=== PATIENT | male | born 1955 | race Caucasian/White ===

== ENCOUNTER 2020-07-08 17:27 | Emergency (ER) | payer MEDICAID, SELFPAY ==
[2020-07-08 17:33] VITALS: BP 111/72; PULSE 73; RESP 26; TEMP 36.9; O2SAT 95; BMI 41.1
[2020-07-08 17:45] VITALS: BP 111/72; PULSE 73; RESP 26; TEMP 36.9; O2SAT 95
--- NOTE | 2020-07-08 17:47 | XR_ITS ---
EXAMINATION: XR CHEST CLINICAL INFORMATION: Dyspnea and chest pain COMPARISON: 12/20/2019 TECHNIQUE: Frontal view of the chest was obtained. FINDINGS: Again seen are changes of median sternotomy and CABG sized heart no CHF. The lungs are hyperinflated compatible with COPD no infiltrates, effusions or lung masses are seen IMPRESSION: No acute intrathoracic disease. No interval change when compared to 12/20/2019
--- NOTE | 2020-07-08 17:47 | ECG_ITS ---
Test Reason : CHEST PAIN Blood Pressure : / mmHG Vent. Rate : 066 BPM Atrial Rate : 066 BPM P-R Int : 174 ms QRS Dur : 092 ms QT Int : 418 ms P-R-T Axes : 061 080 082 degrees QTc Int : 438 ms Normal sinus rhythm Normal ECG When compared with ECG of 20-DEC-2019 23:15, Atrial fibrillation with rapid ventricular response is no longer Present Nonspecific T wave abnormality no longer evident in Inferior leads Referred By: Leonila Bryson Electronically Signed By:AXEL LUCIO
--- NOTE | 2020-07-08 18:13 | PC.NURSE ---
PATIENT A&OX3, NSR 70S ON SWITCH ENGINEER, VSS, PT REFUSING IV AND LAB WORK, EKG PERFORMED, WILL NOTIFY PROVIDER
[2020-07-08 18:14] VITALS: PULSE 69
--- NOTE | 2020-07-08 18:15 | PC.NURSE ---
CXR BEING PERFORMED
--- NOTE | 2020-07-08 20:42 | ED.CHESTPAIN ---
HPI - Chest Pain General Chief Complaint: Chest Pain <EDELMIRA Smith Last Filed: 07/08/20 21:40> Stated Complaint: CHEST PAIN <EDELMIRA Smith Last Filed: 07/08/20 21:40> Time Seen by Provider: 07/08/20 17:37 <EDELMIRA Smith Last Filed: 07/08/20 21:40> Source: patient <EDELMIRA Smith Last Filed: 07/08/20 21:40> Mode of arrival: ambulatory <EDELMIRA Smith Last Filed: 07/08/20 21:40> Limitations: no limitations <EDELMIRA Smith Last Filed: 07/08/20 21:40> History of Present Illness HPI narrative: 64yoM c PMHx of myocardial infarction, hyperlipidemia and COPD presenting to the ED via ems c c/o Mid-sternal Chest pain that started around 4PM 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 Shortness of breath is worsened with exertion especially with walking stairs or short distances. Denies headaches, dizziness, lightheadedness, changes in vision, jaw pain, back pain, abdominal pain, nausea/vomiting, weakness, confusion, leg or any extremity swelling or edema. Patient was given 324 mg of chewable aspirin by EMS prior to arrival and patient denies any symptomatic relief. <EDELMIRA Smith Last Filed: 07/08/20 21:40> Related Data Allergies/Adverse Reactions: Allergies Allergy/AdvReac Type Severity Reaction Status Date / Time No Known Allergies Allergy Unverified 06/20/20 14:56 [No Known Allergies*] <EDELMIRA Smith - Last Filed: 07/08/20 21:40> Review of Systems Review of Systems: Yes all other systems are reviewed and are negative <EDELMIRA Smith Last Filed: 07/08/20 21:40> Constitutional: Constitutional: Reports as per HPI, Denies excessive sweating, Denies fatigue, Denies lethargy, Denies malaise and Denies night sweats <EDELMIRA Smith Last Filed: 07/08/20 21:40> Eyes: Eyes: Reports as per HPI <EDELMIRA Smith Last Filed: 07/08/20 21:40> ENT: Reports as per HPI, Denies dizziness and Denies neck pain <EDELMIRA Smith - Last Filed: 07/08/20 21:40> Cardiovascular: Cardiovascular: Denies diaphoresis, Denies syncope, Denies rapid heart rate, Denies pedal edema, Denies edema, Denies irregular heart rhythm, Denies claudication, Denies leg edema, Denies lightheadedness, Denies radiating jaw, neck or arm pain, Denies palpitations and Denies slow heart rate <EDELMIRA Smith - Last Filed: 07/08/20 21:40> Respiratory: Respiratory: Reports as per HPI and Denies cough <EDELMIRA Smith - Last Filed: 07/08/20 21:40> Gastrointestinal: Gastrointestinal: Reports as per HPI <EDELMIRA Smith - Last Filed: 07/08/20 21:40> Genitourinary: Genitourinary: Reports as per HPI <EDELMIRA Smith - Last Filed: 07/08/20 21:40> Musculoskeletal: Musculoskeletal: Reports as per HPI, Denies neck pain, Denies numbness and Denies tingling <EDELMIRA Smith - Last Filed: 07/08/20 21:40> Integumentary/Breasts: Skin/Breast: Reports as per HPI <EDELMIRA Smith - Last Filed: 07/08/20 21:40> Neurologic: Reports as per HPI, Denies dizziness, Denies syncope, Denies numbness and Denies tingling <EDELMIRA Smith - Last Filed: 07/08/20 21:40> Psychiatric: Psychiatric: Reports as per HPI <EDELMIRA Smith - Last Filed: 07/08/20 21:40> Endocrine: Endocrine: Reports as per HPI, Denies excessive sweating, Denies fatigue and Denies palpitations <EDELMIRA Smith - Last Filed: 07/08/20 21:40> Hematologic/Lymphatic: Hematologic/Lymphatic: Reports as per HPI <EDELMIRA Smith - Last Filed: 07/08/20 21:40> Allergic/Immunologic: Allergic/Immunologic: Reports as per HPI <EDELMIRA Smith - Last Filed: 07/08/20 21:40> [facility] Past Medical History Attestation statement: The following information was validated with the patient. <EDELMIRA Smith - Last Filed: 07/08/20 21:40> Medical History: Medical History COPD (chronic obstructive pulmonary disease) Hypercholesteremia Myocardial infarction <EDELMIRA Smith - Last Filed: 07/08/20 21:40> Social History Social History: Social History Alcohol intake: current Alcohol intake frequency: 3 or more drinks per day Alcohol type: beer Smoking Status: Current every day smoker Smoked in Last 30 Days: Yes Use of substances other than those prescribed or required for medical reasons: No Advance Directives: No Advance Directives Information Provided: Yes <EDELMIRA Smith - Last Filed: 07/08/20 21:40> Physical Exam Vital Signs and I&O and Narrative: Vital Signs and I&O: Vital Signs Temp 98.4 F 07/08/20 17:45 Pulse 69 07/08/20 18:14 Resp 26 H 07/08/20 17:45 BP 111/72 07/08/20 17:45 Pulse Ox 95 07/08/20 17:45 Intake & Output 07/08/20 07/08/20 07/09/20 06:59 18:59 06:59 Weight 130 kg Body Mass Index 41.1 <EDELMIRA Smith - Last Filed: 07/08/20 21:40> Vital Signs and I&O: Vital Signs Temp 98.4 F 07/08/20 17:45 Pulse 69 07/08/20 18:14 Resp 26 H 07/08/20 17:45 BP 111/72 07/08/20 17:45 Pulse Ox 95 07/08/20 17:45 Intake & Output 07/08/20 07/08/20 07/09/20 06:59 18:59 06:59 Weight 130 kg Body Mass Index 41.1 <Marcos Nation DO - Last Filed: 07/09/20 02:28> Const: General: cooperative, no acute distress, well developed, alert, awake, Physically active and poor hygiene <EDELMIRA Smith - Last Filed: 07/08/20 21:40> Nutritional Appearance: thin <EDELMIRA Smith - Last Filed: 07/08/20 21:40> Orientation/consciousness: patient oriented x3 <EDELMIRA Smith - Last Filed: 07/08/20 21:40> Limitations: no limitations <EDELMIRA Smith Last Filed: 07/08/20 21:40> HENMT: Head: Yes normal to inspection, Yes No palpable skull fracture present, Yes normocephalic and Yes atraumatic <EDELMIRA Smith - Last Filed: 07/08/20 21:40> Ears: hearing grossly normal bilaterally <EDELMIRA Smith - Last Filed: 07/08/20 21:40> General nose exam: Normal external nose present <EDELMIRA Smith - Last Filed: 07/08/20 21:40> Face and sinus: Yes normal facial exam <EDELMIRA Smith - Last Filed: 07/08/20 21:40> Mouth: Normal oral and palatal mucosa present and moist mucous membranes <EDELMIRA Smith - Last Filed: 07/08/20 21:40> Throat: Yes posterior oropharynx normal and Yes uvula midline <EDELMIRA Smith - Last Filed: 07/08/20 21:40> Eyes: General: appearance normal, both eyes and all related structures <EDELMIRA Smith - Last Filed: 07/08/20 21:40> Visual Hernández: normal visual hernández by confrontation <EDELMIRA Smith Last Filed: 07/08/20 21:40> Alignment and Position: alignment normal <EDELMIRA Smith - Last Filed: 07/08/20 21:40> Periorbital: periorbital findings normal <EDELMIRA Smith - Last Filed: 07/08/20 21:40> Eyelids: Yes eyelids normal <EDELMIRA Smith - Last Filed: 07/08/20 21:40> Conjunctivae: conjunctivae normal <EDELMIRA Smith Last Filed: 07/08/20 21:40> Sclerae: sclerae normal <EDELMIRA Smith - Last Filed: 07/08/20 21:40> Corneas: corneas normal <EDELMIRA Smith Last Filed: 07/08/20 21:40> Pupils: Equal, round and reactive pupils present, Pupils normal by confrontation and Pupil accommodation reflex normal <EDELMIRA Smith Last Filed: 07/08/20 21:40> EOM: EOMs intact bilaterally <EDELMIRA Smith Last Filed: 07/08/20 21:40> Direct Ophthalmoscopy: normal light reflex <EDELMIRA Smith Last Filed: 07/08/20 21:40> Neck: Neck: Yes normal visual inspection, Yes full ROM, Yes no lymphadenopathy, Yes no meningeal signs, Yes trachea midline and Yes supple <Leonila Bryson [facility] Last Filed: 07/08/20 21:40> Chest: Chest palpation & inspection: normal inspection of the chest, normal palpation of entire chest wall and tenderness sternum <EDELMIRA Smith Last Filed: 07/08/20 21:40> Resp: Effort & Inspection: normal respiratory effort, audible wheezes, Actively coughing, decreased respiratory effort, no respiratory distress and no stridor <Leonila Bryson [facility] Last Filed: 07/08/20 21:40> Auscultation: no crackles, no rales, no rhonchi, wheezes expiratory wheezes, inspiratory wheezes, scattered wheezes and throughout and diminished lung sounds <EDELMIRA Smith Last Filed: 07/08/20 21:40> Cardio: Rate: regular rate <EDELMIRA Smith Last Filed: 07/08/20 21:40> Rhythm: regular rhythm <EDELMIRA Smith Last Filed: 07/08/20 21:40> Heart sounds: S1 normal heart sound present and S2 normal heart sound present <EDELMIRA Smith Last Filed: 07/08/20 21:40> Peripheral pulses: Peripheral pulses 2+ throughout <EDELMIRA Smith Last Filed: 07/08/20 21:40> GI: Inspection: Yes normal to inspection <EDELMIRA Smith Last Filed: 07/08/20 21:40> Palpation (GI): Soft to palpation, nontender and No hepatosplenomegaly present <EDELMIRA Smith Last Filed: 07/08/20 21:40> Percussion: Yes normal to percussion <EDELMIRA Smith - Last Filed: 07/08/20 21:40> Auscultation: normal bowel sounds <EDELMIRA Smith Last Filed: 07/08/20 21:40> Back/Spine/Pelvis: Cervical Spine: normal cervical lordosis and cervical ROM normal <Leonila Bryson CO - Last Filed: 07/08/20 21:40> Thoracic/Lumbar Spine: thoracic and lumbar spine normal to inspection and thoraco-lumbar ROM normal <Leonila Bryson CO - Last Filed: 07/08/20 21:40> Skin: General skin exam: no rashes or lesions noted, elasticity normal and turgor normal <EDELMIRA Smith - Last Filed: 07/08/20 21:40> Neuro: General: patient oriented x3 and no meningeal signs <EDELMIRA Smith Last Filed: 07/08/20 21:40> Cranial nerves: Yes Equal, round and reactive pupils present <EDELMIRA Smith Last Filed: 07/08/20 21:40> Extrem: General: Yes normal to inspection, Yes full ROM, Yes capillary refill normal, Yes normal exam except as noted, Yes no joint enlargement, Yes no pedal edema, Yes no calf tenderness and Yes normal gait <EDELMIRA Smith - Last Filed: 07/08/20 21:40> Right upper extremity: normal to inspection and full ROM <EDELMIRA Smith - Last Filed: 07/08/20 21:40> Left upper extremity: normal to inspection and full ROM <EDELMIRA Smith Last Filed: 07/08/20 21:40> Right lower extremity: normal to inspection and full ROM <EDELMIRA Smith - Last Filed: 07/08/20 21:40> Left lower extremity: normal to inspection and full ROM <EDELMIRA Smith Last Filed: 07/08/20 21:40> Psych: Appearance: grossly normal <EDELMIRA Smith Last Filed: 07/08/20 21:40> Mental Status: mental status grossly normal <EDELMIRA Smith Last Filed: 07/08/20 21:40> Speech and movement: Normal speech and movement present <EDELMIRA Smith - Last Filed: 07/08/20 21:40> Affect: normal affect <EDELMIRA Smith - Last Filed: 07/08/20 21:40> Attitude: cooperative <EDELMIRA Smith - Last Filed: 07/08/20 21:40> Thought process: Normal thought process present <EDELMIRA Smith - Last Filed: 07/08/20 21:40> Thought content: Normal thought content present <EDELMIRA Smith - Last Filed: 07/08/20 21:40> Insight: Good insight present (Psych) <EDELMIRA Smith - Last Filed: 07/08/20 21:40> Judgement: Good judgement present (Psych) <EDELMIRA Smith Last Filed: 07/08/20 21:40> Course Course Course Narrative: -Patient seen at 17:37PM 64yoM c PMHx of myocardial infarction, hyperlipidemia and COPD presenting to the ED via ems c c/o Mid-sternal Chest pain that started around 4PM 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 Shortness of breath is worsened with exertion especially with walking stairs or short distances. Denies headaches, dizziness, lightheadedness, changes in vision, jaw pain, back pain, abdominal pain, nausea/vomiting, weakness, confusion, leg or any extremity swelling or edema. Patient was given 324 mg of chewable aspirin by EMS prior to arrival and patient denies any symptomatic relief. - Concern for [place] vs COPD exacerbation vs PNA - Plan: Labs, CXR, EKG. Then re-evaluate - when the nurse went in to draw the patient's labs he decided to leave against medical advice/eloped and refused all labs and further evaluation and treatment. Grace and the nursing stack supervisor and I tried to convince the patient to stay for blood work and the patient refused therefore she called the cab to bring him home. Patient was instructed to return if any new or worsening symptoms. <EDELMIRA Smith Last Filed: 07/08/20 21:40> MDM - Chest Pain ECG Data ECG #1: Attestation: I personally reviewed and interpreted this ECG as follows: <EDELMIRA Smith - Last Filed: 07/08/20 21:40> ECG interpretation date: 07/08/20 <EDELMIRA Smith - Last Filed: 07/08/20 21:40> ECG interpretation time: 17:53 <EDELMIRA Smith - Last Filed: 07/08/20 21:40> Interpretation: Normal sinus rhythm with a ventricular rate of 66 normal NV interval, normal axis, normal QRS, normal QTC, no ST-T wave changes, no acute ischemic changes noted. Similar when compared to prior on 12/20/2019 <EDELMIRA Smith - Last Filed: 07/08/20 21:40> Discharge Plan Discharge Clinical Impression: Chest pain, Acute dyspnea <EDELMIRA Smith - Last Filed: 07/08/20 21:40> Patient Disposition: Elopement <EDELMIRA Smith - Last Filed: 07/08/20 21:40> Discharge Date/Time: 07/08/20 19:46 <EDELMIRA Smith - Last Filed: 07/08/20 21:40>
== END 2020-07-08 19:46 | disposition left against medical advice (07) ==
PROVIDERS: Emergency Provider Emergency Medicine
DX: R07.9 Chest pain, unspecified (principal); R06.00 Dyspnea, unspecified; I25.2 Old myocardial infarction; E78.5 Hyperlipidemia, unspecified; Z79.899 Other long term (current) drug therapy
CPT/HCPCS: 71045; 93005; 93010; 99284

== ENCOUNTER → 2020-08-12 14:07 | Outpatient (BNVA) | payer MEDICAID, SELFPAY | PROVIDERS: Visit Provider Internal Medicine Cardiovascular Disease | DX: I25.5 Ischemic cardiomyopathy (principal); E78.01 Familial hypercholesterolemia; F10.10 Alcohol abuse, uncomplicated; Z95.1 Presence of aortocoronary bypass graft; Z79.82 Long term (current) use of aspirin; Z79.899 Other long term (current) drug therapy; Z72.0 Tobacco use | CPT/HCPCS: 93005; 99202 ==

== ENCOUNTER → 2020-08-19 07:28 | Outpatient (REF) | payer MEDICAID, SELFPAY ==
--- NOTE | 2020-08-19 07:43 | CA_ITS ---
Transthoracic Echocardiogram Patient (Last, First, Middle): Noble Valencia F Gender: Male Date of : 1955 Age: 65 Procedure Date: 08/19/2020 Procedure Type: Transthoracic Echocardiogram Location: OP Height: 177.8 cm Weight: 61.24 kg BSA: 1.77 m2 Heart Rate: bpm BP: 118 / 60 mmHg Mental Health Program Manager: Referring MD: Luca Prado MD Symptoms: I25.5 ISCHEMIC CMP Study Quality: Fair ECG Rhythm: Sinus Conclusions: - The left ventricular systolic function is normal. The visually estimated ejection fraction is between 55-60%. - The basal inferior segment is akinetic. - No obvious valvular pathology seen on this study. - Moderate pulmonary hypertension is present. Findings Left Ventricle Normal left ventricular cavity size. There is normal left ventricular wall thickness. The left ventricular systolic function is normal. The visually estimated ejection fraction is between 55-60%. There is evidence of regional wall motion abnormalities. Diastolic function is normal for age. Wall Motion Rest Echo Findings The basal inferior segment is akinetic. Right Ventricle Normal right ventricular cavity size. There is low normal right ventricular systolic function. Atria Both atria are normal in size. Aortic Valve The aortic valve was not well visualized. There is no aortic valve stenosis. There is no aortic valve regurgitation. Mitral Valve The mitral valve appears normal. There is mild mitral valve regurgitation. There is no mitral valve stenosis. Pulmonic Valve The pulmonic valve was not well visualized. Tricuspid Valve Normal tricuspid valve structure. There is mild tricuspid valve regurgitation. The right ventricular systolic pressure is 56 mmHg. Moderate pulmonary hypertension is present. Great Vessels The asc aorta is normal in size. Venous The inferior vena cava is mildly dilated and collapses greater than 50% with inspiration. Pericardium/Pleural There is no evidence of pericardial effusion. Prior Study Comparison Changes noted compared to prior study dated: 03/30/2018. Wall motion abnormalities not well visualized in prior study. RVSP higher. Recommendations, Care & Conclusions No obvious valvular pathology seen on this study. Measurements 2D Linear Measurements IVSd: 0.92 0.6-0.9/0.6-1.0 cm LVIDd: 4.60 3.9-5.3/4.2-5.9 cm LVIDd Index: 2.60 2.4-3.2/2.2-3.1 cm/m2 LVIDs: 3.36 2.0-3.6 cm LVPWd: 1.08 0.7-1.1 cm Ao Root: 3.00 2.1-3.5 cm LA Diam: 4.30 2.7-3.8/3.0-4.0 cm LAIDs Index: 2.43 1.5-2.3 cm/m2 LV Mass: 197.49 67-162/88-224 g LV Mass Index: 111.58 43-95/49-115 g/m2 LVOT Diam: 2.10 3.0+(-)1.3 cm 2D Systolic Function EF 4C: 59.80 >55% EF 2C: 54.20 >55% EF BiP: 58.10 >55% Mitral Valve MV Pk E: 0.72 MV PK A: 0.69 MV Decel Time: 137.00 E/A: 1.00 E'Lateral: 11.90 E'Medial: 9.48 E/E' Med: 7.60 E/E' Lat: 6.00 PHT: 40.00 MVA PHT: 5.50 Decel Lyman: 5.23 Aortic Valve AoV Pk Sang: 1.18 AoV Mn Sang: 0.78 AoV VTI: 0.26 AoV Pk Grad: 6.00 Aov Mn Grad: 3.00 KWESI Cont.VTI: 2.42 LVOT LVOT Pk Sang: 0.76 LVOT Mn Sang: 0.54 LVOT VTI: 0.18 LVOT Pk Grad: 2.00 LVOT Mn Grad: 1.00 LVOT Diam: 2.10 LVOT Area: 3.46 Diastolic Function MV Pk E: 0.72 MV Pk A: 0.69 E/A: 1.00 E'Medial: 9.48 E/E' Med: 7.60 E' Laterial: 11.90 E/E' Lat: 6.00 Tricuspid Valve TR Pk Sang: 3.45 TR Pk Grad: 48.00 RA Press: 8.00 RVSP: 56.00 Great Vessels Aorta Ao Root-2D: 3.00 2.0-3.7 cm Pulmonary Valve PV Pk Sang: 1.00 Peak PV Grad: 4.00 Updated in Other Vendor System with Status of Final Walter Richardson MD electronically signed on 08/20/2020 11:49:43 AM with status of Final
[2020-08-19 09:42] LABS: Hematocrit 36.3 % (42-52); Hemoglobin 11.4 g/dl (14.0-18.0); Mean Corpuscular HGB Conc 31.4 g/dl (31.0-36.0); Mean Corpuscular Hemoglobin 30.4 pg (27.0-33.0); Mean Corpuscular Volume 96.8 fL (80-98); Mean Platelet Volume 10.3 fL (9.4-12.4); Platelet Count 294 X10*3/uL (160-400); Red Blood Count 3.75 X10*6/uL (4.60-5.80); Red Cell Distribution Width 14.6 % (11.0-16.0); White Blood Count 7.3 X10*3/uL (4.8-10.8)
[2020-08-19 10:02] LABS: Alanine Aminotransferase 15 U/L (0-40); Albumin Level 4.3 g/dL (3.5-5.0); Alkaline Phosphatase 116 U/L (39-117); Anion Gap 16 (12-20); Aspartate Amino Transferase 30 U/L (5-37); Bilirubin Total 0.3 mg/dL (0.0-1.0); Blood Urea Nitrogen 10 mg/dL (9-16); Carbon Dioxide 27 mmol/L (22-29); Chloride 104 mmol/L (96-108); Cholesterol 161 mg/dL; Estimated Glomerular Filt Rate > 60; Glucose Random 78 mg/dL (60-115); HDL Cholesterol 73 mg/dL; LDL Cholesterol Calculated 75 mg/dl; Potassium 4.2 mmol/l (3.3-5.1); Sodium 143 mmol/L (135-145); Total Protein 7.6 g/dL (6.5-8.0); Triglycerides 67 mg/dL
== END ==
LOC: HO.CARD 07:28
PROVIDERS: PCP Student in an Organized Health Care Education/Training Program; Visit Provider Internal Medicine Cardiovascular Disease
DX: I25.5 Ischemic cardiomyopathy (principal); E78.01 Familial hypercholesterolemia
CPT/HCPCS: 36415; 80053; 80061; 85027; 93306

== ENCOUNTER 2020-10-19 10:57 | Inpatient (IN) | payer MEDICAID, SELFPAY ==
[2020-10-19] VITALS (12 sets, daily range): BP systolic 118–164; BP diastolic 64–101; PULSE 71–154; RESP 16–175; TEMP 36.3–36.8; O2SAT 2–98; BMI 19.9
--- NOTE | 2020-10-19 | ECG_ITS ---
Test Reason : RAPID AFIB REPEAT Blood Pressure : / mmHG Vent. Rate : 090 BPM Atrial Rate : 090 BPM P-R Int : 144 ms QRS Dur : 084 ms QT Int : 382 ms P-R-T Axes : 082 087 -15 degrees QTc Int : 467 ms Sinus rhythm with occasional Premature ventricular complexes and Premature atrial complexes Abnormal QRS-T angle, consider primary T wave abnormality Abnormal ECG When compared with ECG of 19-OCT-2020 14:46, Sinus rhythm has replaced Atrial fibrillation Vent. rate has decreased BY [address] no longer depressed in Inferior leads ST no longer depressed in Anterolateral leads T wave inversion less evident in Inferior leads Referred By: Vivien Green Electronically Signed By:NANCY SUAREZ MD
--- NOTE | 2020-10-19 14:26 | XR_ITS ---
EXAMINATION: XR CHEST CLINICAL INFORMATION: Cough COMPARISON: Previous chest x-ray most recent July 2020 TECHNIQUE: Frontal view of the chest was obtained. FINDINGS: The cardiac and mediastinal contours are stable. The lungs are well inflated. The lungs are clear. There is no pleural effusion or pneumothorax. There are degenerative changes of the spine. There are median sternotomy wires. XR/XR chest 1V IMPRESSION: Well-inflated lungs. No evidence for acute disease in the chest.
--- NOTE | 2020-10-19 14:26 | ECG_ITS ---
Test Reason : DYSPNEA Blood Pressure : / mmHG Vent. Rate : 166 BPM Atrial Rate : 147 BPM P-R Int : 000 ms QRS Dur : 082 ms QT Int : 284 ms P-R-T Axes : 000 088 270 degrees QTc Int : 471 ms Atrial fibrillation with rapid ventricular response ST & T wave abnormality, consider inferior ischemia Abnormal ECG When compared with ECG of 08-JUL-2020 17:57, Atrial fibrillation has replaced Sinus rhythm Vent. rate has increased BY [address] now depressed in Inferior leads T wave inversion now evident in Inferior leads Referred By: Solitario Wei Electronically Signed By:NANCY SUAREZ MD
--- NOTE | 2020-10-19 14:42 | PC.NURSE ---
pt moved from 19H into emc1, pt alert and orient, skin pale and sclera slightly jaundice, pt reports drinking daily-last drink was yesterday, has a dry cough but according to the pt its chronic due to smoking hx, ls diminished in the bases and pt reports increased in sob since yesterday. also states having left isded jaw pain and left sided neck pain, denies falls
--- NOTE | 2020-10-19 15:04 | PC.NURSE ---
pt getting lopressor 5mg iv, rapid afib ranging from 180's-150's, bp 131/101 dr morgan at bedside
[2020-10-19] MEDS: Metoprolol Tartrate 5 MG in 0.9 % Sodium Chloride 50 ML 230 MG IV (15:07)
[2020-10-19 15:11] LABS: MANUAL DIFF FLAG NO
[2020-10-19 15:12] LABS: Basophils Absolute Auto 0.1 X10*3/uL (0.0-0.2); Basophils Percent Auto 0.5 % (0-2); Eosinophils Percent Auto 0.1 % (0-4); Hematocrit 37.8 % (42-52); Hemoglobin 12.2 g/dl (14.0-18.0); Imm Gran Abs Auto 0.04 X10*3/uL (0.00-0.03); Imm Gran Pct Auto 0.3 % (0.0-0.4); Lymphocytes Absolute Auto 1.3 X10*3/uL (1.2-4.9); Lymphocytes Percent Auto 9.6 % (20-40); Mean Corpuscular HGB Conc 32.3 g/dl (31.0-36.0); Mean Corpuscular Hemoglobin 29.4 pg (27.0-33.0); Mean Corpuscular Volume 91.1 fL (80-98); Mean Platelet Volume 10.2 fL (9.4-12.4); Monocytes Absolute Auto 1.4 X10*3/uL (0.1-1.2); Monocytes Percent Auto 10.3 % (2-11); Neutrophils Absolute Auto 10.9 X10*3/uL (2.0-8.3); Neutrophils Percent Auto 79.2 % (45-73); Platelet Count 289 X10*3/uL (160-400); Red Blood Count 4.15 X10*6/uL (4.60-5.80); White Blood Count 13.8 X10*3/uL (4.8-10.8)
[2020-10-19 15:18] LABS: INTERNATIONAL NORM RATIO 1.4 (0.9-1.1); Prothrombin Time 16.2 SEC (10.8-13.0)
[2020-10-19 15:21] LABS: D Dimer 632 NG/ML
--- NOTE | 2020-10-19 15:21 | ED.URI ---
HPI - URI/Sore Throat General Chief Complaint: Upper Respiratory Symptoms Stated Complaint: jaw pain Time Seen by Provider: 10/19/20 14:26 History of Present Illness HPI Narrative: Patient is a 65-year-old male with a history of coronary artery disease. History of NSTEMI in the past. History of triple bypass in the past. Long history of alcohol abuse drinks 3 pt of vodka a day. Also smokes 1 pack to 2 packs of cigarettes a day. Presents today with increasing shortness of breath coughing jaw pain palpitation weakness shortness of breath. Patient is a poor historian unable to give detail. He denies any history of having arrhythmias in the past. He did state he had a previous heart attack which required triple bypass. History of COPD emphysema. Related Data Home Medications Medication Instructions Recorded Confirmed albuterol sulfate 90 mcg/actuation 2 puff INHALATION Q6H PRN 08/12/20 08/12/20 aerosol inhaler aspirin 81 mg tablet,delayed 81 mg PO DAILY 08/12/20 08/12/20 release atorvastatin 20 mg tablet 20 mg PO DAILY 08/12/20 08/12/20 fluticasone propionate 50 1 spray INTRANASAL Q12H 08/12/20 08/12/20 mcg/actuation nasal spray,suspension folic acid 1 mg tablet 1 mg PO DAILY 08/12/20 08/12/20 metoprolol tartrate 75 mg tablet 75 mg PO BID 08/12/20 08/12/20 multivitamin 1 tab PO DAILY 08/12/20 08/12/20 tiotropium bromide 18 mcg capsule 1 cap INHALATION DAILY 08/12/20 08/12/20 with inhalation device vitamin B complex 1 tab PO DAILY 08/12/20 08/12/20 Previous Rx's Medication Instructions Recorded clopidogrel 75 mg tablet 75 mg PO DAILY #90 tab 08/19/20 Allergies Allergy/AdvReac Type Severity Reaction Status Date / Time No Known Allergies Allergy Unverified 06/20/20 14:56 [No Known Allergies*] Review of Systems Review of Systems: Unable to obtain review systems secondary to patient's condition [facility] Past Medical History Medical History Alcohol abuse COPD (chronic obstructive pulmonary disease) Hypercholesteremia Myocardial infarction Tobacco abuse Surgical History H/O heart bypass surgery Social History Social History Alcohol intake: current Alcohol intake frequency: 3 or more drinks per day Alcohol type: hard liquor Smoking Status: Current every day smoker Tobacco Type: Cigarette Use of substances other than those prescribed or required for medical reasons: No Advance Directives: No Advance Directives Information Provided: Yes Physical Exam Vital Signs: Vital Signs: Last Vital Signs Temp 98.3 F 10/19/20 13:58 Pulse 81 10/19/20 15:24 Resp 20 10/19/20 15:15 BP 145/81 H 10/19/20 15:24 Pulse Ox 97 10/19/20 15:15 Body Mass Index 19.9 Appearance: Alert. Oriented X3. Sick appearing Eyes: Pupils equal, round and reactive to light. ENT: Pharynx normal. Neck: Normal inspection. Neck supple. No lymph nodes noted. No crepitus CVS: Tachycardic and irregular Respiratory: Diminished breath sounds bilaterally minimal wheezing at the bases, increased work of breathing Abdomen: Soft and nontender. No rigidity. No distention. good BS x4 Skin: Skin warm and dry. Normal skin color. Normal skin turgor. Extremities: No lower extremity edema. Neurovascular intact to all extremities. No Lacerations. No Rash Neuro: Oriented X 3. No motor deficit. No sensory deficit. Moving all extermities. No slurred speech MDM - URI/Sore Throat MDM Narrative Medical decision making narrative: Patient went into a rapid AFib. Heart rate was approximately 180. Given Lopressor spontaneously converted into a sinus pattern. Patient's atrial fibrillation likely related to having a holiday heart is he has a long history of alcohol. Thyroids are pending. Patient's electrolytes showed an anion gap suggestive of an alcoholic ketoacidosis. Will start patient on a banana bag. O2 sat was 90% on renal room air likely related to COPD. Patient's coronavirus test was negative. Given steroid and also albuterol. Patient's case discussed with the hospitalist team. Will be admitted. Currently in guarded condition. Lab Data Result diagrams: 10/19/20 15:04 10/19/20 15:03 Labs: Lab Results 10/19/20 10/19/20 10/19/20 Range/Units 15:03 15:03 15:04 WBC 13.8 H (4.8-10.8) X10*3/uL RBC 4.15 L (4.60-5.80) X10*6/uL Hgb 12.2 L (14.0-18.0) g/dl Hct 37.8 L (42-52) % MCV 91.1 (80-98) fL MCH 29.4 (27.0-33.0) pg MCHC 32.3 (31.0-36.0) g/dl RDW 17.0 H (11.0-16.0) % Plt Count 289 (160-400) X10*3/uL MPV 10.2 (9.4-12.4) fL Immature Gran % (Auto) 0.3 (0.0-0.4) % Neut % (Auto) 79.2 H (45-73) % Lymph % (Auto) 9.6 L (20-40) % Kendall % (Auto) 10.3 (2-11) % Eos % (Auto) 0.1 (0-4) % Baso % (Auto) 0.5 (0-2) % Lymph # (Auto) 1.3 (1.2-4.9) X10*3/uL Kendall # (Auto) 1.4 H (0.1-1.2) X10*3/uL Eos # (Auto) 0.0 (0.0-0.4) X10*3/uL Baso # (Auto) 0.1 (0.0-0.2) X10*3/uL Abs Immat Gran (auto) 0.04 H (0.00-0.03) X10*3/uL Absolute Neuts (auto) 10.9 H (2.0-8.3) X10*3/uL Absolute Nucleated RBC 0.000 (0.0-0.012) X10*3/uL Nucleated RBC % (auto) 0.0 (0.0-0.2) /100WBC PT (10.8-13.0) SEC INR (0.9-1.1) D-Dimer NG/ML Sodium 141 (135-145) mmol/L Potassium 4.2 (3.3-5.1) mmol/l Chloride 98 (96-108) mmol/L Carbon Dioxide 24 (22-29) mmol/L Anion Gap 23 H (12-20) BUN 18 H D (9-16) mg/dL Creatinine 0.87 (0.5-1.4) mg/dL Estim Creat Clear Calc 74.2 Estimated GFR > 60 Random Glucose 78 (60-115) mg/dL Calcium 9.2 (8.4-10.2) mg/dL Magnesium 1.5 L (1.6-2.6) mg/dL Total Bilirubin 1.1 H (0.0-1.0) mg/dL Direct Bilirubin 0.7 H (0.0-0.5) mg/dL AST 13 D (5-37) U/L ALT 6 (0-40) U/L Alkaline Phosphatase 110 (39-117) U/L Troponin I High Sens (<3.5-35.0) ng/L Total Protein 7.6 (6.5-8.0) g/dL Albumin 3.9 (3.5-5.0) g/dL TSH 1.26 (0.32-4.0) uIU/mL Ethyl Alcohol < 10 mg/dL 10/19/20 10/19/20 Range/Units 15:04 15:04 WBC (4.8-10.8) X10*3/uL RBC (4.60-5.80) X10*6/uL Hgb (14.0-18.0) g/dl Hct (42-52) % MCV (80-98) fL MCH (27.0-33.0) pg MCHC (31.0-36.0) g/dl RDW (11.0-16.0) % Plt Count (160-400) X10*3/uL MPV (9.4-12.4) fL Immature Gran % (Auto) (0.0-0.4) % Neut % (Auto) (45-73) % Lymph % (Auto) (20-40) % Kendall % (Auto) (2-11) % Eos % (Auto) (0-4) % Baso % (Auto) (0-2) % Lymph # (Auto) (1.2-4.9) X10*3/uL Kendall # (Auto) (0.1-1.2) X10*3/uL Eos # (Auto) (0.0-0.4) X10*3/uL Baso # (Auto) (0.0-0.2) X10*3/uL Abs Immat Gran (auto) (0.00-0.03) X10*3/uL Absolute Neuts (auto) (2.0-8.3) X10*3/uL Absolute Nucleated RBC (0.0-0.012) X10*3/uL Nucleated RBC % (auto) (0.0-0.2) /100WBC PT 16.2 H (10.8-13.0) SEC INR 1.4 H (0.9-1.1) D-Dimer 632 NG/ML Sodium (135-145) mmol/L Potassium (3.3-5.1) mmol/l Chloride (96-108) mmol/L Carbon Dioxide (22-29) mmol/L Anion Gap (12-20) BUN (9-16) mg/dL Creatinine (0.5-1.4) mg/dL Estim Creat Clear Calc Estimated GFR Random Glucose (60-115) mg/dL Calcium (8.4-10.2) mg/dL Magnesium (1.6-2.6) mg/dL Total Bilirubin (0.0-1.0) mg/dL Direct Bilirubin (0.0-0.5) mg/dL AST (5-37) U/L ALT (0-40) U/L Alkaline Phosphatase (39-117) U/L Troponin I High Sens 21.8 (<3.5-35.0) ng/L Total Protein (6.5-8.0) g/dL Albumin (3.5-5.0) g/dL TSH (0.32-4.0) uIU/mL Ethyl Alcohol mg/dL ECG Data Interpretation: Atrial fibrillation heart rate is [address] segment elevation noted. Second EKG showed a sinus pattern heart rate was approximately 90. No acute ST segment elevation noted. Critical Care Time Critical Care Time Total Critical Care Time: 40 Attestation: I have personally provided 40 minutes of critical care time exclusive of time spent on separately billable procedures. Time includes review of lab data, radiology results, discussion with consultants, and monitoring for potential decompensation. Interventions were performed as documented above Discharge Plan Discharge Prescriptions: No Action clopidogrel 75 mg tablet 75 mg PO DAILY Qty: 90 RF: 4 aspirin 81 mg tablet,delayed release (DR/EC) 81 mg PO DAILY RF: 0 atorvastatin 20 mg tablet 20 mg PO DAILY RF: 0 fluticasone propionate 50 mcg/actuation spray,suspension 1 spray intranasal Q12H RF: 0 folic acid 1 mg tablet 1 mg PO DAILY RF: 0 metoprolol tartrate 75 mg tablet 75 mg PO BID RF: 0 multivitamin Tablet 1 tab PO DAILY RF: 0 albuterol sulfate [ProAir HFA] 90 mcg/actuation HFA aerosol inhaler 2 puff inhalation Q6H PRNRF: 0 Spiriva with HandiHaler 18 mcg capsule, w/inhalation device 1 cap inhalation DAILY RF: 0 vitamin B complex [B Complex-Vitamin B12] Tablet 1 tab PO DAILY RF: 0
--- NOTE | 2020-10-19 15:22 | PC.NURSE ---
appears that pt's broke the rapid a-fib, hr in the 80's ns obtained repeat ekg
[2020-10-19 15:38] LABS: Ethanol < 10 mg/dL
[2020-10-19 15:46] LABS: Troponin-I High Sensitivity 21.8 ng/L (<3.5-35.0)
[2020-10-19 15:47] LABS: Alanine Aminotransferase 6 U/L (0-40); Albumin Level 3.9 g/dL (3.5-5.0); Alkaline Phosphatase 110 U/L (39-117); Aspartate Amino Transferase 13 U/L (5-37); Bilirubin Direct 0.7 mg/dL (0.0-0.5); Bilirubin Total 1.1 mg/dL (0.0-1.0); Blood Urea Nitrogen 18 mg/dL (9-16); Calcium 9.2 mg/dL (8.4-10.2); Creatinine Clr Calc Pharmacy 74.2; Estimated Glomerular Filt Rate > 60; Magnesium 1.5 mg/dL (1.6-2.6); Total Protein 7.6 g/dL (6.5-8.0)
[2020-10-19 15:58] LABS: Anion Gap 23 (12-20); Carbon Dioxide 24 mmol/L (22-29); Chloride 98 mmol/L (96-108); Glucose Random 78 mg/dL (60-115); Potassium 4.2 mmol/l (3.3-5.1); Sodium 141 mmol/L (135-145)
[2020-10-19 16:02] LABS: Thyroid Stimulating Hormone 1.26 uIU/mL (0.32-4.0)
--- NOTE | 2020-10-19 16:14 | PC.NURSE ---
pt sleeping, o2 drooped down to 88% on room air, pt put on 2l via nasal cannula
[2020-10-19 16:19] LABS: Influenza A PCR NEGATIVE (Negative); Influenza B PCR NEGATIVE (Negative); Resp Syncy Virus RNA Qual PCR NEGATIVE (Negative); SARS COV2 PCR INHOUSE NEGATIVE (Negative)
[2020-10-19] MEDS: Aspirin 81 MG TAB.CHEW 324 MG PO (16:19)
[2020-10-19] MEDS: Magnesium Sulfate/H2O 2 GM/50 ML PIGGYBACK IV (16:21)
--- NOTE | 2020-10-19 16:33 | PC.NURSE ---
pt's right side of the throat very red/swollen, mucus membranes dry, pt medicated per md orders, dr morgan verbal order ro infuse the mad 2 g over 30min ns on the monitor, vs stable
[2020-10-19] MEDS: Enoxaparin Sodium 40 MG/0.4 ML SYRINGE SUBCUT (18:12)
--- NOTE | 2020-10-19 18:12 | PC.NURSE ---
pt reports feeling better, vs stable ns on the monitor dinner try set up and provided
--- NOTE | 2020-10-19 18:13 | HP_ITS ---
DATE OF SERVICE: 10/19/2020 [employer]COHOL LAW ENFORCEMENT AGENT: Dr. Luca Prado. HISTORY OF PRESENTING ILLNESS: This is a 65-year-old gentleman with past medical history significant for coronary artery disease, status post CABG, long-standing history of alcohol abuse, who presented to [facility] due to symptoms of shortness of breath and jaw pain. According to the patient, he has a constant jaw pain since yesterday. He also complains of sore throat, decreased p.o. intake due to throat pain, complains of generalized weakness and palpitation. The patient in the ER was noticed to be in atrial fibrillation with rapid ventricular rate with no prior history of atrial fibrillation. The patient's oxygenation was stable at 95% on room air on arrival to the ER. The patient was treated in the emergency room with IV metoprolol, aspirin, Ventolin, magnesium, and dexamethasone. The patient converted to normal sinus rhythm. Currently, he is resting comfortably. Denies any chest pain. Complaining of persistent left-sided jaw pain and sore throat. PAST MEDICAL HISTORY: Significant for: 1. History of coronary artery disease, status post triple-vessel CABG. 2. History of hyperlipidemia. 3. History of COPD. PAST SURGICAL HISTORY: Status post bypass surgery. SOCIAL HISTORY: The patient lives at home with his . He smokes 1 pack of cigarettes a day. He admits of drinking 3 alcoholic beverages, but not providing further details. He is ambulatory. MEDICATIONS: On admission are albuterol 2 puff inhaler q.6 hours as needed, aspirin 81 mg daily, Lipitor 20 mg daily, Plavix 75 mg daily, fluticasone nasal spray q.12 hours, folic acid 1 mg daily, metoprolol 75 mg b.i.d., multivitamin 1 p.o. daily, Spiriva 1 inhaler daily, and vitamin B complex 1 tablet p.o. daily. FAMILY HISTORY: The patient denies any history of premature coronary artery disease in family. REVIEW OF SYSTEMS: SUPERVISOR PIPELINE: The patient denies any headache, lightheadedness, or dizziness. CVS: He denies any chest pain. Palpitations now resolved. GASTROINTESTINAL: He denies any nausea, vomiting, or diarrhea. SKIN: He denies any rash. Rest all other systems are reviewed and are negative. PHYSICAL EXAMINATION: GENERAL: The patient is ill-appearing, cachectic looking, in no respiratory distress. VITAL SIGNS: BP 152/83, pulse of 97, respiratory rate 20, O2 saturation 98% on room air. HEENT: Pupils are equal, round, and reactive to light and accommodation. Extraocular muscles are intact. Anicteric sclerae. NECK: Supple. No increased JVD. LUNGS: Clear to auscultation bilaterally with diminished breath sound at bases. HEART: Regular rate and rhythm. Difficult to appreciate any murmur. ABDOMEN: Soft, nontender. Bowel sounds are audible. EXTREMITIES: Without clubbing, cyanosis, or edema. Oral mucosa is moist. The patient has a small area of redness on the uvula. He is edentulous. No lesions noted on the lower gums on the left side. NEURO: Nonfocal. SKIN: Moist with no rashes. LABORATORY DATA: WBC 13,800, hemoglobin 12.2, hematocrit 37, platelet of 289. INR of 1.4. Sodium 141, potassium 4.2, chloride 98, anion gap 23, BUN 18, creatinine of 0.87, random blood sugar 78, magnesium low at 1.5, total bilirubin 1.1. Troponin 21.8. Albumin 3.9. TSH 1.26. Alcohol level less than 10. Gonzáles PCR negative. EKG showed atrial fibrillation with RVR with ST and T-wave changes in the inferior leads. Chest x-ray showed no acute abnormality. ASSESSMENT AND PLAN: 65-year-old gentleman with known history of coronary artery disease, status post coronary artery bypass graft, presented to [facility] due to shortness of breath and jaw pain, will be admitted to medical floor with a diagnosis of new-onset atrial fibrillation. 1. Atrial fibrillation with rapid ventricular rate. Most likely was cause of the patient's shortness of breath and palpitations. The patient has no prior history of atrial fibrillation. TSH is within normal range likely due to alcohol use. We will obtain echocardiogram to rule out valvular disease. The patient will be continued on home dose of metoprolol. Follow echo, obtain a Cardiology consultation. The patient's troponin is flat. EKG showing inferior ischemic changes likely rate-related. We will repeat EKG. 2. Jaw pain. Less likely due to coronary artery disease since pain is constant with sore throat, likely stomatitis. The patient will be placed on Magic mouthwash and Cepacol lozenges. We will follow clinical course closely. The patient also has elevated WBC count, but no fevers. We will cover with antibiotics for mouth organisms. 3. Coronary artery disease, status post coronary artery bypass graft. The patient has no current chest pain. Troponins are flat. Follow EKG and echocardiogram. Continue home dose of aspirin, Lipitor, and metoprolol. Follow lipid profile at a.m. 4. Tobacco use disorder. Counseling done. The patient will be placed on nicotine patch. 5. History of alcohol abuse with high risk for withdrawal. The patient will be placed on phenobarb protocol, thiamine, folic acid, and we will obtain a CARE team consultation prior to discharge. 6. Hypomagnesemia, likely due to poor nutrition. We will replace and follow magnesium level. 7. Code status: The patient wishes to be a full code. 8. Deep vein thrombosis prophylaxis. The patient will be placed on Lovenox. We will hold off on anticoagulation for new-onset atrial fibrillation since it was a brief episode. Otherwise, the patient will be considered for anticoagulation if he stops drinking alcohol and has less high risk for falls. 9. Malnutrition. The patient has a BMI of 19.9, likely due to poor nutrition with alcohol abuse. We will add Ensure supplements. MD ELBA Matta/DOLORES / [phone]
--- NOTE | 2020-10-19 18:22 | PC.NURSE ---
Daughter updated on treatment plan and plan for admission.
[2020-10-19] MEDS: PHENobarbitaL sodium 130 MG/ML VIAL 196 MG IM (19:12)
[2020-10-19] MEDS: Mag&Al/Sim/Diphenhyd/Lidocaine 10 ML ORAL.SUSP PO (19:13)
--- NOTE | 2020-10-19 19:17 | PC.NURSE ---
MEDICATED CHARTED. NEXT PHENOBARB DOSE DUE AT 2215. 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
--- NOTE | 2020-10-19 21:03 | PC.NURSE ---
Pt transferred from room 3 to room 14. VSS. Continue to monitor.
[2020-10-19] MEDS: Amoxicillin 500 MG CAPSULE PO (22:10)
--- NOTE | 2020-10-19 22:16 | PC.NURSE ---
refusing phenobarb stating no shots this rn trying to convince patient to take medication. pt seems to understand risk and still refuses. no tremors, unlabored resp at rest, skin pale warm dry.
--- NOTE | 2020-10-19 23:03 | PC.NURSE ---
NSR on monitor. patient continues to refuse phenobarb. I dont care if i seize. it doesn't matter.
[2020-10-20] VITALS (11 sets, daily range): BP systolic 103–152; BP diastolic 56–83; PULSE 70–90; RESP 16–18; TEMP 36.6–37.1; O2SAT 91–95
--- NOTE | 2020-10-20 02:04 | PC.NURSE ---
pt continues to refuse phenobarbitol. patient aware of implications. continuing to monitor.
--- NOTE | 2020-10-20 06:00 | PC.NURSE ---
pt refusing all meds and am blood draw. hospitalist aware. pt to be d/c at this time by day staff.
[2020-10-20 08:22] LABS: Anion Gap 15 (12-20); Blood Urea Nitrogen 19 mg/dL (9-16); Calcium 8.4 mg/dL (8.4-10.2); Carbon Dioxide 26 mmol/L (22-29); Chloride 105 mmol/L (96-108); Cholesterol 133 mg/dL; Creatinine Clr Calc Pharmacy 88.5; Estimated Glomerular Filt Rate > 60; Glucose Random 149 mg/dL (60-115); HDL Cholesterol 39 mg/dL; LDL Cholesterol Calculated 81 mg/dl; Potassium 3.9 mmol/l (3.3-5.1); Sodium 142 mmol/L (135-145); Triglycerides 68 mg/dL
[2020-10-20] MEDS: Metoprolol Tartrate 25 MG TABLET 75 MG PO (10:07)
[2020-10-20] MEDS: Atorvastatin Calcium 20 MG TABLET PO (10:08)
[2020-10-20] MEDS: Amoxicillin 500 MG CAPSULE PO ×3 (10:08→20:09)
[2020-10-20] MEDS: Folic Acid 1 MG TABLET PO (10:08)
[2020-10-20] MEDS: Clopidogrel Bisulfate 75 MG TABLET PO (10:08)
[2020-10-20] MEDS: Aspirin Enteric Coated 81 MG TABLET.DR PO (10:09)
[2020-10-20] MEDS: Multivitamin TABLET 1 TAB PO (10:09)
--- NOTE | 2020-10-20 10:57 | PM.CNCAR ---
History of Present Illness History of Present Illness Date of Service: 10/20/20 Requesting physician: Coni Aguirre Consult reason: atrial fibrillation Chief complaint: atrial fibrillation with RVR Narrative: We are asked to see Noble in cardiology consultation today for atrial fibrillation with rapid ventricular response. Patient says he came to the hospital because he was getting more short of breath and had left jaw discomfort. His left jaw discomfort is much better. However when he came to the emergency room was not a to be in atrial fibrillation with rapid ventricular response. He has no prior history of atrial fibrillation as per him. In the emergency room he was treated with IV metoprolol ventral in magnesium and dexamethasone. Subsequently converted to sinus rhythm. He did not feel rapid heart rate. He did not have any orthopnea, PND, leg edema. Did not have any chest discomfort. He denies any fever or chills. Review of Systems Constitutional: Constitutional: Denies chills, Reports fatigue and Denies fever(s) ENT: Reports other (Severe jaw pain that has improved) Cardiovascular: Cardiovascular: Denies chest pain, Denies palpitations and Reports dyspnea on exertion Respiratory: Respiratory: Denies chest congestion and Reports dyspnea on exertion Gastrointestinal: Gastrointestinal: Reports no additional gastrointestinal complaints Genitourinary: Genitourinary: Reports no additional male genitourinary complaints Neurologic: Reports system reviewed and no additional complaints, except as documented Psychiatric: Psychiatric: Reports no additional psychiatric complaints Endocrine: Endocrine: Reports no additional endocrine complaints, Reports fatigue and Denies palpitations Hematologic/Lymphatic: Hematologic/Lymphatic: Reports no additional hematologic/lymphatic complaints [facility] Past Medical History Medical History (Updated 10/20/20 @ 11:05 by Rodger Diaz MD) Alcohol abuse CAD (coronary artery disease) COPD (chronic obstructive pulmonary disease) History of ischemic cardiomyopathy Hypercholesteremia Myocardial infarction Paroxysmal atrial fibrillation Tobacco abuse Surgical History Surgical History (Updated 10/20/20 @ 11:05 by Rodger Diaz MD) H/O heart bypass surgery Social History Social History Alcohol intake: current Alcohol intake frequency: 3 or more drinks per day Alcohol type: hard liquor Smoking Status: Current every day smoker Tobacco Type: Cigarette Use of substances other than those prescribed or required for medical reasons: No Advance Directives: No Advance Directives Information Provided: Yes Meds Allergies Allergy/AdvReac Type Severity Reaction Status Date / Time No Known Allergies Allergy Unverified 06/20/20 14:56 [No Known Allergies*] Home Medications Medication Instructions Recorded Confirmed Type albuterol sulfate 90 mcg/actuation 2 puff INHALATION Q6H PRN 08/12/20 10/19/20 History aerosol inhaler aspirin 81 mg tablet,delayed 81 mg PO DAILY 08/12/20 10/19/20 History release atorvastatin 20 mg tablet 20 mg PO DAILY 08/12/20 10/19/20 History folic acid 1 mg tablet 1 mg PO DAILY 08/12/20 10/19/20 History metoprolol tartrate 75 mg tablet 75 mg PO BID 08/12/20 10/19/20 History multivitamin 1 tab PO DAILY 08/12/20 10/19/20 History tiotropium bromide 18 mcg capsule 1 cap INHALATION DAILY 08/12/20 10/19/20 History with inhalation device vitamin B complex 1 tab PO DAILY 08/12/20 10/19/20 History Vitamin B-100 100 mg PO DAILY 10/19/20 10/19/20 History Physical Exam Vital Signs: Vital Signs: Last Vital Signs Temp 97.4 F 10/19/20 21:41 Pulse 90 10/20/20 10:07 Resp 18 10/20/20 07:52 BP 144/78 H 10/20/20 10:07 Pulse Ox 95 10/20/20 07:52 Body Mass Index 19.9 Const: General: cooperative, comfortable, alert, awake and acute distress mild and respiratory Nutritional Appearance: malnourished and underweight Orientation/consciousness: patient oriented x3 HENMT: Head: Yes normocephalic and Yes atraumatic Neck: Neck: Yes trachea midline, Yes supple and Yes no JVD Chest: Chest palpation & inspection: normal inspection of the chest Resp: Effort & Inspection: normal respiratory effort Auscultation: no rhonchi and diminished lung sounds Cardio: Jugular venous distension: no JVD Palpation: normal PMI Rate: regular rate Rhythm: regular rhythm Heart sounds: S1 normal heart sound present, S2 normal heart sound present and Other heart sounds present (Well-healed sternotomy scar) Skin: General skin exam: no rashes or lesions noted and dry skin Neuro: General: patient oriented x3 and no focal motor deficits Extrem: General: Yes no clubbing, cyanosis or edema Psych: Appearance: grossly normal Results Labs and Meds Result diagrams: 10/19/20 15:04 10/20/20 07:17 Lab results: Laboratory Results - last 24 hr 10/19/20 10/19/20 10/19/20 15:03 15:03 15:03 WBC RBC Hgb Hct MCV MCH MCHC RDW Plt Count MPV Immature Gran % (Auto) Neut % (Auto) Lymph % (Auto) [place] % (Auto) Eos % (Auto) Baso % (Auto) Lymph # (Auto) [place] # (Auto) Eos # (Auto) Baso # (Auto) Abs Immat Gran (auto) Absolute Neuts (auto) Absolute Nucleated RBC Nucleated RBC % (auto) PT INR D-Dimer Sodium 141 Potassium 4.2 Chloride 98 Carbon Dioxide 24 Anion Gap 23 H BUN 18 H D Creatinine 0.87 Estim Creat Clear Calc 74.2 Estimated GFR > 60 Random Glucose 78 Lactic Acid Calcium 9.2 Magnesium 1.5 L Total Bilirubin 1.1 H Direct Bilirubin 0.7 H AST 13 D ALT 6 Alkaline Phosphatase 110 Troponin I High Sens Total Protein 7.6 Albumin 3.9 Triglycerides Cholesterol LDL Cholesterol, Calc HDL Cholesterol TSH 1.26 Ethyl Alcohol < 10 Coronavirus (PCR) NEGATIVE Influenza Type A (PCR) NEGATIVE Influenza Type B (PCR) NEGATIVE RSV RNA Qual (PCR) NEGATIVE 10/19/20 10/19/20 10/19/20 15:04 15:04 15:04 WBC 13.8 H RBC 4.15 L Hgb 12.2 L Hct 37.8 L MCV 91.1 MCH 29.4 MCHC 32.3 RDW 17.0 H Plt Count 289 MPV 10.2 Immature Gran % (Auto) 0.3 Neut % (Auto) 79.2 H Lymph % (Auto) 9.[address] [place] % (Auto) 10.3 Eos % (Auto) 0.1 Baso % (Auto) 0.5 Lymph # (Auto) 1.3 [place] # (Auto) 1.4 H Eos # (Auto) 0.0 Baso # (Auto) 0.1 Abs Immat Gran (auto) 0.04 H Absolute Neuts (auto) 10.9 H Absolute Nucleated RBC 0.000 Nucleated RBC % (auto) 0.0 PT 16.2 H INR 1.4 H D-Dimer 632 Sodium Potassium Chloride Carbon Dioxide Anion Gap BUN Creatinine Estim Creat Clear Calc Estimated GFR Random Glucose Lactic Acid Calcium Magnesium Total Bilirubin Direct Bilirubin AST ALT Alkaline Phosphatase Troponin I High Sens 21.8 Total Protein Albumin Triglycerides Cholesterol LDL Cholesterol, Calc HDL Cholesterol TSH Ethyl Alcohol Coronavirus (PCR) Influenza Type A (PCR) Influenza Type B (PCR) RSV RNA Qual (PCR) 10/19/20 10/20/20 19:17 07:17 WBC RBC Hgb Hct MCV MCH MCHC RDW Plt Count MPV Immature Gran % (Auto) Neut % (Auto) Lymph % (Auto) [place] % (Auto) Eos % (Auto) Baso % (Auto) Lymph # (Auto) [place] # (Auto) Eos # (Auto) Baso # (Auto) Abs Immat Gran (auto) Absolute Neuts (auto) Absolute Nucleated RBC Nucleated RBC % (auto) PT INR D-Dimer Sodium 142 Potassium 3.9 Chloride 105 Carbon Dioxide 26 Anion Gap 15 BUN 19 H Creatinine 0.73 Estim Creat Clear Calc 88.5 Estimated GFR > 60 Random Glucose 149 H D Lactic Acid 1.0 Calcium 8.4 D Magnesium 2.0 Total Bilirubin Direct Bilirubin AST ALT Alkaline Phosphatase Troponin I High Sens Total Protein Albumin Triglycerides 68 Cholesterol 133 LDL Cholesterol, Calc 81 HDL Cholesterol 39 D TSH Ethyl Alcohol Coronavirus (PCR) Influenza Type A (PCR) Influenza Type B (PCR) RSV RNA Qual (PCR) First EKG shows atrial fibrillation rapid ventricular response with ST T wave changes most likely rate-related ischemia Second EKG shows normal sinus rhythm with LVH with repolarization abnormality Imaging Radiologist's impression: Impressions Chest X-Ray 10/19/20 14:26 IMPRESSION: Well-inflated lungs. No evidence for acute disease in the chest. Assessment and Plan (1) Paroxysmal atrial fibrillation: Status: Acute Paroxysmal atrial fibrillation, patient without any significant symptoms related to the same. Most likely caused by alcohol use as well as possible infection in his jaw/throat. Continue treat from medical perspective for is oral infection. Will start him on Multaq 400 mg b.i.d. to reduce recurrent atrial fibrillation given his significant ischemic changes on the EKG. His LV ejection fraction is normal and is not in overt heart failure at this point time. He is also candidate for oral anticoagulation therapy, however is at high risk of bleeding due to his continues alcohol use. He declines to stop using alcohol. Therefore would not put him on oral anticoagulation therapy at this point time. Repeat EKG tomorrow on Multaq. If from cardiac perspective remains in sinus rhythm, can discharge from cardiac perspective with follow-up with Dr. Prado (2) CAD (coronary artery disease): Status: Acute Coronary artery disease with remote coronary artery bypass grafting. No symptoms of angina at this time. His EKG did show ischemic changes with elevated heart rate. Will follow up with Dr. Prado as outpatient. Continue rhythm control approach. Continue low-dose aspirin therapy. Continue high-intensity statin therapy should uptitrate atorvastatin to 40 mg daily to target goal LDL less than 60 mg/dL. Blood pressure is well optimized. Complete smoking cessation is advised. (3) Alcohol abuse: Status: Acute History of LV alcohol use that complicates his medical therapy. Cannot use oral anticoagulation therapy due to the same. Discussed with him were risk of stroke. He says he would take his chances. Will sign of the case. Thank you for allowing us to partake in his care
--- NOTE | 2020-10-20 11:11 | HO.PM.IMPN ---
Subjective Subjective Date of Service: 10/20/20 Interval History: Patient admitted for shortness of breath and jaw pain, patient shortness of breath and jaw pain are better, sore throat has also improved, overnight issues, no tremors. Review of Systems General no headache, no dizziness, no fever chills. CVS no chest pain, no palpitation. Respiratory no cough, no shortness of breath Gastrointestinal no nausea, no vomiting, no abdominal pain Physical Exam Vital Signs: Vital Signs: Last Vital Signs Temp 97.4 F 10/19/20 21:41 Pulse 90 10/20/20 10:07 Resp 18 10/20/20 07:52 BP 144/78 H 10/20/20 10:07 Pulse Ox 95 10/20/20 07:52 Body Mass Index 19.9 General patient resting comfortably in no acute distress. Neck supple no JVD. CVS regular rate rhythm, Respiratory lungs clear to auscultation, no respiratory distress Gastrointestinal abdomen soft, nontender, bowel sounds audible , no rigidity. Extremities no clubbing cyanosis or edema. Neuro nonfocal , no tremor Oral mucosa moist, lower gums no abscess, redness of uvula improving. Skin no rash Objective Data Current Medications Generic Name Dose Route Start Last Admin Trade Name Freq PRN Reason Stop Dose Admin Acetaminophen 650 mg 10/19/20 16:43 Acetaminophen 325 Mg Tablet PO Q6H PRN PAIN Albuterol Sulfate 2 puff 10/19/20 16:48 Albuterol Sulfate 90 Mcg 8 Gm Inhaler INHALE ONCE PRN Shortness of Breath Amoxicillin 500 mg 10/19/20 21:00 10/20/20 10:08 Amoxicillin 500 Mg Capsule PO 500 mg TID JASPAL Administration Aspirin 81 mg 10/20/20 09:00 10/20/20 10:09 Aspirin Enteric Coated 81 Mg Tablet. PO 81 mg DAILY JASPAL Administration Atorvastatin Calcium 20 mg 10/20/20 09:00 10/20/20 10:08 Atorvastatin Calcium 20 Mg Tablet PO 20 mg DAILY JASPAL Administration Benzocaine 1 lozenge 10/19/20 16:44 Throat Lozenge, Medicated Lozenge MUCOUS MEM Q2H PRN sore throat Clopidogrel Bisulfate 75 mg 10/20/20 09:00 10/20/20 10:08 Clopidogrel Bisulfate 75 Mg Tablet PO 75 mg DAILY JASPAL Administration Enoxaparin Sodium 40 mg 10/19/20 16:45 10/19/20 18:12 Enoxaparin Sodium 40 Mg/0.4 Ml Syringe SUBCUT 40 mg Q24H JASPAL Administration Folic Acid 1 mg 10/20/20 09:00 10/20/20 10:08 Folic Acid 1 Mg Tablet PO 1 mg DAILY [facility] Administration Lidocaine/Diphenhydr/Alum/Mg/Simeth 10 ml 10/19/20 18:00 10/20/20 06:01 Mag&Al/Sim/Diphenhyd/Lidocaine 10 Ml Oral.Susp PO Not Given Q6H [facility] Protocol Medication 1 each 10/20/20 09:00 No Benzodiazepines MISCELLANE DAILY [facility] Metoprolol Tartrate 75 mg 10/20/20 09:00 10/20/20 10:07 Metoprolol Tartrate 25 Mg Tablet PO 75 mg BID [facility] Administration Protocol Multivitamins/Vitamin C 1 tab 10/20/20 09:00 10/20/20 10:09 Multivitamin Tablet PO 1 tab DAILY [facility] Administration Ondansetron HCl 4 mg 10/19/20 16:43 Ondansetron Hcl 4 Mg/2 Ml Vial IVPUSH Q8H PRN Nausea Phenobarbital 45 mg 10/20/20 09:00 10/20/20 10:12 Phenobarbital 15 Mg Tablet PO 10/21/20 21:01 Not Given BID [facility] Phenobarbital 30 mg 10/22/20 09:00 Phenobarbital 30 Mg Tablet PO 10/23/20 21:01 BID [facility] Phenobarbital 15 mg 10/24/20 09:00 Phenobarbital 15 Mg Tablet PO 10/25/20 09:01 DAILY [facility] Tiotropium [place] 1 puff 10/20/20 09:00 10/20/20 09:17 Tiotropium [place] 18 Mcg Cap.W.Dev INHALE Not Given RDAILY [facility] Labs CBC & Chem 7: 10/19/20 15:04 10/20/20 07:17 Assessment and Plan (1) Paroxysmal atrial fibrillation: Status: Acute (2) CAD (coronary artery disease): Status: Acute (3) Tobacco abuse: Status: Acute (4) Alcohol abuse: Status: Acute (5) Myocardial infarction: Status: Acute (6) Familial hypercholesteremia: Status: Acute (7) COPD (chronic obstructive pulmonary disease): Status: Acute Assessment and Plan: 65-year-old gentleman with known history of coronary artery disease, statuspost coronary artery bypass graft, presented to [facility] due toshortness of breath and jaw pain, will be admitted to medical floor with adiagnosis of new-onset atrial fibrillation. 1. Atrial fibrillation with rapid ventricular rate. No recurrent symptoms since admit, patient remains in normal sinus rhythm, paroxysmal atrial fibrillation likely related to alcohol use patient seen by Cardiology they recommended Multaq 400 mg b.i.d. to reduce recurrent AFib given significant ischemic changes on EKG, due to high risk of bleeding due to his continues alcohol use anticoagulation is not prescribed TSH normal, troponin flat.wean O2. 2. Jaw pain. Less likely due to coronary artery disease since pain is constant, with sore throat, likely stomatitis. Jaw pain and sore throat improving continue Magic mouthwash and Cepacol lozenges. Continue amoxicillin, WBC normalized, no fevers. 3. Coronary artery disease, status post coronary artery bypass graft, no current chest pain. Troponins are flat. EKG showed ischemic changes likely rate-related outpatient follow-up with Dr. Prado His primary nurse practical,Continue home dose of aspirin, Lipitor, and metoprolol. LDL 81 total cholesterol 133 Cardio recommend LDL less than 60 will increase dose of Lipitor to 40 4. Tobacco use disorder. Counseling done. Patient declined nicotine patch, strongly recommend to abstain from smoking. 5. History of alcohol abuse with high risk for withdrawal. Continue phenobarb protocol, thiamine, folic acid, CARE team consultation prior to discharge. 6. Hypomagnesemia, likely due to poor nutrition. Repeat magnesium normalized 7. Code status: The patient wishes to be a full code. 8. Deep vein thrombosis prophylaxis. The patient will be placed on Lovenox. 9. Malnutrition. BMI of 19.9, likely due to poor nutrition with alcohol abuse. add Ensure supplements.
[2020-10-20] MEDS: Dronedarone HCl 400 MG TABLET PO ×2 (11:55→20:07)
[2020-10-20] MEDS: Mag&Al/Sim/Diphenhyd/Lidocaine 10 ML ORAL.SUSP PO ×3 (13:13→23:29)
[2020-10-20] MEDS: Enoxaparin Sodium 40 MG/0.4 ML SYRINGE SUBCUT (15:54)
[2020-10-20] MEDS: PHENobarbitaL 15 MG TABLET 45 MG PO (20:08)
[2020-10-21] VITALS (12 sets, daily range): BP systolic 95–140; BP diastolic 60–86; PULSE 62–122; RESP 15–20; TEMP 36.1–36.9; O2SAT 90–98
[2020-10-21] MEDS: Metoprolol Tartrate 25 MG TABLET 75 MG PO ×2 (08:47→21:00)
[2020-10-21] MEDS: Multivitamin TABLET 1 TAB PO (08:47)
[2020-10-21] MEDS: Atorvastatin Calcium 20 MG TABLET PO (08:48)
[2020-10-21] MEDS: PHENobarbitaL 15 MG TABLET 45 MG PO ×2 (08:48→21:00)
[2020-10-21] MEDS: Dronedarone HCl 400 MG TABLET PO ×2 (08:48→21:00)
[2020-10-21] MEDS: Aspirin Enteric Coated 81 MG TABLET.DR PO (08:48)
[2020-10-21] MEDS: Clopidogrel Bisulfate 75 MG TABLET PO (08:48)
[2020-10-21] MEDS: Folic Acid 1 MG TABLET PO (08:48)
[2020-10-21] MEDS: Amoxicillin 500 MG CAPSULE PO ×3 (08:48→21:00)
--- NOTE | 2020-10-21 09:01 | PC.NURSE ---
this rn spoke with dr. jaramillo (hosp) pt hr 80-146. hr went up to 146 when pt sat up. pt is in a-fib on monitor with occassional pvc's. pt appears asymptomatic. ciwa scale negative at this time.
--- NOTE | 2020-10-21 10:51 | PC.NURSE ---
nurse to nurse given to ben (rn), pt's hr 108-128. ben is aware. pt was med earlier with b/p meds. dr. jaramillo (hosp)is also aware.
[2020-10-21] MEDS: Mag&Al/Sim/Diphenhyd/Lidocaine 10 ML ORAL.SUSP PO ×2 (11:25→18:28)
[2020-10-21] MEDS: Throat Lozenge, Medicated LOZENGE 1 LOZENGE MUCOUS MEM (11:27)
--- NOTE | 2020-10-21 13:17 | MHC.CM.PN ---
met with pt who explins that he lives with multiple family memebers he does not anticapate the need for services when he is dcd and will have his own transportaion home
--- NOTE | 2020-10-21 13:56 | P.PNIM_ITS ---
Subjective Subjective Date of Service: 10/21/20 Interval History: jaw pain Cardiovascular Cardiovascular: Reports no additional cardiovascular complaints Respiratory Respiratory: Reports no additional respiratory complaints Physical Exam Vital Signs: Vital Signs: Last Vital Signs Temp 96.9 F 10/21/20 11:16 Pulse 75 10/21/20 11:16 Resp 20 10/21/20 11:16 BP 138/86 10/21/20 11:32 Pulse Ox 93 10/21/20 11:16 Body Mass Index 19.9 General: AO X 3, no acute distress Resp: CTA bilateral CVS: S1,S2,irregular GI: soft, non tender, non distended Neuro: motor grossly intact Psych: appropriate affect Objective Data Current Medications Generic Name Dose Route Start Last Admin Trade Name Freq PRN Reason Stop Dose Admin Acetaminophen 650 mg 10/19/20 16:43 Acetaminophen 325 Mg Tablet PO Q6H PRN PAIN Albuterol Sulfate 2 puff 10/19/20 16:48 Albuterol Sulfate 90 Mcg 8 Gm Inhaler INHALE ONCE PRN Shortness of Breath Amoxicillin 500 mg 10/19/20 21:00 10/21/20 08:48 Amoxicillin 500 Mg Capsule PO 500 mg TID JASPAL Administration Aspirin 81 mg 10/20/20 09:00 10/21/20 08:48 Aspirin Enteric Coated 81 Mg Tablet.Dr PO 81 mg DAILY JASPAL Administration Atorvastatin Calcium 20 mg 10/20/20 09:00 10/21/20 08:48 Atorvastatin Calcium 20 Mg Tablet PO 20 mg DAILY JASPAL Administration Benzocaine 1 lozenge 10/19/20 16:44 10/21/20 11:27 Throat Lozenge, Medicated Lozenge MUCOUS MEM 1 lozenge Q2H PRN Administration sore throat Clopidogrel Bisulfate 75 mg 10/20/20 09:00 10/21/20 08:48 Clopidogrel Bisulfate 75 Mg Tablet PO 75 mg DAILY JASPAL Administration Dronedarone 400 mg 10/20/20 11:15 10/21/20 08:48 Dronedarone Hcl 400 Mg Tablet PO 400 mg BID JASPAL Administration Enoxaparin Sodium 40 mg 10/19/20 16:45 10/20/20 15:54 Enoxaparin Sodium 40 Mg/0.4 Ml Syringe SUBCUT 40 mg Q24H JASPAL Administration Folic Acid 1 mg 10/20/20 09:00 10/21/20 08:48 Folic Acid 1 Mg Tablet PO 1 mg DAILY [facility] Administration Lidocaine/Diphenhydr/Alum/Mg/Simeth 10 ml 10/19/20 18:00 10/21/20 11:25 Mag&Al/Sim/Diphenhyd/Lidocaine 10 Ml Oral.Susp PO 10 ml Q6H JASPAL Administration Protocol Medication 1 each 10/20/20 09:00 No Benzodiazepines MISCELLANE DAILY [facility] Metoprolol Tartrate 75 mg 10/20/20 09:00 10/21/20 08:47 Metoprolol Tartrate 25 Mg Tablet PO 75 mg BID JASPAL Administration Protocol Multivitamins/Vitamin C 1 tab 10/20/20 09:00 10/21/20 08:47 Multivitamin Tablet PO 1 tab DAILY [facility]ASP[facility] Administration Ondansetron HCl 4 mg 10/19/20 16:43 Ondansetron Hcl 4 Mg/2 Ml Vial IVPUSH Q8H PRN Nausea Phenobarbital 45 mg 10/20/20 09:00 10/21/20 08:48 Phenobarbital 15 Mg Tablet PO 10/21/20 21:01 45 mg BID JASPAL Administration Phenobarbital 30 mg 10/22/20 09:00 Phenobarbital 30 Mg Tablet PO 10/23/20 21:01 BID JASPAL Phenobarbital 15 mg 10/24/20 09:00 Phenobarbital 15 Mg Tablet PO 10/25/20 09:01 DAILY [facility] Tiotropium [place] 1 puff 10/20/20 09:00 10/21/20 07:17 Tiotropium [place] 18 Mcg Cap.W.Dev INHALE Not Given RDAILY [facility] Labs CBC & Chem 7: 10/19/20 15:04 10/20/20 07:17 Assessment and Plan (1) Paroxysmal atrial fibrillation: Status: Acute (2) CAD (coronary artery disease): Status: Acute (3) Tobacco abuse: Status: Acute (4) Alcohol abuse: Status: Acute (5) Myocardial infarction: Status: Acute (6) Familial hypercholesteremia: Status: Acute (7) COPD (chronic obstructive pulmonary disease): Status: Acute Assessment and Plan: 65-year-old gentleman with known history of coronary artery disease, statuspost coronary artery bypass graft, [facility] due toshortness of breath and jaw pain, admitted to medical floor with a diagnosis of new-onset atrial fibrillation. paroxysmal Atrial fibrillation with rapid ventricular rate. has been in and out of afib today, currently afib around 120. continue multaq, follow up cardio, had recent echo aug 2020 no AC due to continued etoh use, continue asa CAD asa, statin jaw pain amoxil ETOH dependence with withdrawl phenobarb
[2020-10-21] MEDS: Enoxaparin Sodium 40 MG/0.4 ML SYRINGE SUBCUT (16:04)
[2020-10-22] VITALS (10 sets, daily range): BP systolic 122–140; BP diastolic 70–86; PULSE 63–82; RESP 16–20; TEMP 36.2–36.6; O2SAT 92–99
[2020-10-22 06:56] LABS: Anion Gap 14 (12-20); Blood Urea Nitrogen 14 mg/dL (9-16); Calcium 7.9 mg/dL (8.4-10.2); Carbon Dioxide 25 mmol/L (22-29); Chloride 102 mmol/L (96-108); Creatinine Clr Calc Pharmacy 93.6; Estimated Glomerular Filt Rate > 60; Glucose Fasting 83 mg/dL (60-99); Magnesium 1.5 mg/dL (1.6-2.6); Potassium 3.5 mmol/l (3.3-5.1); Sodium 137 mmol/L (135-145)
[2020-10-22] MEDS: Amoxicillin 500 MG CAPSULE PO ×3 (09:08→21:35)
[2020-10-22] MEDS: Multivitamin TABLET 1 TAB PO (09:09)
[2020-10-22] MEDS: Aspirin Enteric Coated 81 MG TABLET.DR PO (09:09)
[2020-10-22] MEDS: Folic Acid 1 MG TABLET PO (09:09)
[2020-10-22] MEDS: PHENobarbitaL 30 MG TABLET PO ×2 (09:09→21:35)
[2020-10-22] MEDS: Clopidogrel Bisulfate 75 MG TABLET PO (09:09)
[2020-10-22] MEDS: Metoprolol Tartrate 25 MG TABLET 75 MG PO (09:09)
[2020-10-22] MEDS: Magnesium Oxide 400 MG TABLET 800 MG PO ×2 (09:09→16:34)
[2020-10-22] MEDS: Atorvastatin Calcium 20 MG TABLET PO (09:09)
[2020-10-22] MEDS: Dronedarone HCl 400 MG TABLET PO ×2 (09:09→21:35)
--- NOTE | 2020-10-22 09:11 | P.CDIC_ITS ---
CDI Concurrent Query Service Date: 10/22/20 Documentation Clarification: Please clarify if you are treating a proba ble/suspected/likely or confirmed: Mild Protein Calorie Malnutrition Moderate Protein Calorie Malnutrition Severe Protein Calorie Malnutrition Provider Response: Moderate Protein-Calorie Malnutrition PLEASE DO NOT DELETE/MODIFY EXISTING CONTENT Additional information is needed in order to code to the highest accuracy and appropriate Severity of Illness (SOI). Please clarify the information noted below in your progress notes and discharge summary. Risk Factors/Clinical Indicators/Treatments 65 year old male admitted with Paroxysmal Atrial Fibrillation with rapid ventricular response. HT. 5'9, WT. 61.235 Kg BMI 19.9 Total protein 7.6, Albumin 3.9 Per H&P: cachectic looking Per MD progress note 10/19/20: Malnutrition BMI 19.9 likely due to poor nutrition and Alcohol Abuse. Add Ensure supplement CDS: Ghazal Rbuin RN Contact Number: [phone] Please Review the information above and exercise your independent professional judgment in responding to the query. If you concur, pleas document in the PROGRESS NOTES and DISCHARGE SUMMARY. If you do not agree with the query, please document in the query above. THIS QUERY IS PART OF THE PERMANENT MEDICAL RECORD
--- NOTE | 2020-10-22 11:13 | PM.PNCARD ---
Subjective Subjective Date of Service: 10/22/20 Interval history: Asked to follow-up regarding atrial fibrillation. He states that he feels okay. No specific complaints from cardiac. Review of Systems Review of Systems Yes all other systems are reviewed and are negative Cardiovascular: Reports as per HPI, Reports no additional cardiovascular complaints, Denies acrocyanosis, Denies cool extremities, Denies painful fingertips, Denies chest pain, Denies chest pain at rest, Denies diaphoresis, Denies syncope, Denies irregular heart rhythm, Denies claudication, Denies leg edema, Denies lightheadedness, Denies palpitations and Denies dyspnea Respiratory: Denies dyspnea Reports system reviewed and no additional complaints, except as documented and Denies syncope Endocrine: Denies palpitations Physical Exam Vital Signs: Last Vital Signs Temp 97.2 F 10/22/20 07:34 Pulse 76 10/22/20 09:09 Resp 20 10/22/20 07:34 BP 135/85 10/22/20 09:09 Pulse Ox 95 10/22/20 07:34 Body Mass Index 19.9 Const General: cooperative, comfortable and no acute distress Orientation/consciousness: patient oriented x3 HENOK Other: Unremarkable Neck Neck: Yes normal visual inspection Chest Chest palpation & inspection: normal inspection of the chest Resp Auscultation: clear to auscultation bilaterally, no crackles and no wheezes Cardio Jugular venous distension: no JVD Palpation: normal PMI Heart sounds: S1 normal heart sound present, S2 normal heart sound present, no gallops, no murmurs and no rubs GI Palpation (GI): Soft to palpation Back/Spine/Pelvis Other: unremarkable Skin General skin exam: no rashes or lesions noted Neuro General: patient oriented x3 Extrem General: Yes no clubbing, cyanosis or edema Psych Mental Status: mental status grossly normal Results Labs and Meds Result diagrams: 10/19/20 15:04 10/22/20 06:15 Lab results: Laboratory Results - last 24 hr 10/22/20 06:15 Sodium 137 Potassium 3.5 Chloride 102 Carbon Dioxide 25 Anion Gap 14 BUN 14 Creatinine 0.69 Estim Creat Clear Calc 93.6 Estimated GFR > 60 Fasting Glucose 83 Calcium 7.9 L Magnesium 1.5 L Progress Note: A&P Assessment and plan (1) Paroxysmal atrial fibrillation: Status: Acute (2) CAD (coronary artery disease): Status: Acute (3) Status post aorto-coronary artery bypass graft: Status: Acute (4) Alcohol abuse: Status: Acute (5) Tobacco abuse: Status: Acute Assessment and Plan: Patient is going back and forth atrial fibrillation with rapid rate/sinus rhythm. He is already on beta blockers and Multaq. We will go up on the dose of beta-blockers. If that still does not help, then possibly amiodarone. His alcohol issues/withdrawal is likely playing a role in this. Also not a good anticoagulation candidate because of the same reason. Fall Risk Details Current Medications: Current Medications Generic Name Dose Route Start Last Admin Trade Name Freq PRN Reason Stop Dose Admin Acetaminophen 650 mg 10/19/20 16:43 Acetaminophen 325 Mg Tablet PO Q6H PRN PAIN Albuterol Sulfate 2 puff 10/19/20 16:48 Albuterol Sulfate 90 Mcg 8 Gm Inhaler INHALE ONCE PRN Shortness of Breath Amoxicillin 500 mg 10/19/20 21:00 10/22/20 09:08 Amoxicillin 500 Mg Capsule PO 500 mg TID JASPAL Administration Aspirin 81 mg 10/20/20 09:00 10/22/20 09:09 Aspirin Enteric Coated 81 Mg Tablet. PO 81 mg DAILY JASPAL Administration Atorvastatin Calcium 20 mg 10/20/20 09:00 10/22/20 09:09 Atorvastatin Calcium 20 Mg Tablet PO 20 mg DAILY JASPAL Administration Benzocaine 1 lozenge 10/19/20 16:44 10/21/20 11:27 Throat Lozenge, Medicated Lozenge MUCOUS MEM 1 lozenge Q2H PRN Administration sore throat Clopidogrel Bisulfate 75 mg 10/20/20 09:00 10/22/20 09:09 Clopidogrel Bisulfate 75 Mg Tablet PO 75 mg DAILY JASPAL Administration Dronedarone 400 mg 10/20/20 11:15 10/22/20 09:09 Dronedarone Hcl 400 Mg Tablet PO 400 mg BID JASPAL Administration Enoxaparin Sodium 40 mg 10/19/20 16:45 10/21/20 16:04 Enoxaparin Sodium 40 Mg/0.4 Ml Syringe SUBCUT 40 mg Q24H JASPAL Administration Folic Acid 1 mg 10/20/20 09:00 10/22/20 09:09 Folic Acid 1 Mg Tablet PO 1 mg DAILY JASPAL Administration Lidocaine/Diphenhydr/Alum/Mg/Simeth 10 ml 10/19/20 18:00 10/22/20 06:45 Mag&Al/Sim/Diphenhyd/Lidocaine 10 Ml Oral.Susp PO Not Given Q6H [facility] Protocol Magnesium Oxide 800 mg 10/22/20 08:30 10/22/20 09:09 Magnesium Oxide 400 Mg Tablet PO 10/22/20 17:31 800 mg BIDPC [facility] Administration Medication 1 each 10/20/20 09:00 No Benzodiazepines MISCELLANE DAILY [facility] Metoprolol Tartrate 75 mg 10/20/20 09:00 10/22/20 09:09 Metoprolol Tartrate 25 Mg Tablet PO 75 mg BID [facility] Administration Protocol Multivitamins/Vitamin C 1 tab 10/20/20 09:00 10/22/20 09:09 Multivitamin Tablet PO 1 tab DAILY [facility] Administration Ondansetron HCl 4 mg 10/19/20 16:43 Ondansetron Hcl 4 Mg/2 Ml Vial IVPUSH Q8H PRN Nausea Phenobarbital 30 mg 10/22/20 09:00 10/22/20 09:09 Phenobarbital 30 Mg Tablet PO 10/23/20 21:01 30 mg BID JASPAL Administration Phenobarbital 15 mg 10/24/20 09:00 Phenobarbital 15 Mg Tablet PO 10/25/20 09:01 DAILY [facility] Tiotropium [place] 1 puff 10/20/20 09:00 10/22/20 11:04 Tiotropium [place] 18 Mcg Cap.W.Dev INHALE Not Given RDAILY [facility] Time Spent With Patient Time: Total time spent is greater than 50% in coordination of care (as documented) at patient's floor/unit and/or counseling patient: Time with patient: less than 15 minutes
--- NOTE | 2020-10-22 11:35 | P.PNIM_ITS ---
Subjective Subjective Date of Service: 10/22/20 Interval History: no compants, still going back in forth in afib Cardiovascular Cardiovascular: Reports no additional cardiovascular complaints Respiratory Respiratory: Reports no additional respiratory complaints Physical Exam Vital Signs: Vital Signs: Last Vital Signs Temp 97.2 F 10/22/20 11:25 Pulse 82 10/22/20 11:25 Resp 20 10/22/20 11:25 BP 139/86 10/22/20 11:25 Pulse Ox 93 10/22/20 11:25 Body Mass Index 19.9 General: AO X 3, no acute distress Resp: CTA bilateral CVS: S1,S2,RRR GI: soft, non tender, non distended Neuro: motor grossly intact Psych: appropriate affect Objective Data Current Medications Generic Name Dose Route Start Last Admin Trade Name Freq PRN Reason Stop Dose Admin Acetaminophen 650 mg 10/19/20 16:43 Acetaminophen 325 Mg Tablet PO Q6H PRN PAIN Albuterol Sulfate 2 puff 10/19/20 16:48 Albuterol Sulfate 90 Mcg 8 Gm Inhaler INHALE ONCE PRN Shortness of Breath Amoxicillin 500 mg 10/19/20 21:00 10/22/20 09:08 Amoxicillin 500 Mg Capsule PO 500 mg TID JASPAL Administration Aspirin 81 mg 10/20/20 09:00 10/22/20 09:09 Aspirin Enteric Coated 81 Mg Tablet.Dr PO 81 mg DAILY JASPAL Administration Atorvastatin Calcium 20 mg 10/20/20 09:00 10/22/20 09:09 Atorvastatin Calcium 20 Mg Tablet PO 20 mg DAILY JASPAL Administration Benzocaine 1 lozenge 10/19/20 16:44 10/21/20 11:27 Throat Lozenge, Medicated Lozenge MUCOUS MEM 1 lozenge Q2H PRN Administration sore throat Clopidogrel Bisulfate 75 mg 10/20/20 09:00 10/22/20 09:09 Clopidogrel Bisulfate 75 Mg Tablet PO 75 mg DAILY JASPAL Administration Dronedarone 400 mg 10/20/20 11:15 10/22/20 09:09 Dronedarone Hcl 400 Mg Tablet PO 400 mg BID JASPAL Administration Enoxaparin Sodium 40 mg 10/19/20 16:45 10/21/20 16:04 Enoxaparin Sodium 40 Mg/0.4 Ml Syringe SUBCUT 40 mg Q24H JASPAL Administration Folic Acid 1 mg 10/20/20 09:00 10/22/20 09:09 Folic Acid 1 Mg Tablet PO 1 mg DAILY [facility] Administration Lidocaine/Diphenhydr/Alum/Mg/Simeth 10 ml 10/19/20 18:00 10/22/20 06:45 Mag&Al/Sim/Diphenhyd/Lidocaine 10 Ml Oral.Susp PO Not Given Q6H [facility] Protocol Magnesium Oxide 800 mg 10/22/20 08:30 10/22/20 09:09 Magnesium Oxide 400 Mg Tablet PO 10/22/20 17:31 800 mg BIDPC [facility] Administration Medication 1 each 10/20/20 09:00 No Benzodiazepines MISCELLANE DAILY [facility] Metoprolol Tartrate 50 mg 10/22/20 11:30 Metoprolol Tartrate 25 Mg Tablet PO Q6H [facility] Protocol Multivitamins/Vitamin C 1 tab 10/20/20 09:00 10/22/20 09:09 Multivitamin Tablet PO 1 tab DAILY [facility] Administration Ondansetron HCl 4 mg 10/19/20 16:43 Ondansetron Hcl 4 Mg/2 Ml Vial IVPUSH Q8H PRN Nausea Phenobarbital 30 mg 10/22/20 09:00 10/22/20 09:09 Phenobarbital 30 Mg Tablet PO 10/23/20 21:01 30 mg BID [facility] Administration Phenobarbital 15 mg 10/24/20 09:00 Phenobarbital 15 Mg Tablet PO 10/25/20 09:01 DAILY [facility] Tiotropium [place] 1 puff 10/20/20 09:00 10/22/20 11:04 Tiotropium [place] 18 Mcg Cap.W.Dev INHALE Not Given RDAILY [facility] Labs CBC & Chem 7: 10/19/20 15:04 10/22/20 06:15 Assessment and Plan (1) Paroxysmal atrial fibrillation: Status: Acute (2) CAD (coronary artery disease): Status: Acute (3) Tobacco abuse: Status: Acute (4) Alcohol abuse: Status: Acute (5) Myocardial infarction: Status: Acute (6) Familial hypercholesteremia: Status: Acute (7) COPD (chronic obstructive pulmonary disease): Status: Acute Assessment and Plan: 65-year-old gentleman with known history of coronary artery disease, statuspost coronary artery bypass graft, [facility] toshortness of breath and jaw pain, admitted to medical floor with a diagnosis of new-onset atrial fibrillation. paroxysmal Atrial fibrillation with rapid ventricular rate. has been in and out of afib, continue multaq, lopressor changed to 50mg q6h, cardio following no AC due to continued etoh use, continue asa CAD asa, statin jaw pain amoxil, o/p dental ETOH dependence with withdrawl phenobarb hyopmagnesemia replace, monitor moderate protein calorie malnutrition improve po intake
--- NOTE | 2020-10-22 11:49 | PC.NURSE ---
Patient ambulated from the bathroom to the bed at 1120. Upon returning to bed he reported shortness of breath. O2 2L applied via NC. Dr. White was notified. At 1150 patient reports improvement with O2 administration.
[2020-10-22] MEDS: Metoprolol Tartrate 25 MG TABLET 50 MG PO ×3 (12:23→23:24)
[2020-10-22] MEDS: Mag&Al/Sim/Diphenhyd/Lidocaine 10 ML ORAL.SUSP PO ×3 (12:24→23:24)
[2020-10-22] MEDS: Enoxaparin Sodium 40 MG/0.4 ML SYRINGE SUBCUT (16:39)
[2020-10-23 03:33] VITALS: BP 121/74; PULSE 65; RESP 18; TEMP 36.2; O2SAT 94
[2020-10-23 06:28] LABS: MANUAL DIFF FLAG NO
[2020-10-23 06:30] VITALS: BP 121/74; PULSE 65
[2020-10-23] MEDS: Metoprolol Tartrate 25 MG TABLET 50 MG PO ×2 (06:30→12:47)
[2020-10-23] MEDS: Mag&Al/Sim/Diphenhyd/Lidocaine 10 ML ORAL.SUSP PO (06:31)
[2020-10-23 06:41] LABS: Basophils Absolute Auto 0.1 X10*3/uL (0.0-0.2); Basophils Percent Auto 0.6 % (0-2); Eosinophils Absolute Auto 0.2 X10*3/uL (0.0-0.4); Eosinophils Percent Auto 2.3 % (0-4); Hematocrit 32.1 % (42-52); Hemoglobin 10.2 g/dl (14.0-18.0); Imm Gran Abs Auto 0.03 X10*3/uL (0.00-0.03); Imm Gran Pct Auto 0.4 % (0.0-0.4); Lymphocytes Absolute Auto 1.4 X10*3/uL (1.2-4.9); Lymphocytes Percent Auto 17.8 % (20-40); Mean Corpuscular HGB Conc 31.8 g/dl (31.0-36.0); Mean Corpuscular Hemoglobin 28.5 pg (27.0-33.0); Mean Corpuscular Volume 89.7 fL (80-98); Mean Platelet Volume 10.7 fL (9.4-12.4); Monocytes Absolute Auto 0.9 X10*3/uL (0.1-1.2); Monocytes Percent Auto 11.2 % (2-11); Neutrophils Absolute Auto 5.2 X10*3/uL (2.0-8.3); Neutrophils Percent Auto 67.7 % (45-73); Platelet Count 242 X10*3/uL (160-400); Red Blood Count 3.58 X10*6/uL (4.60-5.80); Red Cell Distribution Width 16.3 % (11.0-16.0); White Blood Count 7.7 X10*3/uL (4.8-10.8)
[2020-10-23 07:31] LABS: Anion Gap 11 (12-20); Blood Urea Nitrogen 12 mg/dL (9-16); Calcium 8.3 mg/dL (8.4-10.2); Carbon Dioxide 29 mmol/L (22-29); Chloride 102 mmol/L (96-108); Creatinine Clr Calc Pharmacy 97.9; Estimated Glomerular Filt Rate > 60; Glucose Fasting 82 mg/dL (60-99); Magnesium 1.6 mg/dL (1.6-2.6); Potassium 3.6 mmol/l (3.3-5.1); Sodium 138 mmol/L (135-145)
[2020-10-23 08:00] VITALS: BP 141/78; PULSE 72; RESP 20; TEMP 36.4; O2SAT 93
[2020-10-23] MEDS: Multivitamin TABLET 1 TAB PO (08:55)
[2020-10-23] MEDS: Atorvastatin Calcium 20 MG TABLET PO (08:55)
[2020-10-23] MEDS: Folic Acid 1 MG TABLET PO (08:55)
[2020-10-23] MEDS: Dronedarone HCl 400 MG TABLET PO (08:55)
[2020-10-23] MEDS: Aspirin Enteric Coated 81 MG TABLET.DR PO (08:55)
[2020-10-23] MEDS: Clopidogrel Bisulfate 75 MG TABLET PO (08:55)
[2020-10-23] MEDS: PHENobarbitaL 30 MG TABLET PO (08:55)
[2020-10-23] MEDS: Amoxicillin 500 MG CAPSULE PO (08:55)
--- NOTE | 2020-10-23 11:44 | PM.DS ---
DS: Providers Provider Date of Service: 10/23/20 Date of admission: 10/19/20 16:43 Primary care physician: Kym Sebastian MD Consults: 10/19/20 16:43 Consult to Cardiology Routine Consulting Provider: Rodger Diaz Reason for consultation: AFib RVR/coronary artery disease Has provider been notified: No DS: Diagnosis Discharge Diagnosis (1) Paroxysmal atrial fibrillation: Status: Acute (2) CAD (coronary artery disease): Status: Acute (3) Tobacco abuse: Status: Acute (4) Alcohol abuse: Status: Acute (5) Myocardial infarction: Status: Acute (6) Familial hypercholesteremia: Status: Acute (7) COPD (chronic obstructive pulmonary disease): Status: Acute DS: Medications Discharge Medications Home Medications: Home Medications Medication Instructions Recorded Confirmed albuterol sulfate 90 mcg/actuation 2 puff INHALATION Q6H PRN 08/12/20 10/19/20 aerosol inhaler aspirin 81 mg tablet,delayed 81 mg PO DAILY 08/12/20 10/19/20 release atorvastatin 20 mg tablet 20 mg PO DAILY 08/12/20 10/19/20 folic acid 1 mg tablet 1 mg PO DAILY 08/12/20 10/19/20 multivitamin 1 tab PO DAILY 08/12/20 10/19/20 tiotropium bromide 18 mcg capsule 1 cap INHALATION DAILY 08/12/20 10/19/20 with inhalation device vitamin B complex 1 tab PO DAILY 08/12/20 10/19/20 Vitamin B-100 100 mg PO DAILY 10/19/20 10/19/20 Previous Rx's Medication Instructions Recorded clopidogrel 75 mg tablet 75 mg PO DAILY #90 tab 08/19/20 amoxicillin 500 mg PO TID #21 cap 10/23/20 dronedarone [Multaq] 400 mg PO BID #60 tab 10/23/20 metoprolol tartrate [Lopressor] 100 mg PO BID #60 tab 10/23/20 DS: Summary Hospital Course Hospital Course: Patient was admitted for alcohol dependence with withdrawal, new onset atrial fibrillation, dental pain. He was put on amoxicillin and recommended to follow up outpatient with dental. He was given phenobarbital with resolution of his withdrawal symptoms. He was seen by Cardiology who increased his metoprolol tartrate to 50 mg q.6 and he will be discharged on 100 mg b.i.d. and started him on Multaq 400 mg b.i.d. given patient's ongoing alcohol use, risks of anticoagulation were considered to be higher than benefits and patient was not started on anticoagulation. He is on dual antiplatelet. Patient will be discharged home follow-up with Cardiology and dentistry. Time Spent with Patient Time attestation: Total time spent providing and/or coordinating discharge services: Discharge coordination time: Greater than 30 minutes Physical Exam Vital Signs: Vital Signs: Last Vital Signs Temp 97.6 F 10/23/20 08:00 Pulse 72 10/23/20 08:00 Resp 20 10/23/20 08:00 BP 141/78 H 10/23/20 08:00 Pulse Ox 93 10/23/20 08:00 Body Mass Index 19.9 General: AO X 3, no acute distress Resp: CTA bilateral CVS: S1,S2,RRR GI: soft, non tender, non distended Neuro: motor grossly intact Psych: appropriate affect DS: Data Data Completed and Pending Labs on day of discharge: Laboratory Tests 10/19/20 10/19/20 10/19/20 15:03 15:03 15:03 WBC RBC Hgb Hct MCV MCH MCHC RDW Plt Count MPV Immature Gran % (Auto) Neut % (Auto) Lymph % (Auto) [place] % (Auto) Eos % (Auto) Baso % (Auto) Lymph # (Auto) [place] # (Auto) Eos # (Auto) Baso # (Auto) Abs Immat Gran (auto) Absolute Neuts (auto) Absolute Nucleated RBC Nucleated RBC % (auto) PT INR D-Dimer Sodium 141 Potassium 4.2 Chloride 98 Carbon Dioxide 24 Anion Gap 23 H BUN 18 H D Creatinine 0.87 Estim Creat Clear Calc 74.2 Estimated GFR > 60 Random Glucose 78 Fasting Glucose Lactic Acid Calcium 9.2 Magnesium 1.5 L Total Bilirubin 1.1 H Direct Bilirubin 0.7 H AST 13 D ALT 6 Alkaline Phosphatase 110 Troponin I High Sens Total Protein 7.6 Albumin 3.9 Triglycerides Cholesterol LDL Cholesterol, Calc HDL Cholesterol TSH 1.26 Ethyl Alcohol < 10 Coronavirus (PCR) NEGATIVE Influenza Type A (PCR) NEGATIVE Influenza Type B (PCR) NEGATIVE RSV RNA Qual (PCR) NEGATIVE 10/19/20 10/19/20 10/19/20 15:04 15:04 15:04 WBC 13.8 H RBC 4.15 L Hgb 12.2 L Hct 37.8 L MCV 91.1 MCH 29.4 MCHC 32.3 RDW 17.0 H Plt Count 289 MPV 10.2 Immature Gran % (Auto) 0.3 Neut % (Auto) 79.2 H Lymph % (Auto) 9.6 L [place] % (Auto) 10.3 Eos % (Auto) 0.1 Baso % (Auto) 0.5 Lymph # (Auto) 1.3 [place] # (Auto) 1.4 H Eos # (Auto) 0.0 Baso # (Auto) 0.1 Abs Immat Gran (auto) 0.04 H Absolute Neuts (auto) 10.9 H Absolute Nucleated RBC 0.000 Nucleated RBC % (auto) 0.0 PT 16.2 H INR 1.4 H D-Dimer 632 Sodium Potassium Chloride Carbon Dioxide Anion Gap BUN Creatinine Estim Creat Clear Calc Estimated GFR Random Glucose Fasting Glucose Lactic Acid Calcium Magnesium Total Bilirubin Direct Bilirubin AST ALT Alkaline Phosphatase Troponin I High Sens 21.8 Total Protein Albumin Triglycerides Cholesterol LDL Cholesterol, Calc HDL Cholesterol TSH Ethyl Alcohol Coronavirus (PCR) Influenza Type A (PCR) Influenza Type B (PCR) RSV RNA Qual (PCR) 10/19/20 10/20/20 10/22/20 19:17 07:17 06:15 WBC RBC Hgb Hct MCV MCH MCHC RDW Plt Count MPV Immature Gran % (Auto) Neut % (Auto) Lymph % (Auto) [place] % (Auto) Eos % (Auto) Baso % (Auto) Lymph # (Auto) [place] # (Auto) Eos # (Auto) Baso # (Auto) Abs Immat Gran (auto) Absolute Neuts (auto) Absolute Nucleated RBC Nucleated RBC % (auto) PT INR D-Dimer Sodium 142 137 Potassium 3.9 3.5 Chloride 105 102 Carbon Dioxide 26 25 Anion Gap 15 14 BUN 19 H 14 Creatinine 0.73 0.69 Estim Creat Clear Calc 88.5 93.6 Estimated GFR > 60 > 60 Random Glucose 149 H D Fasting Glucose 83 Lactic Acid 1.0 Calcium 8.4 D 7.9 L Magnesium 2.0 1.5 L Total Bilirubin Direct Bilirubin AST ALT Alkaline Phosphatase Troponin I High Sens Total Protein Albumin Triglycerides 68 Cholesterol 133 LDL Cholesterol, Calc 81 HDL Cholesterol 39 D TSH Ethyl Alcohol Coronavirus (PCR) Influenza Type A (PCR) Influenza Type B (PCR) RSV RNA Qual (PCR) 10/23/20 10/23/20 05:42 05:42 WBC 7.7 RBC 3.58 L Hgb 10.2 L Hct 32.1 L MCV 89.7 MCH 28.5 MCHC 31.8 RDW 16.3 H Plt Count 242 MPV 10.7 Immature Gran % (Auto) 0.4 Neut % (Auto) 67.7 Lymph % (Auto) 17.8 L [place] % (Auto) 11.2 H Eos % (Auto) 2.3 Baso % (Auto) 0.6 Lymph # (Auto) 1.4 [place] # (Auto) 0.9 Eos # (Auto) 0.2 Baso # (Auto) 0.1 Abs Immat Gran (auto) 0.03 Absolute Neuts (auto) 5.2 Absolute Nucleated RBC 0.000 Nucleated RBC % (auto) 0.0 PT INR D-Dimer Sodium 138 Potassium 3.6 Chloride 102 Carbon Dioxide 29 Anion Gap 11 L BUN 12 Creatinine 0.66 Estim Creat Clear Calc 97.9 Estimated GFR > 60 Random Glucose Fasting Glucose 82 Lactic Acid Calcium 8.3 L Magnesium 1.6 Total Bilirubin Direct Bilirubin AST ALT Alkaline Phosphatase Troponin I High Sens Total Protein Albumin Triglycerides Cholesterol LDL Cholesterol, Calc HDL Cholesterol TSH Ethyl Alcohol Coronavirus (PCR) Influenza Type A (PCR) Influenza Type B (PCR) RSV RNA Qual (PCR) Discharge Plan Discharge Patient Disposition: Home, Self-Care Referrals: Kym Sebastian MD [Primary Care Provider] - Discharge Medications: New amoxicillin 500 mg Capsule 500 mg PO TID Qty: 21 RF: 0 Multaq 400 mg Tablet 400 mg PO BID Qty: 60 RF: 0 metoprolol tartrate [Lopressor] 100 mg tablet 100 mg PO BID Qty: 60 RF: 0 Continued clopidogrel 75 mg tablet 75 mg PO DAILY Qty: 90 RF: 4 Vitamin B-100 100 mg PO DAILY RF: 0 aspirin 81 mg tablet,delayed release (DR/EC) 81 mg PO DAILY RF: 0 atorvastatin 20 mg tablet 20 mg PO DAILY RF: 0 folic acid 1 mg tablet 1 mg PO DAILY RF: 0 multivitamin Tablet 1 tab PO DAILY RF: 0 albuterol sulfate [ProAir HFA] 90 mcg/actuation HFA aerosol inhaler 2 puff inhalation Q6H PRN (Reason: Wheezing) RF: 0 Spiriva with HandiHaler 18 mcg capsule, w/inhalation device 1 cap inhalation DAILY RF: 0 vitamin B complex [B Complex-Vitamin B12] Tablet 1 tab PO DAILY RF: 0 Discontinued metoprolol tartrate 75 mg tablet 75 mg PO BID RF: 0 Discharge Orders: Discharge Order (Routine); Ordered 10/23/20 Ordered By: Anibal White Activity on Discharge: As tolerated Stand Alone Forms: Patient Portal Discharge page Visit Report Forms: Patient Portal Discharge page Care Plan Goals: recovery Health Concerns: afib, dental pain Plan of Treatment: increase metoprolol to 100mg bid, started multaqw, follow up with dentist and cardiology
[2020-10-23 12:00] VITALS: BP 133/72; PULSE 81; RESP 22; TEMP 36.4; O2SAT 98
--- NOTE | 2020-10-23 12:07 | MHC.CM.PN ---
DC today to home with Family. Male 65 DX AFIB + RVR. No home services required, or ordered. Patients family is providing transportation to home.
[2020-10-23 12:47] VITALS: BP 133/72; PULSE 81
--- NOTE | 2020-10-23 16:13 | PM.PNCARD ---
Subjective Subjective Date of Service: 10/23/20 Interval history: Seen at about 09:30 a.m.. He stated that he was feeling okay without any specific complaints. Review of Systems Review of Systems Yes all other systems are reviewed and are negative Cardiovascular: Reports as per HPI, Reports no additional cardiovascular complaints, Denies chest pain, Denies chest pain at rest, Denies chest pain with activity, Denies syncope, Denies rapid heart rate, Denies pedal edema, Denies edema, Denies leg edema, Denies lightheadedness, Denies dyspnea and Denies dyspnea on exertion Respiratory: Denies dyspnea and Denies dyspnea on exertion Reports system reviewed and no additional complaints, except as documented and Denies syncope Physical Exam Vital Signs: Last Vital Signs Temp 97.6 F 10/23/20 12:00 Pulse 81 10/23/20 12:47 Resp 22 H 10/23/20 12:00 BP 133/72 10/23/20 12:47 Pulse Ox 98 10/23/20 12:00 Body Mass Index 19.9 Const General: cooperative, comfortable and no acute distress Orientation/consciousness: patient oriented x3 HENMT Other: Unremarkable Neck Neck: Yes normal visual inspection Chest Chest palpation & inspection: normal inspection of the chest Resp Auscultation: clear to auscultation bilaterally, no crackles and no wheezes Cardio Jugular venous distension: no JVD Palpation: normal PMI Heart sounds: S1 normal heart sound present, S2 normal heart sound present, no gallops, no murmurs and no rubs GI Palpation (GI): Soft to palpation Back/Spine/Pelvis Other: unremarkable Skin General skin exam: no rashes or lesions noted Neuro General: patient oriented x3 Extrem General: Yes no clubbing, cyanosis or edema Psych Mental Status: mental status grossly normal Results Labs and Meds Result diagrams: 10/23/20 05:42 10/23/20 05:42 Lab results: Laboratory Results - last 24 hr 10/23/20 10/23/20 05:42 05:42 WBC 7.7 RBC 3.58 L Hgb 10.2 L Hct 32.1 L MCV 89.7 MCH 28.5 MCHC 31.8 RDW 16.3 H Plt Count 242 MPV 10.7 Immature Gran % (Auto) 0.4 Neut % (Auto) 67.7 Lymph % (Auto) 17.8 L [place] % (Auto) 11.2 H Eos % (Auto) 2.3 Baso % (Auto) 0.6 Lymph # (Auto) 1.4 [place] # (Auto) 0.9 Eos # (Auto) 0.2 Baso # (Auto) 0.1 Abs Immat Gran (auto) 0.03 Absolute Neuts (auto) 5.2 Absolute Nucleated RBC 0.000 Nucleated RBC % (auto) 0.0 Sodium 138 Potassium 3.6 Chloride 102 Carbon Dioxide 29 Anion Gap 11 L BUN 12 Creatinine 0.66 Estim Creat Clear Calc 97.9 Estimated GFR > 60 Fasting Glucose 82 Calcium 8.3 L Magnesium 1.6 Progress Note: A&P Assessment and plan (1) Paroxysmal atrial fibrillation: Status: Acute (2) CAD (coronary artery disease): Status: Acute (3) Status post aorto-coronary artery bypass graft: Status: Acute (4) Alcohol abuse: Status: Acute (5) Tobacco abuse: Status: Acute Assessment and Plan: He still has episodes of atrial fibrillation but overall seems better than before. Even while in atrial fibrillation, rates are only about 100-110/Min. We can change the metoprolol to 100 mg twice daily. With regard to Multaq, if he is willing to keep office appointments and follow-up then reasonable to continue. On the other hand if he is going to be noncompliant, then may not be a suitable candidate for long-term antiarrhythmics. For the same reason, also not a good candidate for anticoagulation. . Time Spent With Patient Time: Total time spent is greater than 50% in coordination of care (as documented) at patient's floor/unit and/or counseling patient: Time with patient: less than 15 minutes
== END 2020-10-23 13:20 | disposition home or self-care (01) | DRG 201 ==
LOC: HO.ED 15:04 → HO.EDOVER 16:50 → HO.IMC 10-21 07:15 → HO.EDOVER 10-21 07:52 → HO.IMC 10-21 10:31
PROVIDERS: Physician Assistant Medical; Admitting Provider Hospitalist; Emergency Provider Emergency Medicine Emergency Medical Services; PCP Student in an Organized Health Care Education/Training Program; Visit Provider Internal Medicine
DX: I48.0 Paroxysmal atrial fibrillation (principal); E44.0 Moderate protein-calorie malnutrition; E83.42 Hypomagnesemia; Z95.1 Presence of aortocoronary bypass graft; I25.10 Atherosclerotic heart disease of native coronary artery without angina pectoris; E78.5 Hyperlipidemia, unspecified; F10.239 Alcohol dependence with withdrawal, unspecified; F17.210 Nicotine dependence, cigarettes, uncomplicated; K12.1 Other forms of stomatitis; Z68.1 Body mass index [BMI] 19.9 or less, adult; I25.2 Old myocardial infarction; Z71.6 Tobacco abuse counseling; Z79.02 Long term (current) use of antithrombotics/antiplatelets; Z79.82 Long term (current) use of aspirin; Z79.899 Other long term (current) drug therapy
CPT/HCPCS: 0241U; 36415; 71045; 80048; 80053; 80061; 80076; 80320; 83605; 83735; 84443; 84484; 85025; 85379; 85610; 93005; 96365; 96366; 96375; 99285; 99291; J1100; J1650; J2560; J3411; J3475

== ENCOUNTER 2020-11-05 14:21 | Emergency (ER) | payer MEDICAID, SELFPAY ==
[2020-11-05 14:34] VITALS: BP 137/61; BP 170/110; PULSE 64; PULSE 68; RESP 18; TEMP 36.7; O2SAT 100; O2SAT 93; BMI 19.3
--- NOTE | 2020-11-05 14:39 | ECG_ITS ---
Test Reason : SOB Blood Pressure : / mmHG Vent. Rate : 056 BPM Atrial Rate : 056 BPM P-R Int : 178 ms QRS Dur : 088 ms QT Int : 476 ms P-R-T Axes : 077 086 072 degrees QTc Int : 459 ms Sinus bradycardia Otherwise normal ECG When compared with ECG of 19-OCT-2020 15:23, Premature ventricular complexes are no longer Present Premature atrial complexes are no longer Present Vent. rate has decreased BY 34 BPM T wave inversion no longer evident in Inferior leads Referred By: Francine Rodriguez Electronically Signed By:NANCY SUAREZ MD
--- NOTE | 2020-11-05 14:39 | XR_ITS ---
EXAMINATION: XR CHEST CLINICAL INFORMATION: Dyspnea COMPARISON: None TECHNIQUE: Frontal view of the chest was obtained. FINDINGS: The lungs are hyperinflated with bilateral parahilar interstitial/vascular markings but no consolidation seen. Heart size and pulmonary vascularity is normal. There are median sternotomy sutures and mediastinal fran from previous CABG. No gross bony abnormality seen. XR/XR chest 1V IMPRESSION: Increased interstitial markings both lungs likely interstitial pneumonitis or mild pulmonary vascular congestion. Evidence of previous CABG. The heart size is normal.
--- NOTE | 2020-11-05 14:41 | ED.SOB ---
HPI - SOB/Dyspnea General Chief Complaint: Dyspnea Stated Complaint: SUDDEN SOB Time Seen by Provider: 11/05/20 14:37 Source: patient and EMS Mode of arrival: EMS Limitations: other (poor historian) History of Present Illness HPI Narrative: 65 yo male with CAD, COPD though he denied this to me, afib, ETOH use here with abrupt onset shortness of breath while at rest, denies chest pain, no recent URI, called 911 MD elicited complaint: shortness of breath Pertinent past history: COPD Onset (ago): minute(s) (just CLOTH BALER) Timing: constant Severity: severe Exacerbating factors: nothing Relieving factors: oxygen Known history of: COPD Associated symptoms: denies other symptoms Treatment prior to arrival: oxygen Related Data Home Medications Medication Instructions Recorded Confirmed albuterol sulfate 90 mcg/actuation 2 puff INHALATION Q6H PRN 08/12/20 10/19/20 aerosol inhaler aspirin 81 mg tablet,delayed 81 mg PO DAILY 08/12/20 10/19/20 release atorvastatin 20 mg tablet 20 mg PO DAILY 08/12/20 10/19/20 folic acid 1 mg tablet 1 mg PO DAILY 08/12/20 10/19/20 multivitamin 1 tab PO DAILY 08/12/20 10/19/20 tiotropium bromide 18 mcg capsule 1 cap INHALATION DAILY 08/12/20 10/19/20 with inhalation device vitamin B complex 1 tab PO DAILY 08/12/20 10/19/20 Vitamin B-100 100 mg PO DAILY 10/19/20 10/19/20 Previous Rx's Medication Instructions Recorded clopidogrel 75 mg tablet 75 mg PO DAILY #90 tab 08/19/20 amoxicillin 500 mg PO TID #21 cap 10/23/20 dronedarone [Multaq] 400 mg PO BID #60 tab 10/23/20 metoprolol tartrate [Lopressor] 100 mg PO BID #60 tab 10/23/20 Allergies Allergy/AdvReac Type Severity Reaction Status Date / Time No Known Allergies Allergy Verified 11/05/20 14:39 [No Known Allergies*] Review of Systems Review of Systems: Constitutional : No Fever, No Chills ENT/Mouth : No sore throat, No Rhinorrhea, No Swallowing Difficulty Eyes: No Eye Pain, No Swelling, No Redness Cardiovascular : No Chest Pain, positive SOB, No Orthopnea, no Edema Respiratory : No Cough, No Sputum, No Wheezing, positive dyspnea Gastrointestinal : No Nausea, No Vomiting, No Diarrhea, No abdominal Pain, No Hematochezia, No Melena Genitourinary : No Dysuria, No Urinary Frequency, No Hematuria Musculoskeletal : No joint pain, No Myalgias Skin : No Skin Lesions, No rash Neuro : No Weakness, No Numbness, No Dizziness, No Headache Psych : No Anxiety/Panic, No Depression Heme/Lymph: No Bruising, No Lymphadenopathy Endocrine : No Polyuria, No Polydipsia All other systems reviewed and are negative [facility] Past Medical History Attestation statement: The following information was validated with the patient. Source: old records reviewed Medical History Alcohol abuse CAD (coronary artery disease) COPD (chronic obstructive pulmonary disease) History of ischemic cardiomyopathy Hypercholesteremia Myocardial infarction Paroxysmal atrial fibrillation Tobacco abuse Surgical History H/O heart bypass surgery Social History Social History Household Members: Other Housing: House Alcohol intake: current Alcohol intake frequency: 3 or more drinks per day Alcohol type: hard liquor Smoking Status: Current every day smoker Tobacco Type: Cigar Packs Per Day: 1 Cigarettes Per Day: 20.0 Years Smoked: 40 Second Hand Smoke Exposure: Yes Advance Directives: No Advance Directives Information Provided: Yes service: No Physical Exam Vital Signs: Vital Signs: Last Vital Signs Temp 98.1 F 11/05/20 14:34 Pulse 60 11/05/20 14:58 Resp 18 11/05/20 14:34 BP 137/61 11/05/20 14:34 Pulse Ox 100 11/05/20 14:34 Body Mass Index 19.3 Appearance: Alert. Oriented X3. No acute distress. Flat affect, withdrawn, temporal wasting Eyes: Pupils equal, round and reactive to light. ENT: Pharynx normal. Neck: Normal inspection. Neck supple. CVS: Normal heart rate and rhythm. Pulses normal. Respiratory: No respiratory distress. Breath sounds diminished severely Abdomen: Soft and nontender. Skin: Skin warm and dry. Normal skin color. Normal skin turgor. Extremities: No lower extremity edema. No calf ttp Neuro: Oriented X 3. No motor deficit. No sensory deficit. Course Course Course Narrative: patient is not hypoxic, refusing blood work patient is alert and oriented x 3, 96% on RA, he is not hypoxic, he now statse he feels fine and wants to leave, patient states he no longer wants treatment MDM - SOB/Dyspnea MDM Narrative Medical decision making narrative: 65 yo male with HTN, COPD, long standing smoker, CAD s/p CABG comes in with abrupt onset dyspnea while at rest, he is very diminished denies CP - labs, CXR, EKG, ddimer/troponin, IV steroids, neb treatment and COVID swab ordered. dispo per results and findings. Lab Data Labs: Lab Results 11/05/20 Range/Units 14:50 COVID-19 (LYNDA) Negative (Negative) COVID-19 Clin Com See Note ECG Data Attestation: I personally reviewed and interpreted this ECG as follows: ECG interpretation date: 11/05/20 ECG interpretation time: 14:54 Interpretation: Rate: 56 Rhythm: sinus bradycardia [place]: normal Normal P waves. Normal [place]. Normal QRS complex. Poor R wave progression ST T wave : no REGINO qTC: normal prior studies: artifact, no acute ischemia The study has been interpreted contemporaneously by me. . Discharge Plan Discharge Clinical Impression: Acute dyspnea Patient Disposition: Left Against Medical Advice Instructions: Against Medical Advice (ED) Additional Instructions: return to ED for any worsening symptoms or concerns you were offered care in the ED but refused, your oxygen level was 96% Prescriptions: No Action clopidogrel 75 mg tablet 75 mg PO DAILY Qty: 90 RF: 4 Vitamin B-100 100 mg PO DAILY RF: 0 amoxicillin 500 mg Capsule 500 mg PO TID Qty: 21 RF: 0 Multaq 400 mg Tablet 400 mg PO BID Qty: 60 RF: 0 metoprolol tartrate [Lopressor] 100 mg tablet 100 mg PO BID Qty: 60 RF: 0 aspirin 81 mg tablet,delayed release (DR/EC) 81 mg PO DAILY RF: 0 atorvastatin 20 mg tablet 20 mg PO DAILY RF: 0 folic acid 1 mg tablet 1 mg PO DAILY RF: 0 multivitamin Tablet 1 tab PO DAILY RF: 0 albuterol sulfate [ProAir HFA] 90 mcg/actuation HFA aerosol inhaler 2 puff inhalation Q6H PRN (Reason: Wheezing) RF: 0 Spiriva with HandiHaler 18 mcg capsule, w/inhalation device 1 cap inhalation DAILY RF: 0 vitamin B complex [B Complex-Vitamin B12] Tablet 1 tab PO DAILY RF: 0
[2020-11-05] MEDS: Albuterol Sulfate (0.083%) 2.5 MG/3 ML VIAL.NEB 5 MG INHALE (14:55)
[2020-11-05 14:58] VITALS: PULSE 60; O2SAT 98
[2020-11-05 15:17] LABS: COVID-19 Test Negative (Negative); IDNOW Serial# 9DD0AD1C
== END 2020-11-05 15:34 | disposition left against medical advice (07) ==
PROVIDERS: Emergency Provider Emergency Medicine; PCP Student in an Organized Health Care Education/Training Program
DX: R06.00 Dyspnea, unspecified (principal); Z20.822 Contact with and (suspected) exposure to COVID-19; J44.9 Chronic obstructive pulmonary disease, unspecified; I48.0 Paroxysmal atrial fibrillation; F10.10 Alcohol abuse, uncomplicated; I25.2 Old myocardial infarction; F17.210 Nicotine dependence, cigarettes, uncomplicated; Z79.899 Other long term (current) drug therapy; Z79.82 Long term (current) use of aspirin
CPT/HCPCS: 36415; 71045; 87635; 93005; 94640; 99283

== ENCOUNTER 2020-11-07 01:26 | Inpatient (IN) | payer MEDICAID, SELFPAY ==
[2020-11-07] VITALS (24 sets, daily range): BP systolic 87–119; BP diastolic 45–79; PULSE 59–136; RESP 12–26; TEMP 36.4; O2SAT 87–100; BMI 18.8
--- NOTE | 2020-11-07 | ECG_ITS ---
Test Reason : TACHYCARDIA Blood Pressure : / mmHG Vent. Rate : 123 BPM Atrial Rate : 102 BPM P-R Int : 000 ms QRS Dur : 094 ms QT Int : 352 ms P-R-T Axes : 000 088 264 degrees QTc Int : 503 ms Atrial fibrillation with rapid ventricular response ST & T wave abnormality, consider inferior ischemia Abnormal ECG When compared with ECG of 07-NOV-2020 02:38, Atrial fibrillation has replaced Sinus rhythm Vent. rate has increased BY 64 BPM Referred By: Chelo Mann Electronically Signed By:DAWOOD STARR
--- NOTE | 2020-11-07 01:38 | PC.NURSE ---
Pt arrives by EMS, refusing to change out of his clothes, states I'm good. Pt agreeable to VS and tele. This RN inquiring about an IV and bloodwork due to CC, pt states ...I don't like needles. aware that pt is noncompliant with treatment. Awaiting MD caicedo.
--- NOTE | 2020-11-07 01:47 | ECG_ITS ---
Test Reason : SOB Blood Pressure : / mmHG Vent. Rate : 059 BPM Atrial Rate : 059 BPM P-R Int : 182 ms QRS Dur : 092 ms QT Int : 462 ms P-R-T Axes : 083 091 079 degrees QTc Int : 457 ms Sinus bradycardia Rightward axis Borderline ECG When compared with ECG of 05-NOV-2020 14:49, No significant change was found Referred By: Chelo Mann Electronically Signed By:DAWOOD STARR
--- NOTE | 2020-11-07 01:47 | XR_ITS ---
EXAMINATION: CHEST 1 VIEW CLINICAL INFORMATION: Shortness of breath. COMPARISON: 11/05/2020. TECHNIQUE: An AP view of the chest is provided. FINDINGS: The cardiac silhouette is not enlarged. Intact midline sternal wires are present. The mediastinal and hilar contours are unremarkable. There are neither pleural effusions nor pneumothoraces. There are no consolidations. There is stable mild interstitial prominence throughout both lungs. The lungs are again noted to be mildly hyperinflated. The osseous structures are stable. XR/XR chest 1V IMPRESSION: No focal consolidations. Stable mild interstitial prominence. Lung hyperinflation.
--- NOTE | 2020-11-07 01:48 | ED.SOB ---
HPI - SOB/Dyspnea General Chief Complaint: Dyspnea Stated Complaint: SOB Time Seen by Provider: 11/07/20 01:39 Source: EMS Mode of arrival: EMS Limitations: no limitations History of Present Illness HPI Narrative: Patient comes to emergency room via EMS. Patient states he was sleeping, started having shortness of breath, uses albuterol, came to the emergency room. Patient states that he feels better than earlier this evening. Patient has history of COPD and asthma, patient was seen here a few days ago, however patient refused treatment and left against medical advice. Patient did not receive any additional medication in the ambulance. Patient's oxygen saturation has been 97%, respirations 15 during EMS transportation. MD elicited complaint: shortness of breath Related Data Home Medications Medication Instructions Recorded Confirmed albuterol sulfate 90 mcg/actuation 2 puff INHALATION Q6H PRN 08/12/20 11/05/20 aerosol inhaler aspirin 81 mg tablet,delayed 81 mg PO DAILY 08/12/20 11/05/20 release atorvastatin 20 mg tablet 20 mg PO DAILY 08/12/20 11/05/20 tiotropium bromide 18 mcg capsule 1 cap INHALATION DAILY 08/12/20 11/05/20 with inhalation device thiamine HCl (vitamin B1) [Vitamin 100 mg PO DAILY 11/05/20 11/05/20 B-1] Previous Rx's Medication Instructions Recorded dronedarone [Multaq] 400 mg PO BID #60 tab 10/23/20 metoprolol tartrate [Lopressor] 100 mg PO BID #60 tab 10/23/20 Allergies Allergy/AdvReac Type Severity Reaction Status Date / Time No Known Allergies Allergy Verified 11/05/20 14:39 [No Known Allergies*] Review of Systems Review of Systems: Constitutional : No Weight loss, No Fever, No Chills, No Night Sweats, No Fatigue, No Malaise ENT/Mouth : No Hearing loss, No Ear Pain, No Nasal Congestion, No Sinus Pain, No Hoarseness, No sore throat, No Rhinorrhea, No Swallowing Difficulty Eyes: No Eye Pain, No Swelling, No Redness, No Foreign Body, No Discharge, No Vision Changes Cardiovascular : No Chest Pain, No SOB, No Dyspnea on Exertion, No Orthopnea, No Edema, No Palpitations Respiratory : No Cough, No Sputum, patient complaining of wheezing, dyspnea, admits to smoking heavily Gastrointestinal : No Nausea, No Vomiting, No Diarrhea, No Constipation, No abdominal Pain, No Hematochezia, No Melena Genitourinary : no irregular bleeding, No Dysuria, No Urinary Frequency, No Hematuria, No Urinary Incontinence, No Urgency, No Flank Pain, No Urinary Flow Changes, No Hesitancy Musculoskeletal : No joint pain, No Myalgias, No Joint Swelling Skin : No Skin Lesions, No rash Neuro : No Weakness, No Numbness, No Paresthesias, No Loss of Consciousness, No Dizziness, No Headache Psych : No Anxiety/Panic, No Depression, No SI/HI/AH/VH, No Social Issues, Heme/Lymph: No Bruising, No Bleeding,No Lymphadenopathy Endocrine : No Polyuria, No Polydipsia, No Temperature Intolerance [facility] Past Medical History Medical History Alcohol abuse CAD (coronary artery disease) COPD (chronic obstructive pulmonary disease) History of ischemic cardiomyopathy Hypercholesteremia Myocardial infarction Paroxysmal atrial fibrillation Tobacco abuse Surgical History H/O heart bypass surgery Social History Social History Household Members: Other Housing: House Alcohol intake: current Alcohol intake frequency: 3 or more drinks per day Alcohol type: hard liquor Smoking Status: Current every day smoker Tobacco Type: Cigar Packs Per Day: 1 Cigarettes Per Day: 20.0 Years Smoked: 40 Second Hand Smoke Exposure: Yes Advance Directives: No service: No Physical Exam Vital Signs: Vital Signs: Last Vital Signs Temp 97.5 F 11/07/20 01:33 Pulse 59 11/07/20 04:34 Resp 24 H 11/07/20 03:06 BP 105/65 11/07/20 03:06 Pulse Ox 87 L 11/07/20 04:34 Body Mass Index 18.8 Appearance: Alert. Oriented X3. No acute distress. Disheveled Eyes: Pupils equal, round and reactive to light. ENT: Pharynx normal. Neck: Normal inspection. Neck supple. No lymph nodes noted. No crepitus CVS: Normal heart rate and rhythm. Pulses normal. Normal S1 and S2 Respiratory: No respiratory distress. Breath sounds normal. No Wheezing. Good air movement at this time Abdomen: Soft and nontender. No rigidity. No distention. good BS x4 Skin: Skin warm and dry. Normal skin color. Normal skin turgor. Extremities: No lower extremity edema. No Lacerations. No Rash Neuro: Oriented X 3. No motor deficit. No sensory deficit. Moving all extermities. No slurred speech. Course Course Course Narrative: I discussed the labs and imaging with the patient, to patient's knowledge he has nausea history of CHF. Chest x-ray does not show any significant edema. Patient states that he has episodes when he is breathing well, then suddenly he becomes very short of breath. Patient has had multiple episodes in the ED of this. His oxygen saturation remains at 97% on room air with a respiratory rate of 15 to 20. Patient is not wheezing. D-dimer was slightly elevated, CTA of chest negative for PE. However, patient's oxygen saturation dropped to 87% on room air with no exertions. Patient states that he feels short of breath. Patient's breath sounds are normal, not wheezing. Patient will be empirically treated with doxycycline. Sepsis is not suspected at this time. Patient's BNP is elevated at 736, patient does have orthopnea, however x-ray does not show any significant edema. At this time, Lasix was not given because patient's blood pressure is on the lower side, barely above 100 and at this time he is not in respiratory distress. Patient is on 2 L nasal cannula saturating at 97% Troponin 2. Pending. I discussed the patient with our hospitalist Dr. North. Patient being admitted. At this time, it is unclear if the patient's oxygen saturation O2 to CHF versus COPD exacerbation MDM - SOB/Dyspnea Lab Data Result diagrams: 11/07/20 01:56 11/07/20 01:56 Labs: Lab Results 11/07/20 11/07/20 11/07/20 Range/Units 01:56 01:56 01:56 WBC 6.8 (4.8-10.8) X10*3/uL RBC 3.86 L (4.60-5.80) X10*6/uL Hgb 11.0 L (14.0-18.0) g/dl Hct 34.5 L (42-52) % MCV 89.4 (80-98) fL MCH 28.5 (27.0-33.0) pg MCHC 31.9 (31.0-36.0) g/dl RDW 16.7 H (11.0-16.0) % Plt Count 397 D (160-400) X10*3/uL MPV 9.5 (9.4-12.4) fL Immature Gran % (Auto) 0.3 (0.0-0.4) % Neut % (Auto) 46.0 (45-73) % Lymph % (Auto) 39.8 (20-40) % [place] % (Auto) 9.1 (2-11) % Eos % (Auto) 3.2 (0-4) % Baso % (Auto) 1.6 (0-2) % Lymph # (Auto) 2.7 (1.2-4.9) X10*3/uL [place] # (Auto) 0.6 (0.1-1.2) X10*3/uL Eos # (Auto) 0.2 (0.0-0.4) X10*3/uL Baso # (Auto) 0.1 (0.0-0.2) X10*3/uL Abs Immat Gran (auto) 0.02 (0.00-0.03) X10*3/uL Absolute Neuts (auto) 3.1 (2.0-8.3) X10*3/uL Absolute Nucleated RBC 0.000 (0.0-0.012) X10*3/uL Nucleated RBC % (auto) 0.0 (0.0-0.2) /100WBC D-Dimer NG/ML Sodium 139 (135-145) mmol/L Potassium 4.9 (3.3-5.1) mmol/L Chloride 101 (96-108) mmol/L Carbon Dioxide 25 (22-29) mmol/L Anion Gap 18 (12-20) BUN 12 (9-16) mg/dL Creatinine 0.89 (0.5-1.4) mg/dL Estim Creat Clear Calc 70.5 Estimated GFR > 60 Random Glucose 90 D (60-115) mg/dL Lactic Acid 1.7 (0.5-2.0) mmol/L Calcium 8.8 D (8.4-10.2) mg/dL Troponin I High Sens (<3.5-35.0) ng/L B-Natriuretic Peptide (<100) pg/mL 11/07/20 11/07/20 Range/Units 01:56 02:53 WBC (4.8-10.8) X10*3/uL RBC (4.60-5.80) X10*6/uL Hgb (14.0-18.0) g/dl Hct (42-52) % MCV (80-98) fL MCH (27.0-33.0) pg MCHC (31.0-36.0) g/dl RDW (11.0-16.0) % Plt Count (160-400) X10*3/uL MPV (9.4-12.4) fL Immature Gran % (Auto) (0.0-0.4) % Neut % (Auto) (45-73) % Lymph % (Auto) (20-40) % [place] % (Auto) (2-11) % Eos % (Auto) (0-4) % Baso % (Auto) (0-2) % Lymph # (Auto) (1.2-4.9) X10*3/uL [place] # (Auto) (0.1-1.2) X10*3/uL Eos # (Auto) (0.0-0.4) X10*3/uL Baso # (Auto) (0.0-0.2) X10*3/uL Abs Immat Gran (auto) (0.00-0.03) X10*3/uL Absolute Neuts (auto) (2.0-8.3) X10*3/uL Absolute Nucleated RBC (0.0-0.012) X10*3/uL Nucleated RBC % (auto) (0.0-0.2) /100WBC D-Dimer 338 NG/ML Sodium (135-145) mmol/L Potassium (3.3-5.1) mmol/L Chloride (96-108) mmol/L Carbon Dioxide (22-29) mmol/L Anion Gap (12-20) BUN (9-16) mg/dL Creatinine (0.5-1.4) mg/dL Estim Creat Clear Calc Estimated GFR Random Glucose (60-115) mg/dL Lactic Acid (0.5-2.0) mmol/L Calcium (8.4-10.2) mg/dL Troponin I High Sens 8.2 D (<3.5-35.0) ng/L B-Natriuretic Peptide 736 H (<100) pg/mL Imaging Data Chest x-ray: Radiologist's impression: The cardiac silhouette is not enlarged. Intact midline sternal wires are present. The mediastinal and hilar contours are unremarkable. There are neither pleural effusions nor pneumothoraces. There are no consolidations. There is stable mild interstitial prominence throughout both lungs. The lungs are again noted to be mildly hyperinflated. The osseous structures are stable. XR/XR chest 1V IMPRESSION: No focal consolidations. Stable mild interstitial prominence. Lung hyperinflation. CT scan - chest: Radiologist's impression: FINDINGS: The heart is of normal size. There is no pericardial effusion. The great vessels are unremarkable. Specifically, there is no pulmonary arterial filling defect. There is no CT evidence for pulmonary embolism. There are no chest wall masses. Review of lung windows demonstrates that there are neither pleural effusions nor pneumothoraces. There are moderate manifestations of emphysema. There are no consolidations. There are no pulmonary parenchymal nodules. Limited evaluation of the upper abdomen demonstrates that the liver is of normal size and attenuation without focal lesions. Normal adrenal glands are identified. There are compression fractures to T7, T9, L1, L2 and L3. These are age indeterminant, though likely chronic. CT/CT angio chest PE protocol IMPRESSION: No CT evidence for pulmonary embolism. Emphysema. Automated exposure control (Care Dose) Adjustment of the mA and/or kv according to patient size (this includes techniques or standardized protocols for targeted exams where dose is matched to indication / reason for exam; i.e. extremities or head). ECG Data Attestation: I personally reviewed and interpreted this ECG as follows: (Heart rate 59, sinus bradycardia, no ST segment depression or elevation, no T-wave inversions, QTC 457) Discharge Plan Discharge Clinical Impression: Acute dyspnea, CHF (congestive heart failure) Patient Disposition: Admitted As Inpatient Prescriptions: No Action Multaq 400 mg Tablet 400 mg PO BID Qty: 60 RF: 0 metoprolol tartrate [Lopressor] 100 mg tablet 100 mg PO BID Qty: 60 RF: 0 thiamine HCl (vitamin B1) [Vitamin B-1] 100 mg Tablet 100 mg PO DAILY RF: 0 aspirin 81 mg tablet,delayed release (DR/EC) 81 mg PO DAILY RF: 0 atorvastatin 20 mg tablet 20 mg PO DAILY RF: 0 albuterol sulfate [ProAir HFA] 90 mcg/actuation HFA aerosol inhaler 2 puff inhalation Q6H PRN (Reason: Wheezing) RF: 0 Spiriva with HandiHaler 18 mcg capsule, w/inhalation device 1 cap inhalation DAILY RF: 0
--- NOTE | 2020-11-07 01:58 | PC.NURSE ---
IV established, labs obtained including BCX x 2 and lactic. Pt aware of plan for steroids and CXR.
[2020-11-07] MEDS: methylPREDNISolone Sod Succ/PF 125 MG/2 ML VIAL IVPUSH (02:01)
[2020-11-07 02:02] LABS: Basophils Absolute Auto 0.1 X10*3/uL (0.0-0.2); Basophils Percent Auto 1.6 % (0-2); Eosinophils Absolute Auto 0.2 X10*3/uL (0.0-0.4); Eosinophils Percent Auto 3.2 % (0-4); Hematocrit 34.5 % (42-52); Imm Gran Abs Auto 0.02 X10*3/uL (0.00-0.03); Imm Gran Pct Auto 0.3 % (0.0-0.4); Lymphocytes Absolute Auto 2.7 X10*3/uL (1.2-4.9); Lymphocytes Percent Auto 39.8 % (20-40); Mean Corpuscular HGB Conc 31.9 g/dl (31.0-36.0); Mean Corpuscular Hemoglobin 28.5 pg (27.0-33.0); Mean Corpuscular Volume 89.4 fL (80-98); Mean Platelet Volume 9.5 fL (9.4-12.4); Monocytes Absolute Auto 0.6 X10*3/uL (0.1-1.2); Monocytes Percent Auto 9.1 % (2-11); Neutrophils Absolute Auto 3.1 X10*3/uL (2.0-8.3); Platelet Count 397 X10*3/uL (160-400); Red Blood Count 3.86 X10*6/uL (4.60-5.80); Red Cell Distribution Width 16.7 % (11.0-16.0); White Blood Count 6.8 X10*3/uL (4.8-10.8)
[2020-11-07 02:03] LABS: MANUAL DIFF FLAG NO
--- NOTE | 2020-11-07 02:14 | PC.NURSE ---
CXR at bedside.
[2020-11-07 02:16] LABS: Lactic Acid 1.7 mmol/L (0.5-2.0)
[2020-11-07 02:23] LABS: Anion Gap 18 (12-20); Blood Urea Nitrogen 12 mg/dL (9-16); Calcium 8.8 mg/dL (8.4-10.2); Carbon Dioxide 25 mmol/L (22-29); Chloride 101 mmol/L (96-108); Creatinine Clr Calc Pharmacy 70.5; Estimated Glomerular Filt Rate > 60; Glucose Random 90 mg/dL (60-115); Potassium 4.9 mmol/L (3.3-5.1); Sodium 139 mmol/L (135-145)
[2020-11-07 02:27] LABS: B Type Natriuretic Peptide 736 pg/mL (<100); Troponin-I High Sensitivity 8.2 ng/L (<3.5-35.0)
--- NOTE | 2020-11-07 02:32 | PC.NURSE ---
Pt ringing his call styles, reports difficulty breathing. O2 sat 97% on RA. Pt placed on 2 lpm via NC. Awaiting labs. Continue to monitor.
[2020-11-07 03:06] LABS: D Dimer 338 NG/ML
--- NOTE | 2020-11-07 03:07 | PC.NURSE ---
Pt continues reporting SOB while on O2. O2 sat remains 99%. DDimer obtained. Plan to obtain repeat Trop @ 0500.
--- NOTE | 2020-11-07 03:18 | CT_ITS ---
EXAMINATION: CT PULMONARY EMBOLISM STUDY CLINICAL INFORMATION: Elevated d-dimer. Shortness of breath. COMPARISON: Same day chest radiograph. TECHNIQUE: Contiguous helical images of the chest were obtained following the administration of IV contrast. Multiplanar reconstructions were performed. MIPS were obtained and reviewed. DLP: 215 mGy-cm. CONTRAST: 65 mL of Omnipaque 350 were administered without incident. FINDINGS: The heart is of normal size. There is no pericardial effusion. The great vessels are unremarkable. Specifically, there is no pulmonary arterial filling defect. There is no CT evidence for pulmonary embolism. There are no chest wall masses. Review of lung windows demonstrates that there are neither pleural effusions nor pneumothoraces. There are moderate manifestations of emphysema. There are no consolidations. There are no pulmonary parenchymal nodules. Limited evaluation of the upper abdomen demonstrates that the liver is of normal size and attenuation without focal lesions. Normal adrenal glands are identified. There are compression fractures to T7, T9, L1, L2 and L3. These are age indeterminant, though likely chronic. CT/CT angio chest PE protocol IMPRESSION: No CT evidence for pulmonary embolism. Emphysema. Automated exposure control (Care Dose) Adjustment of the mA and/or kv according to patient size (this includes techniques or standardized protocols for targeted exams where dose is matched to indication / reason for exam; i.e. extremities or head).
[2020-11-07] MEDS: iohexoL 350 MG/ML 100 ML INFUS..BTL 65 ML IV (03:39)
[2020-11-07] MEDS: Doxycycline Hyclate 100 MG in 0.9 % Sodium Chloride 250 ML 166.67 MG IV ×2 (05:07→17:04)
--- NOTE | 2020-11-07 05:12 | PC.NURSE ---
Pt medicated with ABX. Covid swab obtained and sent.
[2020-11-07 05:53] LABS: Troponin-I High Sensitivity 9.3 ng/L (<3.5-35.0)
[2020-11-07 06:01] LABS: Influenza A PCR NEGATIVE (Negative); Influenza B PCR NEGATIVE (Negative); Resp Syncy Virus RNA Qual PCR NEGATIVE (Negative); SARS COV2 PCR INHOUSE NEGATIVE (Negative)
[2020-11-07] MEDS: Magnesium Sulfate/H2O 2 GM/50 ML PIGGYBACK IV (06:02)
--- NOTE | 2020-11-07 06:10 | PC.NURSE ---
Addendum entered by Mirian Servin 11/07/20 06:10: Mag infusing per MAR. Original Note: RT at bedside for UPD.
[2020-11-07] MEDS: Albuterol Sulfate (0.083%) 2.5 MG/3 ML VIAL.NEB 10 MG INHALE (06:11)
--- NOTE | 2020-11-07 06:13 | PC.NURSE ---
Pt repositioned upright for better oxygenation, but immediately slides down to sit at the end of the bed, folding himself in half. Pt tripoding at times, stating he can't breathe. Pt reports zero relief with supplemental oxygen. Pt aware of plan to admit. Call styles within reach, continue to monitor.
--- NOTE | 2020-11-07 06:30 | PC.NURSE ---
Pt found laying in bed asleep with UPD on chest. This RN waking pt, educating pt on UPDs, positioning and plan of care.
--- NOTE | 2020-11-07 07:30 | PC.NURSE ---
report taken from Mirian BECK. pt sitting on stretcher. no resp distress. pt reports feeling increased SOB with exertion. lung sounds expiratory wheeze/coarse at bases. sat WNL on 2l o2. finished breathing treatment. pt has non productive cough. pt also reports daily drinking when asked. states he drink about 2-4 drinks of hard alcohol pre day. states he has never gone into withdrawals. pt waiting to b seen by hospitalist for admission.
--- NOTE | 2020-11-07 09:12 | PC.NURSE ---
Addendum entered by Barbara Michelle 11/07/20 09:14: ekg shows rapid afib. MD aware Original Note: pt rhythm tachycardia on tele, ? afib or form withdrawl? ekg being done at this time. ED provider made aware.
[2020-11-07] MEDS: LORazepam 2 MG/ML VIAL IVPUSH (09:46)
[2020-11-07] MEDS: 0.9 % Sodium Chloride 1,000 ML 999 ML IVCONT (09:46)
[2020-11-07] MEDS: dilTIAZem HCL 50 MG/10 ML VIAL 20 MG IVPUSH (09:46)
--- NOTE | 2020-11-07 10:41 | PC.NURSE ---
pt bp remains low after being medicated. per dr woodson hang additional 500 ml ns. will monitor
--- NOTE | 2020-11-07 12:35 | P.HPHOSP_ITS ---
History of Present Illness Date of Service: 11/07/20 Chief Complaint: Shortness of breath 65 year old man with increased shortness of breath. He has a history of afib, CHF and emphysema. In the ER, he was given a dose of lorazepam for possible alcohol withdrawal. Patient became pretty sleepy and hypotensive. Hypotension did improve with some fluid. He was unable to give much history due to lethargy. Apparently he had been hypoxic to 87% on RA. CTA negative for PE, consolidation or edema. His BNP was noted to be elevated at 736 with no overt failure noted. He was noted to be tachycardic mildly with history of Afib. He was given Lasix, Doxycycline, albuterol, diltiazem and one liter of IV fluids. He will be admitted for acute hypoxic respiratory failure secondary to COPD exacerbation. Review of Systems Review of Systems: Yes Unobtainable due to mental status COUNTS INCLUDE 234 BEDS AT THE [facility] Medical History Alcohol abuse CAD (coronary artery disease) COPD (chronic obstructive pulmonary disease) History of ischemic cardiomyopathy Hypercholesteremia Myocardial infarction Paroxysmal atrial fibrillation Tobacco abuse Pertinent family history: Unable to assess due to lethargy Surgical History H/O heart bypass surgery Social History Household Members: Other Housing: House Alcohol intake: current Alcohol intake frequency: 3 or more drinks per day Alcohol type: hard liquor Smoking Status: Current every day smoker Tobacco Type: Cigar Packs Per Day: 1 Cigarettes Per Day: 20.0 Years Smoked: 40 Second Hand Smoke Exposure: Yes Use of substances other than those prescribed or required for medical reasons: No Advance Directives: No service: No Meds Allergies Allergy/AdvReac Type Severity Reaction Status Date / Time No Known Allergies Allergy Verified 11/05/20 14:39 [No Known Allergies*] Home Medications Medication Instructions Recorded Confirmed Type albuterol sulfate 90 mcg/actuation 2 puff INHALATION Q6H PRN 08/12/20 11/05/20 History aerosol inhaler aspirin 81 mg tablet,delayed 81 mg PO DAILY 08/12/20 11/05/20 History release atorvastatin 20 mg tablet 20 mg PO DAILY 08/12/20 11/05/20 History tiotropium bromide 18 mcg capsule 1 cap INHALATION DAILY 08/12/20 11/05/20 History with inhalation device thiamine HCl (vitamin B1) [Vitamin 100 mg PO DAILY 11/05/20 11/05/20 History B-1] Physical Exam Vital Signs and Narrative: Vital Signs: Last Vital Signs Temp 97.6 F 11/07/20 07:26 Pulse 106 H 11/07/20 12:28 Resp 20 11/07/20 12:28 BP 118/79 11/07/20 12:28 Pulse Ox 97 11/07/20 12:28 Body Mass Index 18.8 Sleeping head is normocephalic atraumatic eyes pupils are PERRLA sclera is anicteric mouth throat mucous membranes are intact and moist neck is supple no lymphadenopathy, no JVD noted lung sounds Expiratory wheezing heart Irreg Irreg positive bowel sounds, abdomen is soft, nontender neuro sleeping, unable to assess for focal deficits. Results Labs CBC and Chem 7: 11/07/20 01:56 11/07/20 01:56 Labs: Laboratory Results - last 24 hr 11/07/20 11/07/20 11/07/20 01:56 01:56 01:56 MCV 89.4 MCH 28.5 MCHC 31.9 RDW 16.7 H Plt Count 397 D MPV 9.5 Immature Gran % (Auto) 0.3 Neut % (Auto) 46.0 Lymph % (Auto) 39.8 [place] % (Auto) 9.1 Eos % (Auto) 3.2 Baso % (Auto) 1.6 Lymph # (Auto) 2.7 [place] # (Auto) 0.6 Eos # (Auto) 0.2 Baso # (Auto) 0.1 Abs Immat Gran (auto) 0.02 Absolute Neuts (auto) 3.1 Absolute Nucleated RBC 0.000 Nucleated RBC % (auto) 0.0 D-Dimer Anion Gap 18 Estim Creat Clear Calc 70.5 Estimated GFR > 60 Random Glucose 90 D Lactic Acid 1.7 Calcium 8.8 D Troponin I High Sens B-Natriuretic Peptide Coronavirus (PCR) Influenza Type A (PCR) Influenza Type B (PCR) RSV RNA Qual (PCR) 11/07/20 11/07/20 11/07/20 01:56 02:53 05:02 MCV MCH MCHC RDW Plt Count MPV Immature Gran % (Auto) Neut % (Auto) Lymph % (Auto) [place] % (Auto) Eos % (Auto) Baso % (Auto) Lymph # (Auto) [place] # (Auto) Eos # (Auto) Baso # (Auto) Abs Immat Gran (auto) Absolute Neuts (auto) Absolute Nucleated RBC Nucleated RBC % (auto) D-Dimer 338 Anion Gap Estim Creat Clear Calc Estimated GFR Random Glucose Lactic Acid Calcium Troponin I High Sens 8.2 D 9.3 B-Natriuretic Peptide 736 H Coronavirus (PCR) Influenza Type A (PCR) Influenza Type B (PCR) RSV RNA Qual (PCR) 11/07/20 05:02 MCV MCH MCHC RDW Plt Count MPV Immature Gran % (Auto) Neut % (Auto) Lymph % (Auto) [place] % (Auto) Eos % (Auto) Baso % (Auto) Lymph # (Auto) [place] # (Auto) Eos # (Auto) Baso # (Auto) Abs Immat Gran (auto) Absolute Neuts (auto) Absolute Nucleated RBC Nucleated RBC % (auto) D-Dimer Anion Gap Estim Creat Clear Calc Estimated GFR Random Glucose Lactic Acid Calcium Troponin I High Sens B-Natriuretic Peptide Coronavirus (PCR) NEGATIVE Influenza Type A (PCR) NEGATIVE Influenza Type B (PCR) NEGATIVE RSV RNA Qual (PCR) NEGATIVE Imaging Radiologist's Impressions: Impressions Chest X-Ray 11/07/20 01:47 IMPRESSION: No focal consolidations. Stable mild interstitial prominence. Lung hyperinflation. Chest CTA 11/07/20 03:18 IMPRESSION: No CT evidence for pulmonary embolism. Emphysema. Automated exposure control (Care Dose) Adjustment of the mA and/or kv according to patient size (this includes techniques or standardized protocols for targeted exams where dose is matched to indication / reason for exam; i.e. extremities or head). Assessment and Plan (1) COPD (chronic obstructive pulmonary disease): Status: Acute 65-year-old man admitted with acute hypoxic respiratory failure secondary to COPD exacerbation. COPD exacerbation with acute hypoxic respiratory failure. Solu-Medrol, duo nebs, continue supplemental oxygen. Patient was history of emphysema no consolidation noted on chest CTA. Alcohol abuse. Patient received a dose of Ativan in the ER and is quite sleepy. Will consider phenobarbital once patient is more awake. Place on CIWA scale. Congestive heart failure. No acute exacerbation at this time. No edema noted on chest CT, no rales. AFib. No rapid ventricular response at this time. Will continue patient's home medications including Multaq, metoprolol. Not on anticoagulation. Coronary artery disease. Continue aspirin statin and beta-jagruti. DVT prophylaxis with Lovenox Case discussed with Dr. Gipson Full code
[2020-11-07] MEDS: Enoxaparin Sodium 40 MG/0.4 ML SYRINGE SUBCUT (13:23)
[2020-11-07] MEDS: 0.9 % Sodium Chloride Flush 3 ML SYRINGE IVFLUSH (17:05)
[2020-11-07] MEDS: Metoprolol Tartrate 100 MG TABLET PO (18:47)
--- NOTE | 2020-11-07 19:12 | P.PNIM_ITS ---
Subjective Subjective Date of Service: 11/07/20 Interval History: Patient seems to be sedated probably but received Ativan in the ED. Physical Exam Vital Signs: Vital Signs: Last Vital Signs Temp 97.6 F 11/07/20 07:26 Pulse 88 11/07/20 18:47 Resp 18 11/07/20 17:08 BP 105/54 L 11/07/20 18:47 Pulse Ox 96 11/07/20 17:08 Body Mass Index 18.8 Objective Data Current Medications Generic Name Dose Route Start Last Admin Trade Name Freq PRN Reason Stop Dose Admin Acetaminophen 650 mg 11/07/20 12:57 Acetaminophen 325 Mg Tablet PO Q6H PRN Pain, Mild (Pain Scale 1-3) Aspirin 81 mg 11/08/20 09:00 Aspirin Enteric Coated 81 Mg Tablet.Dr PO DAILY [facility] Atorvastatin Calcium 20 mg 11/08/20 09:00 Atorvastatin Calcium 20 Mg Tablet PO DAILY [facility] Dronedarone 400 mg 11/07/20 17:50 Dronedarone Hcl 400 Mg Tablet PO BID [facility] Enoxaparin Sodium 40 mg 11/07/20 13:00 11/07/20 13:23 Enoxaparin Sodium 40 Mg/0.4 Ml Syringe SUBCUT 40 mg Q24H JASPAL Administration Folic Acid 1 mg 11/08/20 09:00 Folic Acid 1 Mg Tablet PO DAILY [facility] Doxycycline Hyclate 100 mg/ 250 mls @ 166.67 mls/hr 11/07/20 17:00 11/07/20 17:04 Sodium Chloride IV 166.67 mls/hr Q12H JASPAL Administration Levalbuterol HCl 1.25 mg 11/07/20 16:00 11/07/20 16:02 Levalbuterol Hcl 1.25 Mg/0.5 Ml Vial.Neb INHALE 1.25 mg RQ4H WHILE AWAKE JASPAL Administration Methylprednisolone Sodium Succinate 40 mg 11/07/20 13:00 11/07/20 13:22 Methylprednisolone Sod Succ/Pf 40 Mg/Ml Vial IVPUSH 40 mg Q8H JASPAL Administration Metoprolol Tartrate 100 mg 11/07/20 17:50 11/07/20 18:47 Metoprolol Tartrate 100 Mg Tablet PO 100 mg BID JASPAL Administration Protocol Ondansetron HCl 4 mg 11/07/20 12:57 Ondansetron Hcl 4 Mg/2 Ml Vial IVPUSH Q8H PRN Nausea and Vomiting Pharmacy Consult 1 each 11/07/20 12:41 Consult Rx Perform Med Rec MISCELLANE ONCE PRN Consult order Sodium Chloride 3 ml 11/07/20 16:00 11/07/20 17:05 0.9 % Sodium Chloride Flush 3 Ml Syringe IVFLUSH 3 ml QSHIFT [facility] Administration Thiamine HCl 100 mg 11/08/20 09:00 Thiamine Hcl 100 Mg Tablet PO DAILY [facility] Vitamin D 25 mcg 11/08/20 09:00 Cholecalciferol (Vitamin D3) 25 Mcg Tablet PO DAILY [facility] Labs CBC & Chem 7: 11/07/20 01:56 11/07/20 01:56
--- NOTE | 2020-11-07 19:13 | PM.EVENT ---
Event Note Date of Service: 11/08/20 Event Note: Patient seen and examined Opens eyes say his his name otherwise seems sleepy. Could not able to answer questions. Physical exam: Cvs: [id number], [id number] , no murmur res: Diminished breath sound, has bilateral wheezing. abd: no rebound or guarding ,nt, bs present. ext pulses present , no cyanosis neuro: axo3 , nonfocal. Assessment and plan: COPD exacerbation:, steroids, nebs. afib: continue metoprolol, multaq not on ac due to alchol use Alcohol abuse: Currently does not look in withdrawal but, we will monitor on CIWA scale if any new symptoms of withdrawal we can add phenobarb once a awake.
[2020-11-07] MEDS: Dronedarone HCl 400 MG TABLET PO (19:14)
[2020-11-08] VITALS (12 sets, daily range): BP systolic 117–129; BP diastolic 63–78; PULSE 67–93; RESP 12–24; TEMP 36.6–37.1; O2SAT 93–99
[2020-11-08] MEDS: Doxycycline Hyclate 100 MG in 0.9 % Sodium Chloride 250 ML 166.67 MG IV ×2 (06:16→17:20)
[2020-11-08 06:42] LABS: Basophils Percent Auto 0.1 % (0-2); Hematocrit 34.5 % (42-52); Hemoglobin 10.8 g/dl (14.0-18.0); Imm Gran Abs Auto 0.03 X10*3/uL (0.00-0.03); Imm Gran Pct Auto 0.3 % (0.0-0.4); Lymphocytes Absolute Auto 0.6 X10*3/uL (1.2-4.9); Lymphocytes Percent Auto 6.1 % (20-40); MANUAL DIFF FLAG SCAN; Mean Corpuscular HGB Conc 31.3 g/dl (31.0-36.0); Mean Corpuscular Hemoglobin 28.3 pg (27.0-33.0); Mean Corpuscular Volume 90.6 fL (80-98); Mean Platelet Volume 9.9 fL (9.4-12.4); Monocytes Absolute Auto 0.3 X10*3/uL (0.1-1.2); Neutrophils Absolute Auto 8.6 X10*3/uL (2.0-8.3); Neutrophils Percent Auto 90.5 % (45-73); Platelet Count 356 X10*3/uL (160-400); Red Blood Count 3.81 X10*6/uL (4.60-5.80); Red Cell Distribution Width 16.8 % (11.0-16.0); SCAN SMEAR FLAG 1; White Blood Count 9.5 X10*3/uL (4.8-10.8)
[2020-11-08 07:10] LABS: Anion Gap 15 (12-20); Blood Urea Nitrogen 17 mg/dL (9-16); Calcium 8.4 mg/dL (8.4-10.2); Carbon Dioxide 24 mmol/L (22-29); Chloride 106 mmol/L (96-108); Creatinine Clr Calc Pharmacy 72.1; Estimated Glomerular Filt Rate > 60; Glucose Random 141 mg/dL (60-115); Potassium 4.8 mmol/L (3.3-5.1); Sodium 140 mmol/L (135-145)
[2020-11-08 07:13] LABS: B Type Natriuretic Peptide 1586 pg/mL (<100)
[2020-11-08 07:39] LABS: SLIDE REVIEW VERIFIED
[2020-11-08] MEDS: Dronedarone HCl 400 MG TABLET PO ×2 (09:18→19:27)
[2020-11-08] MEDS: Metoprolol Tartrate 100 MG TABLET PO ×2 (09:18→19:11)
[2020-11-08] MEDS: 0.9 % Sodium Chloride Flush 3 ML SYRINGE IVFLUSH ×2 (09:18→17:03)
[2020-11-08] MEDS: Thiamine HCL 100 MG TABLET PO (09:18)
[2020-11-08] MEDS: Aspirin Enteric Coated 81 MG TABLET.DR PO (09:18)
[2020-11-08] MEDS: Folic Acid 1 MG TABLET PO (09:19)
[2020-11-08] MEDS: Cholecalciferol (Vitamin D3) 25 MCG TABLET PO (09:19)
[2020-11-08] MEDS: Atorvastatin Calcium 20 MG TABLET PO (09:19)
--- NOTE | 2020-11-08 13:07 | MHC.CM.PN ---
Attempted to meet with patient in regards to discharge planning. Patient currently sleeping. Spoke with patient's daughter/HCP, Sharmin via telephone at [phone]. Patient lives with Sharmin and her family and is rarely alone. He ambulates with a cane and had no services prior to coming to the hospital. Sharmin agreeable to referral to [facility] for chronic disease management. Referral made via allscripts. PCP verified. HCP verified to be on file. Sharmin will transport patient home when he is medically stable. Continue to monitor for d/c needs.
[2020-11-08] MEDS: Enoxaparin Sodium 40 MG/0.4 ML SYRINGE SUBCUT (13:09)
--- NOTE | 2020-11-08 14:28 | PC.NURSE ---
pt ate and tolerated lunch. pt visibly GUERRA with repositioning in bed, talking.
--- NOTE | 2020-11-08 18:31 | HO.PM.IMPN ---
Subjective Subjective Date of Service: 11/09/20 Interval History: COPD exacerbation Review of Systems Patient still short of breath and has cough otherwise seems better than yesterday Denies any nausea vomiting or any urinary complaints or abdominal pain. Physical Exam Vital Signs: Vital Signs: Last Vital Signs Temp 98.7 F 11/08/20 17:16 Pulse 79 11/08/20 17:16 Resp 13 11/08/20 17:16 BP 117/65 11/08/20 17:16 Pulse Ox 94 11/08/20 17:16 Body Mass Index 18.8 Physical exam Cvs: rrr, [id number] , no murmur res: Diminished breath sound, has bilateral wheezing abd: no rebound or guarding ,nt, bs present. ext pulses present , no cyanosis neuro: axo3 , nonfocal. Objective Data Current Medications Generic Name Dose Route Start Last Admin Trade Name Freq PRN Reason Stop Dose Admin Acetaminophen 650 mg 11/07/20 12:57 Acetaminophen 325 Mg Tablet PO Q6H PRN Pain, Mild (Pain Scale 1-3) Aspirin 81 mg 11/08/20 09:00 11/08/20 09:18 Aspirin Enteric Coated 81 Mg Tablet.Dr PO 81 mg DAILY JASPAL Administration Atorvastatin Calcium 20 mg 11/08/20 09:00 11/08/20 09:19 Atorvastatin Calcium 20 Mg Tablet PO 20 mg DAILY [facility] Administration Dronedarone 400 mg 11/07/20 17:50 11/08/20 09:18 Dronedarone Hcl 400 Mg Tablet PO 400 mg BID JASPAL Administration Enoxaparin Sodium 40 mg 11/07/20 13:00 11/08/20 13:09 Enoxaparin Sodium 40 Mg/0.4 Ml Syringe SUBCUT 40 mg Q24H JASPAL Administration Folic Acid 1 mg 11/08/20 09:00 11/08/20 09:19 Folic Acid 1 Mg Tablet PO 1 mg DAILY JASP[facility] Administration Doxycycline Hyclate 100 mg/ 250 mls @ 166.67 mls/hr 11/07/20 17:00 11/08/20 17:20 Sodium Chloride IV 166.67 mls/hr Q12H JASPAL Administration Levalbuterol HCl 1.25 mg 11/07/20 16:00 11/08/20 15:31 Levalbuterol Hcl 1.25 Mg/0.5 Ml Vial.Neb INHALE 1.25 mg RQ4H WHILE AWAKE JASPAL Administration Methylprednisolone Sodium Succinate 40 mg 11/07/20 13:00 11/08/20 13:09 Methylprednisolone Sod Succ/Pf 40 Mg/Ml Vial IVPUSH 40 mg Q8H JASPAL Administration Metoprolol Tartrate 100 mg 11/07/20 17:50 11/08/20 09:18 Metoprolol Tartrate 100 Mg Tablet PO 100 mg BID JASPAL Administration Protocol Ondansetron HCl 4 mg 11/07/20 12:57 Ondansetron Hcl 4 Mg/2 Ml Vial IVPUSH Q8H PRN Nausea and Vomiting Pharmacy Consult 1 each 11/07/20 12:41 Consult Rx Perform Med Rec MISCELLANE ONCE PRN Consult order Sodium Chloride 3 ml 11/07/20 16:00 11/08/20 17:03 0.9 % Sodium Chloride Flush 3 Ml Syringe IVFLUSH 3 ml QSHIFT JASPAL Administration Thiamine HCl 100 mg 11/08/20 09:00 11/08/20 09:18 Thiamine Hcl 100 Mg Tablet PO 100 mg DAILY [facility] Administration Vitamin D 25 mcg 11/08/20 09:00 11/08/20 09:19 Cholecalciferol (Vitamin D3) 25 Mcg Tablet PO 25 mcg DAILY JASPAL Administration Labs CBC & Chem 7: 11/08/20 06:11 11/08/20 06:11 Microbiology Microbiology Results: Microbiology 11/07/20 01:56 Blood - Venous Blood Culture - Preliminary No growth after 24 hours. 11/07/20 01:56 Blood - Venous Blood Culture - Preliminary No growth after 24 hours. Assessment and Plan (1) COPD (chronic obstructive pulmonary disease): Status: Acute Assessment and Plan: 65-year-old man admitted with acute hypoxic respiratory failure secondary to COPD exacerbation. COPD exacerbation with acute hypoxic respiratory failure. Solu-Medrol, duo nebs, continue supplemental oxygen. Patient was history of emphysema no consolidation noted on chest CTA. Alcohol abuse. Patient received a dose of Ativan in the ER and is quite sleepy. continue on CIWA scale. Congestive heart failure. No acute exacerbation at this time. No edema noted on chest CT, no rales. AFib. No rapid ventricular response at this time. Will continue patient's home medications including Multaq, metoprolol. Not on anticoagulation. Coronary artery disease. Continue aspirin statin and beta-jagruti. DVT prophylaxis with Lovenox
[2020-11-09] VITALS (8 sets, daily range): BP systolic 116–141; BP diastolic 63–88; PULSE 62–90; RESP 12–16; TEMP 36.5–36.7; O2SAT 87–99; BMI 19.2
[2020-11-09] MEDS: 0.9 % Sodium Chloride Flush 3 ML SYRINGE IVFLUSH ×2 (00:24→07:38)
[2020-11-09] MEDS: Doxycycline Hyclate 100 MG in 0.9 % Sodium Chloride 250 ML 166.67 MG IV (04:32)
[2020-11-09] MEDS: Cholecalciferol (Vitamin D3) 25 MCG TABLET PO (07:38)
[2020-11-09] MEDS: Metoprolol Tartrate 100 MG TABLET PO (07:38)
[2020-11-09] MEDS: Atorvastatin Calcium 20 MG TABLET PO (07:38)
[2020-11-09] MEDS: Thiamine HCL 100 MG TABLET PO (07:38)
[2020-11-09] MEDS: Folic Acid 1 MG TABLET PO (07:38)
[2020-11-09] MEDS: Aspirin Enteric Coated 81 MG TABLET.DR PO (07:38)
[2020-11-09] MEDS: Dronedarone HCl 400 MG TABLET PO (07:40)
--- NOTE | 2020-11-09 08:18 | MHC.CM.PN ---
Patient will be discharged home today no services. Dtr/HCP Sharmin [phone] will provide transportation.
--- NOTE | 2020-11-09 12:55 | PM.DS ---
DS: Providers Provider Date of Service: 11/09/20 Date of admission: 11/07/20 12:57 Primary care physician: Kym Sebastian MD DS: Diagnosis Discharge Diagnosis (1) COPD (chronic obstructive pulmonary disease): Status: Acute DS: Medications Discharge Medications Home Medications: Home Medications Medication Instructions Recorded Confirmed albuterol sulfate 90 mcg/actuation 2 puff INHALATION Q6H PRN 08/12/20 11/07/20 aerosol inhaler aspirin 81 mg tablet,delayed 81 mg PO DAILY 08/12/20 11/07/20 release atorvastatin 20 mg tablet 20 mg PO DAILY 08/12/20 11/07/20 tiotropium bromide 18 mcg capsule 1 cap INHALATION DAILY 08/12/20 11/07/20 with inhalation device thiamine HCl (vitamin B1) [Vitamin 100 mg PO DAILY 11/05/20 11/07/20 B-1] cholecalciferol (vitamin D3) 25 mcg PO DAILY 11/07/20 11/07/20 [Vitamin D3] folic acid 1 mg PO DAILY 11/07/20 11/07/20 Previous Rx's Medication Instructions Recorded Multaq 400 mg PO BID #60 tab 10/23/20 metoprolol tartrate [Lopressor] 100 mg PO BID #60 tab 10/23/20 doxycycline monohydrate 100 mg PO BID #10 cap 11/09/20 prednisone 20 mg PO DAILY #8 tab 11/09/20 DS: Summary Hospital Course Hospital Course: 65 year old man with increased shortness of breath. He has a history of afib, CHF and emphysema. In the ER, he was given a dose of lorazepam for possible alcohol withdrawal. Patient became pretty sleepy and hypotensive. Hypotension did improve with some fluid. He was unable to give much history due to lethargy. Apparently he had been hypoxic to 87% on RA. CTA negative for PE, consolidation or edema. His BNP was noted to be elevated at 736 with no overt failure noted. He was noted to be tachycardic mildly with history of Afib. He was given Lasix, Doxycycline, albuterol, diltiazem and one liter of IV fluids. He will be admitted for acute hypoxic respiratory failure secondary to COPD exacerbation. Hospital Course problem I section: 65-year-old man admitted with acute hypoxic respiratory failure secondary to COPD exacerbation: Patient initially came with hypoxia was found to have COPD exacerbation-started on nebs, steroids, doxycycline and subsequently improved patient will go home with p.o. steroids an doxycycline . Patient qualified for home oxygen, smoking cessation was advised in detail-patient understands Above management discussed with the patient in detail length he understand and in agreement with the above plan, time spent 40 minutes and 50% time spent on counseling. Significant findings: As above. Procedures performed: None. Treatment and response: As above. Complications: None. Time Spent with Patient Time attestation: Total time spent providing and/or coordinating discharge services: Discharge coordination time: Greater than 30 minutes Physical Exam Vital Signs: Vital Signs: Last Vital Signs Temp 98.1 F 11/09/20 08:15 Pulse 65 11/09/20 12:00 Resp 16 11/09/20 12:00 BP 133/70 11/09/20 12:00 Pulse Ox 94 11/09/20 12:00 Body Mass Index 19.2 Physical exam: Cvs: [id number], [id number] , no murmur res: clear to auscultation ,no rhonchii or wheezing abd: no rebound or guarding ,nt, bs present. ext pulses present , no cyanosis neuro: axo3 , nonfocal. DS: Data Data Completed and Pending Completed studies during hospitalization [Text1]: Procedures Detoxification Services for Substance Abuse Treatment (10/19/20) Labs on day of discharge: Laboratory Tests 11/07/20 11/07/20 11/07/20 01:56 01:56 01:56 WBC 6.8 RBC 3.86 L Hgb 11.0 L Hct 34.5 L MCV 89.4 MCH 28.5 MCHC 31.9 RDW 16.7 H Plt Count 397 D MPV 9.5 Immature Gran % (Auto) 0.3 Neut % (Auto) 46.0 Lymph % (Auto) 39.8 [place] % (Auto) 9.1 Eos % (Auto) 3.2 Baso % (Auto) 1.6 Lymph # (Auto) 2.7 [place] # (Auto) 0.6 Eos # (Auto) 0.2 Baso # (Auto) 0.1 Abs Immat Gran (auto) 0.02 Absolute Neuts (auto) 3.1 Absolute Nucleated RBC 0.000 Nucleated RBC % (auto) 0.0 Smear Tech's Comments D-Dimer Sodium 139 Potassium 4.9 Chloride 101 Carbon Dioxide 25 Anion Gap 18 BUN 12 Creatinine 0.89 Estim Creat Clear Calc 70.5 Estimated GFR > 60 Random Glucose 90 D Lactic Acid 1.7 Calcium 8.8 D Troponin I High Sens B-Natriuretic Peptide Coronavirus (PCR) Influenza Type A (PCR) Influenza Type B (PCR) RSV RNA Qual (PCR) 11/07/20 11/07/20 11/07/20 01:56 02:53 05:02 WBC RBC Hgb Hct MCV MCH MCHC RDW Plt Count MPV Immature Gran % (Auto) Neut % (Auto) Lymph % (Auto) [place] % (Auto) Eos % (Auto) Baso % (Auto) Lymph # (Auto) [place] # (Auto) Eos # (Auto) Baso # (Auto) Abs Immat Gran (auto) Absolute Neuts (auto) Absolute Nucleated RBC Nucleated RBC % (auto) Smear Tech's Comments D-Dimer 338 Sodium Potassium Chloride Carbon Dioxide Anion Gap BUN Creatinine Estim Creat Clear Calc Estimated GFR Random Glucose Lactic Acid Calcium Troponin I High Sens 8.2 D 9.3 B-Natriuretic Peptide 736 H Coronavirus (PCR) Influenza Type A (PCR) Influenza Type B (PCR) RSV RNA Qual (PCR) 11/07/20 11/08/20 11/08/20 05:02 06:11 06:11 WBC 9.5 RBC 3.81 L Hgb 10.8 L Hct 34.5 L MCV 90.6 MCH 28.3 MCHC 31.3 RDW 16.8 H Plt Count 356 MPV 9.9 Immature Gran % (Auto) 0.3 Neut % (Auto) 90.5 H Lymph % (Auto) 6.1 L [place] % (Auto) 3.0 Eos % (Auto) 0.0 Baso % (Auto) 0.1 Lymph # (Auto) 0.6 L [place] # (Auto) 0.3 Eos # (Auto) 0.0 Baso # (Auto) 0.0 Abs Immat Gran (auto) 0.03 Absolute Neuts (auto) 8.6 H Absolute Nucleated RBC 0.000 Nucleated RBC % (auto) 0.0 Smear Tech's Comments VERIFIED D-Dimer Sodium Potassium Chloride Carbon Dioxide Anion Gap BUN Creatinine Estim Creat Clear Calc Estimated GFR Random Glucose Lactic Acid Calcium Troponin I High Sens B-Natriuretic Peptide 1586 H Coronavirus (PCR) NEGATIVE Influenza Type A (PCR) NEGATIVE Influenza Type B (PCR) NEGATIVE RSV RNA Qual (PCR) NEGATIVE 11/08/20 06:11 WBC RBC Hgb Hct MCV MCH MCHC RDW Plt Count MPV Immature Gran % (Auto) Neut % (Auto) Lymph % (Auto) [place] % (Auto) Eos % (Auto) Baso % (Auto) Lymph # (Auto) [place] # (Auto) Eos # (Auto) Baso # (Auto) Abs Immat Gran (auto) Absolute Neuts (auto) Absolute Nucleated RBC Nucleated RBC % (auto) Smear Tech's Comments D-Dimer Sodium 140 Potassium 4.8 Chloride 106 Carbon Dioxide 24 Anion Gap 15 BUN 17 H Creatinine 0.87 Estim Creat Clear Calc 72.1 Estimated GFR > 60 Random Glucose 141 H D Lactic Acid Calcium 8.4 Troponin I High Sens B-Natriuretic Peptide Coronavirus (PCR) Influenza Type A (PCR) Influenza Type B (PCR) RSV RNA Qual (PCR) Preliminary micro results at discharge 11/07/20 01:56 Blood Culture - Preliminary Blood - Venous No growth after 48 hours. 11/07/20 01:56 Blood Culture - Preliminary Blood - Venous No growth after 48 hours. Discharge Plan Discharge Patient Disposition: Home, Self-Care Referrals: Kym Sebastian MD [Primary Care Provider] - Discharge Medications: New doxycycline monohydrate 100 mg capsule 100 mg PO BID Qty: 10 RF: 0 prednisone 20 mg tablet 20 mg PO DAILY Qty: 8 RF: 0 Continued Multaq 400 mg Tablet 400 mg PO BID Qty: 60 RF: 0 metoprolol tartrate [Lopressor] 100 mg tablet 100 mg PO BID Qty: 60 RF: 0 thiamine HCl (vitamin B1) [Vitamin B-1] 100 mg Tablet 100 mg PO DAILY RF: 0 folic acid 1 mg Tablet 1 mg PO DAILY RF: 0 cholecalciferol (vitamin D3) [Vitamin D3] 25 mcg (1,000 unit) Capsule 25 mcg PO DAILY RF: 0 aspirin 81 mg tablet,delayed release (DR/EC) 81 mg PO DAILY RF: 0 atorvastatin 20 mg tablet 20 mg PO DAILY RF: 0 albuterol sulfate [ProAir HFA] 90 mcg/actuation HFA aerosol inhaler 2 puff inhalation Q6H PRN (Reason: Wheezing) RF: 0 Spiriva with HandiHaler 18 mcg capsule, w/inhalation device 1 cap inhalation DAILY RF: 0 Discharge Orders: Discharge Order (Routine); Ordered 11/09/20 Ordered By: Isabel Gipson Diet: advance to usual diet, low fat, low cholesterol and low salt diet Activity on Discharge: As tolerated Stand Alone Forms: Patient Portal Discharge page Visit Report Forms: Patient Portal Discharge page Care Plan Goals: Patient initially came with hypoxia was found to have COPD exacerbation-started on nebs, steroids, doxycycline and subsequently improved patient will go home with p.o. steroids an doxycycline . Patient qualified for home oxygen, smoking cessation was advised in detail-patient understands Health Concerns: as above. Plan of Treatment: as above.
== END 2020-11-09 13:39 | disposition home or self-care (01) | DRG 140 ==
LOC: HO.ED 08:41 → HO.EDOVER 13:21 → HO.IMC 11-08 13:12 → HO.EDOVER 11-08 13:59 → HO.ICU 11-08 21:04
PROVIDERS: Nurse Practitioner Acute Care; Admitting Provider Internal Medicine; Emergency Provider Emergency Medicine; PCP Student in an Organized Health Care Education/Training Program; Visit Provider Internal Medicine
DX: J43.9 Emphysema, unspecified (principal); J96.01 Acute respiratory failure with hypoxia; I95.9 Hypotension, unspecified; I50.9 Heart failure, unspecified; F10.10 Alcohol abuse, uncomplicated; F17.210 Nicotine dependence, cigarettes, uncomplicated; I25.10 Atherosclerotic heart disease of native coronary artery without angina pectoris; Z95.1 Presence of aortocoronary bypass graft; Z20.822 Contact with and (suspected) exposure to COVID-19; Z71.6 Tobacco abuse counseling; Z79.82 Long term (current) use of aspirin; Z79.52 Long term (current) use of systemic steroids; Z79.899 Other long term (current) drug therapy
CPT/HCPCS: 0241U; 36415; 71045; 71275; 80048; 83605; 83880; 84484; 85025; 85379; 87040; 93005; 94640; 94644; 96361; 96365; 96366; 96367; 96375; 99285; J1650; J2060; J2920; J2930; J3475; Q9967

== ENCOUNTER → 2020-11-11 11:09 | Outpatient (BNVA) | payer MEDICAID, SELFPAY | PROVIDERS: PCP Student in an Organized Health Care Education/Training Program; Visit Provider Nurse Practitioner Family | DX: I25.10 Atherosclerotic heart disease of native coronary artery without angina pectoris (principal); J44.9 Chronic obstructive pulmonary disease, unspecified; F10.10 Alcohol abuse, uncomplicated; Z72.0 Tobacco use; Z95.1 Presence of aortocoronary bypass graft | CPT/HCPCS: 93005; 99212 ==

== ENCOUNTER → 2020-11-20 15:11 | Outpatient (REF) | payer MEDICAID, SELFPAY ==
--- NOTE | 2020-11-22 10:06 | ECG_ITS ---
Hook-up date: 2020-11-20 16:38:00 Duration: 40:37:00 Test Indications: PAF Medications: [id number] QRS complexes 4183 Ventricular ectopics which represent 2 % of total QRS comp. * Supraventricular ectopics which represent % of total QRS comp. * Paced QRS complexs which represent % of total QRS comp. VENTRICULAR ECTOPY 3713 Isolated 34 Bigeminal Cycles 198 Couplets 16 Runs 74 Beats in Runs 13 Beats LONGEST at 175 BPM at 18:33:21 2020-11-20 10 Beats FASTEST at 215 BPM at 20:08:51 2020-11-20 SUPRAVENTRICULAR ECTOPY * Isolated * Couplets * Runs * Beats in Runs * Beats LONGEST at * BPM at :: -- * Beats FASTEST at * BPM at :: -- HEART RATES 63 MIN at 13:20:56 2020-11-21 125 AVG 235 MAX at 20:16:34 2020-11-20 LONGEST RR 1.4960 secs at 11:37:10 2020-11-21 S-T LEVELS Channel 1 - 128 mm at 16:38:00 2020-11-20 - 128 mm at 16:38:00 2020-11-20 Channel 2 - 128 mm at 16:38:00 2020-11-20 - 128 mm at 16:38:00 2020-11-20 Channel 3 - 128 mm at 03:55:71 -- - 128 mm at 03:55:71 Basic rhythm Atrial fibrillation No long pause or profound bradycardia Inadequate rate control with average HR of 125 bpm, with HR as high as 235 bpm Frequent Premature ventricular complexes Multiple short runs of wide complex that could represent NSVT No diary submitted Referred By: Deepthi Silva Overread By: NANCY SUAREZ MD
== END ==
LOC: HO.CARD 15:11
PROVIDERS: PCP Student in an Organized Health Care Education/Training Program; Visit Provider Nurse Practitioner Family
DX: I48.0 Paroxysmal atrial fibrillation (principal); I49.3 Ventricular premature depolarization; I21.9 Acute myocardial infarction, unspecified; I25.119 Atherosclerotic heart disease of native coronary artery with unspecified angina pectoris; J44.9 Chronic obstructive pulmonary disease, unspecified; E78.01 Familial hypercholesterolemia; R05 Cough; F10.10 Alcohol abuse, uncomplicated; Z72.0 Tobacco use; Z95.1 Presence of aortocoronary bypass graft; Z79.82 Long term (current) use of aspirin; Z79.899 Other long term (current) drug therapy
CPT/HCPCS: 93226

== ENCOUNTER → 2020-11-25 13:01 | Outpatient (BNVA) | payer MEDICAID, SELFPAY | PROVIDERS: PCP Student in an Organized Health Care Education/Training Program; Referring Provider Student in an Organized Health Care Education/Training Program; Visit Provider Internal Medicine Cardiovascular Disease | DX: I48.0 Paroxysmal atrial fibrillation (principal); F10.10 Alcohol abuse, uncomplicated; Z72.0 Tobacco use; Z95.1 Presence of aortocoronary bypass graft | CPT/HCPCS: 93005; 99212 ==

== ENCOUNTER → 2020-12-09 13:52 | Outpatient (BNVA) | payer MEDICAID, SELFPAY | PROVIDERS: PCP Student in an Organized Health Care Education/Training Program; Visit Provider Internal Medicine Cardiovascular Disease ==

== ENCOUNTER 2021-02-05 10:14 | Emergency (ER) | payer MEDICAID, SELFPAY ==
[2021-02-05] VITALS (10 sets, daily range): BP systolic 115–147; BP diastolic 65–90; PULSE 60–108; RESP 13–20; TEMP 34.7–36.8; O2SAT 93–99; BMI 18.6
--- NOTE | ~2021-02-05 | XR_ITS ---
EXAMINATION: XR CHEST CLINICAL INFORMATION: Shortness of breath COMPARISON: Previous chest x-ray chest CTA November 2020 TECHNIQUE: Frontal view of the chest was obtained. FINDINGS: The cardiac silhouette is enlarged but stable. Post-CABG changes are seen. The lungs are clear. There is no pleural effusion or pneumothorax. There are degenerative changes of the spine. XR/XR chest 1V IMPRESSION: No evidence for acute disease in the chest.
--- NOTE | 2021-02-05 10:33 | ED_ITS ---
HPI - URI/Sore Throat General Chief Complaint: Upper Respiratory Symptoms Stated Complaint: hypoxic Time Seen by Provider: 02/05/21 10:33 Source: patient Mode of arrival: EMS Limitations: no limitations History of Present Illness HPI Narrative: Patient sent in from her doctors office for increasing shortness of breath. Room air 02 saturation was 80% in the office so he was sent in to the ED. The patient really has no complaints MD elicited complaint: cough Onset (ago): month(s) Consistency: constant Severity: mild Related Data Home Medications Medication Instructions Recorded Confirmed albuterol sulfate 90 mcg/actuation 2 puff INHALATION Q6H PRN 08/12/20 11/25/20 aerosol inhaler aspirin 81 mg tablet,delayed 81 mg PO DAILY 08/12/20 11/25/20 release atorvastatin 20 mg tablet 20 mg PO DAILY 08/12/20 11/25/20 tiotropium bromide 18 mcg capsule 1 cap INHALATION DAILY 08/12/20 11/25/20 with inhalation device thiamine HCl (vitamin B1) [Vitamin 100 mg PO DAILY 11/05/20 11/25/20 B-1] cholecalciferol (vitamin D3) 25 mcg PO DAILY 11/07/20 11/25/20 [Vitamin D3] folic acid 1 mg PO DAILY 11/07/20 11/25/20 Previous Rx's Medication Instructions Recorded doxycycline monohydrate 100 mg PO BID #10 cap 11/09/20 prednisone 20 mg PO DAILY #8 tab 11/09/20 digoxin 125 mcg (0.125 mg) tablet 125 mcg PO DAILY 30 Days #30 tab 11/11/20 metoprolol tartrate 100 mg tablet 100 mg PO BID 90 Days #180 tab 12/31/20 Allergies Allergy/AdvReac Type Severity Reaction Status Date / Time No Known Allergies Allergy Verified 11/05/20 14:39 [No Known Allergies*] Review of Systems Constitutional: Constitutional: Reports no additional constitutional complaints Eyes: Eyes: Reports no additional eye complaints ENT: Denies dizziness Cardiovascular: Cardiovascular: Reports no additional cardiovascular complaints Respiratory: Respiratory: Reports as per HPI Gastrointestinal: Gastrointestinal: Reports no additional gastrointestinal complaints Musculoskeletal: Musculoskeletal: Reports no additional musculoskeletal complaints Integumentary/Breasts: Skin/Breast: Denies rash Neurologic: Reports system reviewed and no additional complaints, except as documented, Denies dizziness and Denies Sensory deficit (Neuro) Psychiatric: Psychiatric: Denies anxiety PMFSH Past Medical History Medical History Alcohol abuse CAD (coronary artery disease) COPD (chronic obstructive pulmonary disease) History of ischemic cardiomyopathy Hypercholesteremia Myocardial infarction Paroxysmal atrial fibrillation Tobacco abuse Surgical History H/O heart bypass surgery Social History Social History Household Members: Family Household Members Other:: brother, daughter and son in law, grandchildren Housing: House Alcohol intake: current Alcohol intake frequency: 3 or more drinks per day Alcohol type: hard liquor Smoking Status: Current every day smoker Tobacco Type: Cigarette Packs Per Day: 1 Cigarettes Per Day: 20.0 Years Smoked: 40 Second Hand Smoke Exposure: Yes Use of substances other than those prescribed or required for medical reasons: No Advance Directives: Yes Advance Directives on File: Yes Advance Directives Date on File: 11/08/20 service: No Current occupational status: retired Physical Exam Vital Signs: Vital Signs: Last Vital Signs Temp 96.8 F 02/05/21 16:06 Pulse 91 02/05/21 16:06 Resp 15 02/05/21 16:06 BP 124/76 02/05/21 16:06 Pulse Ox 94 02/05/21 16:06 Oxygen Flow Rate 2 02/05/21 10:21 Body Mass Index 18.6 Const: Other: unkept, cachectic male, chronically ill appearing Orientation/consciousness: oriented to person Limitations: no limitations HENMT: Head: Yes normal to inspection Ears: external ears normal General nose exam: Normal external nose present Mouth: Normal oral and palatal mucosa present and oropharynx normal Throat: Yes posterior oropharynx normal Eyes: General: appearance normal, both eyes and all related structures Neck: Other: supple Neck: Yes normal visual inspection Chest: Chest palpation & inspection: normal inspection of the chest Resp: Other: distant BS diffuse rhonchi Cardio: Other: IRRR Jugular venous distension: no JVD Heart sounds: S1 normal heart sound present and S2 normal heart sound present GI: Inspection: Yes normal to inspection Palpation (GI): Soft to palpation, nontender and No hepatosplenomegaly present Auscultation: normal bowel sounds : General: Yes no CVA tenderness Back/Spine/Pelvis: Back: no CVA tenderness Skin: General skin exam: no rashes or lesions noted Neuro: General: oriented to person Cranial nerves: Yes CN's II-XII intact bilaterally Motor exam (neuro): 5/5 motor strength present throughout Sensory Exam: No Sensory deficit (Neuro) Extrem: Other: bilateral edema Psych: Appearance: grossly normal Course Course Course Narrative: discussed with daughter will look for short term rehab Reevaluation(s) Reevaluation #1: Patient placed in physician observation at 3:30pm The indication for observation is that the patient needs more time to continue the patients safety and his need for rehab due to pulmonary decompensation. At this time the patient is breathing better lungs slight wheeze, CV RRR, abd nontender, neuro is intact. patient at baseline chronically ill Time: 15:56 MDM - URI/Sore Throat MDM Narrative Medical decision making narrative: COPD, Pneumonia, COVID, all considered Lab Data Result diagrams: 02/05/21 10:55 02/05/21 10:55 Labs: Lab Results 02/05/21 02/05/21 02/05/21 Range/Units 10:55 10:55 10:55 WBC 7.0 (4.8-10.8) X10*3/uL RBC 4.61 D (4.60-5.80) X10*6/uL Hgb 12.6 L (14.0-18.0) g/dl Hct 40.2 L (42-52) % MCV 87.2 (80-98) fL MCH 27.3 (27.0-33.0) pg MCHC 31.3 (31.0-36.0) g/dl RDW 18.4 H (11.0-16.0) % Plt Count 330 (160-400) X10*3/uL MPV 9.8 (9.4-12.4) fL Immature Gran % (Auto) 0.6 H (0.0-0.4) % Neut % (Auto) 54.1 (45-73) % Lymph % (Auto) 30.9 (20-40) % Mccormick % (Auto) 9.3 (2-11) % Eos % (Auto) 3.7 (0-4) % Baso % (Auto) 1.4 (0-2) % Lymph # (Auto) 2.2 (1.2-4.9) X10*3/uL Mccormick # (Auto) 0.7 (0.1-1.2) X10*3/uL Eos # (Auto) 0.3 (0.0-0.4) X10*3/uL Baso # (Auto) 0.1 (0.0-0.2) X10*3/uL Abs Immat Gran (auto) 0.04 H (0.00-0.03) X10*3/uL Absolute Neuts (auto) 3.8 (2.0-8.3) X10*3/uL Absolute Nucleated RBC 0.000 (0.0-0.012) X10*3/uL Nucleated RBC % (auto) 0.0 (0.0-0.2) /100WBC Sodium Cancelled Potassium Cancelled Chloride Cancelled Carbon Dioxide Cancelled Anion Gap Cancelled BUN Cancelled Creatinine Cancelled Estim Creat Clear Calc Cancelled Estimated GFR Cancelled Random Glucose Cancelled Calcium Cancelled Total Bilirubin (0.0-1.0) mg/dL Direct Bilirubin (0.0-0.5) mg/dL AST (5-37) U/L ALT (0-40) U/L Alkaline Phosphatase (39-117) U/L Troponin I High Sens (<3.5-35.0) ng/L B-Natriuretic Peptide 1067 H (<100) pg/mL Total Protein (6.5-8.0) g/dL Albumin (3.5-5.0) g/dL Coronavirus (PCR) (Negative) Influenza Type A (PCR) (Negative) Influenza Type B (PCR) (Negative) RSV RNA Qual (PCR) (Negative) 02/05/21 02/05/21 02/05/21 Range/Units 10:55 10:55 11:08 WBC (4.8-10.8) X10*3/uL RBC (4.60-5.80) X10*6/uL Hgb (14.0-18.0) g/dl Hct (42-52) % MCV (80-98) fL MCH (27.0-33.0) pg MCHC (31.0-36.0) g/dl RDW (11.0-16.0) % Plt Count (160-400) X10*3/uL MPV (9.4-12.4) fL Immature Gran % (Auto) (0.0-0.4) % Neut % (Auto) (45-73) % Lymph % (Auto) (20-40) % Mccormick % (Auto) (2-11) % Eos % (Auto) (0-4) % Baso % (Auto) (0-2) % Lymph # (Auto) (1.2-4.9) X10*3/uL Mccormick # (Auto) (0.1-1.2) X10*3/uL Eos # (Auto) (0.0-0.4) X10*3/uL Baso # (Auto) (0.0-0.2) X10*3/uL Abs Immat Gran (auto) (0.00-0.03) X10*3/uL Absolute Neuts (auto) (2.0-8.3) X10*3/uL Absolute Nucleated RBC (0.0-0.012) X10*3/uL Nucleated RBC % (auto) (0.0-0.2) /100WBC Sodium 138 Potassium 4.2 Chloride 98 Carbon Dioxide 27 Anion Gap 17 BUN 17 H Creatinine 0.96 Estim Creat Clear Calc 64.8 Estimated GFR > 60 Random Glucose 84 D Calcium 8.9 Total Bilirubin 0.5 (0.0-1.0) mg/dL Direct Bilirubin 0.2 (0.0-0.5) mg/dL AST 33 D (5-37) U/L ALT 12 (0-40) U/L Alkaline Phosphatase 170 H D (39-117) U/L Troponin I High Sens 21.0 D (<3.5-35.0) ng/L B-Natriuretic Peptide (<100) pg/mL Total Protein 8.0 (6.5-8.0) g/dL Albumin 4.4 (3.5-5.0) g/dL Coronavirus (PCR) NEGATIVE (Negative) Influenza Type A (PCR) NEGATIVE (Negative) Influenza Type B (PCR) NEGATIVE (Negative) RSV RNA Qual (PCR) NEGATIVE (Negative) Imaging Data Chest x-ray: Radiologist's impression: chronic COPD changes Discharge Plan Discharge Prescriptions: No [facility] metoprolol tartrate [Lopressor] 100 mg tablet 100 mg PO BID 90 Days Qty: 180 RF: 1 thiamine HCl (vitamin B1) [Vitamin B-1] 100 mg Tablet 100 mg PO DAILY RF: 0 folic acid 1 mg Tablet 1 mg PO DAILY RF: 0 cholecalciferol (vitamin D3) [Vitamin D3] 25 mcg (1,000 unit) Capsule 25 mcg PO DAILY RF: 0 doxycycline monohydrate 100 mg capsule 100 mg PO BID Qty: 10 RF: 0 prednisone 20 mg tablet 20 mg PO DAILY Qty: 8 RF: 0 aspirin 81 mg tablet,delayed release (DR/EC) 81 mg PO DAILY RF: 0 atorvastatin 20 mg tablet 20 mg PO DAILY RF: 0 albuterol sulfate [ProAir HFA] 90 mcg/actuation HFA aerosol inhaler 2 puff inhalation Q6H PRN (Reason: Wheezing) RF: 0 Spiriva with HandiHaler 18 mcg capsule, w/inhalation device 1 cap inhalation DAILY RF: 0 digoxin 125 mcg (0.125 mg) tablet 125 mcg PO DAILY 30 Days Qty: 30 RF: 5
--- NOTE | 2021-02-05 10:37 | ECG_ITS ---
Test Reason : UPPER RESPIRATORY Blood Pressure : / mmHG Vent. Rate : 084 BPM Atrial Rate : 089 BPM P-R Int : 000 ms QRS Dur : 094 ms QT Int : 380 ms P-R-T Axes : 000 088 -78 degrees QTc Int : 449 ms Atrial fibrillation Nonspecific ST and T wave abnormality Abnormal ECG When compared with ECG of 07-NOV-2020 09:10, No significant change was found Referred By: Daron Sellers Electronically Signed By:DAWOOD STARR
[2021-02-05 10:59] LABS: MANUAL DIFF FLAG NO
[2021-02-05 11:12] LABS: Basophils Absolute Auto 0.1 X10*3/uL (0.0-0.2); Basophils Percent Auto 1.4 % (0-2); Eosinophils Absolute Auto 0.3 X10*3/uL (0.0-0.4); Eosinophils Percent Auto 3.7 % (0-4); Hematocrit 40.2 % (42-52); Hemoglobin 12.6 g/dl (14.0-18.0); Imm Gran Abs Auto 0.04 X10*3/uL (0.00-0.03); Imm Gran Pct Auto 0.6 % (0.0-0.4); Lymphocytes Absolute Auto 2.2 X10*3/uL (1.2-4.9); Lymphocytes Percent Auto 30.9 % (20-40); Mean Corpuscular HGB Conc 31.3 g/dl (31.0-36.0); Mean Corpuscular Hemoglobin 27.3 pg (27.0-33.0); Mean Corpuscular Volume 87.2 fL (80-98); Mean Platelet Volume 9.8 fL (9.4-12.4); Monocytes Absolute Auto 0.7 X10*3/uL (0.1-1.2); Monocytes Percent Auto 9.3 % (2-11); Neutrophils Absolute Auto 3.8 X10*3/uL (2.0-8.3); Neutrophils Percent Auto 54.1 % (45-73); Platelet Count 330 X10*3/uL (160-400); Red Blood Count 4.61 X10*6/uL (4.60-5.80); Red Cell Distribution Width 18.4 % (11.0-16.0)
[2021-02-05 11:35] LABS: Alanine Aminotransferase 12 U/L (0-40); Albumin Level 4.4 g/dL (3.5-5.0); Alkaline Phosphatase 170 U/L (39-117); Anion Gap 17 (12-20); Aspartate Amino Transferase 33 U/L (5-37); B Type Natriuretic Peptide 1067 pg/mL (<100); Bilirubin Direct 0.2 mg/dL (0.0-0.5); Bilirubin Total 0.5 mg/dL (0.0-1.0); Blood Urea Nitrogen 17 mg/dL (9-16); Calcium 8.9 mg/dL (8.4-10.2); Carbon Dioxide 27 mmol/L (22-29); Chloride 98 mmol/L (96-108); Creatinine Clr Calc Pharmacy 64.8; Estimated Glomerular Filt Rate > 60; Glucose Random 84 mg/dL (60-115); Potassium 4.2 mmol/L (3.3-5.1); Sodium 138 mmol/L (135-145)
[2021-02-05 12:15] LABS: Influenza A PCR NEGATIVE (Negative); Influenza B PCR NEGATIVE (Negative); Resp Syncy Virus RNA Qual PCR NEGATIVE (Negative); SARS COV2 PCR INHOUSE NEGATIVE (Negative)
[2021-02-05] MEDS: Albuterol Sulfate 90 MCG 8 GM INHALER 4 PUFF INHALE (12:34)
[2021-02-05] MEDS: Furosemide 40 MG/4 ML VIAL IVPUSH (12:35)
[2021-02-05] MEDS: Ipratropium Bromide 1 PUFF/17 MCG INHALER 4 PUFF INHALE (13:28)
--- NOTE | 2021-02-05 15:00 | MHC.CM.ED ---
Patient came to the ER due to being hypoxic. Physical therapy eval completed. Short term rehab is recommended. Attempted to meet with patient in regards to dischare planning. However, patient is currently drowsy. Spoke with patient's daughter/HCP Kamla via telephone at [phone]. Patient lives with daughter and has oxygen through [facility]. Kamla feels patient has been increasingly weak and would benefit from pulmonary rehab. Kamla agreeable to referral being broadcasted to all facilities that can offer pulmonary rehab. Patient received his 2nd Moderna shot on 01/19. Continue to monitor for d/c needs.
[2021-02-05] MEDS: Metoprolol Tartrate 100 MG TABLET PO (18:40)
[2021-02-06] VITALS (7 sets, daily range): BP systolic 124–143; BP diastolic 86–94; PULSE 93–119; RESP 13–20; TEMP 36.8; O2SAT 95–100
--- NOTE | 2021-02-06 07:08 | PC.NURSE ---
Around 6am, patient had an acute episode of tachypnea & shortness of breath. This RN to bedside, increased oxygen to 4lpm via nasal cannula with immediate effect. Pt encouraged to breathe deeply, and oxygenation returned to 95%-100% on 4lpm oxygen. aware. Pt remains case management/PT evaluation. Report given to KIRAN Hill.
--- NOTE | 2021-02-06 07:22 | PC.NURSE ---
pt sleeping in bed, resp even and unlabored. breakfast tray at bedside. plan for cm to find placement for pulm rehab.
[2021-02-06] MEDS: predniSONE 20 MG TABLET 60 MG PO (09:18)
--- NOTE | 2021-02-06 10:47 | MHC.CM.ED ---
Facility choices provided to daughter/HCP, Kamla. [facility] is first choice. [facility] is willing to offer a bed. Patient can leave at 1130am. [facility] booked. [facility] with chart. Patient, daughter Liz Cason RN and Dr Michael muro. Continue to [facility] for d/c needs.
[2021-02-06] MEDS: Metoprolol Tartrate 100 MG TABLET PO (11:16)
--- NOTE | 2021-02-06 11:17 | PC.NURSE ---
LS clear but very dim. Slightly labored at rest. skin pwd, a fib in 110 ranfe on monitor. junky loose cough noted. spking full sentences. awaits transfer.
--- NOTE | 2021-02-06 11:20 | PC.NURSE ---
500ml in urinal
--- NOTE | 2021-02-06 12:39 | MHC.CM.ED ---
Report given to Lanre at [facility].
== END 2021-02-06 11:40 | disposition skilled nursing facility (03) ==
PROVIDERS: Emergency Provider Emergency Medicine; PCP Student in an Organized Health Care Education/Training Program
DX: J44.9 Chronic obstructive pulmonary disease, unspecified (principal); Z20.822 Contact with and (suspected) exposure to COVID-19; R06.82 Tachypnea, not elsewhere classified; F10.10 Alcohol abuse, uncomplicated; I48.0 Paroxysmal atrial fibrillation; I25.2 Old myocardial infarction; F17.210 Nicotine dependence, cigarettes, uncomplicated
CPT/HCPCS: 0241U; 36415; 71045; 80048; 80076; 83880; 84484; 85025; 87040; 93005; 96374; 97162; 99283; 99284; 99285; J1940

== ENCOUNTER 2021-02-06 19:47 | Inpatient (IN) | payer MEDICAID, SELFPAY ==
--- NOTE | ~2021-02-06 | CT_ITS ---
EXAMINATION: CT CHEST WITHOUT CONTRAST CLINICAL INFORMATION: Shortness of breath. Evaluate for pneumonia. COMPARISON: Chest CT from 11/07/2020. CXR from 02/05/2021. TECHNIQUE: Multidetector volumetric CT imaging of the chest was done. Axial MIP volume rendering provided. Sagittal and coronal reformatted images were obtained. This CT examination was performed using dose optimization techniques as appropriate, variously including the following: *Automated exposure control *Adjustment of mA and/or kV according to patient size (this includes techniques or standardized protocols for targeted exams where dose is matched to indication/reason for exam; i.e. extremities or head) *Use of iterative reconstruction technique DLP: 263 mGy-cm FINDINGS: LUNGS AND PLEURA: Bronchial coornel are diffusely thickened and there is severe emphysematous lung disease. Scattered endobronchial secretions in lower lobe bronchi, worse compared to 11/07/2020. This could be a manifestation of worsening bronchitis. There are opacities of mild atelectasis in dependent aspect of each upper and lower lobe. The mild, groundglass opacity in the left lower lobe could represent a mild or early onset pneumonia. A new, trace left pleural effusion is present. CARDIOVASCULAR: The heart size is normal. Three-vessel coronary artery atherosclerotic calcification, status post coronary artery bypass graft surgery. Pulmonary arteries are normal in caliber. Thoracic aorta atherosclerosis without aneurysm. No pericardial effusion. MEDIASTINUM AND LOWER NECK: The esophagus and thyroid gland are unremarkable. No mediastinal mass. LYMPHATICS: No pathologic sized lymph nodes. UPPER ABDOMEN: Atherosclerotic calcification of the visualized abdominal aorta without aneurysm. Adrenal glands are normal. SKELETAL AND CHEST WALL: Sternotomy is healed. Bones are diffusely osteoporotic. Chronic height loss of multiple vertebral bodies, including chronic moderate compression fracture deformity of the T7 vertebral body. No acute fractures in the degenerated spine. There are a few old healed right lateral rib fractures. CT/CT chest wo con IMPRESSION: * Severe pulmonary emphysema and chronic thickening of bronchial coronel. Findings are consistent with chronic obstructive pulmonary disease. Interval worsening secretions/mucous plugging of bronchi in the lower lobes. This could be a manifestation of worsening bronchitis. * Mild groundglass opacity in the left lower lobe and trace left pleural effusion raise suspicion for early onset pneumonia. * Atherosclerotic disease of coronary arteries and thoracoabdominal aorta. * Diffuse osteoporosis. Multiple old vertebral compression fractures and old healed rib fractures.
[2021-02-06 19:52] VITALS: BP 131/73; PULSE 90; RESP 20; TEMP 36.4; O2SAT 96; BMI 19.2
--- NOTE | 2021-02-06 20:12 | ED_ITS ---
HPI - SOB/Dyspnea General Chief Complaint: Dyspnea Stated Complaint: SOB Time Seen by Provider: 02/06/21 20:12 Source: patient Mode of arrival: EMS Limitations: no limitations History of Present Illness HPI Narrative: Patient is 65 years old with history of alcoholism tobacco abuse coronary disease three-vessel cardiac bypass surgery done in 2012 with ejection fraction of 40-45% had alcohol withdrawal seizures in the past and severe COPD is still smokes 1 packet per day and still drinks 2-3 drinks of vodka a day has history of paroxysmal atrial fibrillation on digoxin used to be on Multaq was sent here yesterday from doctor's office for increased shortness of breath saturating 80% at room air found to be in CHF and COPD moderate COPD received nebulizing treatment IV steroids and Lasix and sent back to residential today patient sent back from residential for increased shortness of breath on arrival patient was saturating 92% on 2 L received DuoNeb treatment at residential. MD elicited complaint: shortness of breath Related Data Home Medications Medication Instructions Recorded Confirmed albuterol sulfate 90 mcg/actuation 2 puff INHALATION Q6H PRN 08/12/20 02/05/21 aerosol inhaler aspirin 81 mg tablet,delayed 81 mg PO DAILY 08/12/20 02/05/21 release atorvastatin 20 mg tablet 20 mg PO DAILY 08/12/20 02/05/21 tiotropium bromide 18 mcg capsule 1 cap INHALATION DAILY 08/12/20 02/05/21 with inhalation device thiamine HCl (vitamin B1) [Vitamin 100 mg PO DAILY 11/05/20 02/05/21 B-1] cholecalciferol (vitamin D3) 25 mcg PO DAILY 11/07/20 02/05/21 [Vitamin D3] folic acid 1 mg PO DAILY 11/07/20 02/05/21 Previous Rx's Medication Instructions Recorded digoxin 125 mcg (0.125 mg) tablet 125 mcg PO DAILY 30 Days #30 tab 11/11/20 metoprolol tartrate 100 mg tablet 100 mg PO BID 90 Days #180 tab 12/31/20 doxycycline hyclate 100 mg PO BID 7 Days #14 cap 02/06/21 prednisone 40 mg PO DAILY 4 Days #8 tab 02/06/21 Allergies Allergy/AdvReac Type Severity Reaction Status Date / Time No Known Allergies Allergy Verified 11/05/20 14:39 [No Known Allergies*] Review of Systems Review of Systems: Constitutional : No Weight loss, No Fever, No Chills ENT/Mouth : No sore throat, No Rhinorrhea Eyes: No Eye Pain, No Swelling Cardiovascular : No Chest Pain, no palpitations Respiratory : No Cough, No Sputum, ++shortness of breath Gastrointestinal : no Nausea, No Vomiting, No Diarrhea, No abdominal Pain, no black stools Genitourinary : No Dysuria, No Urinary Frequency Musculoskeletal : No joint pain, No Myalgias, No Joint Swelling Skin : No Skin Lesions, No rash Neuro : No Weakness, No Numbness, No Dizziness, No Headache Psych : No Anxiety/Panic, No Depression Heme/Lymph: No Bruising, No Lymphadenopathy Endocrine : No Polyuria, No Polydipsia All other systems reviewed and are negative [facility], [facility] Past Medical History Medical History Alcohol abuse CAD (coronary artery disease) COPD (chronic obstructive pulmonary disease) History of ischemic cardiomyopathy Hypercholesteremia Myocardial infarction Paroxysmal atrial fibrillation Tobacco abuse Surgical History H/O heart bypass surgery Social History Social History Household Members: Family Household Members Other:: brother, daughter and son in law, grandchildren Housing: House Alcohol intake: current Alcohol intake frequency: 3 or more drinks per day Alcohol type: hard liquor Smoking Status: Current every day smoker Tobacco Type: Cigarette Packs Per Day: 1 Cigarettes Per Day: 20.0 Years Smoked: 40 Second Hand Smoke Exposure: Yes Advance Directives: Yes Advance Directives on File: Yes Advance Directives Date on File: 11/08/20 service: No Current occupational status: retired Physical Exam Vital Signs: Vital Signs: Last Vital Signs Temp 97.6 F 02/06/21 19:52 Pulse 98 02/06/21 21:34 Resp 20 02/06/21 20:43 BP 131/68 02/06/21 20:43 Pulse Ox 94 02/06/21 20:43 Body Mass Index 19.2 Const: General: in distress moderate and ill appearing Nutritional Appearance: underweight Orientation/consciousness: patient oriented x3 HENMT: Head: Yes normal to inspection, Yes normocephalic and Yes atraumatic Ears: hearing grossly normal bilaterally General nose exam: Normal external nose present Eyes: General: appearance normal, both eyes and all related structures Conjunctivae: conjunctivae normal Sclerae: sclerae normal Pupils: Equal, round and reactive pupils present Neck: Neck: Yes normal visual inspection, Yes full ROM, Yes no lymphadenopathy and Yes no JVD Chest: Chest palpation & inspection: normal inspection of the chest and normal palpation of entire chest wall Resp: Effort & Inspection: labored Auscultation: crackles bilateral, rales, rhonchi and wheezes Cardio: Palpation: normal PMI Rate: tachycardic Rhythm: abnormal rhythm irregularly irregular Heart sounds: S1 normal heart sound present and S2 n ormal heart sound present Peripheral pulses: Peripheral pulses 2+ throughout GI: Inspection: Yes normal to inspection Palpation (GI): Soft to palpation and nontender Percussion: Yes normal to percussion : General: Yes no CVA tenderness Back/Spine/Pelvis: Back: no CVA tenderness Thoracic/Lumbar Spine: thoracic and lumbar spine normal to inspection Skin: General skin exam: no rashes or lesions noted Neuro: General: patient oriented x3 and no focal motor deficits Cranial nerves: Yes Equal, round and reactive pupils present Extrem: General: Yes normal to inspection, Yes full ROM and Yes no calf tenderness MDM - SOB/Dyspnea MDM Narrative Medical decision making narrative: Patient with severe COPD CHF atrial fibrillation status post CABG smoker and alcoholic seen here yesterday for increased shortness of breath went to residential and came back within few hours for too sick to be kept in rehab for increased shortness of breath workup showed worsening of CHF with atrial fibrillation and COPD CT scan the chest was done showed few new ground-glass infiltrate will admit patient for supportive treatment including IV antibiotics. diuretics and nebulizing treatment lactic a george level of 2.1 likely type B from respiratory failure and respiratory DuoNeb treatment. Differential Diagnosis Differential diagnosis: Likely acute exacerbation of chronic obstructive airways disease, congestive heart failure and pneumonia Medical Records Attestation: I reviewed the patient's medical records. Lab Data Attestation: I reviewed the patient's lab results. Result diagrams: 02/06/21 21:06 02/06/21 21:06 Labs: Lab Results 02/06/21 02/06/21 02/06/21 Range/Units 21:06 21:06 21:06 WBC 4.4 L (4.8-10.8) X10*3/uL RBC 4.30 L (4.60-5.80) X10*6/uL Hgb 11.7 L (14.0-18.0) g/dl Hct 37.2 L (42-52) % MCV 86.5 (80-98) fL MCH 27.2 (27.0-33.0) pg MCHC 31.5 (31.0-36.0) g/dl RDW 18.4 H (11.0-16.0) % Plt Count 261 (160-400) X10*3/uL MPV 10.5 (9.4-12.4) fL Immature Gran % (Auto) 0.5 H (0.0-0.4) % Neut % (Auto) 84.1 H (45-73) % Lymph % (Auto) 9.9 L (20-40) % Moore % (Auto) 5.3 (2-11) % Eos % (Auto) 0.0 (0-4) % Baso % (Auto) 0.2 (0-2) % Lymph # (Auto) 0.4 L (1.2-4.9) X10*3/uL Moore # (Auto) 0.2 (0.1-1.2) X10*3/uL Eos # (Auto) 0.0 (0.0-0.4) X10*3/uL Baso # (Auto) 0.0 (0.0-0.2) X10*3/uL Abs Immat Gran (auto) 0.02 (0.00-0.03) X10*3/uL Absolute Neuts (auto) 3.7 (2.0-8.3) X10*3/uL Absolute Nucleated RBC 0.000 (0.0-0.012) X10*3/uL Nucleated RBC % (auto) 0.0 (0.0-0.2) /100WBC Smear Tech's Comments VERIFIED Sodium 137 (135-145) mmol/L Potassium 3.8 (3.3-5.1) mmol/L Chloride 97 (96-108) mmol/L Carbon Dioxide 31 H (22-29) mmol/L Anion Gap 13 (12-20) BUN 20 H (9-16) mg/dL Creatinine 0.91 (0.5-1.4) mg/dL Estim Creat Clear Calc 68.3 Estimated GFR > 60 Random Glucose 264 H D (60-115) mg/dL Lactic Acid 2.1 H* (0.5-2.0) mmol/L Calcium 8.8 (8.4-10.2) mg/dL Total Bilirubin 1.2 H (0.0-1.0) mg/dL Direct Bilirubin 0.5 (0.0-0.5) mg/dL AST 14 D (5-37) U/L ALT 10 (0-40) U/L Alkaline Phosphatase 115 D (39-117) U/L Troponin I High Sens (<3.5-35.0) ng/L B-Natriuretic Peptide (<100) pg/mL Total Protein 6.6 (6.5-8.0) g/dL Albumin 3.6 (3.5-5.0) g/dL 02/06/21 02/06/21 Range/Units 21:06 21:06 WBC (4.8-10.8) X10*3/uL RBC (4.60-5.80) X10*6/uL Hgb (14.0-18.0) g/dl Hct (42-52) % MCV (80-98) fL MCH (27.0-33.0) pg MCHC (31.0-36.0) g/dl RDW (11.0-16.0) % Plt Count (160-400) X10*3/uL MPV (9.4-12.4) fL Immature Gran % (Auto) (0.0-0.4) % Neut % (Auto) (45-73) % Lymph % (Auto) (20-40) % Moore % (Auto) (2-11) % Eos % (Auto) (0-4) % Baso % (Auto) (0-2) % Lymph # (Auto) (1.2-4.9) X10*3/uL Moore # (Auto) (0.1-1.2) X10*3/uL Eos # (Auto) (0.0-0.4) X10*3/uL Baso # (Auto) (0.0-0.2) X10*3/uL Abs Immat Gran (auto) (0.00-0.03) X10*3/uL Absolute Neuts (auto) (2.0-8.3) X10*3/uL Absolute Nucleated RBC (0.0-0.012) X10*3/uL Nucleated RBC % (auto) (0.0-0.2) /100WBC Smear Tech's Comments Sodium (135-145) mmol/L Potassium (3.3-5.1) mmol/L Chloride (96-108) mmol/L Carbon Dioxide (22-29) mmol/L Anion Gap (12-20) BUN (9-16) mg/dL Creatinine (0.5-1.4) mg/dL Estim Creat Clear Calc Estimated GFR Random Glucose (60-115) mg/dL Lactic Acid (0.5-2.0) mmol/L Calcium (8.4-10.2) mg/dL Total Bilirubin (0.0-1.0) mg/dL Direct Bilirubin (0.0-0.5) mg/dL AST (5-37) U/L ALT (0-40) U/L Alkaline Phosphatase (39-117) U/L Troponin I High Sens 13.0 (<3.5-35.0) ng/L B-Natriuretic Peptide 1711 H (<100) pg/mL Total Protein (6.5-8.0) g/dL Albumin (3.5-5.0) g/dL Imaging Data CT scan - chest: Radiologist's impression: CT/CT chest wo con IMPRESSION: * Severe pulmonary emphysema and chronic thickening of bronchial coronel. Findings are consistent with chronic obstructive pulmonary disease. Interval worsening secretions/mucous plugging of bronchi in the lower lobes. This could be a manifestation of worsening bronchitis. * Mild groundglass opacity in the left lower lobe and trace left pleural effusion raise suspicion for early onset pneumonia. * Atherosclerotic disease of coronary arteries and thoracoabdominal aorta. * Diffuse osteoporosis. Multiple old vertebral compression fractures and old healed rib fractures. ECG Data Attestation: I personally reviewed and interpreted this ECG as follows: Interpretation: Atrial fibrillation with heart rate 93 beats per minute multifocal occasional PVCs no acute ischemic changes Discharge Plan Discharge Clinical Impression: Acute exacerbation of chronic obstructive airways disease Congestive heart failure Qualifiers: Heart failure type: combined systolic and diastolic Heart failure chronicity: acute on chronic Qualified Code(s): I50.43 - Acute on chronic combined systolic (congestive) and diastolic (congestive) heart failure Pneumonia Qualifiers: Pneumonia type: due to unspecified organism Laterality: bilateral Lung location: lower lobe of lung Qualified Code(s): J18.9 - Pneumonia, unspecified organism Atrial fibrillation Qualifiers: Atrial fibrillation type: paroxysmal Qualified Code(s): I48.0 - Paroxysmal atrial fibrillation Patient Disposition: Admitted As Inpatient
--- NOTE | 2021-02-06 20:16 | ECG_ITS ---
Test Reason : SOB Blood Pressure : / mmHG Vent. Rate : 093 BPM Atrial Rate : 063 BPM P-R Int : 000 ms QRS Dur : 088 ms QT Int : 364 ms P-R-T Axes : 000 084 232 degrees QTc Int : 452 ms Atrial fibrillation with premature ventricular or aberrantly conducted complexes Nonspecific T wave abnormality Abnormal ECG When compared with ECG of 05-FEB-2021 11:44, No significant changes seen Referred By: Agustin Bazan Electronically Signed By:DAWOOD STARR
--- NOTE | 2021-02-06 20:25 | PC.NURSE ---
PT BIBA FROM [facility] WHERE HE WAS SENT FROM THIS ED TODAY. EMS REPORTS PT HAD SUDDEN ONSET SOB, RECVD DUONEB X1 W/ MARKED RELIEF. UPON ARRIVAL TO ED SPO2 100% ON 5L O2 NC, PT NOT MAKING CLEAR ANSWER ON IF WEARS O2 AT ALL TIMES, PT TRAILLED ON ROOM AIR, SLOWLY DESATUARATED TO 87%, PT PLACED BACK ON 4L O2 NC, SPO2 QUICKLY INCREASED TO 94%.
[2021-02-06 20:43] VITALS: BP 131/68; PULSE 98; RESP 20; O2SAT 94
[2021-02-06] MEDS: Furosemide 20 MG/2 ML VIAL IVPUSH (21:11)
[2021-02-06 21:14] LABS: Basophils Percent Auto 0.2 % (0-2); Hematocrit 37.2 % (42-52); Hemoglobin 11.7 g/dl (14.0-18.0); Imm Gran Abs Auto 0.02 X10*3/uL (0.00-0.03); Imm Gran Pct Auto 0.5 % (0.0-0.4); Lymphocytes Absolute Auto 0.4 X10*3/uL (1.2-4.9); Lymphocytes Percent Auto 9.9 % (20-40); MANUAL DIFF FLAG SCAN; Mean Corpuscular HGB Conc 31.5 g/dl (31.0-36.0); Mean Corpuscular Hemoglobin 27.2 pg (27.0-33.0); Mean Corpuscular Volume 86.5 fL (80-98); Mean Platelet Volume 10.5 fL (9.4-12.4); Monocytes Absolute Auto 0.2 X10*3/uL (0.1-1.2); Monocytes Percent Auto 5.3 % (2-11); Neutrophils Absolute Auto 3.7 X10*3/uL (2.0-8.3); Neutrophils Percent Auto 84.1 % (45-73); Platelet Count 261 X10*3/uL (160-400); Red Cell Distribution Width 18.4 % (11.0-16.0); SCAN SMEAR FLAG 1; White Blood Count 4.4 X10*3/uL (4.8-10.8)
[2021-02-06 21:30] LABS: SLIDE REVIEW VERIFIED
[2021-02-06] MEDS: Albuterol/Iprat 2.5/0.5MG 3 ML AMPUL.NEB INHALE (21:33)
[2021-02-06 21:34] VITALS: PULSE 98
[2021-02-06 21:48] LABS: Alanine Aminotransferase 10 U/L (0-40); Albumin Level 3.6 g/dL (3.5-5.0); Alkaline Phosphatase 115 U/L (39-117); Anion Gap 13 (12-20); Aspartate Amino Transferase 14 U/L (5-37); Bilirubin Direct 0.5 mg/dL (0.0-0.5); Bilirubin Total 1.2 mg/dL (0.0-1.0); Blood Urea Nitrogen 20 mg/dL (9-16); Calcium 8.8 mg/dL (8.4-10.2); Carbon Dioxide 31 mmol/L (22-29); Chloride 97 mmol/L (96-108); Creatinine Clr Calc Pharmacy 68.3; Estimated Glomerular Filt Rate > 60; Glucose Random 264 mg/dL (60-115); Potassium 3.8 mmol/L (3.3-5.1); Sodium 137 mmol/L (135-145); Total Protein 6.6 g/dL (6.5-8.0)
[2021-02-06 21:50] LABS: Lactic Acid 2.1 mmol/L (0.5-2.0)
[2021-02-06 21:55] LABS: B Type Natriuretic Peptide 1711 pg/mL (<100)
[2021-02-06 23:10] LABS: Reflex Lactate? Lactic Acid Added
[2021-02-06 23:45] VITALS: O2SAT 92
[2021-02-07] VITALS (18 sets, daily range): BP systolic 99–142; BP diastolic 57–89; PULSE 85–138; RESP 14–20; TEMP 36.3–36.9; O2SAT 90–96; BMI 19.5
[2021-02-07] MEDS: cefTRIAXone sodium 1 GM in 0.9 % Sodium Chloride 50 ML IV (00:04)
[2021-02-07 00:25] LABS: ~Lactic Acid-LAB USE ONLY 1.7 mmol/L (0.5-2.0)
[2021-02-07 00:33] LABS: Digoxin 0.5 ng/mL (0.8-2.0)
[2021-02-07] MEDS: Azithromycin 500 MG in 0.9 % Sodium Chloride 250 ML 125 MG IV (00:55)
[2021-02-07] MEDS: Enoxaparin Sodium 40 MG/0.4 ML SYRINGE SUBCUT (02:13)
[2021-02-07] MEDS: 0.9 % Sodium Chloride Flush 3 ML SYRINGE IVFLUSH ×4 (02:57→22:13)
[2021-02-07] MEDS: methylPREDNISolone Sod Succ 40 MG/ML VIAL IVPUSH ×2 (02:57→14:59)
--- NOTE | 2021-02-07 04:38 | PC.NURSE ---
0413 pt having more pvc's and 3 beats on the monitor. notified.stat bmp and mag level ordered.
[2021-02-07 05:14] LABS: MANUAL DIFF FLAG NO
[2021-02-07 05:23] LABS: Basophils Percent Auto 0.3 % (0-2); Hematocrit 34.9 % (42-52); Hemoglobin 11.1 g/dl (14.0-18.0); Imm Gran Abs Auto 0.02 X10*3/uL (0.00-0.03); Imm Gran Pct Auto 0.3 % (0.0-0.4); Lymphocytes Absolute Auto 0.9 X10*3/uL (1.2-4.9); Lymphocytes Percent Auto 11.1 % (20-40); Mean Corpuscular HGB Conc 31.8 g/dl (31.0-36.0); Mean Corpuscular Hemoglobin 27.5 pg (27.0-33.0); Mean Corpuscular Volume 86.6 fL (80-98); Mean Platelet Volume 10.8 fL (9.4-12.4); Monocytes Percent Auto 12.3 % (2-11); Neutrophils Absolute Auto 6.1 X10*3/uL (2.0-8.3); Platelet Count 265 X10*3/uL (160-400); Red Blood Count 4.03 X10*6/uL (4.60-5.80); Red Cell Distribution Width 18.3 % (11.0-16.0)
[2021-02-07 05:52] LABS: Anion Gap 18 (12-20); Blood Urea Nitrogen 18 mg/dL (9-16); Carbon Dioxide 30 mmol/L (22-29); Chloride 97 mmol/L (96-108); Creatinine Clr Calc Pharmacy 74.5; Estimated Glomerular Filt Rate > 60; Glucose Random 130 mg/dL (60-115); Potassium 3.8 mmol/L (3.3-5.1); Sodium 141 mmol/L (135-145)
[2021-02-07 05:54] LABS: Magnesium 1.2 mg/dL (1.6-2.6)
--- NOTE | 2021-02-07 05:58 | PM.IMHP ---
History of Present Illness Date of Service: 02/06/21 Chief Complaint: Shortness of breath This is a 65-year-old male with past medical history of COPD, CAD status post CABG, CHF, alcohol abuse, COPD, paroxysmal AFib on digoxin, initial presents to the hospital on 02/05 with increased shortness of breath and hypoxia in the 80s. At that time patient was managed in the ED and sent to rehab. He returns today with increased shortness of breath and low saturation of 92% on 2 L of oxygen. Patient reports that he has had the symptoms for the past 1-2 weeks, he has some cough, minimal sputum production, no chest pain, no fever or chills, no abdominal pain nausea or vomiting, diarrhea constipation. No urinary symptoms. He denies any lower extremity edema. Feels weakness and fatigue. On arrival to the ED vitals are significant for Heart rate of 119, temp of 97.6?, blood pressure 143/86, respiratory rate of 18, satting 97% on 2 L of oxygen Labs are significant for WBC count of 4.4, hemoglobin of 11.7, hematocrit 37.2, lactic acid of 2.1, BNP that increased from 1067 on 02/05 to 1711 today. COVID19 done on 02/[address] shows severe pulmonary emphysema and chronic thickening of bronchial coronel, consistent with obstructive pulmonary disease. Bronchitis. Mild ground-glass opacity in the left lower lobe and trace left pleural effusion. EKG shows AFib with premature ventricular or aberrantly conducted complexes, nonspecific ST T wave changes Past medical history as below and confirmed with patient Review of Systems Review of Systems: Yes all other systems are reviewed and are negative [facility] Medical History Alcohol abuse CAD (coronary artery disease) COPD (chronic obstructive pulmonary disease) History of ischemic cardiomyopathy Hypercholesteremia Myocardial infarction Paroxysmal atrial fibrillation Tobacco abuse Surgical History H/O heart bypass surgery Social History Household Members: Family Household Members Other:: brother, daughter and son in law, grandchildren Housing: House Do you presently have visiting nurse or other home services: No Alcohol intake: current Alcohol intake frequency: 3 or more drinks per day Alcohol type: hard liquor Smoking Status: Current every day smoker Tobacco Type: Cigarette Packs Per Day: 1 Cigarettes Per Day: 20.0 Years Smoked: 40 Smoked in Last 30 Days: Yes Patient Interested in Nicotine Replacement: Yes Patient Given Instructions on How to Stop Smoking: Yes Date Education Initiated: 02/07/21 Second Hand Smoke Exposure: Yes Use of substances other than those prescribed or required for medical reasons: No Have you been hit, kicked, punched, or otherwise hurt by someone within the past year? If so, by whom?: No Do you feel safe in your current relationship?: Yes Is there a partner from a previous relationship who is making you feel unsafe now?: No Are you made to feel afraid or neglected: No Advance Directives: Yes Advance Directives on File: Yes Advance Directives Date on File: 11/08/20 Do you have thoughts of harming others: None Do you have a plan to hurt others: No Plan Recently lost weight without trying: No Nutrition Risks: Poor intake 0-25% >4 days Poor oral hygiene: No service: No Current occupational status: retired [employer] Allergies Allergy/AdvReac Type Severity Reaction Status Date / Time No Known Allergies Allergy Verified 11/05/20 14:39 [No Known Allergies*] Active Medications: Current Medications Generic Name Dose Route Start Last Admin Trade Name Freq PRN Reason Stop Dose Admin Acetaminophen 650 mg 02/07/21 01:16 Acetaminophen 325 Mg Tablet PO Q6H PRN Pain, Mild (Pain Scale 1-3) Albuterol/Ipratropium 3 ml 02/07/21 08:00 Albuterol/Iprat 2.5/0.5mg 3 Ml Ampul.Neb INHALE RQ4H WHILE AWAKE [facility] Albuterol/Ipratropium 3 ml 02/07/21 01:16 Albuterol/Iprat 2.5/0.5mg 3 Ml Ampul.Neb INHALE RQ4H PRN Shortness of Breath/Wheezing Docusate Sodium 100 mg 02/07/21 01:16 Docusate Sodium 100 Mg Capsule PO DAILY PRN Constipation Enoxaparin Sodium 40 mg 02/07/21 02:00 02/07/21 02:13 Enoxaparin Sodium 40 Mg/0.4 Ml Syringe SUBCUT 40 mg Q24H [facility] Administration Furosemide 40 mg 02/07/21 08:00 Furosemide 40 Mg/4 Ml Vial IVPUSH DAILY@0800 [facility] Protocol Ceftriaxone Sodium 1 gm/ 50 mls @ 100 mls/hr 02/08/21 00:00 Sodium Chloride IV Q24H [facility] Azithromycin 500 mg/ Sodium 250 mls @ 125 mls/hr 02/08/21 01:00 Chloride IV Q24H [facility] Methylprednisolone Sodium Succinate 40 mg 02/07/21 02:00 02/07/21 02:57 Methylprednisolone Sod Succ 40 Mg/Ml Vial IVPUSH 40 mg Q12H [facility] Administration Ondansetron HCl 4 mg 02/07/21 01:16 Ondansetron Hcl 4 Mg/2 Ml Vial IVPUSH Q8H PRN Nausea and Vomiting Sodium Chloride 3 ml 02/07/21 01:16 02/07/21 02:57 0.9 % Sodium Chloride Flush 3 Ml Syringe IVFLUSH 3 ml QSHIFT [facility] Administration Home Medications Medication Instructions Recorded Confirmed Last Taken Type albuterol sulfate 90 mcg/actuation 2 puff INHALATION Q6H PRN 08/12/20 02/05/21 Unknown History aerosol inhaler aspirin 81 mg tablet,delayed 81 mg PO DAILY 08/12/20 02/05/21 Unknown History release atorvastatin 20 mg tablet 20 mg PO DAILY 08/12/20 02/05/21 Unknown History tiotropium bromide 18 mcg capsule 1 cap INHALATION DAILY 08/12/20 02/05/21 Unknown History with inhalation device thiamine HCl (vitamin B1) [Vitamin 100 mg PO DAILY 11/05/20 02/05/21 Unknown History B-1] cholecalciferol (vitamin D3) 25 mcg PO DAILY 11/07/20 02/05/21 Unknown History [Vitamin D3] folic acid 1 mg PO DAILY 11/07/20 02/05/21 Unknown History Physical Exam Vital Signs and Narrative: Vital Signs: Last Vital Signs Temp 98.4 F 02/07/21 02:00 Pulse 98 02/07/21 02:00 Resp 16 02/07/21 03:02 BP 126/79 02/07/21 02:00 Pulse Ox 96 02/07/21 02:00 Body Mass Index 19.5 Const: General: cooperative, ill appearing, poor hygiene and tired appearing Nutritional Appearance: thin Orientation/consciousness: patient oriented x3 Eyes: General: appearance normal, both eyes and all related structures Resp: Effort & Inspection: normal respiratory effort, able to speak in complete sentences and Actively coughing Cardio: Rate: regular rate Rhythm: regular rhythm GI: Palpation (GI): Soft to palpation Auscultation: normal bowel sounds Skin: General skin exam: no rashes or lesions noted Neuro: General: patient oriented x3 Cognition (Neuro): normal cognition Extrem: General: Yes normal to inspection and Yes no pedal edema Results Labs CBC and Chem 7: 02/07/21 04:26 02/07/21 04:26 Labs: Laboratory Results - last 24 hr 02/06/21 02/06/21 02/06/21 21:06 21:06 21:06 MCV 86.5 MCH 27.2 MCHC 31.5 RDW 18.4 H Plt Count 261 MPV 10.5 Immature Gran % (Auto) 0.5 H Neut % (Auto) 84.1 H Lymph % (Auto) 9.9 L [place] % (Auto) 5.3 Eos % (Auto) 0.0 Baso % (Auto) 0.2 Lymph # (Auto) 0.4 L [place] # (Auto) 0.2 Eos # (Auto) 0.0 Baso # (Auto) 0.0 Abs Immat Gran (auto) 0.02 Absolute Neuts (auto) 3.7 Absolute Nucleated RBC 0.000 Nucleated RBC % (auto) 0.0 Smear Tech's Comments VERIFIED Anion Gap 13 Estim Creat Clear Calc 68.3 Estimated GFR > 60 Random Glucose 264 H D Lactic Acid 2.1 H* Lactic Acid Fup @ 2Hr Calcium 8.8 Magnesium Total Bilirubin 1.2 H Direct Bilirubin 0.5 AST 14 D ALT 10 Alkaline Phosphatase 115 D Troponin I High Sens B-Natriuretic Peptide Total Protein 6.6 Albumin 3.6 Digoxin 02/06/21 02/06/21 02/07/21 21:06 21:06 00:01 MCV MCH MCHC RDW Plt Count MPV Immature Gran % (Auto) Neut % (Auto) Lymph % (Auto) [place] % (Auto) Eos % (Auto) Baso % (Auto) Lymph # (Auto) [place] # (Auto) Eos # (Auto) Baso # (Auto) Abs Immat Gran (auto) Absolute Neuts (auto) Absolute Nucleated RBC Nucleated RBC % (auto) Smear Tech's Comments Anion Gap Estim Creat Clear Calc Estimated GFR Random Glucose Lactic Acid Lactic Acid Fup @ 2Hr 1.7 Calcium Magnesium Total Bilirubin Direct Bilirubin AST ALT Alkaline Phosphatase Troponin I High Sens 13.0 B-Natriuretic Peptide 1711 H Total Protein Albumin Digoxin 02/07/21 02/07/21 02/07/21 00:01 04:26 04:26 MCV 86.6 MCH 27.5 MCHC 31.8 RDW 18.3 H Plt Count 265 MPV 10.8 Immature Gran % (Auto) 0.3 Neut % (Auto) 76.0 H Lymph % (Auto) 11.1 L [place] % (Auto) 12.3 H Eos % (Auto) 0.0 Baso % (Auto) 0.3 Lymph # (Auto) 0.9 L [place] # (Auto) 1.0 Eos # (Auto) 0.0 Baso # (Auto) 0.0 Abs Immat Gran (auto) 0.02 Absolute Neuts (auto) 6.1 Absolute Nucleated RBC 0.000 Nucleated RBC % (auto) 0.0 Smear Tech's Comments Anion Gap 18 Estim Creat Clear Calc 74.5 Estimated GFR > 60 Random Glucose 130 H D Lactic Acid Lactic Acid Fup @ 2Hr Calcium 9.0 Magnesium 1.2 L* Total Bilirubin Direct Bilirubin AST ALT Alkaline Phosphatase Troponin I High Sens B-Natriuretic Peptide Total Protein Albumin Digoxin 0.5 L Imaging Radiologist's Impressions: Impressions Chest CT 02/06/21 20:19 IMPRESSION: * Severe pulmonary emphysema and chronic thickening of bronchial coronel. Findings are consistent with chronic obstructive pulmonary disease. Interval worsening secretions/mucous plugging of bronchi in the lower lobes. This could be a manifestation of worsening bronchitis. * Mild groundglass opacity in the left lower lobe and trace left pleural effusion raise suspicion for early onset pneumonia. * Atherosclerotic disease of coronary arteries and thoracoabdominal aorta. * Diffuse osteoporosis. Multiple old vertebral compression fractures and old healed rib fractures. Assessment and Plan (1) CHF exacerbation: Status: Acute (2) Acute exacerbation of chronic obstructive airways disease: Status: Acute (3) Pneumonia: Qualifiers: Laterality: bilateral Lung location: lower lobe of lung Pneumonia type: due to unspecified organism Qualified Code(s): J18.9 - Pneumonia, unspecified organism Status: Acute (4) Acute dyspnea: Status: Acute This is a 65-year-old male with past medical history of heart failure, COPD among others who presents to the hospital with complaints of worsening shortness of breath and hypoxia. # worsening acute dyspnea - most likely multifactorial secondary to CHF exacerbation as well as community-acquired pneumonia as well as COPD exacerbation - patient has evidence of CHF with elevated BNP, pleural effusion on chest CT, patient also has evidence of pneumonia on the same chest CT with leukopenia - will treat for both - presented with 90% on room air but apparently was hypoxic the day prior - will treat for above with IV antibiotics, Lasix - monitor respiratory status, titrate O2 as tolerated # CHF exacerbation - elevated BNP, dyspnea, pulmonary pleural effusion on chest CT - last echocardiogram done in 08/2020 shows ejection fraction 55-60% and moderate pulmonary hypertension - at this time will treat with Lasix 40 IV b.i.d. strict I&O, low-sodium diet, daily weight - troponin of 13, with no chest pain or EKG changes suggestive of ACS - will repeat echocardiogram # community-acquired pneumonia - leukopenia, afebrile, - chest CT showing ground-glass opacity - COVID-19 negative - will start him on IV antibiotics for community-acquired pneumonia - follow cultures # COPD exacerbation - IV antibiotics as above, Solu-Medrol, DuoNeb p.r.n. and scheduled # AFib - continue metoprolol, and digoxin, does not appear to be on anticoagulation( unclear why) # hyperlipidemia - continue statin DVT prophylaxis: Lovenox
--- NOTE | 2021-02-07 06:00 | PC.NURSE ---
magnesium level 1.2. notified. 2gram iv magnesium ordered.
[2021-02-07] MEDS: Magnesium Sulfate/H2O 2 GM/50 ML PIGGYBACK IV (06:29)
[2021-02-07] MEDS: Albuterol/Iprat 2.5/0.5MG 3 ML AMPUL.NEB INHALE ×2 (07:46→11:19)
[2021-02-07] MEDS: Nicotine 14 MG PATCH.TD24 TRANSDERMA (08:40)
[2021-02-07] MEDS: Furosemide 40 MG/4 ML VIAL IVPUSH (08:40)
--- NOTE | 2021-02-07 08:56 | MHC.CM.PN ---
PATIENT LIVES WITH HIS DAUGHTER, SONS, AND BROTHER. FAMILY ASSISTS WITH TRANSPORT WHERE NEEDED. HCP IS IN [employer] AND PRINTED OUT FOR CHART. PATIENT HAD BE[facility] AND RETURNED SAME DAY. PATIENT IS AGREEABLE TO PLACING A REFERRAL BACK TO FACILITY BUT IS ALSO HOPING TO BE ABLE TO RETURN HOME AT DISCHARGE. CASE MANAGEMENT FOLLOWING FOR PLANS.
--- NOTE | 2021-02-07 09:12 | P.CDIC_ITS ---
CDI Concurrent Query Service Date: 02/07/21 Documentation Clarification: Please clarify if you are treating a proba ble/suspected/likely or confirmed: Acute hypoxic respiratory failure, POA, resolved, Treat, rule out Please specify if known or undertermined PLEASE DO NOT DELETE/MODIFY EXISTING CONTENT Additional information is needed in order to code to the highest accuracy and appropriate Severity of Illness (SOI). Please clarify the information noted below in your progress notes and discharge summary. Risk Factors/Clinical Indicators/Treatments Ed: MDM narrative - lactic acid level of 2.1 likely Type B from respiratory failure and respiratory Duoneb txt. Worsening SOB and hypoxia, dyspnea, monitor respiratory stats, Titrate O2 as tolerated, RR 20, Sat 92% placed on 2 liters NC Smoker CDS: Gabi Chau CCS, CDIS Contact Number: [phone] Please Review the information above and exercise your independent professional judgment in responding to the query. If you concur, pleas document in the PROGRESS NOTES and DISCHARGE SUMMARY. If you do not agree with the query, please document in the query above. THIS QUERY IS PART OF THE PERMANENT MEDICAL RECORD
--- NOTE | 2021-02-07 10:25 | P.CDIC_ITS ---
CDI Concurrent Query Service Date: 02/10/21 Documentation Clarification: Please clarify if you are treating a proba ble/suspected/likely or confirmed: LABS Hypomagnesemia Please specify if known or undetermined Provider Response: Other Other Diagnosis: Hypomagnesemia PLEASE DO NOT DELETE/MODIFY EXISTING CONTENT Additional information is needed in order to code to the highest accuracy and appropriate Severity of Illness (SOI). Please clarify the information noted below in your progress notes and discharge summary. Risk Factors/Clinical Indicators/Treatments LAB FINDINGS: magnesium 1.2 L IV magnesium sulfate CDS: Gabi Chau CCS, CDIS Contact Number: [phone] Please Review the information above and exercise your independent professional judgment in responding to the query. If you concur, pleas document in the PROGRESS NOTES and DISCHARGE SUMMARY. If you do not agree with the query, please document in the query above. THIS QUERY IS PART OF THE PERMANENT MEDICAL RECORD
--- NOTE | 2021-02-07 11:44 | ECG_ITS ---
Test Reason : TACHYCARDIA Blood Pressure : / mmHG Vent. Rate : 143 BPM Atrial Rate : 138 BPM P-R Int : 000 ms QRS Dur : 088 ms QT Int : 316 ms P-R-T Axes : 000 082 258 degrees QTc Int : 487 ms Atrial fibrillation with rapid ventricular response ST & T wave abnormality, consider inferior ischemia Abnormal ECG When compared with ECG of 06-FEB-2021 20:41, Vent. rate has increased BY [address] now depressed in Lateral leads Inverted T waves have replaced nonspecific T wave abnormality in Inferior leads T wave amplitude has increased in Anterior leads Referred By: Ana Hanson Electronically Signed By:DAWOOD STARR
[2021-02-07] MEDS: Digoxin 0.125 MG TABLET PO (12:22)
[2021-02-07] MEDS: Metoprolol Tartrate 100 MG TABLET PO ×2 (12:22→22:13)
--- NOTE | 2021-02-07 12:46 | HO.PM.IMPN ---
Subjective Subjective Date of Service: 02/07/21 Interval History: Seen and examined this morning Reports shortness of breath and dry cough for several days. He denies fever or chills Denies chest pain, palpitations. Review of Systems Review of Systems: Yes all other systems are reviewed and are negative Constitutional Constitutional: Denies chills and Denies fever(s) Cardiovascular Cardiovascular: Denies chest pain Respiratory Respiratory: Reports cough Gastrointestinal Gastrointestinal: Denies abdominal pain Physical Exam Vital Signs: Vital Signs: Last Vital Signs Temp 97.6 F 02/07/21 12:00 Pulse 133 H 02/07/21 12:00 Resp 18 02/07/21 12:00 BP 99/57 L 02/07/21 12:00 Pulse Ox 96 02/07/21 12:00 Body Mass Index 19.5 Const: General: alert, awake and ill appearing Nutritional Appearance: thin Orientation/consciousness: patient oriented x3 HENMT: Head: Yes normocephalic and Yes atraumatic Eyes: Sclerae: sclerae normal Chest: Chest palpation & inspection: normal inspection of the chest Resp: Other: scattered wheezing, diminished Effort & Inspection: labored Cardio: Rate: regular rate Rhythm: abnormal rhythm irregularly irregular GI: Palpation (GI): Soft to palpation and nontender Neuro: General: patient oriented x3 Cranial nerves: Yes CN's II-XII intact bilaterally and Yes Bilaterally intact EOM present Extrem: Other: no edema Objective Data Current Medications Generic Name Dose Route Start Last Admin Trade Name Freq PRN Reason Stop Dose Admin Acetaminophen 650 mg 02/07/21 01:16 Acetaminophen 325 Mg Tablet PO Q6H PRN Pain, Mild (Pain Scale 1-3) Aspirin 81 mg 02/08/21 09:00 Aspirin Enteric Coated 81 Mg Tablet.Dr PO DAILY [facility] Atorvastatin Calcium 20 mg 02/08/21 09:00 Atorvastatin Calcium 20 Mg Tablet PO DAILY [facility] Clopidogrel Bisulfate 75 mg 02/08/21 09:00 Clopidogrel Bisulfate 75 Mg Tablet PO DAILY [facility] Digoxin 0.125 mg 02/07/21 12:05 02/07/21 12:22 Digoxin 0.125 Mg Tablet PO 0.125 mg DAILY [facility] Administration Docusate Sodium 100 mg 02/07/21 01:16 Docusate Sodium 100 Mg Capsule PO DAILY PRN Constipation Enoxaparin Sodium 40 mg 02/07/21 02:00 02/07/21 02:13 Enoxaparin Sodium 40 Mg/0.4 Ml Syringe SUBCUT 40 mg Q24H JASPAL Administration Folic Acid 1 mg 02/08/21 09:00 Folic Acid 1 Mg Tablet PO DAILY [facility] Furosemide 40 mg 02/07/21 08:00 02/07/21 08:40 Furosemide 40 Mg/4 Ml Vial IVPUSH 40 mg DAILY@0800 [facility] Administration Protocol Hydrocortisone 1 appl 02/07/21 09:54 Hydrocortisone 1 % Cream 28.35 Gm Tube TOPICAL DAILY PRN itching rash Protocol Ceftriaxone Sodium 1 gm/ 50 mls @ 100 mls/hr 02/08/21 00:00 Sodium Chloride IV Q24H [facility] Azithromycin 500 mg/ Sodium 250 mls @ 125 mls/hr 02/08/21 01:00 Chloride IV Q24H [facility] Ipratropium [place] 0.5 mg 02/07/21 12:00 02/07/21 12:10 Ipratropium [place] 0.5 Mg/2.5 Ml Solution INHALE Not Given RQ4H WHILE AWAKE [facility] Levalbuterol HCl 1.25 mg 02/07/21 12:00 02/07/21 12:10 Levalbuterol Hcl 1.25 Mg/0.5 Ml Vial.Neb INHALE Not Given RQ4H WHILE AWAKE [facility] Methylprednisolone Sodium Succinate 40 mg 02/07/21 02:00 02/07/21 02:57 Methylprednisolone Sod Succ 40 Mg/Ml Vial IVPUSH 40 mg Q12H [facility] Administration Metoprolol Tartrate 100 mg 02/07/21 12:05 02/07/21 12:22 Metoprolol Tartrate 100 Mg Tablet PO 100 mg BID [facility] Administration Protocol Nicotine 14 mg 02/07/21 09:00 02/07/21 08:40 Nicotine 14 Mg Patch.Td24 TRANSDERMA 14 mg DAILY [facility] Administration Ondansetron HCl 4 mg 02/07/21 01:16 Ondansetron Hcl 4 Mg/2 Ml Vial IVPUSH Q8H PRN Nausea and Vomiting Pharmacy Consult 1 each 02/07/21 09:14 Consult Rx Perform Med Rec MISCELLANE ONCE PRN Consult order Sodium Chloride 3 ml 02/07/21 01:16 02/07/21 08:43 0.9 % Sodium Chloride Flush 3 Ml Syringe IVFLUSH 3 ml QSHIFT [facility] Administration Thiamine HCl 100 mg 02/08/21 09:00 Thiamine Hcl 100 Mg Tablet PO DAILY [facility] Vitamin D 25 mcg 02/08/21 09:00 Cholecalciferol (Vitamin D3) 25 Mcg Tablet PO DAILY [facility] Labs CBC & Chem 7: 02/07/21 04:26 02/07/21 04:26 Assessment and Plan (1) Acute exacerbation of chronic obstructive airways disease: Status: Acute (2) Congestive heart failure: Status: Acute Assessment and Plan: This is a 65-year-old male with past medical history of COPD, CAD status post CABG, CHF, alcohol abuse, COPD, paroxysmal AFib on digoxin who presented to the emergency department with increasing shortness of breath found to have CHF, COPD, pneumonia now with atrial fibrillation with rapid ventricular response. AFib with RVR - will give home dose of metoprolol, and digoxin and monitor closely. if no improvement will give IV diltiazem - not on anticoagulation due to alcohol abuse and noncompliance -cardiology consult Dyspnea likely multifactorial secondary to COPD, pneumonia. No documented hypoxia. On p.r.n. oxygen at baseline - will treat for above IV antibiotics, Lasix, steroids - monitor respiratory status, titrate O2 as tolerated community-acquired pneumonia - COVID-19 negative - IV ceftriaxone, azithromycin started 02/06 - follow cultures COPD exacerbation - IV antibiotics as above -continue Solu-Medrol -will change updraft to Xopenex and ipratropium due to tachycardia -pulmonary consult Alcohol use disorder No evidence of alcohol withdrawal at this time -monitor on CIWA -continue thiamine & folic acid supplementation HFpEF Although BNP elevated does not appear to be in acute exacerbation at this time. Not on Lasix at home -will start p.o. Lasix 40 daily and DC IV Lasix -repeat ECHO pending Hypomagnesemia -replaced. follow Elevated lactic acid Secondary to breathing treatments not sepsis CAD -continue aspirin, Plavix, statin Tobacco dependence Smoking cessation advised -NRT DVT prophylaxis: Lovenox attending: Dr. perrin
[2021-02-07] MEDS: Ipratropium Bromide 0.5 MG/2.5 ML SOLUTION INHALE ×2 (15:37→19:50)
[2021-02-07] MEDS: dilTIAZem HCL 50 MG/10 ML VIAL 10 MG IVPUSH (18:21)
[2021-02-07] MEDS: Hydrocortisone 1 % Cream 28.35 GM TUBE 1 APPL TOPICAL (22:22)
[2021-02-08] VITALS (12 sets, daily range): BP systolic 110–122; BP diastolic 66–83; PULSE 90–130; RESP 16–20; TEMP 36.3–36.6; O2SAT 92–97
[2021-02-08] MEDS: cefTRIAXone sodium 1 GM in 0.9 % Sodium Chloride 50 ML IV (00:52)
[2021-02-08] MEDS: Azithromycin 500 MG in 0.9 % Sodium Chloride 250 ML 125 MG IV (01:46)
[2021-02-08] MEDS: methylPREDNISolone Sod Succ 40 MG/ML VIAL IVPUSH ×2 (01:46→13:54)
[2021-02-08] MEDS: Enoxaparin Sodium 40 MG/0.4 ML SYRINGE SUBCUT (01:46)
[2021-02-08 06:48] LABS: Hematocrit 33.6 % (42-52); Hemoglobin 10.9 g/dl (14.0-18.0); Mean Corpuscular HGB Conc 32.4 g/dl (31.0-36.0); Mean Corpuscular Hemoglobin 27.3 pg (27.0-33.0); Mean Platelet Volume 10.9 fL (9.4-12.4); Platelet Count 258 X10*3/uL (160-400); Red Cell Distribution Width 18.5 % (11.0-16.0); White Blood Count 10.5 X10*3/uL (4.8-10.8)
[2021-02-08 07:05] LABS: Anion Gap 12 (12-20); Blood Urea Nitrogen 22 mg/dL (9-16); Calcium 8.9 mg/dL (8.4-10.2); Carbon Dioxide 34 mmol/L (22-29); Chloride 97 mmol/L (96-108); Creatinine Clr Calc Pharmacy 75.3; Estimated Glomerular Filt Rate > 60; Glucose Random 136 mg/dL (60-115); Magnesium 1.5 mg/dL (1.6-2.6); Potassium 3.8 mmol/L (3.3-5.1); Sodium 139 mmol/L (135-145)
[2021-02-08] MEDS: Ipratropium Bromide 0.5 MG/2.5 ML SOLUTION INHALE ×4 (07:46→19:48)
[2021-02-08] MEDS: Cholecalciferol (Vitamin D3) 25 MCG TABLET PO (08:50)
[2021-02-08] MEDS: Furosemide 40 MG TABLET PO (08:50)
[2021-02-08] MEDS: Thiamine HCL 100 MG TABLET PO (08:50)
[2021-02-08] MEDS: Folic Acid 1 MG TABLET PO (08:50)
[2021-02-08] MEDS: Magnesium Sulfate/H2O 2 GM/50 ML PIGGYBACK IV (08:50)
[2021-02-08] MEDS: Digoxin 0.125 MG TABLET PO (08:50)
[2021-02-08] MEDS: Metoprolol Tartrate 100 MG TABLET PO ×2 (08:50→21:07)
[2021-02-08] MEDS: Clopidogrel Bisulfate 75 MG TABLET PO (08:50)
[2021-02-08] MEDS: Atorvastatin Calcium 20 MG TABLET PO (08:51)
[2021-02-08] MEDS: Nicotine 14 MG PATCH.TD24 TRANSDERMA (08:51)
[2021-02-08] MEDS: 0.9 % Sodium Chloride Flush 3 ML SYRINGE IVFLUSH ×3 (08:51→21:08)
[2021-02-08] MEDS: Aspirin Enteric Coated 81 MG TABLET.DR PO (08:51)
--- NOTE | 2021-02-08 11:14 | P.PNIM_ITS ---
Subjective Subjective Date of Service: 02/08/21 <EDELMIRA Grant - Last Filed: 02/08/21 11:22> 02/08/21 <Jose Chanel MD - Last Filed: 02/08/21 18:51> Interval History: seen in follow up for COPD/PNA; afib reports improvement in breathing, ongoing dry cough denies fever, chills HR improved this am. <EDELMIRA Grant - Last Filed: 02/08/21 11:22> Review of Systems Review of Systems: Yes all other systems are reviewed and are negative <EDELMIRA Grant - Last Filed: 02/08/21 11:22> Constitutional Constitutional: Denies chills and Denies fever(s) <EDELMIRA Grant - Last Filed: 02/08/21 11:22> Cardiovascular Cardiovascular: Denies chest pain <EDELMIRA Garnt - Last Filed: 02/08/21 11:22> Respiratory Respiratory: Reports cough <EDELMIRA Grant - Last Filed: 02/08/21 11:22> Gastrointestinal Gastrointestinal: Denies abdominal pain <EDELMIRA Grant - Last Filed: 02/08/21 11:22> Physical Exam Vital Signs: Vital Signs: Last Vital Signs Temp 97.9 F 02/08/21 07:38 Pulse 91 02/08/21 11:09 Resp 20 02/08/21 07:38 BP 119/73 02/08/21 08:50 Pulse Ox 97 02/08/21 07:38 Body Mass Index 19.5 <EDELMIRA Grant - Last Filed: 02/08/21 11:22> Const: General: alert, awake and ill appearing <EDELMIRA Grant - Last Filed: 02/08/21 11:22> Nutritional Appearance: thin <EDELMIRA Grant - Last Filed: 02/08/21 11:22> Orientation/consciousness: patient oriented x3 <EDELMIRA Grant - Last Filed: 02/08/21 11:22> HENMT: Head: Yes normocephalic and Yes atraumatic <EDELMIRA Grant - Last Filed: 02/08/21 11:22> Eyes: Sclerae: sclerae normal <EDELMIRA Grant - Last Filed: 02/08/21 11:22> Chest: Chest palpation & inspection: normal inspection of the chest <EDELMIRA Grant - Last Filed: 02/08/21 11:22> Resp: Other: scattered wheezing, diminished <EDELMIRA Grant - Last Filed: 02/08/21 11:22> Effort & Inspection: labored <EDELMIRA Grant - Last Filed: 02/08/21 11:22> Cardio: Rate: regular rate <EDELMIRA Grant - Last Filed: 02/08/21 11:22> Rhythm: abnormal rhythm irregularly irregular <EDELMIRA Grant - Last Filed: 02/08/21 11:22> GI: Palpation (GI): Soft to palpation and nontender <EDELMIRA Grant - Last Filed: 02/08/21 11:22> Neuro: General: patient oriented x3 <EDELMIRA Grant - Last Filed: 02/08/21 11:22> Cranial nerves: Yes CN's II-XII intact bilaterally and Yes Bilaterally intact EOM present <EDELMIRA Grant - Last Filed: 02/08/21 11:22> Extrem: Other: no edema <EDELMIRA Grant Last Filed: 02/08/21 11:22> Objective Data Current Medications Generic Name Dose Route Start Last Admin Trade Name Justin PRN Reason Stop Dose Admin Acetaminophen 650 mg 02/07/21 01:16 Acetaminophen 325 Mg Tablet PO Q6H PRN Pain, Mild (Pain Scale 1-3) Aspirin 81 mg 02/08/21 09:00 02/08/21 08:51 Aspirin Enteric Coated 81 Mg Tablet. PO 81 mg DAILY JASPAL Administration Atorvastatin Calcium 20 mg 02/08/21 09:00 02/08/21 08:51 Atorvastatin Calcium 20 Mg Tablet PO 20 mg DAILY JASPAL Administration Clopidogrel Bisulfate 75 mg 02/08/21 09:00 02/08/21 08:50 Clopidogrel Bisulfate 75 Mg Tablet PO 75 mg DAILY JASPAL Administration Digoxin 0.125 mg 02/07/21 12:05 02/08/21 08:50 Digoxin 0.125 Mg Tablet PO 0.125 mg DAILY JASPAL Administration Docusate Sodium 100 mg 02/07/21 01:16 Docusate Sodium 100 Mg Capsule PO DAILY PRN Constipation Enoxaparin Sodium 40 mg 02/07/21 02:00 02/08/21 01:46 Enoxaparin Sodium 40 Mg/0.4 Ml Syringe SUBCUT 40 mg Q24H JASPAL Administration Folic Acid 1 mg 02/08/21 09:00 02/08/21 08:50 Folic Acid 1 Mg Tablet PO 1 mg DAILY JASPAL Administration Furosemide 40 mg 02/08/21 09:00 02/08/21 08:50 Furosemide 40 Mg Tablet PO 40 mg DAILY JASPAL Administration Protocol Hydrocortisone 1 appl 02/07/21 09:54 02/07/21 22:22 Hydrocortisone 1 % Cream 28.35 Gm Tube TOPICAL 1 appl DAILY PRN Administration itching rash Protocol Ceftriaxone Sodium 1 gm/ 50 mls @ 100 mls/hr 02/08/21 00:00 02/08/21 01:35 Sodium Chloride IV Infused Q24H JASPAL Infusion Azithromycin 500 mg/ Sodium 250 mls @ 125 mls/hr 02/08/21 01:00 02/08/21 03:55 Chloride IV Infused Q24H JASPAL Infusion Ipratropium [place] 0.5 mg 02/07/21 12:00 02/08/21 11:08 Ipratropium [place] 0.5 Mg/2.5 Ml Solution INHALE 0.5 mg RQ4H WHILE AWAKE JASPAL Administration Levalbuterol HCl 1.25 mg 02/07/21 12:00 02/08/21 11:08 Levalbuterol Hcl 1.25 Mg/0.5 Ml Vial.Neb INHALE 1.25 mg RQ4H WHILE AWAKE JASPAL Administration Methylprednisolone Sodium Succinate 40 mg 02/07/21 02:00 02/08/21 01:46 Methylprednisolone Sod Succ 40 Mg/Ml Vial IVPUSH 40 mg Q12H JASPAL Administration Metoprolol Tartrate 100 mg 02/07/21 12:05 02/08/21 08:50 Metoprolol Tartrate 100 Mg Tablet PO 100 mg BID JASPAL Administration Protocol Nicotine 14 mg 02/07/21 09:00 02/08/21 08:51 Nicotine 14 Mg Patch.Td24 TRANSDERMA 14 mg DAILY JASPAL Administration Ondansetron HCl 4 mg 02/07/21 01:16 Ondansetron Hcl 4 Mg/2 Ml Vial IVPUSH Q8H PRN Nausea and Vomiting Pharmacy Consult 1 each 02/07/21 09:14 Consult Rx Perform Med Rec MISCELLANE ONCE PRN Consult order Sodium Chloride 3 ml 02/07/21 01:16 02/08/21 08:51 0.9 % Sodium Chloride Flush 3 Ml Syringe IVFLUSH 3 ml QSHIFT JASPAL Administration Thiamine HCl 100 mg 02/08/21 09:00 02/08/21 08:50 Thiamine Hcl 100 Mg Tablet PO 100 mg DAILY JASPAL Administration Vitamin D 25 mcg 02/08/21 09:00 02/08/21 08:50 Cholecalciferol (Vitamin D3) 25 Mcg Tablet PO 25 mcg DAILY JASPAL Administration <EDELMIRA Grant - Last Filed: 02/08/21 11:22> Labs CBC & Chem 7: : 02/08/21 06:13 02/08/21 06:13 <EDELMIRA Grant - Last Filed: 02/08/21 11:22> Microbiology Microbiology Results: Microbiology 02/06/21 20:56 Blood - Venous Blood Culture - Preliminary No growth after 24 hours. 02/06/21 20:56 Blood - Venous Blood Culture - Preliminary No growth after 24 hours. <EDELMIRA Grant - Last Filed: 02/08/21 11:22> Assessment and Plan (1) Acute exacerbation of chronic obstructive airways disease: Status: Acute <EDELMIRA Grant - Last Filed: 02/08/21 11:22> (2) Congestive heart failure: Status: Acute <EDELMIRA Grant - Last Filed: 02/08/21 11:22> (3) CHF exacerbation: Status: Acute <EDELMIRA Grant - Last Filed: 02/08/21 11:22> Assessment and Plan: This is a 65-year-old male with past medical history of COPD, CAD status post CABG, CHF, alcohol abuse, COPD, paroxysmal AFib on digoxin who presented to the emergency department with increasing shortness of breath found to have CHF, COPD, pneumonia now with atrial fibrillation with rapid ventricular response. AFib with RVR HR improved this am. seems labile - Continue metoprolol, and digoxin and monitor closely. - not on anticoagulation due to alcohol abuse and noncompliance - cardiology consult pending Dyspnea likely multifactorial secondary to COPD, pneumonia. No documented hypoxia. On p.r.n. oxygen at baseline - will treat for above IV antibiotics, Lasix, steroids - monitor respiratory status, titrate O2 as tolerated community-acquired pneumonia afebrile, no leukocytosis - COVID-19 negative - IV ceftriaxone, azithromycin started 02/06, likely change to po in am - BCx neg x 24 hours COPD exacerbation -IV antibiotics as above -continue Solu-Medrol, likely change to po in am -will change updraft to Xopenex and ipratropium due to tachycardia -pulmonary consult pending Alcohol use disorder No evidence of alcohol withdrawal at this time -monitor on CIWA -continue thiamine & folic acid supplementation HFpEF Although BNP elevated does not appear to be in acute exacerbation at this time. Not on Lasix at home -will start p.o. Lasix 40 daily -repeat ECHO pending Hypomagnesemia. 1.5 today -replace & follow Elevated lactic acid. Resolved. Secondary to breathing treatments not sepsis CAD -continue aspirin, Plavix, statin Tobacco dependence Smoking cessation advised -NRT DVT prophylaxis: Lovenox attending: Dr. Chanel <EDELMIRA Grant - Last Filed: 02/08/21 11:22> I saw and examined the person and discuss it with the mid-level and I agree with assessment and plan as outlined above. <Jose Chanel MD - Last Filed: 02/08/21 18:51>
--- NOTE | 2021-02-08 12:51 | PM.CNCAR ---
History of Present Illness History of Present Illness Date of Service: 02/08/21 Consult reason: congestive heart failure Chief complaint: COPD, PNA, CHF Narrative: This is a cardiology consultation regarding congestive heart failure. Patient has a history of coronary disease status post bypass surgery, paroxysmal atrial fibrillation, congestive heart failure, COPD, alcohol abuse and noncompliance. Current admission is for increasing shortness of breath and hypoxia into the 80s. In the last few days he has been having some cough, minimal sputum production but no chest pain or other symptoms. No significant lower extremity swelling. We have been asked to see him for possible CHF exacerbation. His last appointment was 2 months ago. At that time there was mention of fact that he was drinking vodka daily as well as smoking heavily. Per the same note, he was apparently taken off Multaq and digoxin was added. It was felt that his rate control was difficult because of continued alcohol abuse. Review of Systems Review of Systems: Yes all other systems are reviewed and are negative Cardiovascular: Cardiovascular: Reports as per HPI, Reports no additional cardiovascular complaints, Denies acrocyanosis, Denies cool extremities, Denies painful fingertips, Denies chest pain, Denies chest pain at rest, Denies diaphoresis, Denies syncope, Denies irregular heart rhythm, Denies claudication, Denies leg edema, Denies lightheadedness, Denies palpitations and Reports dyspnea Respiratory: Respiratory: Reports dyspnea Neurologic: Denies syncope Endocrine: Endocrine: Denies palpitations [facility] Past Medical History Medical History (Updated 02/08/21 @ 12:57 by Walter Richardson MD) Alcohol abuse Atherosclerotic cardiovascular disease CAD (coronary artery disease) COPD (chronic obstructive pulmonary disease) History of ischemic cardiomyopathy Hypercholesteremia Myocardial infarction Paroxysmal atrial fibrillation Tobacco abuse Surgical History Surgical History H/O heart bypass surgery Social History Social History Household Members: Family Household Members Other:: brother, daughter and son in law, grandchildren Housing: House Do you presently have visiting nurse or other home services: No Alcohol intake: current Alcohol intake frequency: 3 or more drinks per day Alcohol type: hard liquor Smoking Status: Current every day smoker Tobacco Type: Cigarette Packs Per Day: 1 Cigarettes Per Day: 20.0 Years Smoked: 40 Smoked in Last 30 Days: Yes Patient Interested in Nicotine Replacement: Yes Patient Given Instructions on How to Stop Smoking: Yes Date Education Initiated: 02/07/21 Second Hand Smoke Exposure: Yes Use of substances other than those prescribed or required for medical reasons: No Currently Displaying Signs/Symptoms of Drug Intoxication Withdrawal: No Have you been hit, kicked, punched, or otherwise hurt by someone within the past year? If so, by whom?: No Do you feel safe in your current relationship?: Yes Is there a partner from a previous relationship who is making you feel unsafe now?: No Are you made to feel afraid or neglected: No Advance Directives: Yes Advance Directives on File: Yes Advance Directives Date on File: 11/08/20 Do you have thoughts of harming others: None Do you have a plan to hurt others: No Plan Recently lost weight without trying: No Nutrition Risks: Poor intake 0-25% >4 days Poor oral hygiene: No service: No Current occupational status: retired [employer] Allergies Allergy/AdvReac Type Severity Reaction Status Date / Time No Known Allergies Allergy Verified 11/05/20 14:39 [No Known Allergies*] Active Medications: Current Medications Generic Name Dose Route Start Last Admin Trade Name Freq PRN Reason Stop Dose Admin Acetaminophen 650 mg 02/07/21 01:16 Acetaminophen 325 Mg Tablet PO Q6H PRN Pain, Mild (Pain Scale 1-3) Aspirin 81 mg 02/08/21 09:00 02/08/21 08:51 Aspirin Enteric Coated 81 Mg Tablet. PO 81 mg DAILY JASPAL Administration Atorvastatin Calcium 20 mg 02/08/21 09:00 02/08/21 08:51 Atorvastatin Calcium 20 Mg Tablet PO 20 mg DAILY JASPAL Administration Clopidogrel Bisulfate 75 mg 02/08/21 09:00 02/08/21 08:50 Clopidogrel Bisulfate 75 Mg Tablet PO 75 mg DAILY JASPAL Administration Digoxin 0.125 mg 02/07/21 12:05 02/08/21 08:50 Digoxin 0.125 Mg Tablet PO 0.125 mg DAILY JASPAL Administration Docusate Sodium 100 mg 02/07/21 01:16 Docusate Sodium 100 Mg Capsule PO DAILY PRN Constipation Enoxaparin Sodium 40 mg 02/07/21 02:00 02/08/21 01:46 Enoxaparin Sodium 40 Mg/0.4 Ml Syringe SUBCUT 40 mg Q24H JASPAL Administration Folic Acid 1 mg 02/08/21 09:00 02/08/21 08:50 Folic Acid 1 Mg Tablet PO 1 mg DAILY JASPAL Administration Furosemide 40 mg 02/08/21 09:00 02/08/21 08:50 Furosemide 40 Mg Tablet PO 40 mg DAILY JASPAL Administration Protocol Hydrocortisone 1 appl 02/07/21 09:54 02/07/21 22:22 Hydrocortisone 1 % Cream 28.35 Gm Tube TOPICAL 1 appl DAILY PRN Administration itching rash Protocol Ceftriaxone Sodium 1 gm/ 50 mls @ 100 mls/hr 02/08/21 00:00 02/08/21 01:35 Sodium Chloride IV Infused Q24H JASPAL Infusion Azithromycin 500 mg/ Sodium 250 mls @ 125 mls/hr 02/08/21 01:00 02/08/21 03:55 Chloride IV Infused Q24H JASPAL Infusion Ipratropium [place] 0.5 mg 02/07/21 12:00 02/08/21 11:08 Ipratropium [place] 0.5 Mg/2.5 Ml Solution INHALE 0.5 mg RQ4H WHILE AWAKE JASPAL Administration Levalbuterol HCl 1.25 mg 02/07/21 12:00 02/08/21 11:08 Levalbuterol Hcl 1.25 Mg/0.5 Ml Vial.Neb INHALE 1.25 mg RQ4H WHILE AWAKE JASPAL Administration Methylprednisolone Sodium Succinate 40 mg 02/07/21 02:00 02/08/21 01:46 Methylprednisolone Sod Succ 40 Mg/Ml Vial IVPUSH 40 mg Q12H JASPAL Administration Metoprolol Tartrate 100 mg 02/07/21 12:05 02/08/21 08:50 Metoprolol Tartrate 100 Mg Tablet PO 100 mg BID JASPAL Administration Protocol Nicotine 14 mg 02/07/21 09:00 02/08/21 08:51 Nicotine 14 Mg Patch.Td24 TRANSDERMA 14 mg DAILY JASPAL Administration Ondansetron HCl 4 mg 02/07/21 01:16 Ondansetron Hcl 4 Mg/2 Ml Vial IVPUSH Q8H PRN Nausea and Vomiting Pharmacy Consult 1 each 02/07/21 09:14 Consult Rx Perform Med Rec MISCELLANE ONCE PRN Consult order Sodium Chloride 3 ml 02/07/21 01:16 02/08/21 08:51 0.9 % Sodium Chloride Flush 3 Ml Syringe IVFLUSH 3 ml QSHIFT JASPAL Administration Thiamine HCl 100 mg 02/08/21 09:00 02/08/21 08:50 Thiamine Hcl 100 Mg Tablet PO 100 mg DAILY JASPAL Administration Vitamin D 25 mcg 02/08/21 09:00 02/08/21 08:50 Cholecalciferol (Vitamin D3) 25 Mcg Tablet PO 25 mcg DAILY JASPAL Administration Home Medications Medication Instructions Recorded Confirmed Last Taken Type albuterol sulfate 90 mcg/actuation 2 puff INHALATION Q6H PRN 08/12/20 02/07/21 Unknown History aerosol inhaler aspirin 81 mg tablet,delayed 81 mg PO DAILY 08/12/20 02/07/21 Unknown History release atorvastatin 20 mg tablet 20 mg PO DAILY 08/12/20 02/07/21 Unknown History tiotropium bromide 18 mcg capsule 1 cap INHALATION DAILY 08/12/20 02/07/21 Unknown History with inhalation device thiamine HCl (vitamin B1) [Vitamin 100 mg PO DAILY 11/05/20 02/07/21 Unknown History B-1] cholecalciferol (vitamin D3) 25 mcg PO DAILY 11/07/20 02/07/21 Unknown History [Vitamin D3] folic acid 1 mg PO DAILY 11/07/20 02/07/21 Unknown History clopidogrel 1 tab PO DAILY 02/07/21 02/07/21 Unknown History Physical Exam Vital Signs: Vital Signs: Last Vital Signs Temp 97.3 F 02/08/21 11:53 Pulse 101 H 02/08/21 11:53 Resp 18 02/08/21 11:53 BP 118/79 02/08/21 11:53 Pulse Ox 96 02/08/21 11:53 Body Mass Index 19.5 Const: General: cooperative, comfortable and no acute distress Orientation/consciousness: patient oriented x3 HENMT: Other: Unremarkable Neck: Neck: Yes normal visual inspection Chest: Chest palpation & inspection: normal inspection of the chest Resp: Auscultation: clear to auscultation bilaterally, no crackles and rhonchi Cardio: Jugular venous distension: no JVD Palpation: normal PMI Heart sounds: S1 normal heart sound present, S2 normal heart sound present, no gallops, no murmurs and no rubs GI: Palpation (GI): Soft to palpation Back/Spine/Pelvis: Other: unremarkable Skin: General skin exam: no rashes or lesions noted Neuro: General: patient oriented x3 Extrem: General: Yes no clubbing, cyanosis or edema Psych: Mental Status: mental status grossly normal Results Labs and Meds Result diagrams: 02/08/21 06:13 02/08/21 06:13 Lab results: Laboratory Results - last 24 hr 02/08/21 02/08/21 06:13 06:13 WBC 10.5 RBC 4.00 L Hgb 10.9 L Hct 33.6 L MCV 84.0 MCH 27.3 MCHC 32.4 RDW 18.5 H Plt Count 258 MPV 10.9 Absolute Nucleated RBC 0.000 Nucleated RBC % (auto) 0.0 Sodium 139 Potassium 3.8 Chloride 97 Carbon Dioxide 34 H Anion Gap 12 BUN 22 H Creatinine 0.84 Estim Creat Clear Calc 75.3 Estimated GFR > 60 Random Glucose 136 H Calcium 8.9 Magnesium 1.5 L ECG Attestation: I personally reviewed and interpreted this ECG as follows: Interpretation: EKG from S today shows atrial fibrillation at a rate of 143/Min with inferior as well as lateral ST depression. EKG from 06 of February shows atrial fibrillation at 93/Min with PVCs or aberrant conduction. Assessment and Plan (1) Persistent atrial fibrillation: Status: Acute (2) Atherosclerotic cardiovascular disease: Status: Acute (3) Status post aorto-coronary artery bypass graft: Status: Acute (4) Acute exacerbation of chronic obstructive airways disease: Status: Acute (5) Tobacco abuse: Status: Acute (6) Alcohol abuse: Status: Acute Laboratory data reviewed. Cardiac BNP is elevated to 1700 but clinically in, he does not appear much volume overloaded. Troponins are within normal limits at 21 and 13. Overall, most likely all COPD and much less likely to be heart failure component. With regard to the atrial fibrillation, he is already on a combination of metoprolol 100 b.i.d. and digoxin 125 mcg daily. His blood pressure is 118/79 mm Hg. I doubt if he will tolerate any higher doses of beta-blockers. Because of continued alcohol abuse and advanced lung disease, it will be difficult to get optimal heart rates. As long as it is not too high, may have to accepted. Based on the markedly high cardiac BNP, reasonable to get a repeat echocardiogram on Wednesday.
--- NOTE | 2021-02-08 22:01 | P.CONPL_ITS ---
History of Present Illness History of Present Illness Consult date: 02/08/21 Chief complaint: COPD, PNA, CHF Narrative: This is a 65-year-old male with past medical history of COPD, CAD status post CABG, CHF, alcohol abuse, COPD, paroxysmal AFib on digoxin, initial presents to the hospital in November 2020 and briefly admitted to the hospital with COPD and Afib, then on 02/05/2021 admitted under obeservation, now presenting with progressively worsening shortness of breath and hypoxia. The patient is a poor historian. Patient reports that he has had the symptoms for the past 1-2 weeks, he has some cough, minimal sputum production, no chest pain, no fever or chills, no abdominal pain nausea or vomiting, diarrhea constipation. No urinary symptoms. He denies any lower extremity edema. Feels weakness and fatigue. Chest CT shows severe pulmonary emphysema and chronic thickening of bronchial coronel, consistent with obstructive pulmonary disease. Bronchitis. Mild ground- glass opacity in the left lower lobe and trace left pleural effusion whixh appears to be consistent with a lower respiratory infectious process. Review of Systems Constitutional: Constitutional: Denies night sweats ENT: Denies change in voice, Denies lip swelling, Denies mouth pain, Reports nasal congestion, Reports nasal discharge and Denies tongue swelling Cardiovascular: Cardiovascular: Denies chest pain and Reports dyspnea Respiratory: Respiratory: Reports chest congestion, Reports cough, Denies hemoptysis and Reports dyspnea Gastrointestinal: Gastrointestinal: Denies abdominal pain Musculoskeletal: Musculoskeletal: Denies no additional musculoskeletal complaints Neurologic: Denies Neuro-related abnormal movements Psychiatric: Psychiatric: Denies no additional psychiatric complaints Hematologic/Lymphatic: Hematologic/Lymphatic: Denies easy bleeding and Denies lymphadenopathy Allergic/Immunologic: Allergic/Immunologic: Denies lip swelling and Denies tongue swelling [facility] Past Medical History Medical History (Updated 02/08/21 @ 22:08 by Gilbert Christian MD) Alcohol abuse Atherosclerotic cardiovascular disease CAD (coronary artery disease) Chronic respiratory failure COPD (chronic obstructive pulmonary disease) History of ischemic cardiomyopathy Hypercholesteremia Myocardial infarction Paroxysmal atrial fibrillation Tobacco abuse Surgical History Surgical History H/O heart bypass surgery Social History Social History Household Members: Family Household Members Other:: brother, daughter and son in law, grandchildren Housing: House Do you presently have visiting nurse or other home services: No Alcohol intake: current Alcohol intake frequency: 3 or more drinks per day Alcohol type: hard liquor Smoking Status: Current every day smoker Tobacco Type: Cigarette Packs Per Day: 1 Cigarettes Per Day: 20.0 Years Smoked: 40 Smoked in Last 30 Days: Yes Patient Interested in Nicotine Replacement: Yes Patient Given Instructions on How to Stop Smoking: Yes Date Education Initiated: 02/07/21 Second Hand Smoke Exposure: Yes Use of substances other than those prescribed or required for medical reasons: No Currently Displaying Signs/Symptoms of Drug Intoxication Withdrawal: No Have you been hit, kicked, punched, or otherwise hurt by someone within the past year? If so, by whom?: No Do you feel safe in your current relationship?: Yes Is there a partner from a previous relationship who is making you feel unsafe now?: No Are you made to feel afraid or neglected: No Advance Directives: Yes Advance Directives on File: Yes Advance Directives Date on File: 11/08/20 Do you have thoughts of harming others: None Do you have a plan to hurt others: No Plan Recently lost weight without trying: No Nutrition Risks: Poor intake 0-25% >4 days Poor oral hygiene: No service: No Current occupational status: retired [employer] Allergies Allergy/AdvReac Type Severity Reaction Status Date / Time No Known Allergies Allergy Verified 11/05/20 14:39 [No Known Allergies*] Active Medications: Current Medications Generic Name Dose Route Start Last Admin Trade Name Damionq PRN Reason Stop Dose Admin Acetaminophen 650 mg 02/07/21 01:16 Acetaminophen 325 Mg Tablet PO Q6H PRN Pain, Mild (Pain Scale 1-3) Aspirin 81 mg 02/08/21 09:00 02/08/21 08:51 Aspirin Enteric Coated 81 Mg Tablet. PO 81 mg DAILY JASPAL Administration Atorvastatin Calcium 20 mg 02/08/21 09:00 02/08/21 08:51 Atorvastatin Calcium 20 Mg Tablet PO 20 mg DAILY JASPAL Administration Clopidogrel Bisulfate 75 mg 02/08/21 09:00 02/08/21 08:50 Clopidogrel Bisulfate 75 Mg Tablet PO 75 mg DAILY JASPAL Administration Digoxin 0.125 mg 02/07/21 12:05 02/08/21 08:50 Digoxin 0.125 Mg Tablet PO 0.125 mg DAILY JASPAL Administration Docusate Sodium 100 mg 02/07/21 01:16 Docusate Sodium 100 Mg Capsule PO DAILY PRN Constipation Enoxaparin Sodium 40 mg 02/07/21 02:00 02/08/21 01:46 Enoxaparin Sodium 40 Mg/0.4 Ml Syringe SUBCUT 40 mg Q24H JASPAL Administration Folic Acid 1 mg 02/08/21 09:00 02/08/21 08:50 Folic Acid 1 Mg Tablet PO 1 mg DAILY JASPAL Administration Furosemide 40 mg 02/08/21 09:00 02/08/21 08:50 Furosemide 40 Mg Tablet PO 40 mg DAILY JASPAL Administration Protocol Hydrocortisone 1 appl 02/07/21 09:54 02/07/21 22:22 Hydrocortisone 1 % Cream 28.35 Gm Tube TOPICAL 1 appl DAILY PRN Administration itching rash Protocol Ceftriaxone Sodium 1 gm/ 50 mls @ 100 mls/hr 02/08/21 00:00 02/08/21 01:35 Sodium Chloride IV Infused Q24H JASPAL Infusion Azithromycin 500 mg/ Sodium 250 mls @ 125 mls/hr 02/08/21 01:00 02/08/21 03:55 Chloride IV Infused Q24H JASPAL Infusion Ipratropium [place] 0.5 mg 02/07/21 12:00 02/08/21 19:48 Ipratropium [place] 0.5 Mg/2.5 Ml Solution INHALE 0.5 mg RQ4H WHILE AWAKE JASPAL Administration Levalbuterol HCl 1.25 mg 02/07/21 12:00 02/08/21 19:48 Levalbuterol Hcl 1.25 Mg/0.5 Ml Vial.Neb INHALE 1.25 mg RQ4H WHILE AWAKE JASPAL Administration Methylprednisolone Sodium Succinate 40 mg 02/07/21 02:00 02/08/21 13:54 Methylprednisolone Sod Succ 40 Mg/Ml Vial IVPUSH 40 mg Q12H JASPAL Administration Metoprolol Tartrate 100 mg 02/07/21 12:05 02/08/21 21:07 Metoprolol Tartrate 100 Mg Tablet PO 100 mg BID JASPAL Administration Protocol Nicotine 14 mg 02/07/21 09:00 02/08/21 08:51 Nicotine 14 Mg Patch.Td24 TRANSDERMA 14 mg DAILY JASPAL Administration Ondansetron HCl 4 mg 02/07/21 01:16 Ondansetron Hcl 4 Mg/2 Ml Vial IVPUSH Q8H PRN Nausea and Vomiting Pharmacy Consult 1 each 02/07/21 09:14 Consult Rx Perform Med Rec MISCELLANE ONCE PRN Consult order Sodium Chloride 3 ml 02/07/21 01:16 02/08/21 21:08 0.9 % Sodium Chloride Flush 3 Ml Syringe IVFLUSH 3 ml QSHIFT JASPAL Administration Thiamine HCl 100 mg 02/08/21 09:00 02/08/21 08:50 Thiamine Hcl 100 Mg Tablet PO 100 mg DAILY JASPAL Administration Vitamin D 25 mcg 02/08/21 09:00 02/08/21 08:50 Cholecalciferol (Vitamin D3) 25 Mcg Tablet PO 25 mcg DAILY JASPAL Administration Home Medications Medication Instructions Recorded Confirmed Last Taken Type albuterol sulfate 90 mcg/actuation 2 puff INHALATION Q6H PRN 08/12/20 02/07/21 Unknown History aerosol inhaler aspirin 81 mg tablet,delayed 81 mg PO DAILY 08/12/20 02/07/21 Unknown History release atorvastatin 20 mg tablet 20 mg PO DAILY 08/12/20 02/07/21 Unknown History tiotropium bromide 18 mcg capsule 1 cap INHALATION DAILY 08/12/20 02/07/21 Unknown History with inhalation device thiamine HCl (vitamin B1) [Vitamin 100 mg PO DAILY 11/05/20 02/07/21 Unknown History B-1] cholecalciferol (vitamin D3) 25 mcg PO DAILY 11/07/20 02/07/21 Unknown History [Vitamin D3] folic acid 1 mg PO DAILY 11/07/20 02/07/21 Unknown History clopidogrel 1 tab PO DAILY 02/07/21 02/07/21 Unknown History Physical Exam Vital Signs: Vital Signs: Last Vital Signs Temp 97.7 F 02/08/21 19:27 Pulse 90 02/08/21 21:07 Resp 16 02/08/21 19:27 BP 110/72 02/08/21 21:07 Pulse Ox 94 02/08/21 19:27 Body Mass Index 19.5 Const: General: alert and tired appearing Nutritional Appearance: underweight Eyes: Pupils: Equal, round and reactive pupils present Neck: Neck: Yes normal visual inspection, Yes full ROM and Yes no lymphadenopathy Chest: Chest palpation & inspection: normal inspection of the chest Resp: Auscultation: diminished lung sounds Cardio: Rate: regular rate Rhythm: regular rhythm Heart sounds: S1 normal heart sound present and S2 normal heart sound present GI: Palpation (GI): Soft to palpation and nontender Auscultation: normal bowel sounds Skin: General skin exam: rashes and/or lesions noted Neuro: Cranial nerves: Yes Equal, round and reactive pupils present Results Laboratory Findings CBC and BMP: 02/08/21 06:13 02/08/21 06:13 Abnormal lab findings: Abnormal Labs 02/06/21 02/06/21 02/06/21 21:06 21:06 21:06 WBC 4.4 L RBC 4.30 L Hgb 11.7 L Hct 37.2 L RDW 18.4 H Immature Gran % (Auto) 0.5 H Neut % (Auto) 84.1 H Lymph % (Auto) 9.9 L [place] % (Auto) Lymph # (Auto) 0.4 L Carbon Dioxide 31 H BUN 20 H Random Glucose 264 H D Lactic Acid 2.1 H* Magnesium Total Bilirubin 1.2 H B-Natriuretic Peptide Digoxin 02/06/21 02/07/21 02/07/21 21:06 00:01 04:26 WBC RBC 4.03 L Hgb 11.1 L Hct 34.9 L RDW 18.3 H Immature Gran % (Auto) Neut % (Auto) 76.0 H Lymph % (Auto) 11.1 L [place] % (Auto) 12.3 H Lymph # (Auto) 0.9 L Carbon Dioxide BUN Random Glucose Lactic Acid Magnesium Total Bilirubin B-Natriuretic Peptide 1711 H Digoxin 0.5 L 02/07/21 02/08/21 02/08/21 04:26 06:13 06:13 WBC RBC 4.00 L Hgb 10.9 L Hct 33.6 L RDW 18.5 H Immature Gran % (Auto) Neut % (Auto) Lymph % (Auto) [place] % (Auto) Lymph # (Auto) Carbon Dioxide 30 H 34 H BUN 18 H 22 H Random Glucose 130 H D 136 H Lactic Acid Magnesium 1.2 L* 1.5 L Total Bilirubin B-Natriuretic Peptide Digoxin Microbiology: Microbiology 02/06/21 20:56 Blood - Venous Blood Culture - Preliminary No growth after 24 hours. 02/06/21 20:56 Blood - Venous Blood Culture - Preliminary No growth after 24 hours. Assessment and Plan (1) COPD (chronic obstructive pulmonary disease): Qualifiers: COPD type: COPD with acute lower respiratory infection Qualified Code(s): J44.0 - Chronic obstructive pulmonary disease with (acute) lower respiratory infection Status: Acute (2) Chronic respiratory failure: Qualifiers: Respiratory failure complication: hypoxia and hypercapnia Qualified Code(s): J96.11 - Chronic respiratory failure with hypoxia; J96.12 - Chronic respiratory failure with hypercapnia Status: Acute (3) Tobacco abuse: Status: Acute Complate 8 day course of antibiotics Will request Legionella and strep urine ag Consider outpt therapy with azithromycin 250mg MWF for chronic bronchitis Please request Flutter valve for CPT NC O2 to keep pox 90-95% Add Breo and Spiriva for maintenance therapy Will arrange f/u with pulmonary as outpt
[2021-02-09] VITALS (15 sets, daily range): BP systolic 105–129; BP diastolic 61–92; PULSE 63–118; RESP 16–22; TEMP 36–36.8; O2SAT 16–98; BMI 19.7
[2021-02-09] MEDS: cefTRIAXone sodium 1 GM in 0.9 % Sodium Chloride 50 ML IV (01:31)
[2021-02-09] MEDS: methylPREDNISolone Sod Succ 40 MG/ML VIAL IVPUSH ×2 (02:06→20:23)
[2021-02-09] MEDS: Enoxaparin Sodium 40 MG/0.4 ML SYRINGE SUBCUT (02:06)
[2021-02-09] MEDS: Azithromycin 500 MG in 0.9 % Sodium Chloride 250 ML 125 MG IV (02:06)
[2021-02-09] MEDS: Fluticasone/Vilanterol 100/25 BLST.W.DEV 1 PUFF INHALE (07:30)
[2021-02-09 07:39] LABS: Hematocrit 38.7 % (42-52); Mean Corpuscular Hemoglobin 27.3 pg (27.0-33.0); Mean Platelet Volume 11.2 fL (9.4-12.4); Platelet Count 255 X10*3/uL (160-400); Red Cell Distribution Width 19.1 % (11.0-16.0)
[2021-02-09 08:04] LABS: Anion Gap 13 (12-20); Blood Urea Nitrogen 26 mg/dL (9-16); Calcium 8.9 mg/dL (8.4-10.2); Carbon Dioxide 32 mmol/L (22-29); Chloride 97 mmol/L (96-108); Creatinine Clr Calc Pharmacy 72.6; Estimated Glomerular Filt Rate > 60; Glucose Random 129 mg/dL (60-115); Magnesium 1.8 mg/dL (1.6-2.6); Sodium 138 mmol/L (135-145)
[2021-02-09] MEDS: Thiamine HCL 100 MG TABLET PO (09:39)
[2021-02-09] MEDS: Nicotine 14 MG PATCH.TD24 TRANSDERMA (09:39)
[2021-02-09] MEDS: Furosemide 40 MG TABLET PO (09:39)
[2021-02-09] MEDS: Clopidogrel Bisulfate 75 MG TABLET PO (09:39)
[2021-02-09] MEDS: Cholecalciferol (Vitamin D3) 25 MCG TABLET PO (09:39)
[2021-02-09] MEDS: Aspirin Enteric Coated 81 MG TABLET.DR PO (09:39)
[2021-02-09] MEDS: Metoprolol Tartrate 100 MG TABLET PO ×2 (09:39→20:23)
[2021-02-09] MEDS: Digoxin 0.125 MG TABLET PO (09:39)
[2021-02-09] MEDS: Atorvastatin Calcium 20 MG TABLET PO (09:40)
[2021-02-09] MEDS: 0.9 % Sodium Chloride Flush 3 ML SYRINGE IVFLUSH ×2 (09:40→18:11)
[2021-02-09] MEDS: Folic Acid 1 MG TABLET PO (09:40)
--- NOTE | 2021-02-09 10:19 | P.PNIM_ITS ---
Subjective Subjective Date of Service: 02/09/21 <EDELMIRA Grant - Last Filed: 02/09/21 10:49> 02/09/21 <Jose Chanel MD - Last Filed: 02/09/21 14:59> Interval History: follow up for COPD/PNA seen and examined this morning Breathing better, still having dry cough HR has been highly variable although denies chest pain, palpitations. <EDELMIRA Grant - Last Filed: 02/09/21 10:49> Review of Systems Review of Systems: Yes all other systems are reviewed and are negative <EDELMIRA Grant - Last Filed: 02/09/21 10:49> Constitutional Constitutional: Denies chills and Denies fever(s) <EDELMIRA Grant - Last Filed: 02/09/21 10:49> Cardiovascular Cardiovascular: Denies chest pain and Denies palpitations <EDELMIRA Grant - Last Filed: 02/09/21 10:49> Respiratory Respiratory: Reports cough <EDELMIRA Grant - Last Filed: 02/09/21 10:49> Gastrointestinal Gastrointestinal: Denies abdominal pain <EDELMIRA Grant - Last Filed: 02/09/21 10:49> Endocrine Endocrine: Denies palpitations <EDELMIRA Grant - Last Filed: 02/09/21 10:49> Physical Exam Vital Signs: Vital Signs: Last Vital Signs Temp 98.3 F 02/09/21 08:00 Pulse 115 H 02/09/21 09:39 Resp 22 H 02/09/21 08:00 BP 115/62 02/09/21 09:39 Pulse Ox 95 02/09/21 08:00 Body Mass Index 19.7 <EDELMIRA Grant - Last Filed: 02/09/21 10:49> Const: General: alert, awake and ill appearing <EDELMIRA Grant - Last Filed: 02/09/21 10:49> Nutritional Appearance: thin <EDELMIRA Grant Last Filed: 02/09/21 10:49> Orientation/consciousness: patient oriented x3 <EDELMIRA Grant - Last Filed: 02/09/21 10:49> HENMT: Head: Yes normocephalic and Yes atraumatic <EDELMIRA Grant - Last Filed: 02/09/21 10:49> Eyes: Sclerae: sclerae normal <EDELMIRA Grant - Last Filed: 02/09/21 10:49> Chest: Chest palpation & inspection: normal inspection of the chest <EDELMIRA Grant - Last Filed: 02/09/21 10:49> Resp: Other: scattered wheezing, diminished <EDELMIRA Grant - Last Filed: 02/09/21 10:49> Effort & Inspection: labored <EDELMIRA Grant - Last Filed: 02/09/21 10:49> Cardio: Rate: regular rate <EDELMIRA Grant - Last Filed: 02/09/21 10:49> Rhythm: abnormal rhythm irregularly irregular <EDELMIRA Grant - Last Filed: 02/09/21 10:49> GI: Palpation (GI): Soft to palpation and nontender <EDELMIRA Grant - Last Filed: 02/09/21 10:49> Neuro: General: patient oriented x3 <EDELMIRA Grant - Last Filed: 02/09/21 10:49> Cranial nerves: Yes CN's II-XII intact bilaterally and Yes Bilaterally intact EOM present <EDELMIRA Grant Last Filed: 02/09/21 10:49> Extrem: Other: no edema <EDELMIRA Grant - Last Filed: 02/09/21 10:49> Objective Data Current Medications Generic Name Dose Route Start Last Admin Trade Name Freq PRN Reason Stop Dose Admin Acetaminophen 650 mg 02/07/21 01:16 Acetaminophen 325 Mg Tablet PO Q6H PRN Pain, Mild (Pain Scale 1-3) Aspirin 81 mg 02/08/21 09:00 02/09/21 09:39 Aspirin Enteric Coated 81 Mg Tablet. PO 81 mg DAILY JASPAL Administration Atorvastatin Calcium 20 mg 02/08/21 09:00 02/09/21 09:40 Atorvastatin Calcium 20 Mg Tablet PO 20 mg DAILY JASPAL Administration Clopidogrel Bisulfate 75 mg 02/08/21 09:00 02/09/21 09:39 Clopidogrel Bisulfate 75 Mg Tablet PO 75 mg DAILY JASPAL Administration Digoxin 0.125 mg 02/07/21 12:05 02/09/21 09:39 Digoxin 0.125 Mg Tablet PO 0.125 mg DAILY JASPAL Administration Diltiazem HCl 30 mg 02/09/21 10:14 Diltiazem Hcl 30 Mg Tablet PO BID JASPAL Protocol Docusate Sodium 100 mg 02/07/21 01:16 Docusate Sodium 100 Mg Capsule PO DAILY PRN Constipation Enoxaparin Sodium 40 mg 02/07/21 02:00 02/09/21 02:06 Enoxaparin Sodium 40 Mg/0.4 Ml Syringe SUBCUT 40 mg Q24H JASPAL Administration Fluticasone/Vilanterol 1 puff 02/09/21 08:00 02/09/21 07:30 Fluticasone/Vilanterol 100/25 Blst.W.Dev INHALE 1 puff RDAILY JASPAL Administration Folic Acid 1 mg 02/08/21 09:00 02/09/21 09:40 Folic Acid 1 Mg Tablet PO 1 mg DAILY JASPAL Administration Furosemide 40 mg 02/08/21 09:00 02/09/21 09:39 Furosemide 40 Mg Tablet PO 40 mg DAILY JASPAL Administration Protocol Hydrocortisone 1 appl 02/07/21 09:54 02/07/21 22:22 Hydrocortisone 1 % Cream 28.35 Gm Tube TOPICAL 1 appl DAILY PRN Administration itching rash Protocol Ceftriaxone Sodium 1 gm/ 50 mls @ 100 mls/hr 02/08/21 00:00 02/09/21 02:02 Sodium Chloride IV Infused Q24H JASPAL Infusion Azithromycin 500 mg/ Sodium 250 mls @ 125 mls/hr 02/08/21 01:00 02/09/21 04:10 Chloride IV Infused Q24H JASPAL Infusion Levalbuterol HCl 1.25 mg 02/07/21 12:00 02/09/21 07:30 Levalbuterol Hcl 1.25 Mg/0.5 Ml Vial.Neb INHALE 1.25 mg RQ4H WHILE AWAKE JASPAL Administration Methylprednisolone Sodium Succinate 40 mg 02/07/21 02:00 02/09/21 02:06 Methylprednisolone Sod Succ 40 Mg/Ml Vial IVPUSH 40 mg Q12H JASPAL Administration Metoprolol Tartrate 100 mg 02/07/21 12:05 02/09/21 09:39 Metoprolol Tartrate 100 Mg Tablet PO 100 mg BID JASPAL Administration Protocol Nicotine 14 mg 02/07/21 09:00 02/09/21 09:39 Nicotine 14 Mg Patch.Td24 TRANSDERMA 14 mg DAILY JASPAL Administration Ondansetron HCl 4 mg 02/07/21 01:16 Ondansetron Hcl 4 Mg/2 Ml Vial IVPUSH Q8H PRN Nausea and Vomiting Pharmacy Consult 1 each 02/07/21 09:14 Consult Rx Perform Med Rec MISCELLANE ONCE PRN Consult order Sodium Chloride 3 ml 02/07/21 01:16 02/09/21 09:40 0.9 % Sodium Chloride Flush 3 Ml Syringe IVFLUSH 3 ml QSHIFT JASPAL Administration Thiamine HCl 100 mg 02/08/21 09:00 02/09/21 09:39 Thiamine Hcl 100 Mg Tablet PO 100 mg DAILY JASPAL Administration Tiotropium [place] 1 puff 02/09/21 08:00 02/09/21 07:31 Tiotropium [place] 18 Mcg Cap.W.Dev INHALE 1 puff RDAILY JASPAL Administration Vitamin D 25 mcg 02/08/21 09:00 02/09/21 09:39 Cholecalciferol (Vitamin D3) 25 Mcg Tablet PO 25 mcg DAILY JASPAL Administration <EDELMIRA Grant - Last Filed: 02/09/21 10:49> Labs CBC & Chem 7: : 02/09/21 07:29 02/09/21 07:29 <EDELMIRA Grant - Last Filed: 02/09/21 10:49> Microbiology Microbiology Results: Microbiology 02/06/21 20:56 Blood - Venous Blood Culture - Preliminary No growth after 48 hours. 02/06/21 20:56 Blood - Venous Blood Culture - Preliminary No growth after 48 hours. <EDELMIRA Grant - Last Filed: 02/09/21 10:49> Assessment and Plan (1) COPD (chronic obstructive pulmonary disease): Status: Acute <EDELMIRA Grant Last Filed: 02/09/21 10:49> (2) Chronic respiratory failure: Status: Acute <EDELMIRA Grant Last Filed: 02/09/21 10:49> (3) Tobacco abuse: Status: Acute <EDELMIRA Grant - Last Filed: 02/09/21 10:49> Assessment and Plan: This is a 65-year-old male with past medical history of COPD, CAD status post CABG, CHF, alcohol abuse, COPD, paroxysmal AFib on digoxin who presented to the emergency department with increasing shortness of breath found to have CHF, COPD, pneumonia now with atrial fibrillation with rapid ventricular response. AFib with RVR HR up and down. Asmptomatic. - Continue metoprolol, and digoxin - seen by cardiology, will add cardizem low dose; HR may be difficult to control given underlying lung dz, etoh use. - not on anticoagulation due to alcohol abuse and noncompliance community-acquired pneumonia afebrile. leukocytosis likely r/t steroids - COVID-19 negative - IV ceftriaxone, azithromycin started 02/06, will change to po, pulm rec 8 day course of abx - BCx neg x 24 hours COPD exacerbation/chronic respiratory failure On 2L prn O2 at baseline -Continue antibiotics as above -continue Solu-Medrol, change to po in am -continue Xopenex and ipratropium due to tachycardia -seen by pulmonary, rec to add breo, spiriva, CPT; keep o2 between 90-95%; outpatient follow up Alcohol use disorder No evidence of alcohol withdrawal at this time -monitor on CIWA -continue thiamine & folic acid supplementation HFpEF Although BNP elevated does not appear to be in acute exacerbation at this time. Not on Lasix at home -will start p.o. Lasix 40 daily -repeat ECHO can be done as outpatient Hypomagnesemia. 1.5 today -replace & follow Elevated lactic acid. Resolved. Secondary to breathing treatments not sepsis CAD -continue aspirin, Plavix, statin Tobacco dependence Smoking cessation advised -NRT DVT prophylaxis: Lovenox Disposition: Pt sent to SNF from ED on 02/06 and then shortly after returned to ED. Patient prefers to returns home. Will get PT eval. Attending: Dr. Chanel <EDELMIRA Grant - Last Filed: 02/09/21 10:49>
[2021-02-09] MEDS: dilTIAZem HCL 30 MG TABLET PO (14:00)
[2021-02-10] VITALS (11 sets, daily range): BP systolic 103–136; BP diastolic 67–85; PULSE 74–103; RESP 16–18; TEMP 36.2–36.6; O2SAT 90–99; BMI 19.1
[2021-02-10] MEDS: 0.9 % Sodium Chloride Flush 3 ML SYRINGE IVFLUSH ×2 (01:01→09:15)
[2021-02-10] MEDS: Azithromycin 500 MG TABLET PO (02:41)
[2021-02-10] MEDS: Enoxaparin Sodium 40 MG/0.4 ML SYRINGE SUBCUT (02:41)
[2021-02-10] MEDS: Fluticasone/Vilanterol 100/25 BLST.W.DEV 1 PUFF INHALE (07:57)
[2021-02-10] MEDS: Folic Acid 1 MG TABLET PO (08:42)
[2021-02-10] MEDS: Thiamine HCL 100 MG TABLET PO (08:42)
[2021-02-10] MEDS: Atorvastatin Calcium 20 MG TABLET PO (08:42)
[2021-02-10] MEDS: methylPREDNISolone Sod Succ 40 MG/ML VIAL IVPUSH (08:42)
[2021-02-10] MEDS: dilTIAZem HCL 30 MG TABLET PO (08:43)
[2021-02-10] MEDS: Metoprolol Tartrate 100 MG TABLET PO (08:43)
[2021-02-10] MEDS: Clopidogrel Bisulfate 75 MG TABLET PO (08:43)
[2021-02-10] MEDS: Furosemide 40 MG TABLET PO (08:43)
[2021-02-10] MEDS: Aspirin Enteric Coated 81 MG TABLET.DR PO (08:44)
[2021-02-10] MEDS: predniSONE 20 MG TABLET 40 MG PO (08:44)
[2021-02-10] MEDS: Cholecalciferol (Vitamin D3) 25 MCG TABLET PO (08:44)
[2021-02-10] MEDS: Digoxin 0.125 MG TABLET PO (08:44)
--- NOTE | 2021-02-10 13:16 | PM.DS ---
DS: Providers Provider Date of Service: 02/11/21 Date of admission: 02/06/21 23:58 Date of discharge: 02/10/21 Primary care physician: Kym Sebastian MD Admitting clinician: Darrius Valerio Attending physician on admission: Darrius Valerio Consults: 02/07/21 13:08 Consult to Pulmonology Routine Consulting Provider: Gilbert Christian Reason for consultation: copd, pna, respiratory failure Has provider been notified: No 02/07/21 13:40 Consult to Cardiology Routine Consulting Provider: Walter Richardson Reason for consultation: afib rvr, chf Has provider been notified: No Attending physician on discharge: Minor Gutierrez Discharging clinician: Nessa Christian DS: Diagnosis Discharge Diagnosis (1) COPD (chronic obstructive pulmonary disease): Status: Acute (2) Chronic respiratory failure: Status: Acute (3) Tobacco abuse: Status: Acute DS: Medications Discharge Medications Home Medications: Home Medications Medication Instructions Recorded Confirmed albuterol sulfate 90 mcg/actuation 2 puff INHALATION Q6H PRN 08/12/20 02/07/21 aerosol inhaler aspirin 81 mg tablet,delayed 81 mg PO DAILY 08/12/20 02/07/21 release atorvastatin 20 mg tablet 20 mg PO DAILY 08/12/20 02/07/21 tiotropium bromide 18 mcg capsule 1 cap INHALATION DAILY 08/12/20 02/07/21 with inhalation device thiamine HCl (vitamin B1) [Vitamin 100 mg PO DAILY 11/05/20 02/07/21 B-1] cholecalciferol (vitamin D3) 25 mcg PO DAILY 11/07/20 02/07/21 [Vitamin D3] folic acid 1 mg PO DAILY 11/07/20 02/07/21 clopidogrel 1 tab PO DAILY 02/07/21 02/07/21 Previous Rx's Medication Instructions Recorded digoxin 125 mcg (0.125 mg) tablet 125 mcg PO DAILY 30 Days #30 tab 11/11/20 metoprolol tartrate 100 mg tablet 100 mg PO BID 90 Days #180 tab 12/31/20 prednisone 40 mg PO DAILY 4 Days #8 tab 02/06/21 azithromycin 500 mg PO Q24H #3 tab 02/10/21 cefuroxime axetil 500 mg PO Q12H #6 tab 02/10/21 diltiazem HCl 30 mg PO BID #60 tab 02/10/21 furosemide 40 mg PO DAILY #30 tab 02/10/21 nicotine 14 mg TRANSDERMAL DAILY #28 ea 02/10/21 tiotropium bromide [Spiriva with 18 mcg INHALATION RDAILY #30 inh 02/10/21 HandiHaler] DS: Summary Hospital Course Hospital Course: HP as per admitting provider This is a 65-year-old male with past medical history of COPD, CAD status post CABG, CHF, alcohol abuse, COPD, paroxysmal AFib on digoxin, initial presents to the hospital on 02/05 with increased shortness of breath and hypoxia in the 80s. At that time patient was managed in the ED and sent to rehab. He returns today with increased shortness of breath and low saturation of 92% on 2 L of oxygen. Patient reports that he has had the symptoms for the past 1-2 weeks, he has some cough, minimal sputum production, no chest pain, no fever or chills, no abdominal pain nausea or vomiting, diarrhea constipation. No urinary symptoms. He denies any lower extremity edema. Feels weakness and fatigue. On arrival to the ED vitals are significant for Heart rate of 119, temp of 97.6?, blood pressure 143/86, respiratory rate of 18, satting 97% on 2 L of oxygen Labs are significant for WBC count of 4.4, hemoglobin of 11.7, hematocrit 37.2, lactic acid of 2.1, BNP that increased from 1067 on 02/05 to 1711 today. COVID19 done on 02/[address] shows severe pulmonary emphysema and chronic thickening of bronchial coronel, consistent with obstructive pulmonary disease. Bronchitis. Mild ground-glass opacity in the left lower lobe and trace left pleural effusion. EKG shows AFib with premature ventricular or aberrantly conducted complexes, nonspecific ST T wave changes. Afib RVR . Poor control due to alcohol abuse and lung disease. Continued on metoprolol, digoxin and cardizem added. Better heart rate control. Heart failure. Treated with IV Lasix initially. Negative 70ml fluid balance. Not on Lasix at home. Symptoms all more likely related to COPD. CAP. CT showed mild ground glass opacity in the left lobe. initially treated with ceftriaxone. Be sent home with oral azithromycin and Ceftin for a total of an 8 day course. Chronic respiratory failure secondary to COPD Exacerbation. Severe pulmonary emphysema and chronic thickening of bronchial wall on CT. Treated with IV steroids and scheduled DuoNeb updraft treatments. Patient was not noted to be hypoxic. Will continue several more days of prednisone, was started on Spiriva and Breo Ellipta by hall coordinator. Will follow up with hall coordinator as outpatient. Time Spent with Patient Time attestation: Total time spent providing and/or coordinating discharge services: Discharge coordination time: Greater than 30 minutes Physical Exam Vital Signs: Vital Signs: Last Vital Signs Temp 97.1 F 02/10/21 11:53 Pulse 79 02/10/21 11:53 Resp 18 02/10/21 11:53 BP 113/70 02/10/21 11:53 Pulse Ox 94 02/10/21 11:53 Body Mass Index 19.1 Appearing in no acute distress head is normocephalic atraumatic eyes pupils are PERRLA sclera is anicteric mouth throat mucous membranes are intact and moist neck is supple no lymphadenopathy, no JVD noted lung sounds are clear to auscultation heart IRIR positive bowel sounds, abdomen is soft, nontender neuro patient is alert x3, no focal deficits DS: Data Data Completed and Pending Completed studies during hospitalization [Text1]: Procedures Detoxification Services for Substance Abuse Treatment (10/19/20) Labs on day of discharge: Preliminary micro results at discharge 02/06/21 20:56 Blood Culture - Preliminary Blood - Venous No growth after 48 hours. 02/06/21 20:56 Blood Culture - Preliminary Blood - Venous No growth after 48 hours. Discharge Plan Discharge Anticipated Discharge Date/Time: 02/10/21 13:00 Patient Disposition: Home, Self-Care Discharge Diagnosis: Atrial fibrillation with rapid ventricular response Chronic respiratory failure COPD exacerbation sign failure with preserved ejection fraction Abuse Referrals: Kirti NICHOLAS [Outside] - 1 Week Kym Sebastian MD [Primary Care Provider] - 1 Week Discharge Medications: New nicotine 14 mg/24 hr Patch 24 Hour 14 mg transdermal DAILY Qty: 28 RF: 0 cefuroxime axetil 500 mg Tablet 500 mg PO Q12H Qty: 6 RF: 0 diltiazem HCl 30 mg Tablet 30 mg PO BID Qty: 60 RF: 0 azithromycin 500 mg Tablet 500 mg PO Q24H Qty: 3 RF: 0 Spiriva with HandiHaler 18 mcg Capsule, W/Inhalation Device 18 mcg inhalation RDAILY Qty: 30 RF: 0 Continued metoprolol tartrate [Lopressor] 100 mg tablet 100 mg PO BID 90 Days Qty: 180 RF: 1 thiamine HCl (vitamin B1) [Vitamin B-1] 100 mg Tablet 100 mg PO DAILY RF: 0 folic acid 1 mg Tablet 1 mg PO DAILY RF: 0 cholecalciferol (vitamin D3) [Vitamin D3] 25 mcg (1,000 unit) Capsule 25 mcg PO DAILY RF: 0 prednisone 20 mg tablet 40 mg PO DAILY 4 Days Qty: 8 RF: 0 clopidogrel 75 mg tablet 1 tab PO DAILY RF: 0 aspirin 81 mg tablet,delayed release (DR/EC) 81 mg PO DAILY RF: 0 atorvastatin 20 mg tablet 20 mg PO DAILY RF: 0 albuterol sulfate [ProAir HFA] 90 mcg/actuation HFA aerosol inhaler 2 puff inhalation Q6H PRN (Reason: Wheezing) RF: 0 Spiriva with HandiHaler 18 mcg capsule, w/inhalation device 1 cap inhalation DAILY RF: 0 digoxin 125 mcg (0.125 mg) tablet 125 mcg PO DAILY 30 Days Qty: 30 RF: 5 Discontinued doxycycline hyclate 100 mg capsule 100 mg PO BID 7 Days Qty: 14 RF: 0 Discharge Orders: Discharge Order (Routine); Ordered 02/10/21 Ordered By: Nessa Christian Diet: advance to usual diet Activity on Discharge: As tolerated Stand Alone Forms: Patient Portal Discharge page Care Plan Goals: Resolution of respiratory problems Improvement in episodes of atrial fibrillation with rapid ventricular response Cessation of alcohol Health Concerns: Atrial fibrillation with rapid ventricular response Community-acquired pneumonia Acute on chronic respiratory failure secondary to COPD Alcohol abuse Heart failure with preserved ejection fraction Plan of Treatment: Follow-up with primary care as needed Follow-up with digital commentator as needed Follow-up with hall coordinator as needed Take a total of 8 days antibiotic treatment Use nicotine patches to quit smoking cigarettes Stop drinking alcohol Assessment: See discharge summary Discharge Date/Time: 02/10/21 17:31
== END 2021-02-10 17:31 | disposition home or self-care (01) | DRG 140 ==
LOC: HO.ED 02-07 00:22 → HO.EDOVER 02-07 00:27 → HO.S3 02-07 00:36
PROVIDERS: Physician Assistant Medical; Admitting Provider Internal Medicine; Emergency Provider Internal Medicine; PCP Student in an Organized Health Care Education/Training Program; Visit Provider Nurse Practitioner Acute Care
DX: J44.0 Chronic obstructive pulmonary disease with (acute) lower respiratory infection (principal); J18.9 Pneumonia, unspecified organism; J96.11 Chronic respiratory failure with hypoxia; I50.22 Chronic systolic (congestive) heart failure; J96.12 Chronic respiratory failure with hypercapnia; I48.0 Paroxysmal atrial fibrillation; E83.41 Hypermagnesemia; I25.10 Atherosclerotic heart disease of native coronary artery without angina pectoris; J44.1 Chronic obstructive pulmonary disease with (acute) exacerbation; E78.5 Hyperlipidemia, unspecified; F10.10 Alcohol abuse, uncomplicated; Z95.1 Presence of aortocoronary bypass graft; F17.210 Nicotine dependence, cigarettes, uncomplicated; Z71.6 Tobacco abuse counseling; Z79.02 Long term (current) use of antithrombotics/antiplatelets; Z79.82 Long term (current) use of aspirin; Z79.899 Other long term (current) drug therapy
CPT/HCPCS: 36415; 71250; 80048; 80076; 80162; 83605; 83735; 83880; 84484; 85025; 85027; 87040; 93005; 94640; 96365; 96366; 96368; 96375; 97162; 99285; J0456; J0696; J1650; J1940; J2920; J3475

== ENCOUNTER 2021-02-15 15:15 | Inpatient (IN) | payer MEDICAID, SELFPAY ==
--- NOTE | ~2021-02-15 | XR_ITS ---
EXAMINATION: XR CHEST CLINICAL INFORMATION: Chest pain COMPARISON: 02/05/2021 TECHNIQUE: Frontal view of the chest was obtained. FINDINGS: Again seen are changes of median sternotomy. The heart size is within normal limits. No infiltrates effusions or lung masses are seen. Compared to the prior study, the lungs are better expanded. XR/XR chest 1V IMPRESSION: No acute intrathoracic disease
[2021-02-15 15:22] VITALS: BP 158/109; PULSE 146; RESP 20; TEMP 36.8; O2SAT 97; BMI 20.3
--- NOTE | 2021-02-15 15:42 | ECG_ITS ---
Test Reason : CHEST PAIN Blood Pressure : / mmHG Vent. Rate : 132 BPM Atrial Rate : 141 BPM P-R Int : 000 ms QRS Dur : 088 ms QT Int : 334 ms P-R-T Axes : 000 084 -84 degrees QTc Int : 494 ms Atrial fibrillation with rapid ventricular response Incomplete LBBB ST & T wave abnormality, consider inferior ischemia Abnormal ECG When compared with ECG of 07-FEB-2021 11:55, No significant change was found Referred By: Angelique Gan Electronically Signed By:Luca Prado
[2021-02-15 19:52] LABS: Basophils Percent Auto 0.1 % (0-2); Eosinophils Absolute Auto 0.2 X10*3/uL (0.0-0.4); Eosinophils Percent Auto 1.6 % (0-4); Hematocrit 39.6 % (42-52); Hemoglobin 12.8 g/dl (14.0-18.0); Imm Gran Abs Auto 0.04 X10*3/uL (0.00-0.03); Imm Gran Pct Auto 0.4 % (0.0-0.4); Lymphocytes Absolute Auto 1.9 X10*3/uL (1.2-4.9); Lymphocytes Percent Auto 18.3 % (20-40); MANUAL DIFF FLAG SCAN; Mean Corpuscular HGB Conc 32.3 g/dl (31.0-36.0); Mean Corpuscular Hemoglobin 27.3 pg (27.0-33.0); Mean Corpuscular Volume 84.4 fL (80-98); Mean Platelet Volume 10.6 fL (9.4-12.4); Monocytes Absolute Auto 1.5 X10*3/uL (0.1-1.2); Monocytes Percent Auto 14.6 % (2-11); Neutrophils Absolute Auto 6.9 X10*3/uL (2.0-8.3); Platelet Count 233 X10*3/uL (160-400); Red Blood Count 4.69 X10*6/uL (4.60-5.80); Red Cell Distribution Width 18.1 % (11.0-16.0); SCAN SMEAR FLAG 1; White Blood Count 10.6 X10*3/uL (4.8-10.8)
[2021-02-15 20:10] LABS: SLIDE REVIEW VERIFIED
[2021-02-15 20:19] LABS: Anion Gap 14 (12-20); Blood Urea Nitrogen 13 mg/dL (9-16); Carbon Dioxide 32 mmol/L (22-29); Chloride 97 mmol/L (96-108); Creatinine Clr Calc Pharmacy 94.3; Estimated Glomerular Filt Rate > 60; Glucose Random 94 mg/dL (60-115); Potassium 3.6 mmol/L (3.3-5.1); Sodium 139 mmol/L (135-145)
[2021-02-15 20:26] LABS: Troponin-I High Sensitivity 20.6 ng/L (<3.5-35.0)
[2021-02-15 20:27] LABS: B Type Natriuretic Peptide 679 pg/mL (<100)
--- NOTE | 2021-02-15 20:49 | ED_ITS ---
HPI - Chest Pain General Chief Complaint: Chest Pain Stated Complaint: chest pain Time Seen by Provider: 02/15/21 22:11 Source: patient and family Mode of arrival: ambulatory Limitations: no limitations History of Present Illness HPI narrative: 65-year-old male with past medical history of AFib, CHF with preserved ejection fraction status post coronary bypass, coronary artery disease, COPD, hyperlipidemia, hypertension, EtOH abuse, and tobacco dependence presents to the emergency department with sharp stabbing type chest pain that worsens on exertion and has experienced palpitations throughout the day. His ch est pain started this morning when he woke up is substernal, and does not radiate. He does have some bilateral lower extremity edema which he says is worse than normal. He does not report any dizziness, lightheadedness, abdominal pain, abdominal distention, dysuria, hematuria, fevers, chills, nausea, vomiting, diarrhea, constipation, or changes in vision. Related Data Home Medications Medication Instructions Recorded Confirmed albuterol sulfate 90 mcg/actuation 2 puff INHALATION Q6H PRN 08/12/20 02/07/21 aerosol inhaler aspirin 81 mg tablet,delayed 81 mg PO DAILY 08/12/20 02/07/21 release atorvastatin 20 mg tablet 20 mg PO DAILY 08/12/20 02/07/21 tiotropium bromide 18 mcg capsule 1 cap INHALATION DAILY 08/12/20 02/07/21 with inhalation device thiamine HCl (vitamin B1) [Vitamin 100 mg PO DAILY 11/05/20 02/07/21 B-1] cholecalciferol (vitamin D3) 25 mcg PO DAILY 11/07/20 02/07/21 [Vitamin D3] folic acid 1 mg PO DAILY 11/07/20 02/07/21 clopidogrel 1 tab PO DAILY 02/07/21 02/07/21 Previous Rx's Medication Instructions Recorded digoxin 125 mcg (0.125 mg) tablet 125 mcg PO DAILY 30 Days #30 tab 11/11/20 metoprolol tartrate 100 mg tablet 100 mg PO BID 90 Days #180 tab 12/31/20 prednisone 40 mg PO DAILY 4 Days #8 tab 02/06/21 azithromycin 500 mg PO Q24H #3 tab 02/10/21 cefuroxime axetil 500 mg PO Q12H #6 tab 02/10/21 diltiazem HCl 30 mg PO BID #60 tab 02/10/21 nicotine 14 mg TRANSDERMAL DAILY #28 ea 02/10/21 tiotropium bromide [Spiriva with 18 mcg INHALATION RDAILY #30 inh 02/10/21 HandiHaler] Allergies Allergy/AdvReac Type Severity Reaction Status Date / Time No Known Allergies Allergy Verified 11/05/20 14:39 [No Known Allergies*] Review of Systems Review of Systems: Constitutional: No Weight loss, No Fever, No Chills, No Night Sweats, No Fatigue, No Malaise ENT/Mouth: No Hearing loss, No Ear Pain, No Nasal Congestion, No Sinus Pain, No Hoarseness, No sore throat, No Rhinorrhea, No Swallowing Difficulty Eyes: No Eye Pain, No Swelling, No Redness, No Foreign Body, No Discharge, No Vision Changes Cardiovascular: Positive Chest Pain, no SOB, positive Dyspnea on Exertion, No Orthopnea, positive Edema, positive Palpitations Respiratory: No Cough, No Sputum, No Wheezing, No Smoke Exposure, No Dyspnea Gastrointestinal: pos Nausea, No Vomiting, No Diarrhea, No abdominal Pain, No He matochezia, No Melena Genitourinary: No irregular bleeding, No Dysuria, No Urinary Frequency, No He maturia, No Urinary Incontinence, No Urgency, No Flank Pain, No Urinary Flow Changes, No Hesitancy Musculoskeletal: No joint pain, No Myalgias, No Joint Swelling Skin: No Skin Lesions, No rash Neuro: No Weakness, No Numbness, No Paresthesias, No Loss of Consciousness, No Dizziness, No Headache Psych: No Anxiety/Panic, No Depression, No SI/HI/AH/VH Heme/Lymph: No Bruising, No Bleeding,No Lymphadenopathy Endocrine: No Polyuria, No Polydipsia, No Temperature Intolerance Yes all other systems are reviewed and are negative [facility] Past Medical History Medical History Alcohol abuse Atherosclerotic cardiovascular disease CAD (coronary artery disease) Chronic respiratory failure COPD (chronic obstructive pulmonary disease) History of ischemic cardiomyopathy Hypercholesteremia Myocardial infarction Paroxysmal atrial fibrillation Tobacco abuse Surgical History H/O heart bypass surgery Status post aorto-coronary artery bypass graft Social History Social History Household Members: Family Household Members Other:: brother, daughter and son in law, grandchildren Housing: House Do you presently have visiting nurse or other home services: No Alcohol intake: current Alcohol intake frequency: 3 or more drinks per day Alcohol type: hard liquor Smoking Status: Current every day smoker Tobacco Type: Cigarette Packs Per Day: 1 Cigarettes Per Day: 20.0 Years Smoked: 40 Second Hand Smoke Exposure: Yes Use of substances other than those prescribed or required for medical reasons: No Advance Directives: Yes Advance Directives on File: Yes Advance Directives Date on File: 11/08/20 service: No Current occupational status: retired Physical Exam Vital Signs: Vital Signs: Last Vital Signs Temp 98.2 F 02/15/21 15:22 Pulse 118 H 02/15/21 23:10 Resp 15 02/15/21 22:00 BP 114/72 02/15/21 23:10 Pulse Ox 100 02/15/21 22:00 Body Mass Index 20.3 Appearance: Alert. Oriented X3. No acute distress. Flat affect. Thin, unkempt. Head: Normal external exam. Normocephalic. Atraumatic. No Barnes signs noted. No raccoon eyes noted Eyes: PERRLA. EOMI. Conjunctiva and sclera normal. Eyelids normal. ENT: TM's Normal. Pharynx normal. Uvula midline. Moist mucous membranes. No trismus noted. No drooling noted. No muffled voice noted. Neck: Normal inspection. Neck supple. No adenopathy. Thyroid Normal. No meningeal signs. No neck mass noted. CVS: Tachycardic heart rate and rhythm. Pulses thready and equal to all extremities. Respiratory: No respiratory distress. Painless inspiration. Lung sounds expiratory wheezing. Chest nontender. No accessory muscle usage noted or decreased air movement noted. Abdomen: Soft and nontender. Bowel sounds normal in all 4 quadrants. No distention noted. No organomegaly noted. No visible injury noted. Back: No CVA tenderness. Full range of motion noted. Skin: Skin warm and dry. Normal skin color. Normal skin turgor. No rash es/lesions/lacerations noted. Extremities: +3 pitting edema bilateral lower extremities. Extremities exhibit normal range of motion. Extremities nontender. Neuro: cranial nerves 2-12 intact, no focal neural deficits, strength 5/5 to all extremities, No motor deficit. No sensory deficit. Course Course Course Narrative: 65-year-old male with AFib, CHF with preserved ejection fraction status post grafting, CAD, COPD, hyperlipidemia, hypertension, ETOH dependence and tobacco dependence presents with chest pain. Was seen approximately 5 hours after presenting to the emergency department waiting room, lab values indicate an elevated troponin of 26 which greater than his prior values. He does have CHF and AFib. Will repeat stat troponin at this time. BNP elevated at almost 700, will order Lasix 40 mg IV push and Cardizem 10 IV push. RN updated this PLANT CULTURE MANAGER that Cardizem order was incorrectly ordered. 10:42 p.m. patient's heart rate still in the 120s 130s, order for 2nd dose of 10 IV Cardizem. 11:46 p.m. repeat EKG indicates heart rate of 96 with AFib with PVCs and no indication of ST elevation or depression. Discussion with hospitalist regarding plan of care, plan is to admit for AFib, CHF, and ACS rule out. MDM - Chest Pain Differential Diagnosis Differential diagnosis: Likely atypical chest pain, st elevation myocardial infarction and chest pain Differential diagnosis: AFib, CHF, pneumonia Medical Records Data Attestation: I reviewed the patient's medical records. Lab Data Attestation: I reviewed the patient's lab results. Result diagrams: 02/15/21 19:47 02/15/21 19:47 Labs: Lab Results 02/15/21 02/15/21 02/15/21 Range/Units 19:47 19:47 19:47 WBC 10.6 (4.8-10.8) X10*3/uL RBC 4.69 (4.60-5.80) X10*6/uL Hgb 12.8 L (14.0-18.0) g/dl Hct 39.6 L (42-52) % MCV 84.4 (80-98) fL MCH 27.3 (27.0-33.0) pg MCHC 32.3 (31.0-36.0) g/dl RDW 18.1 H (11.0-16.0) % Plt Count 233 (160-400) X10*3/uL MPV 10.6 (9.4-12.4) fL Immature Gran % (Auto) 0.4 (0.0-0.4) % Neut % (Auto) 65.0 (45-73) % Lymph % (Auto) 18.3 L (20-40) % Norton % (Auto) 14.6 H (2-11) % Eos % (Auto) 1.6 (0-4) % Baso % (Auto) 0.1 (0-2) % Lymph # (Auto) 1.9 (1.2-4.9) X10*3/uL Norton # (Auto) 1.5 H (0.1-1.2) X10*3/uL Eos # (Auto) 0.2 (0.0-0.4) X10*3/uL Baso # (Auto) 0.0 (0.0-0.2) X10*3/uL Abs Immat Gran (auto) 0.04 H (0.00-0.03) X10*3/uL Absolute Neuts (auto) 6.9 (2.0-8.3) X10*3/uL Absolute Nucleated RBC 0.000 (0.0-0.012) X10*3/uL Nucleated RBC % (auto) 0.0 (0.0-0.2) /100WBC Smear Tech's Comments VERIFIED Hold Blue Top SEE NOTE Sodium 139 (135-145) mmol/L Potassium 3.6 (3.3-5.1) mmol/L Chloride 97 (96-108) mmol/L Carbon Dioxide 32 H (22-29) mmol/L Anion Gap 14 (12-20) BUN 13 (9-16) mg/dL Creatinine 0.66 (0.5-1.4) mg/dL Estim Creat Clear Calc 94.3 Estimated GFR > 60 Random Glucose 94 (60-115) mg/dL Calcium 9.0 (8.4-10.2) mg/dL Troponin I High Sens (<3.5-35.0) ng/L B-Natriuretic Peptide (<100) pg/mL 02/15/21 02/15/21 02/15/21 Range/Units 19:47 19:47 21:17 WBC (4.8-10.8) X10*3/uL RBC (4.60-5.80) X10*6/uL Hgb (14.0-18.0) g/dl Hct (42-52) % MCV (80-98) fL MCH (27.0-33.0) pg MCHC (31.0-36.0) g/dl RDW (11.0-16.0) % Plt Count (160-400) X10*3/uL MPV (9.4-12.4) fL Immature Gran % (Auto) (0.0-0.4) % Neut % (Auto) (45-73) % Lymph % (Auto) (20-40) % Norton % (Auto) (2-11) % Eos % (Auto) (0-4) % Baso % (Auto) (0-2) % Lymph # (Auto) (1.2-4.9) X10*3/uL Norton # (Auto) (0.1-1.2) X10*3/uL Eos # (Auto) (0.0-0.4) X10*3/uL Baso # (Auto) (0.0-0.2) X10*3/uL Abs Immat Gran (auto) (0.00-0.03) X10*3/uL Absolute Neuts (auto) (2.0-8.3) X10*3/uL Absolute Nucleated RBC (0.0-0.012) X10*3/uL Nucleated RBC % (auto) (0.0-0.2) /100WBC Smear Tech's Comments Hold Blue Top Sodium (135-145) mmol/L Potassium (3.3-5.1) mmol/L Chloride (96-108) mmol/L Carbon Dioxide (22-29) mmol/L Anion Gap (12-20) BUN (9-16) mg/dL Creatinine (0.5-1.4) mg/dL Estim Creat Clear Calc Estimated GFR Random Glucose (60-115) mg/dL Calcium (8.4-10.2) mg/dL Troponin I High Sens 20.6 D 20.1 (<3.5-35.0) ng/L B-Natriuretic Peptide 679 H (<100) pg/mL Imaging Data Chest x-ray: Attestation: I personally reviewed and interpreted this imaging study as follows: Radiologist's impression: EXAMINATION: XR CHEST CLINICAL INFORMATION: Chest pain COMPARISON: 02/05/2021 TECHNIQUE: Frontal view of the chest was obtained. FINDINGS: Again seen are changes of median sternotomy. The heart size is within normal limits. No infiltrates effusions or lung masses are seen. Compared to the prior study, the lungs are better expanded. XR/XR chest 1V IMPRESSION: No acute intrathoracic disease ECG Data ECG #1: Attestation: I personally reviewed and interpreted this ECG as follows: ECG interpretation date: 02/15/21 ECG interpretation time: 15:23 Interpretation: Vent. rate 132 BPM CA interval * ms QRS duration 88 ms QT/QTc 334/494 ms P-R-T axes * 84 -84 Atrial fibrillation with rapid ventricular response ST & T wave abnormality, consider inferior ischemia Abnormal ECG When compared with ECG of 07-FEB-2021 11:55, No significant change was found ECG #2: Attestation: I personally reviewed and interpreted this ECG as follows: ECG interpretation date: 02/15/21 ECG interpretation time: 23:46 Interpretation: Vent. rate 96 BPM CA interval * ms QRS duration 92 ms QT/QTc 372/469 ms P-R-T axes * 80 -84 Atrial fibrillation with premature ventricular or aberrantly conducted complexes ST & T wave abnormality, consider inferior ischemia Prolonged QT Abnormal ECG When compared with ECG of 15-FEB-2021 15:23, No significant change was found Critical Care Time Critical Care Time Critical Care Time: Yes Total Critical Care Time: 45 Attestation: I have personally provided critical care time exclusive of time spent on separately billable procedures. Time includes review of laboratory data, radiology results, discussion with consultants, and monitoring for potential decompensation. Interventions were performed as documented. Discharge Plan Discharge Clinical Impression: CHF (congestive heart failure) Qualifiers: Heart failure type: systolic Heart failure chronicity: acute on chronic Qualified Code(s): I50.23 - Acute on chronic systolic (congestive) heart failure Atrial fibrillation Qualifiers: Atrial fibrillation type: longstanding persistent Qualified Code(s): I48.11 - Longstanding persistent atrial fibrillation Patient Disposition: Admitted As Inpatient
[2021-02-15] MEDS: Furosemide 40 MG/4 ML VIAL IVPUSH (21:34)
[2021-02-15 21:35] VITALS: BP 173/99; PULSE 129; RESP 17; O2SAT 97
[2021-02-15 22:00] VITALS: BP 114/67; PULSE 118; RESP 15; O2SAT 100
[2021-02-15 22:07] LABS: Troponin-I High Sensitivity 20.1 ng/L (<3.5-35.0)
[2021-02-15 22:30] VITALS: BP 127/63; PULSE 133
[2021-02-15] MEDS: dilTIAZem HCL 50 MG/10 ML VIAL 10 MG IVPUSH ×2 (22:30→23:10)
[2021-02-15 23:10] VITALS: BP 114/72; PULSE 118
--- NOTE | 2021-02-15 23:25 | ECG_ITS ---
Test Reason : REPEAT Blood Pressure : / mmHG Vent. Rate : 096 BPM Atrial Rate : 441 BPM P-R Int : 000 ms QRS Dur : 092 ms QT Int : 372 ms P-R-T Axes : 000 080 -84 degrees QTc Int : 469 ms Atrial fibrillation with premature ventricular or aberrantly conducted complexes ST & T wave abnormality, consider inferior ischemia and lateral ischemia Prolonged QT Abnormal ECG When compared with ECG of 15-FEB-2021 15:23, No significant change was found Referred By: Angelique Gan Electronically Signed By:Luca Prado
[2021-02-15 23:53] VITALS: BP 110/81; PULSE 114; RESP 15; O2SAT 98
--- NOTE | 2021-02-15 23:58 | P.HPHOSP_ITS ---
History of Present Illness Date of Service: 02/15/21 Chief Complaint: Chest pain 65-year-old male with a past medical history of hypertension, hyperlipidemia, coronary artery disease status post CABG, CHF, paroxysmal AFib not on anticoagulation-on aspirin, Plavix; alcohol abuse last drink was yesterday, tobacco dependence presented to the hospital with a chief complaint of chest pain. Patient mentioned that he had chest pain located in the center of the chest nonradiating no associated lightheadedness dizziness nausea vomiting or sweating. Denies any fever chills cough. Tight in nature. Also complains of leg swelling. Denies any shortness of breath. Denies any GI or symptoms. ER course: Per ER team patient did have 3+ pitting edema; initial noted to be in AFib with rapid ventricular response-given diltiazem; patient was also given IV Lasix. EKG was nonischemic. Troponins were negative. Admitted to the hospital for further management. [facility] Medical History Alcohol abuse Atherosclerotic cardiovascular disease CAD (coronary artery disease) Chronic respiratory failure COPD (chronic obstructive pulmonary disease) History of ischemic cardiomyopathy Hypercholesteremia Myocardial infarction Paroxysmal atrial fibrillation Tobacco abuse Surgical History H/O heart bypass surgery Status post aorto-coronary artery bypass graft Social History Household Members: Children Household Members Other:: CHILDREN,GRANDCHILDREN Housing: House Do you presently have visiting nurse or other home services: No Alcohol intake: current Alcohol intake frequency: 3 or more drinks per day Alcohol type: hard liquor Smoking Status: Current every day smoker Tobacco Type: Cigarette Packs Per Day: 1 Cigarettes Per Day: 20.0 Years Smoked: 40 Smoked in Last 30 Days: Yes Smoking Quit Date: 02/06/21 Patient Interested in Nicotine Replacement: Yes Second Hand Smoke Exposure: Yes Use of substances other than those prescribed or required for medical reasons: No Have you been hit, kicked, punched, or otherwise hurt by someone within the past year? If so, by whom?: No Do you feel safe in your current relationship?: No Current Relationship Is there a partner from a previous relationship who is making you feel unsafe now?: No Are you made to feel afraid or neglected: No Advance Directives: Yes Advance Directives on File: Yes Advance Directives Date on File: 11/08/20 Do you have thoughts of harming others: None Do you have a plan to hurt others: No Plan Recently lost weight without trying: Yes How much weight loss: 2-13 pounds Eating poorly because of decreased appetite: No Nutrition screen score: 3 Nutrition Risks: Emaciation/Cachexia Poor oral hygiene: No service: No Current occupational status: retired [employer] Allergies Allergy/AdvReac Type Severity Reaction Status Date / Time No Known Allergies Allergy Verified 11/05/20 14:39 [No Known Allergies*] Active Medications: Current Medications Generic Name Dose Route Start Last Admin Trade Name Freq PRN Reason Stop Dose Admin Enoxaparin Sodium 40 mg 02/15/21 23:45 Enoxaparin Sodium 40 Mg/0.4 Ml Syringe SUBCUT Q24H JASPAL Magnesium Hydroxide 30 ml 02/15/21 23:53 Milk Of Magnesia 30 Ml Oral.Susp PO DAILY PRN Constipation Nitroglycerin 0.4 mg 02/15/21 23:53 Nitroglycerin 0.4 Mg Tab.Subl SUBLINGUAL Q5M PRN Chest Pain Sodium Chloride 3 ml 02/16/21 00:00 0.9 % Sodium Chloride Flush 3 Ml Syringe IVFLUSH QSHIFT [facility] Home Medications Medication Instructions Recorded Confirmed Last Taken Type albuterol sulfate 90 mcg/actuation 2 puff INHALATION Q6H PRN 08/12/20 02/16/21 Unknown History aerosol inhaler aspirin 81 mg tablet,delayed 81 mg PO DAILY 08/12/20 02/16/21 Unknown History release atorvastatin 20 mg tablet 20 mg PO DAILY 08/12/20 02/16/21 Unknown History tiotropium bromide 18 mcg capsule 1 cap INHALATION DAILY 08/12/20 02/16/21 Unknown History with inhalation device thiamine HCl (vitamin B1) [Vitamin 100 mg PO DAILY 11/05/20 02/16/21 Unknown History B-1] cholecalciferol (vitamin D3) 25 mcg PO DAILY 11/07/20 02/16/21 Unknown History [Vitamin D3] folic acid 1 mg PO DAILY 11/07/20 02/16/21 Unknown History clopidogrel 1 tab PO DAILY 02/07/21 02/16/21 Unknown History Physical Exam Vital Signs and Narrative: Vital Signs: Last Vital Signs Temp 98.2 F 02/15/21 15:22 Pulse 118 H 02/15/21 23:10 Resp 15 02/15/21 22:00 BP 114/72 02/15/21 23:10 Pulse Ox 100 02/15/21 22:00 Body Mass Index 20.3 Gen: Appears be in no acute distress HEENT: NCAT, Moist mucosa. Pulmonary: Vesicular breath sounds, fair air entry CVS: Normal S1-S2 Abdomen: BS+, Soft, Nontender Extremities: Warm well perfused; + pitting edema Neuro: Alert and awake. Results Labs CBC and Chem 7: 02/16/21 05:52 02/16/21 05:52 Labs: Laboratory Results - last 24 hr 02/15/21 02/15/21 02/15/21 19:47 19:47 19:47 MCV 84.4 MCH 27.3 MCHC 32.3 RDW 18.1 H Plt Count 233 MPV 10.6 Immature Gran % (Auto) 0.4 Neut % (Auto) 65.0 Lymph % (Auto) 18.3 L [place] % (Auto) 14.6 H Eos % (Auto) 1.6 Baso % (Auto) 0.1 Lymph # (Auto) 1.9 [place] # (Auto) 1.5 H Eos # (Auto) 0.2 Baso # (Auto) 0.0 Abs Immat Gran (auto) 0.04 H Absolute Neuts (auto) 6.9 Absolute Nucleated RBC 0.000 Nucleated RBC % (auto) 0.0 Smear Tech's Comments VERIFIED Hold Blue Top SEE NOTE Anion Gap 14 Estim Creat Clear Calc 94.3 Estimated GFR > 60 Random Glucose 94 Calcium 9.0 Troponin I High Sens B-Natriuretic Peptide 02/15/21 02/15/21 02/15/21 19:47 19:47 21:17 MCV MCH MCHC RDW Plt Count MPV Immature Gran % (Auto) Neut % (Auto) Lymph % (Auto) [place] % (Auto) Eos % (Auto) Baso % (Auto) Lymph # (Auto) [place] # (Auto) Eos # (Auto) Baso # (Auto) Abs Immat Gran (auto) Absolute Neuts (auto) Absolute Nucleated RBC Nucleated RBC % (auto) Smear Tech's Comments Hold Blue Top Anion Gap Estim Creat Clear Calc Estimated GFR Random Glucose Calcium Troponin I High Sens 20.6 D 20.1 B-Natriuretic Peptide 679 H Imaging Radiologist's Impressions: Impressions Chest X-Ray 02/15/21 19:11 IMPRESSION: No acute intrathoracic disease Assessment and Plan (1) CHF (congestive heart failure): Qualifiers: Heart failure chronicity: acute on chronic Heart failure type: systolic Qualified Code(s): I50.23 - Acute on chronic systolic (congestive) heart failure Status: Acute 65-year-old male with a past medical history of hypertension, hyperlipidemia, CAD status post CABG, AFib on aspirin, Plavix, CHF-not on Lasix; COPD; alcohol abuse, tobacco dependence presented to the hospital with a chief complaint of chest pain and leg swelling. Chest pain: chest pain reproducible EKG nonischemic. Troponins negative. Echocardiogram. CHF: Patient has positive pitting edema. Breathing comfortably. Saturating well on room air. Continue Lasix, monitor daily weights and inta ke/output.Cardiology consult. Hypertension/hyperlipidemia: Continue home AFib with rapid ventricular response: Currently improving with diltiazem in the ER. Continue home medications. Monitor on telemetry. Patient not on anticoagulation at home. Continue home aspirin/Plavix. Alcohol abuse: Monitor on CIWA protocol with Ativan. Thiamine, folate, multivitamins. Tobacco dependence: reports he stopped 10 days ago DVT prophylaxis: Lovenox Code status: Full code
[2021-02-16] VITALS (15 sets, daily range): BP systolic 100–137; BP diastolic 67–89; PULSE 56–134; RESP 18–20; TEMP 36.2–36.9; O2SAT 94–99; BMI 19.1
[2021-02-16 00:35] LABS: Digoxin < 0.3 ng/mL (0.8-2.0)
[2021-02-16 00:57] LABS: COVID-19 Test Negative (Negative)
[2021-02-16] MEDS: Lidocaine 4 % Patch ADH..PATCH 1 PATCH TRANSDERMA (02:57)
[2021-02-16] MEDS: Nitroglycerin 0.4 MG TAB.SUBL SUBLINGUAL (03:20)
[2021-02-16] MEDS: dilTIAZem HCL 30 MG TABLET PO ×4 (03:58→21:28)
[2021-02-16 06:13] LABS: MANUAL DIFF FLAG NO
[2021-02-16 06:22] LABS: Basophils Percent Auto 0.1 % (0-2); Eosinophils Absolute Auto 0.1 X10*3/uL (0.0-0.4); Eosinophils Percent Auto 0.9 % (0-4); Hematocrit 35.9 % (42-52); Hemoglobin 11.7 g/dl (14.0-18.0); Imm Gran Abs Auto 0.05 X10*3/uL (0.00-0.03); Imm Gran Pct Auto 0.5 % (0.0-0.4); Lymphocytes Absolute Auto 1.2 X10*3/uL (1.2-4.9); Lymphocytes Percent Auto 11.7 % (20-40); Mean Corpuscular HGB Conc 32.6 g/dl (31.0-36.0); Mean Corpuscular Hemoglobin 27.5 pg (27.0-33.0); Mean Corpuscular Volume 84.3 fL (80-98); Mean Platelet Volume 10.7 fL (9.4-12.4); Monocytes Absolute Auto 1.4 X10*3/uL (0.1-1.2); Monocytes Percent Auto 13.9 % (2-11); Neutrophils Absolute Auto 7.3 X10*3/uL (2.0-8.3); Neutrophils Percent Auto 72.9 % (45-73); Platelet Count 221 X10*3/uL (160-400); Red Blood Count 4.26 X10*6/uL (4.60-5.80); Red Cell Distribution Width 18.2 % (11.0-16.0)
[2021-02-16 06:43] LABS: Anion Gap 13 (12-20); Blood Urea Nitrogen 15 mg/dL (9-16); Calcium 8.9 mg/dL (8.4-10.2); Carbon Dioxide 36 mmol/L (22-29); Chloride 95 mmol/L (96-108); Creatinine Clr Calc Pharmacy 90.2; Estimated Glomerular Filt Rate > 60; Glucose Random 122 mg/dL (60-115); Magnesium 1.6 mg/dL (1.6-2.6); Potassium 3.1 mmol/L (3.3-5.1); Sodium 141 mmol/L (135-145)
[2021-02-16] MEDS: Aspirin Enteric Coated 81 MG TABLET.DR PO (08:36)
[2021-02-16] MEDS: Thiamine HCL 100 MG TABLET PO (08:36)
[2021-02-16] MEDS: Nicotine 14 MG PATCH.TD24 TRANSDERMA (08:36)
[2021-02-16] MEDS: Digoxin 0.125 MG TABLET PO (08:36)
[2021-02-16] MEDS: Metoprolol Tartrate 100 MG TABLET PO ×2 (08:36→21:28)
[2021-02-16] MEDS: predniSONE 20 MG TABLET 40 MG PO (08:36)
[2021-02-16] MEDS: Atorvastatin Calcium 20 MG TABLET PO (08:37)
[2021-02-16] MEDS: Cholecalciferol (Vitamin D3) 25 MCG TABLET PO (08:37)
[2021-02-16] MEDS: Clopidogrel Bisulfate 75 MG TABLET PO (08:37)
[2021-02-16] MEDS: Famotidine 20 MG TABLET PO ×2 (08:37→21:28)
[2021-02-16] MEDS: Folic Acid 1 MG TABLET PO (08:37)
[2021-02-16] MEDS: 0.9 % Sodium Chloride Flush 3 ML SYRINGE IVFLUSH ×3 (08:37→17:49)
--- NOTE | 2021-02-16 10:11 | P.CONCA_ITS ---
History of Present Illness History of Present Illness Date of Service: 02/16/21 Requesting physician: Anibal White Chief complaint: chest pain Narrative: 65-year-old gentleman background history of coronary artery bypass surgery, hypertension, hyperlipidemia, paroxysmal atrial fibrillation and alcoholism. He has had multiple episodes of atrial fibrillation for which he has presented to hospital as was as the clinic. He has been drinking and again presented for chest discomfort as well as palpitations. He is complaining of left-sided chest pain which is clearly reproducible on the chest wall and is musculoskeletal in origin. His denying palpitations right now but was feeling that his heart was racing. [facility] Past Medical History Medical History Alcohol abuse Atherosclerotic cardiovascular disease CAD (coronary artery disease) Chronic respiratory failure COPD (chronic obstructive pulmonary disease) History of ischemic cardiomyopathy Hypercholesteremia Myocardial infarction Paroxysmal atrial fibrillation Tobacco abuse Surgical History Surgical History H/O heart bypass surgery Status post aorto-coronary artery bypass graft Social History Social History Household Members: Children Household Members Other:: CHILDREN,GRANDCHILDREN Housing: House Do you presently have visiting nurse or other home services: No Alcohol intake: current Alcohol intake frequency: 3 or more drinks per day Alcohol type: hard liquor Smoking Status: Current every day smoker Tobacco Type: Cigarette Packs Per Day: 1 Cigarettes Per Day: 20.0 Years Smoked: 40 Smoked in Last 30 Days: Yes Smoking Quit Date: 02/06/21 Patient Interested in Nicotine Replacement: Yes Second Hand Smoke Exposure: Yes Use of substances other than those prescribed or required for medical reasons: No Have you been hit, kicked, punched, or otherwise hurt by someone within the past year? If so, by whom?: No Do you feel safe in your current relationship?: No Current Relationship Is there a partner from a previous relationship who is making you feel unsafe now?: No Are you made to feel afraid or neglected: No Advance Directives: Yes Advance Directives on File: Yes Advance Directives Date on File: 11/08/20 Do you have thoughts of harming others: None Do you have a plan to hurt others: No Plan Recently lost weight without trying: Yes How much weight loss: 2-13 pounds Eating poorly because of decreased appetite: No Nutrition screen score: 3 Nutrition Risks: Emaciation/Cachexia Poor oral hygiene: No service: No Current occupational status: retired Meds Allergies Allergy/AdvReac Type Severity Reaction Status Date / Time No Known Allergies Allergy Verified 11/05/20 14:39 [No Known Allergies*] Active Medications: Current Medications Generic Name Dose Route Start Last Admin Trade Name Freq PRN Reason Stop Dose Admin Albuterol Sulfate 2 puff 02/16/21 03:22 Albuterol Sulfate 90 Mcg 8 Gm Inhaler INHALE Q6H PRN Wheezing Aspirin 81 mg 02/16/21 09:00 02/16/21 08:36 Aspirin Enteric Coated 81 Mg Tablet. PO 81 mg DAILY JASPAL Administration Atorvastatin Calcium 20 mg 02/16/21 09:00 02/16/21 08:37 Atorvastatin Calcium 20 Mg Tablet PO 20 mg DAILY JASPAL Administration Clopidogrel Bisulfate 75 mg 02/16/21 09:00 02/16/21 08:37 Clopidogrel Bisulfate 75 Mg Tablet PO 75 mg DAILY JASPAL Administration Digoxin 0.125 mg 02/16/21 09:00 02/16/21 08:36 Digoxin 0.125 Mg Tablet PO 0.125 mg DAILY JASPAL Administration Diltiazem HCl 30 mg 02/16/21 09:00 02/16/21 03:58 Diltiazem Hcl 30 Mg Tablet PO 30 mg QID JASPAL Administration Protocol Enoxaparin Sodium 40 mg 02/15/21 22:00 02/15/21 22:00 Enoxaparin Sodium 40 Mg/0.4 Ml Syringe SUBCUT Not Given Q24H PENDING SALE TO [facility] Famotidine 20 mg 02/16/21 09:00 02/16/21 08:37 Famotidine 20 Mg Tablet PO 20 mg BID JASPAL Administration Folic Acid 1 mg 02/16/21 09:00 02/16/21 08:37 Folic Acid 1 Mg Tablet PO 1 mg DAILY JASPAL Administration Lorazepam 1 mg 02/16/21 00:03 Lorazepam 1 Mg Tablet PO 02/20/21 00:02 Q4H PRN Breakthrough alcohol withdrawa Magnesium Hydroxide 30 ml 02/15/21 23:53 Milk Of Magnesia 30 Ml Oral.Susp PO DAILY PRN Constipation Metoprolol Tartrate 100 mg 02/16/21 09:00 02/16/21 08:36 Metoprolol Tartrate 100 Mg Tablet PO 100 mg BID PENDING SALE TO [facility] Administration Protocol Multivitamins 1 tab 02/16/21 09:00 02/16/21 08:37 B-Complex With Vitamin C Tablet PO 1 tab DAILY JASPAL Administration Nicotine 14 mg 02/16/21 09:00 02/16/21 08:36 Nicotine 14 Mg Patch.Td24 TRANSDERMA 14 mg DAILY JASPAL Administration Nitroglycerin 0.4 mg 02/15/21 23:53 02/16/21 03:20 Nitroglycerin 0.4 Mg Tab.Subl SUBLINGUAL 0.4 mg Q5M PRN Administration Chest Pain Prednisone 40 mg 02/16/21 09:00 02/16/21 08:36 Prednisone 20 Mg Tablet PO 40 mg DAILY PENDING S[facility] Administration Sodium Chloride 3 ml 02/16/21 00:00 02/16/21 08:37 0.9 % Sodium Chloride Flush 3 Ml Syringe IVFLUSH 3 ml QSHIFT PENDING SALE TO [facility] Administration Thiamine HCl 100 mg 02/16/21 09:00 02/16/21 08:36 Thiamine Hcl 100 Mg Tablet PO 02/19/21 08:59 100 mg DAILY PENDING SALE TO [facility] Administration Thiamine HCl 100 mg 02/16/21 09:00 02/16/21 09:10 Thiamine Hcl 100 Mg Tablet PO Not Given DAILY PENDING SALE TO [facility] Tiotropium [place] 1 puff 02/16/21 08:00 Tiotropium [place] 18 Mcg Cap.W.Dev INHALE RDAILY PENDING SALE TO [facility] Vitamin D 25 mcg 02/16/21 09:00 02/16/21 08:37 Cholecalciferol (Vitamin D3) 25 Mcg Tablet PO 25 mcg DAILY PENDING SALE TO [facility] Administration Home Medications Medication Instructions Recorded Confirmed Last Taken Type albuterol sulfate 90 mcg/actuation 2 puff INHALATION Q6H PRN 08/12/20 02/16/21 Unknown History aerosol inhaler aspirin 81 mg tablet,delayed 81 mg PO DAILY 08/12/20 02/16/21 Unknown History release atorvastatin 20 mg tablet 20 mg PO DAILY 08/12/20 02/16/21 Unknown History tiotropium bromide 18 mcg capsule 1 cap INHALATION DAILY 08/12/20 02/16/21 Unknown History with inhalation device thiamine HCl (vitamin B1) [Vitamin 100 mg PO DAILY 11/05/20 02/16/21 Unknown History B-1] cholecalciferol (vitamin D3) 25 mcg PO DAILY 11/07/20 02/16/21 Unknown History [Vitamin D3] folic acid 1 mg PO DAILY 11/07/20 02/16/21 Unknown History clopidogrel 1 tab PO DAILY 02/07/21 02/16/21 Unknown History Physical Exam Vital Signs: Vital Signs: Last Vital Signs Temp 98.4 F 02/16/21 07:44 Pulse 106 H 02/16/21 08:36 Resp 20 02/16/21 07:44 BP 124/78 02/16/21 08:36 Pulse Ox 99 02/16/21 07:44 Body Mass Index 19.1 Vital Signs: GENERAL APPEARANCE: Ill-appearing, frail. HEENT: unremarkable. HEAD: normocephalic, atraumatic. NECK/THYROID: no carotid bruit, no jugular venous distention. SKIN: Xanthelasma. HEART: no murmurs, irregular rate and rhythm, S1, S2 normal. LUNGS: diminished breath sounds. ABDOMEN: normal, bowel sounds present, soft, nontender, nondistended. EXTREMITIES: no clubbing, cyanosis, or edema. PERIPHERAL PULSES: equal. NEUROLOGIC: nonfocal, alert and oriented. PSYCH: depressed. Results Labs and Meds Result diagrams: 02/16/21 05:52 02/16/21 05:52 Lab results: Laboratory Results - last 24 hr 02/15/21 02/15/21 02/15/21 19:47 19:47 19:47 WBC 10.6 RBC 4.69 Hgb 12.8 L Hct 39.6 L MCV 84.4 MCH 27.3 MCHC 32.3 RDW 18.1 H Plt Count 233 MPV 10.6 Immature Gran % (Auto) 0.4 Neut % (Auto) 65.0 Lymph % (Auto) 18.3 L [place] % (Auto) 14.6 H Eos % (Auto) 1.6 Baso % (Auto) 0.1 Lymph # (Auto) 1.9 [place] # (Auto) 1.5 H Eos # (Auto) 0.2 Baso # (Auto) 0.0 Abs Immat Gran (auto) 0.04 H Absolute Neuts (auto) 6.9 Absolute Nucleated RBC 0.000 Nucleated RBC % (auto) 0.0 Smear Tech's Comments VERIFIED Hold Blue Top SEE NOTE Sodium 139 Potassium 3.6 Chloride 97 Carbon Dioxide 32 H Anion Gap 14 BUN 13 Creatinine 0.66 Estim Creat Clear Calc 94.3 Estimated GFR > 60 Random Glucose 94 Calcium 9.0 Magnesium Troponin I High Sens B-Natriuretic Peptide Digoxin COVID-19 (LYNDA) [facility]bird 02/15/21 02/15/21 02/15/21 19:47 19:47 21:17 WBC RBC Hgb Hct MCV MCH MCHC RDW Plt Count MPV Immature Gran % (Auto) Neut % (Auto) Lymph % (Auto) [place] % (Auto) Eos % (Auto) Baso % (Auto) Lymph # (Auto) [place] # (Auto) Eos # (Auto) Baso # (Auto) Abs Immat Gran (auto) Absolute Neuts (auto) Absolute Nucleated RBC Nucleated RBC % (auto) Smear Tech's Comments Hold Blue Top Sodium Potassium Chloride Carbon Dioxide Anion Gap BUN Creatinine Estim Creat Clear Calc Estimated GFR Random Glucose Calcium Magnesium Troponin I High Sens 20.6 D 20.1 B-Natriuretic Peptide 679 H Digoxin COVID-19 (LYNDA) [facility] 02/15/21 02/16/21 02/16/21 23:56 00:36 05:52 WBC 10.0 RBC 4.26 L Hgb 11.7 L Hct 35.9 L MCV 84.3 MCH 27.5 MCHC 32.6 RDW 18.2 H Plt Count 221 MPV 10.7 Immature Gran % (Auto) 0.5 H Neut % (Auto) 72.9 Lymph % (Auto) 11.7 L [place] % (Auto) 13.9 H Eos % (Auto) 0.9 Baso % (Auto) 0.1 Lymph # (Auto) 1.2 [place] # (Auto) 1.4 H Eos # (Auto) 0.1 Baso # (Auto) 0.0 Abs Immat Gran (auto) 0.05 H Absolute Neuts (auto) 7.3 Absolute Nucleated RBC 0.000 Nucleated RBC % (auto) 0.0 Smear Tech's Comments Hold Blue Top Sodium Potassium Chloride Carbon Dioxide Anion Gap BUN Creatinine Estim Creat Clear Calc Estimated GFR Random Glucose Calcium Magnesium Troponin I High Sens B-Natriuretic Peptide Digoxin < 0.3 L COVID-19 (LYNDA) Negative [facility]bird See Note 02/16/21 05:52 WBC RBC Hgb Hct MCV MCH MCHC RDW Plt Count MPV Immature Gran % (Auto) Neut % (Auto) Lymph % (Auto) [place] % (Auto) Eos % (Auto) Baso % (Auto) Lymph # (Auto) [place] # (Auto) Eos # (Auto) Baso # (Auto) Abs Immat Gran (auto) Absolute Neuts (auto) Absolute Nucleated RBC Nucleated RBC % (auto) Smear Tech's Comments Hold Blue Top Sodium 141 Potassium 3.1 L Chloride 95 L Carbon Dioxide 36 H Anion Gap 13 BUN 15 Creatinine 0.69 Estim Creat Clear Calc 90.2 Estimated GFR > 60 Random Glucose 122 H Calcium 8.9 Magnesium 1.6 Troponin I High Sens B-Natriuretic Peptide Digoxin COVID-19 (LYNDA) COVID-19 Clin Com Imaging Radiologist's impression: Impressions Chest X-Ray 02/15/21 19:11 IMPRESSION: No acute intrathoracic disease Assessment and Plan (1) Atrial fibrillation: Qualifiers: Atrial fibrillation type: longstanding persistent Qualified Code(s): I48.11 - Longstanding persistent atrial fibrillation Status: Acute (2) CAD (coronary artery disease): Status: Acute 65-year-old gentleman who is presenting for chest pain and atrial fibrillation. He has alcoholism. He has been admitted multiple times after drinking alcohol with AFib with RVR. Heart rate control is okay right now. Continue metoprolol and digoxin. Trying not to use diltiazem because it will raise digoxin level. With his alcoholism it will be difficult to control his heart rate. I have had detailed discussion with the patient and his family previously that if he continues to drink then we may not be able to have good control of his atrial fibrillation. He continues to drink vodka. I think in his case perfect management for AFib will not be possible. Chest pain is reproducible and noncardiac in origin. Thank you for allowing me to participate in the care of your patient. Please feel free to contact me if you have any questions.
[2021-02-16] MEDS: Potassium Chloride ER 20 MEQ TAB.ER.PRT 40 MEQ PO (10:53)
--- NOTE | 2021-02-16 12:15 | MHC.CM.PN ---
CM MET WITH PT AND HIS DAUGHTER, LISA WHO WAS AT BEDSIDE. PT LIVES WITH LISA AND HER FAMILY AND IS CURRENTLY ACTIVE WITH [facility]. PT ALSO HAS HOME OXYGEN PROVIDED BY [facility] AND USES A CANE TO AMBULATE. PCP CONFIRMED TO BE RANDAL WALKER AND PT HAS A HCP ON FILE. CURRENT DC PLAN IS HOME WITH RESUMTION OF [facility] PTS DAUGHTER WILL TRANSPORT
[2021-02-16] MEDS: Acetaminophen 325 MG TABLET 650 MG PO ×2 (13:58→21:27)
[2021-02-16] MEDS: Magnesium Oxide 400 MG TABLET PO (17:49)
[2021-02-16] MEDS: Enoxaparin Sodium 40 MG/0.4 ML SYRINGE SUBCUT (21:29)
[2021-02-16] MEDS: Albuterol Sulfate 90 MCG 8 GM INHALER 2 PUFF INHALE (21:56)
[2021-02-17] MEDS: 0.9 % Sodium Chloride Flush 3 ML SYRINGE IVFLUSH ×2 (01:24→09:52)
[2021-02-17 04:00] VITALS: BP 143/82; PULSE 77; RESP 18; TEMP 36.7; O2SAT 96
[2021-02-17 05:40] VITALS: BMI 19.5
[2021-02-17 06:59] LABS: Anion Gap 14 (12-20); Blood Urea Nitrogen 22 mg/dL (9-16); Calcium 8.8 mg/dL (8.4-10.2); Carbon Dioxide 33 mmol/L (22-29); Chloride 97 mmol/L (96-108); Creatinine Clr Calc Pharmacy 78.4; Estimated Glomerular Filt Rate > 60; Glucose Fasting 93 mg/dL (60-99); Magnesium 1.8 mg/dL (1.6-2.6); Potassium 3.5 mmol/L (3.3-5.1); Sodium 140 mmol/L (135-145)
[2021-02-17 07:01] LABS: Hematocrit 36.5 % (42-52); Hemoglobin 11.7 g/dl (14.0-18.0); Mean Corpuscular HGB Conc 32.1 g/dl (31.0-36.0); Mean Corpuscular Hemoglobin 27.2 pg (27.0-33.0); Mean Corpuscular Volume 84.9 fL (80-98); Mean Platelet Volume 11.2 fL (9.4-12.4); Platelet Count 243 X10*3/uL (160-400); Red Cell Distribution Width 18.4 % (11.0-16.0); White Blood Count 9.7 X10*3/uL (4.8-10.8)
[2021-02-17 08:00] VITALS: BP 114/84; PULSE 78; RESP 17; TEMP 36.3; O2SAT 95
[2021-02-17 08:01] VITALS: PULSE 91; O2SAT 93
[2021-02-17] MEDS: Magnesium Oxide 400 MG TABLET PO (09:50)
[2021-02-17] MEDS: Famotidine 20 MG TABLET PO (09:50)
[2021-02-17 09:51] VITALS: BP 114/84; PULSE 78
[2021-02-17] MEDS: Cholecalciferol (Vitamin D3) 25 MCG TABLET PO (09:51)
[2021-02-17] MEDS: Aspirin Enteric Coated 81 MG TABLET.DR PO (09:51)
[2021-02-17] MEDS: Folic Acid 1 MG TABLET PO (09:51)
[2021-02-17] MEDS: Digoxin 0.125 MG TABLET PO (09:51)
[2021-02-17] MEDS: Metoprolol Tartrate 100 MG TABLET PO (09:51)
[2021-02-17] MEDS: Thiamine HCL 100 MG TABLET PO (09:51)
[2021-02-17 09:52] VITALS: BP 114/84; PULSE 78
[2021-02-17] MEDS: predniSONE 20 MG TABLET 40 MG PO (09:52)
[2021-02-17] MEDS: Atorvastatin Calcium 20 MG TABLET PO (09:52)
[2021-02-17] MEDS: Nicotine 14 MG PATCH.TD24 TRANSDERMA (09:52)
[2021-02-17] MEDS: Clopidogrel Bisulfate 75 MG TABLET PO (09:52)
[2021-02-17] MEDS: dilTIAZem HCL 30 MG TABLET PO (09:52)
--- NOTE | 2021-02-17 10:56 | P.DS_ITS ---
DS: Providers Provider Date of Service: 02/17/21 Date of admission: 02/15/21 23:53 Primary care physician: Kym Sebastian MD Consults: 02/15/21 23:53 Consult to Cardiology Routine Consulting Provider: Luca Prado Reason for consultation: chest pain; chf DS: Diagnosis Discharge Diagnosis (1) Atrial fibrillation with RVR: Status: Acute (2) CHF (congestive heart failure): Status: Acute (3) Alcohol abuse: Status: Acute DS: Medications Discharge Medications Home Medications: Home Medications Medication Instructions Recorded Confirmed albuterol sulfate 90 mcg/actuation 2 puff INHALATION Q6H PRN 08/12/20 02/16/21 aerosol inhaler aspirin 81 mg tablet,delayed 81 mg PO DAILY 08/12/20 02/16/21 release atorvastatin 20 mg tablet 20 mg PO DAILY 08/12/20 02/16/21 tiotropium bromide 18 mcg capsule 1 cap INHALATION DAILY 08/12/20 02/16/21 with inhalation device thiamine HCl (vitamin B1) [Vitamin 100 mg PO DAILY 11/05/20 02/16/21 B-1] cholecalciferol (vitamin D3) 25 mcg PO DAILY 11/07/20 02/16/21 [Vitamin D3] folic acid 1 mg PO DAILY 11/07/20 02/16/21 clopidogrel 1 tab PO DAILY 02/07/21 02/16/21 Previous Rx's Medication Instructions Recorded digoxin 125 mcg (0.125 mg) tablet 125 mcg PO DAILY 30 Days #30 tab 11/11/20 metoprolol tartrate 100 mg tablet 100 mg PO BID 90 Days #180 tab 12/31/20 Spiriva with HandiHaler 18 mcg INHALATION RDAILY #30 inh 02/10/21 nicotine 14 mg TRANSDERMAL DAILY #28 ea 02/10/21 DS: Summary Hospital Course Hospital Course: This is a 73-year-old male who was recently admitted to [facility] for respiratory failure felt secondary to COPD and mild CHF exacerbations. He was treated with systemic steroids and IV diuretics were transitioned to oral meds. He was discharged home to continue treatment but presented back to the hospital about 5 days from discharge in rapid AFib with complaints of chest pain. He was admitted again for AFib with RVR and initially required IV Cardizem and was subsequently transitioned to oral Cardizem. He was evaluated by Cardiology who recommended using digoxin and metoprolol and to discontinue Cardizem as Cardizem a increases digoxin levels. With metoprolol and digoxin, his heart rate remained controlled. Discussion was held with the patient as well as patient's family about complete cessation from alcohol as this was the likely cause along with noncompliance with his home medications. He will be discharged homeWith resumption of [facility]. Of note, the patient was not on any diuretics and will be discharged home on oral Lasix 20 mg. Patient remains at high risk for re-hospitalization due to his noncompliance as well as continue alcohol use. Time Spent with Patient Time attestation: Total time spent providing and/or coordinating discharge services: Discharge coordination time: Greater than 30 minutes Quality: Stroke Does the patient have a stroke diagnosis?: No Physical Exam Vital Signs: Vital Signs: Last Vital Signs Temp 97.3 F 02/17/21 08:00 Pulse 78 02/17/21 09:52 Resp 17 02/17/21 08:00 BP 114/84 02/17/21 09:52 Pulse Ox 95 02/17/21 08:00 Body Mass Index 19.5 Const: Other: General - no acute distress, appears comfortable Cardiovascular - S1S2 Lungs - normal respiratory effort, clear to auscultation bilaterally, no wheezing Abdomen - soft, nontender, no rebound or guarding Extremities - no edema bilaterally Neuro - awake and alert, no focal deficits DS: Data Data Completed and Pending Completed studies during hospitalization [Text1]: Procedures Detoxification Services for Substance Abuse Treatment (10/19/20) Labs on day of discharge: Laboratory Results - last 24 hr 02/17/21 02/17/21 05:35 05:35 WBC 9.7 RBC 4.30 L Hgb 11.7 L Hct 36.5 L MCV 84.9 MCH 27.2 MCHC 32.1 RDW 18.4 H Plt Count 243 MPV 11.2 Absolute Nucleated RBC 0.000 Nucleated RBC % (auto) 0.0 Sodium 140 Potassium 3.5 Chloride 97 Carbon Dioxide 33 H Anion Gap 14 BUN 22 H Creatinine 0.76 Estim Creat Clear Calc 78.4 Estimated GFR > 60 Fasting Glucose 93 Calcium 8.8 Magnesium 1.8 Discharge Plan Discharge Patient Disposition: Home Health Service Discharge Diagnosis: A. Fib RVR, Alcohol Use Referrals: Kym Sebastian MD [Primary Care Provider] - 1 Week Discharge Medications: New furosemide [Lasix] 20 mg tablet 20 mg PO QAM Qty: 30 RF: 0 Continued metoprolol tartrate [Lopressor] 100 mg tablet 100 mg PO BID 90 Days Qty: 180 RF: 1 thiamine HCl (vitamin B1) [Vitamin B-1] 100 mg Tablet 100 mg PO DAILY RF: 0 folic acid 1 mg Tablet 1 mg PO DAILY RF: 0 cholecalciferol (vitamin D3) [Vitamin D3] 25 mcg (1,000 unit) Capsule 25 mcg PO DAILY RF: 0 clopidogrel 75 mg tablet 1 tab PO DAILY RF: 0 nicotine 14 mg/24 hr Patch 24 Hour 14 mg transdermal DAILY Qty: 28 RF: 0 Spiriva with HandiHaler 18 mcg Capsule, W/Inhalation Device 18 mcg inhalation RDAILY Qty: 30 RF: 0 aspirin 81 mg tablet,delayed release (DR/EC) 81 mg PO DAILY RF: 0 atorvastatin 20 mg tablet 20 mg PO DAILY RF: 0 albuterol sulfate [ProAir HFA] 90 mcg/actuation HFA aerosol inhaler 2 puff inhalation Q6H PRN (Reason: Wheezing) RF: 0 Spiriva with HandiHaler 18 mcg capsule, w/inhalation device 1 cap inhalation DAILY RF: 0 digoxin 125 mcg (0.125 mg) tablet 125 mcg PO DAILY 30 Days Qty: 30 RF: 5 Discontinued prednisone 20 mg tablet 40 mg PO DAILY 4 Days Qty: 8 RF: 0 cefuroxime axetil 500 mg Tablet 500 mg PO Q12H Qty: 6 RF: 0 diltiazem HCl 30 mg Tablet 30 mg PO BID Qty: 60 RF: 0 azithromycin 500 mg Tablet 500 mg PO Q24H Qty: 3 RF: 0 Discharge Orders: Discharge Order (Routine); Ordered 02/17/21 Ordered By: Minor Gutierrez Diet: advance to usual diet Activity on Discharge: As tolerated Stand Alone Forms: Patient Portal Discharge page Care Plan Goals: To stay healthy and out of the hospital. Health Concerns: A. Fib RVR alcohol use Plan of Treatment: Take your heart medications as prescribed. Stop taking cardizem. Continue digoxin and metoprolol. Do not drink alcohol. Assessment: 65 yo M admitted for A. Fib RVR, treated with IV cardizem and transitioned to his baseline oral meds.
--- NOTE | 2021-02-17 11:09 | MHC.CM.PN ---
Patient has been medically cleared for dc to home today, with services. Patient was active with [facility], who has been made aware of today's dc.
[2021-02-17 11:29] VITALS: BP 106/64; PULSE 72; RESP 18; TEMP 36.7; O2SAT 98
--- NOTE | 2021-02-17 12:05 | PM.PNCARD ---
Subjective Subjective Date of Service: 02/17/21 Principal diagnosis: Atrial fibrillation Interval history: Patient currently does not present any symptoms. Denies palpitations or chest pain. Heart rate remains adequately control. Review of Systems Constitutional: Reports no additional constitutional complaints Cardiovascular: Reports no additional cardiovascular complaints Respiratory: Reports no additional respiratory complaints Gastrointestinal: Reports no additional gastrointestinal complaints Genitourinary: Reports no additional male genitourinary complaints Reports system reviewed and no additional complaints, except as documented Psychiatric: Reports no additional psychiatric complaints Endocrine: Reports no additional endocrine complaints Physical Exam Vital Signs: Last Vital Signs Temp 98.0 F 02/17/21 11:29 Pulse 72 02/17/21 11:29 Resp 18 02/17/21 11:29 BP 106/64 02/17/21 11:29 Pulse Ox 98 02/17/21 11:29 Body Mass Index 19.5 Const General: cooperative, comfortable, no acute distress, alert and awake Nutritional Appearance: thin Orientation/consciousness: patient oriented x3 Neck Neck: Yes trachea midline, Yes supple and Yes no JVD Cardio Jugular venous distension: no JVD and other (Well-healed sternotomy scar) Rhythm: abnormal rhythm irregularly irregular Heart sounds: S1 normal heart sound present and S2 normal heart sound present GI Auscultation: normal bowel sounds Neuro General: patient oriented x3 and no focal motor deficits Extrem General: Yes no clubbing, cyanosis or edema Results Labs and Meds Result diagrams: 02/17/21 05:35 02/17/21 05:35 Lab results: Laboratory Results - last 24 hr 02/17/21 02/17/21 05:35 05:35 WBC 9.7 RBC 4.30 L Hgb 11.7 L Hct 36.5 L MCV 84.9 MCH 27.2 MCHC 32.1 RDW 18.4 H Plt Count 243 MPV 11.2 Absolute Nucleated RBC 0.000 Nucleated RBC % (auto) 0.0 Sodium 140 Potassium 3.5 Chloride 97 Carbon Dioxide 33 H Anion Gap 14 BUN 22 H Creatinine 0.76 Estim Creat Clear Calc 78.4 Estimated GFR > 60 Fasting Glucose 93 Calcium 8.8 Magnesium 1.8 Progress Note: A&P Assessment and plan (1) Atrial fibrillation: Status: Acute Assessment and Plan: Atrial fibrillation appears to be persistently for the last few months. Presented multiple hospitalizations with rapid ventricular response. Currently rate is adequately controlled. Continue current rate control strategy. Importance of rate control was discussed. Has not been able to participate in rhythm control approach due to his recurrent alcohol use which precludes use of oral anticoagulant therapy. Importance of complete abstinence from alcohol was discussed. Can discharge from cardiac perspective today. Will set up for outpatient Holter monitor and follow-up. Discussed with him that he cannot be on oral anticoagulant daily uses significant alcohol as this may increase his bleeding risk. He was nonchalant about heart failure discussed. Did not come in to reducing alcohol use. (2) CAD (coronary artery disease): Status: Acute Assessment and Plan: Coronary artery disease status post coronary artery bypass grafting. Blood pressure is optimized. Currently on aspirin therapy. Continue high-intensity statin therapy. Will follow up in the clinic in 4 weeks time, sooner p.r.n.. Thank you for allowing me to partake in his care Fall Risk Details Current Medications: Current Medications Generic Name Dose Route Start Last Admin Trade Name Freq PRN Reason Stop Dose Admin Acetaminophen 650 mg 02/16/21 12:32 02/16/21 21:27 Acetaminophen 325 Mg Tablet PO 650 mg Q6H PRN Administration pain Albuterol Sulfate 2 puff 02/16/21 03:22 02/16/21 21:56 Albuterol Sulfate 90 Mcg 8 Gm Inhaler INHALE 2 puff Q6H PRN Administration Wheezing Aspirin 81 mg 02/16/21 09:00 02/17/21 09:51 Aspirin Enteric Coated 81 Mg Tablet. PO 81 mg DAILY JASPAL Administration Atorvastatin Calcium 20 mg 02/16/21 09:00 02/17/21 09:52 Atorvastatin Calcium 20 Mg Tablet PO 20 mg DAILY JASPAL Administration Clopidogrel Bisulfate 75 mg 02/16/21 09:00 02/17/21 09:52 Clopidogrel Bisulfate 75 Mg Tablet PO 75 mg DAILY JASPAL Administration Digoxin 0.125 mg 02/16/21 09:00 02/17/21 09:51 Digoxin 0.125 Mg Tablet PO 0.125 mg DAILY JASPAL Administration Enoxaparin Sodium 40 mg 02/15/21 22:00 02/16/21 21:29 Enoxaparin Sodium 40 Mg/0.4 Ml Syringe SUBCUT 40 mg Q24H JASPAL Administration Famotidine 20 mg 02/16/21 09:00 02/17/21 09:50 Famotidine 20 Mg Tablet PO 20 mg BID JASPAL Administration Folic Acid 1 mg 02/16/21 09:00 02/17/21 09:51 Folic Acid 1 Mg Tablet PO 1 mg DAILY JASPAL Administration Lorazepam 1 mg 02/16/21 00:03 Lorazepam 1 Mg Tablet PO 02/20/21 00:02 Q4H PRN Breakthrough alcohol withdrawa Magnesium Hydroxide 30 ml 02/15/21 23:53 Milk Of Magnesia 30 Ml Oral.Susp PO DAILY PRN Constipation Magnesium Oxide 400 mg 02/16/21 17:30 02/17/21 09:50 Magnesium Oxide 400 Mg Tablet PO 400 mg BIDPC JASPAL Administration Metoprolol Tartrate 100 mg 02/16/21 09:00 02/17/21 09:51 Metoprolol Tartrate 100 Mg Tablet PO 100 mg BID [facility] Administration Protocol Multivitamins 1 tab 02/16/21 09:00 02/17/21 09:51 B-Complex With Vitamin C Tablet PO 1 tab DAILY JASPAL Administration Nicotine 14 mg 02/16/21 09:00 02/17/21 09:52 Nicotine 14 Mg Patch.Td24 TRANSDERMA 14 mg DAILY JASPAL Administration Nitroglycerin 0.4 mg 02/15/21 23:53 02/16/21 03:20 Nitroglycerin 0.4 Mg Tab.Subl SUBLINGUAL 0.4 mg Q5M PRN Administration Chest Pain Prednisone 40 mg 02/16/21 09:00 02/17/21 09:52 Prednisone 20 Mg Tablet PO 40 mg DAILY JASPAL Administration Sodium Chloride 3 ml 02/16/21 00:00 02/17/21 09:52 0.9 % Sodium Chloride Flush 3 Ml Syringe IVFLUSH 3 ml QSHIFT [facility] Administration Thiamine HCl 100 mg 02/16/21 09:00 02/17/21 09:51 Thiamine Hcl 100 Mg Tablet PO 02/19/21 08:59 100 mg DAILY JASPAL Administration Thiamine HCl 100 mg 02/16/21 09:00 02/17/21 09:53 Thiamine Hcl 100 Mg Tablet PO Not Given DAILY [facility] Tiotropium [place] 1 puff 02/16/21 08:00 02/17/21 07:58 Tiotropium [place] 18 Mcg Cap.W.Dev INHALE 1 puff RDAILY [facility] Administration Vitamin D 25 mcg 02/16/21 09:00 02/17/21 09:51 Cholecalciferol (Vitamin D3) 25 Mcg Tablet PO 25 mcg DAILY JASPAL Administration Time Spent With Patient Time: Total time spent is greater than 50% in coordination of care (as documented) at patient's floor/unit and/or counseling patient: Time with patient: 15 - 24 minutes Procedures Date of Service Date of Service: 02/17/21
== END 2021-02-17 12:10 | disposition home health service (06) | DRG 194 ==
LOC: HO.ED 23:53 → HO.EDOVER 02-16 01:15 → HO.IMC 02-16 01:49
PROVIDERS: Internal Medicine; Nurse Practitioner Family; Admitting Provider Hospitalist; Emergency Provider Emergency Medicine; PCP Student in an Organized Health Care Education/Training Program; Visit Provider Family Medicine
DX: I50.23 Acute on chronic systolic (congestive) heart failure (principal); I48.11 Longstanding persistent atrial fibrillation; Z95.1 Presence of aortocoronary bypass graft; E78.5 Hyperlipidemia, unspecified; F17.210 Nicotine dependence, cigarettes, uncomplicated; F10.10 Alcohol abuse, uncomplicated; I25.10 Atherosclerotic heart disease of native coronary artery without angina pectoris; Z71.6 Tobacco abuse counseling; Z91.14 Patient's other noncompliance with medication regimen; Z20.822 Contact with and (suspected) exposure to COVID-19; Z79.02 Long term (current) use of antithrombotics/antiplatelets; Z79.82 Long term (current) use of aspirin; Z79.899 Other long term (current) drug therapy
CPT/HCPCS: 36415; 71045; 80048; 80162; 83735; 83880; 84484; 85025; 85027; 87635; 93005; 94640; 96372; 96374; 96375; 99219; 99285; 99291; J1650; J1940

== ENCOUNTER → 2021-02-20 15:41 | Outpatient (BNVA) | payer MEDICAID, SELFPAY | PROVIDERS: PCP Student in an Organized Health Care Education/Training Program; Visit Provider Internal Medicine Cardiovascular Disease | DX: I48.0 Paroxysmal atrial fibrillation (principal); F10.10 Alcohol abuse, uncomplicated | CPT/HCPCS: 93005; 99212 ==

== ENCOUNTER → 2021-03-17 15:12 | Outpatient (BNVA) | payer MEDICAID, SELFPAY | PROVIDERS: PCP Student in an Organized Health Care Education/Training Program; Visit Provider Internal Medicine | DX: F10.10 Alcohol abuse, uncomplicated (principal); J44.0 Chronic obstructive pulmonary disease with (acute) lower respiratory infection; J18.9 Pneumonia, unspecified organism; Z72.0 Tobacco use | CPT/HCPCS: 99202 ==

== ENCOUNTER 2021-03-27 14:00 | Outpatient (REF) | payer MEDICAID, SELFPAY ==
--- NOTE | 2021-03-27 17:03 | PFT_ITS ---
FLOWS: FEV1 of 24% of predicted at 0.84 L. FVC 69% of predicted at 3.22 L. FEV1 to FVC ratio of 0.26. Positive bronchodilator response. LUNG VOLUMES: Total lung capacity 78% of predicted at 5.19 L. Residual volume 127% of predicted at 2.98 L. Slow vital capacity 53% of predicted at 2.50 L. Expiratory reserve volume 69% of predicted at 0.93 L. Diffusion capacity is severely decreased. IMPRESSION: Very severe obstructive ventilatory defect with positive bronchodilator response combined with restrictive ventilatory defect. Increased residual volume suggests air trapping. Decreased diffusion capacity suggests emphysema. Beltran Calvin MD AP/MODL / [id number]
== END 2021-03-27 14:01 | disposition home or self-care (01) ==
LOC: HO.RESP 14:00
PROVIDERS: PCP Student in an Organized Health Care Education/Training Program; Visit Provider Internal Medicine
DX: J44.9 Chronic obstructive pulmonary disease, unspecified (principal); Z72.0 Tobacco use
CPT/HCPCS: 94060; 94727; 94729

== ENCOUNTER → 2021-05-01 14:08 | Outpatient (BNVA) | payer MEDICAID, SELFPAY | PROVIDERS: PCP Student in an Organized Health Care Education/Training Program; Referring Provider Student in an Organized Health Care Education/Training Program; Visit Provider Internal Medicine Cardiovascular Disease | DX: I48.91 Unspecified atrial fibrillation (principal); R60.9 Edema, unspecified | CPT/HCPCS: 99212 ==

== ENCOUNTER → 2021-05-15 15:32 | Outpatient (BNVA) | payer MEDICAID, SELFPAY | PROVIDERS: PCP Student in an Organized Health Care Education/Training Program; Visit Provider Internal Medicine | DX: J44.0 Chronic obstructive pulmonary disease with (acute) lower respiratory infection (principal); Z72.0 Tobacco use | CPT/HCPCS: 99212 ==

== ENCOUNTER → 2021-08-14 14:09 | Outpatient (BNVA) | payer MEDICAID, SELFPAY | PROVIDERS: PCP Student in an Organized Health Care Education/Training Program; Visit Provider Internal Medicine ==

== ENCOUNTER → 2022-07-16 13:29 | Outpatient (BNVA) | payer MEDICARE, MEDICAID, SELFPAY | PROVIDERS: PCP Student in an Organized Health Care Education/Training Program; Visit Provider Internal Medicine | DX: J44.0 Chronic obstructive pulmonary disease with (acute) lower respiratory infection (principal); F10.10 Alcohol abuse, uncomplicated; R09.02 Hypoxemia; F17.210 Nicotine dependence, cigarettes, uncomplicated | CPT/HCPCS: 94618; 99212 ==

== ENCOUNTER → 2022-09-02 13:24 | Outpatient (BNVA) | payer MEDICARE, MEDICAID, SELFPAY | PROVIDERS: PCP Student in an Organized Health Care Education/Training Program; Referring Provider Student in an Organized Health Care Education/Training Program; Visit Provider Nurse Practitioner Family | DX: I48.91 Unspecified atrial fibrillation (principal); I25.10 Atherosclerotic heart disease of native coronary artery without angina pectoris; R60.9 Edema, unspecified; Z95.1 Presence of aortocoronary bypass graft | CPT/HCPCS: 93005; 99212 ==

== ENCOUNTER → 2022-09-16 08:39 | Outpatient (REF) | payer MEDICARE, MEDICAID, SELFPAY ==
--- NOTE | ~2022-09-16 | NM_ITS ---
Myocardial perfusion study Indication: Remote coronary artery bypass grafting to evaluate for myocardial ischemia Technique: The patient was brought in for a Lexiscan perfusion study on 09/16/2022. Patient performed low-level exercise and was injected 0.4 mg of Lexiscan intravenously. Within a minute of injection, 25 mCi of sestamibi was given intravenously. Images were obtained using the SPECT gamma camera interlaced with the gating device. Images were obtained in supine position. Resting perfusion study was performed on 09/17/2022. Patient was administered 25 mCi of sestamibi intravenously at rest. Images were then obtained in supine position. Images obtained with and without CT attenuation. Total DLP 74 mGy-cm. Images were processed with the software and compared side to side in short axis, horizontal long axis and vertical long axis views. Findings: The stress perfusion study showed non attenuated images show mildly reduced uptake in the basal anteroseptal as well as inferoseptum and mildly reduced uptake in the inferior wall of the LV myocardium more prominent in the inferoapical wall. Attenuation corrected images show normal uptake of radiotracer in all segments of LV myocardium. The gated study shows reduced LV systolic function with calculated LVEF of 47%. LV cavity is mildly dilated size. The gated study shows normal wall thickening and contraction of segments. Resting study shows no change in perfusion pattern compared to stress perfusion study. Gating at rest reveals normal systolic wall motion with ejection fraction at 45%. The findings are consistent with normal myocardial perfusion. NM/NM jose perf SPECT rest & str Impression: 1. Myocardial perfusion imaging study shows normal myocardial perfusion 2. Gated LVEF is 47% 3. Transient ischemic dilatation not present but LV cavity is dilated EKG is nondiagnostic for ischemia
--- NOTE | 2022-09-16 08:44 | CA_ITS ---
Acquisition Time: 2022-09-16 09:58:59 Total Exercise Time: 00:02:00 Test Indications: Chest Pain Medications: See H Protocol: LEXISCAN Max HR: 101 BPM 65% of Pred: 154 BPM Max BP: 110/064 mmHG Max Work Load: 1.0 METS Pharmacological stress test with Lexiscan injection, while sitting and kicking his right leg, with moderate shortness of breath post injection, no chest discomfort, with isolated PVCs, with normotensive response to injection, with nondiagnostic EKG for ischemia. In recovery he was treated with Aminopylline 75mg IVP to reverse Lexiscan with improvement in breathing. Nuclear images pending. Test reviewed with Dr Richardson. Referred By: Deepthi Silva Overread By: DEEPTHI SILVA
--- NOTE | 2022-09-16 08:44 | CA_ITS ---
Transthoracic Echocardiogram Patient (Last, First, Middle): Noble Valencia F Gender: Male Date of : 1955 Age: 67 Procedure Date: 09/16/2022 Procedure Type: Transthoracic Echocardiogram Location: OP Height: 172.72 cm Weight: 61.24 kg BSA: 1.73 m2 Heart Rate: bpm BP: 126 / 80 mmHg Profiling Machine Set Up Operator: BLUE Referring MD: Deepthi Silva STEAM ROOM ATTENDANT-Juan Manuel Symptoms: R07.9 - Chest pain, unspecified Study Quality: Fair ECG Rhythm: Atrial Fibrillation Conclusions: - The left ventricular systolic function is moderate to severely decreased. The visually estimated ejection fraction is between 30-35%. - The inferior wall and basal inferoseptal segment are akinetic. - There is mild to moderate tricuspid valve regurgitation. - The right ventricular systolic pressure is 65 mmHg. Moderate to severe pulmonary hypertension is present. Findings Left Ventricle Normal left ventricular cavity size. There is normal left ventricular wall thickness. The left ventricular systolic function is moderate to severely decreased. The visually estimated ejection fraction is between 30-35%. There is moderate global hypokinesis. Diastolic function is normal for age. Wall Motion Rest Echo Findings The inferior wall and basal inferoseptal segment are akinetic. Right Ventricle Normal right ventricular cavity size. Atria Both atria are normal in size. Aortic Valve The aortic valve was not well visualized. There is no aortic valve stenosis. There is no aortic valve regurgitation. Mitral Valve The mitral valve appears normal. There is trace mitral valve regurgitation. There is no mitral valve stenosis. Pulmonic Valve The pulmonic valve is likely normal. Tricuspid Valve Normal tricuspid valve structure. There is mild to moderate tricuspid valve regurgitation. The right ventricular systolic pressure is 65 mmHg. Moderate to severe pulmonary hypertension is present. Great Vessels The asc aorta is normal in size. Venous The inferior vena cava is mildly dilated and collapses greater than 50% with inspiration. Pericardium/Pleural There is no evidence of pericardial effusion. Prior Study Comparison Changes noted compared to prior study dated: 08/19/2020. LVEF lower. Wall motion abnormalities more prominent. RVSP higher. Measurements 2D Linear Measurements IVSd: 0.85 0.6-0.9/0.6-1.0 cm LVIDd: 4.52 3.9-5.3/4.2-5.9 cm LVIDd Index: 2.61 2.4-3.2/2.2-3.1 cm/m2 LVIDs: 4.26 2.0-3.6 cm LVPWd: 0.91 0.7-1.1 cm Ao Root: 3.20 2.1-3.5 cm LA Diam: 4.30 2.7-3.8/3.0-4.0 cm LAIDs Index: 2.49 1.5-2.3 cm/m2 LV Mass: 161.17 67-162/88-224 g LV Mass Index: 93.16 43-95/49-115 g/m2 LVOT Diam: 2.00 3.0+(-)1.3 cm 2D Systolic Function EF 4C: 17.10 >55% EF 2C: 31.50 >55% EF BiP: 23.10 >55% Mitral Valve MV Pk E: 0.77 MV Decel Time: 162.00 E'Lateral: 12.40 E'Medial: 8.81 E/E' Med: 8.70 E/E' Lat: 6.20 PHT: 47.00 MVA PHT: 4.68 Decel [place]: 4.74 Aortic Valve AoV Pk Sang: 0.97 AoV Mn Sang: 0.68 AoV VTI: 0.20 AoV Pk Grad: 4.00 Aov Mn Grad: 2.00 KWESI Cont.VTI: 1.90 LVOT LVOT Pk Sang: 0.74 LVOT Mn Sang: 0.43 LVOT VTI: 0.12 LVOT Pk Grad: 2.00 LVOT Mn Grad: 1.00 LVOT Diam: 2.00 LVOT Area: 3.14 Diastolic Function MV Pk E: 0.77 E'Medial: 8.81 E/E' Med: 8.70 E' Laterial: 12.40 E/E' Lat: 6.20 Right Ventricle TVS' Sang: 9.00 Tricuspid Valve TR Pk Sang: 3.76 TR Pk Grad: 57.00 RA Press: 8.00 RVSP: 65.00 Great Vessels Aorta Ao Root-2D: 3.20 2.0-3.7 cm Ao Asc: 3.10 2.1-3.4 cm Pulmonary Valve PV Pk Sang: 0.81 Peak PV Grad: 3.00 Updated in Other Vendor System with Status of Final Walter Richardson MD electronically signed on 09/19/2022 1:59:10 PM with status of Final
== END ==
LOC: HO.CARD 08:39
PROVIDERS: PCP Student in an Organized Health Care Education/Training Program; Visit Provider Nurse Practitioner Family
DX: R07.9 Chest pain, unspecified (principal); I25.10 Atherosclerotic heart disease of native coronary artery without angina pectoris; I48.91 Unspecified atrial fibrillation; Z95.1 Presence of aortocoronary bypass graft
CPT/HCPCS: 78452; 93017; 93306; A9500; J0280; J2785

== ENCOUNTER → 2022-10-02 15:04 | Outpatient (REF) | payer MEDICARE, MEDICAID, SELFPAY ==
--- NOTE | 2022-10-02 15:08 | HM_ITS ---
* Total monitoring time 3 days. * Underlying rhythm is atrial fibrillation. Average ventricular rate 76/Min. Range 43-76/Min. * No significant pauses or bradycardia. * Frequent PVCs; burden of 7%. Some couplets, triplets, bigeminy and trigeminy. 3 NSVT episodes; longest 4 beats. * Shortness of breath, pain, in patient diary correlates with atrial fibrillation, underlying rhythm. MTDD
== END ==
LOC: HO.CARD 15:04
PROVIDERS: PCP Student in an Organized Health Care Education/Training Program; Visit Provider Nurse Practitioner Family
DX: I48.91 Unspecified atrial fibrillation (principal)
CPT/HCPCS: 93242

== ENCOUNTER 2022-10-09 09:15 | Inpatient (IN) | payer MEDICARE, MEDICAID, SELFPAY ==
[2022-10-09] VITALS (13 sets, daily range): BP systolic 102–136; BP diastolic 57–93; PULSE 62–111; RESP 14–22; TEMP 36.4–36.6; O2SAT 2–100; BMI 20.1
--- NOTE | ~2022-10-09 | CT_ITS ---
EXAMINATION: CT CHEST WITHOUT CONTRAST CLINICAL INFORMATION: Question pneumonia. Abnormal chest radiograph. COMPARISON: Chest radiograph from today. CT 02/06/2021 TECHNIQUE: Multidetector volumetric CT imaging of the chest was done. Axial MIP volume rendering provided. Sagittal and coronal reformatted images were obtained. This CT examination was performed using dose optimization techniques as appropriate, variously including the following: *Automated exposure control *Adjustment of mA and/or kV according to patient size (this includes techniques or standardized protocols for targeted exams where dose is matched to indication/reason for exam; i.e. extremities or head) *Use of iterative reconstruction technique DLP:. 178 mGy-cm FINDINGS: ASSESSMENT SPECIALIST: Hyperexpanded lungs. Median sternotomy wires in place. LUNGS: The central airways are patent. There is severe centrilobular and paraseptal emphysema. Prominent bulla at the anterior right base. This is increased from the 2020 study. There is no dense consolidation. No suspicious pulmonary nodules. Mild bronchial wall thickening throughout with scattered bronchial filling defects. MEDIASTINUM: Normal heart size. Dense coronary artery calcifications. No pericardial effusion. No mediastinal lymphadenopathy. CORONARY ARTERY CALCIFICATION: Present. PLEURA: There is no pleural effusion. No pneumothorax. AXILLA: No lymphadenopathy. UPPER ABDOMEN: Unremarkable. OSSEOUS STRUCTURES: No acute or suspicious osseous abnormality. Multilevel vertebral body compression deformities are unchanged. Degenerative changes throughout the spine. Status post median sternotomy. CT/CT chest wo IV con IMPRESSION: Severe emphysema. Bronchial wall thickening with scattered bronchial filling defects could be associated with acute or chronic bronchitis. No dense consolidation. Fleischner guidelines were followed.
--- NOTE | ~2022-10-09 | XR_ITS ---
EXAMINATION: XR CHEST CLINICAL INFORMATION: Shortness of breath COMPARISON: 02/15/2021 TECHNIQUE: Frontal view of the chest was obtained. FINDINGS: Median sternotomy wires appear intact. Cardiac leads overlie the chest. Hyperexpanded lungs. No dense consolidation. Hazy opacities in the perihilar regions are noted. No pleural effusion or pneumothorax. The cardiomediastinal silhouette is within normal limits of size with a calcified aorta. XR/XR chest 1V IMPRESSION: Hyperexpanded lungs. Hazy perihilar opacities are noted which could be associated with infectious or inflammatory process, though this could be secondary to overlying soft tissue. Dedicated PA radiograph could be useful if clinically indicated.
--- NOTE | 2022-10-09 09:22 | ECG_ITS ---
Test Reason : chest pain Blood Pressure : / mmHG Vent. Rate : 052 BPM Atrial Rate : 000 BPM P-R Int : 000 ms QRS Dur : 088 ms QT Int : 432 ms P-R-T Axes : 000 090 -69 degrees QTc Int : 401 ms Atrial fibrillation with slow ventricular response Rightward axis T wave abnormality, consider inferior ischemia Abnormal ECG When compared with ECG of 15-FEB-2021 23:46, Vent. rate has decreased BY [address] no longer depressed in Anterolateral leads QT has shortened Referred By: Ronak Kaplan Electronically Signed By:DAWOOD STARR
--- NOTE | 2022-10-09 09:31 | PC.NURSE ---
pt is refusing care. and hot metal charger (nathalia) has encouraged pt to receive care. pt has been received information by md about benefits/negative outcome of not being treated. pt is refusing lab work and iv (heplock). pt is on bipap 12/ at 30%.
--- NOTE | 2022-10-09 09:33 | ED_ITS ---
HPI - SOB/Dyspnea General Chief Complaint: Upper Respiratory Symptoms Stated Complaint: DIFF BREATHING Time Seen by Provider: 10/09/22 09:18 Source: patient and EMS Mode of arrival: EMS History of Present Illness HPI Narrative: This is 67 years old man presents to the emergency department complaining of shortness of breath he was brought here by the creative intern was placed on BiPAP, denies any fever chills vomiting or diarrhea. Refused the IV in the ambulance MD elicited complaint: shortness of breath Pertinent past history: COPD Onset (ago): hour(s) (6) Severity: moderate Exacerbating factors: nothing Relieving factors: nothing Known history of: COPD and congestive heart failure Related Data Home Medications Medication Instructions Recorded Confirmed albuterol sulfate 90 mcg/actuation 2 puff inhalation Q6H PRN Wheezing 08/12/20 10/09/22 aerosol inhaler (ProAir HFA) aspirin 81 mg tablet,delayed 81 mg PO DAILY 08/12/20 10/09/22 release thiamine HCl (vitamin B1) 100 mg 100 mg PO DAILY 11/05/20 10/09/22 tablet (Vitamin B-1) cholecalciferol (vitamin D3) 25 25 mcg PO DAILY 11/07/20 10/09/22 mcg (1,000 unit) capsule (Vitamin D3) folic acid 1 mg tablet 1 mg PO DAILY 11/07/20 10/09/22 umeclidinium 62.5 mcg/actuation 1 inh inhalation BEDTIME 07/16/22 10/09/22 blister powder for inhalation (Incruse Ellipta) atorvastatin 20 mg tablet 1 tab PO DAILY 10/09/22 10/09/22 metoprolol tartrate 100 mg tablet 100 mg PO BID 10/09/22 10/09/22 (Lopressor) metoprolol tartrate 50 mg tablet 50 mg PO DAILY 10/09/22 10/09/22 Previous Rx's Medication Instructions Recorded fluticasone 250 mcg-salmeterol 50 1 inh inhalation BID COPD 30 days 07/16/22 mcg/dose blistr powdr for #60 ea inhalation (Wixela Inhub) digoxin 125 mcg (0.125 mg) tablet 125 mcg PO DAILY 90 days #90 tabs 08/05/22 furosemide 20 mg tablet (Lasix) 20 mg PO DAILY PRN edema 30 days 08/11/22 #90 tabs Allergies Allergy/AdvReac Type Severity Reaction Status Date / Time No Known Allergies Allergy Verified 09/02/22 13:35 [No Known Allergies*] Review of Systems Constitutional: Constitutional: Reports no additional constitutional complaints ENT: Reports system reviewed and no additional complaints, except as documented Cardiovascular: Cardiovascular: Reports no additional cardiovascular complaints Respiratory: Respiratory: Reports no additional respiratory complaints [facility] Past Medical History Medical History Alcohol abuse Atherosclerotic cardiovascular disease Atrial fibrillation CAD (coronary artery disease) CHF (congestive heart failure) Chronic respiratory failure COPD (chronic obstructive pulmonary disease) History of ischemic cardiomyopathy Hypercholesteremia Hypoxemia Myocardial infarction Paroxysmal atrial fibrillation Tobacco abuse Surgical History H/O heart bypass surgery History of surgery on lower extremity Status post aorto-coronary artery bypass graft Social History Social History Household Members: Children Household Members Other:: CHILDREN,GRANDCHILDREN Housing: House Do you presently have visiting nurse or other home services: No Alcohol intake: never Cigarette Packs Per Day: 1 Cigarettes Per Day: 20.0 Years Smoked: 40+ Smoked in Last 30 Days: No Second Hand Smoke Exposure: Yes Use of substances other than those prescribed or required for medical reasons: No Advance Directives: Yes Advance Directives on File: Yes Advance Directives Date on File: 11/08/20 service: No Current occupational status: retired Physical Exam Vital Signs: Vital Signs: Last Vital Signs Temp 97.9 F 10/09/22 16:08 Pulse 85 10/09/22 16:08 Resp 14 10/09/22 16:08 BP 129/75 10/09/22 16:08 Pulse Ox 93 10/09/22 16:08 O2 Del Method 10/09/22 16:08 O2 Flow Rate 3 10/09/22 16:08 Oxygen Flow Rate 3 10/09/22 15:15 BMI result Body Mass Index 20.1 Const: General: alert and awake Nutritional Appearance: average body habitus Orientation/consciousness: patient oriented x3 HEENT: Head: Yes normal to inspection General nose exam: Normal external nose present Face and sinus: Yes normal facial exam Mouth: Normal oral and palatal mucosa present Neck: Neck: Yes normal visual inspection and Yes full ROM Chest: Chest palpation & inspection: normal inspection of the chest Resp: Effort & Inspection: tachypneic and prolonged expiratory phase Auscultation: rhonchi and breath sounds absent Cardio: Jugular venous distension: no JVD Rate: regular rate GI: Inspection: Yes normal to inspection Palpation (GI): Soft to palpation, not firm and nontender Percussion: Yes normal to percussion Skin: General skin exam: no rashes or lesions noted and elasticity normal Lesions: no lesions Rashes: no rashes Neuro: General: patient oriented x3 Extrem: General: Yes normal to inspection and Yes full ROM Right upper extremity: normal to inspection Course Reevaluation(s) Reevaluation #1: This is a patient with history of fever coronary artery disease presented to emergency room in respiratory distress, he is refusing an IV at this point he is refusing blood work, charge nurse aware ,at this point he is refusing care,I explain to the pt I can not take care of him w/o labs Time: 09:38 Reevaluation #2: Still refuse blood work,I spent another 20 minutes to jeffrey to talk to him Time: 10:07 Reevaluation #3: spoke with daughter Kamla she will come and try to convince father to get IV/labs Additional Reevaluation(s): 12:22 daughter is here will allow us now to place IV and do blood work Consultations Consultation #1: Re-examined at this time he is off BiPAP he is on oxygen 2 L, most likely diagnosis is COPD exacerbation no evidence of pneumonia. I spoke with the hospitalist will admit him for IV Solu-Medrol a nebs Time: 16:38 Medications Administered Discontinued Medications Generic Name Dose Route Start Last Admin Trade Name Freq PRN Reason Stop Dose Admin Albuterol Sulfate 2.5 mg/ 5 mg 10/09/22 13:35 10/09/22 13:40 Albuterol Sulfate 2.5 mg INHALE 10/09/22 13:36 5 mg ONCE ONE Administration Albuterol Sulfate 2.5 mg/ 0 mg 10/09/22 13:16 10/09/22 13:40 Ipratropium [place] 0.5 mg INHALE 10/09/22 13:17 Not Given ONCE ONE Lidocaine HCl 1 appl 10/09/22 12:29 10/09/22 12:42 Lidocaine 4 % Cream Kit TOPICAL 10/09/22 12:30 1 appl ONCE ONE Administration Protocol Methylprednisolone Sodium Succinate 125 mg 10/09/22 13:16 10/09/22 13:28 Methylprednisolone Sod Succ 125 Mg/2 Ml Vial IVPUSH 10/09/22 13:17 125 mg ONCE ONE Administration Medical Decision Making Medical Decision Making [facility] Narrative: Patient presented with shortness of breath differential diagnosis COPD exacerbation, CHF, pneumonia, COVID. At this point unfortunately is refusing labs does not want IV, he does have decision-making capacity, will get at least a chest x-ray and EKG Differential Diagnosis Differential Diagnoses: The differential diagnosis associated with the presentation includes CHF, pneumonia, COPD exacerbation Consult Healthcare Provider Management of the patient was discussed with: Hospitalist Lab Data [facility] Lab Attestation statement: I reviewed the patient's lab results. 10/09/22 13:13 10/09/22 13:13 Labs: Lab Results 10/09/22 10/09/22 10/09/22 Range/Units 09:34 09:42 13:13 WBC 7.5 (4.8-10.8) X10*3/uL RBC 4.42 L (4.60-5.80) X10*6/uL Hgb 14.6 (14.0-18.0) g/dl Hct 42.7 (42.0-52.0) % MCV 96.6 (80.0-98.0) fL MCH 33.0 (27.0-33.0) pg MCHC 34.2 (31.0-36.0) g/dl RDW 13.4 (11.0-16.0) % Plt Count 210 (160-400) X10*3/uL MPV 10.5 (9.4-12.4) fL Immature Gran % (Auto) 0.3 (0.0-0.4) % Neut % (Auto) 60.6 (45-73) % Lymph % (Auto) 24.4 (20-40) % Cameron % (Auto) 11.0 (2-11) % Eos % (Auto) 2.6 (0-4) % Baso % (Auto) 1.1 (0-2) % Lymph # (Auto) 1.8 (1.2-4.9) X10*3/uL Cameron # (Auto) 0.8 (0.1-1.2) X10*3/uL Eos # (Auto) 0.2 (0.0-0.4) X10*3/uL Baso # (Auto) 0.1 (0.0-0.2) X10*3/uL Abs Immat Gran (auto) 0.02 (0.00-0.03) X10*3/uL Absolute Neuts (auto) 4.5 (2.0-8.3) x10*3/uL Absolute Nucleated RBC 0.000 (0.0-0.012) X10*3/uL Nucleated RBC % (auto) 0.0 (0.0-0.2) /100WBC PT (10.0-13.1) SEC INR (0.9-1.1) VBG pH (7.32-7.43) VBG pCO2 mmHg VBG pO2 mmHg VBG HCO3 (22-26) mmol/L VBG O2 Saturation % VBG Base Excess mmol/L Sodium (135-145) mmol/L Potassium (3.3-5.1) mmol/L Chloride (96-108) mmol/L Carbon Dioxide (22-29) mmol/L Anion Gap (12-20) BUN (9-16) mg/dL Creatinine (0.5-1.4) mg/dL Estim Creat Clear Calc Estimated GFR Random Glucose (60-115) mg/dL Lactic Acid (0.5-2.0) mmol/L Calcium (8.4-10.2) mg/dL Total Bilirubin (0.0-1.0) mg/dL AST (5-37) U/L ALT (0-40) U/L Alkaline Phosphatase (39-117) U/L Troponin I High Sens (<3.5-35.0) ng/L B-Natriuretic Peptide (<100) pg/mL Total Protein (6.5-8.0) g/dL Albumin (3.5-5.0) g/dL Digoxin (0.8-2.0) ng/mL Ethyl Alcohol mg/dL COVID-19 (LYNDA) Cancelled COVID-19 Clin Com Cancelled Influenza Type A (PCR) NEGATIVE (Negative) Influenza Type B (PCR) NEGATIVE (Negative) RSV RNA Qual (PCR) NEGATIVE (Negative) SARS-CoV-2 RNA (RT-PCR) NEGATIVE (Negative) 10/09/22 10/09/22 10/09/22 Range/Units 13:13 13:13 13:13 WBC (4.8-10.8) X10*3/uL RBC (4.60-5.80) X10*6/uL Hgb (14.0-18.0) g/dl Hct (42.0-52.0) % MCV (80.0-98.0) fL MCH (27.0-33.0) pg MCHC (31.0-36.0) g/dl RDW (11.0-16.0) % Plt Count (160-400) X10*3/uL MPV (9.4-12.4) fL Immature Gran % (Auto) (0.0-0.4) % Neut % (Auto) (45-73) % Lymph % (Auto) (20-40) % Cameron % (Auto) (2-11) % Eos % (Auto) (0-4) % Baso % (Auto) (0-2) % Lymph # (Auto) (1.2-4.9) X10*3/uL Cameron # (Auto) (0.1-1.2) X10*3/uL Eos # (Auto) (0.0-0.4) X10*3/uL Baso # (Auto) (0.0-0.2) X10*3/uL Abs Immat Gran (auto) (0.00-0.03) X10*3/uL Absolute Neuts (auto) (2.0-8.3) x10*3/uL Absolute Nucleated RBC (0.0-0.012) X10*3/uL Nucleated RBC % (auto) (0.0-0.2) /100WBC PT (10.0-13.1) SEC INR (0.9-1.1) VBG pH (7.32-7.43) VBG pCO2 mmHg VBG pO2 mmHg VBG HCO3 (22-26) mmol/L VBG O2 Saturation % VBG Base Excess mmol/L Sodium 139 (135-145) mmol/L Potassium 3.7 (3.3-5.1) mmol/L Chloride 97 (96-108) mmol/L Carbon Dioxide 31 H (22-29) mmol/L Anion Gap 15 (12-20) BUN 13 (9-16) mg/dL Creatinine 0.87 (0.5-1.4) mg/dL Estim Creat Clear Calc 64.9 Estimated GFR > 60 Random Glucose 83 (60-115) mg/dL Lactic Acid (0.5-2.0) mmol/L Calcium 8.9 (8.4-10.2) mg/dL Total Bilirubin 1.2 H (0.0-1.0) mg/dL AST 17 (5-37) U/L ALT < 6 (0-40) U/L Alkaline Phosphatase 120 H (39-117) U/L Troponin I High Sens 9.2 (<3.5-35.0) ng/L B-Natriuretic Peptide 554 H (<100) pg/mL Total Protein 6.8 (6.5-8.0) g/dL Albumin 4.0 (3.5-5.0) g/dL Digoxin (0.8-2.0) ng/mL Ethyl Alcohol 58 mg/dL COVID-19 (LYNDA) COVID-19 Clin Com Influenza Type A (PCR) (Negative) Influenza Type B (PCR) (Negative) RSV RNA Qual (PCR) (Negative) SARS-CoV-2 RNA (RT-PCR) (Negative) 10/09/22 10/09/22 10/09/22 Range/Units 13:13 13:13 13:14 WBC (4.8-10.8) X10*3/uL RBC (4.60-5.80) X10*6/uL Hgb (14.0-18.0) g/dl Hct (42.0-52.0) % MCV (80.0-98.0) fL MCH (27.0-33.0) pg MCHC (31.0-36.0) g/dl RDW (11.0-16.0) % Plt Count (160-400) X10*3/uL MPV (9.4-12.4) fL Immature Gran % (Auto) (0.0-0.4) % Neut % (Auto) (45-73) % Lymph % (Auto) (20-40) % Cameron % (Auto) (2-11) % Eos % (Auto) (0-4) % Baso % (Auto) (0-2) % Lymph # (Auto) (1.2-4.9) X10*3/uL Cameron # (Auto) (0.1-1.2) X10*3/uL Eos # (Auto) (0.0-0.4) X10*3/uL Baso # (Auto) (0.0-0.2) X10*3/uL Abs Immat Gran (auto) (0.00-0.03) X10*3/uL Absolute Neuts (auto) (2.0-8.3) x10*3/uL Absolute Nucleated RBC (0.0-0.012) X10*3/uL Nucleated RBC % (auto) (0.0-0.2) /100WBC PT 13.4 H (10.0-13.1) SEC INR 1.2 H (0.9-1.1) VBG pH (7.32-7.43) VBG pCO2 mmHg VBG pO2 mmHg VBG HCO3 (22-26) mmol/L VBG O2 Saturation % VBG Base Excess mmol/L Sodium (135-145) mmol/L Potassium (3.3-5.1) mmol/L Chloride (96-108) mmol/L Carbon Dioxide (22-29) mmol/L Anion Gap (12-20) BUN (9-16) mg/dL Creatinine (0.5-1.4) mg/dL Estim Creat Clear Calc Estimated GFR Random Glucose (60-115) mg/dL Lactic Acid 1.7 (0.5-2.0) mmol/L Calcium (8.4-10.2) mg/dL Total Bilirubin (0.0-1.0) mg/dL AST (5-37) U/L ALT (0-40) U/L Alkaline Phosphatase (39-117) U/L Troponin I High Sens (<3.5-35.0) ng/L B-Natriuretic Peptide (<100) pg/mL Total Protein (6.5-8.0) g/dL Albumin (3.5-5.0) g/dL Digoxin 1.4 (0.8-2.0) ng/mL Ethyl Alcohol mg/dL COVID-19 (LYNDA) COVID-19 Clin Com Influenza Type A (PCR) (Negative) Influenza Type B (PCR) (Negative) RSV RNA Qual (PCR) (Negative) SARS-CoV-2 RNA (RT-PCR) (Negative) 10/09/22 Range/Units 13:24 WBC (4.8-10.8) X10*3/uL RBC (4.60-5.80) X10*6/uL Hgb (14.0-18.0) g/dl Hct (42.0-52.0) % MCV (80.0-98.0) fL MCH (27.0-33.0) pg MCHC (31.0-36.0) g/dl RDW (11.0-16.0) % Plt Count (160-400) X10*3/uL MPV (9.4-12.4) fL Immature Gran % (Auto) (0.0-0.4) % Neut % (Auto) (45-73) % Lymph % (Auto) (20-40) % Cameron % (Auto) (2-11) % Eos % (Auto) (0-4) % Baso % (Auto) (0-2) % Lymph # (Auto) (1.2-4.9) X10*3/uL Cameron # (Auto) (0.1-1.2) X10*3/uL Eos # (Auto) (0.0-0.4) X10*3/uL Baso # (Auto) (0.0-0.2) X10*3/uL Abs Immat Gran (auto) (0.00-0.03) X10*3/uL Absolute Neuts (auto) (2.0-8.3) x10*3/uL Absolute Nucleated RBC (0.0-0.012) X10*3/uL Nucleated RBC % (auto) (0.0-0.2) /100WBC PT (10.0-13.1) SEC INR (0.9-1.1) VBG pH 7.37 (7.32-7.43) VBG pCO2 63 mmHg VBG pO2 43 mmHg VBG HCO3 36 H (22-26) mmol/L VBG O2 Saturation 65.0 % VBG Base Excess 8.8 mmol/L Sodium (135-145) mmol/L Potassium (3.3-5.1) mmol/L Chloride (96-108) mmol/L Carbon Dioxide (22-29) mmol/L Anion Gap (12-20) BUN (9-16) mg/dL Creatinine (0.5-1.4) mg/dL Estim Creat Clear Calc Estimated GFR Random Glucose (60-115) mg/dL Lactic Acid (0.5-2.0) mmol/L Calcium (8.4-10.2) mg/dL Total Bilirubin (0.0-1.0) mg/dL AST (5-37) U/L ALT (0-40) U/L Alkaline Phosphatase (39-117) U/L Troponin I High Sens (<3.5-35.0) ng/L B-Natriuretic Peptide (<100) pg/mL Total Protein (6.5-8.0) g/dL Albumin (3.5-5.0) g/dL Digoxin (0.8-2.0) ng/mL Ethyl Alcohol mg/dL COVID-19 (LYNDA) COVID-19 Clin Com Influenza Type A (PCR) (Negative) Influenza Type B (PCR) (Negative) RSV RNA Qual (PCR) (Negative) SARS-CoV-2 RNA (RT-PCR) (Negative) Independent Interpretation I performed an independent interpretation of an: EKG (EKG my interpretation shows no ischemia) and Plain X-Ray Interpretation: A. Fib rate 52 no ischemic changes Radiology Impression Discussion of test interpretation with radiology: I have reviewed the radiologist's reading. Independent Historian Clinical information obtained from an independent historian. History obtained from or confirmed by: Other (spoke with the daughter at [facility]) External Record Review External record reviewed: Inpatient record Chronic Conditions Patient?s care impacted by: Other (COPD/CAD/A.Fib) Discharge Plan Discharge Clinical Impression: COPD exacerbation Patient Disposition: Admitted As Inpatient
--- NOTE | 2022-10-09 09:34 | PC.RT ---
pt refused abg. stated no needles dr muro
--- NOTE | 2022-10-09 09:57 | PC.NURSE ---
patient refused blood work, multiple times, Rn and MD aware
[2022-10-09 10:43] LABS: Influenza A PCR NEGATIVE (Negative); Influenza B PCR NEGATIVE (Negative); Resp Syncy Virus RNA Qual PCR NEGATIVE (Negative); SARS COV2 PCR INHOUSE NEGATIVE (Negative)
--- NOTE | 2022-10-09 11:08 | PHA.MEDREC ---
Pharmacy Consult ? Medication Reconciliation Pharmacy has completed the medication reconciliation. Patient knew few of their medications. Called patient's daughter Sharmin which confirmed all medications.
--- NOTE | 2022-10-09 11:40 | PC.NURSE ---
pt was removed from bipap (09/07, at 30%) placed on 4l/m via n/c to ct scan.
[2022-10-09] MEDS: Lidocaine 4 % Cream KIT 1 APPL TOPICAL (12:42)
[2022-10-09 13:21] LABS: MANUAL DIFF FLAG NO
--- NOTE | 2022-10-09 13:26 | PC.NURSE ---
bipap d/c'd, pt is now on 2l/m via n/c. heplock # 20 to r forearm, placed by nathalia duran.
[2022-10-09] MEDS: methylPREDNISolone Sod Succ 125 MG/2 ML VIAL IVPUSH (13:28)
[2022-10-09 13:29] LABS: Basophils Absolute Auto 0.1 X10*3/uL (0.0-0.2); Basophils Percent Auto 1.1 % (0-2); Eosinophils Absolute Auto 0.2 X10*3/uL (0.0-0.4); Eosinophils Percent Auto 2.6 % (0-4); Hematocrit 42.7 % (42.0-52.0); Hemoglobin 14.6 g/dl (14.0-18.0); Imm Gran Abs Auto 0.02 X10*3/uL (0.00-0.03); Imm Gran Pct Auto 0.3 % (0.0-0.4); Lymphocytes Absolute Auto 1.8 X10*3/uL (1.2-4.9); Lymphocytes Percent Auto 24.4 % (20-40); Mean Corpuscular HGB Conc 34.2 g/dl (31.0-36.0); Mean Corpuscular Volume 96.6 fL (80.0-98.0); Mean Platelet Volume 10.5 fL (9.4-12.4); Monocytes Absolute Auto 0.8 X10*3/uL (0.1-1.2); Neutrophils Absolute Auto 4.5 x10*3/uL (2.0-8.3); Neutrophils Percent Auto 60.6 % (45-73); Platelet Count 210 X10*3/uL (160-400); Red Blood Count 4.42 X10*6/uL (4.60-5.80); Red Cell Distribution Width 13.4 % (11.0-16.0); White Blood Count 7.5 X10*3/uL (4.8-10.8)
[2022-10-09 13:33] LABS: VBG Base Excess 8.8 mmol/L; VBG HCO3 36 mmol/L (22-26); VBG pCO2 63 mmHg; VBG pH 7.37 (7.32-7.43); VBG pO2 43 mmHg
[2022-10-09 13:39] LABS: Venous Blood Gas Refer to POC result
[2022-10-09 13:40] LABS: INTERNATIONAL NORM RATIO 1.2 (0.9-1.1); Prothrombin Time 13.4 SEC (10.0-13.1)
[2022-10-09] MEDS: Albuterol Sulfate 2.5 MG, Albuterol Sulfate (0.083%) 2.5 MG 5 MG INHALE (13:40)
[2022-10-09 13:45] LABS: Lactic Acid 1.7 mmol/L (0.5-2.0)
--- NOTE | 2022-10-09 13:50 | PC.NURSE ---
pt is a/o x 3 no sob/mini noted speaks in full sentences. lungs - diminished all lobes. pt appears thin and frail. abd soft, non-tender. bx + x 4 quads. no edema noted. pt is 02 at 2l/m via n/c
[2022-10-09 13:53] LABS: B Type Natriuretic Peptide 554 pg/mL (<100)
[2022-10-09 13:56] LABS: Anion Gap 15 (12-20)
[2022-10-09 13:57] LABS: Digoxin 1.4 ng/mL (0.8-2.0); Troponin-I High Sensitivity 9.2 ng/L (<3.5-35.0)
[2022-10-09 13:58] LABS: Alanine Aminotransferase < 6 U/L (0-40); Alkaline Phosphatase 120 U/L (39-117); Aspartate Amino Transferase 17 U/L (5-37); Bilirubin Total 1.2 mg/dL (0.0-1.0); Blood Urea Nitrogen 13 mg/dL (9-16); Calcium 8.9 mg/dL (8.4-10.2); Carbon Dioxide 31 mmol/L (22-29); Chloride 97 mmol/L (96-108); Creatinine Clr Calc Pharmacy 64.9; Estimated Glomerular Filt Rate > 60; Ethanol 58 mg/dL; Glucose Random 83 mg/dL (60-115); Potassium 3.7 mmol/L (3.3-5.1); Sodium 139 mmol/L (135-145); Total Protein 6.8 g/dL (6.5-8.0)
--- NOTE | 2022-10-09 17:26 | P.HPHOSP_ITS ---
History of Present Illness Date of Service: 10/09/22 Chief Complaint: Shortness of breath Chief Complaint: Shortness of breath This is a 67-year-old male with past medical history of COPD, CAD status post CABG, CHF, alcohol abuse, paroxysmal AFib on digoxin, initial presenting with shortness of breath and hypoxia. He states that he started having shortness of breath this morning and progressively got worst as the day went on. He got no relief with inhalers at home. He was put on BiPAP in the ED treated with IV steroid, Bronchodilators by Neb. He is not coughing and has no fever, RSV, Flu and covid are negative. CXR?show bronchial wall thickening. No PNA Review of Systems Review of Systems: Gen: no fever Resp: + sob, no cough CV: no chest, no GUERRA, no leg edema GI: No n/v, no abd pain Neuro: No confusion Yes all other systems are reviewed and are negative [facility] Medical History Alcohol abuse Atherosclerotic cardiovascular disease Atrial fibrillation CAD (coronary artery disease) CHF (congestive heart failure) Chronic respiratory failure COPD (chronic obstructive pulmonary disease) History of ischemic cardiomyopathy Hypercholesteremia Hypoxemia Myocardial infarction Paroxysmal atrial fibrillation Tobacco abuse Surgical History H/O heart bypass surgery History of surgery on lower extremity Status post aorto-coronary artery bypass graft Social History Household Members: Family Household Members Other:: CHILDREN,GRANDCHILDREN Housing: House Do you presently have visiting nurse or other home services: No Alcohol intake: never Patient Tobacco Use Status: Current everyday Tobacco user Tobacco use type: Cigarette Cigarette Packs Per Day: 1 Cigarettes Per Day: 20.0 Years Smoked: 40+ Smoked in Last 30 Days: Yes e-Cigarette/Vaping Use: Never Used Patient Interested in Nicotine Replacement: No Patient Given Instructions on How to Stop Smoking: Yes Date Education Initiated: 10/09/22 Second Hand Smoke Exposure: No Use of substances other than those prescribed or required for medical reasons: No Currently Displaying Signs/Symptoms of Drug Intoxication Withdrawal: No Any prior treatment program specific to substance use: Yes Have you been hit, kicked, punched, or otherwise hurt by someone within the past year? If so, by whom?: No Do you feel safe in your current relationship?: Yes Is there a partner from a previous relationship who is making you feel unsafe now?: No Are you made to feel afraid or neglected: No Advance Directives: No Advance Directives Information Provided: Yes Advance Directives on File: Yes Advance Directives Date on File: 11/08/20 Do you have thoughts of harming others: None Do you have a plan to hurt others: No Plan Recently lost weight without trying: No Eating poorly because of decreased appetite: No Nutrition Risks: No Nutritional Risk Poor oral hygiene: No service: No Current occupational status: retired [employer] Allergies Allergy/AdvReac Type Severity Reaction Status Date / Time No Known Allergies Allergy Verified 09/02/22 13:35 [No Known Allergies*] Active Medications: Current Medications Pharmacy Consult (Consult Rx Perform Med Rec) 1 each MISCELLANE ONCE PRN PRN Reason: Consult order Home Medications Medication Instructions Recorded Confirmed Last Taken Type albuterol sulfate 90 mcg/actuation 2 puff inhalation Q6H PRN Wheezing 08/12/20 10/09/22 10/08/22 History aerosol inhaler (ProAir HFA) aspirin 81 mg tablet,delayed 81 mg PO DAILY 08/12/20 10/09/22 10/08/22 History release thiamine HCl (vitamin B1) 100 mg 100 mg PO DAILY 11/05/20 10/09/22 10/08/22 H istory tablet (Vitamin B-1) cholecalciferol (vitamin D3) 25 25 mcg PO DAILY 11/07/20 10/09/22 10/08/22 History mcg (1,000 unit) capsule (Vitamin D3) folic acid 1 mg tablet 1 mg PO DAILY 11/07/20 10/09/22 10/08/22 History umeclidinium 62.5 mcg/actuation 1 inh inhalation BEDTIME 07/16/22 10/09/22 10/08/22 History blister powder for inhalation (Incruse Ellipta) atorvastatin 20 mg tablet 1 tab PO DAILY 10/09/22 10/09/22 10/08/22 History metoprolol tartrate 100 mg tablet 100 mg PO BID 10/09/22 10/09/22 10/08/22 History (Lopressor) metoprolol tartrate 50 mg tablet 50 mg PO DAILY 10/09/22 10/09/22 10/08/22 History Physical Exam Vital Signs and Narrative: Vital Signs: Last Vital Signs Temp 97.9 F 10/09/22 16:08 Pulse 85 10/09/22 16:08 Resp 14 10/09/22 16:08 BP 129/75 10/09/22 16:08 Pulse Ox 93 10/09/22 16:08 O2 Del Method 10/09/22 16:08 O2 Flow Rate 3 10/09/22 16:08 Oxygen Flow Rate 3 10/09/22 15:15 BMI result Body Mass Index 20.1 Const: Other: General: AO X 3, no acute distress Resp: CTA bilateral CVS: S1,S2,RRR GI: +BS, NT, no distention Skin: No rash Neuro: motor grossly intact Psych: appropriate affect Results Labs 10/09/22 13:13 10/09/22 13:13 Labs: Laboratory Results - last 24 hr 10/09/22 10/09/22 10/09/22 09:34 09:42 13:13 MCV 96.6 MCH 33.0 MCHC 34.2 RDW 13.4 Plt Count 210 MPV 10.5 Immature Gran % (Auto) 0.3 Neut % (Auto) 60.6 Lymph % (Auto) 24.4 [place] % (Auto) 11.0 Eos % (Auto) 2.6 Baso % (Auto) 1.1 Lymph # (Auto) 1.8 [place] # (Auto) 0.8 Eos # (Auto) 0.2 Baso # (Auto) 0.1 Abs Immat Gran (auto) 0.02 Absolute Neuts (auto) 4.5 Absolute Nucleated RBC 0.000 Nucleated RBC % (auto) 0.0 PT INR VBG pH VBG pCO2 VBG pO2 VBG HCO3 VBG O2 Saturation VBG Base Excess Anion Gap Estim Creat Clear Calc Estimated GFR Random Glucose Lactic Acid Calcium Total Bilirubin AST ALT Alkaline Phosphatase Troponin I High Sens B-Natriuretic Peptide Total Protein Albumin Digoxin Ethyl Alcohol COVID-19 (LYNDA) Cancelled COVID-19 Clin Com Cancelled Influenza Type A (PCR) NEGATIVE Influenza Type B (PCR) NEGATIVE RSV RNA Qual (PCR) NEGATIVE SARS-CoV-2 RNA (RT-PCR) NEGATIVE 10/09/22 10/09/22 10/09/22 13:13 13:13 13:13 MCV MCH MCHC RDW Plt Count MPV Immature Gran % (Auto) Neut % (Auto) Lymph % (Auto) [place] % (Auto) Eos % (Auto) Baso % (Auto) Lymph # (Auto) [place] # (Auto) Eos # (Auto) Baso # (Auto) Abs Immat Gran (auto) Absolute Neuts (auto) Absolute Nucleated RBC Nucleated RBC % (auto) PT INR VBG pH VBG pCO2 VBG pO2 VBG HCO3 VBG O2 Saturation VBG Base Excess Anion Gap 15 Estim Creat Clear Calc 64.9 Estimated GFR > 60 Random Glucose 83 Lactic Acid Calcium 8.9 Total Bilirubin 1.2 H AST 17 ALT < 6 Alkaline Phosphatase 120 H Troponin I High Sens 9.2 B-Natriuretic Peptide 554 H Total Protein 6.8 Albumin 4.0 Digoxin Ethyl Alcohol 58 COVID-19 (LYNDA) COVID-19 Clin Com Influenza Type A (PCR) Influenza Type B (PCR) RSV RNA Qual (PCR) SARS-CoV-2 RNA (RT-PCR) 10/09/22 10/09/22 10/09/22 13:13 13:13 13:14 MCV MCH MCHC RDW Plt Count MPV Immature Gran % (Auto) Neut % (Auto) Lymph % (Auto) [place] % (Auto) Eos % (Auto) Baso % (Auto) Lymph # (Auto) [place] # (Auto) Eos # (Auto) Baso # (Auto) Abs Immat Gran (auto) Absolute Neuts (auto) Absolute Nucleated RBC Nucleated RBC % (auto) PT 13.4 H INR 1.2 H VBG pH VBG pCO2 VBG pO2 VBG HCO3 VBG O2 Saturation VBG Base Excess Anion Gap Estim Creat Clear Calc Estimated GFR Random Glucose Lactic Acid 1.7 Calcium Total Bilirubin AST ALT Alkaline Phosphatase Troponin I High Sens B-Natriuretic Peptide Total Protein Albumin Digoxin 1.4 Ethyl Alcohol COVID-19 (LYNDA) COVID-19 Clin Com Influenza Type A (PCR) Influenza Type B (PCR) RSV RNA Qual (PCR) SARS-CoV-2 RNA (RT-PCR) 10/09/22 13:24 MCV MCH MCHC RDW Plt Count MPV Immature Gran % (Auto) Neut % (Auto) Lymph % (Auto) [place] % (Auto) Eos % (Auto) Baso % (Auto) Lymph # (Auto) [place] # (Auto) Eos # (Auto) Baso # (Auto) Abs Immat Gran (auto) Absolute Neuts (auto) Absolute Nucleated RBC Nucleated RBC % (auto) PT INR VBG pH 7.37 VBG pCO2 63 VBG pO2 43 VBG HCO3 36 H VBG O2 Saturation 65.0 VBG Base Excess 8.8 Anion Gap Estim Creat Clear Calc Estimated GFR Random Glucose Lactic Acid Calcium Total Bilirubin AST ALT Alkaline Phosphatase Troponin I High Sens B-Natriuretic Peptide Total Protein Albumin Digoxin Ethyl Alcohol COVID-19 (LYNDA) COVID-19 Clin Com Influenza Type A (PCR) Influenza Type B (PCR) RSV RNA Qual (PCR) SARS-CoV-2 RNA (RT-PCR) Imaging Radiologist's Impressions: Impressions Chest X-Ray 10/09/22 10:17 IMPRESSION: Hyperexpanded lungs. Hazy perihilar opacities are noted which could be associated with infectious or inflammatory process, though this could be secondary to overlying soft tissue. Dedicated PA radiograph could be useful if clinically indicated. Chest CT 10/09/22 12:05 IMPRESSION: Severe emphysema. Bronchial wall thickening with scattered bronchial filling defects could be associated with acute or chronic bronchitis. No dense consolidation. Fleischner guidelines were followed. Assessment and Plan (1) COPD exacerbation: Status: Acute (2) Hypoxia: Status: Acute (3) Atrial fibrillation with slow ventricular response: Status: Acute Plan 67-year-old male with COPD among others who presents to the hospital with complaints of worsening shortness of breath and hypoxia. # Dyspnea d/t acute COPD exacerbation needing BiPAP in ED briefly -IV steroid, Bronchodilators by Neb, Smoking cessation discussed # Chronic diastolic CHF--BNP is high but not above baseline, -continue home dose of Lasix # Permanent AFib - continue metoprolol, and digoxin, does not appear to be on anticoagulation( unclear why) # hyperlipidemia - continue Lipitor DVT prophylaxis:? Lovenox Admission to [facility] midnights for treatment of acute hypoxic respiratory failure due to copd exacerbation Time Spent With Patient Time: Total time managing care of this patient today ____ minutes. Quality Stroke Does the patient have a stroke diagnosis?: No VTE Prior VTE?: No VTE Risk Level:: Medical - moderate - high VTE Device Contraindication: Treatment Not Indicated VTE Drug Contraindication: N/A - Med Ordered
--- NOTE | 2022-10-09 17:50 | PC.NURSE ---
dr. case at bedside, pt aware of plan of care for admission to hosp.
--- NOTE | 2022-10-09 18:00 | PC.NURSE ---
pt's daughter shannan holland ([phone]) [place] [facility] [place] updated on [place] status.
[2022-10-09] MEDS: Albuterol Sulfate (0.083%) 2.5 MG/3 ML VIAL.NEB INHALE (19:15)
--- NOTE | 2022-10-09 20:47 | PC.NURSE ---
Floor called for report, report given. pt currently on 3L O2.
--- NOTE | 2022-10-09 20:49 | PC.NURSE ---
pt A&Ox4
[2022-10-09] MEDS: Enoxaparin Sodium 40 MG/0.4 ML SYRINGE SUBCUT (20:53)
[2022-10-09] MEDS: 0.9 % Sodium Chloride Flush 3 ML SYRINGE IVFLUSH (23:39)
[2022-10-10] VITALS (7 sets, daily range): BP systolic 100–127; BP diastolic 57–70; PULSE 52–86; RESP 16; TEMP 36.2–36.6; O2SAT 86–97
[2022-10-10] MEDS: 0.9 % Sodium Chloride Flush 3 ML SYRINGE IVFLUSH ×3 (07:12→20:55)
--- NOTE | 2022-10-10 08:11 | HO.PM.IMPN ---
Subjective Subjective Date of Service: 10/10/22 Interval History: f/u on copd exacerbation feels better, + blood culture 1/2 GPCCI he tells me he uses O2 at home when he wants for few minutes Physical Exam Vital Signs: Vital Signs: Last Vital Signs Temp 97.2 F 10/10/22 07:51 Pulse 67 10/10/22 07:51 Resp 16 10/10/22 07:51 BP 103/57 L 10/10/22 07:51 Pulse Ox 93 10/10/22 07:51 O2 Del Method 10/10/22 07:51 O2 Flow Rate 2.0 10/10/22 07:51 Oxygen Flow Rate 3 10/09/22 15:15 BMI result Body Mass Index 20.1 Const: Other: General: AO X 3, no acute distress Resp: CTA bilateral, no wheezes, normal breathing effort CVS: S1,S2,RRR GI: +BS, NT, no distention Skin: No rash Neuro: motor grossly intact Psych: appropriate affect Objective Data Active Medications Acetaminophen (Acetaminophen 325 Mg Tablet) 650 mg PO Q6H PRN PRN Reason: Pain, Mild (Pain Scale 1-3) Albuterol Sulfate (Albuterol Sulfate (0.083%) 2.5 Mg/3 Ml Vial.Neb) 2.5 mg INHALE RQ4H WHILE AWAKE [facility] Last Admin: 10/09/22 19:15 Dose: 2.5 mg Documented By: LORY Albuterol Sulfate (Albuterol Sulfate (0.083%) 2.5 Mg/3 Ml Vial.Neb) 2.5 mg INHALE Q2H PRN PRN Reason: Shortness of Breath/Wheezing Enoxaparin Sodium (Enoxaparin Sodium 40 Mg/0.4 Ml Syringe) 40 mg SUBCUT Q24H [facility] Last Admin: 10/09/22 20:53 Dose: 40 mg Documented By: FANNY Magnesium Hydroxide (Milk Of Magnesia 30 Ml Oral.Susp) 30 ml PO DAILY PRN PRN Reason: Constipation Melatonin (Melatonin 3 Mg Tablet) 6 mg PO BEDTIME PRN PRN Reason: Insomnia Methylprednisolone Sodium Succinate (Methylprednisolone Sod Succ 125 Mg/2 Ml Vial) 60 mg IVPUSH Q6H [facility] Nicotine (Nicotine 14 Mg Patch.Td24) 14 mg TRANSDERMA DAILY [facility] Last Admin: 10/10/22 07:13 Dose: Not Given Documented By: PRESLEY Non-Admin Reason: Patient Refused Ondansetron HCl (Ondansetron Hcl 4 Mg/2 Ml Vial) 4 mg IVPUSH Q8H PRN PRN Reason: Nausea and Vomiting Pharmacy Consult (Consult Rx Perform Med Rec) 1 each MISCELLANE ONCE PRN PRN Reason: Consult order Sodium Chloride (0.9 % Sodium Chloride Flush 3 Ml Syringe) [address] [facility] Last Admin: 10/10/22 07:12 Dose: 3 ml Documented By: PRESLEY Labs 10/09/22 13:13 10/09/22 13:13 Labs: Laboratory Results - last 24 hr 10/09/22 10/09/22 10/09/22 09:34 09:42 13:13 MCV 96.6 MCH 33.0 MCHC 34.2 RDW 13.4 Plt Count 210 MPV 10.5 Immature Gran % (Auto) 0.3 Neut % (Auto) 60.6 Lymph % (Auto) 24.4 [place] % (Auto) 11.0 Eos % (Auto) 2.6 Baso % (Auto) 1.1 Lymph # (Auto) 1.8 [place] # (Auto) 0.8 Eos # (Auto) 0.2 Baso # (Auto) 0.1 Abs Immat Gran (auto) 0.02 Absolute Neuts (auto) 4.5 Absolute Nucleated RBC 0.000 Nucleated RBC % (auto) 0.0 PT INR VBG pH VBG pCO2 VBG pO2 VBG HCO3 VBG O2 Saturation VBG Base Excess Anion Gap Estim Creat Clear Calc Estimated GFR Random Glucose Lactic Acid Calcium Total Bilirubin AST ALT Alkaline Phosphatase Troponin I High Sens B-Natriuretic Peptide Total Protein Albumin Digoxin Ethyl Alcohol COVID-19 (LYNDA) Cancelled COVID-19 Clin Com Cancelled Influenza Type A (PCR) NEGATIVE Influenza Type B (PCR) NEGATIVE RSV RNA Qual (PCR) NEGATIVE SARS-CoV-2 RNA (RT-PCR) NEGATIVE 10/09/22 10/09/22 10/09/22 13:13 13:13 13:13 MCV MCH MCHC RDW Plt Count MPV Immature Gran % (Auto) Neut % (Auto) Lymph % (Auto) [place] % (Auto) Eos % (Auto) Baso % (Auto) Lymph # (Auto) [place] # (Auto) Eos # (Auto) Baso # (Auto) Abs Immat Gran (auto) Absolute Neuts (auto) Absolute Nucleated RBC Nucleated RBC % (auto) PT INR VBG pH VBG pCO2 VBG pO2 VBG HCO3 VBG O2 Saturation VBG Base Excess Anion Gap 15 Estim Creat Clear Calc 64.9 Estimated GFR > 60 Random Glucose 83 Lactic Acid Calcium 8.9 Total Bilirubin 1.2 H AST 17 ALT < 6 Alkaline Phosphatase 120 H Troponin I High Sens 9.2 B-Natriuretic Peptide 554 H Total Protein 6.8 Albumin 4.0 Digoxin Ethyl Alcohol 58 COVID-19 (LYNDA) COVID-19 Clin Com Influenza Type A (PCR) Influenza Type B (PCR) RSV RNA Qual (PCR) SARS-CoV-2 RNA (RT-PCR) 10/09/22 10/09/22 10/09/22 13:13 13:13 13:14 MCV MCH MCHC RDW Plt Count MPV Immature Gran % (Auto) Neut % (Auto) Lymph % (Auto) [place] % (Auto) Eos % (Auto) Baso % (Auto) Lymph # (Auto) [place] # (Auto) Eos # (Auto) Baso # (Auto) Abs Immat Gran (auto) Absolute Neuts (auto) Absolute Nucleated RBC Nucleated RBC % (auto) PT 13.4 H INR 1.2 H VBG pH VBG pCO2 VBG pO2 VBG HCO3 VBG O2 Saturation VBG Base Excess Anion Gap Estim Creat Clear Calc Estimated GFR Random Glucose Lactic Acid 1.7 Calcium Total Bilirubin AST ALT Alkaline Phosphatase Troponin I High Sens B-Natriuretic Peptide Total Protein Albumin Digoxin 1.4 Ethyl Alcohol COVID-19 (LYNDA) COVID-19 Clin Com Influenza Type A (PCR) Influenza Type B (PCR) RSV RNA Qual (PCR) SARS-CoV-2 RNA (RT-PCR) 10/09/22 13:24 MCV MCH MCHC RDW Plt Count MPV Immature Gran % (Auto) Neut % (Auto) Lymph % (Auto) [place] % (Auto) Eos % (Auto) Baso % (Auto) Lymph # (Auto) [place] # (Auto) Eos # (Auto) Baso # (Auto) Abs Immat Gran (auto) Absolute Neuts (auto) Absolute Nucleated RBC Nucleated RBC % (auto) PT INR VBG pH 7.37 VBG pCO2 63 VBG pO2 43 VBG HCO3 36 H VBG O2 Saturation 65.0 VBG Base Excess 8.8 Anion Gap Estim Creat Clear Calc Estimated GFR Random Glucose Lactic Acid Calcium Total Bilirubin AST ALT Alkaline Phosphatase Troponin I High Sens B-Natriuretic Peptide Total Protein Albumin Digoxin Ethyl Alcohol COVID-19 (LYNDA) COVID-19 Clin Com Influenza Type A (PCR) Influenza Type B (PCR) RSV RNA Qual (PCR) SARS-CoV-2 RNA (RT-PCR) Microbiology Microbiology Results: Microbiology 10/09/22 13:13 Blood Culture - Preliminary Blood - Venous Prelim: GPC Gram Stain only Assessment and Plan (1) COPD exacerbation: Status: Acute (2) Hypoxia: Status: Acute (3) Atrial fibrillation with slow ventricular response: Status: Acute Plan 67-year-old male with COPD among others who presents to the hospital with complaints of worsening shortness of breath and hypoxia. # Dyspnea d/t acute COPD exacerbation with acute hypoxic respiratory failure on chronic respiraotory failure, needing BiPAP in ED briefly -IV steroid, Bronchodilators by Neb, Smoking cessation discussed, Oxygen and do not exceed O2 sat of 93% #+ Blood culture 1/2 gram positive cocci, likely contaminiation--a dose vanco and wait for sensitivity and final result # Chronic diastolic CHF--BNP is high but not above baseline, -continue home dose of Lasix # Permanent AFib - continue metoprolol, and digoxin, does not appear to be on anticoagulation( unclear why) # hyperlipidemia - continue Lipitor DVT prophylaxis:? Lovenox Need for inpatientof acute hypoxic respiratory failure due to copd exacerbation Time Spent With Patient Time: Total time managing care of this patient today ____ minutes. Quality Stroke Does the patient have a stroke diagnosis?: No VTE Prior VTE?: No VTE Risk Level:: Medical - moderate - high VTE Device Contraindication: Treatment Not Indicated VTE Drug Contraindication: N/A - Med Ordered
[2022-10-10] MEDS: Albuterol Sulfate (0.083%) 2.5 MG/3 ML VIAL.NEB INHALE ×3 (08:44→18:51)
[2022-10-10 08:54] LABS: Creatinine Clr Calc Pharmacy 50.9; Estimated Glomerular Filt Rate > 60
[2022-10-10] MEDS: Digoxin 0.125 MG TABLET PO (08:58)
[2022-10-10] MEDS: Aspirin Enteric Coated 81 MG TABLET.DR PO (08:58)
[2022-10-10] MEDS: Atorvastatin Calcium 20 MG TABLET PO (08:58)
[2022-10-10] MEDS: Cholecalciferol (Vitamin D3) 25 MCG TABLET PO (08:58)
[2022-10-10] MEDS: Thiamine HCL 100 MG TABLET PO (08:58)
[2022-10-10] MEDS: Folic Acid 1 MG TABLET PO (08:59)
[2022-10-10] MEDS: Metoprolol Tartrate 100 MG TABLET PO ×2 (08:59→20:54)
[2022-10-10] MEDS: Metoprolol Tartrate 50 MG TABLET PO (08:59)
[2022-10-10] MEDS: methylPREDNISolone Sod Succ 125 MG/2 ML VIAL 60 MG IVPUSH ×3 (08:59→20:54)
[2022-10-10] MEDS: vancomycin HCL 1,500 MG in 0.9 % Sodium Chloride 500 ML 333.33 MG IV (09:00)
--- NOTE | 2022-10-10 09:17 | PHA.PROG ---
Admission Date/Time: October 09, 2022 18:35 Indication: Bactermia Weight in k kg Adjusted body weight in K.9 kg [place] body weight in K.5 kg Obesity Dosing Indication % IBW: N/A Serum Creatinine - Last 168 Hours 10/09/22 10/10/22 13:13 08:35 Creatinine 0.87 1.11 Estimated CrCl and GFR - Last 168 Hours 10/09/22 10/10/22 13:13 08:35 Estim Creat Clear Calc 64.9 50.9 Estimated GFR > 60 > 60 Vancomycin Loading Dose: 1500 mg (27 mg/kg) Current Vancomycin Dosing Regimen: 1250 mg Q24H Date and Time for next Vancomycin Level to be drawn: 10/12 @ 0700 Pharmacist Comments on Vancomycin Plan: Patient receiving loading dose vancomycin 1500 mg 10/10 @ 0900. Maintenance dose scheduled to start 10/11 @ 0900. Expected AUC 540 with a trough of 15.4. Patient renal function is worsening with increase in SCr from 0.87 to 1.11. Pharamcy will continue to monitor and adjust if necessary Level to be drawn prior to 3rd dose to examine for toxicity early due to renal function potentially worsening Dunia Palumbo PharmD Vancomycin dosing will take advantage of emere as a clinical decision support tool that uses Bayesian modeling to calculate individual patient's pharmacokinetic parameters and forecast the patient's drug concentration time course with the target goal AUC 24 range of 400 - 600 mg/L/hr.
--- NOTE | 2022-10-10 15:52 | MHC.CM.PN ---
PT REPORTS HE LIVES WITH HIS DAUGHTER AND HIS DAUGHTERS FAMILY HE REPORTS HE IS INDEPENDENT WITH HIS CARE AND USES A CANE TO AMBULATE PT HAS NO HOME SERVICES HCP ON FILE + [facility] PCP: RANDAL WALKER IMM DELIVERED CURRENT DC PLAN IS HOME VIA FAMILY TRANSPORT
--- NOTE | 2022-10-10 22:22 | PC.RT ---
Pt refusing CPAP at this time; I dont have a machine at home i wear oxygen
--- NOTE | 2022-10-10 23:55 | PC.NURSE ---
Pt reported SOB at rest, pt stat is 89 % on 1 L O2 via NC, respiration is non labored, no use of accessory muscles .HOD elevated, oxygen increased to 2 L and pt encourage to take deep breaths, stat is 92 % at this time. Pt verbalized improved breathing, denies SOB. Pt to call this RN for recurrent SOB, or any resp distress. Will reassess in 10 minutes. Pt is resting and aware of plan of care.
[2022-10-11] VITALS (9 sets, daily range): BP systolic 104–142; BP diastolic 58–74; PULSE 54–80; RESP 17–20; TEMP 36.3–37; O2SAT 92–95
[2022-10-11] MEDS: methylPREDNISolone Sod Succ 125 MG/2 ML VIAL 60 MG IVPUSH ×4 (02:11→20:04)
[2022-10-11 05:52] LABS: Creatinine Clr Calc Pharmacy 62.1; Estimated Glomerular Filt Rate > 60
--- NOTE | 2022-10-11 07:53 | HE.PHANOTE ---
Vancomycin Dosing Renal function is unstable. Continue current regimen vanco 1250 mg Q24H. Expected AUC 463 with a trough of 12.4. Level to be drawn 10/12 @ 0700 to assess for safety due to changes in SCr. Dunia Palumbo, GiD
[2022-10-11] MEDS: vancomycin HCL 1,250 MG in 0.9 % Sodium Chloride 250 ML 166.67 MG IV (08:24)
[2022-10-11] MEDS: Folic Acid 1 MG TABLET PO (08:24)
[2022-10-11] MEDS: Metoprolol Tartrate 50 MG TABLET PO (08:24)
[2022-10-11] MEDS: Metoprolol Tartrate 100 MG TABLET PO ×2 (08:25→20:05)
[2022-10-11] MEDS: Cholecalciferol (Vitamin D3) 25 MCG TABLET PO (08:25)
[2022-10-11] MEDS: Aspirin Enteric Coated 81 MG TABLET.DR PO (08:25)
[2022-10-11] MEDS: Digoxin 0.125 MG TABLET PO (08:25)
[2022-10-11] MEDS: Thiamine HCL 100 MG TABLET PO (08:25)
[2022-10-11] MEDS: Atorvastatin Calcium 20 MG TABLET PO (08:25)
[2022-10-11] MEDS: 0.9 % Sodium Chloride Flush 3 ML SYRINGE IVFLUSH ×3 (08:26→20:05)
--- NOTE | 2022-10-11 08:57 | P.PNIM_ITS ---
Subjective Subjective Date of Service: 10/11/22 Interval History: f/u on copd exacerbation feels better, + blood culture 2/2 GPCCI No sob Review of Systems Gen: no fever Resp: + sob, no cough CV: no chest, no GUERRA, no leg edema GI: No n/v, no abd pain Neuro: No confusion Physical Exam Vital Signs: Vital Signs: Last Vital Signs Temp 98.6 F 10/11/22 08:00 Pulse 72 10/11/22 08:00 Resp 18 10/11/22 08:00 BP 125/72 10/11/22 08:00 Pulse Ox 95 10/11/22 04:00 O2 Del Method 10/11/22 08:00 O2 Flow Rate 3 10/11/22 08:00 FiO2 91 10/11/22 08:00 Oxygen Flow Rate 3 10/09/22 15:15 BMI result Body Mass Index 20.1 Const: Other: General: AO X 3, no acute distress Resp: CTA bilateral, no wheezes, normal breathing effort CVS: S1,S2,RRR GI: +BS, NT, no distention Skin: No rash Neuro: motor grossly intact Psych: appropriate affect Objective Data Active Medications Acetaminophen (Acetaminophen 325 Mg Tablet) 650 mg PO Q6H PRN PRN Reason: Pain, Mild (Pain Scale 1-3) Albuterol Sulfate (Albuterol Sulfate (0.083%) 2.5 Mg/3 Ml Vial.Neb) 2.5 mg INHALE RQ4H WHILE AWAKE [facility] Last Admin: 10/10/22 18:51 Dose: 2.5 mg Documented By: KENNY Albuterol Sulfate (Albuterol Sulfate (0.083%) 2.5 Mg/3 Ml Vial.Neb) 2.5 mg INHALE Q2H PRN PRN Reason: Shortness of Breath/Wheezing Aspirin (Aspirin Enteric Coated 81 Mg Tablet.Dr) 81 mg PO DAILY [facility] Last Admin: 10/11/22 08:25 Dose: 81 mg Documented By: YOHAN Atorvastatin Calcium (Atorvastatin Calcium 20 Mg Tablet) 20 mg PO DAILY [facility] Last Admin: 10/11/22 08:25 Dose: 20 mg Documented By: YOHAN Digoxin (Digoxin 0.125 Mg Tablet) 0.125 mg PO DAILY [facility] Last Admin: 10/11/22 08:25 Dose: 0.125 mg Documented By: YOHAN Enoxaparin Sodium (Enoxaparin Sodium 40 Mg/0.4 Ml Syringe) 40 mg SUBCUT Q24H [facility] Last Admin: 10/10/22 20:53 Dose: Not Given Documented By: LILIANA Non-Admin Reason: Patient Refused Fluticasone/Vilanterol (Fluticasone/Vilanterol 100/25 Blst.W.Dev) 1 puff INHALE RDAILY [facility] Folic Acid (Folic Acid 1 Mg Tablet) 1 mg PO DAILY [facility] Last Admin: 10/11/22 08:24 Dose: 1 mg Documented By: YOHAN Furosemide (Furosemide 20 Mg Tablet) 20 mg PO DAILY PRN; Protocol PRN Reason: edema Vancomycin HCl 1,250 mg/ (Sodium Chloride) 250 mls @ 166.667 mls/hr IV Q24H [facility] Last Admin: 10/11/22 08:24 Dose: 166.67 mls/hr Documented By: YOHAN Magnesium Hydroxide (Milk Of Magnesia 30 Ml Oral.Susp) 30 ml PO DAILY PRN PRN Reason: Constipation Melatonin (Melatonin 3 Mg Tablet) 6 mg PO BEDTIME PRN PRN Reason: Insomnia Methylprednisolone Sodium Succinate (Methylprednisolone Sod Succ 125 Mg/2 Ml Via l) 60 mg IVPUSH Q6H [facility] Last Admin: 10/11/22 08:25 Dose: 60 mg Documented By: YOHAN Metoprolol Tartrate (Metoprolol Tartrate 100 Mg Tablet) 100 mg PO BID [facility]; Protocol Last Admin: 10/11/22 08:25 Dose: 100 mg Documented By: YOHAN Metoprolol Tartrate (Metoprolol Tartrate 50 Mg Tablet) 50 mg PO DAILY [facility]; Protocol Last Admin: 10/11/22 08:24 Dose: 50 mg Documented By: YOHAN Nicotine (Nicotine 14 Mg Patch.Td24) 14 mg TRANSDERMA DAILY [facility] Last Admin: 10/11/22 08:26 Dose: Not Given Documented By: YOHAN Non-Admin Reason: Patient Refused Ondansetron HCl (Ondansetron Hcl 4 Mg/2 Ml Vial) 4 mg IVPUSH Q8H PRN PRN Reason: Nausea and Vomiting Pharmacy Consult (Consult Rx Perform Med Rec) 1 each MISCELLANE ONCE PRN PRN Reason: Consult order Pharmacy Consult (Consult Rx Vancomycin Dosing) 1 each MISCELLANE DAILY PRN PRN Reason: Consult order Sodium Chloride (0.9 % Sodium Chloride Flush 3 Ml Syringe) 3 ml IVFLUSH QSHIFT [facility] Last Admin: 10/11/22 08:26 Dose: 3 ml Documented By: YOHAN Thiamine HCl (Thiamine Hcl 100 Mg Tablet) 100 mg PO DAILY [facility] Last Admin: 10/11/22 08:25 Dose: 100 mg Documented By: YOHAN Tiotropium [place] (Tiotropium [place] 18 Mcg Cap.W.Dev) 1 puff INHALE RDAILY [facility] Last Admin: 10/10/22 13:55 Dose: Not Given Documented By: FALGUNI Non-Admin Reason: Med Not Available Vitamin D (Cholecalciferol (Vitamin D3) 25 Mcg Tablet) 25 mcg PO DAILY [facility] Last Admin: 10/11/22 08:25 Dose: 25 mcg Documented By: YOHAN Labs 10/09/22 13:13 10/11/22 05:20 Labs: Laboratory Results - last 24 hr 10/11/22 05:20 Estim Creat Clear Calc 62.1 Estimated GFR > 60 Microbiology Microbiology Results: Microbiology 10/09/22 13:13 Blood Culture - Preliminary Blood - Venous Prelim: GPC Gram Stain only 10/09/22 13:14 Blood Culture - Preliminary Blood - Venous Prelim: GPC Gram Stain only Assessment and Plan (1) COPD exacerbation: Status: Acute (2) Hypoxia: Status: Acute (3) Atrial fibrillation with slow ventricular response: Status: Acute Plan 67-year-old male with COPD among others who presents to the hospital with complaints of worsening shortness of breath and hypoxia. # Dyspnea d/t acute COPD exacerbation with acute hypoxic respiratory failure on chronic respiraotory failure, needing BiPAP in ED briefly -IV steroid, Bronchodilators by Neb, Smoking cessation discussed, Oxygen and do not exceed O2 sat of 93% # Gram-positive cocci in clusters 2 sets positive/2 sets drawn sensitivity pending, continue IV Vanco, will need echo tomorrow to r/o IE, ID consult if turns out to be real # Chronic diastolic CHF--BNP is high but not above baseline, -continue home dose of Lasix # Permanent AFib - continue metoprolol, and digoxin, does not appear to be on anticoagulation( unclear why) # hyperlipidemia - continue Lipitor DVT prophylaxis:? Lovenox Need for inpatientof acute hypoxic respiratory failure due to copd exacerbation and bacteremia, no sensitivity yet Time Spent With Patient Time: Total time managing care of this patient today ____ minutes. Quality Stroke Does the patient have a stroke diagnosis?: No VTE Prior VTE?: No VTE Risk Level:: Medical - moderate - high VTE Device Contraindication: Treatment Not Indicated VTE Drug Contraindication: N/A - Med Ordered
[2022-10-11] MEDS: Albuterol Sulfate (0.083%) 2.5 MG/3 ML VIAL.NEB INHALE ×4 (09:22→21:03)
[2022-10-11] MEDS: Fluticasone/Vilanterol 100/25 BLST.W.DEV 1 PUFF INHALE (09:22)
--- NOTE | 2022-10-11 14:20 | PC.NURSE ---
patient assisted with personal care, did private parts by self but is refusing to take off his jeans and change to hospital pants.
--- NOTE | 2022-10-11 20:10 | PC.NURSE ---
Pt refused Lovenox, on 3rd attempt, he was educated on the purpose and risk of blood clot. Pt verbalized understanding and refused.
[2022-10-12] VITALS (8 sets, daily range): BP systolic 120–152; BP diastolic 62–68; PULSE 62–81; RESP 15–18; TEMP 36.1–36.6; O2SAT 91–95
[2022-10-12] MEDS: methylPREDNISolone Sod Succ 125 MG/2 ML VIAL 60 MG IVPUSH ×4 (02:20→20:21)
[2022-10-12 07:29] LABS: Creatinine Clr Calc Pharmacy 65.7; Estimated Glomerular Filt Rate > 60
[2022-10-12 07:31] LABS: Vancomycin Random 11.3 mcg/mL (15-20)
--- NOTE | 2022-10-12 07:47 | HE.PHANOTE ---
ALEXANDRA LYN CHANGED DOSE TO 750MG Q12 WITH A RANDOM AFTER TWO DOSES. NEW AUC 524, TROUGH 16.7 MELANIE
[2022-10-12] MEDS: Albuterol Sulfate (0.083%) 2.5 MG/3 ML VIAL.NEB INHALE ×4 (08:42→19:47)
[2022-10-12] MEDS: Fluticasone/Vilanterol 100/25 BLST.W.DEV 1 PUFF INHALE (08:43)
[2022-10-12] MEDS: vancomycin HCL 750 MG in 0.9 % Sodium Chloride 250 ML 265 MG IV (08:54)
[2022-10-12] MEDS: Atorvastatin Calcium 20 MG TABLET PO (08:56)
[2022-10-12] MEDS: Thiamine HCL 100 MG TABLET PO (08:56)
[2022-10-12] MEDS: Metoprolol Tartrate 50 MG TABLET PO (08:56)
[2022-10-12] MEDS: Folic Acid 1 MG TABLET PO (08:56)
[2022-10-12] MEDS: Digoxin 0.125 MG TABLET PO (08:56)
[2022-10-12] MEDS: Metoprolol Tartrate 100 MG TABLET PO ×2 (08:56→20:20)
[2022-10-12] MEDS: Aspirin Enteric Coated 81 MG TABLET.DR PO (08:56)
[2022-10-12] MEDS: Cholecalciferol (Vitamin D3) 25 MCG TABLET PO (08:56)
[2022-10-12] MEDS: 0.9 % Sodium Chloride Flush 3 ML SYRINGE IVFLUSH ×3 (08:57→20:21)
--- NOTE | 2022-10-12 09:44 | MHC.CLN ---
NUTRITION CHANGED DIET TO CARDIAC DUE CARDIAC HX.
--- NOTE | 2022-10-12 12:03 | P.PNIM_ITS ---
Subjective Subjective Date of Service: 10/12/22 Interval History: f/u on copd exacerbation feels better, + blood culture 2/2 GPCCI (strep viridan and coag negative staph) No sob, no fever Review of Systems Gen: no fever Resp: + sob, no cough CV: no chest, no GUERRA, no leg edema GI: No n/v, no abd pain Neuro: No confusion Physical Exam Vital Signs: Vital Signs: Last Vital Signs Temp 96.9 F 10/12/22 08:00 Pulse 81 10/12/22 11:35 Resp 18 10/12/22 11:35 BP 120/66 10/12/22 08:00 Pulse Ox 91 L 10/12/22 08:00 O2 Del Method 10/12/22 08:00 O2 Flow Rate 3 10/12/22 08:00 FiO2 91 10/11/22 08:00 Oxygen Flow Rate 3 10/09/22 15:15 BMI result Body Mass Index 20.1 Const: Other: General: AO X 3, no acute distress Resp: CTA bilateral, no wheezes, normal breathing effort CVS: S1,S2,RRR GI: +BS, NT, no distention Skin: No rash Neuro: motor grossly intact Psych: appropriate affect Objective Data Active Medications Acetaminophen (Acetaminophen 325 Mg Tablet) 650 mg PO Q6H PRN PRN Reason: Pain, Mild (Pain Scale 1-3) Albuterol Sulfate (Albuterol Sulfate (0.083%) 2.5 Mg/3 Ml Vial.Neb) 2.5 mg INHALE RQ4H WHILE AWAKE [facility] Last Admin: 10/12/22 11:34 Dose: 2.5 mg Documented By: VAIBHAV Albuterol Sulfate (Albuterol Sulfate (0.083%) 2.5 Mg/3 Ml Vial.Neb) 2.5 mg INHALE Q2H PRN PRN Reason: Shortness of Breath/Wheezing Aspirin (Aspirin Enteric Coated 81 Mg Tablet.) 81 mg PO DAILY [facility] Last Admin: 10/12/22 08:56 Dose: 81 mg Documented By: YOHAN Atorvastatin Calcium (Atorvastatin Calcium 20 Mg Tablet) 20 mg PO DAILY [facility] Last Admin: 10/12/22 08:56 Dose: 20 mg Documented By: YOHAN Digoxin (Digoxin 0.125 Mg Tablet) 0.125 mg PO DAILY [facility] Last Admin: 10/12/22 08:56 Dose: 0.125 mg Documented By: YOHAN Enoxaparin Sodium (Enoxaparin Sodium 40 Mg/0.4 Ml Syringe) 40 mg SUBCUT Q24H [facility] Last Admin: 10/11/22 20:05 Dose: Not Given Documented By: KRISHNAB Non-Admin Reason: Patient Refused Fluticasone/Vilanterol (Fluticasone/Vilanterol 100/25 Blst.W.Dev) 1 puff INHALE RDAILY [facility] Last Admin: 10/12/22 08:43 Dose: 1 puff Documented By: VAIBHAV Folic Acid (Folic Acid 1 Mg Tablet) 1 mg PO DAILY [facility] Last Admin: 10/12/22 08:56 Dose: 1 mg Documented By: YOHAN Furosemide (Furosemide 20 Mg Tablet) 20 mg PO DAILY PRN; Protocol PRN Reason: edema Vancomycin HCl 750 mg/ Sodium (Chloride) 265 mls @ 265 mls/hr IV Q12H [facility] Last Infusion: 10/12/22 10:00 Dose: 0 mls/hr Documented By: YOHAN Magnesium Hydroxide (Milk Of Magnesia 30 Ml Oral.Susp) 30 ml PO DAILY PRN PRN Reason: Constipation Melatonin (Melatonin 3 Mg Tablet) 6 mg PO BEDTIME PRN PRN Reason: Insomnia Methylprednisolone Sodium Succinate (Methylprednisolone Sod Succ 125 Mg/2 Ml Vial) 60 mg IVPUSH Q6H [facility] Last Admin: 10/12/22 08:56 Dose: 60 mg Documented By: YOHAN Metoprolol Tartrate (Metoprolol Tartrate 100 Mg Tablet) 100 mg PO BID [facility]; Protocol Last Admin: 10/12/22 08:56 Dose: 100 mg Documented By: YOHAN Metoprolol Tartrate (Metoprolol Tartrate 50 Mg Tablet) 50 mg PO DAILY [facility]; Protocol Last Admin: 10/12/22 08:56 Dose: 50 mg Documented By: YOHAN Nicotine (Nicotine 14 Mg Patch.Td24) 14 mg TRANSDERMA DAILY [facility] Last Admin: 10/12/22 08:57 Dose: Not Given Documented By: YOHAN Non-Admin Reason: Patient Refused Ondansetron HCl (Ondansetron Hcl 4 Mg/2 Ml Vial) 4 mg IVPUSH Q8H PRN PRN Reason: Nausea and Vomiting Pharmacy Consult (Consult Rx Perform Med Rec) 1 each MISCELLANE ONCE PRN PRN Reason: Consult order Pharmacy Consult (Consult Rx Vancomycin Dosing) 1 each MISCELLANE DAILY PRN PRN Reason: Consult order Sodium Chloride (0.9 % Sodium Chloride Flush 3 Ml Syringe) 3 ml IVFLUSH QSHIFT [facility] Last Admin: 10/12/22 08:57 Dose: 3 ml Documented By: YOHAN Thiamine HCl (Thiamine Hcl 100 Mg Tablet) 100 mg PO DAILY [facility] Last Admin: 10/12/22 08:56 Dose: 100 mg Documented By: YOHAN Tiotropium [place] (Tiotropium [place] 18 Mcg Cap.W.Dev) 1 puff INHALE RDAILY [facility] Last Admin: 10/12/22 08:43 Dose: 1 puff Documented By: VAIBHAV Vitamin D (Cholecalciferol (Vitamin D3) 25 Mcg Tablet) 25 mcg PO DAILY [facility] Last Admin: 10/12/22 08:56 Dose: 25 mcg Documented By: YOHAN Labs 10/09/22 13:13 10/12/22 06:46 Labs: Laboratory Results - last 24 hr 10/12/22 10/12/22 06:46 06:46 Estim Creat Clear Calc 65.7 Estimated GFR > 60 Random Vancomycin 11.3 L Microbiology Microbiology Results: Microbiology 10/09/22 13:14 Blood Culture - Final Blood - Venous Coag negative Staphylococcus 10/09/22 13:13 Blood Culture - Final Blood - Venous Viridans streptococcus group Assessment and Plan (1) COPD exacerbation: Status: Acute (2) Hypoxia: Status: Acute (3) Atrial fibrillation with slow ventricular response: Status: Acute Plan 67-year-old male with COPD among others who presents to the hospital with complaints of worsening shortness of breath and hypoxia. # Dyspnea d/t acute COPD exacerbation with acute hypoxic respiratory failure on chronic respiraotory failure, needing BiPAP in ED briefly -IV steroid, Bronchodilators by Neb, Smoking cessation discussed, Oxygen and do not exceed O2 sat of 93% # Gram-positive cocci in clusters 2 sets positive/2 sets drawn--growing 1 set strep viridan and 1 set coag negative stff and likely contamination continue IV Vanco, ID to makd further recommendation.l # Chronic diastolic CHF--BNP is high but not above baseline, -continue home dose of Lasix # Permanent AFib - continue metoprolol, and digoxin, does not appear to be on anticoagulation( unclear why) # hyperlipidemia - continue Lipitor DVT prophylaxis:? Lovenox Need for inpatientof acute hypoxic respiratory failure due to copd exacerbation and bacteremia, no sensitivity yet Time Spent With Patient Time: Total time managing care of this patient today ____ minutes. Quality Stroke Does the patient have a stroke diagnosis?: No VTE Prior VTE?: No VTE Risk Level:: Medical - moderate - high VTE Device Contraindication: Treatment Not Indicated VTE Drug Contraindication: N/A - Med Ordered
--- NOTE | 2022-10-12 15:26 | W.PM.IDCN ---
History of Present Illness Data of Consult Service Date: 10/12/22 Requesting physician: Jose Chanel Primary Care Provider: MD MARRY Nugent Reason for consult: shortness of breath He presents with shortness of breath for about six hours. He has some purulent sputum. CXR some atelectasis and patchy infiltrates. Review of Systems Review of Systems: Yes all other systems are reviewed and are negative [facility] Past Medical History Medical History (Updated 10/12/22 @ 15:31 by Ene Castaneda MD) Alcohol abuse Atherosclerotic cardiovascular disease Atrial fibrillation Bacteremia CAD (coronary artery disease) CHF (congestive heart failure) Chronic respiratory failure COPD (chronic obstructive pulmonary disease) History of ischemic cardiomyopathy Hypercholesteremia Hypoxemia Myocardial infarction Paroxysmal atrial fibrillation Tobacco abuse Family History Family history: reviewed and not pertinent Surgical History Surgical History H/O heart bypass surgery History of surgery on lower extremity Status post aorto-coronary artery bypass graft Social History Social History Household Members: Family Household Members Other:: CHILDREN,GRANDCHILDREN Housing: House Do you presently have visiting nurse or other home services: No Alcohol intake: never Patient Tobacco Use Status: Current everyday Tobacco user Tobacco use type: Cigarette Cigarette Packs Per Day: 1 Cigarettes Per Day: 20.0 Years Smoked: 40+ Smoked in Last 30 Days: Yes e-Cigarette/Vaping Use: Never Used Patient Interested in Nicotine Replacement: No Patient Given Instructions on How to Stop Smoking: Yes Date Education Initiated: 10/09/22 Second Hand Smoke Exposure: No Use of substances other than those prescribed or required for medical reasons: No Currently Displaying Signs/Symptoms of Drug Intoxication Withdrawal: No Any prior treatment program specific to substance use: Yes Have you been hit, kicked, punched, or otherwise hurt by someone within the past year? If so, by whom?: No Do you feel safe in your current relationship?: Yes Is there a partner from a previous relationship who is making you feel unsafe now?: No Are you made to feel afraid or neglected: No Advance Directives: No Advance Directives Information Provided: Yes Advance Directives on File: Yes Advance Directives Date on File: 11/08/20 Do you have thoughts of harming others: None Do you have a plan to hurt others: No Plan Recently lost weight without trying: No Eating poorly because of decreased appetite: No Nutrition Risks: No Nutritional Risk Poor oral hygiene: No service: No Current occupational status: retired [employer] Allergies Allergy/AdvReac Type Severity Reaction Status Date / Time No Known Allergies Allergy Verified 09/02/22 13:35 [No Known Allergies*] Active Medications: Current Medications Acetaminophen (Acetaminophen 325 Mg Tablet) 650 mg PO Q6H PRN PRN Reason: Pain, Mild (Pain Scale 1-3) Albuterol Sulfate (Albuterol Sulfate (0.083%) 2.5 Mg/3 Ml Vial.Neb) 2.5 mg INHALE RQ4H WHILE AWAKE [facility] Last Admin: 10/12/22 14:56 Dose: 2.5 mg Albuterol Sulfate (Albuterol Sulfate (0.083%) 2.5 Mg/3 Ml Vial.Neb) 2.5 mg INHALE Q2H PRN PRN Reason: Shortness of Breath/Wheezing Aspirin (Aspirin Enteric Coated 81 Mg Tablet.Dr) 81 mg PO DAILY [facility] Last Admin: 10/12/22 08:56 Dose: 81 mg Atorvastatin Calcium (Atorvastatin Calcium 20 Mg Tablet) 20 mg PO DAILY [facility] Last Admin: 10/12/22 08:56 Dose: 20 mg Digoxin (Digoxin 0.125 Mg Tablet) 0.125 mg PO DAILY [facility] Last Admin: 10/12/22 08:56 Dose: 0.125 mg Enoxaparin Sodium (Enoxaparin Sodium 40 Mg/0.4 Ml Syringe) 40 mg SUBCUT Q24H [facility] Last Admin: 10/11/22 20:05 Dose: Not Given Fluticasone/Vilanterol (Fluticasone/Vilanterol 100/25 Blst.W.Dev) 1 puff INHALE RDAILY [facility] Last Admin: 10/12/22 08:43 Dose: 1 puff Folic Acid (Folic Acid 1 Mg Tablet) 1 mg PO DAILY [facility] Last Admin: 10/12/22 08:56 Dose: 1 mg Furosemide (Furosemide 20 Mg Tablet) 20 mg PO DAILY PRN; Protocol PRN Reason: edema Magnesium Hydroxide (Milk Of Magnesia 30 Ml Oral.Susp) 30 ml PO DAILY PRN PRN Reason: Constipation Melatonin (Melatonin 3 Mg Tablet) 6 mg PO BEDTIME PRN PRN Reason: Insomnia Methylprednisolone Sodium Succinate (Methylprednisolone Sod Succ 125 Mg/2 Ml Vial) 60 mg IVPUSH Q6H [facility] Last Admin: 10/12/22 08:56 Dose: 60 mg Metoprolol Tartrate (Metoprolol Tartrate 100 Mg Tablet) 100 mg PO BID [facility]; Protocol Last Admin: 10/12/22 08:56 Dose: 100 mg Metoprolol Tartrate (Metoprolol Tartrate 50 Mg Tablet) 50 mg PO DAILY [facility]; Protocol Last Admin: 10/12/22 08:56 Dose: 50 mg Nicotine (Nicotine 14 Mg Patch.Td24) 14 mg TRANSDERMA DAILY [facility] Last Admin: 10/12/22 08:57 Dose: Not Given Ondansetron HCl (Ondansetron Hcl 4 Mg/2 Ml Vial) 4 mg IVPUSH Q8H PRN PRN Reason: Nausea and Vomiting Pharmacy Consult (Consult Rx Perform Med Rec) 1 each MISCELLANE ONCE PRN PRN Reason: Consult order Pharmacy Consult (Consult Rx Vancomycin Dosing) 1 each MISCELLANE DAILY PRN PRN Reason: Consult order Sodium Chloride (0.9 % Sodium Chloride Flush 3 Ml Syringe) 3 ml IVFLUSH QSHIFT [facility] Last Admin: 10/12/22 08:57 Dose: 3 ml Thiamine HCl (Thiamine Hcl 100 Mg Tablet) 100 mg PO DAILY [facility] Last Admin: 10/12/22 08:56 Dose: 100 mg Tiotropium [place] (Tiotropium [place] 18 Mcg Cap.W.Dev) 1 puff INHALE RDAILY [facility] Last Admin: 10/12/22 08:43 Dose: 1 puff Vitamin D (Cholecalciferol (Vitamin D3) 25 Mcg Tablet) 25 mcg PO DAILY [facility] Last Admin: 10/12/22 08:56 Dose: 25 mcg Home Medications Medication Instructions Recorded Confirmed Last Taken Type albuterol sulfate 90 mcg/actuation 2 puff inhalation Q6H PRN Wheezing 08/12/20 10/09/22 10/08/22 History aerosol inhaler (ProAir HFA) aspirin 81 mg tablet,delayed 81 mg PO DAILY 08/12/20 10/09/22 10/08/22 History release thiamine HCl (vitamin B1) 100 mg 100 mg PO DAILY 11/05/20 10/09/22 10/08/22 History tablet (Vitamin B-1) cholecalciferol (vitamin D3) 25 25 mcg PO DAILY 11/07/20 10/09/22 10/08/22 History mcg (1,000 unit) capsule (Vitamin D3) folic acid 1 mg tablet 1 mg PO DAILY 11/07/20 10/09/22 10/08/22 History umeclidinium 62.5 mcg/actuation 1 inh inhalation BEDTIME 07/16/22 10/09/22 10/08/22 History blister powder for inhalation (Incruse Ellipta) atorvastatin 20 mg tablet 1 tab PO DAILY 10/09/22 10/09/22 10/08/22 History metoprolol tartrate 100 mg tablet 100 mg PO BID 10/09/22 10/09/22 10/08/22 History (Lopressor) metoprolol tartrate 50 mg tablet 50 mg PO DAILY 10/09/22 10/09/22 10/08/22 History Physical Exam Vital Signs: Vital Signs: Last Vital Signs Temp 98 F 10/12/22 15:00 Pulse 73 10/12/22 15:00 Resp 18 10/12/22 15:00 BP 126/68 10/12/22 15:00 Pulse Ox 97 10/12/22 15:00 O2 Del Method 10/12/22 15:00 O2 Flow Rate 5 10/12/22 15:00 FiO2 91 10/11/22 08:00 Oxygen Flow Rate 3 10/09/22 15:15 BMI result Body Mass Index 20.1 Const: General: cooperative HEENT: Head: Yes normal to inspection Face and sinus: Yes normal facial exam Mouth: Normal oral and palatal mucosa present Teeth and gingiva: dentition normal Eyes: General: appearance normal, both eyes and all related structures Pupils: Equal, round and reactive pupils present Resp: Other: occasional rhonchi bases Cardio: Rate: regular rate Rhythm: regular rhythm GI: Palpation (GI): Soft to palpation and nontender : General: Yes no CVA tenderness Back/Spine/Pelvis: Back: no CVA tenderness Skin: General skin exam: no rashes or lesions noted Neuro: General: moves all extremities Cranial nerves: Yes Equal, round and reactive pupils present Extrem: General: Yes normal to inspection Psych: Appearance: grossly normal Results Labs 10/09/22 13:13 10/12/22 06:46 Labs: BMP 10/12/22 06:46 Creatinine 0.86 Microbiology Microbiology Results: Microbiology 10/09/22 13:14 Blood - Venous Blood Culture - Final Coag negative Staphylococcus 10/09/22 13:13 Blood - Venous Blood Culture - Final Viridans streptococcus group Assessment and Plan (1) COPD exacerbation: Status: Acute (2) Hypoxemia: Status: Acute (3) Bacteremia: Status: Acute I believe coagulase negative staph is contaminant and strep viridans is also contaminant since there is only one culture showing this and this is usually associated with endocarditis with multiple blood cultures. Plan Stop Vancomycin. No need IV antibiotics but could give po Doxycycline 100 mg bid or azithromycin if purulent sputum continues Time Spent With Patient Time: Total time managing care of this patient today ____ minutes.
--- NOTE | 2022-10-12 19:40 | PC.NURSE ---
Pt refused Lovenox, on second attempt, he was educated on the purpose and risk of blood clot. Will reattempt again in 10 minutes. Pt verbalized understanding and refused.
[2022-10-13] MEDS: methylPREDNISolone Sod Succ 125 MG/2 ML VIAL 60 MG IVPUSH ×2 (02:37→07:47)
[2022-10-13 03:16] VITALS: BP 161/80; PULSE 51; RESP 18; TEMP 36; O2SAT 96
[2022-10-13 07:33] VITALS: BP 138/75; PULSE 66; RESP 17; TEMP 36.1; O2SAT 92
[2022-10-13 07:33] LABS: Vancomycin Random 10.1 mcg/mL (15-20)
[2022-10-13 07:34] LABS: Creatinine Clr Calc Pharmacy 69.7; Estimated Glomerular Filt Rate > 60
[2022-10-13] MEDS: Metoprolol Tartrate 50 MG TABLET PO (07:46)
[2022-10-13] MEDS: Metoprolol Tartrate 100 MG TABLET PO (07:46)
[2022-10-13] MEDS: Atorvastatin Calcium 20 MG TABLET PO (07:46)
[2022-10-13] MEDS: Aspirin Enteric Coated 81 MG TABLET.DR PO (07:46)
[2022-10-13] MEDS: Folic Acid 1 MG TABLET PO (07:46)
[2022-10-13] MEDS: Cholecalciferol (Vitamin D3) 25 MCG TABLET PO (07:46)
[2022-10-13] MEDS: Digoxin 0.125 MG TABLET PO (07:47)
[2022-10-13] MEDS: Thiamine HCL 100 MG TABLET PO (07:47)
[2022-10-13] MEDS: 0.9 % Sodium Chloride Flush 3 ML SYRINGE IVFLUSH (07:52)
[2022-10-13] MEDS: Albuterol Sulfate (0.083%) 2.5 MG/3 ML VIAL.NEB INHALE ×2 (08:12→11:44)
[2022-10-13] MEDS: Fluticasone/Vilanterol 100/25 BLST.W.DEV 1 PUFF INHALE (08:13)
[2022-10-13 08:14] VITALS: PULSE 50; RESP 16; O2SAT 97
[2022-10-13 11:44] VITALS: PULSE 72; RESP 16; O2SAT 90
--- NOTE | 2022-10-13 12:02 | MHC.CM.PN ---
IMM 10/13/22 Patient discharge today to home self care. Family will provide transport home.
[2022-10-13 13:13] VITALS: PULSE 72; O2SAT 92
--- NOTE | 2022-10-13 13:32 | P.DS_ITS ---
DS: Providers Provider Date of Service: 10/13/22 Date of admission: 10/09/22 18:35 Date of discharge: 10/13/22 Primary care physician: Kym Sebastian MD Consults: 10/12/22 08:17 Consult to Infectious Diseases Routine Consulting Provider: Ene Castaneda Reason for consultation: bacteremia Has provider been notified: No DS: Diagnosis Discharge Diagnosis (1) COPD exacerbation: Status: Acute (2) Atrial fibrillation with slow ventricular response: Status: Acute (3) Hypoxemia: Status: Acute (4) Bacteremia: Status: Acute DS: Summary Hospital Course Hospital Course: 67-year-old male with past medical history of COPD, CAD status post CABG, CHF, alcohol abuse, paroxysmal AFib on digoxin, initial presenting with shortness of breath and hypoxia. He states that he started having shortness of breath this morning and progressively got worst as the day went on. He got no relief with inhalers at home. He was put on BiPAP in the ED treated with IV steroid, Bronchodilators by Neb. He is not coughing and has no fever, RSV, Flu and covid are negative.? CXR?show bronchial wall thickening. No PNA. Hospital Course Weaned off BiPAP and admitted to general medical floor. Was started on broad- spectrum antibiotics to cover question early pneumonia. Blood cultures 2/2 grew coag-negative staph and [place] strep.. Consult was placed to Infectious Disease who deemed these to be a contaminant. On the day of discharge he was seen by Physical therapy who is acquainted with him. Physical therapy felt this is the best he has been and he did not need services at home. Given his history of COPD and productive cough he will be discharged on doxycycline 100 mg b.i.d. for 7 days and a prednisone taper. He can follow-up with his PCP in 2 weeks Time Spent with Patient Time attestation: Total time managing care of this patient today ____ minutes. Discharge coordination time: Greater than 30 minutes Quality: Safe Use of Opioids Does Pt have an Active Cancer Diagnosis on the Problem List?: No Quality: Stroke Does the patient have a stroke diagnosis?: No Physical Exam Vital Signs: Vital Signs: Last Vital Signs Temp 96.9 F 10/13/22 07:33 Pulse 72 10/13/22 13:13 Resp 16 10/13/22 11:44 BP 138/75 10/13/22 07:33 Pulse Ox 92 10/13/22 13:13 O2 Del Method 10/13/22 07:33 O2 Flow Rate 2.0 10/13/22 07:33 FiO2 91 10/11/22 08:00 Oxygen Flow Rate 3 10/09/22 15:15 BMI result Body Mass Index 20.1 Const: Other: Awake alert no acute distress Resp: Other: Diminished throughout but relatively clear with a few rhonchi that clear with cough Cardio: Other: Irregularly irregular; no S4; positive S1-S2; no S3 murmurs rubs or gallops GI: Other: Soft nontender nondistended normoactive bowel sounds Extrem: Other: No edema bilaterally DS: Data Data Completed and Pending Completed studies during hospitalization [Text1]: Procedures Detoxification Services for Substance Abuse Treatment (10/19/20) Labs on day of discharge: Laboratory Results - last 24 hr 10/13/22 10/13/22 07:00 07:00 Creatinine 0.81 Estim Creat Clear Calc 69.7 Estimated GFR > 60 Random Vancomycin 10.1 L Discharge Plan Discharge Anticipated Discharge Date/Time: 10/13/22 13:26 Patient Disposition: Home, Self-Care Discharge Diagnosis: COPD exacerbation Referrals: Kym Seabstian MD [Primary Care Provider] - 1 Week Discharge Medications: New doxycycline hyclate 100 mg tablet 100 mg PO BID Qty: 14 0RF prednisone 10 mg tablet See Rx Instructions .Route .COMPLEX Qty: 45 0RF Rx Instructions: 10 mg orally; 5 tabs p.o. daily x3 days; 4 tabs p.o. daily x3 days; 3 tabs daily x3 days; 2 tabs daily x3 days; 1 tab daily x3 days Continued digoxin 125 mcg (0.125 mg) tablet 125 mcg PO DAILY 90 Days Qty: 90 0RF Rx Instructions: Keep cardiology follow up visit this month furosemide [Lasix] 20 mg tablet 20 mg PO DAILY PRN (Reason: edema) 30 Days Qty: 90 2RF thiamine HCl (vitamin B1) [Vitamin B-1] 100 mg Tablet 100 mg PO DAILY folic acid 1 mg Tablet 1 mg PO DAILY cholecalciferol (vitamin D3) [Vitamin D3] 25 mcg (1,000 unit) Capsule 25 mcg PO DAILY atorvastatin 20 mg tablet 1 tab PO DAILY metoprolol tartrate 50 mg Tablet 50 mg PO DAILY metoprolol tartrate [Lopressor] 100 mg tablet 100 mg PO BID aspirin 81 mg tablet,delayed release (DR/EC) 81 mg PO DAILY albuterol sulfate [ProAir HFA] 90 mcg/actuation HFA aerosol inhaler 2 puff inhalation Q6H PRN (Reason: Wheezing) Incruse Ellipta 62.5 mcg/actuation blister with device 1 inh inhalation BEDTIME fluticasone propion-salmeterol [Wixela Inhub] 250-50 mcg/dose blister with device 1 inh inhalation BID 30 Days Qty: 60 5RF Discharge Orders: Discharge Order (Routine); Ordered 10/13/22 Ordered By: Miguel A Bermeo Diet: Advance to usual diet Activity on Discharge: As tolerated Stand Alone Forms: Patient Portal Discharge page Care Plan Goals: Complete course of doxycycline twice daily for 7 days and prednisone taper as outlined Health Concerns: Refrain from alcohol and tobacco Plan of Treatment: Resume home O2; follow-up with PCP 2 weeks Assessment: See discharge summary
--- NOTE | 2022-10-13 14:21 | PC.NURSE ---
Pt was d/c without services, Pt denies SOB,chest pain,headache. Pt left with w/c accompany with the staff. Pt belongs was given.
== END 2022-10-13 14:25 | disposition home or self-care (01) | DRG 190 ==
LOC: HO.ED 14:49 → HO.EDOVER 18:51 → HO.S3 21:19
PROVIDERS: Admitting Provider Internal Medicine; Emergency Provider Emergency Medicine; PCP Student in an Organized Health Care Education/Training Program; Visit Provider Hospitalist
DX: J44.1 Chronic obstructive pulmonary disease with (acute) exacerbation (principal); J96.21 Acute and chronic respiratory failure with hypoxia; I50.32 Chronic diastolic (congestive) heart failure; I48.21 Permanent atrial fibrillation; I25.10 Atherosclerotic heart disease of native coronary artery without angina pectoris; E78.5 Hyperlipidemia, unspecified; F10.11 Alcohol abuse, in remission; F17.210 Nicotine dependence, cigarettes, uncomplicated; Z71.6 Tobacco abuse counseling; Z20.822 Contact with and (suspected) exposure to COVID-19; I25.2 Old myocardial infarction; Z95.1 Presence of aortocoronary bypass graft; Z79.51 Long term (current) use of inhaled steroids; Z79.83 Long term (current) use of bisphosphonates; Z79.899 Other long term (current) drug therapy
CPT/HCPCS: 0241U; 36415; 71045; 71250; 80053; 80162; 80202; 82077; 82565; 82803; 83605; 83880; 84484; 85025; 85610; 87040; 87205; 93005; 94640; 94660; 97162; 99285; J1650; J2930; J3370; J3371

== ENCOUNTER → 2023-01-12 13:55 | Outpatient (BNVA) | payer MEDICARE, MEDICAID, SELFPAY | PROVIDERS: PCP Student in an Organized Health Care Education/Training Program; Visit Provider Internal Medicine | DX: J44.0 Chronic obstructive pulmonary disease with (acute) lower respiratory infection (principal); J96.91 Respiratory failure, unspecified with hypoxia; I48.91 Unspecified atrial fibrillation; F10.10 Alcohol abuse, uncomplicated; Z72.0 Tobacco use | CPT/HCPCS: 99212 ==

== ENCOUNTER 2023-04-12 16:00 | Outpatient (AMB) | payer MEDICARE, MEDICAID, SELFPAY ==
[2023-04-12 16:11] VITALS: BP 104/64; PULSE 75; O2SAT 93; BMI 15.2
--- NOTE | 2023-04-12 16:11 | MHC.OFFVIS ---
Intake Vital Signs 04/12/23 16:11 Height 5 ft 10 in Weight 106 lb BMI 15.2 BP 104/64 Blood Pressure Location Lt brachial Position Sitting Pulse 75 Pulse Source Pulse Oximeter Pulse Oximetry (%) 93 Oxygen Delivery Method Room Air Intake Visit Reasons: COPD Intake Note: pt is here for follow up and states he is at his base line. Lay Up Operator Required: No Allergies No Known Allergies [No Known Allergies*] Allergy (Verified 04/12/23 16:23) Medication List - Last Reconciled 04/12/23 by Shakira Galvez MD Advair Diskus 250-50 mcg/dose (fluticasone propion-salmeterol) 1 inh inhalation BID NS albuterol sulfate 90 mcg/actuation (ProAir HFA) 2 puffs inhalation Q6H PRN aspirin 81 mg PO DAILY atorvastatin 1 tab PO DAILY Breo Ellipta 200-25 mcg/dose (fluticasone furoate-vilanterol) 1 inh inhalation Q24H 30 days NS cholecalciferol (vitamin D3) (Vitamin D3) 25 mcg PO DAILY digoxin 125 mcg PO DAILY 90 days folic acid 1 mg PO DAILY furosemide (Lasix) 20 mg PO DAILY PRN 30 days metoprolol tartrate 50 mg PO DAILY metoprolol tartrate (Lopressor) 100 mg PO BID thiamine HCl (vitamin B1) (Vitamin B-1) 100 mg PO DAILY Do you need a note to return to daycare/school/sports/work: No HPI COPD HPI Details This 67 years old gentleman a case of severe chronic obstructive, his smoker, with history of alcohol abuse. Is here for his. Follow-up after 3 months Unfortunately continues to smoke 1 pack of cigarettes a day. ,Has mild to moderate intermittent cough gets short of breath on exertion but he walks slowly not enough to make. Him short of breath He is supposed to have portable oxygen but he does not bring it out with him. He claims that he uses oxygen at home as needed. [facility] Medical History Alcohol abuse Atherosclerotic cardiovascular disease Atrial fibrillation with slow ventricular response CAD (coronary artery disease) CAP (community acquired pneumonia) CHF (congestive heart failure) Chronic respiratory failure COPD (chronic obstructive pulmonary disease) History of ischemic cardiomyopathy History of [place] (myocardial infarction) History of seizure due to alcohol withdrawal Hypercholesteremia Hypoxemia Respiratory failure with hypoxia Tobacco abuse Surgical History History of coronary artery bypass graft x 3 (~2012) History of surgery on lower extremity (~2018) Social History Household Members: Family Household Members Other:: CHILDREN,GRANDCHILDREN Housing: House Do you presently have visiting nurse or other home services: No Alcohol intake: never Patient Tobacco Use Status: Current everyday Tobacco user Tobacco use type: Cigarette Cigarette Packs Per Day: 1 Cigarettes Per Day: 15 Years Smoked: 40+ e-Cigarette/Vaping Use: Never Used Second Hand Smoke Exposure: No Advance Directives Date on File: 11/08/20 service: No Current occupational status: retired Review of Systems Const All systems reviewed & are unremarkable except as noted in HPI and below Reports fatigue, Reports lethargy and Reports weakness (General weakness of the muscles) Eyes Reports no additional complaints ENT Reports no additional complaints Card Denies chest pain, Reports irregular heart rhythm (Atrial fib) and Denies leg edema Resp Reports as per HPI GI Reports no additional complaints Reports no additional complaints Musc Reports abnormal gait (Needs a cane to walk), Reports back pain and Reports arthralgias Neuro Reports abnormal gait (Needs a cane to walk) and Reports weakness (General weakness of the muscles) Psych Reports no additional complaints Endo Reports fatigue Physical Exam Vital Signs: Last Vital Signs Pulse 75 04/12/23 16:11 BP 104/64 04/12/23 16:11 Pulse Ox 93 04/12/23 16:11 Oxygen Delivery Method Room Air 04/12/23 16:11 BMI result Body Mass Index 15.2 Const Other: Chronically sick looking of a thin build General: comfortable, no acute distress, alert and awake Orientation/consciousness: patient oriented x3 HEENT Head: Yes normal to inspection General nose exam: No nasal polyps present and No nasal discharge present Face and sinus: Yes sinuses nontender Mouth: oropharynx normal Throat: Yes posterior oropharynx normal Eyes General: appearance normal, both eyes and all related structures Neck Neck: Yes normal visual inspection, Yes no lymphadenopathy, Yes trachea midline and Yes no JVD Thyroid: Thyroid normal Chest Chest palpation & inspection: abnormal inspection of the chest (Has mid sternal scar from previous cardiac surgery), normal palpation of entire chest wall and no tenderness Resp Other: Percussion note is resonant, breath sounds are quite distant with prolonged expiratory phase. But no wheezes or rhonchi are heard today Cardio Palpation: normal PMI Rate: not tachycardic Rhythm: abnormal rhythm (Atrial fibrillation) Heart sounds: no gallops and no murmurs Peripheral pulses: Peripheral pulses 2+ throughout GI Palpation (GI): Soft to palpation, Tenderness to palpation present (GI), No hepatosplenomegaly present and Palpable mass present Auscultation: normal bowel sounds Back/Spine/Pelvis Thoracic/Lumbar Spine: thoracic and lumbar spine normal to inspection Skin General skin exam: no rashes or lesions noted Neuro General: patient oriented x3 and no focal motor deficits Cranial nerves: Yes CN's II-XII intact bilaterally Extrem General: Yes normal to inspection, Yes no clubbing, cyanosis or edema and Yes no calf tenderness Psych Speech and movement: Normal speech and movement present Assessment & Plan Assessment & Plan (1) Tobacco abuse: Comment: LONG TIME SMOKER, COUNSELLED TO QUIT. RISKS OF CONTINUED SMOKING AND EXPLAINED IN DETAIL . HE HE IS RESISTANT TO ANY COUNSELING AND IS NOT EXPECTED TO STOP SMOKING. WILL REFER FOR ANNUAL LUNG SCREENING PROGRAM , TO WHICH HE AGREES . Code(s): Z72.0 - Tobacco use (2) COPD (chronic obstructive pulmonary disease): Comment: PFT - C/W Severe Obstructive airway disorder - FVC 69% FEV1 24% TLC 78 Residual Vol 127, DLCO Markedly decreased. TX: INCRUSE ELLIPTA ONE INH DAILY ADVAIR 250-50 ONE INH BID AND PROAIR HFA 2 PUFFS Q 4-6 HOURS ONLY P.R.N.. * Told that as long as he is using Advair twice a day he does not need to use Breo, Code(s): J44.9 - Chronic obstructive pulmonary disease, unspecified Qualifiers: COPD type: COPD with acute lower respiratory infection Qualified Code(s): J44.0 - Chronic obstructive pulmonary disease with (acute) lower respiratory infection (3) Respiratory failure with hypoxia: Comment: He desaturates very quickly on walking. He is supposed to use O2 2 L/minute at home and also for outdoors if he goes out. Patient has not been using the O2 when he walks or goes outdoors. I STRESSED THAT HE SHOULD USE O2 2 L/MINUTE AT NIGHT AND P.R.N. DURING THE DAYTIME AND DEFINITELY IF HE HAS TO GO OUT OF THE HOUSE FOR MORE THAN 15 MINUTES HE SHOULD TAKE HIS PORTABLE CYLINDER WITH HIM. Code(s): J96.91 - Respiratory failure, unspecified with hypoxia Coding Level of Care Code Est Pt Level 4 (39476) Diagnoses Tobacco abuse Z72.0 COPD (chronic obstructive pulmonary disease) J44.0 COPD type: COPD with acute lower respiratory infection Respiratory failure with hypoxia J96.91
== END 2023-04-12 16:32 | disposition home or self-care (01) ==
PROVIDERS: PCP Student in an Organized Health Care Education/Training Program; Visit Provider Internal Medicine
DX: Z72.0 Tobacco use (principal); J44.0 Chronic obstructive pulmonary disease with (acute) lower respiratory infection; J96.91 Respiratory failure, unspecified with hypoxia
CPT/HCPCS: 99214

== ENCOUNTER → 2023-04-12 16:00 | Outpatient (BNVA) | payer MEDICARE, MEDICAID, SELFPAY | PROVIDERS: PCP Student in an Organized Health Care Education/Training Program; Visit Provider Internal Medicine | DX: J44.0 Chronic obstructive pulmonary disease with (acute) lower respiratory infection (principal); J96.91 Respiratory failure, unspecified with hypoxia; F10.20 Alcohol dependence, uncomplicated; Z72.0 Tobacco use; Z95.1 Presence of aortocoronary bypass graft | CPT/HCPCS: 99212 ==

== ENCOUNTER 2023-10-22 13:34 | Outpatient (AMB) | payer MEDICARE, MEDICAID, SELFPAY ==
--- NOTE | 2023-10-22 13:44 | A.OFFVIS_ITS ---
Intake Vital Signs 10/22/23 13:45 Height 5 ft 10 in Weight 113 lb 5.082 oz BMI 16.3 BP 104/62 Blood Pressure Location Rt brachial Position Sitting Pulse 109 H Pulse Source Monitor Intake Visit Reasons: f/up Allergies No Known Allergies [No Known Allergies*] Allergy (Verified 10/22/23 13:48) Medication List - Last Reconciled 10/22/23 by Deepthi Silva, BEFORE S[employer]OL-[employer] Advair Diskus 250-50 mcg/dose (fluticasone propion-salmeterol) 1 inh inhalation BID NS albuterol sulfate 90 mcg/actuation (ProAir HFA) 2 puffs inhalation Q6H PRN aspirin 81 mg PO DAILY atorvastatin 20 mg PO DAILY Breo Ellipta 200-25 mcg/dose (fluticasone furoate-vilanterol) 1 inh inhalation Q24H 30 days NS cholecalciferol (vitamin D3) (Vitamin D3) 25 mcg PO DAILY digoxin 125 mcg PO DAILY folic acid 1 mg PO DAILY furosemide 20 mg PO DAILY PRN metoprolol tartrate 100 mg PO DIRECTED thiamine HCl (vitamin B1) (Vitamin B-1) 100 mg PO DAILY HPI f/up HPI Details Noble is a 68 year-old male with past medical history of hyperlipidemia, smoking, alcohol abuse, CAD with coronary artery bypass grafting, persistent atrial fibrillation who presents for follow-up. His last prior visit to our office was 09/02/2022. Today he reports that he has been doing generally well since his last visit. He was recently in the emergency room for shortness of breath and required treatment with BiPAP. At that time he refused lab work and IV placement. He tells me his breathing is back to normal. He has chronic shortness of breath with exertion due to COPD from smoking. He continues to smoke around 1/2 pack of cigarettes per day. He admits to still drinking a pt of alcohol daily. No chest discomfort at rest or with activity. No heart palpitations, presyncope, syncope, PND, orthopnea or edema. He lives on the 3rd floor of a single family home. His brother, son and grandchildren live in the home as well. He describes shortness of breath with stair climbing. He tells me he did run out of some of his medications. He is requesting refills. [facility] Medical History Respiratory failure with hypoxia History of [place] (myocardial infarction) History of seizure due to alcohol withdrawal Atrial fibrillation with slow ventricular response Hypoxemia CAP (community acquired pneumonia) Chronic respiratory failure Atherosclerotic cardiovascular disease CHF (congestive heart failure) CAD (coronary artery disease) History of ischemic cardiomyopathy Tobacco abuse Alcohol abuse Hypercholesteremia COPD (chronic obstructive pulmonary disease) Surgical History History of coronary artery bypass graft x 3 (~2012) History of surgery on lower extremity (~2018) Social History Household Members: Family Household Members Other:: CHILDREN,GRANDCHILDREN Housing: House Do you presently have visiting nurse or other home services: No Alcohol intake: current Alcohol intake frequency: 3 or more drinks per day Alcohol type: hard liquor Patient Tobacco Use Status: Current everyday Tobacco user Tobacco use type: Cigarette Cigarette Packs Per Day: 1 Cigarettes Per Day: 15 Years Smoked: 40+ e-Cigarette/Vaping Use: Never Used Second Hand Smoke Exposure: No Advance Directives Date on File: 11/08/20 service: No Current occupational status: retired Review of Systems Const All systems reviewed & are unremarkable except as noted in HPI and below ENT Denies dizziness Card Denies chest pain, Denies chest pain at rest, Denies chest pain with activity, Denies rapid heart rate, Denies pedal edema, Denies edema, Denies leg edema, Denies lightheadedness, Denies palpitations, Reports dyspnea, Reports dyspnea on exertion and Denies orthopnea Resp Reports cough, Reports dyspnea and Reports dyspnea on exertion GI Denies hematochezia and Denies change in stool character Musc Details: uses cane Denies abnormal gait, Denies limited range of motion, Denies muscle cramps, Denies muscle weakness, Denies numbness, Denies radiating pain into limb, Denies stiffness and Denies tingling Neuro Denies abnormal gait, Denies dizziness, Denies numbness and Denies tingling Endo Denies palpitations Physical Exam Vital Signs: Last Vital Signs Pulse 109 H 10/22/23 13:45 BP 104/62 10/22/23 13:45 BMI result Body Mass Index 16.3 Const Other: Frail elderly male General: cooperative and no acute distress Orientation/consciousness: patient oriented x3 Neck Neck: Yes normal visual inspection and Yes no JVD Resp Effort & Inspection: normal respiratory effort Auscultation: clear to auscultation bilaterally, no crackles, no rales, no rhonchi and no wheezes Cardio Jugular venous distension: no JVD Rate: regular rate Rhythm: regular rhythm Heart sounds: S1 normal heart sound present, S2 normal heart sound present, no gallops, no murmurs and no rubs Neuro General: patient oriented x3 Extrem General: Yes normal to inspection and No no pedal edema Psych Appearance: grossly normal Mental Status: mental status grossly normal Speech and movement: Normal speech and movement present Office Procedures EKG Details: Today, read by me, atrial fibrillation with rapid ventricular response, rate 109, ST and T-wave abnormality inferiorly, QTC 452 milliseconds [id number], Complete Assessment & Plan Assessment & Plan (1) Atrial fibrillation with RVR: Code(s): I48.91 - Unspecified atrial fibrillation Plan: History of atrial fibrillation, likely persistent at this time. Last prior visit to our office 09/02/2022. He was being treated with heart rate control. He has not been on anticoagulation due to alcohol abuse. He continues to drink a pint of hard alcohol daily. He denies heart palpitations. He tells me he ran out of some of his medications. EKG done today showing atrial fibrillation with RVR, rate 109. Will send refills for his metoprolol today. Reviewed need for strict compliance. Heart rate should improve once he is on his usual medications. He is willing to get lab work today, will add digoxin level which may be low. He tells me he last took it around 2 days ago. Last echocardiogram done 09/16/22 had shown EF 30-35%, inferior wall and basal inferior akinetic, [id number] TR, moderate to severe pulmonary hypertension. This EF was a drop from his last echo done 08/19/2020 when EF was normal. A nuclear stress test was done on 09/17/2022 showing normal myocardial perfusion imaging. His reduced EF may be related to uncontrolled AFib rates. He has no clinical signs of heart failure on examination. Will be updating his echocardiogram to re- evaluate EF. Will check Holter monitor to evaluate AF and average heart rates. All the above reviewed with him and he states understanding. Cardiology follow- up in the office 6 months, sooner if needed. (2) CAD (coronary artery disease): Code(s): I25.10 - Atherosclerotic heart disease of [place] coronary artery without angina pectoris Plan: History of coronary artery bypass grafting x3 in 2013. EKG does have ST and T- wave abnormality inferiorly. Nuclear stress test done last year showed no ischemia. He denies any chest discomfort at rest or with activity. He does have shortness of breath with activity which can be explained by his COPD and smoking. Continue aspirin, high-dose atorvastatin, metoprolol. (3) H/O heart bypass surgery: Comment: CABG x3 2013 for severe ischemic cardiomyopathy. Code(s): Z95.1 - Presence of aortocoronary bypass graft Plan: As above Orders: Orders Digoxin Today I25.10 - Atherosclerotic heart disease of [place] coronary artery without angina pectoris, I48.91 - Unspecified atrial fibrillation CA echo transthoracic complete Today I25.10 - Atherosclerotic heart disease of [place] coronary artery without angina pectoris, I48.91 - Unspecified atrial fibrillation Comprehensive Met. Panel Today I25.10 - Atherosclerotic heart disease of [place] coronary artery without angina pectoris, I48.91 - Unspecified atrial fibrillation Complete Blood Count Auto Diff Today I25.10 - Atherosclerotic heart disease of [place] coronary artery without angina pectoris ECG 3 day holter monitor Today I48.91 - Unspecified atrial fibrillation Coding Level of Care Code Est Pt Level 4 (86161) Diagnoses Atrial fibrillation with RVR I48.91 CAD (coronary artery disease) I25.10 H/O heart bypass surgery Z95.1 CPT Codes EKG - CPT: 79258-[id number], Complete ([id number]) Time Spent (min) 30
[2023-10-22 13:45] VITALS: BP 104/62; PULSE 109; BMI 16.3
== END 2023-10-22 14:23 | disposition home or self-care (01) ==
PROVIDERS: PCP Student in an Organized Health Care Education/Training Program; Visit Provider Nurse Practitioner Family
DX: I48.91 Unspecified atrial fibrillation (principal); I25.10 Atherosclerotic heart disease of native coronary artery without angina pectoris; Z95.1 Presence of aortocoronary bypass graft
CPT/HCPCS: 93010; 99214

== ENCOUNTER 2023-10-22 13:34 | Outpatient (REF) | payer MEDICARE, MEDICAID, SELFPAY ==
[2023-10-22 14:40] LABS: MANUAL DIFF FLAG NO
[2023-10-22 15:31] LABS: Alanine Aminotransferase 8 U/L (0-40); Albumin Level 4.2 g/dL (3.5-5.0); Alkaline Phosphatase 149 U/L (39-117); Anion Gap 16 (12-20); Aspartate Amino Transferase 17 U/L (5-37); Bilirubin Total 0.5 mg/dL (0.0-1.0); Blood Urea Nitrogen 11 mg/dL (9-16); Calcium 9.5 mg/dL (8.4-10.2); Carbon Dioxide 25 mmol/L (22-29); Chloride 99 mmol/L (96-108); Estimated Glomerular Filt Rate > 60; Glucose Random 87 mg/dL (60-115); Potassium 3.4 mmol/L (3.3-5.1); Sodium 137 mmol/L (135-145); Total Protein 7.6 g/dL (6.5-8.0)
[2023-10-22 15:33] LABS: Digoxin < 0.2 ng/mL (0.8-2.0)
[2023-10-22 15:34] LABS: Basophils Absolute Auto 0.1 X10*3/uL (0.0-0.2); Basophils Percent Auto 1.1 % (0-2); Eosinophils Absolute Auto 0.1 X10*3/uL (0.0-0.4); Eosinophils Percent Auto 1.5 % (0-4); Hematocrit 41.5 % (42.0-52.0); Hemoglobin 14.1 g/dl (14.0-18.0); Imm Gran Abs Auto 0.04 X10*3/uL (0.00-0.03); Imm Gran Pct Auto 0.4 % (0.0-0.4); Lymphocytes Absolute Auto 1.3 X10*3/uL (1.2-4.9); Mean Corpuscular Hemoglobin 34.4 pg (27.0-33.0); Mean Corpuscular Volume 101.2 fL (80.0-98.0); Mean Platelet Volume 10.2 fL (9.4-12.4); Monocytes Absolute Auto 1.1 X10*3/uL (0.1-1.2); Monocytes Percent Auto 12.1 % (2-11); Neutrophils Absolute Auto 6.2 x10*3/uL (2.0-8.3); Neutrophils Percent Auto 69.9 % (45-73); Platelet Count 269 X10*3/uL (160-400); Red Cell Distribution Width 13.5 % (11.0-16.0); White Blood Count 8.9 X10*3/uL (4.8-10.8)
== END 2023-10-22 13:35 | disposition home or self-care (01) ==
LOC: HO.LAB 13:34
PROVIDERS: PCP Student in an Organized Health Care Education/Training Program; Visit Provider Nurse Practitioner Family
DX: I48.91 Unspecified atrial fibrillation (principal); I25.10 Atherosclerotic heart disease of native coronary artery without angina pectoris; Z95.1 Presence of aortocoronary bypass graft; Z79.899 Other long term (current) drug therapy
CPT/HCPCS: 36415; 80053; 80162; 85025; 93005; 99212

== ENCOUNTER 2023-11-09 15:58 | Outpatient (AMB) | payer MEDICARE, MEDICAID, SELFPAY ==
[2023-11-09 16:02] VITALS: BP 72/48; PULSE 76; O2SAT 95; BMI 15.8
--- NOTE | 2023-11-09 16:02 | A.OFFVIS_ITS ---
Intake Vital Signs 11/09/23 16:02 Height 5 ft 10 in Weight 110 lb 3.698 oz BMI 15.8 BP 72/48 L Blood Pressure Location Lt brachial Position Sitting Pulse 76 Pulse Source Pulse Oximeter Pulse Oximetry (%) 95 Oxygen Delivery Method Room Air Intake Visit Reasons: COPD Intake Note: pt is here for follow up and states he cannot catch his breath today, he has oxygen at home that he uses as needed for shortness of breath. Apparel Cutter Required: No Allergies No Known Allergies [No Known Allergies*] Allergy (Verified 11/09/23 16:08) Medication List - Last Reconciled 11/09/23 by Shakira Galvez MD albuterol sulfate 90 mcg/actuation (ProAir HFA) 2 puffs inhalation Q6H PRN aspirin 81 mg PO DAILY atorvastatin 20 mg PO DAILY Breo Ellipta 200-25 mcg/dose (fluticasone furoate-vilanterol) 1 inh inhalation Q24H 30 days NS cholecalciferol (vitamin D3) (Vitamin D3) 25 mcg PO DAILY digoxin 125 mcg PO DAILY folic acid 1 mg PO DAILY furosemide 20 mg PO DAILY PRN metoprolol tartrate 100 mg PO BID thiamine HCl (vitamin B1) (Vitamin B-1) 100 mg PO DAILY Do you need a note to return to daycare/school/sports/work: No HPI COPD HPI Details This 68 years old gentleman is here for follow-up, or his COPD. He lives on the 3rd floor of 1 family home. When he climbs 1 flight of stairs he has to stop there for a few minutes to catch his breath. He has intermittent cough but mostly nonproductive. He has stationary concentrator at home, uses O2 p.r.n. during the daytime, and also for a short period before he goes to sleep. He is supposed to use the portable unit also but he never brings it along when he goes outdoors. He is still smoking , claims that he has cut down to half pack a day. His current inhaler is Breo 200-25 1 inhalation daily and albuterol HFA 2 puffs p.r.n. which is not very of. Luckily he has had no acute respiratory infection. [facility] Medical History Respiratory failure with hypoxia History of [place] (myocardial infarction) History of seizure due to alcohol withdrawal Atrial fibrillation with slow ventricular response Hypoxemia CAP (community acquired pneumonia) Chronic respiratory failure Atherosclerotic cardiovascular disease CHF (congestive heart failure) CAD (coronary artery disease) History of ischemic cardiomyopathy Tobacco abuse Alcohol abuse Hypercholesteremia COPD (chronic obstructive pulmonary disease) Surgical History History of coronary artery bypass graft x 3 (~2012) History of surgery on lower extremity (~2018) Social History Household Members: Family Household Members Other:: CHILDREN,GRANDCHILDREN Housing: House Do you presently have visiting nurse or other home services: No Alcohol intake: current Alcohol intake frequency: 3 or more drinks per day Alcohol type: hard liquor Patient Tobacco Use Status: Current everyday Tobacco user Tobacco use type: Cigarette Cigarette Packs Per Day: 0.5 Cigarettes Per Day: 10 Years Smoked: 40+ e-Cigarette/Vaping Use: Never Used Second Hand Smoke Exposure: No Advance Directives Date on File: 11/08/20 service: No Current occupational status: retired Review of Systems Const All systems reviewed & are unremarkable except as noted in HPI and below Reports fatigue, Reports lethargy and Reports weakness (General weakness of the muscles) Eyes Reports no additional complaints ENT Reports no additional complaints Card Denies chest pain, Reports irregular heart rhythm (Atrial fib) and Denies leg edema Resp Reports as per HPI GI Reports no additional complaints Reports no additional complaints Musc Reports abnormal gait (Needs a cane to walk), Reports back pain and Reports arthralgias Neuro Reports abnormal gait (Needs a cane to walk) and Reports weakness (General weakness of the muscles) Psych Reports no additional complaints Endo Reports fatigue Physical Exam Vital Signs: Last Vital Signs Pulse 76 11/09/23 16:02 BP 72/48 L 11/09/23 16:02 Pulse Ox 95 11/09/23 16:02 Oxygen Delivery Method Room Air 11/09/23 16:02 BMI result Body Mass Index 15.8 Const Other: Chronically sick looking of a thin build. Not well kempt. General: comfortable, no acute distress, alert and awake Orientation/consciousness: patient oriented x3 HEENT Head: Yes normal to inspection General nose exam: No nasal polyps present and No nasal discharge present Face and sinus: Yes sinuses nontender Mouth: oropharynx normal Throat: Yes posterior oropharynx normal Eyes General: appearance normal, both eyes and all related structures Neck Neck: Yes normal visual inspection, Yes no lymphadenopathy, Yes trachea midline and Yes no JVD Thyroid: Thyroid normal Chest Chest palpation & inspection: abnormal inspection of the chest (Has mid sternal scar from previous cardiac surgery), normal palpation of entire chest wall and no tenderness Resp Other: Percussion note is resonant, breath sounds are quite distant with prolonged expiratory phase. But no wheezes or rhonchi are heard today Cardio Palpation: normal PMI Rate: not tachycardic Rhythm: abnormal rhythm (Atrial fibrillation) Heart sounds: no gallops and no murmurs Peripheral pulses: Peripheral pulses 2+ throughout GI Palpation (GI): Soft to palpation, Tenderness to palpation present (GI), No hepatosplenomegaly present and Palpable mass present Auscultation: normal bowel sounds Back/Spine/Pelvis Thoracic/Lumbar Spine: thoracic and lumbar spine normal to inspection Skin General skin exam: no rashes or lesions noted Neuro General: patient oriented x3 and no focal motor deficits Cranial nerves: Yes CN's II-XII intact bilaterally Extrem General: Yes normal to inspection, Yes no clubbing, cyanosis or edema and Yes no calf tenderness Psych Speech and movement: Normal speech and movement present Assessment & Plan Assessment & Plan (1) COPD (chronic obstructive pulmonary disease): Comment: PFT - C/W Severe Obstructive airway disorder - FVC 69% FEV1 24% TLC 78 Residual Vol 127, DLCO Markedly decreased. He claims that his respiratory condition has remained stable. Code(s): J44.9 - Chronic obstructive pulmonary disease, unspecified Qualifiers: COPD type: COPD with acute lower respiratory infection Qualified Code(s): J44.0 - Chronic obstructive pulmonary disease with (acute) lower respiratory infection Plan: [place]: BREO 200-25 one inh daily AND PROAIR HFA 2 PUFFS Q 4-6 HOURS ONLY P.R.N.. Prescription renewed . (2) Respiratory failure with hypoxia: Comment: He desaturates very quickly on walking. He is supposed to use O2 2 L/minute at home and also for outdoors if he goes out. Patient has not been using the O2 when he walks or goes outdoors. I STRESSED THAT HE SHOULD USE O2 2 L/MINUTE AT NIGHT AND P.R.N. DURING THE DAYTIME AND DEFINITELY IF HE HAS TO GO OUT OF THE HOUSE FOR MORE THAN 15 MINUTES HE SHOULD TAKE HIS PORTABLE CYLINDER WITH HIM. Code(s): J96.91 - Respiratory failure, unspecified with hypoxia (3) Tobacco abuse: Comment: LONG TIME SMOKER, STILL SMOKING BUT CLAIMS THAT HE HAS CUT DOWN TO 10 CIGARETTES A DAY. Code(s): Z72.0 - Tobacco use Plan: COUNSELLED TO QUIT. RISKS OF CONTINUED SMOKING AND EXPLAINED IN DETAIL . HE IS RESISTANT TO ANY COUNSELING AND IS NOT EXPECTED TO STOP SMOKING. I ADVISED HIM TO AT LEAST CUT DOWN THE NUMBER OF CIGARETTES , TO 7 AND THEN 5 . HE WAS REFERRED FOR ANNUAL LUNG SCREENING PROGRAM, BUT HAS HAD NO INITIAL VISIT YET. LAST CT SCAN OF THE CHEST IN OCTOBER 2022, SHOWED EMPHYSEMA, NO SIGNIFICANT PULMONARY NODULES. Plan I ADVISED HIM TO REGISTER HIMSELF IN THE ANNUAL LUNG SCREENING PROGRAM. Medications: New albuterol sulfate 90 mcg/actuation 2 puffs inhalation Q4-6H PRN 8.5 grams 3RF shortness of breath or wheezing 30 days Coding Level of Care Code Est Pt Level 3 (56889) Diagnoses Chronic obstructive pulmonary disease with acute lower respiratory infection J44.0 COPD type: COPD with acute lower respiratory infection Respiratory failure with hypoxia J96.91 Tobacco abuse Z72.0
== END 2023-11-09 16:22 | disposition home or self-care (01) ==
PROVIDERS: PCP Student in an Organized Health Care Education/Training Program; Visit Provider Internal Medicine
DX: J44.0 Chronic obstructive pulmonary disease with (acute) lower respiratory infection (principal); J96.91 Respiratory failure, unspecified with hypoxia; Z72.0 Tobacco use
CPT/HCPCS: 99213

== ENCOUNTER → 2023-11-09 15:58 | Outpatient (BNVA) | payer MEDICARE, MEDICAID, SELFPAY | PROVIDERS: PCP Student in an Organized Health Care Education/Training Program; Visit Provider Internal Medicine | DX: J44.0 Chronic obstructive pulmonary disease with (acute) lower respiratory infection (principal); J96.91 Respiratory failure, unspecified with hypoxia; Z72.0 Tobacco use | CPT/HCPCS: 99212 ==

== ENCOUNTER → 2023-12-01 13:55 | Outpatient (REF) | payer MEDICARE, MEDICAID, SELFPAY ==
--- NOTE | 2023-12-01 13:59 | CA_ITS ---
Transthoracic Echocardiogram Patient (Last, First, Middle): Noble Valencia F Gender: Male Date of : 1955 Age: 68 Procedure Date: 12/01/2023 Procedure Type: Transthoracic Echocardiogram Location: OP Height: 175.26 cm Weight: 61.24 kg BSA: 1.75 m2 Heart Rate: bpm BP: 120 / 62 mmHg Rewinder: SB Referring MD: Deepthi Silva DISK GRINDERIsaac Symptoms: I25.10 - Atherosclerotic heart disease of [place] coronary artery without... Study Quality: Adequate ECG Rhythm: Atrial Fibrillation w RVR Conclusions: - The left ventricular systolic function is moderately decreased. The visually estimated ejection fraction is between 30-35%. - The basal inferior and basal inferoseptal segments are akinetic. - The basal inferolateral segment is hypokinetic. - No obvious valvular pathology seen on this study. - Mild pulmonary hypertension is present. Findings Left Ventricle Normal left ventricular cavity size. There is normal left ventricular wall thickness. The left ventricular systolic function is moderately decreased. The visually estimated ejection fraction is between 30-35%. Diastolic function is indeterminate on the basis of available data. Wall Motion Rest Echo Findings The basal inferolateral segment is hypokinetic. The basal inferior and basal inferoseptal segments are akinetic. Right Ventricle Mildly increased right ventricular cavity size. There is mildly decreased right ventricular systolic function. Atria The left atrium is normal in size. The right atrium is mildly dilated. Aortic Valve There is a normal trileaflet aortic valve. There is no aortic valve stenosis. There is no aortic valve regurgitation. Mitral Valve The mitral valve appears normal. There is trace mitral valve regurgitation. There is no mitral valve stenosis. Pulmonic Valve The pulmonic valve is likely normal. Tricuspid Valve Normal tricuspid valve structure. There is mild tricuspid valve regurgitation. Mild pulmonary hypertension is present. Great Vessels The asc aorta is normal in size. Venous The inferior vena cava is mildly dilated and collapses greater than 50% with inspiration. Pericardium/Pleural There is no evidence of pericardial effusion. Prior Study Comparison Changes noted compared to prior study dated: 09/16/2022. RVSP lower. Recommendations, Care & Conclusions No obvious valvular pathology seen on this study. Measurements 2D Linear Measurements IVSd: 0.79 0.6-0.9/0.6-1.0 cm LVIDd: 4.26 3.9-5.3/4.2-5.9 cm LVIDd Index: 2.43 2.4-3.2/2.2-3.1 cm/m2 LVIDs: 3.56 2.0-3.6 cm LVPWd: 0.76 0.7-1.1 cm LA Diam: 3.50 2.7-3.8/3.0-4.0 cm LAIDs Index: 2.00 1.5-2.3 cm/m2 LV Mass: 122.73 67-162/88-224 g LV Mass Index: 70.13 43-95/49-115 g/m2 LVOT Diam: 2.20 3.0+(-)1.3 cm 2D Systolic Function EF 4C: 37.30 >55% EF 2C: 30.50 >55% EF BiP: 33.10 >55% Mitral Valve MV Pk E: 0.62 Aortic Valve AoV Pk Sang: 0.90 AoV Pk Grad: 3.00 KWESI: 2.60 LVOT LVOT Pk Sang: 0.62 LVOT Mn Sang: 0.44 LVOT VTI: 0.08 LVOT Pk Grad: 2.00 LVOT Mn Grad: 1.00 LVOT Diam: 2.20 LVOT Area: 3.80 Diastolic Function MV Pk E: 0.62 Right Ventricle TVS' Sang: 8.16 Tricuspid Valve TR Pk Sang: 3.08 TR Pk Grad: 38.00 RA Press: 8.00 RVSP: 46.00 Great Vessels Aorta Sinus of Valsalva: 3.20 2.0-3.5 cm Ao Asc: 3.20 2.1-3.4 cm Pulmonary Valve PV Pk Sang: 0.88 Peak PV Grad: 3.00 Updated in Other Vendor System with Status of Final Walter Richardson MD electronically signed on 12/02/2023 7:36:51 AM with status of Final
--- NOTE | 2023-12-01 13:59 | HM_ITS ---
Conclusion: 1. Patient was monitored for total period of 3 days 2. Baseline was atrial fibrillation with average heart of 70 beats per minute good rate control 3. No significant pauses noted 4. Frequent wide complexes as well as wide complex run which could represent aberrant conduction 5. No patient reported symptoms MTDD
== END ==
LOC: HO.CARD 13:55
PROVIDERS: PCP Student in an Organized Health Care Education/Training Program; Visit Provider Nurse Practitioner Family
DX: I48.91 Unspecified atrial fibrillation (principal); I25.10 Atherosclerotic heart disease of native coronary artery without angina pectoris
CPT/HCPCS: 93242; 93306

== ENCOUNTER → 2023-12-01 13:59 | Outpatient (BNV) | payer MEDICARE, MEDICAID, SELFPAY | PROVIDERS: PCP Student in an Organized Health Care Education/Training Program; Visit Provider Internal Medicine | DX: I48.91 Unspecified atrial fibrillation (principal) | CPT/HCPCS: 93244; 93306 ==

== ENCOUNTER 2024-04-12 16:45 | Inpatient (IN) | payer MEDICARE, MEDICAID, SELFPAY ==
--- NOTE | 2024-04-12 | ECG_ITS ---
Test Reason : SOB Blood Pressure : / mmHG Vent. Rate : 061 BPM Atrial Rate : 000 BPM P-R Int : 000 ms QRS Dur : 090 ms QT Int : 392 ms P-R-T Axes : 000 092 -86 degrees QTc Int : 394 ms Very slow Afib with frequent PVCs Septal infarct , age undetermined ST & T wave abnormality, consider inferior ischemia Abnormal ECG When compared with ECG of 09-OCT-2022 09:40, Slow Afib with PVCs Referred By: Chuy Simeon Electronically Signed By:Luca Prado
--- NOTE | ~2024-04-12 | XR_ITS ---
EXAMINATION: XR CHEST CLINICAL INFORMATION: Left-sided thoracentesis. COMPARISON: Most recent ultrasound-guided thoracentesis done earlier the same day. CT chest dated 04/18/2024. TECHNIQUE: Frontal view of the chest was obtained. FINDINGS: Trace left-sided pleural effusion, decreased when compared to the prior examinations. No pneumothorax. Emphysematous changes and chronic interstitial prominence are redemonstrated. No new or increasing airspace consolidation. Stable cardiomediastinal silhouette. Sternal wires and mediastinal surgical clips are redemonstrated. XR/XR chest 1V IMPRESSION: Trace left-sided pleural effusion, decreased when compared to the prior examinations. No pneumothorax.
--- NOTE | ~2024-04-12 | XR_ITS ---
EXAMINATION: XR CHEST CLINICAL INFORMATION: Shortness of breath COMPARISON: 04/14/2024 TECHNIQUE: Frontal view of the chest was obtained. FINDINGS: Increasing infiltrate at the left base and retrocardiac area with left effusion. Lungs are hyperaerated. Other areas of chronic interstitial change particularly in the upper lungs and right perihilar and midlung are stable. Heart and pulmonary vessels are normal. Sternal wires present. XR/XR chest 1V IMPRESSION: Increasing left lower lobe consolidation speaks for pneumonia.
--- NOTE | ~2024-04-12 | US_ITS ---
PROCEDURE: Ultrasound-guided right thoracentesis History: Right pleural effusion Specimen: A sample of pleural fluid was sent for analysis Access: 5 Georgian Yueh catheter Medications: 10 mL 1% lidocaine TECHNIQUE/FINDINGS Appropriate preprocedural clinical history and imaging studies were reviewed. The patient was brought to the department and placed in the seated position. Ultrasound images of the left thorax were obtained to localize a moderate pleural effusion. Permanent ultrasound images were saved. Risks and benefits and possible complications were discussed with the patient and consent form was signed. An area of the patient's left back was prepped and draped in usual sterile fashion. 10 mL of 1% lidocaine was used to obtain local anesthesia of the skin and deeper tissues. A standard small bore needle was introduced to sample pleural fluid and demonstrate a safe access route. A 5 Georgian Yueh catheter was then used to access the pleural cavity. 600 ml of yellow fluid was removed passively. The catheter was then removed. A dressing was applied. A postprocedure chest x-ray will be performed and will be dictated separately. There were no immediate complications. The procedure was performed by Chuy Jackson PA-C and supervised by Dr. Echeverria US/US thoracentesis Impression: Ultrasound-guided left thoracentesis
--- NOTE | ~2024-04-12 | XR_ITS ---
EXAMINATION: XR CHEST CLINICAL INFORMATION: Hypoxia COMPARISON: Chest x-ray on 04/21/2024 TECHNIQUE: Frontal view of the chest was obtained. FINDINGS: There is hyperinflation and emphysematous disease. No pleural effusions or pneumothoraces. There is chronic interstitial disease, particularly of the left lung. XR/XR chest 1V IMPRESSION: No acute disease.
--- NOTE | ~2024-04-12 | CT_ITS ---
EXAMINATION: CT CHEST WITHOUT CONTRAST CLINICAL INFORMATION: Abnormal chest x-ray with increasing left lower lobe consolidation. COMPARISON: Chest radiograph 04/18/2024, CT chest 10/09/2022. TECHNIQUE: Multidetector volumetric CT imaging of the chest was done. Axial MIP volume rendering provided. Sagittal and coronal reformatted images were obtained. This CT examination was performed using dose optimization techniques as appropriate, variously including the following: *Automated exposure control *Adjustment of mA and/or kV according to patient size (this includes techniques or standardized protocols for targeted exams where dose is matched to indication/reason for exam; i.e. extremities or head) *Use of iterative reconstruction technique DLP: 111 mGy-cm FINDINGS: LUNGS AND PLEURA: There is a moderate-sized left pleural effusion present along with associated compressive atelectasis. There is a small right pleural effusion present. There are marked changes of emphysema seen throughout the lungs with a large right middle lobe bullous. Moderate bronchial thickening is present throughout. In the lingula and left lower lobe, there are new areas of interstitial infiltration compared to the prior CT. In the left lower lobe, multiple mucous plugged bronchi are present (for example 5:383). In the posterior left upper lobe, there is a new mass-like area seen with tenting of the major fissure measuring 1.9 x 1.4 x 1.3 cm (5:149 and 7:23). Some small surrounding densities are seen (for example 5:108) and differential diagnosis would include an area of consolidation versus a mass/neoplasm. Some scattered punctate granulomas are present. MEDIASTINUM: Heart size normal. No mediastinal or hilar lymphadenopathy. Patient status post median sternotomy and CABG. CORONARY ARTERY CALCIFICATION: Moderate. AXILLA: No lymphadenopathy. UPPER ABDOMEN: Unremarkable. OSSEOUS STRUCTURES: Unchanged compression fractures are seen in the thoracic and lumbar spine. Patient status post median sternotomy. CT/CT chest wo IV con IMPRESSION: 1. New moderate-sized left pleural effusion with associated compressive atelectasis. 2. New small right pleural effusion. 3. New areas of interstitial infiltration in the lingula and left lower lobe with areas of multiple mucous plugging in the left lower lobe. 4. New mass-like area in the posterior left upper lobe with tenting of the major fissure. Differential diagnosis would include a mass/neoplasm versus an area of consolidation. Short-term followup after treatment is recommended. 5. Marked emphysema with large right middle lobe bullous unchanged. 6. Other incidental findings as described above. Fleischner guidelines were followed.
--- NOTE | ~2024-04-12 | XR_ITS ---
EXAMINATION: XR CHEST CLINICAL INFORMATION: Tachypnea. Wheezing. Low oxygen saturation. COMPARISON: 04/12/2024 TECHNIQUE: Frontal view of the chest was obtained. FINDINGS: The cardiomediastinal silhouette is stable. There has been a previous median sternotomy. The lung becerril are hyperinflated. There is lingular increased markings/minimal infiltrative change. There are significant pleural effusions. The bony structures are osteopenic. The soft tissues are unremarkable. XR/XR chest 1V IMPRESSION: 1. Lingular increased markings/minimal infiltrative change. A developing infiltrate is considered. 2. Emphysema. 3. No significant pleural effusions.
--- NOTE | ~2024-04-12 | CT_ITS ---
EXAMINATION: CT HEAD W/O IV CONTRAST CT CERVICAL SPINE W/O IV CONTRAST CLINICAL INFORMATION: History of fall. COMPARISON: 03/18/2020 TECHNIQUE: Head - Contiguous axial imaging of the head was performed from the skull base to the vertex without the administration of intravenous contrast, and axial images are reconstructed at 0.6 mm, 2 mm and 5 mm slice thickness. Cervical spine - A volumetric, helical CT acquisition of the cervical spine was obtained without contrast; in addition to the standard set of axial images, multiplanar reformatted images were provided in the coronal and sagittal imaging planes. This CT examination was performed using dose optimization techniques as appropriate, variously including the following: *Automated exposure control *Adjustment of mA and/or kV according to patient size (this includes techniques or standardized protocols for targeted exams where dose is matched to indication/reason for exam; i.e. extremities or head) *Use of iterative reconstruction technique DLP: 977 mGy-cm (total) FINDINGS: HEAD: No acute intracranial findings. Howard to white matter differentiation is preserved. No evidence of intracranial hemorrhage, major vascular territory infarction, focal mass effect or midline shift. There is atherosclerotic calcification of cavernous carotid arteries. The small subtle foci of decreased attenuation within deep white matter are compatible with sequela of chronic mild microangiopathy. Mild parenchymal volume loss with commensurate prominence of ventricles and sulci. No hydrocephalus or extra-axial fluid collections. The calvarium is intact. Small amount mucus is present along the posterior wall of the right sphenoid sinus. Otherwise, the paranasal sinuses and mastoid air cells are well aerated. Prior ocular lens extractions. The orbits are intact. There is mild osteoarthrosis of temporomandibular joints. CERVICAL SPINE: No acute abnormalities compared to 03/18/2020. The occipital condyles, dens and atlantodental articulation are intact. There is osteophyte formation at the left atlantooccipital articulation. Also, there is chronic left-sided osteoarthritis at the articulation between the lateral masses of C1 and C2. A chronic mild deformity of the dens is possibly from a remote healed fracture. No acute dens injury. There is multilevel facet arthropathy and disc degenerative change of the cervical spine. The evaluation of the spine is partially limited by mild patient motion. The degenerative disc disease is severe at C3-C4, mild at C4-C5 and moderate at C5-C6. The vertebral body heights and alignment are maintained. No acute fracture, traumatic subluxation or prevertebral edema. Posterior disc-osteophyte complexes at C3-C4 and C5-C6 appear to cause mild spinal canal stenosis. The multilevel uncovertebral joint hypertrophy and facet arthropathy cause varying degrees of chronic multilevel bilateral neural foraminal stenosis. There is severe centrilobular emphysema of the visualized upper lobes. No pneumothorax. Thyroid gland is atrophied and otherwise unremarkable. There is atherosclerotic calcification of the carotid bulbs and proximal ICAs. CT/CT cervical spine wo IV con IMPRESSION: * No intracranial hemorrhage or other acute intracranial pathology compared to 03/18/2020. * No fracture or traumatic subluxation in the chronically degenerated cervical spine. * Severe pulmonary emphysema of the visualized upper lobes.
--- NOTE | ~2024-04-12 | XR_ITS ---
EXAMINATION: PORTABLE CHEST 1 VIEW CLINICAL INFORMATION: syncope. COMPARISON: . TECHNIQUE: Portable frontal view of the chest was obtained. FINDINGS: The lungs are well expanded. Chronic reticular markings are seen with peribronchial cuffing again noted bilaterally. There is central vascular prominence likely reflecting a component of underlying pulmonary arterial hypertension. No focal infiltrate, effusion, overt edema, or pneumothorax. Cardiac and mediastinal silhouettes are within normal limits for size. Patient status post sternotomy and CABG. Vascular calculation in aorta. No acute bony abnormality seen. XR/XR chest 1V IMPRESSION: Chronic appearing and postoperative changes. Central vascular prominence likely reflecting a component of underlying pulmonary arterial hypertension.
[2024-04-12 16:56] VITALS: PULSE 45; O2SAT 93
[2024-04-12 16:57] VITALS: BP 112/58; PULSE 65; RESP 18; TEMP 36.6; O2SAT 94; BMI 14.3
[2024-04-12] MEDS: 0.9 % Sodium Chloride 1,000 ML 999 ML IV (17:33)
[2024-04-12 17:59] LABS: MANUAL DIFF FLAG NO
[2024-04-12 18:00] VITALS: PULSE 50; RESP 18; O2SAT 94
[2024-04-12 18:09] LABS: Basophils Absolute Auto 0.1 X10*3/uL (0.0-0.2); Basophils Percent Auto 1.1 % (0-2); Eosinophils Absolute Auto 0.1 X10*3/uL (0.0-0.4); Eosinophils Percent Auto 0.9 % (0-4); Hematocrit 38.6 % (42.0-52.0); Hemoglobin 13.2 g/dl (14.0-18.0); Imm Gran Abs Auto 0.07 X10*3/uL (0.00-0.03); Imm Gran Pct Auto 0.7 % (0.0-0.4); Lymphocytes Absolute Auto 1.1 X10*3/uL (1.2-4.9); Lymphocytes Percent Auto 11.4 % (20-40); Mean Corpuscular HGB Conc 34.2 g/dl (31.0-36.0); Mean Corpuscular Hemoglobin 33.6 pg (27.0-33.0); Mean Corpuscular Volume 98.2 fL (80.0-98.0); Mean Platelet Volume 9.8 fL (9.4-12.4); Monocytes Absolute Auto 1.1 X10*3/uL (0.1-1.2); Monocytes Percent Auto 11.8 % (2-11); Neutrophils Absolute Auto 7.1 x10*3/uL (2.0-8.3); Neutrophils Percent Auto 74.1 % (45-73); Platelet Count 427 X10*3/uL (160-400); Red Blood Count 3.93 X10*6/uL (4.60-5.80); White Blood Count 9.6 X10*3/uL (4.8-10.8)
[2024-04-12 18:14] LABS: INTERNATIONAL NORM RATIO 1.4 (0.9-1.1); Prothrombin Time 16.5 SEC (11.1-13.3)
[2024-04-12 18:16] LABS: Digoxin 1.7 ng/mL (0.8-2.0)
[2024-04-12 18:18] LABS: Alanine Aminotransferase 5 U/L (0-40); Albumin Level 3.2 g/dL (3.5-5.0); Alkaline Phosphatase 100 U/L (39-117); Anion Gap 17 (12-20); Aspartate Amino Transferase 18 U/L (5-37); Blood Urea Nitrogen 26 mg/dL (9-16); Carbon Dioxide 25 mmol/L (22-29); Chloride 103 mmol/L (96-108); Creatinine Clr Calc Pharmacy 33.4; Estimated Glomerular Filt Rate 52; Ethanol 42 mg/dL; Glucose Random 84 mg/dL (60-115); Lipase < 4 U/L (8-78); Magnesium 1.5 mg/dL (1.6-2.6); Potassium 3.6 mmol/L (3.3-5.1); Sodium 141 mmol/L (135-145); Total Protein 6.5 g/dL (6.5-8.0)
[2024-04-12 18:20] LABS: B Type Natriuretic Peptide 555 pg/mL (<100)
--- NOTE | 2024-04-12 18:22 | ED.GENADULT ---
HPI - General Adult General Chief complaint: Syncope Stated complaint: lethargy , syncopal episode Time Seen by Provider: 04/12/24 16:49 Source: patient, RN notes reviewed and old records reviewed Mode of arrival: EMS Limitations: no limitations History of Present Illness ED Provider: Blanco HPI narrative: 68-year-old male past medical history significant for coronary artery disease, atrial fibrillation, COPD, alcohol abuse presents for evaluation of a reported syncopal episode Patient states ?I just laid down. ? He is unsure if he passed out but believes he did fall to the ground He denies any pain outside of chronic back pain Denies any chest pain or shortness of breath The patient does not know which medications he takes He reports that he is on oxygen p.r.n. at home and feels slightly short of breath today Denies any leg swelling He has no other complaints or concerns Denies any recent travel, fevers, chills, sick contacts Denies any abdominal pain, nausea, vomiting Related Data Home Medications ?Medication ?Instructions ?Recorded ?Confirmed aspirin 81 mg tablet,delayed 81 mg PO DAILY 08/12/20 10/22/23 release thiamine HCl (vitamin B1) 100 mg 100 mg PO DAILY 11/05/20 04/12/23 tablet (Vitamin B-1) cholecalciferol (vitamin D3) 25 25 mcg PO DAILY 11/07/20 04/12/23 mcg (1,000 unit) capsule (Vitamin D3) folic acid 1 mg tablet 1 mg PO DAILY 11/07/20 04/12/23 Previous Rx's ?Medication ?Instructions ?Recorded furosemide 20 mg tablet 20 mg PO DAILY PRN for edema #90 05/07/23 tabs digoxin 125 mcg (0.125 mg) tablet 125 mcg PO DAILY #90 tabs 10/25/23 metoprolol tartrate 100 mg tablet 100 mg PO BID #225 tabs 10/25/23 albuterol sulfate 90 mcg/actuation 2 puff inhalation Q4-6H PRN 11/09/23 aerosol inhaler shortness of breath or wheezing 30 days #8.5 grams atorvastatin 20 mg tablet 20 mg PO DAILY #90 tabs 01/10/24 Breo Ellipta 200 mcg-25 mcg/dose 1 inh inhalation Q24H SEVERE copd 04/07/24 powder for inhalation (fluticasone 30 days #60 ea furoate-vilanterol) Allergies Allergy/AdvReac Type Severity Reaction Status Date / Time No Known Allergies Allergy Verified 04/12/24 16:59 [No Known Allergies*] Review of Systems Constitutional: Constitutional: Denies body ache(s), Denies chills, Denies fever(s), Denies headache(s) and Reports weakness Eyes: Eyes: Denies blurry vision ENT: Denies headache(s) and Denies sore throat Cardiovascular: Cardiovascular: Denies chest pain, Reports syncope, Reports leg edema and Reports dyspnea Respiratory: Respiratory: Reports cough and Reports dyspnea Gastrointestinal: Gastrointestinal: Denies abdominal pain, Denies nausea and Denies vomiting Genitourinary: Genitourinary: Denies dysuria Musculoskeletal: Musculoskeletal: Reports back pain Integumentary/Breasts: Skin/Breast: Denies rash Neurologic: Reports syncope, Denies headache(s) and Reports weakness PMFSH Past Medical History Medical History Respiratory failure with hypoxia History of [place] (myocardial infarction) History of seizure due to alcohol withdrawal Atrial fibrillation with slow ventricular response Hypoxemia CAP (community acquired pneumonia) Chronic respiratory failure Atherosclerotic cardiovascular disease CHF (congestive heart failure) CAD (coronary artery disease) History of ischemic cardiomyopathy Tobacco abuse Alcohol abuse Hypercholesteremia COPD (chronic obstructive pulmonary disease) Surgical History History of coronary artery bypass graft x 3 (~2013) History of surgery on lower extremity (~2018) Social History Social History Household Members: Family Household Members Other:: CHILDREN,GRANDCHILDREN Housing: House Do you presently have visiting nurse or other home services: No Alcohol intake: current Alcohol intake frequency: 0-2 drinks per day Alcohol type: hard liquor Patient Tobacco Use Status: Current everyday Tobacco user Tobacco use type: Cigarette Cigarette Packs Per Day: 0.5 Cigarettes Per Day: 10 Years Smoked: 40+ Smoked in Last 30 Days: No e-Cigarette/Vaping Use: Never Used Second Hand Smoke Exposure: No Use of substances other than those prescribed or required for medical reasons: No Advance Directives: Yes Advance Directives on File: Yes Advance Directives Date on File: 11/08/20 service: No Current occupational status: retired Physical Exam ED Vital Signs: Vital Signs - 24 hr 04/12/24 16:57 04/12/24 18:00 04/12/24 19:27 Temperature 97.8 F Pulse Rate 65 50 42 L Respiratory Rate 18 18 16 Blood Pressure 112/58 L 107/59 L Pulse Oximetry 94 94 Oxygen Delivery Method Room Air Nasal Cannula Room Air Oxygen Flow Rate 2 04/12/24 19:31 Temperature 98.1 F Pulse Rate 42 L Respiratory Rate 14 Blood Pressure 103/53 L Pulse Oximetry 93 Oxygen Delivery Method Nasal Cannula Oxygen Flow Rate 2 BMI result Body Mass Index 14.3 Const General: healthy appearing, comfortable, no acute distress, alert and awake Nutritional Appearance: well nourished Orientation/consciousness: patient oriented x3 HENMT Head: Yes normocephalic and Yes atraumatic Eyes Eyelids: Yes eyelids normal Conjunctivae: conjunctivae normal Sclerae: sclerae normal Corneas: corneas normal Pupils: Equal, round and reactive pupils present EOM: EOMs intact bilaterally Neck Neck: Yes full ROM Resp Other: Diminished breath sounds but otherwise clear Effort & Inspection: normal respiratory effort, able to speak in complete sentences and not labored Cardio Other: No lower extremity edema Rate: bradycardic Rhythm: regular rhythm GI Inspection: No distended Palpation (GI): Soft to palpation, not firm, nontender, no guarding and not rigid Skin General skin exam: elasticity normal Neuro General: patient oriented x3 Cranial nerves: Yes Equal, round and reactive pupils present and Yes Bilaterally intact EOM present Cognition (Neuro): normal cognition Extrem Other: Moving all extremities well without any obvious deformities Course Reevaluation(s) Reevaluation #1: Patient has and bradycardia in the 40s to 50s throughout his stay. He is mildly hypotensive but is maintaining appropriately. Unclear etiology of his bradycardia at this time. There does not appear to be any metabolic cause based in his last. The patient is likely slightly hypovolemic given his elevated BUN and creatinine compared to baseline. He was treated with IV fluids. Repeat EKG remains unchanged, it is read as of in [place] is 67 beats minute, but it is likely due to the bigeminy pattern. I do not see clear P waves in each QRS complex. Will discuss with the hospitalist for admission due to syncope and Crow arrhythmia Time: 19:50 Medications Administered Discontinued Medications Generic Name Dose Route Start Last Admin Trade Name Damionq PRN Reason Stop Dose Admin Sodium Chloride 1,000 mls @ 999 mls/hr 04/12/24 17:30 04/12/24 18:40 Ns IV 04/12/24 18:30 Infused .Q1H1M JASPAL Infusion Medical Decision Making Medical Decision Making [facility] Narrative: 68-year-old male past medical history as documented above presents for evaluation or a apparent syncopal episode. He was found on the ground by his son at home. The patient was written a bradycardic. His EKG shows a bigeminy pattern with several PVCs. The patient denies any chest pain. His blood pressure was in the lower side and this was treated with IV fluids as he has no evidence of overt heart failure at this time. Plan for broad workup including drug screen, alcohol level, digoxin level as the patient has been taking in the past. He has very vague complaints but likely a syncopal episode. Plan for CT scan of the brain and C-spine. Differential Diagnosis Differential Diagnoses: The differential diagnosis associated with the presentation includes Syncope Digoxin toxicity Bradycardia Atrioventricular heart block Dehydration Heart failure PE less likely COPD exacerbation Admission/Observation Consideration of admission/observation: Escalation of care including admission/observation considered Patient will be admitted due to syncope with bradyarrhythmia Consult Healthcare Provider Management of the patient was discussed with: Auth Specialist Discussed with Cardiology, Dr Prado who recommends holding digoxin and admitting to telemetry Lab Data [facility] Lab Attestation statement: I reviewed the patient's lab results. No leukocytosis. The patient has a history of anemia with a hemoglobin today of 13.2 hematocrit 38.6 which is at or above his baseline which appears to be around 12-13. Patient's chemistries are reassuring. Electrolytes within normal limits, his BUN is elevated 26 with a creatinine of 1.37 these are both slightly above his baseline and is being treated with IV fluids. Calcium levels as below normal magnesium is low CK is only 27 indicated the patient did not have a prolonged down. . His BNP is elevated to 555 which is at or below his baseline BNP. Troponin is 26.4 and will be repeated. The patient does not have any chest pain 04/12/24 17:53 04/12/24 17:53 Labs: Lab Results 04/12/24 Range/Units 17:53 WBC 9.6 (4.8-10.8) X10*3/uL RBC 3.93 L (4.60-5.80) X10*6/uL Hgb 13.2 L (14.0-18.0) g/dl Hct 38.6 L (42.0-52.0) % MCV 98.2 H (80.0-98.0) fL MCH 33.6 H (27.0-33.0) pg MCHC 34.2 (31.0-36.0) g/dl RDW 14.0 (11.0-16.0) % Plt Count 427 H D (160-400) X10*3/uL MPV 9.8 (9.4-12.4) fL Immature Gran % (Auto) 0.7 H (0.0-0.4) % Neut % (Auto) 74.1 H (45-73) % Lymph % (Auto) 11.4 L (20-40) % Noble % (Auto) 11.8 H (2-11) % Eos % (Auto) 0.9 (0-4) % Baso % (Auto) 1.1 (0-2) % Lymph # (Auto) 1.1 L (1.2-4.9) X10*3/uL Noble # (Auto) 1.1 (0.1-1.2) X10*3/uL Eos # (Auto) 0.1 (0.0-0.4) X10*3/uL Baso # (Auto) 0.1 (0.0-0.2) X10*3/uL Abs Immat Gran (auto) 0.07 H (0.00-0.03) X10*3/uL Absolute Neuts (auto) 7.1 (2.0-8.3) x10*3/uL Absolute Nucleated RBC 0.000 (0.0-0.012) X10*3/uL Nucleated RBC % (auto) 0.0 (0.0-0.2) /100WBC PT 16.5 H (11.1-13.3) SEC INR 1.4 H (0.9-1.1) Sodium 141 (135-145) mmol/L Potassium 3.6 (3.3-5.1) mmol/L Chloride 103 (96-108) mmol/L Carbon Dioxide 25 (22-29) mmol/L Anion Gap 17 (12-20) BUN 26 H (9-16) mg/dL Creatinine 1.37 (0.5-1.4) mg/dL Estim Creat Clear Calc 33.4 Estimated GFR 52 Random Glucose 84 (60-115) mg/dL Calcium 8.0 L D (8.4-10.2) mg/dL Magnesium 1.5 L (1.6-2.6) mg/dL Total Bilirubin 1.0 (0.0-1.0) mg/dL AST 18 (5-37) U/L ALT 5 (0-40) U/L Alkaline Phosphatase 100 (39-117) U/L Total Creatine Kinase 27 L (38-174) U/L Troponin I High Sens 26.4 D (<3.5-35.0) ng/L B-Natriuretic Peptide 555 H (<100) pg/mL Total Protein 6.5 (6.5-8.0) g/dL Albumin 3.2 L (3.5-5.0) g/dL Lipase < 4 L (8-78) U/L Digoxin 1.7 (0.8-2.0) ng/mL Ethyl Alcohol 42 mg/dL Influenza Type A (PCR) NEGATIVE (Negative) Influenza Type B (PCR) NEGATIVE (Negative) RSV RNA Qual (PCR) NEGATIVE (Negative) SARS-CoV-2 RNA (RT-PCR) NEGATIVE (Negative) Discharge Plan Discharge Clinical Impression: Syncope, Bradyarrhythmia Patient Disposition: Admitted As Inpatient Print Language: Syriac
[2024-04-12 18:23] LABS: Troponin-I High Sensitivity 26.4 ng/L (<3.5-35.0)
[2024-04-12 18:41] LABS: Influenza A PCR NEGATIVE (Negative); Influenza B PCR NEGATIVE (Negative); Resp Syncy Virus RNA Qual PCR NEGATIVE (Negative); SARS COV2 PCR INHOUSE NEGATIVE (Negative)
[2024-04-12 19:27] VITALS: BP 107/59; PULSE 42; RESP 16
[2024-04-12 19:31] VITALS: BP 103/53; PULSE 42; RESP 14; TEMP 36.7; O2SAT 93
--- NOTE | 2024-04-12 19:35 | ECG_ITS ---
Test Reason : rhythm change Blood Pressure : / mmHG Vent. Rate : 067 BPM Atrial Rate : 067 BPM P-R Int : 000 ms QRS Dur : 086 ms QT Int : 408 ms P-R-T Axes : 000 090 -68 degrees QTc Int : 431 ms Afib with PVCs Rightward axis Septal infarct (cited on or before 12-APR-2024) ST & T wave abnormality, consider inferior ischemia Abnormal ECG When compared with ECG of 12-APR-2024 17:00, No significant changes seen Referred By: Chuy Simeon Electronically Signed By:Luca Prado
--- NOTE | 2024-04-12 20:21 | PC.NURSE ---
Pts daughter updated on plan o care
--- NOTE | 2024-04-12 20:23 | PHA.MEDREC ---
Pharmacy Consult ? Medication Reconciliation Pharmacy has completed the medication reconciliation.
[2024-04-12 20:25] LABS: Troponin-I High Sensitivity 26.7 ng/L (<3.5-35.0)
--- NOTE | 2024-04-12 20:43 | P.HPHOSP_ITS ---
History of Present Illness Date of Service: 04/12/24 Attending physician on admission: Moris Castro Chief Complaint: Loss of consciousness Noble Valencia is a 68 years old man with past medical history significant for HFrEF (30-35%) on digoxin, CAD, ongoing alcohol abuse, atrial fibrillation and COPD was brought to the ED via EMS after his was found on the floor unresponsive between 3-4 PM. Patient is a vague historian he does remember what happened. He denied palpitations, chest pain, fever, chills. dizziness or shortness on breath. He denied any acute gastrointestinal or genitourinary symptoms. He does have chronic back pain. Denied edema to the lower extremities. He has an ongoing alcohol abuse or and unable to tell me how many drinks he drinks daily. He smoke tobacco and denied illicit drug use. In the ED, he was found to have blood pressure 112/58 and intermittent bradycardia with bigeminy. Oxygen saturation is normal on room air are there is no fever. Blood workup showed no leukocytosis. Hemoglobin is 13.2 and platelets 427. INR is 1.4. There is magnesemia of 1.5 but no other significant electrolyte imbalances. BUN is 26 and creatinine 1.37 (prior was 0.84). LFTs are normal. BUN is 555 (similar to prior). Digoxin level is 1.7 (therapeutic). Ethanol level is 42. Viral testing for COVID-19, influenza and RSV is negative. Head and C-spine CT scans are unremarkable. CXR is negative for acute abnormalities. ECG showed multiple PVCs and a heart rate of 67 beats per minute. ED tx: NS 1 L bolus. Magnesium 2 g IV. Review of Systems 2 Review of Systems: Limited -pt is poor historian. [facility] Medical History Respiratory failure with hypoxia History of NV (myocardial infarction) History of seizure due to alcohol withdrawal Atrial fibrillation with slow ventricular response Hypoxemia CAP (community acquired pneumonia) Chronic respiratory failure Atherosclerotic cardiovascular disease CHF (congestive heart failure) CAD (coronary artery disease) History of ischemic cardiomyopathy Tobacco abuse Alcohol abuse Hypercholesteremia COPD (chronic obstructive pulmonary disease) Surgical History History of coronary artery bypass graft x 3 (~2012) History of surgery on lower extremity (~2018) Social History Household Members: Family Household Members Other:: CHILDREN,GRANDCHILDREN Housing: House Do you presently have visiting nurse or other home services: No Alcohol intake: current Alcohol intake frequency: 0-2 drinks per day Alcohol type: hard liquor Patient Tobacco Use Status: Current everyday Tobacco user Tobacco use type: Cigarette Cigarette Packs Per Day: 0.5 Cigarettes Per Day: 10 Years Smoked: 40+ Smoked in Last 30 Days: No e-Cigarette/Vaping Use: Never Used Second Hand Smoke Exposure: No Use of substances other than those prescribed or required for medical reasons: No Advance Directives: Yes Advance Directives on File: Yes Advance Directives Date on File: 11/08/20 service: No Current occupational status: retired [employer] Allergies Allergy/AdvReac Type Severity Reaction Status Date / Time No Known Allergies Allergy Verified 04/12/24 16:59 [No Known Allergies*] Active Medications: Current Medications Acetaminophen (Acetaminophen 325 Mg Tablet) 975 mg PO Q6H PRN PRN Reason: Pain, Mild (Pain Scale 1-3), fever or headache Heparin Sodium (Porcine) (Heparin Sodium,Porcine 5,000 Unit/Ml Vial) 5,000 unit SUBCUT Q8H [facility] Magnesium Sulfate (Magnesium Sulfate/H2o) 2 gm in 50 mls @ 25 mls/hr IV ONCE ONE Stop: 04/12/24 22:15 Thiamine HCl 100 mg/ Sodium (Chloride) 101 mls @ 202 mls/hr IV DAILY [facility] Sodium Chloride (0.9 % Sodium Chloride Flush 3 Ml Syringe) 3 ml IVFLUSH QSHIFT [facility] Home Medications ?Medication ?Instructions ?Recorded ?Confirmed ?Last Taken ?Type aspirin 81 mg tablet,delayed 81 mg PO DAILY 08/12/20 04/12/24 04/12/24 History release thiamine HCl (vitamin B1) 100 mg 100 mg PO DAILY 11/05/20 04/12/24 04/12/24 History tablet (Vitamin B-1) cholecalciferol (vitamin D3) 25 25 mcg PO DAILY 11/07/20 04/12/24 04/12/24 History mcg (1,000 unit) capsule (Vitamin D3) Physical Exam 2 Vital Signs and Narrative: Vital Signs: Last Vital Signs Temp 98.1 F 04/12/24 19:31 Pulse 42 L 04/12/24 19:31 Resp 14 04/12/24 19:31 BP 103/53 L 04/12/24 19:31 Pulse Ox 93 04/12/24 19:31 O2 Del Method Nasal Cannula 04/12/24 19:31 O2 Flow Rate 2 04/12/24 19:31 BMI result Body Mass Index 14.3 Constitutional - Awake and Alert, No apparent distress. Cachectic. Disheveled. Cooperative. HEENT - PERRL, EOMI. Dry oral mucosa. Normal sclerae. Heart - Irregular rhythm. Normal rate. Lungs - Normal lung expansion, Normal respiratory effort, No respiratory distress, CTA bilaterally Abdomen - NT / ND; +BS; No rebound or guarding Extremities - no calf tenderness bilaterally, no swelling Musculoskeletal - generalized atrophy. Skin - Warm/Dry Neurological - Alert & oriented x3. No focal weakness grossly noted. No asterixis. Normal speech. Psychological - Depressed affect Results Labs 04/12/24 17:53 04/12/24 17:53 Labs: Laboratory Results - last 24 hr 04/12/24 04/12/24 17:53 19:59 MCV 98.2 H MCH 33.6 H MCHC 34.2 RDW 14.0 Plt Count 427 H D MPV 9.8 Immature Gran % (Auto) 0.7 H Neut % (Auto) 74.1 H Lymph % (Auto) 11.4 L [place] % (Auto) 11.8 H Eos % (Auto) 0.9 Baso % (Auto) 1.1 Lymph # (Auto) 1.1 L [place] # (Auto) 1.1 Eos # (Auto) 0.1 Baso # (Auto) 0.1 Abs Immat Gran (auto) 0.07 H Absolute Neuts (auto) 7.1 Absolute Nucleated RBC 0.000 Nucleated RBC % (auto) 0.0 PT 16.5 H INR 1.4 H Anion Gap 17 Estim Creat Clear Calc 33.4 Estimated GFR 52 Random Glucose 84 Calcium 8.0 L D Magnesium 1.5 L Total Bilirubin 1.0 AST 18 ALT 5 Alkaline Phosphatase 100 Total Creatine Kinase 27 L Troponin I High Sens 26.4 D 26.7 B-Natriuretic Peptide 555 H Total Protein 6.5 Albumin 3.2 L Lipase < 4 L Digoxin 1.7 Ethyl Alcohol 42 Influenza Type A (PCR) NEGATIVE Influenza Type B (PCR) NEGATIVE RSV RNA Qual (PCR) NEGATIVE SARS-CoV-2 RNA (RT-PCR) NEGATIVE Imaging Radiologist's Impressions: Impressions Chest X-Ray 04/12/24 17:40 IMPRESSION: Chronic appearing and postoperative changes. Central vascular prominence likely reflecting a component of underlying pulmonary arterial hypertension. Cervical Spine CT 04/12/24 18:23 IMPRESSION: * No intracranial hemorrhage or other acute intracranial pathology compared to 03/18/2020. * No fracture or traumatic subluxation in the chronically degenerated cervical spine. * Severe pulmonary emphysema of the visualized upper lobes. Head CT 04/12/24 18:23 IMPRESSION: * No intracranial hemorrhage or other acute intracranial pathology compared to 03/18/2020. * No fracture or traumatic subluxation in the chronically degenerated cervical spine. * Severe pulmonary emphysema of the visualized upper lobes. Assessment and Plan (1) Bradyarrhythmia: Status: Acute (2) Syncope: Qualifiers: Syncope type: unspecified Qualified Code(s): R55 - Syncope and collapse Status: Acute (3) TYESHA (acute kidney injury): Status: Acute Plan Noble Valencia is a 68 y/o man admitted with: * Syncope + bigeminy/multiple PVCs + bradycardia. Concerning for cardiac in nature. Admit to hospitalist service. Telemetry. Hold digoxin and metoprolol. Check TTE. Cardiology consult. * Hypomagnesemia. Replete as needed. Continue to monitor magnesium closely. * TYESHA. Possible poor p.o. intake + diuretic use + alcohol use. IV fluids given in ED. Continue to monitor renal function.. * HFrEF (30-35%). No evidence of decompensation. Furosemide on hold due to TYESHA. * CAD. No chest pain. Continue aspirin and statin. * Atrial fibrillation. Telemetry. Digoxin and metoprolol on hold. Continue aspirin. Not on anticoagulation. * Vitamin-D deficiency. Continue vitamin-D supplementation. * Alcohol abuse. CIWA. Thiamine, folic acid and multivitamins. Phenobarbital protocol as needed. * COPD. No acute symptoms reported. Supplemental oxygen as needed. Continue home inhalers. * Protein calorie malnutrition. BMI 14.3 kg/m2. Dietary consult. Code status: Full DVT prophylaxis: Heparin Patient will need hospitalization for at least 2 midnights for syncope and hypomagnesemia treatment with continuous cardiac monitoring, magnesium supplementation and close vital signs monitoring as well as subspecialty evaluation. Quality Stroke Does the patient have a stroke diagnosis?: No VTE Prior VTE?: No VTE Risk Level:: Medical - moderate - high VTE Device Contraindication: Treatment Not Indicated VTE Drug Contraindication: N/A - Med Ordered
[2024-04-12] MEDS: Thiamine HCL 100 MG in 0.9 % Sodium Chloride 100 ML 202 MG IV (21:15)
[2024-04-12] MEDS: Magnesium Sulfate/H2O 2 GM/50 ML PIGGYBACK IV (21:18)
[2024-04-12 22:38] VITALS: BP 102/51; PULSE 49; RESP 17; TEMP 36.7; O2SAT 92
[2024-04-13] VITALS (11 sets, daily range): BP systolic 97–132; BP diastolic 51–81; PULSE 37–91; RESP 12–19; TEMP 36–36.7; O2SAT 92–97; BMI 15.6
[2024-04-13 01:31] LABS: Magnesium 2.2 mg/dL (1.6-2.6)
[2024-04-13] MEDS: 0.9 % Sodium Chloride Flush 3 ML SYRINGE IVFLUSH ×3 (02:02→17:11)
[2024-04-13 05:25] LABS: MANUAL DIFF FLAG NO
[2024-04-13 05:28] LABS: Basophils Absolute Auto 0.1 X10*3/uL (0.0-0.2); Eosinophils Absolute Auto 0.2 X10*3/uL (0.0-0.4); Eosinophils Percent Auto 1.8 % (0-4); Hematocrit 36.9 % (42.0-52.0); Hemoglobin 12.6 g/dl (14.0-18.0); Imm Gran Abs Auto 0.09 X10*3/uL (0.00-0.03); Imm Gran Pct Auto 0.9 % (0.0-0.4); Lymphocytes Absolute Auto 1.2 X10*3/uL (1.2-4.9); Lymphocytes Percent Auto 11.6 % (20-40); Mean Corpuscular HGB Conc 34.1 g/dl (31.0-36.0); Mean Corpuscular Hemoglobin 33.6 pg (27.0-33.0); Mean Corpuscular Volume 98.4 fL (80.0-98.0); Mean Platelet Volume 9.8 fL (9.4-12.4); Monocytes Absolute Auto 1.5 X10*3/uL (0.1-1.2); Monocytes Percent Auto 13.9 % (2-11); Neutrophils Absolute Auto 7.4 x10*3/uL (2.0-8.3); Neutrophils Percent Auto 70.8 % (45-73); Platelet Count 398 X10*3/uL (160-400); Red Blood Count 3.75 X10*6/uL (4.60-5.80); Red Cell Distribution Width 14.1 % (11.0-16.0); White Blood Count 10.5 X10*3/uL (4.8-10.8)
[2024-04-13 05:46] LABS: Alanine Aminotransferase 6 U/L (0-40); Albumin Level 3.1 g/dL (3.5-5.0); Alkaline Phosphatase 102 U/L (39-117); Anion Gap 14 (12-20); Aspartate Amino Transferase 14 U/L (5-37); Bilirubin Total 1.3 mg/dL (0.0-1.0); Blood Urea Nitrogen 25 mg/dL (9-16); Calcium 8.1 mg/dL (8.4-10.2); Carbon Dioxide 25 mmol/L (22-29); Chloride 104 mmol/L (96-108); Estimated Glomerular Filt Rate > 60; Glucose Random 71 mg/dL (60-115); Magnesium 2.2 mg/dL (1.6-2.6); Potassium 2.6 mmol/L (3.3-5.1); Sodium 140 mmol/L (135-145); Total Protein 6.1 g/dL (6.5-8.0)
--- NOTE | 2024-04-13 07:00 | CA_ITS ---
Transthoracic Echocardiogram Patient (Last, First, Middle): Noble Valencia F Gender: Male Date of : 1955 Age: 68 Procedure Date: 04/13/2024 Procedure Type: Transthoracic Echocardiogram Location: ER Height: 177.8 cm Weight: 44.91 kg BSA: 1.55 m2 Heart Rate: bpm BP: 108 / 67 mmHg Tank Processor: ESTELA Referring MD: Moris Castro MD Symptoms: Syncope Study Quality: Technically Difficult Conclusions: - Normal left ventricular size, thickness, and systolic function. The visually estimated ejection fraction is between 55-60%. - Mildly increased right ventricular cavity size. There is mild to moderately decreased right ventricular systolic function. - There is moderate tricuspid valve regurgitation. Moderately elevated right atrial pressure. Moderate pulmonary hypertension is present. Findings Left Ventricle Normal left ventricular size, thickness, and systolic function. The visually estimated ejection fraction is between 55-60%. Regional wall motion abnormalities can not be excluded due to suboptimal endocardial definition. Diastolic function is indeterminate on the basis of available data. Right Ventricle Mildly increased right ventricular cavity size. There is mild to moderately decreased right ventricular systolic function. Atria The left atrium is mildly dilated. The right atrium is mildly dilated. Aortic Valve There is a normal trileaflet aortic valve. There is no aortic valve stenosis. There is no aortic valve regurgitation. Mitral Valve The mitral valve appears normal. There is no mitral valve regurgitation. There is no mitral valve stenosis. Pulmonic Valve The pulmonic valve is likely normal. Tricuspid Valve Normal tricuspid valve structure. There is moderate tricuspid valve regurgitation. Moderately elevated right atrial pressure. Moderate pulmonary hypertension is present. Great Vessels All visible segments of the aorta are normal in size. Venous The inferior vena cava is dilated and collapses greater than 50% with inspiration. Pericardium/Pleural There is no evidence of pericardial effusion. Prior Study Comparison Changes noted compared to prior study dated: 12/01/2023. EF 55 to 60, RV mildly dilated with mild to moderate dysfunction. Measurements 2D Linear Measurements IVSd: 0.98 0.6-0.9/0.6-1.0 cm LVIDd: 4.55 3.9-5.3/4.2-5.9 cm LVIDd Index: 2.94 2.4-3.2/2.2-3.1 cm/m2 LVIDs: 3.18 2.0-3.6 cm LVPWd: 1.00 0.7-1.1 cm LA Diam: 3.30 2.7-3.8/3.0-4.0 cm LAIDs Index: 2.13 1.5-2.3 cm/m2 LV Mass: 191.22 67-162/88-224 g LV Mass Index: 123.37 43-95/49-115 g/m2 LVOT Diam: 2.20 3.0+(-)1.3 cm Mitral Valve MV Pk E: 0.96 MV PK A: 0.85 MV Decel Time: 160.00 E/A: 1.10 E'Lateral: 11.90 E'Medial: 11.40 E/E' Med: 8.40 E/E' Lat: 8.10 PHT: 47.00 MVA PHT: 4.68 Decel Dixon: 5.99 Aortic Valve AoV Pk Sang: 1.01 AoV Mn Sang: 0.71 AoV VTI: 0.26 AoV Pk Grad: 4.00 Aov Mn Grad: 2.00 KWESI Cont.VTI: 1.86 LVOT LVOT Pk Sang: 0.65 LVOT Mn Sang: 0.36 LVOT VTI: 0.13 LVOT Pk Grad: 2.00 LVOT Mn Grad: 1.00 LVOT Diam: 2.20 LVOT Area: 3.80 Diastolic Function MV Pk E: 0.96 MV Pk A: 0.85 E/A: 1.10 E'Medial: 11.40 E/E' Med: 8.40 E' Laterial: 11.90 E/E' Lat: 8.10 Right Ventricle TAPSE (mm): 9.12 TVS' Sang: 11.52 Tricuspid Valve TR Pk Sang: 3.15 TR Pk Grad: 40.00 RA Press: 8.00 RVSP: 48.00 Great Vessels Aorta Sinus of Valsalva: 3.60 2.0-3.5 cm Ao Asc: 3.10 2.1-3.4 cm Pulmonary Valve PV Pk Sang: 1.28 Peak PV Grad: 7.00 Updated in Other Vendor System with Status of Final Luca Prado MD electronically signed on 04/13/2024 3:12:34 PM with status of Final
[2024-04-13] MEDS: Fluticasone/Vilanterol 200/25 BLST.W.DEV 1 PUFF INHALE (07:42)
[2024-04-13] MEDS: Potassium Chloride Packet 20 MEQ PACKET 40 MEQ PO (07:53)
--- NOTE | 2024-04-13 07:53 | PC.NURSE ---
pt declined straight cath, aware of need for urine sample. medicated per DEC.
--- NOTE | 2024-04-13 08:47 | MHC.CM.PN ---
CM met with Patient at bedside in the ED and addressed IMM with him, providing Patient with the original and a copy will be placed on the chart. Patient lives in a house with his Brother, Son, and adult Grandson and he uses a cane to assist with mobility. Home/self care is the goal and CM has initiated and will follow for dc planning. PCP is Dr. Kym Sebastian and Daughter/Kamla is the HCP.
[2024-04-13] MEDS: Aspirin Enteric Coated 81 MG TABLET.DR PO (09:46)
[2024-04-13] MEDS: Multivitamin TABLET 1 TAB PO (09:46)
[2024-04-13] MEDS: Folic Acid 1 MG TABLET PO (09:46)
[2024-04-13] MEDS: Cholecalciferol (Vitamin D3) 25 MCG TABLET PO (09:47)
[2024-04-13] MEDS: Thiamine HCL 100 MG in 0.9 % Sodium Chloride 100 ML 202 MG IV (09:47)
[2024-04-13] MEDS: Heparin Sodium,Porcine 5,000 UNIT/ML VIAL 5000 UNIT SUBCUT ×2 (09:47→17:11)
[2024-04-13] MEDS: Atorvastatin Calcium 20 MG TABLET PO (09:47)
[2024-04-13] MEDS: Potassium Chloride/H20 10 MEQ/100 ML PIGGYBACK 100 MEQ IV ×2 (09:48→11:21)
[2024-04-13 09:54] LABS: Appearance Urine Clear; Color Urine Dark Yellow; Glucose Urine UA Negative (Negative); Leukocyte Esterase Urine Small (1+) (Negative); Nitrite Urine Negative (Negative); PH 5.5 (5.0-9.0); Specific Gravity - Urine 1.015 (1.005-1.025); UMIC TRIGGER UACC YES; Urine Blood Negative (Negative); Urine Ketones Trace mg/dL (Negative); Urine Protein Trace mg/dL (Neg-Trace)
[2024-04-13 10:02] LABS: Amphetamine Screen Urine Not Detected (Not Detect); Barbiturates, Urine Not Detected (Not Detect); Benzodiazepines Screen Urine Not Detected (Not Detect); Buprenorphine Scr Not Detected (Not Detect); Cannabinoid Screen Urine Not Detected (Not Detect); Cocaine Screen Urine Not Detected (Not Detect); Fentanyl, urine Not Detected (Not Detect); Methadone Screen, Urine Not Detected (Not Detect); Opiate Screen Urine Not Detected (Not Detect); Oxycodone Screen Urine Not Detected (Not Detect); Phencyclidine Screen Urine Not Detected (Not Detect)
[2024-04-13 10:04] LABS: Bacteria Urine None Seen (None Seen); RBC Urine 0-2 /HPF (0-2); UACC Culture Trigger YES
[2024-04-13 11:20] LABS: Potassium 3.8 mmol/L (3.3-5.1)
--- NOTE | 2024-04-13 12:05 | MHC.CLN ---
RE: CONSULT HT USED FOR ASSESSMENT 5'7 FROM PREVIOUS ADMISSION WT 45.2 KG (04/12/24) BMI 15.6 PREVIOUS WT 48KG (04/12/23) PT WITH 6% NONSIGNIFICANT WT LOSS X1 YEAR HOWEVER PT IS MODERATELY UNDER WT FOR HT DIET RX: CARDIAC-APPROPRIATE RECOMMEND ADDING ENSURE BID TO INCREASE KCALS SUPP TO PROVIDE 700KCALS, 40G PROTEIN MONITOR PO INTAKE AND ENCOURAGE SUPPLEMENT FULL CLINICAL NUTRITION ASSESSMENT TO FOLLOW WHEN PT TRANSITIONS TO IN -PT
--- NOTE | 2024-04-13 13:38 | P.CONCA_ITS ---
History of Present Illness History of Present Illness Date of Service: 04/13/24 Requesting physician: Ana Hanson Chief complaint: Syncope,bradycardia Narrative: 68-year-old gentleman with past medical history significant for coronary artery disease status post bypass surgery, persistent atrial fibrillation which was treated with rate control strategy with digoxin and metoprolol, hyperlipidemia, tobacco abuse and alcohol use who is here with reported history of syncope. He was noticed to be bradycardic with heart rate in 40s in atrial fibrillation with premature ventricular complexes. He does not remember what happened. He is very emaciated. He said he was smoking and was drinking up to 3 drinks of vodka daily. His digoxin level was 1.7. Also it appears he has been on metoprolol tartrate 100 mg twice a day in the past. I have not seen him recently and last time I saw him was 3 years ago but he has gone down hill significantly and has lost significant amount of weight and looks cachectic. [facility] Past Medical History Medical History Respiratory failure with hypoxia History of AL (myocardial infarction) History of seizure due to alcohol withdrawal Atrial fibrillation with slow ventricular response Hypoxemia CAP (community acquired pneumonia) Chronic respiratory failure Atherosclerotic cardiovascular disease CHF (congestive heart failure) CAD (coronary artery disease) History of ischemic cardiomyopathy Tobacco abuse Alcohol abuse Hypercholesteremia COPD (chronic obstructive pulmonary disease) Surgical History Surgical History History of coronary artery bypass graft x 3 (~2013) History of surgery on lower extremity (~2018) Social History Social History Household Members: Family Household Members Other:: CHILDREN,GRANDCHILDREN Housing: House Do you presently have visiting nurse or other home services: No Alcohol intake: current Alcohol intake frequency: 0-2 drinks per day Alcohol type: hard liquor Patient Tobacco Use Status: Current everyday Tobacco user Tobacco use type: Cigarette Cigarette Packs Per Day: 0.5 Cigarettes Per Day: 10 Years Smoked: 40+ e-Cigarette/Vaping Use: Never Used Second Hand Smoke Exposure: No Advance Directives Date on File: 11/08/20 service: No Current occupational status: retired Meds Allergies Allergy/AdvReac Type Severity Reaction Status Date / Time No Known Allergies Allergy Verified 04/12/24 16:59 [No Known Allergies*] Active Medications: Current Medications Acetaminophen (Acetaminophen 325 Mg Tablet) 975 mg PO Q6H PRN PRN Reason: Pain, Mild (Pain Scale 1-3), fever or headache Albuterol Sulfate (Albuterol Sulfate 90 Mcg 8 Gm Inhaler) 2 puff INHALE Q4H PRN PRN Reason: shortness of breath or wheezing Aspirin (Aspirin Enteric Coated 81 Mg Tablet.Dr) 81 mg PO DAILY [facility] Last Admin: 04/13/24 09:46 Dose: 81 mg Atorvastatin Calcium (Atorvastatin Calcium 20 Mg Tablet) 20 mg PO DAILY [facility] Last Admin: 04/13/24 09:47 Dose: 20 mg Fluticasone/Vilanterol (Fluticasone/Vilanterol 200/25 Blst.W.Dev) 1 puff INHALE RDAILY [facility] Last Admin: 04/13/24 07:42 Dose: 1 puff Folic Acid (Folic Acid 1 Mg Tablet) 1 mg PO DAILY [facility] Last Admin: 04/13/24 09:46 Dose: 1 mg Heparin Sodium (Porcine) (Heparin Sodium,Porcine 5,000 Unit/Ml Vial) 5,000 unit SUBCUT Q8H [facility] Last Admin: 04/13/24 09:47 Dose: 5,000 unit Thiamine HCl 100 mg/ Sodium (Chloride) 101 mls @ 202 mls/hr IV DAILY [facility] Last Infusion: 04/13/24 10:21 Dose: Infused Multivitamins/Vitamin C (Multivitamin Tablet) 1 tab PO DAILY [facility] Last Admin: 04/13/24 09:46 Dose: 1 tab Sodium Chloride (0.9 % Sodium Chloride Flush 3 Ml Syringe) 3 ml IVFLUSH QSHIFT [facility] Last Admin: 04/13/24 09:46 Dose: 3 ml Vitamin D (Cholecalciferol (Vitamin D3) 25 Mcg Tablet) 25 mcg PO DAILY [facility] Last Admin: 04/13/24 09:47 Dose: 25 mcg Home Medications ?Medication ?Instructions ?Recorded ?Confirmed ?Last Taken ?Type aspirin 81 mg tablet,delayed 81 mg PO DAILY 08/12/20 04/12/24 04/12/24 History release thiamine HCl (vitamin B1) 100 mg 100 mg PO DAILY 11/05/20 04/12/24 04/12/24 History tablet (Vitamin B-1) cholecalciferol (vitamin D3) 25 25 mcg PO DAILY 11/07/20 04/12/24 04/12/24 History mcg (1,000 unit) capsule (Vitamin D3) Physical Exam 2 Vital Signs: Vital Signs: Last Vital Signs Temp 98.1 F 04/13/24 09:29 Pulse 91 04/13/24 09:44 Resp 19 04/13/24 09:29 BP 132/66 04/13/24 09:44 Pulse Ox 95 04/13/24 09:29 O2 Del Method Nasal Cannula 04/13/24 09:29 O2 Flow Rate 2 04/13/24 06:40 BMI result Body Mass Index 15.6 GENERAL APPEARANCE: Cachectic. NECK: no carotid bruit, no jugular venous distention. SKIN: no suspicious lesions, warm and dry. HEART: no murmurs, irregular rate and rhythm. Bradycardic. LUNGS: clear to auscultation bilaterally. ABDOMEN: soft, nontender. EXTREMITIES: no edema. PERIPHERAL PULSES: equal. NEUROLOGIC: No gross deficits, AAO X 3 Objective Labs and Meds 04/13/24 05:00 04/13/24 10:50 Lab results: Laboratory Results - last 24 hr 04/12/24 04/12/24 04/13/24 17:53 19:59 01:08 WBC 9.6 RBC 3.93 L Hgb 13.2 L Hct 38.6 L MCV 98.2 H MCH 33.6 H MCHC 34.2 RDW 14.0 Plt Count 427 H D MPV 9.8 Immature Gran % (Auto) 0.7 H Neut % (Auto) 74.1 H Lymph % (Auto) 11.4 L [place] % (Auto) 11.8 H Eos % (Auto) 0.9 Baso % (Auto) 1.1 Lymph # (Auto) 1.1 L [place] # (Auto) 1.1 Eos # (Auto) 0.1 Baso # (Auto) 0.1 Abs Immat Gran (auto) 0.07 H Absolute Neuts (auto) 7.1 Absolute Nucleated RBC 0.000 Nucleated RBC % (auto) 0.0 PT 16.5 H INR 1.4 H Sodium 141 Potassium 3.6 Chloride 103 Carbon Dioxide 25 Anion Gap 17 BUN 26 H Creatinine 1.37 Estim Creat Clear Calc 33.4 Estimated GFR 52 Random Glucose 84 Calcium 8.0 L D Magnesium 1.5 L 2.2 Total Bilirubin 1.0 AST 18 ALT 5 Alkaline Phosphatase 100 Total Creatine Kinase 27 L Troponin I High Sens 26.4 D 26.7 B-Natriuretic Peptide 555 H Total Protein 6.5 Albumin 3.2 L Lipase < 4 L Urine Color Urine Appearance Urine pH Ur Specific [place] Urine Protein Urine Glucose (UA) Urine Ketones Urine Blood Urine Nitrite Ur Leukocyte Esterase Urine RBC Urine WBC Ur Squamous Epith Cells Urine Bacteria Hyaline Casts Digoxin 1.7 Urine Opiates Screen Ur Buprenorphine Scrn Ur Oxycodone Screen Urine Methadone Screen Urine Fentanyl Screen Ur Barbiturates Screen Ur Phencyclidine Scrn Ur Amphetamines Screen U Benzodiazepines Scrn Urine Cocaine Screen U Marijuana (THC) Screen Ethyl Alcohol 42 Influenza Type A (PCR) NEGATIVE Influenza Type B (PCR) NEGATIVE RSV RNA Qual (PCR) NEGATIVE SARS-CoV-2 RNA (RT-PCR) NEGATIVE 04/13/24 04/13/24 04/13/24 04:59 05:00 09:44 WBC 10.5 RBC 3.75 L Hgb 12.6 L Hct 36.9 L MCV 98.4 H MCH 33.6 H MCHC 34.1 RDW 14.1 Plt Count 398 MPV 9.8 Immature Gran % (Auto) 0.9 H Neut % (Auto) 70.8 Lymph % (Auto) 11.6 L [place] % (Auto) 13.9 H Eos % (Auto) 1.8 Baso % (Auto) 1.0 Lymph # (Auto) 1.2 [place] # (Auto) 1.5 H Eos # (Auto) 0.2 Baso # (Auto) 0.1 Abs Immat Gran (auto) 0.09 H Absolute Neuts (auto) 7.4 Absolute Nucleated RBC 0.000 Nucleated RBC % (auto) 0.0 PT INR Sodium 140 Potassium 2.6 L* D Chloride 104 Carbon Dioxide 25 Anion Gap 14 BUN 25 H Creatinine 1.04 Estim Creat Clear Calc 44.0 Estimated GFR > 60 Random Glucose 71 Calcium 8.1 L Magnesium 2.2 Total Bilirubin 1.3 H AST 14 ALT 6 Alkaline Phosphatase 102 Total Creatine Kinase Troponin I High Sens B-Natriuretic Peptide Total Protein 6.1 L Albumin 3.1 L Lipase Urine Color Dark Yellow Urine Appearance Clear Urine pH 5.5 Ur Specific [place] 1.015 Urine Protein Trace Urine Glucose (UA) Negative Urine Ketones Trace Urine Blood Negative Urine Nitrite Negative Ur Leukocyte Esterase Small (1+) H Urine RBC 0-2 Urine WBC 11-20 H Ur Squamous Epith Cells 3-5 Urine Bacteria None Seen Hyaline Casts 6-10 Digoxin Urine Opiates Screen Not Detected Ur Buprenorphine Scrn Not Detected Ur Oxycodone Screen Not Detected Urine Methadone Screen Not Detected Urine Fentanyl Screen Not Detected Ur Barbiturates Screen Not Detected Ur Phencyclidine Scrn Not Detected Ur Amphetamines Screen Not Detected U Benzodiazepines Scrn Not Detected Urine Cocaine Screen Not Detected U Marijuana (THC) Screen Not Detected Ethyl Alcohol Influenza Type A (PCR) Influenza Type B (PCR) RSV RNA Qual (PCR) SARS-CoV-2 RNA (RT-PCR) 04/13/24 10:50 WBC RBC Hgb Hct MCV MCH MCHC RDW Plt Count MPV Immature Gran % (Auto) Neut % (Auto) Lymph % (Auto) [place] % (Auto) Eos % (Auto) Baso % (Auto) Lymph # (Auto) [place] # (Auto) Eos # (Auto) Baso # (Auto) Abs Immat Gran (auto) Absolute Neuts (auto) Absolute Nucleated RBC Nucleated RBC % (auto) PT INR Sodium Potassium 3.8 D Chloride Carbon Dioxide Anion Gap BUN Creatinine Estim Creat Clear Calc Estimated GFR Random Glucose Calcium Magnesium Total Bilirubin AST ALT Alkaline Phosphatase Total Creatine Kinase Troponin I High Sens B-Natriuretic Peptide Total Protein Albumin Lipase Urine Color Urine Appearance Urine pH Ur Specific [place] Urine Protein Urine Glucose (UA) Urine Ketones Urine Blood Urine Nitrite Ur Leukocyte Esterase Urine RBC Urine WBC Ur Squamous Epith Cells Urine Bacteria Hyaline Casts Digoxin Urine Opiates Screen Ur Buprenorphine Scrn Ur Oxycodone Screen Urine Methadone Screen Urine Fentanyl Screen Ur Barbiturates Screen Ur Phencyclidine Scrn Ur Amphetamines Screen U Benzodiazepines Scrn Urine Cocaine Screen U Marijuana (THC) Screen Ethyl Alcohol Influenza Type A (PCR) Influenza Type B (PCR) RSV RNA Qual (PCR) SARS-CoV-2 RNA (RT-PCR) Imaging Radiologist's impression: Impressions Chest X-Ray 04/12/24 17:40 IMPRESSION: Chronic appearing and postoperative changes. Central vascular prominence likely reflecting a component of underlying pulmonary arterial hypertension. Cervical Spine CT 04/12/24 18:23 IMPRESSION: * No intracranial hemorrhage or other acute intracranial pathology compared to 03/18/2020. * No fracture or traumatic subluxation in the chronically degenerated cervical spine. * Severe pulmonary emphysema of the visualized upper lobes. Head CT 04/12/24 18:23 IMPRESSION: * No intracranial hemorrhage or other acute intracranial pathology compared to 03/18/2020. * No fracture or traumatic subluxation in the chronically degenerated cervical spine. * Severe pulmonary emphysema of the visualized upper lobes. Assessment and Plan (1) Bradyarrhythmia: Status: Acute Plan [age] gentleman with Crow arrhythmia and reported syncope. The patient can not give any history. He has known persistent atrial fibrillation and was on digoxin and metoprolol. His dig level is 1.7 which is elevated. Also was apparently on metoprolol 100 mg twice a day. Overall heart rates are 40s to 50s in atrial fibrillation with premature ventricular complexes. Holding digoxin and metoprolol. Check a dig level tomorrow again. Significantly emaciated and has very low muscle mass. High risk for device erosion in case permanent pacemaker is placed. Given his current health situation, I would try to avoid pacemaker as much as possible. He is off digoxin and [id number]-jagruti. Will monitor heart rate closely. Encouraged him to eat and drink. Give nutritional supplements. He needs goals of care discussion with family. Thank you for allowing me to participate in the care of your patient. Please feel free to contact me if you have any questions. Procedures Date of Service Date of Service: 04/13/24
--- NOTE | 2024-04-13 13:47 | MHC.EDTECH ---
This tech presented to obtain vital signs from patient. Patient had removed his oxygen. Per Ania BECK - check back in 10 minutes
--- NOTE | 2024-04-13 13:53 | HO.PM.IMPN ---
Subjective Subjective Date of Service: 04/13/24 Interval History: seen and examined this morning follow up for syncope patient unsure what happened doesn't remember dizziness, palpitations or chest pain Review of Systems Review of Systems: Yes all other systems are reviewed and are negative Constitutional Constitutional: Denies chills and Denies fever(s) Physical Exam Vital Signs: Vital Signs: Last Vital Signs Temp 98.1 F 04/13/24 09:29 Pulse 91 04/13/24 09:44 Resp 19 04/13/24 09:29 BP 132/66 04/13/24 09:44 Pulse Ox 95 04/13/24 09:29 O2 Del Method Nasal Cannula 04/13/24 09:29 O2 Flow Rate 2 04/13/24 06:40 BMI result Body Mass Index 15.6 Const: General: cooperative, no acute distress, alert and awake Nutritional Appearance: thin Orientation/consciousness: patient oriented x3 Resp: Other: diminished breath sounds Effort & Inspection: normal respiratory effort and able to speak in complete sentences Cardio: Rate: regular rate GI: Inspection: No distended Palpation (GI): Soft to palpation and nontender Neuro: General: patient oriented x3 Extrem: General: Yes no pedal edema Objective Data Active Medications Acetaminophen (Acetaminophen 325 Mg Tablet) 975 mg PO Q6H PRN PRN Reason: Pain, Mild (Pain Scale 1-3), fever or headache Albuterol Sulfate (Albuterol Sulfate 90 Mcg 8 Gm Inhaler) 2 puff INHALE Q4H PRN PRN Reason: shortness of breath or wheezing Aspirin (Aspirin Enteric Coated 81 Mg Tablet.) 81 mg PO DAILY [facility] Last Admin: 04/13/24 09:46 Dose: 81 mg Documented By: MANJIT Atorvastatin Calcium (Atorvastatin Calcium 20 Mg Tablet) 20 mg PO DAILY [facility] Last Admin: 04/13/24 09:47 Dose: 20 mg Documented By: MANJIT Fluticasone/Vilanterol (Fluticasone/Vilanterol 200/25 Blst.W.Dev) 1 puff INHALE RDAILY [facility] Last Admin: 04/13/24 07:42 Dose: 1 puff Documented By: MARTIN Folic Acid (Folic Acid 1 Mg Tablet) 1 mg PO DAILY [facility] Last Admin: 04/13/24 09:46 Dose: 1 mg Documented By: MANJIT Heparin Sodium (Porcine) (Heparin Sodium,Porcine 5,000 Unit/Ml Vial) 5,000 unit SUBCUT Q8H [facility] Last Admin: 04/13/24 09:47 Dose: 5,000 unit Documented By: MANJIT Thiamine HCl 100 mg/ Sodium (Chloride) 101 mls @ 202 mls/hr IV DAILY [facility] Last Infusion: 04/13/24 10:21 Dose: Infused Documented By: MANJIT Multivitamins/Vitamin C (Multivitamin Tablet) 1 tab PO DAILY [facility] Last Admin: 04/13/24 09:46 Dose: 1 tab Documented By: MANJIT Sodium Chloride (0.9 % Sodium Chloride Flush 3 Ml Syringe) 3 ml IVFLUSH QSHIFT [facility] Last Admin: 04/13/24 09:46 Dose: 3 ml Documented By: MANJIT Vitamin D (Cholecalciferol (Vitamin D3) 25 Mcg Tablet) 25 mcg PO DAILY [facility] Last Admin: 04/13/24 09:47 Dose: 25 mcg Documented By: MANJIT Labs 04/13/24 05:00 04/13/24 10:50 Labs: Laboratory Results - last 24 hr 04/12/24 04/12/24 04/13/24 17:53 19:59 01:08 MCV 98.2 H MCH 33.6 H MCHC 34.2 RDW 14.0 Plt Count 427 H D MPV 9.8 Immature Gran % (Auto) 0.7 H Neut % (Auto) 74.1 H Lymph % (Auto) 11.4 L [place] % (Auto) 11.8 H Eos % (Auto) 0.9 Baso % (Auto) 1.1 Lymph # (Auto) 1.1 L [place] # (Auto) 1.1 Eos # (Auto) 0.1 Baso # (Auto) 0.1 Abs Immat Gran (auto) 0.07 H Absolute Neuts (auto) 7.1 Absolute Nucleated RBC 0.000 Nucleated RBC % (auto) 0.0 PT 16.5 H INR 1.4 H Anion Gap 17 Estim Creat Clear Calc 33.4 Estimated GFR 52 Random Glucose 84 Calcium 8.0 L D Magnesium 1.5 L 2.2 Total Bilirubin 1.0 AST 18 ALT 5 Alkaline Phosphatase 100 Total Creatine Kinase 27 L Troponin I High Sens 26.4 D 26.7 B-Natriuretic Peptide 555 H Total Protein 6.5 Albumin 3.2 L Lipase < 4 L Urine Color Urine Appearance Urine pH Ur Specific [place] Urine Protein Urine Glucose (UA) Urine Ketones Urine Blood Urine Nitrite Ur Leukocyte Esterase Urine RBC Urine WBC Ur Squamous Epith Cells Urine Bacteria Hyaline Casts Digoxin 1.7 Urine Opiates Screen Ur Buprenorphine Scrn Ur Oxycodone Screen Urine Methadone Screen Urine Fentanyl Screen Ur Barbiturates Screen Ur Phencyclidine Scrn Ur Amphetamines Screen U Benzodiazepines Scrn Urine Cocaine Screen U Marijuana (THC) Screen Ethyl Alcohol 42 Influenza Type A (PCR) NEGATIVE Influenza Type B (PCR) NEGATIVE RSV RNA Qual (PCR) NEGATIVE SARS-CoV-2 RNA (RT-PCR) NEGATIVE 04/13/24 04/13/24 04/13/24 04:59 05:00 09:44 MCV 98.4 H MCH 33.6 H MCHC 34.1 RDW 14.1 Plt Count 398 MPV 9.8 Immature Gran % (Auto) 0.9 H Neut % (Auto) 70.8 Lymph % (Auto) 11.6 L [place] % (Auto) 13.9 H Eos % (Auto) 1.8 Baso % (Auto) 1.0 Lymph # (Auto) 1.2 [place] # (Auto) 1.5 H Eos # (Auto) 0.2 Baso # (Auto) 0.1 Abs Immat Gran (auto) 0.09 H Absolute Neuts (auto) 7.4 Absolute Nucleated RBC 0.000 Nucleated RBC % (auto) 0.0 PT INR Anion Gap 14 Estim Creat Clear Calc 44.0 Estimated GFR > 60 Random Glucose 71 Calcium 8.1 L Magnesium 2.2 Total Bilirubin 1.3 H AST 14 ALT 6 Alkaline Phosphatase 102 Total Creatine Kinase Troponin I High Sens B-Natriuretic Peptide Total Protein 6.1 L Albumin 3.1 L Lipase Urine Color Dark Yellow Urine Appearance Clear Urine pH 5.5 Ur Specific [place] 1.015 Urine Protein Trace Urine Glucose (UA) Negative Urine Ketones Trace Urine Blood Negative Urine Nitrite Negative Ur Leukocyte Esterase Small (1+) H Urine RBC 0-2 Urine WBC 11-20 H Ur Squamous Epith Cells 3-5 Urine Bacteria None Seen Hyaline Casts 6-10 Digoxin Urine Opiates Screen Not Detected Ur Buprenorphine Scrn Not Detected Ur Oxycodone Screen Not Detected Urine Methadone Screen Not Detected Urine Fentanyl Screen Not Detected Ur Barbiturates Screen Not Detected Ur Phencyclidine Scrn Not Detected Ur Amphetamines Screen Not Detected U Benzodiazepines Scrn Not Detected Urine Cocaine Screen Not Detected U Marijuana (THC) Screen Not Detected Ethyl Alcohol Influenza Type A (PCR) Influenza Type B (PCR) RSV RNA Qual (PCR) SARS-CoV-2 RNA (RT-PCR) Assessment and Plan (1) Syncope: Status: Acute (2) Bradyarrhythmia: Status: Acute Plan Noble Valencia is a 68 y/o man admitted with: Syncope + bigeminy/multiple PVCs + bradycardia. Concerning for cardiac in nature. orthostatic blood pressure negative trop negative Hold digoxin and metoprolol. echo pending cardiology pending hypokalemia replace and follow levels Hypomagnesemia. resolved with replacement TYESHA. renal function improving due to poor p.o. intake + diuretic use + alcohol use HFrEF (30-35%). No evidence of decompensation. Furosemide on hold due to TYESHA. CAD. No chest pain. Continue aspirin and statin. Atrial fibrillation. Digoxin and metoprolol on hold for bradycardia Continue aspirin. Not on anticoagulation ? due to etoh use Vitamin-D deficiency. Continue vitamin-D supplementation. Alcohol dependence CIWA low, no evidence of etoh withdrawal at this time Thiamine, folic acid and multivitamins COPD/chronic respiratory failure per pulm notes supposed to use 2L o2 continuous No acute symptoms reported. Continue home inhalers. moderate Protein calorie malnutrition. BMI 14.3 kg/m2. Dietary consult. dietary supplements Code status: Full DVT prophylaxis: Heparin Patient will need hospitalization for at least 2 midnights for syncope and hypomagnesemia treatment with continuous cardiac monitoring, magnesium supplementation and close vital signs monitoring as well as subspecialty evaluation. Quality Stroke Does the patient have a stroke diagnosis?: No VTE Prior VTE?: No VTE Risk Level:: Medical - moderate - high VTE Device Contraindication: Treatment Not Indicated VTE Drug Contraindication: N/A - Med Ordered
[2024-04-14] VITALS (11 sets, daily range): BP systolic 99–154; BP diastolic 57–92; PULSE 59–115; RESP 16–24; TEMP 36–36.7; O2SAT 93–98; BMI 15.6
[2024-04-14] MEDS: Heparin Sodium,Porcine 5,000 UNIT/ML VIAL 5000 UNIT SUBCUT ×3 (03:27→15:52)
[2024-04-14] MEDS: 0.9 % Sodium Chloride Flush 3 ML SYRINGE IVFLUSH ×3 (03:27→15:53)
[2024-04-14] MEDS: Albuterol/Iprat 2.5/0.5MG 3 ML AMPUL.NEB INHALE ×5 (03:54→20:08)
[2024-04-14] MEDS: methylPREDNISolone Sod Succ 125 MG/2 ML VIAL IVPUSH (03:55)
[2024-04-14] MEDS: Morphine Sulfate 2 MG/ML CARTRIDGE IVPUSH (03:55)
[2024-04-14] MEDS: Magnesium Sulfate/H2O 2 GM/50 ML PIGGYBACK IV ×2 (04:16→11:25)
[2024-04-14] MEDS: Morphine Sulfate 4 MG/ML CARTRIDGE 3 MG IVPUSH (04:44)
[2024-04-14] MEDS: Azithromycin 500 MG in 0.9 % Sodium Chloride 250 ML 125 MG IV (04:49)
--- NOTE | 2024-04-14 05:10 | PC.NURSE ---
Around 0330 patient was noted to be very short of breath he was sating in the low 80s on 2 L n/c .Oxygen perfusion increased and Respiratory therapy was notified along with MD Walters. Patient had increased work of breathing. Orders for solumedrol , morphine and duonebs were placed along with CXR. Medications administered and was effective . Patient lung sounds have wheezes and are tight. Patient is currently in bed with an oxymask on , no resp distress .Patient HR is elevated into the 110s. Call styles present . Hourly rounding in place.
--- NOTE | 2024-04-14 05:12 | P.EN_ITS ---
Event Note Date of Service: 04/14/24 Event Note: 3:38 AM - Contacted by nursing to notify the patient has developed shortness of bread and tachycardia, HR 120-130 bpm. Evaluated patient. RT at bedside and administering stat breathing treatment. Patient looked in respiratory distress and quite tachypneic. Unable to speak well due to dyspnea. No fever or hypotension. O2 sats dropped to the 80s. Cardiopulmonary exam is remarkable for tachycardia prominent expiratory wheezes. CXR stat showed minimal infiltrate ch leslie. Tx given: Duoneb X2 Solu-Medrol 125 mg IV now then 40 mg IV bid. Morphine 5 mg IV (total) Magnesium sulfate 2 g IV (ED dose) Azithromycin 500 mg IV now then q24h. Start Duoneb every 4hr scheduled and prn Venous blood gas stat, still pending. Time Spent With Patient Time: Total time managing care of this patient today ____ minutes.
--- NOTE | 2024-04-14 07:25 | PC.NURSE ---
0715 Patient HR in the 90s he has the oxymask on O2 is 98 % patient is calm and resting in the room no labored breathing. Report given to day RN .
[2024-04-14 07:45] LABS: Basophils Percent Auto 0.2 % (0-2); Eosinophils Percent Auto 0.2 % (0-4); Hematocrit 36.1 % (42.0-52.0); Hemoglobin 12.4 g/dl (14.0-18.0); Imm Gran Abs Auto 0.09 X10*3/uL (0.00-0.03); Imm Gran Pct Auto 0.7 % (0.0-0.4); Lymphocytes Absolute Auto 0.3 X10*3/uL (1.2-4.9); Lymphocytes Percent Auto 2.4 % (20-40); MANUAL DIFF FLAG SCAN; Mean Corpuscular HGB Conc 34.3 g/dl (31.0-36.0); Mean Corpuscular Hemoglobin 33.8 pg (27.0-33.0); Mean Corpuscular Volume 98.4 fL (80.0-98.0); Mean Platelet Volume 9.6 fL (9.4-12.4); Monocytes Absolute Auto 0.3 X10*3/uL (0.1-1.2); Monocytes Percent Auto 2.1 % (2-11); Neutrophils Absolute Auto 11.5 x10*3/uL (2.0-8.3); Neutrophils Percent Auto 94.4 % (45-73); Platelet Count 361 X10*3/uL (160-400); Red Blood Count 3.67 X10*6/uL (4.60-5.80); Red Cell Distribution Width 14.2 % (11.0-16.0); SCAN SMEAR FLAG 1; White Blood Count 12.1 X10*3/uL (4.8-10.8)
[2024-04-14 07:48] LABS: VBG Base Excess 1.5 mmol/L; VBG HCO3 26 mmol/L (22-26); VBG pCO2 43 mmHg; VBG pH 7.39 (7.32-7.43); VBG pO2 144 mmHg
[2024-04-14 07:49] LABS: Venous Blood Gas Refer to POC result
[2024-04-14] MEDS: Fluticasone/Vilanterol 200/25 BLST.W.DEV 1 PUFF INHALE (07:55)
[2024-04-14 07:58] LABS: Lactic Acid 1.6 mmol/L (0.5-2.0)
[2024-04-14 08:03] LABS: Digoxin 1.2 ng/mL (0.8-2.0)
[2024-04-14 08:04] LABS: SLIDE REVIEW VERIFIED
[2024-04-14 08:05] LABS: Alanine Aminotransferase 5 U/L (0-40); Alkaline Phosphatase 101 U/L (39-117); Aspartate Amino Transferase 15 U/L (5-37); Bilirubin Total 0.7 mg/dL (0.0-1.0); Blood Urea Nitrogen 18 mg/dL (9-16); Calcium 8.2 mg/dL (8.4-10.2); Creatinine Clr Calc Pharmacy 62.7; Estimated Glomerular Filt Rate > 60; Glucose Random 213 mg/dL (60-115); Magnesium 2.4 mg/dL (1.6-2.6); Total Protein 5.9 g/dL (6.5-8.0)
[2024-04-14 08:06] LABS: B Type Natriuretic Peptide 1048 pg/mL (<100)
[2024-04-14 08:20] LABS: Troponin-I High Sensitivity 25.7 ng/L (<3.5-35.0)
[2024-04-14 08:23] LABS: Anion Gap 16 (12-20); Carbon Dioxide 24 mmol/L (22-29); Chloride 106 mmol/L (96-108); Potassium 2.7 mmol/L (3.3-5.1); Sodium 143 mmol/L (135-145)
[2024-04-14] MEDS: Aspirin Enteric Coated 81 MG TABLET.DR PO (08:40)
[2024-04-14] MEDS: Folic Acid 1 MG TABLET PO (08:40)
[2024-04-14] MEDS: Atorvastatin Calcium 20 MG TABLET PO (08:40)
[2024-04-14] MEDS: Multivitamin TABLET 1 TAB PO (08:40)
[2024-04-14] MEDS: methylPREDNISolone Sod Succ 40 MG/ML VIAL IVPUSH ×2 (08:40→21:12)
[2024-04-14] MEDS: Cholecalciferol (Vitamin D3) 25 MCG TABLET PO (08:41)
[2024-04-14] MEDS: Potassium Chloride/H20 10 MEQ/100 ML PIGGYBACK 100 MEQ IV ×2 (09:09→11:12)
[2024-04-14] MEDS: Potassium Chloride Packet 20 MEQ PACKET 60 MEQ PO (09:09)
--- NOTE | 2024-04-14 10:20 | P.PNCA_ITS ---
Subjective Subjective Date of Service: 04/14/24 Interval history: Seen examined at bedside. He has respiratory issues overnight and has been started on antibiotics. Due to have significant polymorphic PVCs on telemetry. Significantly malnourished and emaciated. Physical Exam Vital Signs: Last Vital Signs Temp 98.0 F 04/14/24 07:46 Pulse 66 04/14/24 07:56 Resp 20 04/14/24 07:56 BP 99/57 L 04/14/24 07:46 Pulse Ox 98 04/14/24 07:46 O2 Del Method Oxymask 04/14/24 07:46 O2 Flow Rate 2 04/14/24 07:46 BMI result Body Mass Index 15.6 GENERAL APPEARANCE: Cachectic. NECK: no carotid bruit, no jugular venous distention. SKIN: no suspicious lesions, warm and dry. HEART: no murmurs, irregular rate and rhythm. LUNGS: clear to auscultation bilaterally. ABDOMEN: soft, nontender. EXTREMITIES: no edema. PERIPHERAL PULSES: equal. NEUROLOGIC: No gross deficits, AAO X 3 Objective Labs and Meds 04/14/24 07:38 04/14/24 07:38 Lab results: Laboratory Results - last 24 hr 04/13/24 04/14/24 04/14/24 10:50 07:38 07:42 WBC 12.1 H RBC 3.67 L Hgb 12.4 L Hct 36.1 L MCV 98.4 H MCH 33.8 H MCHC 34.3 RDW 14.2 Plt Count 361 MPV 9.6 Immature Gran % (Auto) 0.7 H Neut % (Auto) 94.4 H Lymph % (Auto) 2.4 L [place] % (Auto) 2.1 Eos % (Auto) 0.2 Baso % (Auto) 0.2 Lymph # (Auto) 0.3 L [place] # (Auto) 0.3 Eos # (Auto) 0.0 Baso # (Auto) 0.0 Abs Immat Gran (auto) 0.09 H Absolute Neuts (auto) 11.5 H Absolute Nucleated RBC 0.000 Nucleated RBC % (auto) 0.0 Smear Tech's Comments VERIFIED VBG pH 7.39 VBG pCO2 43 VBG pO2 144 VBG HCO3 26 VBG O2 Saturation 99.0 VBG Base Excess 1.5 Sodium 143 Potassium 3.8 D 2.7 L* D Chloride 106 Carbon Dioxide 24 Anion Gap 16 BUN 18 H Creatinine 0.73 Estim Creat Clear Calc 62.7 Estimated GFR > 60 Random Glucose 213 H Lactic Acid 1.6 Calcium 8.2 L Magnesium 2.4 Total Bilirubin 0.7 AST 15 ALT 5 Alkaline Phosphatase 101 Troponin I High Sens B-Natriuretic Peptide 1048 H Total Protein 5.9 L Albumin 3.0 L Digoxin 1.2 04/14/24 07:52 WBC RBC Hgb Hct MCV MCH MCHC RDW Plt Count MPV Immature Gran % (Auto) Neut % (Auto) Lymph % (Auto) [place] % (Auto) Eos % (Auto) Baso % (Auto) Lymph # (Auto) [place] # (Auto) Eos # (Auto) Baso # (Auto) Abs Immat Gran (auto) Absolute Neuts (auto) Absolute Nucleated RBC Nucleated RBC % (auto) Smear Tech's Comments VBG pH VBG pCO2 VBG pO2 VBG HCO3 VBG O2 Saturation VBG Base Excess Sodium Potassium Chloride Carbon Dioxide Anion Gap BUN Creatinine Estim Creat Clear Calc Estimated GFR Random Glucose Lactic Acid Calcium Magnesium Total Bilirubin AST ALT Alkaline Phosphatase Troponin I High Sens 25.7 B-Natriuretic Peptide Total Protein Albumin Digoxin Imaging Radiologist's impression: Impressions Chest X-Ray 04/14/24 04:09 IMPRESSION: 1. Lingular increased markings/minimal infiltrative change. A developing infiltrate is considered. 2. Emphysema. 3. No significant pleural effusions. Progress Note: A&P Assessment and plan (1) Syncope: Status: Acute (2) Bradyarrhythmia: Status: Acute Plan [age] year gentleman with known history of coronary artery bypass surgery, tobacco abuse and alcoholism who presented with reported history of syncope. He does not remember anything. He is cachectic and significantly macerated at this point. I saw him 3 years ago and he has lost significant weight over this time and appears significantly malnourished. Nutritional supplementation. He has slow atrial fibrillation with significant premature ventricular complexes. His digoxin level was 1.7 and he is hypokalemic. Replete potassium and monitor closely. Hold digoxin and beta-blockers. No clear indication for pacemaker. I have discussed this with him and he also does not seem to be interested in doing any procedures. I think his problems are alcoholism and significant malnourishment at this point. Cardiovascular management will be conservative and noninvasive. Thank you for allowing me to participate in the care of your patient. Please feel free to contact me if you have any questions. Time Spent With Patient Time: Total time managing care of this patient today ____ minutes. Progress Note: Quality Stroke Does the patient have a stroke diagnosis?: No Procedures Date of Service Date of Service: 04/14/24
--- NOTE | 2024-04-14 11:44 | MHC.SL.SWA ---
Speech Pathologist Impression: Risk of Aspiration Due to: Medically Fragile Dysphasia Diet Status: Liquid Consistency and Strategies for Safe Swallow: Liquid Intake Recommendation: Thin Liquid Intake Strategies: Unrestricted Solid Food Consistency: Dietary Recommendations: Chopped/Advanced (NDD3) Additional Modifications to Solid Foods: Assure that patient has access to all foods and drink at onset of meal. Alternate liquids and solids. Oral Medication Intake: Whole with Liquid Please contact the pharmacy regarding appropriate crushable or liquid drug formulations that are available whenever modified delivery is recommended. Compensatory Strategies and Precautions to be Taken for Safe Swallow: Sitting Upright (90 deg) Small Bites and Sips Alternate Liquids/Solids Supervision While Eating and Drinking for Safe Swallow: Intermittent Supervision Foods to Avoid: Tough, difficult to chew solids, too large pieces of food, dry, crunchy textures. Swallowing Recommended Treatments: Compens. Strategy Educat. Recommendation for Speech: Inpatient Speech Therapy Comment: Patient presents with a mild oral dysphagia secondary to edentulous state. Patient stated that he can eat anything however during the assessment was using strategy of sipping liquids to clear residual of solids remaining in mouth after swallowing, and stated a cracker would be too difficult to chew. Patient tolerated thin liquids with no clinical signs of aspiration. During eval, patient was noted to be SOB after coughing, with coughing behavior not associated with swallowing. Recommend DOWNGRADE diet to Chopped Advanced (NDD3) for ease of mastication, continue with thin liquids and pills whole with liquid. WINDING OPERATOR to f/u X1-[address] for toleration[address] , RD, RN notified of recommendation by secure text. Frequency/Duration: Date Range for Service Req: Timeline to reassess: Human Resource Statistician Clinican/Clinical Fellow: No Supervisory Statement: I have reviewed and agree with the student/clinical fellow's documentation: N/A Speech Language Pathologist: Gillian Simon M.A., [facility]-WINDING OPERATOR
--- NOTE | 2024-04-14 12:18 | MHC.CLN ---
PT IS MODERATELY MALNOURISHED-NON SEVERE MALNUTRITION IN THE CONTEXT OF BEHAVIOR, SOCIAL OR ENVIRONMENTAL PT WITH MILDLY DEPLETED SUBCUTANEOUS FAT AND MUSCLE MASS WITH BMI 15.6 AND 6% NON-SIGNIFICANT WT LOSS X1 YEAR WITH CHRONIC POOR PO INTAKE DIET RX: CARDIAC CHOPPED-LONGWALL HEADGATE OPERATOR WORKING WITH PT FOR APPROPRIATE DIET CONSISTENCY PT RECEIVING ENSURE BID TO INCREASE KCALS SUPP PROVIDE 700KCALS, 40G PROTEIN WITH 100% ACCEPTANCE MONITOR PO INTAKE AND ENCOURAGE SUPPLEMENTS SEE ALSO FULL CLINICAL NUTRITION ASSESSMENT
--- NOTE | 2024-04-14 12:24 | HO.PM.IMPN ---
Subjective Subjective Date of Service: 04/14/24 Interval History: Seen and examined this morning Follow-up for bradycardia Overnight had episode of shortness of breath with associated wheezing, received antibiotics, Solu-Medrol -chest x-ray showing possible early infiltrate Patient with persistent shortness of breath this morning Review of Systems Review of Systems: Yes all other systems are reviewed and are negative Constitutional Constitutional: Denies chills and Denies fever(s) ENT Ears, Nose, Mouth, and Throat: Denies dizziness Cardiovascular Cardiovascular: Denies chest pain, Denies palpitations and Reports dyspnea Respiratory Respiratory: Denies cough and Reports dyspnea Gastrointestinal Gastrointestinal: Denies abdominal pain Neurologic Neurologic: Denies dizziness Endocrine Endocrine: Denies palpitations Physical Exam Vital Signs: Vital Signs: Last Vital Signs Temp 97.2 F 04/14/24 11:35 Pulse 94 04/14/24 11:35 Resp 19 04/14/24 11:35 BP 141/74 H 04/14/24 11:35 Pulse Ox 93 04/14/24 11:35 O2 Del Method Nasal Cannula 04/14/24 11:35 O2 Flow Rate 1 04/14/24 11:35 BMI result Body Mass Index 15.6 Const: Other: poor hygiene General: cooperative, no acute distress, alert and awake Nutritional Appearance: thin Orientation/consciousness: patient oriented x3 Resp: Other: diminished breath sounds Effort & Inspection: normal respiratory effort and able to speak in complete sentences Cardio: Rate: regular rate GI: Inspection: No distended Palpation (GI): Soft to palpation and nontender Neuro: General: patient oriented x3 Extrem: General: Yes no pedal edema Psych: Affect: normal affect Objective Data Active Medications Acetaminophen (Acetaminophen 325 Mg Tablet) 975 mg PO Q6H PRN PRN Reason: Pain, Mild (Pain Scale 1-3), fever or headache Albuterol Sulfate (Albuterol Sulfate (0.083%) 2.5 Mg/3 Ml Vial.Neb) 2.5 mg INHALE Q2H PRN PRN Reason: Shortness of Breath/Wheezing Albuterol/Ipratropium (Albuterol/Iprat 2.5/0.5mg 3 Ml Ampul.Neb) 3 ml INHALE RQ4H WHILE AWAKE [facility] Last Admin: 04/14/24 11:31 Dose: 3 ml Documented By: TAHMINA Aspirin (Aspirin Enteric Coated 81 Mg Tablet.) 81 mg PO DAILY [facility] Last Admin: 04/14/24 08:40 Dose: 81 mg Documented By: IFEANYI Atorvastatin Calcium (Atorvastatin Calcium 20 Mg Tablet) 20 mg PO DAILY [facility] Last Admin: 04/14/24 08:40 Dose: 20 mg Documented By: IFEANYI Fluticasone/Vilanterol (Fluticasone/Vilanterol 200/25 Blst.W.Dev) 1 puff INHALE RDAILY [facility] Last Admin: 04/14/24 07:55 Dose: 1 puff Documented By: MARTIN Folic Acid (Folic Acid 1 Mg Tablet) 1 mg PO DAILY [facility] Last Admin: 04/14/24 08:40 Dose: 1 mg Documented By: IFEANYI Heparin Sodium (Porcine) (Heparin Sodium,Porcine 5,000 Unit/Ml Vial) 5,000 unit SUBCUT Q8H [facility] Last Admin: 04/14/24 08:40 Dose: 5,000 unit Documented By: IFEANYI Thiamine HCl 100 mg/ Sodium (Chloride) 101 mls @ 202 mls/hr IV DAILY [facility] Last Infusion: 04/13/24 10:21 Dose: Infused Documented By: MANJIT Doxycycline Hyclate 100 mg/ (Sodium Chloride) 250 mls @ 166.67 mls/hr IV Q12H [facility] Methylprednisolone Sodium Succinate (Methylprednisolone Sod Succ 40 Mg/Ml Vial) 40 mg IVPUSH Q12H [facility] Last Admin: 04/14/24 08:40 Dose: 40 mg Documented By: IFEANYI Multivitamins/Vitamin C (Multivitamin Tablet) 1 tab PO DAILY [facility] Last Admin: 04/14/24 08:40 Dose: 1 tab Documented By: IFEANYI Sodium Chloride (0.9 % Sodium Chloride Flush 3 Ml Syringe) 3 ml IVFLUSH QSHIFT [facility] Last Admin: 04/14/24 09:04 Dose: 3 ml Documented By: IFEANYI Vitamin D (Cholecalciferol (Vitamin D3) 25 Mcg Tablet) 25 mcg PO DAILY [facility] Last Admin: 04/14/24 08:41 Dose: 25 mcg Documented By: IFEANYI Labs 04/14/24 07:38 04/14/24 07:38 Labs: Laboratory Results - last 24 hr 04/14/24 04/14/24 04/14/24 07:38 07:42 07:52 MCV 98.4 H MCH 33.8 H MCHC 34.3 RDW 14.2 Plt Count 361 MPV 9.6 Immature Gran % (Auto) 0.7 H Neut % (Auto) 94.4 H Lymph % (Auto) 2.4 L [place] % (Auto) 2.1 Eos % (Auto) 0.2 Baso % (Auto) 0.2 Lymph # (Auto) 0.3 L [place] # (Auto) 0.3 Eos # (Auto) 0.0 Baso # (Auto) 0.0 Abs Immat Gran (auto) 0.09 H Absolute Neuts (auto) 11.5 H Absolute Nucleated RBC 0.000 Nucleated RBC % (auto) 0.0 Smear Tech's Comments VERIFIED VBG pH 7.39 VBG pCO2 43 VBG pO2 144 VBG HCO3 26 VBG O2 Saturation 99.0 VBG Base Excess 1.5 Anion Gap 16 Estim Creat Clear Calc 62.7 Estimated GFR > 60 Random Glucose 213 H Lactic Acid 1.6 Calcium 8.2 L Magnesium 2.4 Total Bilirubin 0.7 AST 15 ALT 5 Alkaline Phosphatase 101 Troponin I High Sens 25.7 B-Natriuretic Peptide 1048 H Total Protein 5.9 L Albumin 3.0 L Digoxin 1.2 Microbiology Microbiology Results: Microbiology 04/13/24 Unknown Urine Culture - Preliminary Urine clean catch - Clean Catch Midstream Culture in progress. Assessment and Plan (1) Bradyarrhythmia: Status: Acute (2) Atrial fibrillation with slow ventricular response: Status: Acute Plan Noble Valencia is a 68 y/o man admitted with: Syncope + bigeminy/multiple PVCs + bradycardia. orthostatic blood pressure negative trop negative continue to hold digoxin and metoprolol echo with recovered EF cardiology following - no clear indication for pacemaker at this time. Due to ongoing alcoholism, poor nutritional status recommend conservative/noninvasive management Acute COPD exacerbation/chronic respiratory failure/early pneumonia per pulm notes supposed to use 2L o2 continuous, only uses as needed at home sob overnight - CXR with possible developing infiltrate. no sepsis. white count increased due to steroids Started on IV Solu-Medrol 04/14 Due to significant ectopy/hypokalemia will change azithromycin to doxycycline prn breathing treatments hypokalemia replace and follow levels Hypomagnesemia. resolved with replacement TYESHA. renal function improving due to poor p.o. intake + diuretic use + alcohol use resolved HFrEF (30-35%). No evidence of decompensation. prn Furosemide held due to TYESHA - will resume CAD. No chest pain. Continue aspirin and statin. Atrial fibrillation. Digoxin and metoprolol on hold for bradycardia Continue aspirin. Not on anticoagulation ? due to etoh use Vitamin-D deficiency. Continue vitamin-D supplementation. Alcohol dependence CIWA low, no evidence of etoh withdrawal at this time Thiamine, folic acid and multivitamins moderate Protein calorie malnutrition. BMI 14.3 kg/m2. Dietary consult. dietary supplements Code status: Full DVT prophylaxis: Heparin goals of care discussion with patient -currently would like to remain full code. Also lenghty discussion re: overall poor health/poor prognosis due to ongoing alcoholism/tobacco use/malnutrition and current active medical issues Healthcare proxy/daughter over the phone. ongoing inpatient stay for syncope and hypomagnesemia treatment with continuous cardiac monitoring, magnesium supplementation and close vital signs monitoring as well as subspecialty evaluation. Quality Stroke Does the patient have a stroke diagnosis?: No VTE Prior VTE?: No VTE Risk Level:: Medical - moderate - high VTE Device Contraindication: Treatment Not Indicated VTE Drug Contraindication: N/A - Med Ordered
--- NOTE | 2024-04-14 13:12 | MHC.CM.PN ---
EMR reviewed and per MD rounds, pt is not medically cleared for discharge due to ongoing management of hypomagnesium.
[2024-04-14] MEDS: Thiamine HCL 100 MG in 0.9 % Sodium Chloride 100 ML 202 MG IV (13:25)
[2024-04-14] MEDS: Doxycycline Hyclate 100 MG in 0.9 % Sodium Chloride 250 ML 166.67 MG IV ×2 (13:25→23:10)
[2024-04-14 13:54] LABS: Potassium 3.2 mmol/L (3.3-5.1)
[2024-04-14] MEDS: Potassium Chloride Packet 20 MEQ PACKET 40 MEQ PO ×2 (15:53→23:10)
[2024-04-14] MEDS: guaiFENesin DM 600/30 1 TAB TAB.ER.12H PO (23:10)
[2024-04-15] VITALS (15 sets, daily range): BP systolic 106–146; BP diastolic 57–77; PULSE 73–120; RESP 16–28; TEMP 36.1–37; O2SAT 92–100
[2024-04-15] MEDS: 0.9 % Sodium Chloride Flush 3 ML SYRINGE IVFLUSH ×4 (00:16→19:33)
[2024-04-15] MEDS: Heparin Sodium,Porcine 5,000 UNIT/ML VIAL 5000 UNIT SUBCUT ×3 (00:17→15:44)
[2024-04-15] MEDS: Albuterol Sulfate (0.083%) 2.5 MG/3 ML VIAL.NEB INHALE (00:49)
[2024-04-15] MEDS: Morphine Sulfate 4 MG/ML CARTRIDGE IVPUSH (01:49)
--- NOTE | 2024-04-15 01:52 | PM.EVENT ---
Event Note Date of Service: 04/15/24 Event Note: Contacted to notify patient has worsening cough and shortness of breath. O2 sats normal on 3-5L/min OxyMask. On evaluation, patient do not appear to be in respiratory distress (he actually looks much better than this morning). Lungs with decreased breath sounds and mild expiratory wheezes without crackles or rhonchi. We will continue supplemental oxygen, breathing treatment, IV morphine and IV antibiotic therapy. I am suspecting patient could be aspirating. Will obtain swallow evaluation and change IV antibiotics to Zosyn. Time Spent With Patient Time: Total time managing care of this patient today ____ minutes.
[2024-04-15] MEDS: Piperacillin Sodium/Tazobactam 3.375 GM in 0.9 % Sodium Chloride 50 ML IV ×2 (02:03→08:49)
[2024-04-15] MEDS: methylPREDNISolone Sod Succ 125 MG/2 ML VIAL 80 MG IVPUSH (02:04)
[2024-04-15 07:54] LABS: Hematocrit 36.6 % (42.0-52.0); Hemoglobin 12.2 g/dl (14.0-18.0); Mean Corpuscular HGB Conc 33.3 g/dl (31.0-36.0); Mean Corpuscular Hemoglobin 33.4 pg (27.0-33.0); Mean Corpuscular Volume 100.3 fL (80.0-98.0); Mean Platelet Volume 10.2 fL (9.4-12.4); Platelet Count 382 X10*3/uL (160-400); Red Blood Count 3.65 X10*6/uL (4.60-5.80); Red Cell Distribution Width 14.5 % (11.0-16.0); White Blood Count 18.9 X10*3/uL (4.8-10.8)
[2024-04-15 08:02] LABS: Anion Gap 10 (12-20); Blood Urea Nitrogen 16 mg/dL (9-16); Calcium 9.1 mg/dL (8.4-10.2); Carbon Dioxide 25 mmol/L (22-29); Chloride 109 mmol/L (96-108); Creatinine Clr Calc Pharmacy 62.7; Estimated Glomerular Filt Rate > 60; Glucose Random 177 mg/dL (60-115); Magnesium 2.4 mg/dL (1.6-2.6); Potassium 4.9 mmol/L (3.3-5.1); Sodium 139 mmol/L (135-145)
[2024-04-15] MEDS: Albuterol/Iprat 2.5/0.5MG 3 ML AMPUL.NEB INHALE ×4 (08:02→20:04)
[2024-04-15] MEDS: Fluticasone/Vilanterol 200/25 BLST.W.DEV 1 PUFF INHALE (08:02)
[2024-04-15] MEDS: Thiamine HCL 100 MG in 0.9 % Sodium Chloride 100 ML 202 MG IV (08:49)
[2024-04-15] MEDS: Cholecalciferol (Vitamin D3) 25 MCG TABLET PO (08:50)
[2024-04-15] MEDS: Folic Acid 1 MG TABLET PO (08:50)
[2024-04-15] MEDS: Atorvastatin Calcium 20 MG TABLET PO (08:50)
[2024-04-15] MEDS: guaiFENesin DM 600/30 1 TAB TAB.ER.12H PO ×2 (08:50→19:32)
[2024-04-15] MEDS: Aspirin Enteric Coated 81 MG TABLET.DR PO (08:50)
[2024-04-15] MEDS: Multivitamin TABLET 1 TAB PO (08:50)
[2024-04-15] MEDS: methylPREDNISolone Sod Succ 40 MG/ML VIAL IVPUSH ×3 (08:50→23:30)
--- NOTE | 2024-04-15 10:56 | HO.PM.IMPN ---
Subjective Subjective Date of Service: 04/15/24 Interval History: seen and examined this morning follow up for respiratory failure, bradycardia Heart rate improved Shortness of breath again overnight, remains dyspneic No dizziness, no chest pain Review of Systems Review of Systems: Yes all other systems are reviewed and are negative Constitutional Constitutional: Denies chills and Denies fever(s) Cardiovascular Cardiovascular: Denies chest pain, Denies palpitations and Reports dyspnea Respiratory Respiratory: Denies cough and Reports dyspnea Gastrointestinal Gastrointestinal: Denies abdominal pain, Denies nausea and Denies vomiting Endocrine Endocrine: Denies palpitations Physical Exam Vital Signs: Vital Signs: Last Vital Signs Temp 97.9 F 04/15/24 07:15 Pulse 73 04/15/24 08:03 Resp 22 H 04/15/24 08:03 BP 106/69 04/15/24 07:15 Pulse Ox 96 04/15/24 07:15 O2 Del Method Nasal Cannula 04/15/24 07:15 O2 Flow Rate 1 04/15/24 07:15 BMI result Body Mass Index 15.6 Const: Other: ill appearing General: cooperative, no acute distress, alert and awake Nutritional Appearance: cachectic and thin Orientation/consciousness: patient oriented x3 Resp: Other: diminished breath sounds, b/l wheeze Effort & Inspection: normal respiratory effort, able to speak in complete sentences and tachypneic Cardio: Rate: regular rate GI: Inspection: No distended Palpation (GI): Soft to palpation and nontender Neuro: General: patient oriented x3, moves all extremities and CN's II-XI intact bilaterally Extrem: General: Yes no pedal edema Psych: Affect: normal affect Objective Data Active Medications Acetaminophen (Acetaminophen 325 Mg Tablet) 975 mg PO Q6H PRN PRN Reason: Pain, Mild (Pain Scale 1-3), fever or headache Albuterol Sulfate (Albuterol Sulfate (0.083%) 2.5 Mg/3 Ml Vial.Neb) 2.5 mg INHALE Q2H PRN PRN Reason: Shortness of Breath/Wheezing Last Admin: 04/15/24 00:49 Dose: 2.5 mg Documented By: MICHELLE Albuterol/Ipratropium (Albuterol/Iprat 2.5/0.5mg 3 Ml Ampul.Neb) 3 ml INHALE RQ4H WHILE AWAKE [facility] Last Admin: 04/15/24 08:02 Dose: 3 ml Documented By: VAIBHAV Aspirin (Aspirin Enteric Coated 81 Mg Tablet.Dr) 81 mg PO DAILY [facility] Last Admin: 04/15/24 08:50 Dose: 81 mg Documented By: MARIAELENA Atorvastatin Calcium (Atorvastatin Calcium 20 Mg Tablet) 20 mg PO DAILY [facility] Last Admin: 04/15/24 08:50 Dose: 20 mg Documented By: MARIAELENA Fluticasone/Vilanterol (Fluticasone/Vilanterol 200/25 Blst.W.Dev) 1 puff INHALE RDAILY [facility] Last Admin: 04/15/24 08:02 Dose: 1 puff Documented By: VAIBHAV Folic Acid (Folic Acid 1 Mg Tablet) 1 mg PO DAILY [facility] Last Admin: 04/15/24 08:50 Dose: 1 mg Documented By: MARIAELENA Furosemide (Furosemide 20 Mg Tablet) 20 mg PO DAILY PRN; Protocol PRN Reason: for edema Guaifenesin/Dextromethorphan (Guaifenesin Dm 600/30 1 Tab Tab.Er.12h) 1 tab PO BID [facility] Last Admin: 04/15/24 08:50 Dose: 1 tab Documented By: MARIAELENA Heparin Sodium (Porcine) (Heparin Sodium,Porcine 5,000 Unit/Ml Vial) 5,000 unit SUBCUT Q8H [facility] Last Admin: 04/15/24 08:50 Dose: 5,000 unit Documented By: MARIAELENA Piperacillin Sod/Tazobactam (Sod 3.375 gm/ Sodium Chloride) 50 mls @ 100 mls/hr IV Q6H [facility] Last Infusion: 04/15/24 10:07 Dose: Infused Documented By: MARIAELENA Methylprednisolone Sodium Succinate (Methylprednisolone Sod Succ 40 Mg/Ml Vial) 40 mg IVPUSH Q12H [facility] Last Admin: 04/15/24 08:50 Dose: 40 mg Documented By: MARIAELENA Multivitamins/Vitamin C (Multivitamin Tablet) 1 tab PO DAILY [facility] Last Admin: 04/15/24 08:50 Dose: 1 tab Documented By: MARIAELENA Sodium Chloride (0.9 % Sodium Chloride Flush 3 Ml Syringe) 3 ml IVFLUSH QSHIFT [facility] Last Admin: 04/15/24 08:50 Dose: 3 ml Documented By: MARIAELENA Thiamine HCl (Thiamine Hcl 100 Mg Tablet) 100 mg PO DAILY [facility] Vitamin D (Cholecalciferol (Vitamin D3) 25 Mcg Tablet) 25 mcg PO DAILY [facility] Last Admin: 04/15/24 08:50 Dose: 25 mcg Documented By: MARIAELENA Labs 04/15/24 06:14 04/15/24 06:14 Labs: Laboratory Results - last 24 hr 04/15/24 06:14 MCV 100.3 H MCH 33.4 H MCHC 33.3 RDW 14.5 Plt Count 382 MPV 10.2 Absolute Nucleated RBC 0.000 Nucleated RBC % (auto) 0.0 Hold Purple Top SEE NOTE Anion Gap 10 L Estim Creat Clear Calc 62.7 Estimated GFR > 60 Random Glucose 177 H Calcium 9.1 D Magnesium 2.4 Microbiology Microbiology Results: Microbiology 04/13/24 Unknown Urine Culture - Final Urine clean catch - Clean Catch Midstream Assessment and Plan (1) Bradyarrhythmia: Status: Acute (2) Respiratory failure with hypoxia: Status: Acute (3) COPD (chronic obstructive pulmonary disease): Status: Acute Plan Noble Valencia is a 68 y/o man admitted with: Syncope + bigeminy/multiple PVCs + bradycardia orthostatic blood pressure negative trop negative continue to hold digoxin and metoprolol echo with recovered EF 55-60% (previous 30-30% in November 2023) with moderately decreased right ventricular systolic function, moderate tricuspid regurgitation, moderate pulmonary hypertension cardiology following - no clear indication for pacemaker at this time. Due to ongoing alcoholism, poor nutritional status recommend conservative/noninvasive management Acute COPD exacerbation/chronic respiratory failure/pneumonia possibly due to aspiration per pulm notes supposed to use 2L o2 continuous, only uses as needed at home sob overnight - CXR with possible developing infiltrate. no sepsis. white count increased due to steroids continue IV Solu-Medrol antibiotics escalated to zosyn due to concern over possible aspiration Continue breathing treatments pulmonary evaluation pending seen by speech and downgraded to NDD3 diet HFpEF/right heart failure No evidence of decompensation. prn Furosemide held due to TYESHA - will resume hypokalemia Improved with replacement Hypomagnesemia. resolved with replacement TYESHA. renal function improving due to poor p.o. intake + diuretic use + alcohol use resolved CAD. No chest pain. Continue aspirin and statin. Atrial fibrillation. Digoxin and metoprolol on hold for bradycardia Continue aspirin. Not on anticoagulation ? due to etoh use Vitamin-D deficiency. Continue vitamin-D supplementation. Alcohol dependence CIWA low, no evidence of etoh withdrawal at this time Thiamine, folic acid and multivitamins moderate Protein calorie malnutrition. BMI 14.3 kg/m2. Dietary consult. dietary supplements Code status: Full DVT prophylaxis: Heparin goals of care discussion with patient and lengthy discussion re: overall poor health/poor prognosis due to ongoing alcoholism/tobacco use/malnutrition and current active medical issues Healthcare proxy/daughter over the phone -->update 04/15 patient has elected to change code status to DNR/DNI, molst form filled out ongoing inpatient stay for respiratory failure, continuous cardiac monitoring, magnesium supplementation and close vital signs monitoring as well as subspecialty evaluation. Quality Stroke Does the patient have a stroke diagnosis?: No VTE Prior VTE?: No VTE Risk Level:: Medical - moderate - high VTE Device Contraindication: Treatment Not Indicated VTE Drug Contraindication: N/A - Med Ordered
--- NOTE | 2024-04-15 11:35 | P.CONPL_ITS ---
History of Present Illness History of Present Illness Consult date: 04/15/24 Reason for consult: COPD and pneumonia Chief complaint: Syncope,bradycardia Narrative: THIS GENTLEMAN IS 68 YEARS OLD MALE, PREVIOUSLY KNOWN TO HAVE ADVANCED CHRONIC OBSTRUCTIVE PULMONARY DISEASE, CHRONIC CONGESTIVE HEART FAILURE, CHRONIC ATRIAL FIBRILLATION, HE LIVES ALONE, CONTINUES TO SMOKE, ALSO HISTORY OF ALCOHOL ABUSE, PRESENTS TO THE EMERGENCY ROOM WITH COUGH INCREASED SHORTNESS OF BREATH GENERALIZED WEAKNESS AND HE WAS FOUND TO BE ON THE FLOOR AT HOME, VERY VAGUE HISTORIAN AND DID NOT KNOW THE DETAILS OF HOW HE HAD FALLEN DOWN. WORKUP IN THE EMERGENCY ROOM HAS NOT SHOWN ANY SIGNIFICANT INTRACRANIAL ABNORMALITY. HIS CHEST X-RAY DOES SHOW INFILTRATE IN THE LEFT MID LUNG, BUT HE HAS HAD NO FEVER OR CHILLS. HE DOES HAVE INCREASED SHORTNESS OF BREATH THAN USUAL AND THE STRIKING FINDING IS THAT HE IS GENERALLY QUITE WEAK, AND DEBILITATED. FOR HIS THE ONGOING PULMONARY MANAGEMENT HE IS SUPPOSED TO BE ON BREO 200-251 INHALATION DAILY, ALBUTEROL HFA TO BE USE P.R.N. AND HE IS SUPPOSED TO BE ON O2 2 L/MINUTE CONTINUOUSLY. THE PATIENT IS RELATIVELY SLOW IN ANSWERING QUESTION AND SOMEWHAT CONFUSED AND NOT ABLE TO GIVE ANY DETAILS. Review of Systems 2 Review of Systems: Yes Unobtainable due to mental status and Other (HE IS NOT ABLE TO GIVE MUCH DETAILS AND MAIN, COMPLAINT IS GENERAL WEAKNESS) [facility] Past Medical History Medical History (Updated 04/15/24 @ 11:47 by Shakira Galvez MD) Pneumonia Respiratory failure with hypoxia History of CA (myocardial infarction) History of seizure due to alcohol withdrawal Atrial fibrillation with slow ventricular response Hypoxemia CAP (community acquired pneumonia) Chronic respiratory failure Atherosclerotic cardiovascular disease CHF (congestive heart failure) CAD (coronary artery disease) History of ischemic cardiomyopathy Tobacco abuse Alcohol abuse Hypercholesteremia COPD (chronic obstructive pulmonary disease) Surgical History Surgical History History of coronary artery bypass graft x 3 (~2012) History of surgery on lower extremity (~2018) Social History Social History Household Members: Family Household Members Other:: CHILDREN,GRANDCHILDREN Housing: House Do you presently have visiting nurse or other home services: No Alcohol intake: current Alcohol intake frequency: 0-2 drinks per day Alcohol type: hard liquor Patient Tobacco Use Status: Current everyday Tobacco user Tobacco use type: Cigarette Cigarette Packs Per Day: 0.5 Cigarettes Per Day: 7 Years Smoked: 40+ e-Cigarette/Vaping Use: Never Used Second Hand Smoke Exposure: No Advance Directives Date on File: 11/08/20 service: No Current occupational status: retired Meds Allergies Allergy/AdvReac Type Severity Reaction Status Date / Time No Known Allergies Allergy Verified 04/12/24 16:59 [No Known Allergies*] Active Medications: Current Medications Acetaminophen (Acetaminophen 325 Mg Tablet) 975 mg PO Q6H PRN PRN Reason: Pain, Mild (Pain Scale 1-3), fever or headache Albuterol Sulfate (Albuterol Sulfate (0.083%) 2.5 Mg/3 Ml Vial.Neb) 2.5 mg INHALE Q2H PRN PRN Reason: Shortness of Breath/Wheezing Last Admin: 04/15/24 00:49 Dose: 2.5 mg Albuterol/Ipratropium (Albuterol/Iprat 2.5/0.5mg 3 Ml Ampul.Neb) 3 ml INHALE RQ4H WHILE AWAKE [facility] Last Admin: 04/15/24 11:25 Dose: 3 ml Aspirin (Aspirin Enteric Coated 81 Mg Tablet.Dr) [address] [facility] Last Admin: 04/15/24 08:50 Dose: 81 mg Atorvastatin Calcium (Atorvastatin Calcium 20 Mg Tablet) [address] [facility] Last Admin: 04/15/24 08:50 Dose: 20 mg Fluticasone/Vilanterol (Fluticasone/Vilanterol 200/25 Blst.W.Dev) [address] [facility] Last Admin: 04/15/24 08:02 Dose: 1 puff Folic Acid (Folic Acid 1 Mg Tablet) [address] [facility] Last Admin: 04/15/24 08:50 Dose: 1 mg Furosemide (Furosemide 20 Mg Tablet) 20 mg PO DAILY PRN; Protocol PRN Reason: for edema Guaifenesin/Dextromethorphan (Guaifenesin Dm 600/30 1 Tab Tab.Er.12h) [address] [facility] Last Admin: 04/15/24 08:50 Dose: 1 tab Heparin Sodium (Porcine) (Heparin Sodium,Porcine 5,000 Unit/Ml Vial) 5,[address] [facility] Last Admin: 04/15/24 08:50 Dose: 5,000 unit Piperacillin Sod/Tazobactam (Sod 3.375 gm/ Sodium Chloride) 50 mls @ 100 mls/hr IV Q6H [facility] Last Infusion: 04/15/24 10:07 Dose: Infused Methylprednisolone Sodium Succinate (Methylprednisolone Sod Succ 40 Mg/Ml Vial) [address] [facility] Last Admin: 04/15/24 08:50 Dose: 40 mg Multivitamins/Vitamin C (Multivitamin Tablet) [address] [facility] Last Admin: 04/15/24 08:50 Dose: 1 tab Sodium Chloride (0.9 % Sodium Chloride Flush 3 Ml Syringe) [address] [facility] Last Admin: 04/15/24 08:50 Dose: 3 ml Thiamine HCl (Thiamine Hcl 100 Mg Tablet) [address] [facility] Vitamin D (Cholecalciferol (Vitamin D3) 25 Mcg Tablet) [address] [facility] Last Admin: 04/15/24 08:50 Dose: 25 mcg Home Medications ?Medication ?Instructions ?Recorded ?Confirmed ?Last Taken ?Type aspirin 81 mg tablet,delayed 81 mg PO DAILY 08/12/20 04/12/24 04/12/24 History release thiamine HCl (vitamin B1) 100 mg 100 mg PO DAILY 11/05/20 04/12/24 04/12/24 History tablet (Vitamin B-1) cholecalciferol (vitamin D3) 25 25 mcg PO DAILY 11/07/20 04/12/24 04/12/24 History mcg (1,000 unit) capsule (Vitamin D3) Physical Exam 2 Vital Signs: Vital Signs: Last Vital Signs Temp 98.6 F 04/15/24 11:32 Pulse 113 H 04/15/24 11:32 Resp 22 H 04/15/24 11:32 BP 135/77 04/15/24 11:32 Pulse Ox 93 04/15/24 11:32 O2 Del Method Nasal Cannula 04/15/24 11:32 O2 Flow Rate 3 04/15/24 11:32 BMI result Body Mass Index 15.6 CHRONICALLY DEBILITATED, AND CHRONICALLY SICK-LOOKING, MODERATELY TACHYPNEIC, BUT NOT IN ACUTE DISTRESS Const: General: no acute distress, alert and awake (BUT NOT VERY CONVERSIVE) HEENT: Head: Yes normal to inspection General nose exam: No nasal polyps present and No nasal discharge present Face and sinus: Yes sinuses nontender Mouth: oropharynx normal Throat: Yes posterior oropharynx normal Eyes: General: appearance normal, both eyes and all related structures Neck: Neck: Yes normal visual inspection, Yes no lymphadenopathy, Yes trachea midline and Yes no JVD Thyroid: Thyroid normal Chest: Chest palpation & inspection: normal inspection of the chest (HAS MIDLINE SURGICAL SCAR FROM PREVIOUS CARDIAC SURGERY) and no tenderness Resp: Other: PERCUSSION NOTE IS HYPER-RESONANT BREATH SOUNDS ARE VERY DISTANT BUT EQUAL ON BOTH SIDES, ONLY A FEW CRACKLES NOTED OVER THE LEFT MID CHEST AND BASE. NO WHEEZES. Cardio: Palpation: normal PMI Rate: regular rate Rhythm: regular rhythm Heart sounds: no gallops and no murmurs GI: Palpation (GI): Soft to palpation, nontender, No hepatosplenomegaly present and no masses Auscultation: normal bowel sounds Back/Spine/Pelvis: Other: NOT EXAMINED Skin: General skin exam: no rashes or lesions noted Neuro: General: No gait normal (NOT TESTED) and no focal motor deficits (BUT GENERALLY VERY WEAK) Extrem: General: Yes normal to inspection, Yes no clubbing, cyanosis or edema and Yes no calf tenderness Psych: Appearance: disheveled Speech and movement: Normal speech and movement present Results Laboratory Findings 04/15/24 06:14 04/15/24 06:14 ABG, PT/INR, D-dimer: PT/INR, D-dimer PT 16.5 SEC (11.1-13.3) H 04/12/24 17:53 INR 1.4 (0.9-1.1) H 04/12/24 17:53 Abnormal lab findings: Abnormal Labs 04/12/24 04/13/24 04/13/24 17:53 04:59 05:00 WBC RBC 3.93 L 3.75 L Hgb 13.2 L 12.6 L Hct 38.6 L 36.9 L MCV 98.2 H 98.4 H MCH 33.6 H 33.6 H Plt Count 427 H D Immature Gran % (Auto) 0.7 H 0.9 H Neut % (Auto) 74.1 H Lymph % (Auto) 11.4 L 11.6 L [place] % (Auto) 11.8 H 13.9 H Lymph # (Auto) 1.1 L [place] # (Auto) 1.5 H Abs Immat Gran (auto) 0.07 H 0.09 H Absolute Neuts (auto) PT 16.5 H INR 1.4 H Potassium 2.6 L* D Chloride Anion Gap BUN 26 H 25 H Random Glucose Calcium 8.0 L D 8.1 L Magnesium 1.5 L Total Bilirubin 1.3 H Total Creatine Kinase 27 L B-Natriuretic Peptide 555 H Total Protein 6.1 L Albumin 3.2 L 3.1 L Lipase < 4 L Ur Leukocyte Esterase Urine WBC 04/13/24 04/14/24 04/14/24 09:44 07:38 13:04 WBC 12.1 H RBC 3.67 L Hgb 12.4 L Hct 36.1 L MCV 98.4 H MCH 33.8 H Plt Count Immature Gran % (Auto) 0.7 H Neut % (Auto) 94.4 H Lymph % (Auto) 2.4 L [place] % (Auto) Lymph # (Auto) 0.3 L [place] # (Auto) Abs Immat Gran (auto) 0.09 H Absolute Neuts (auto) 11.5 H PT INR Potassium 2.7 L* D 3.2 L Chloride Anion Gap BUN 18 H Random Glucose 213 H Calcium 8.2 L Magnesium Total Bilirubin Total Creatine Kinase B-Natriuretic Peptide 1048 H Total Protein 5.9 L Albumin 3.0 L Lipase Ur Leukocyte Esterase Small (1+) H Urine WBC 11-20 H 04/15/24 06:14 WBC 18.9 H RBC 3.65 L Hgb 12.2 L Hct 36.6 L MCV 100.3 H MCH 33.4 H Plt Count Immature Gran % (Auto) Neut % (Auto) Lymph % (Auto) [place] % (Auto) Lymph # (Auto) [place] # (Auto) Abs Immat Gran (auto) Absolute Neuts (auto) PT INR Potassium Chloride 109 H Anion Gap 10 L BUN Random Glucose 177 H Calcium Magnesium Total Bilirubin Total Creatine Kinase B-Natriuretic Peptide Total Protein Albumin Lipase Ur Leukocyte Esterase Urine WBC Microbiology: Microbiology 04/13/24 Unknown Urine clean catch - Clean Catch Midstream Urine Culture - Final Diagnostic Findings Chest x-ray: report reviewed and image reviewed Assessment and Plan (1) COPD (chronic obstructive pulmonary disease): Qualifiers: COPD type: COPD with acute lower respiratory infection Qualified Code(s): J44.0 - Chronic obstructive pulmonary disease with (acute) lower respiratory infection Status: Acute (2) Alcohol abuse: Status: Acute (3) Respiratory failure with hypoxia: Status: Acute (4) Pneumonia: Status: Acute Plan THIS CHRONICALLY SICK, WITH ONGOING SMOKING AND ALCOHOL ABUSE, HAD INCIDENCE OF CHANGE IN MENTAL STATUS AND LYING ON THE FLOOR. MOST LIKELY HAS ASPIRATION PNEUMONIA COMPLICATING HIS ADVANCED CHRONIC OBSTRUCTIVE PULMONARY DISEASE. HE HAS CHRONIC RESPIRATORY FAILURE WITH HYPOXEMIA BUT ABGS DO NOT SHOW CO2 RETENTION. PATIENT HAS EXPRESSED HIS WISHES NOT TO BE INTUBATED OR RESUSCITATED. I HAVE REVIEWED AND AGREE WITH THE TREATMENT PLAN . THANK YOU FOR ASKING ME TO SEE THIS PATIENT. Procedures Date of Service Date of Service: 04/15/24
[2024-04-15 12:00] LABS: B Type Natriuretic Peptide 843 pg/mL (<100)
[2024-04-15] MEDS: Piperacillin Sodium/Tazobactam 4.5 GM in 0.9 % Sodium Chloride 100 ML IV ×2 (12:24→19:32)
--- NOTE | 2024-04-15 14:13 | P.PNCA_ITS ---
Subjective Subjective Date of Service: 04/15/24 Interval history: Seen examined at bedside. Telemetry showing AFib with RVR. He is saying he does not feel like eating anything. Physical Exam Vital Signs: Last Vital Signs Temp 98.6 F 04/15/24 11:32 Pulse 113 H 04/15/24 11:32 Resp 22 H 04/15/24 11:32 BP 135/77 04/15/24 11:32 Pulse Ox 93 04/15/24 11:32 O2 Del Method Nasal Cannula 04/15/24 11:32 O2 Flow Rate 3 04/15/24 11:32 BMI result Body Mass Index 15.6 GENERAL APPEARANCE: Cachectic. NECK: no carotid bruit, no jugular venous distention. SKIN: no suspicious lesions, warm and dry. HEART: no murmurs, irregular rate and rhythm. LUNGS: clear to auscultation bilaterally. ABDOMEN: soft, nontender. EXTREMITIES: no edema. PERIPHERAL PULSES: equal. NEUROLOGIC: No gross deficits, AAO X 3 Objective Labs and Meds 04/15/24 06:14 04/15/24 06:14 Lab results: Laboratory Results - last 24 hr 04/15/24 04/15/24 06:14 11:25 WBC 18.9 H RBC 3.65 L Hgb 12.2 L Hct 36.6 L MCV 100.3 H MCH 33.4 H MCHC 33.3 RDW 14.5 Plt Count 382 MPV 10.2 Absolute Nucleated RBC 0.000 Nucleated RBC % (auto) 0.0 Hold Purple Top SEE NOTE Sodium 139 Potassium 4.9 D Chloride 109 H Carbon Dioxide 25 Anion Gap 10 L BUN 16 Creatinine 0.73 Estim Creat Clear Calc 62.7 Estimated GFR > 60 Random Glucose 177 H Calcium 9.1 D Magnesium 2.4 B-Natriuretic Peptide 843 H Progress Note: A&P Assessment and plan (1) Chronic atrial fibrillation: Status: Acute Plan 68 year gentleman with permanent atrial fibrillation and alcoholism on background of coronary disease status post bypass surgery who is presenting with bradyarrhythmia and syncope. History is quite unclear because he has a very poor historian. He has been an alcoholic for many years and has significant malnutrition right now. Digoxin and metoprolol were held and is heart rate as improved and he is in AFib with RVR now. Digoxin should not be resumed in this gentleman anymore. Metoprolol dose was 100 mg twice a day before. I think currently would just hold it but if his heart rate continues to picker / packer then I think we should resume 25 mg twice a day of metoprolol and titrate according to blood pressure and heart rate. No indication for pacemaker. Supportive care and nutritional support. Discussed with him about alcohol abstinence in detail again. Thank you for allowing me to participate in the care of your patient. Please feel free to contact me if you have any questions. Time Spent With Patient Time: Total time managing care of this patient today ____ minutes. Progress Note: Quality Stroke Does the patient have a stroke diagnosis?: No Procedures Date of Service Date of Service: 04/15/24
[2024-04-15] MEDS: Morphine Sulfate 2 MG/ML CARTRIDGE IVPUSH ×3 (15:34→23:42)
[2024-04-15] MEDS: Metoprolol Tartrate 25 MG TABLET PO (19:32)
[2024-04-16] VITALS (11 sets, daily range): BP systolic 117–145; BP diastolic 56–79; PULSE 64–100; RESP 16–20; TEMP 36.1–36.4; O2SAT 92–100
[2024-04-16] MEDS: Magnesium Sulfate/H2O 2 GM/50 ML PIGGYBACK IV (01:13)
[2024-04-16] MEDS: Heparin Sodium,Porcine 5,000 UNIT/ML VIAL 5000 UNIT SUBCUT ×3 (01:13→16:13)
[2024-04-16] MEDS: Piperacillin Sodium/Tazobactam 4.5 GM in 0.9 % Sodium Chloride 100 ML IV ×4 (01:14→20:20)
[2024-04-16 07:15] LABS: Anion Gap 11 (12-20); Blood Urea Nitrogen 18 mg/dL (9-16); Calcium 8.6 mg/dL (8.4-10.2); Carbon Dioxide 25 mmol/L (22-29); Chloride 110 mmol/L (96-108); Creatinine Clr Calc Pharmacy 57.2; Estimated Glomerular Filt Rate > 60; Glucose Random 129 mg/dL (60-115); Potassium 5.8 mmol/L (3.3-5.1); Sodium 140 mmol/L (135-145)
[2024-04-16] MEDS: Fluticasone/Vilanterol 200/25 BLST.W.DEV 1 PUFF INHALE (07:36)
[2024-04-16] MEDS: Albuterol/Iprat 2.5/0.5MG 3 ML AMPUL.NEB INHALE ×4 (07:36→19:30)
[2024-04-16 07:54] LABS: Magnesium 2.4 mg/dL (1.6-2.6)
[2024-04-16 08:00] LABS: Potassium 5.7 mmol/L (3.3-5.1)
[2024-04-16] MEDS: methylPREDNISolone Sod Succ 40 MG/ML VIAL IVPUSH ×2 (08:48→16:12)
[2024-04-16] MEDS: Morphine Sulfate 2 MG/ML CARTRIDGE IVPUSH ×2 (08:49→16:13)
[2024-04-16] MEDS: Thiamine HCL 100 MG TABLET PO (08:55)
[2024-04-16] MEDS: Atorvastatin Calcium 20 MG TABLET PO (08:55)
[2024-04-16] MEDS: Aspirin Enteric Coated 81 MG TABLET.DR PO (08:55)
[2024-04-16] MEDS: 0.9 % Sodium Chloride Flush 3 ML SYRINGE IVFLUSH ×2 (08:55→16:13)
[2024-04-16] MEDS: guaiFENesin DM 600/30 1 TAB TAB.ER.12H PO ×2 (08:55→20:20)
[2024-04-16] MEDS: Multivitamin TABLET 1 TAB PO (08:55)
[2024-04-16] MEDS: Cholecalciferol (Vitamin D3) 25 MCG TABLET PO (08:55)
[2024-04-16] MEDS: Metoprolol Tartrate 25 MG TABLET PO ×2 (08:55→20:24)
[2024-04-16] MEDS: Folic Acid 1 MG TABLET PO (08:55)
[2024-04-16] MEDS: Docusate Sodium 100 MG CAPSULE PO ×2 (09:01→20:20)
[2024-04-16] MEDS: Sodium Zirconium Cyclosilicate 5 GM POWD.PACK PO (09:01)
[2024-04-16] MEDS: polyethylene glycoL 3350 17 GM POWD.PACK PO (09:01)
[2024-04-16] MEDS: Furosemide 20 MG/2 ML VIAL IVPUSH (09:12)
--- NOTE | 2024-04-16 10:41 | P.PNIM_ITS ---
Subjective Subjective Date of Service: 04/16/24 Interval History: Seen and examined this morning Follow-up for respiratory failure, syncope No further bradycardia, now in rapid AFib Remains short of breath Review of Systems Review of Systems: Yes all other systems are reviewed and are negative Constitutional Constitutional: Denies chills and Denies fever(s) Cardiovascular Cardiovascular: Denies chest pain, Denies palpitations and Reports dyspnea Respiratory Respiratory: Reports cough and Reports dyspnea Endocrine Endocrine: Denies palpitations Physical Exam 2 Vital Signs: Vital Signs: Last Vital Signs Temp 97.1 F 04/16/24 07:33 Pulse 65 04/16/24 07:37 Resp 18 04/16/24 07:37 BP 129/77 04/16/24 07:33 Pulse Ox 94 04/16/24 07:33 O2 Del Method Nasal Cannula 04/16/24 07:33 O2 Flow Rate 2.5 04/16/24 07:33 BMI result Body Mass Index 15.6 Const: Other: ill appearing General: cooperative, alert and awake Nutritional Appearance: cachectic Orientation/consciousness: patient oriented x3 Resp: Other: diminished breath sounds, b/l wheeze; no rales Effort & Inspection: tachypneic Cardio: Rate: regular rate GI: Inspection: No distended Palpation (GI): Soft to palpation and nontender Neuro: General: patient oriented x3, moves all extremities and CN's II-XI intact bilaterally Extrem: General: Yes no pedal edema Psych: Affect: normal affect Objective Data Active Medications Acetaminophen (Acetaminophen 325 Mg Tablet) 975 mg PO Q6H PRN PRN Reason: Pain, Mild (Pain Scale 1-3), fever or headache Albuterol Sulfate (Albuterol Sulfate (0.083%) 2.5 Mg/3 Ml Vial.Neb) 2.5 mg INHALE Q2H PRN PRN Reason: Shortness of Breath/Wheezing Last Admin: 04/15/24 00:49 Dose: 2.5 mg Documented By: MICHELLE Albuterol/Ipratropium (Albuterol/Iprat 2.5/0.5mg 3 Ml Ampul.Neb) 3 ml INHALE RQ4H WHILE AWAKE [facility] Last Admin: 04/16/24 07:36 Dose: 3 ml Documented By: VAIBHAV Aspirin (Aspirin Enteric Coated 81 Mg Tablet.) 81 mg PO DAILY [facility] Last Admin: 04/16/24 08:55 Dose: 81 mg Documented By: MARIAELENA Atorvastatin Calcium (Atorvastatin Calcium 20 Mg Tablet) 20 mg PO DAILY [facility] Last Admin: 04/16/24 08:55 Dose: 20 mg Documented By: MARIAELENA Docusate Sodium (Docusate Sodium 100 Mg Capsule) 100 mg PO BID [facility] Last Admin: 04/16/24 09:01 Dose: 100 mg Documented By: MARIAELENA Fluticasone/Vilanterol (Fluticasone/Vilanterol 200/25 Blst.W.Dev) 1 puff INHALE RDAILY [facility] Last Admin: 04/16/24 07:36 Dose: 1 puff Documented By: VAIBHAV Folic Acid (Folic Acid 1 Mg Tablet) 1 mg PO DAILY [facility] Last Admin: 04/16/24 08:55 Dose: 1 mg Documented By: MARIAELENA Furosemide (Furosemide 20 Mg Tablet) 20 mg PO DAILY PRN; Protocol PRN Reason: for edema Guaifenesin/Dextromethorphan (Guaifenesin Dm 600/30 1 Tab Tab.Er.12h) 1 tab PO BID [facility] Last Admin: 04/16/24 08:55 Dose: 1 tab Documented By: MARIAELENA Heparin Sodium (Porcine) (Heparin Sodium,Porcine 5,000 Unit/Ml Vial) 5,000 unit SUBCUT Q8H [facility] Last Admin: 04/16/24 08:55 Dose: 5,000 unit Documented By: MARIAELENA Piperacillin Sod/Tazobactam (Sod 4.5 gm/ Sodium Chloride) 100 mls @ 200 mls/hr IV Q6H [facility] Last Infusion: 04/16/24 09:27 Dose: Infused Documented By: MARIAELENA Methylprednisolone Sodium Succinate (Methylprednisolone Sod Succ 40 Mg/Ml Vial) 40 mg IVPUSH Q8H [facility] Last Admin: 04/16/24 08:48 Dose: 40 mg Documented By: MARIAELENA Metoprolol Tartrate (Metoprolol Tartrate 25 Mg Tablet) 25 mg PO BID [facility]; Protocol Last Admin: 04/16/24 08:55 Dose: 25 mg Documented By: MARIAELENA Morphine Sulfate (Morphine Sulfate 2 Mg/Ml Cartridge) 2 mg IVPUSH Q4H PRN; Protocol PRN Reason: work of breathing Last Admin: 04/16/24 08:49 Dose: 2 mg Documented By: MARIAELENA Multivitamins/Vitamin C (Multivitamin Tablet) 1 tab PO DAILY [facility] Last Admin: 04/16/24 08:55 Dose: 1 tab Documented By: MARIAELENA Polyethylene Glycol (Polyethylene Glycol 3350 17 Gm Powd.Pack) 17 gm PO DAILY [facility] Last Admin: 04/16/24 09:01 Dose: 17 gm Documented By: MARIAELENA Sodium Chloride (0.9 % Sodium Chloride Flush 3 Ml Syringe) 3 ml IVFLUSH QSHIFT [facility] Last Admin: 04/16/24 08:55 Dose: 3 ml Documented By: MARIAELENA Thiamine HCl (Thiamine Hcl 100 Mg Tablet) 100 mg PO DAILY [facility] Last Admin: 04/16/24 08:55 Dose: 100 mg Documented By: MARIAELENA Vitamin D (Cholecalciferol (Vitamin D3) 25 Mcg Tablet) 25 mcg PO DAILY [facility] Last Admin: 04/16/24 08:55 Dose: 25 mcg Documented By: MARIAELENA Labs 04/15/24 06:14 04/16/24 07:33 Labs: Laboratory Results - last 24 hr 04/15/24 04/16/24 11:25 06:20 Anion Gap 11 L Estim Creat Clear Calc 57.2 Estimated GFR > 60 Random Glucose 129 H Calcium 8.6 Magnesium 2.4 B-Natriuretic Peptide 843 H Microbiology Microbiology Results: Microbiology 04/13/24 Unknown Urine Culture - Final Urine clean catch - Clean Catch Midstream Assessment and Plan (1) Chronic atrial fibrillation: Status: Acute (2) Pneumonia: Status: Acute Plan Noble Valencia is a 68 y/o man admitted with: Syncope + bigeminy/multiple PVCs + bradycardia orthostatic blood pressure negative trop negative continue to hold digoxin and metoprolol echo with recovered EF 55-60% (previous 30-30% in November 2023) with moderately decreased right ventricular systolic function, moderate tricuspid regurgitation, moderate pulmonary hypertension cardiology following - no clear indication for pacemaker at this time. Due to ongoing alcoholism, poor nutritional status recommend conservative/noninvasive management Acute COPD exacerbation/chronic respiratory failure/pneumonia possibly due to aspiration per pulm notes supposed to use 2L o2 continuous, only uses as needed at home repeat CXR with possible developing infiltrate. no sepsis. white count increased due to steroids continue IV Solu-Medrol antibiotics escalated to zosyn due to concern over possible aspiration Continue breathing treatments seen by pulmonary, agree with current management seen by speech and downgraded to NDD3 diet check RPP HFpEF/right heart failure echo as above bnp elevated but doesn't appear to be in overt failure however given persistent respiratory symptoms despite treatment for pna/copd will try low-dose Lasix and assess for effect prn Furosemide held due to YTESHA - will resume chronic Atrial fibrillation Digoxin and metoprolol initially on hold for bradycardia, now with rapid ventricular response resumed lopressor at lower dose 25 mg bid, heart rate improving Continue aspirin. Not on anticoagulation ? due to etoh use hypokalemia resolved with replacement now with hyperkalemia lokelma and follow levels Hypomagnesemia. resolved with replacement TYESHA. renal function improving due to poor p.o. intake + diuretic use + alcohol use resolved CAD. No chest pain. Continue aspirin and statin. Vitamin-D deficiency. Continue vitamin-D supplementation. Alcohol dependence CIWA low, no evidence of etoh withdrawal at this time Thiamine, folic acid and multivitamins moderate Protein calorie malnutrition. BMI 14.3 kg/m2. Dietary consult. dietary supplements Code status: Full DVT prophylaxis: Heparin goals of care discussion with patient and lengthy discussion re: overall poor health/poor prognosis due to ongoing alcoholism/tobacco use/malnutrition and current active medical issues Healthcare proxy/daughter over the phone -->update 04/15 patient has elected to change code status to DNR/DNI, molst form filled out ongoing inpatient stay for respiratory failure, continuous cardiac monitoring, magnesium supplementation and close vital signs monitoring as well as subspecialty evaluation. Quality Stroke Does the patient have a stroke diagnosis?: No VTE Prior VTE?: No VTE Risk Level:: Medical - moderate - high VTE Device Contraindication: Treatment Not Indicated VTE Drug Contraindication: N/A - Med Ordered
[2024-04-16 14:01] LABS: Adenovirus PCR Not Detected (Not Detect.); Bordetella parapertussis PCR Not Detected (Not Detect.); Bordetella pertussis PCR Not Detected (Not Detect.); Chlamydia pneumoniae PCR Not Detected (Not Detect.); Coronavirus 229E PCR Not Detected (Not Detect.); Coronavirus HKU1 PCR Not Detected (Not Detect.); Coronavirus NL63 PCR Not Detected (Not Detect.); Coronavirus OC43 PCR Not Detected (Not Detect.); Human metapneumovirus PCR Not Detected (Not Detect.); Influenza A PCR Not Detected (Not Detect.); Influenza B PCR Not Detected (Not Detect.); Mycoplasma pneumoniae PCR Not Detected (Not Detect.); Parainfluenza 1 PCR Not Detected (Not Detect.); Parainfluenza 2 PCR Not Detected (Not Detect.); Parainfluenza 3 PCR Not Detected (Not Detect.); Parainfluenza 4 PCR Not Detected (Not Detect.); RSV PCR Not Detected (Not Detect.); Rhino/Enterovirus PCR Not Detected (Not Detect.)
[2024-04-16 14:25] LABS: SARS-CoV-2 PCR Not Detected (Not Detect.)
[2024-04-17] VITALS (10 sets, daily range): BP systolic 100–134; BP diastolic 58–88; PULSE 74–120; RESP 16–20; TEMP 36.1–36.5; O2SAT 91–99
[2024-04-17] MEDS: 0.9 % Sodium Chloride Flush 3 ML SYRINGE IVFLUSH ×4 (00:59→19:57)
[2024-04-17] MEDS: methylPREDNISolone Sod Succ 40 MG/ML VIAL IVPUSH ×3 (00:59→16:01)
[2024-04-17] MEDS: Heparin Sodium,Porcine 5,000 UNIT/ML VIAL 5000 UNIT SUBCUT ×3 (01:01→16:01)
[2024-04-17] MEDS: Piperacillin Sodium/Tazobactam 4.5 GM in 0.9 % Sodium Chloride 100 ML IV ×4 (01:01→19:56)
[2024-04-17] MEDS: Albuterol Sulfate (0.083%) 2.5 MG/3 ML VIAL.NEB INHALE (02:37)
[2024-04-17] MEDS: Morphine Sulfate 2 MG/ML CARTRIDGE IVPUSH (03:28)
[2024-04-17 07:12] LABS: Hematocrit 36.6 % (42.0-52.0); Hemoglobin 12.2 g/dl (14.0-18.0); Mean Corpuscular HGB Conc 33.3 g/dl (31.0-36.0); Mean Corpuscular Hemoglobin 33.2 pg (27.0-33.0); Mean Corpuscular Volume 99.7 fL (80.0-98.0); Mean Platelet Volume 10.5 fL (9.4-12.4); Platelet Count 332 X10*3/uL (160-400); Red Blood Count 3.67 X10*6/uL (4.60-5.80); Red Cell Distribution Width 14.6 % (11.0-16.0)
[2024-04-17] MEDS: Albuterol/Iprat 2.5/0.5MG 3 ML AMPUL.NEB INHALE ×4 (07:24→19:34)
[2024-04-17] MEDS: Fluticasone/Vilanterol 200/25 BLST.W.DEV 1 PUFF INHALE (07:24)
[2024-04-17 07:26] LABS: Anion Gap 14 (12-20); Blood Urea Nitrogen 21 mg/dL (9-16); Calcium 8.7 mg/dL (8.4-10.2); Carbon Dioxide 28 mmol/L (22-29); Chloride 105 mmol/L (96-108); Creatinine Clr Calc Pharmacy 53.9; Estimated Glomerular Filt Rate > 60; Glucose Random 136 mg/dL (60-115); Potassium 5.3 mmol/L (3.3-5.1); Sodium 142 mmol/L (135-145)
[2024-04-17 07:31] LABS: B Type Natriuretic Peptide 926 pg/mL (<100)
[2024-04-17] MEDS: Sodium Zirconium Cyclosilicate 10 GM POWD.PACK PO (09:31)
[2024-04-17] MEDS: Docusate Sodium 100 MG CAPSULE PO ×2 (09:31→19:57)
[2024-04-17] MEDS: polyethylene glycoL 3350 17 GM POWD.PACK PO (09:31)
[2024-04-17] MEDS: Metoprolol Tartrate 25 MG TABLET PO ×2 (09:31→19:57)
[2024-04-17] MEDS: Multivitamin TABLET 1 TAB PO (09:31)
[2024-04-17] MEDS: Aspirin Enteric Coated 81 MG TABLET.DR PO (09:32)
[2024-04-17] MEDS: guaiFENesin DM 600/30 1 TAB TAB.ER.12H PO ×2 (09:32→19:57)
[2024-04-17] MEDS: Folic Acid 1 MG TABLET PO (09:32)
[2024-04-17] MEDS: Cholecalciferol (Vitamin D3) 25 MCG TABLET PO (09:32)
[2024-04-17] MEDS: Thiamine HCL 100 MG TABLET PO (09:32)
[2024-04-17] MEDS: Atorvastatin Calcium 20 MG TABLET PO (09:32)
--- NOTE | 2024-04-17 10:30 | MHC.SL.SWA ---
Speech Pathologist Impression: Risk of Aspiration Due to: Medically Fragile Dysphasia Diet Status: Continue on Chopped/Advance (NDD3) with THIN liquids, pills whole with liquid. Liquid Consistency and Strategies for Safe Swallow: Liquid Intake Recommendation: Thin Liquid Intake Strategies: Unrestricted Solid Food Consistency: Dietary Recommendations: Chopped/Advanced (NDD3) Additional Modifications to Solid Foods: Assure that patient has access to all foods and drink at onset of meal. Alternate liquids and solids. Oral Medication Intake: Whole with Liquid Please contact the pharmacy regarding appropriate crushable or liquid drug formulations that are available whenever modified delivery is recommended. Compensatory Strategies and Precautions to be Taken for Safe Swallow: Sitting Upright (90 deg) Small Bites and Sips Alternate Liquids/Solids Supervision While Eating and Drinking for Safe Swallow: Intermittent Supervision Foods to Avoid: Tough, difficult to chew solids, too large pieces of food, dry, crunchy textures. Swallowing Recommended Treatments: Compens. Strategy Educat. Recommendation for Speech: Inpatient Speech Therapy Comment: Patient seen for re-evaluation of swallow this a.m. B2B Sales Consultant note indicated ? aspiration as an ongoing issue. On 04/14/24 clinical swallow evaluation, patient presented with mild oral phase dysphagia secondary to edentulous state, otherwise swallow WFL, patient recommended diet of chopped/advanced for ease of mastication, regular liquids, pills whole with liquid. This morning patient was observed while taking multiple pills, whole with liquids, and attempting to drink medicated drink (which he was doing along with his pills) with a straw. Patient took pills one by one, sipped liquid from straw, propelled bolus, produced a timely swallow with laryngeal elevation WFL. On multiple swallows of pills with liquid, no clinical signs of aspiration. Patient noted to burp occasionally after swallow. Medicinal drink was clearly unpleasant tasting for him (he described it as vile ), yet he persisted taking about half of the drink by small straw sips, then giving up. Patient reported that the food is fine, he has no difficulty with the texture or chewing, however he does not feel like eating most of the time. He is trying to drink the nutritional supplements that come with his meals. Patient presents as tolerating current diet of Chopped/Advanced (NDD3) and thin liquids (by cup sip and straw) pills whole with liquid, with no evidence of aspiration on these textures. TIME CYCLE OPERATOR to f/u X1 to observe meal toleration. Frequency/Duration: Date Range for Service Req: Timeline to reassess: Warehouse Team Member Clinican/Clinical Fellow: No Supervisory Statement: I have reviewed and agree with the student/clinical fellow's documentation: N/A Speech Language Pathologist: Gillian Simon M.A., CCC-TIME CYCLE OPERATOR
--- NOTE | 2024-04-17 10:30 | HO.PM.IMPN ---
Subjective Subjective Date of Service: 04/17/24 Interval History: Seen and examined this morning Follow-up for respiratory failure, syncope No further bradycardia Remains short of breath Review of Systems Review of Systems: Yes all other systems are reviewed and are negative Constitutional Constitutional: Denies chills and Denies fever(s) Cardiovascular Cardiovascular: Denies chest pain, Denies palpitations and Reports dyspnea Respiratory Respiratory: Reports cough and Reports dyspnea Endocrine Endocrine: Denies palpitations Physical Exam Vital Signs: Vital Signs: Last Vital Signs Temp 97.3 F 04/17/24 08:00 Pulse 76 04/17/24 08:00 Resp 18 04/17/24 08:00 BP 134/78 04/17/24 08:00 Pulse Ox 99 04/17/24 08:00 O2 Del Method Nasal Cannula 04/17/24 08:00 O2 Flow Rate 2.5 04/17/24 08:00 BMI result Body Mass Index 15.6 Appearing in no acute distress lung sounds rhonchi heart regular rate rhythm, clear S1, S2 positive bowel sounds, abdomen is soft, nontender neuro patient is alert x3, no focal deficits Objective Data Active Medications Acetaminophen (Acetaminophen 325 Mg Tablet) 975 mg PO Q6H PRN PRN Reason: Pain, Mild (Pain Scale 1-3), fever or headache Albuterol Sulfate (Albuterol Sulfate (0.083%) 2.5 Mg/3 Ml Vial.Neb) 2.5 mg INHALE Q2H PRN PRN Reason: Shortness of Breath/Wheezing Last Admin: 04/17/24 02:37 Dose: 2.5 mg Documented By: DUANE Albuterol/Ipratropium (Albuterol/Iprat 2.5/0.5mg 3 Ml Ampul.Neb) 3 ml INHALE RQ4H WHILE AWAKE [facility] Last Admin: 04/17/24 07:24 Dose: 3 ml Documented By: ZIA Aspirin (Aspirin Enteric Coated 81 Mg Tablet.) 81 mg PO DAILY [facility] Last Admin: 04/17/24 09:32 Dose: 81 mg Documented By: MARIAELENA Atorvastatin Calcium (Atorvastatin Calcium 20 Mg Tablet) 20 mg PO DAILY [facility] Last Admin: 04/17/24 09:32 Dose: 20 mg Documented By: MARIAELENA Docusate Sodium (Docusate Sodium 100 Mg Capsule) 100 mg PO BID [facility] Last Admin: 04/17/24 09:31 Dose: 100 mg Documented By: MARIAELENA Fluticasone/Vilanterol (Fluticasone/Vilanterol 200/25 Blst.W.Dev) 1 puff INHALE RDAILY [facility] Last Admin: 04/17/24 07:24 Dose: 1 puff Documented By: ZIA Folic Acid (Folic Acid 1 Mg Tablet) 1 mg PO DAILY [facility] Last Admin: 04/17/24 09:32 Dose: 1 mg Documented By: MARIAELENA Furosemide (Furosemide 20 Mg Tablet) 20 mg PO DAILY PRN; Protocol PRN Reason: for edema Guaifenesin/Dextromethorphan (Guaifenesin Dm 600/30 1 Tab Tab.Er.12h) 1 tab PO BID [facility] Last Admin: 04/17/24 09:32 Dose: 1 tab Documented By: MARIAELENA Heparin Sodium (Porcine) (Heparin Sodium,Porcine 5,000 Unit/Ml Vial) 5,000 unit SUBCUT Q8H [facility] Last Admin: 04/17/24 09:31 Dose: 5,000 unit Documented By: MARIAELENA Piperacillin Sod/Tazobactam (Sod 4.5 gm/ Sodium Chloride) 100 mls @ 200 mls/hr IV Q6H [facility] Last Admin: 04/17/24 09:28 Dose: 200 mls/hr Documented By: MARIAELENA Methylprednisolone Sodium Succinate (Methylprednisolone Sod Succ 40 Mg/Ml Vial) 40 mg IVPUSH Q8H [facility] Last Admin: 04/17/24 09:28 Dose: 40 mg Documented By: MARIAELENA Metoprolol Tartrate (Metoprolol Tartrate 25 Mg Tablet) 25 mg PO BID [facility]; Protocol Last Admin: 04/17/24 09:31 Dose: 25 mg Documented By: MARIAELENA Morphine Sulfate (Morphine Sulfate 2 Mg/Ml Cartridge) 4 mg IVPUSH Q4H PRN; Protocol PRN Reason: work of breathing Multivitamins/Vitamin C (Multivitamin Tablet) 1 tab PO DAILY [facility] Last Admin: 04/17/24 09:31 Dose: 1 tab Documented By: MARIAELENA Polyethylene Glycol (Polyethylene Glycol 3350 17 Gm Powd.Pack) 17 gm PO DAILY [facility] Last Admin: 07/15/24 09:31 Dose: 17 gm Documented By: MARIAELENA Sodium Chloride (0.9 % Sodium Chloride Flush 3 Ml Syringe) 3 ml IVFLUSH QSHIFT [facility] Last Admin: 04/17/24 09:31 Dose: 3 ml Documented By: MARIAELENA Thiamine HCl (Thiamine Hcl 100 Mg Tablet) 100 mg PO DAILY [facility] Last Admin: 04/17/24 09:32 Dose: 100 mg Documented By: MARIAELENA Vitamin D (Cholecalciferol (Vitamin D3) 25 Mcg Tablet) 25 mcg PO DAILY [facility] Last Admin: 04/17/24 09:32 Dose: 25 mcg Documented By: MARIAELENA Labs 04/17/24 06:51 04/17/24 06:51 Labs: Laboratory Results - last 24 hr 04/16/24 04/17/24 12:32 06:51 MCV 99.7 H MCH 33.2 H MCHC 33.3 RDW 14.6 Plt Count 332 MPV 10.5 Absolute Nucleated RBC 0.000 Nucleated RBC % (auto) 0.0 Anion Gap 14 Estim Creat Clear Calc 53.9 Estimated GFR > 60 Random Glucose 136 H Calcium 8.7 B-Natriuretic Peptide 926 H Respiratory Panel Freeman See Note Adenovirus (Rapid PCR) Not Detected B.pert (TEM-PCR) Not Detected B.parapertussis DNA PCR Not Detected C. pneumoniae DNA (PCR) Not Detected Coronavirus OC43 (PCR) Not Detected Coronavirus HKU1 (PCR) Not Detected Coronavirus 229E (PCR) Not Detected Coronavirus NL63 (PCR) Not Detected Human Metapneumovir PCR Not Detected Influenza A (RT-PCR) Not Detected Influenza B (RT-PCR) Not Detected M. pneumoniae (PCR) Not Detected Parainfluenza 1 (PCR) Not Detected Parainfluenza 2 (PCR) Not Detected Parainfluenza 3 (PCR) Not Detected Parainfluenza 4 (PCR) Not Detected RSV (PCR) Not Detected Entero/Rhino (PCR) Not Detected SARS-CoV-2 RNA (RT-PCR) Not Detected Assessment and Plan (1) Chronic atrial fibrillation: Status: Acute (2) Pneumonia: Status: Acute Plan Noble Valencia is a 68 y/o man admitted with: Syncope + bigeminy/multiple PVCs + bradycardia orthostatic blood pressure negative trop negative stopped digoxin metoprolol restarted at lower dose echo with recovered EF 55-60% (previous 30-30% in November 2023) cardiology following> no clear indication for pacemaker at this time. Due to ongoing alcoholism, poor nutritional status recommend conservative/noninvasive management, Acute COPD exacerbation/chronic respiratory failure/pneumonia possibly due to aspiration per pulm notes supposed to use 2L o2 continuous, only uses as needed at home repeat CXR with possible developing infiltrate. no sepsis. white count increased due to steroids continue IV Solu-Medrol antibiotics escalated to zosyn due to concern over possible aspiration Continue breathing treatments seen by pulmonary, agree with current management seen by speech and downgraded to NDD3 diet check RPP HFpEF/right heart failure echo as above bnp elevated but doesn't appear to be in overt failure however given persistent respiratory symptoms despite treatment for pna/copd will try low-dose Lasix and assess for effect prn Furosemide held due to TYESHA - will resume chronic Atrial fibrillation resumed lopressor at lower dose 25 mg bid, heart rate improving Continue aspirin. Not on anticoagulation likely due to etoh use hypokalemia resolved with replacement now with hyperkalemia lokelma and follow levels Hypomagnesemia. resolved with replacement TYESHA. renal function improving due to poor p.o. intake + diuretic use + alcohol use resolved CAD. No chest pain. Continue aspirin and statin. Vitamin-D deficiency. Continue vitamin-D supplementation. Alcohol dependence CIWA low, no evidence of etoh withdrawal at this time Thiamine, folic acid and multivitamins moderate Protein calorie malnutrition. BMI 14.3 kg/m2. Dietary consult. dietary supplements Code status: Full DVT prophylaxis: Heparin attending Dr. Gutierrez goals of care discussion with patient and lengthy discussion re: overall poor health/poor prognosis due to ongoing alcoholism/tobacco use/malnutrition and current active medical issues Healthcare proxy/daughter over the phone -->update 04/15 patient has elected to change code status to DNR/DNI, molst form filled out. ongoing inpatient stay for respiratory failure, continuous cardiac monitoring, magnesium supplementation and close vital signs monitoring as well as subspecialty evaluation. Quality Stroke Does the patient have a stroke diagnosis?: No VTE Prior VTE?: No VTE Risk Level:: Medical - moderate - high VTE Device Contraindication: Treatment Not Indicated VTE Drug Contraindication: N/A - Med Ordered
--- NOTE | 2024-04-17 11:42 | MHC.CLN ---
F/U PT IS MODERATELY MALNOURISHED-NON SEVERE MALNUTRITION IN THE CONTEXT OF BEHAVIOR, SOCIAL OR ENVIRONMENTAL SEE FULL CLINICAL NUTRITION ASSESSMENT DATED 04/14/24 DIET RX: CARDIAC CHOPPED-APPROPRIATE PT RECEIVING ENSURE BID TO INCREASE KCALS SUPP PROVIDE 700KCALS, 40G PROTEIN WITH 100% ACCEPTANCE MONITOR PO INTAKE AND ENCOURAGE SUPPLEMENTS
--- NOTE | 2024-04-17 12:59 | MHC.CM.PN ---
Per rounds and EMR review, pt is not ready for DC. PT eval pending. DCP initially is home, self care, CM to follow for recommendations and assist with DC planning.
[2024-04-18] VITALS (11 sets, daily range): BP systolic 114–154; BP diastolic 59–88; PULSE 72–128; RESP 16–24; TEMP 36.1–36.4; O2SAT 91–99; BMI 20.8
[2024-04-18] MEDS: methylPREDNISolone Sod Succ 40 MG/ML VIAL IVPUSH ×3 (00:45→15:27)
[2024-04-18] MEDS: Piperacillin Sodium/Tazobactam 4.5 GM in 0.9 % Sodium Chloride 100 ML IV ×4 (00:45→20:26)
[2024-04-18] MEDS: Heparin Sodium,Porcine 5,000 UNIT/ML VIAL 5000 UNIT SUBCUT ×3 (00:45→15:27)
[2024-04-18] MEDS: Morphine Sulfate 2 MG/ML CARTRIDGE 4 MG IVPUSH ×2 (03:58→10:33)
[2024-04-18] MEDS: Albuterol Sulfate (0.083%) 2.5 MG/3 ML VIAL.NEB INHALE (04:12)
--- NOTE | 2024-04-18 06:23 | PC.NURSE ---
Pt AOx3, can be vague and withdrawn at times, he is soft spoken. Tx catheter in place draining CYU. Pt slept on and off, mostly on for this RN's shift. Approx 0350 pt had increased WOB and heart rate. Assessed pt, increased O2 to 4L and brought in prn morphine (see MAR for administration), asked RT to give pt breathing treatment. Both had good effect. Encouraged pt to pursed lip breathing with some success. When FOOD SERVICE HELPER washed pt up this morning, he became SOB and admitted even that little exertion took a lot out of him. Call styles within reach. Bed alarm on.
[2024-04-18 06:55] LABS: Anion Gap 15 (12-20); Blood Urea Nitrogen 19 mg/dL (9-16); Calcium 9.2 mg/dL (8.4-10.2); Carbon Dioxide 29 mmol/L (22-29); Chloride 103 mmol/L (96-108); Creatinine Clr Calc Pharmacy 74.5; Estimated Glomerular Filt Rate > 60; Glucose Random 132 mg/dL (60-115); Potassium 5.1 mmol/L (3.3-5.1); Sodium 142 mmol/L (135-145)
[2024-04-18] MEDS: Fluticasone/Vilanterol 200/25 BLST.W.DEV 1 PUFF INHALE (07:36)
[2024-04-18] MEDS: Albuterol/Iprat 2.5/0.5MG 3 ML AMPUL.NEB INHALE ×4 (07:36→19:31)
[2024-04-18] MEDS: Thiamine HCL 100 MG TABLET PO (08:45)
[2024-04-18] MEDS: Atorvastatin Calcium 20 MG TABLET PO (08:45)
[2024-04-18] MEDS: Multivitamin TABLET 1 TAB PO (08:45)
[2024-04-18] MEDS: Cholecalciferol (Vitamin D3) 25 MCG TABLET PO (08:45)
[2024-04-18] MEDS: Docusate Sodium 100 MG CAPSULE PO ×2 (08:45→20:26)
[2024-04-18] MEDS: Metoprolol Tartrate 50 MG TABLET PO ×2 (08:45→20:26)
[2024-04-18] MEDS: guaiFENesin DM 600/30 1 TAB TAB.ER.12H PO ×2 (08:46→20:26)
[2024-04-18] MEDS: Aspirin Enteric Coated 81 MG TABLET.DR PO (08:46)
[2024-04-18] MEDS: Folic Acid 1 MG TABLET PO (08:46)
[2024-04-18] MEDS: polyethylene glycoL 3350 17 GM POWD.PACK PO (08:47)
[2024-04-18] MEDS: 0.9 % Sodium Chloride Flush 3 ML SYRINGE IVFLUSH ×3 (08:47→20:27)
--- NOTE | 2024-04-18 10:28 | HO.PM.IMPN ---
Subjective Subjective Date of Service: 04/18/24 Interval History: Seen and examined this morning Follow-up for respiratory failure, syncope No further bradycardia Remains short of breath Review of Systems Review of Systems: Yes all other systems are reviewed and are negative Constitutional Constitutional: Denies chills and Denies fever(s) Cardiovascular Cardiovascular: Denies chest pain, Denies palpitations and Reports dyspnea Respiratory Respiratory: Reports cough and Reports dyspnea Endocrine Endocrine: Denies palpitations Physical Exam Vital Signs: Vital Signs: Last Vital Signs Temp 97.3 F 04/18/24 07:24 Pulse 107 H 04/18/24 07:36 Resp 16 04/18/24 07:36 BP 120/79 04/18/24 07:24 Pulse Ox 98 04/18/24 07:24 O2 Del Method Nasal Cannula 04/18/24 07:24 O2 Flow Rate 2.5 04/18/24 07:24 BMI result Body Mass Index 20.8 Appearing in no acute distress lung sounds rhonchi heart regular rate rhythm, clear S1, S2 positive bowel sounds, abdomen is soft, nontender neuro patient is alert x3, no focal deficits Objective Data Active Medications Acetaminophen (Acetaminophen 325 Mg Tablet) 975 mg PO Q6H PRN PRN Reason: Pain, Mild (Pain Scale 1-3), fever or headache Albuterol Sulfate (Albuterol Sulfate (0.083%) 2.5 Mg/3 Ml Vial.Neb) 2.5 mg INHALE Q2H PRN PRN Reason: Shortness of Breath/Wheezing Last Admin: 04/18/24 04:12 Dose: 2.5 mg Documented By: MICHELLE Albuterol/Ipratropium (Albuterol/Iprat 2.5/0.5mg 3 Ml Ampul.Neb) 3 ml INHALE RQ4H WHILE AWAKE [facility] Last Admin: 04/18/24 07:36 Dose: 3 ml Documented By: ZIA Aspirin (Aspirin Enteric Coated 81 Mg Tablet.) 81 mg PO DAILY [facility] Last Admin: 04/18/24 08:46 Dose: 81 mg Documented By: JULIAN Atorvastatin Calcium (Atorvastatin Calcium 20 Mg Tablet) 20 mg PO DAILY [facility] Last Admin: 04/18/24 08:45 Dose: 20 mg Documented By: JULIAN Docusate Sodium (Docusate Sodium 100 Mg Capsule) 100 mg PO BID [facility] Last Admin: 04/18/24 08:45 Dose: 100 mg Documented By: JULIAN Fluticasone/Vilanterol (Fluticasone/Vilanterol 200/25 Blst.W.Dev) 1 puff INHALE RDAILY [facility] Last Admin: 04/18/24 07:36 Dose: 1 puff Documented By: ZIA Folic Acid (Folic Acid 1 Mg Tablet) 1 mg PO DAILY [facility] Last Admin: 04/18/24 08:46 Dose: 1 mg Documented By: JULIAN Furosemide (Furosemide 20 Mg Tablet) 20 mg PO DAILY PRN; Protocol PRN Reason: for edema Guaifenesin/Dextromethorphan (Guaifenesin Dm 600/30 1 Tab Tab.Er.12h) 1 tab PO BID [facility] Last Admin: 04/18/24 08:46 Dose: 1 tab Documented By: JULIAN Heparin Sodium (Porcine) (Heparin Sodium,Porcine 5,000 Unit/Ml Vial) 5,000 unit SUBCUT Q8H [facility] Last Admin: 04/18/24 08:47 Dose: 5,000 unit Documented By: JULIAN Piperacillin Sod/Tazobactam (Sod 4.5 gm/ Sodium Chloride) 100 mls @ 200 mls/hr IV Q6H [facility] Last Admin: 04/18/24 08:46 Dose: 100 mls/hr Documented By: JULIAN Methylprednisolone Sodium Succinate (Methylprednisolone Sod Succ 40 Mg/Ml Vial) 40 mg IVPUSH Q8H [facility] Last Admin: 04/18/24 08:47 Dose: 40 mg Documented By: JULIAN Metoprolol Tartrate (Metoprolol Tartrate 50 Mg Tablet) 50 mg PO BID [facility]; Protocol Last Admin: 04/18/24 08:45 Dose: 50 mg Documented By: JULIAN Morphine Sulfate (Morphine Sulfate 2 Mg/Ml Cartridge) 4 mg IVPUSH Q4H PRN; Protocol PRN Reason: work of breathing Last Admin: 04/18/24 03:58 Dose: 4 mg Documented By: DANYELLE Multivitamins/Vitamin C (Multivitamin Tablet) 1 tab PO DAILY [facility] Last Admin: 04/18/24 08:45 Dose: 1 tab Documented By: JULIAN Polyethylene Glycol (Polyethylene Glycol 3350 17 Gm Powd.Pack) 17 gm PO DAILY [facility] Last Admin: 04/18/24 08:47 Dose: 17 gm Documented By: JULIAN Sodium Chloride (0.9 % Sodium Chloride Flush 3 Ml Syringe) 3 ml IVFLUSH QSHIFT [facility] Last Admin: 04/18/24 08:47 Dose: 3 ml Documented By: JULIAN Thiamine HCl (Thiamine Hcl 100 Mg Tablet) 100 mg PO DAILY [facility] Last Admin: 04/18/24 08:45 Dose: 100 mg Documented By: JULIAN Vitamin D (Cholecalciferol (Vitamin D3) 25 Mcg Tablet) 25 mcg PO DAILY [facility] Last Admin: 04/18/24 08:45 Dose: 25 mcg Documented By: JULIAN Labs 04/17/24 06:51 04/18/24 05:57 Labs: Laboratory Results - last 24 hr 04/18/24 05:57 Hold Purple Top SEE NOTE Anion Gap 15 Estim Creat Clear Calc 74.5 Estimated GFR > 60 Random Glucose 132 H Calcium 9.2 Assessment and Plan (1) Chronic atrial fibrillation: Status: Acute (2) Pneumonia: Status: Acute Plan Noble Valencia is a 68 y/o man admitted with HFpEF/right heart failure preserved EF but elevated BNP with sob however given persistent respiratory symptoms despite treatment for pna/copd will try low-dose Lasix and assess for effect Acute on chronic respiratory failure secondary to COPD exacerbation and aspiration pneumonia on 2L o2 continuous, only uses as needed at home RPP neg continue IV Solu-Medrol down to Q12h and duonebs cxr today showing worsening LLL infiltrate zosyn (initiated 04/15/24) will add vancomycin seen by pulmonary, agree with current management check chest CT Chronic Atrial fibrillation lopressor 50 mg bid Continue aspirin. Not on anticoagulation likely due to etoh use Syncope + bigeminy/multiple PVCs + bradycardia orthostatic blood pressure negative trop negative echo with recovered EF 55-60% cardiology following> no clear indication for pacemaker at this time. avoid digoxin. restart BB at lower dose Due to ongoing alcoholism, poor nutritional status recommend conservative/noninvasive management Hypokalemia. resolved with replacement Hyperkalemia. resolved after lokelma Hypomagnesemia. resolved with replacement TYESHA. Resolved renal function improving due to poor p.o. intake + diuretic use + alcohol use CAD. No chest pain. Continue aspirin and statin. Vitamin-D deficiency. Continue vitamin-D supplementation. Alcohol dependence CIWA low, no evidence of etoh withdrawal at this time Thiamine, folic acid and multivitamins Moderate Protein calorie malnutrition. BMI 20.8 kg/m2. dietary supplements Code status: Full DVT prophylaxis: Heparin attending Dr. Gutierrez DISPO PT rec pulmonary rehab goals of care discussion with patient and lengthy discussion re: overall poor health/poor prognosis due to ongoing alcoholism/tobacco use/malnutrition and current active medical issues Healthcare proxy/daughter over the phone -->update 04/15 patient has elected to change code status to DNR/DNI, molst form filled out. ongoing inpatient stay for respiratory failure, continuous cardiac monitoring, magnesium supplementation and close vital signs monitoring as well as subspecialty evaluation. Quality Stroke Does the patient have a stroke diagnosis?: No VTE Prior VTE?: No VTE Risk Level:: Medical - moderate - high VTE Device Contraindication: Treatment Not Indicated VTE Drug Contraindication: N/A - Med Ordered
[2024-04-18 11:33] LABS: B Type Natriuretic Peptide 937 pg/mL (<100)
--- NOTE | 2024-04-18 13:00 | MHC.SL.DTX ---
Dysphagia Diet modifications: Last documented Solid diet consistencies: Chopped/Advanced (NDD3) Last documented Liquid consistency: Thin Changes made to current diet?: No Liquid Consistency and Strategies: Liquid Intake Recommendation: Thin Compensatory Strategies for Safe Swallow: Unrestricted Compensatory Strategies for Safe Swallow(b): Sitting Upright (90 deg) Small Bites and Sips Alternate Liquids/Solids Solid Food Consistency: Dietary Recommendations: Chopped/Advanced (NDD3) Additional Modifications to Solids: Assure that patient has access to all foods and drink at onset of meal. Alternate liquids and solids. Oral Medication Intake: Whole with Liquid Strategies and Precautions to be Taken for Safe Swallow: Sitting Upright (90 deg) Small Bites and Sips Alternate Liquids/Solids Supervision While Eating and/Drinking: Intermittent Supervision Foods to Avoid: Tough, difficult to chew solids, too large pieces of food, dry, crunchy textures. Swallowing Recommended Treatments: Compens. Strategy Educat. Level of Impact on: Daily activities: None Education: None Employment: None Community: None Prognosis for Improvement: Good Recommendation for Speech: Inpatient Speech Therapy Treatment: Pt tolerated Regular Solid (cracker) with oral phase delay and request for Thin Liquids to wash it down. Pt tolerated consecutive sips of Thin Liquids in the presence of oral residue with no overt s/s of aspiration. He has been stable with his current diet and is not a candidate for further upgrade in this setting due to his edentulous status. No further RESIDENTIAL APPRAISER intervention required at this time. Recommend the Pt be re-assessed by RESIDENTIAL APPRAISER at his next level of care to make appropriate recommendations for modified solids. Please re-refer is status changes. Formula Checker Clinican/Clinical Fellow: No Supervisory Statement: I have reviewed and agree with the student/clinical fellow's documentation: N/A Speech Language Pathologist: Bart Moreau M.A., [facility]-RESIDENTIAL APPRAISER
--- NOTE | 2024-04-18 13:02 | MHC.CM.PN ---
EMR reviewed and per MD rounds, pt is not medically cleared for discharge due to ongoing management of a-fib and bradycardia, anticipating pt will be ready in the next couple of days. PT evaluated pt and are recommending STR/pulmonary rehab. This CM met with pt to discuss STR, pt in agreement. List of pulmonary rehabs in the area given to pt, and pt has chosen [facility] as his first choice. [facility] willing [facility] accept pt and are following pt on [facility].
[2024-04-18] MEDS: Furosemide 20 MG/2 ML VIAL IVPUSH (14:30)
[2024-04-18] MEDS: vancomycin HCL 1,500 MG in 0.9 % Sodium Chloride 500 ML 333.33 MG IV (14:30)
--- NOTE | 2024-04-18 16:11 | PHA.PROG ---
Admission Date/Time: April 12, 2024 20:38 Indication: RespiratoryInfection Weight in k.3 kg Serum Creatinine - Last 168 Hours 04/12/24 04/13/24 04/14/24 17:53 04:59 07:38 Creatinine 1.37 1.04 0.73 04/15/24 04/16/24 04/17/24 06:14 06:20 06:51 Creatinine 0.73 0.80 0.85 04/18/24 05:57 Creatinine 0.82 Estimated CrCl and GFR - Last 168 Hours 04/12/24 04/13/24 04/14/24 17:53 04:59 07:38 Estim Creat Clear Calc 33.4 44.0 62.7 Estimated GFR 52 > 60 > 60 04/15/24 04/16/24 04/17/24 06:14 06:20 06:51 Estim Creat Clear Calc 62.7 57.2 53.9 Estimated GFR > 60 > 60 > 60 04/18/24 05:57 Estim Creat Clear Calc 74.5 Estimated GFR > 60 Vancomycin Loading Dose: 1,500 mg Current Vancomycin Dosing Regimen: 1,000 mg once, then 750mg q12h (per Chris's suggestion) Vancomycin Monitoring using AUC goal of 400 - 600 range with trough as surrogate marker: w/ 1,000 mg once predicted AUC: 641 & predicted trough: 20.3, after w/ 750mg Q12H, predicted AUC: 489 and predicted trough: 15.5 Date and Time for next Vancomycin Level to be drawn: Pharmacist Comments on Vancomycin Plan: Giving 1,000mg once, then reducing dose down to 750mg q12h. Vancomycin dosing will take advantage of [employer] as a clinical decision support tool that uses Bayesian modeling to calculate individual patient's pharmacokinetic parameters and forecast the patient's drug concentration time course with the target goal AUC 24 range of 400 - 600 mg/L/hr.
[2024-04-19] VITALS (14 sets, daily range): BP systolic 96–144; BP diastolic 58–82; PULSE 71–106; RESP 16–21; TEMP 36–36.6; O2SAT 90–100; BMI 20.4
[2024-04-19] MEDS: Heparin Sodium,Porcine 5,000 UNIT/ML VIAL 5000 UNIT SUBCUT ×2 (01:08→09:12)
[2024-04-19] MEDS: methylPREDNISolone Sod Succ 40 MG/ML VIAL IVPUSH ×3 (01:08→15:44)
[2024-04-19] MEDS: Piperacillin Sodium/Tazobactam 4.5 GM in 0.9 % Sodium Chloride 100 ML IV ×3 (01:08→20:45)
[2024-04-19] MEDS: vancomycin HCL 1,000 MG in 0.9 % Sodium Chloride 250 ML 270 MG IV (02:52)
[2024-04-19] MEDS: Morphine Sulfate 2 MG/ML CARTRIDGE 4 MG IVPUSH ×2 (03:35→20:43)
[2024-04-19] MEDS: Albuterol Sulfate (0.083%) 2.5 MG/3 ML VIAL.NEB INHALE (03:36)
[2024-04-19] MEDS: Fluticasone/Vilanterol 200/25 BLST.W.DEV 1 PUFF INHALE (07:30)
[2024-04-19] MEDS: Albuterol/Iprat 2.5/0.5MG 3 ML AMPUL.NEB INHALE ×4 (07:31→18:43)
[2024-04-19 08:02] LABS: Creatinine Clr Calc Pharmacy 77.6; Estimated Glomerular Filt Rate > 60
[2024-04-19] MEDS: guaiFENesin DM 600/30 1 TAB TAB.ER.12H PO ×2 (09:12→20:43)
[2024-04-19] MEDS: Cholecalciferol (Vitamin D3) 25 MCG TABLET PO (09:12)
[2024-04-19] MEDS: Aspirin Enteric Coated 81 MG TABLET.DR PO (09:12)
[2024-04-19] MEDS: Atorvastatin Calcium 20 MG TABLET PO (09:12)
[2024-04-19] MEDS: Metoprolol Tartrate 50 MG TABLET PO ×2 (09:12→20:42)
[2024-04-19] MEDS: Multivitamin TABLET 1 TAB PO (09:12)
[2024-04-19] MEDS: Folic Acid 1 MG TABLET PO (09:12)
[2024-04-19] MEDS: Docusate Sodium 100 MG CAPSULE PO ×2 (09:12→20:42)
[2024-04-19] MEDS: Thiamine HCL 100 MG TABLET PO (09:12)
[2024-04-19] MEDS: Furosemide 20 MG/2 ML VIAL IVPUSH (09:13)
--- NOTE | 2024-04-19 09:15 | PM.CNPUL ---
History of Present Illness History of Present Illness Consult date: 04/19/24 Chief complaint: Syncope,bradycardia Narrative: This is an inpatient pulmonary consultation. The patient is a 68 years old man with past medical history significant for HFrEF (30-35%) on digoxin, CAD, ongoing alcohol abuse, atrial fibrillation and COPD was brought to the ED via EMS after his was found on the floor unresponsive between 3-4 PM. Patient is a vague historian he does remember what happened. He denied palpitations, chest pain, fever, chills. dizziness or shortness on breath. He denied any acute gastrointestinal or genitourinary symptoms. He does have chronic back pain. Denied edema to the lower extremities. He has an ongoing alcohol abuse or and unable to tell me how many drinks he drinks daily. He smoke tobacco and denied illicit drug use. In the ED he was placed on oxygen. He had a CT chest personally reviewed by me with a LLL pneumonia with mucus plugging and pleural effusion. CXR with interval worsening LLL pneumonia. I did teach him how to use the aerobika. We did talk about performing a bronchoscopy, but the patient is not interested. Review of Systems Constitutional: Constitutional: Denies night sweats ENT: Denies change in voice, Denies lip swelling, Denies mouth pain, Reports nasal congestion, Reports nasal discharge and Denies tongue swelling Cardiovascular: Cardiovascular: Denies chest pain and Reports dyspnea Respiratory: Respiratory: Reports chest congestion, Reports cough, Denies hemoptysis and Reports dyspnea Gastrointestinal: Gastrointestinal: Denies abdominal pain Musculoskeletal: Musculoskeletal: Denies no additional musculoskeletal complaints Neurologic: Denies Neuro-related abnormal movements Psychiatric: Psychiatric: Denies no additional psychiatric complaints Hematologic/Lymphatic: Hematologic/Lymphatic: Denies easy bleeding and Denies lymphadenopathy Allergic/Immunologic: Allergic/Immunologic: Denies lip swelling and Denies tongue swelling [facility] Past Medical History Medical History (Updated 04/19/24 @ 09:23 by Gilbert Christian MD) Pneumonia Respiratory failure with hypoxia History of [place] (myocardial infarction) History of seizure due to alcohol withdrawal Atrial fibrillation with slow ventricular response Hypoxemia CAP (community acquired pneumonia) Chronic respiratory failure Atherosclerotic cardiovascular disease CHF (congestive heart failure) CAD (coronary artery disease) History of ischemic cardiomyopathy Tobacco abuse Alcohol abuse Hypercholesteremia COPD (chronic obstructive pulmonary disease) Surgical History Surgical History History of coronary artery bypass graft x 3 (~2013) History of surgery on lower extremity (~2018) Social History Social History Household Members: Family Household Members Other:: CHILDREN,GRANDCHILDREN Housing: House Do you presently have visiting nurse or other home services: No Alcohol intake: current Alcohol intake frequency: 0-2 drinks per day Alcohol type: hard liquor Patient Tobacco Use Status: Current everyday Tobacco user Tobacco use type: Cigarette Cigarette Packs Per Day: 0.5 Cigarettes Per Day: 7 Years Smoked: 40+ e-Cigarette/Vaping Use: Never Used Second Hand Smoke Exposure: No Advance Directives Date on File: 11/08/20 service: No Current occupational status: retired [employer] Allergies Allergy/AdvReac Type Severity Reaction Status Date / Time No Known Allergies Allergy Verified 04/12/24 16:59 [No Known Allergies*] Active Medications: Current Medications Acetaminophen (Acetaminophen 325 Mg Tablet) 975 mg PO Q6H PRN PRN Reason: Pain, Mild (Pain Scale 1-3), fever or headache Albuterol Sulfate (Albuterol Sulfate (0.083%) 2.5 Mg/3 Ml Vial.Neb) 2.5 mg INHALE Q2H PRN PRN Reason: Shortness of Breath/Wheezing Last Admin: 04/19/24 03:36 Dose: 2.5 mg Albuterol/Ipratropium (Albuterol/Iprat 2.5/0.5mg 3 Ml Ampul.Neb) 3 ml INHALE RQ4H WHILE AWAKE [facility] Last Admin: 04/19/24 07:31 Dose: 3 ml Aspirin (Aspirin Enteric Coated 81 Mg Tablet.Dr) 81 mg PO DAILY [facility] Last Admin: 04/18/24 08:46 Dose: 81 mg Atorvastatin Calcium (Atorvastatin Calcium 20 Mg Tablet) 20 mg PO DAILY [facility] Last Admin: 04/18/24 08:45 Dose: 20 mg Docusate Sodium (Docusate Sodium 100 Mg Capsule) 100 mg PO BID [facility] Last Admin: 04/18/24 20:26 Dose: 100 mg Fluticasone/Vilanterol (Fluticasone/Vilanterol 200/25 Blst.W.Dev) 1 puff INHALE RDAILY [facility] Last Admin: 04/19/24 07:30 Dose: 1 puff Folic Acid (Folic Acid 1 Mg Tablet) 1 mg PO DAILY [facility] Last Admin: 04/18/24 08:46 Dose: 1 mg Furosemide (Furosemide 20 Mg Tablet) 20 mg PO DAILY PRN; Protocol PRN Reason: for edema Furosemide (Furosemide 20 Mg/2 Ml Vial) 20 mg IVPUSH DAILY [facility]; Protocol Last Admin: 04/18/24 14:30 Dose: 20 mg Guaifenesin/Dextromethorphan (Guaifenesin Dm 600/30 1 Tab Tab.Er.12h) 1 tab PO BID [facility] Last Admin: 04/18/24 20:26 Dose: 1 tab Heparin Sodium (Porcine) (Heparin Sodium,Porcine 5,000 Unit/Ml Vial) 5,000 unit SUBCUT Q8H [facility] Last Admin: 04/19/24 01:08 Dose: 5,000 unit Piperacillin Sod/Tazobactam (Sod 4.5 gm/ Sodium Chloride) 100 mls @ 200 mls/hr IV Q6H [facility] Last Infusion: 04/19/24 03:10 Dose: Infused Vancomycin HCl 750 mg/ Sodium (Chloride) 265 mls @ 265 mls/hr IV Q12H [facility] Methylprednisolone Sodium Succinate (Methylprednisolone Sod Succ 40 Mg/Ml Vial) 40 mg IVPUSH Q8H [facility] Last Admin: 04/19/24 01:08 Dose: 40 mg Metoprolol Tartrate (Metoprolol Tartrate 50 Mg Tablet) 50 mg PO BID [facility]; Protocol Last Admin: 04/18/24 20:26 Dose: 50 mg Morphine Sulfate (Morphine Sulfate 2 Mg/Ml Cartridge) 4 mg IVPUSH Q4H PRN; Protocol PRN Reason: work of breathing Last Admin: 04/19/24 03:35 Dose: 4 mg Multivitamins/Vitamin C (Multivitamin Tablet) 1 tab PO DAILY [facility] Last Admin: 04/18/24 08:45 Dose: 1 tab Pharmacy Consult (Consult Rx Vancomycin Dosing) 1 each MISCELLANE DAILY PRN PRN Reason: Consult order Polyethylene Glycol (Polyethylene Glycol 3350 17 Gm Powd.Pack) 17 gm PO DAILY [facility] Last Admin: 04/18/24 08:47 Dose: 17 gm Sodium Chloride (0.9 % Sodium Chloride Flush 3 Ml Syringe) 3 ml IVFLUSH QSHIFT [facility] Last Admin: 04/18/24 20:27 Dose: 3 ml Thiamine HCl (Thiamine Hcl 100 Mg Tablet) 100 mg PO DAILY [facility] Last Admin: 04/18/24 08:45 Dose: 100 mg Vitamin D (Cholecalciferol (Vitamin D3) 25 Mcg Tablet) 25 mcg PO DAILY [facility] Last Admin: 04/18/24 08:45 Dose: 25 mcg Home Medications ?Medication ?Instructions ?Recorded ?Confirmed ?Last Taken ?Type aspirin 81 mg tablet,delayed 81 mg PO DAILY 08/12/20 04/12/24 04/12/24 History release thiamine HCl (vitamin B1) 100 mg 100 mg PO DAILY 11/05/20 04/12/24 04/12/24 History tablet (Vitamin B-1) cholecalciferol (vitamin D3) 25 25 mcg PO DAILY 11/07/20 04/12/24 04/12/24 History mcg (1,000 unit) capsule (Vitamin D3) Physical Exam Vital Signs: Vital Signs: Last Vital Signs Temp 97.9 F 04/19/24 08:00 Pulse 81 04/19/24 08:00 Resp 20 04/19/24 08:00 BP 116/71 04/19/24 08:00 Pulse Ox 96 04/19/24 08:00 O2 Del Method Oxymask 04/19/24 08:00 O2 Flow Rate 2 04/19/24 08:00 BMI result Body Mass Index 20.4 Const: Other: poor hygiene General: cooperative, no acute distress, alert and awake Nutritional Appearance: thin Orientation/consciousness: patient oriented x3 Neck: Neck: Yes supple Chest: Chest palpation & inspection: normal inspection of the chest Resp: Other: diminished breath sounds Effort & Inspection: normal respiratory effort and able to speak in complete sentences Auscultation: diminished lung sounds Cardio: Rate: regular rate GI: Inspection: No distended Palpation (GI): Soft to palpation and nontender Neuro: General: patient oriented x3 Extrem: General: Yes no pedal edema Psych: Affect: normal affect Results Laboratory Findings 04/17/24 06:51 04/19/24 07:13 ABG, PT/INR, D-dimer: PT/INR, D-dimer PT 16.5 SEC (11.1-13.3) H 04/12/24 17:53 INR 1.4 (0.9-1.1) H 04/12/24 17:53 Abnormal lab findings: Abnormal Labs 04/12/24 04/13/2424 17:53 04:59 05:00 WBC RBC 3.93 L 3.75 L Hgb 13.2 L 12.6 L Hct 38.6 L 36.9 L MCV 98.2 H 98.4 H MCH 33.6 H 33.6 H Plt Count 427 H D Immature Gran % (Auto) 0.7 H 0.9 H Neut % (Auto) 74.1 H Lymph % (Auto) 11.4 L 11.6 L Lynn % (Auto) 11.8 H 13.9 H Lymph # (Auto) 1.1 L Lynn # (Auto) 1.5 H Abs Immat Gran (auto) 0.07 H 0.09 H Absolute Neuts (auto) PT 16.5 H INR 1.4 H Potassium 2.6 L* D Chloride Anion Gap BUN 26 H 25 H Random Glucose Calcium 8.0 L D 8.1 L Magnesium 1.5 L Total Bilirubin 1.3 H Total Creatine Kinase 27 L B-Natriuretic Peptide 555 H Total Protein 6.1 L Albumin 3.2 L 3.1 L Lipase < 4 L Ur Leukocyte Esterase Urine WBC 04/13/24 04/14/24 04/14/24 09:44 07:38 13:04 WBC 12.1 H RBC 3.67 L Hgb 12.4 L Hct 36.1 L MCV 98.4 H MCH 33.8 H Plt Count Immature Gran % (Auto) 0.7 H Neut % (Auto) 94.4 H Lymph % (Auto) 2.4 L Lynn % (Auto) Lymph # (Auto) 0.3 L Lynn # (Auto) Abs Immat Gran (auto) 0.09 H Absolute Neuts (auto) 11.5 H PT INR Potassium 2.7 L* D 3.2 L Chloride Anion Gap BUN 18 H Random Glucose 213 H Calcium 8.2 L Magnesium Total Bilirubin Total Creatine Kinase B-Natriuretic Peptide 1048 H Total Protein 5.9 L Albumin 3.0 L Lipase Ur Leukocyte Esterase Small (1+) H Urine WBC 11-20 H 04/15/24 04/15/24 04/16/24 06:14 11:25 06:20 WBC 18.9 H RBC 3.65 L Hgb 12.2 L Hct 36.6 L MCV 100.3 H MCH 33.4 H Plt Count Immature Gran % (Auto) Neut % (Auto) Lymph % (Auto) Lynn % (Auto) Lymph # (Auto) Lynn # (Auto) Abs Immat Gran (auto) Absolute Neuts (auto) PT INR Potassium 5.8 H Chloride 109 H 110 H Anion Gap 10 L 11 L BUN 18 H Random Glucose 177 H 129 H Calcium Magnesium Total Bilirubin Total Creatine Kinase B-Natriuretic Peptide 843 H Total Protein Albumin Lipase Ur Leukocyte Esterase Urine WBC 04/16/24 04/17/24 04/18/24 07:33 06:51 05:57 WBC 18.0 H RBC 3.67 L Hgb 12.2 L Hct 36.6 L MCV 99.7 H MCH 33.2 H Plt Count Immature Gran % (Auto) Neut % (Auto) Lymph % (Auto) Lynn % (Auto) Lymph # (Auto) Lynn # (Auto) Abs Immat Gran (auto) Absolute Neuts (auto) PT INR Potassium 5.7 H 5.3 H Chloride Anion Gap BUN 21 H 19 H Random Glucose 136 H 132 H Calcium Magnesium Total Bilirubin Total Creatine Kinase B-Natriuretic Peptide 926 H Total Protein Albumin Lipase Ur Leukocyte Esterase Urine WBC 04/18/24 10:52 WBC RBC Hgb Hct MCV MCH Plt Count Immature Gran % (Auto) Neut % (Auto) Lymph % (Auto) Lynn % (Auto) Lymph # (Auto) Lynn # (Auto) Abs Immat Gran (auto) Absolute Neuts (auto) PT INR Potassium Chloride Anion Gap BUN Random Glucose Calcium Magnesium Total Bilirubin Total Creatine Kinase B-Natriuretic Peptide 937 H Total Protein Albumin Lipase Ur Leukocyte Esterase Urine WBC Microbiology: Microbiology 04/13/24 Unknown Urine clean catch - Clean Catch Midstream Urine Culture - Final Assessment and Plan (1) Pneumonia: Qualifiers: Pneumonia type: aspiration pneumonia Aspiration pneumonia type: unspecified Laterality: left Lung location: lower lobe of lung Qualified Code(s): J69.0 - Pneumonitis due to inhalation of food and vomit Status: Acute (2) COPD (chronic obstructive pulmonary disease): Qualifiers: COPD type: COPD with acute lower respiratory infection Qualified Code(s): J44.0 - Chronic obstructive pulmonary disease with (acute) lower respiratory infection Status: Acute (3) Acute on chronic hypoxic respiratory failure: Status: Acute Plan continue broad spectrum antibiotics continue oxymask to keep pox>90% CPT with aerobika OOB to chair/ISS continue nebulizer therapy serial CXR If no better or worsens may need a bronchosocopy to assess for foreign body or mucus plugging of that left base Procedures Date of Service Date of Service: 04/19/24
[2024-04-19] MEDS: 0.9 % Sodium Chloride Flush 3 ML SYRINGE IVFLUSH ×3 (09:33→20:47)
--- NOTE | 2024-04-19 09:41 | MHC.CLN ---
F/U PT IS MODERATELY MALNOURISHED-NON SEVERE MALNUTRITION IN THE CONTEXT OF BEHAVIOR, SOCIAL OR ENVIRONMENTAL PO INTAKE VARIABLE DIET RX: CARDIAC CHOPPED-APPROPRIATE PT RECEIVING ENSURE BID TO INCREASE KCALS SUPP PROVIDE 700KCALS, 40G PROTEIN WITH 100% ACCEPTANCE MONITOR PO INTAKE AND ENCOURAGE SUPPLEMENTS
[2024-04-19 13:17] LABS: Vancomycin Random 28.5 mcg/mL (15-20)
--- NOTE | 2024-04-19 13:28 | HE.PHANOTE ---
Re Vanc: Trough came back high at 28.5. Held dose for today, will get another level at 7 @ 0600. Pending new dose for 1g q24h AUC 509mg/L and projected trough 13mg/L.
--- NOTE | 2024-04-19 14:35 | HO.PM.IMPN ---
Subjective Subjective Date of Service: 04/19/24 Interval History: Being followed for syncope/bradycardia. Offers no acute complaints denies shortness of breath no chest pain tolerating chopped advanced diet with thin liquids denies coughing, no other acute events overnight. Review of Systems All other systems are reviewed and are negative. Physical Exam Vital Signs: Vital Signs: Last Vital Signs Temp 96.9 F 04/19/24 11:31 Pulse 88 04/19/24 11:31 Resp 20 04/19/24 11:31 BP 104/60 04/19/24 11:31 Pulse Ox 96 04/19/24 11:31 O2 Del Method Room Air 04/19/24 11:31 O2 Flow Rate 2 04/19/24 08:00 BMI result Body Mass Index 20.4 Const: Other: General awake alert x3, in no acute distress. Neck supple no JVD. CVS regular rate rhythm, Respiratory lungs diminished breath sounds, no wheeze, no crackles, no respiratory distress Gastrointestinal abdomen soft, non tender, bowel sounds audible , no rigidity. Extremities no edema. Neuro non focal Skin no rash Psych appropriate affect Objective Data Active Medications Acetaminophen (Acetaminophen 325 Mg Tablet) 975 mg PO Q6H PRN PRN Reason: Pain, Mild (Pain Scale 1-3), fever or headache Albuterol Sulfate (Albuterol Sulfate (0.083%) 2.5 Mg/3 Ml Vial.Neb) 2.5 mg INHALE Q2H PRN PRN Reason: Shortness of Breath/Wheezing Last Admin: 04/19/24 03:36 Dose: 2.5 mg Documented By: GEO Albuterol/Ipratropium (Albuterol/Iprat 2.5/0.5mg 3 Ml Ampul.Neb) 3 ml INHALE RQ4H WHILE AWAKE [facility] Last Admin: 04/19/24 11:10 Dose: 3 ml Documented By: MARTIN Aspirin (Aspirin Enteric Coated 81 Mg Tablet.) 81 mg PO DAILY [facility] Last Admin: 04/19/24 09:12 Dose: 81 mg Documented By: ROCKY Atorvastatin Calcium (Atorvastatin Calcium 20 Mg Tablet) 20 mg PO DAILY [facility] Last Admin: 04/19/24 09:12 Dose: 20 mg Documented By: ROCKY Docusate Sodium (Docusate Sodium 100 Mg Capsule) 100 mg PO BID [facility] Last Admin: 04/19/24 09:12 Dose: 100 mg Documented By: ROCKY Fluticasone/Vilanterol (Fluticasone/Vilanterol 200/25 Blst.W.Dev) 1 puff INHALE RDAILY [facility] Last Admin: 04/19/24 07:30 Dose: 1 puff Documented By: MARTIN Folic Acid (Folic Acid 1 Mg Tablet) 1 mg PO DAILY [facility] Last Admin: 04/19/24 09:12 Dose: 1 mg Documented By: ROCKY Furosemide (Furosemide 20 Mg Tablet) 20 mg PO DAILY PRN; Protocol PRN Reason: for edema Furosemide (Furosemide 20 Mg/2 Ml Vial) 20 mg IVPUSH DAILY [facility]; Protocol Last Admin: 04/19/24 09:13 Dose: 20 mg Documented By: ROCKY Guaifenesin/Dextromethorphan (Guaifenesin Dm 600/30 1 Tab Tab.Er.12h) 1 tab PO BID [facility] Last Admin: 04/19/24 09:12 Dose: 1 tab Documented By: ROCKY Heparin Sodium (Porcine) (Heparin Sodium,Porcine 5,000 Unit/Ml Vial) 5,000 unit SUBCUT Q8H [facility] Last Admin: 04/19/24 09:12 Dose: 5,000 unit Documented By: ROCKY Vancomycin HCl 1,000 mg/ (Sodium Chloride) 270 mls @ 270 mls/hr IV Q24H [facility] Piperacillin Sod/Tazobactam (Sod 4.5 gm/ Sodium Chloride) 100 mls @ 200 mls/hr IV Q6H [facility] Methylprednisolone Sodium Succinate (Methylprednisolone Sod Succ 40 Mg/Ml Vial) 40 mg IVPUSH Q8H [facility] Last Admin: 04/19/24 09:15 Dose: 40 mg Documented By: ROCKY Metoprolol Tartrate (Metoprolol Tartrate 50 Mg Tablet) 50 mg PO BID [facility]; Protocol Last Admin: 04/19/24 09:12 Dose: 50 mg Documented By: ROCKY Morphine Sulfate (Morphine Sulfate 2 Mg/Ml Cartridge) 4 mg IVPUSH Q4H PRN; Protocol PRN Reason: work of breathing Last Admin: 04/19/24 03:35 Dose: 4 mg Documented By: ROGERS Multivitamins/Vitamin C (Multivitamin Tablet) 1 tab PO DAILY [facility] Last Admin: 04/19/24 09:12 Dose: 1 tab Documented By: ROCKY Pharmacy Consult (Consult Rx Vancomycin Dosing) 1 each MISCELLANE DAILY PRN PRN Reason: Consult order Polyethylene Glycol (Polyethylene Glycol 3350 17 Gm Powd.Pack) 17 gm PO DAILY [facility] Last Admin: 04/19/24 09:33 Dose: Not Given Documented By: ROCKY Non-Admin Reason: Patient Refused Sodium Chloride (0.9 % Sodium Chloride Flush 3 Ml Syringe) 3 ml IVFLUSH QSHIFT [facility] Last Admin: 04/19/24 09:33 Dose: 3 ml Documented By: RCOKY Thiamine HCl (Thiamine Hcl 100 Mg Tablet) 100 mg PO DAILY [facility] Last Admin: 04/19/24 09:12 Dose: 100 mg Documented By: ROCKY Vitamin D (Cholecalciferol (Vitamin D3) 25 Mcg Tablet) 25 mcg PO DAILY [facility] Last Admin: 04/19/24 09:12 Dose: 25 mcg Documented By: ROCKY Labs 04/17/24 06:51 04/19/24 07:13 Labs: Laboratory Results - last 24 hr 04/19/24 04/19/24 07:13 12:15 Estim Creat Clear Calc 77.6 Estimated GFR > 60 Random Vancomycin 28.5 H* Assessment and Plan (1) Chronic atrial fibrillation: Status: Acute (2) Pneumonia: Status: Acute Plan Noble Valencia is a 68 y/o man admitted with Acute on chronic respiratory failure secondary to COPD exacerbation and aspiration pneumonia Oxygenation improving on 2L o2 continuous, only uses as needed at home RPP neg continue IV Solu-Medrol will wean to Q12h, continue duonebs cxr 04/18 showed worsening LLL infiltrate/CT chest pending, clinically improving Continue IV zosyn (initiated 04/15/24) , started on IV vancomycin but noted to have elevated trough, will DC vanco Persistent leukocytosis due to steroids ,seen by pulmonary, agree with current management , recommend chest PT with aerobika ,ISS, out of bed to chair and serial chest x-ray if no further improvement of worsening symptoms then bronchoscopy for possible mucous plugging of left base O2 assess for foreign body Chronic Atrial fibrillation Stable ventricular rate, continue lopressor 50 mg bid, avoid digoxin Continue aspirin. Not on anticoagulation likely due to etoh use Syncope + bigeminy/multiple PVCs + bradycardia orthostatic blood pressure negative trop negative echo with recovered EF 55-60% cardiology following> no clear indication for pacemaker at this time. avoid digoxin. Continue low-dose beta-blockers Due to ongoing alcoholism, poor nutritional status continue conservative/noninvasive management HFpEF/right heart failure preserved EF ,elevated BNP Treated with IV Lasix appears euvolemic will hold further diuretics follow clinical course, follow BNP and BMP. Hypokalemia. resolved with replacement Hyperkalemia. resolved after lokelma Hypomagnesemia. resolved with replacement TYSEHA. Likely prerenal Resolved CAD. No chest pain. Continue aspirin and statin. Vitamin-D deficiency. Continue vitamin-D supplementation. Alcohol dependence CIWA low, no evidence of etoh withdrawal , continue thiamine folic acid and multivitamin Moderate Protein calorie malnutrition. BMI 20.8 kg/m2. dietary supplements Code status: Full DVT prophylaxis: Heparin DISPO PT rec pulmonary rehab ongoing inpatient stay for respiratory failure, continuous cardiac and pulmonary monitoring, on IV antibiotic, needs monitoring for possible bronchoscopy if not improving with current treatment. Quality Stroke Does the patient have a stroke diagnosis?: No VTE Prior VTE?: No VTE Risk Level:: Medical - moderate - high VTE Device Contraindication: Treatment Not Indicated VTE Drug Contraindication: N/A - Med Ordered
--- NOTE | 2024-04-19 15:29 | MHC.CM.PN ---
EMR reviewed and per MD rounds, pt is not medically cleared for discharge due to ongoing management of acute hypoxic respiratory failure, and pneumonia requiring IV antibiotics and supplemental O2. Discharge plan continues to be STR/pulmonary rehab once medically cleared.
[2024-04-20] VITALS (10 sets, daily range): BP systolic 93–142; BP diastolic 60–79; PULSE 67–98; RESP 16–23; TEMP 35.9–36.4; O2SAT 91–99; BMI 17.5
[2024-04-20] MEDS: Piperacillin Sodium/Tazobactam 4.5 GM in 0.9 % Sodium Chloride 100 ML IV ×4 (02:15→20:52)
[2024-04-20] MEDS: Morphine Sulfate 2 MG/ML CARTRIDGE 4 MG IVPUSH (03:24)
[2024-04-20] MEDS: methylPREDNISolone Sod Succ 40 MG/ML VIAL IVPUSH ×2 (03:24→15:29)
--- NOTE | 2024-04-20 04:09 | PC.NURSE ---
pt a&ox3 with pleasant affect, RN in room and patient refusing to wear oximask, O2 sats dropping to 70s with increased WOB. patient switched to 2L n/c and patient has been compliant with O2 sat in 90s. Morphine given x2 overnight for increased WOB, effective. patient able to sleep without incident. medicated with antibiotic (zosyn) q 8 per orders. IV to right hand, leaking, removed by RN pressure dressing applied to decrease bleeding from that IV site. [place] catheter remains in place, draining small amounts of concentrated urine. 6 beat run of Richardson max MD notified/aware. patient asymptomatic during episode. pt refused SQH for DVT prophylaxis, refused SCDs. patient assist to commode for bowel movements. all needs met, call styles within reach. safety and comfort maintained.
[2024-04-20 06:56] LABS: Vancomycin Random 13.8 mcg/mL (15-20)
[2024-04-20 06:57] LABS: Hematocrit 37.9 % (42.0-52.0); Hemoglobin 12.6 g/dl (14.0-18.0); Mean Corpuscular HGB Conc 33.2 g/dl (31.0-36.0); Mean Corpuscular Hemoglobin 33.3 pg (27.0-33.0); Mean Corpuscular Volume 100.3 fL (80.0-98.0); Mean Platelet Volume 10.8 fL (9.4-12.4); Platelet Count 266 X10*3/uL (160-400); Red Blood Count 3.78 X10*6/uL (4.60-5.80); Red Cell Distribution Width 14.4 % (11.0-16.0); White Blood Count 12.7 X10*3/uL (4.8-10.8)
[2024-04-20 07:16] LABS: Anion Gap 14 (12-20); B Type Natriuretic Peptide 1080 pg/mL (<100); Blood Urea Nitrogen 22 mg/dL (9-16); Calcium 8.5 mg/dL (8.4-10.2); Carbon Dioxide 30 mmol/L (22-29); Chloride 101 mmol/L (96-108); Creatinine Clr Calc Pharmacy 66.8; Estimated Glomerular Filt Rate > 60; Glucose Random 112 mg/dL (60-115); Potassium 4.6 mmol/L (3.3-5.1); Sodium 140 mmol/L (135-145)
[2024-04-20] MEDS: Fluticasone/Vilanterol 200/25 BLST.W.DEV 1 PUFF INHALE (07:56)
[2024-04-20] MEDS: Albuterol/Iprat 2.5/0.5MG 3 ML AMPUL.NEB INHALE ×3 (07:57→18:44)
[2024-04-20] MEDS: Atorvastatin Calcium 20 MG TABLET PO (09:30)
[2024-04-20] MEDS: guaiFENesin DM 600/30 1 TAB TAB.ER.12H PO ×2 (09:30→20:59)
[2024-04-20] MEDS: Metoprolol Tartrate 50 MG TABLET PO (09:30)
[2024-04-20] MEDS: Folic Acid 1 MG TABLET PO (09:30)
[2024-04-20] MEDS: Docusate Sodium 100 MG CAPSULE PO ×2 (09:30→20:58)
[2024-04-20] MEDS: Aspirin Enteric Coated 81 MG TABLET.DR PO (09:30)
[2024-04-20] MEDS: Cholecalciferol (Vitamin D3) 25 MCG TABLET PO (09:30)
[2024-04-20] MEDS: Multivitamin TABLET 1 TAB PO (09:30)
[2024-04-20] MEDS: Thiamine HCL 100 MG TABLET PO (09:30)
[2024-04-20] MEDS: Heparin Sodium,Porcine 5,000 UNIT/ML VIAL 5000 UNIT SUBCUT ×2 (09:31→17:26)
[2024-04-20] MEDS: 0.9 % Sodium Chloride Flush 3 ML SYRINGE IVFLUSH ×2 (09:32→15:29)
--- NOTE | 2024-04-20 17:29 | P.PNIM_ITS ---
Subjective Subjective Date of Service: 04/21/24 Interval History: Admitted with syncope and bradycardia Complaining of shortness of breath that is chronic but now feels worsened unable to further describe when he feels more shortness of breath, denies PND, no orthopnea, no fevers, no chills, no hemoptysis, no worsening cough, oxygenation stable on 2 L. Review of Systems All other system reviewed and are negative Physical Exam 2 Vital Signs: Vital Signs: Last Vital Signs Temp 97.1 F 04/20/24 16:00 Pulse 80 04/20/24 16:00 Resp 20 04/20/24 16:00 BP 119/62 04/20/24 16:00 Pulse Ox 96 04/20/24 16:00 O2 Del Method Nasal Cannula 04/20/24 16:00 O2 Flow Rate 2 04/20/24 16:00 BMI result Body Mass Index 17.5 Const: Other: General awake alert x3, in no acute distress. Neck no JVD. CVS regular rate rhythm, Respiratory lungs diminished breath sounds, no wheeze, no crackles, no respiratory distress Gastrointestinal abdomen soft, non tender, bowel sounds audible , no rigidity. Extremities no edema. Neuro non focal Skin no rash Psych appropriate affect Objective Data Active Medications Acetaminophen (Acetaminophen 325 Mg Tablet) 975 mg PO Q6H PRN PRN Reason: Pain, Mild (Pain Scale 1-3), fever or headache Albuterol Sulfate (Albuterol Sulfate (0.083%) 2.5 Mg/3 Ml Vial.Neb) 2.5 mg INHALE Q2H PRN PRN Reason: Shortness of Breath/Wheezing Last Admin: 04/19/24 03:36 Dose: 2.5 mg Documented By: GEO Albuterol/Ipratropium (Albuterol/Iprat 2.5/0.5mg 3 Ml Ampul.Neb) 3 ml INHALE RQ4H WHILE AWAKE [facility] Last Admin: 04/20/24 15:12 Dose: Not Given Documented By: MARTIN Non-Admin Reason: Patient Asleep Aspirin (Aspirin Enteric Coated 81 Mg Tablet.) 81 mg PO DAILY [facility] Last Admin: 04/20/24 09:30 Dose: 81 mg Documented By: OLIVIA Atorvastatin Calcium (Atorvastatin Calcium 20 Mg Tablet) 20 mg PO DAILY [facility] Last Admin: 04/20/24 09:30 Dose: 20 mg Documented By: OLIVIA Docusate Sodium (Docusate Sodium 100 Mg Capsule) 100 mg PO BID [facility] Last Admin: 04/20/24 09:30 Dose: 100 mg Documented By: OLIVIA Fluticasone/Vilanterol (Fluticasone/Vilanterol 200/25 Blst.W.Dev) 1 puff INHALE RDAILY [facility] Last Admin: 04/20/24 07:56 Dose: 1 puff Documented By: MARTIN Folic Acid (Folic Acid 1 Mg Tablet) 1 mg PO DAILY [facility] Last Admin: 04/20/24 09:30 Dose: 1 mg Documented By: OLIVIA Furosemide (Furosemide 40 Mg/4 Ml Vial) 40 mg IVPUSH DAILY [facility]; Protocol Last Admin: 04/20/24 12:09 Dose: Not Given Documented By: ROCKY Non-Admin Reason: Physician Held Med Guaifenesin/Dextromethorphan (Guaifenesin Dm 600/30 1 Tab Tab.Er.12h) 1 tab PO BID [facility] Last Admin: 04/20/24 09:30 Dose: 1 tab Documented By: OLIVIA Heparin Sodium (Porcine) (Heparin Sodium,Porcine 5,000 Unit/Ml Vial) 5,000 unit SUBCUT Q8H [facility] Last Admin: 04/20/24 17:26 Dose: 5,000 unit Documented By: ROCKY Piperacillin Sod/Tazobactam (Sod 4.5 gm/ Sodium Chloride) 100 mls @ 200 mls/hr IV Q6H [facility] Last Infusion: 04/20/24 16:13 Dose: Infused Documented By: ROCKY Methylprednisolone Sodium Succinate (Methylprednisolone Sod Succ 40 Mg/Ml Vial) 40 mg IVPUSH Q12H [facility] Last Admin: 04/20/24 15:29 Dose: 40 mg Documented By: ROCKY Metoprolol Tartrate (Metoprolol Tartrate 50 Mg Tablet) 50 mg PO BID [facility]; Protocol Last Admin: 04/20/24 09:30 Dose: 50 mg Documented By: OLIVIA Morphine Sulfate (Morphine Sulfate 2 Mg/Ml Cartridge) 4 mg IVPUSH Q4H PRN; Protocol PRN Reason: work of breathing Last Admin: 04/20/24 03:24 Dose: 4 mg Documented By: JOLLY Multivitamins/Vitamin C (Multivitamin Tablet) 1 tab PO DAILY [facility] Last Admin: 04/20/24 09:30 Dose: 1 tab Documented By: OLIVIA Polyethylene Glycol (Polyethylene Glycol 3350 17 Gm Powd.Pack) 17 gm PO DAILY [facility] Last Admin: 04/20/24 09:31 Dose: Not Given Documented By: OLIVIA Non-Admin Reason: Patient Refused Sodium Chloride (0.9 % Sodium Chloride Flush 3 Ml Syringe) 3 ml IVFLUSH QSHIFT [facility] Last Admin: 04/20/24 15:29 Dose: 3 ml Documented By: ROCKY Thiamine HCl (Thiamine Hcl 100 Mg Tablet) 100 mg PO DAILY [facility] Last Admin: 04/20/24 09:30 Dose: 100 mg Documented By: OLIVIA Vitamin D (Cholecalciferol (Vitamin D3) 25 Mcg Tablet) 25 mcg PO DAILY [facility] Last Admin: 04/20/24 09:30 Dose: 25 mcg Documented By: OLIVIA Labs 04/20/24 06:17 04/20/24 06:17 Labs: Laboratory Results - last 24 hr 04/20/24 06:17 MCV 100.3 H MCH 33.3 H MCHC 33.2 RDW 14.4 Plt Count 266 MPV 10.8 Absolute Nucleated RBC 0.000 Nucleated RBC % (auto) 0.0 Anion Gap 14 Estim Creat Clear Calc 66.8 Estimated GFR > 60 Random Glucose 112 Calcium 8.5 D B-Natriuretic Peptide 1080 H Random Vancomycin 13.8 L Assessment and Plan (1) Chronic atrial fibrillation: Status: Acute (2) Pneumonia: Status: Acute Plan Noble Valencia is a 68 y/o man admitted with Acute on chronic respiratory failure secondary to COPD exacerbation and aspiration pneumonia Oxygenation is stable on 2L o2 continuous, only uses as needed at home RPP neg Will wean IV Solu-Medrol to Q12h, continue duonebs cxr 04/18 showed worsening LLL infiltrate/CT chest pending. Continue IV zosyn (initiated 04/15/24) , started on IV vancomycin but noted to have elevated trough, therefore vanco discontinued Leukocytosis improved likely elevated due to steroids ,seen by pulmonary, agree with current management , recommend chest PT with aerobika ,ISS, out of bed to chair and serial chest x-ray if no further improvement or worsening symptoms then bronchoscopy for possible mucous plugging and to assess for foreign body As needed IV morphine for respiratory distress. Chronic Atrial fibrillation Stable ventricular rate, intermittent episodes of AFib with RVR,on lopressor 50 mg bid, avoid digoxin as per Cardiology Continue aspirin, Not on anticoagulation likely due to etoh use HFpEF/right heart failure Echo showed EF 55-60%,WMA can not be excluded, moderate tricuspid regurgitation, moderately elevated right atrial pressure and pulmonary hypertension significantly elevated BNP Will treat with IV Lasix 40 mg daily, follow BNP and BMP Syncope + bigeminy/multiple PVCs + bradycardia orthostatic blood pressure negative trop negative echo with recovered EF 55-60% cardiology following> no clear indication for pacemaker at this time. avoid digoxin. Continue low-dose beta-blockers Due to ongoing alcoholism, poor nutritional status continue conservative/noninvasive management HFpEF/right heart failure preserved EF ,elevated BNP Treated with IV Lasix appears euvolemic will hold further diuretics follow clinical course, follow BNP and BMP. Hypokalemia. resolved with replacement Hyperkalemia. resolved after lokelma Hypomagnesemia. resolved with replacement TYESHA. Likely prerenal Resolved CAD. No chest pain. Continue aspirin and statin. Vitamin-D deficiency. Continue vitamin-D supplementation. Alcohol dependence CIWA low, no evidence of etoh withdrawal , continue thiamine folic acid and multivitamin Moderate Protein calorie malnutrition. BMI 20.8 kg/m2. dietary supplements Code status: Full DVT prophylaxis: Heparin DISPO PT rec pulmonary rehab ongoing inpatient stay for respiratory failure, continuous cardiac and pulmonary monitoring, on IV antibiotic, needs monitoring for possible bronchoscopy if not improving with current treatment. Quality Stroke Does the patient have a stroke diagnosis?: No VTE Prior VTE?: No VTE Risk Level:: Medical - moderate - high VTE Device Contraindication: Treatment Not Indicated VTE Drug Contraindication: N/A - Med Ordered
[2024-04-20] MEDS: methylPREDNISolone Sod Succ 40 MG/ML VIAL 20 MG IVPUSH (18:21)
[2024-04-20] MEDS: Metoprolol Tartrate 12.5 MG HALFTAB 37.5 MG PO (20:59)
[2024-04-20] MEDS: Albuterol Sulfate (0.083%) 2.5 MG/3 ML VIAL.NEB INHALE (20:59)
[2024-04-21] VITALS (17 sets, daily range): BP systolic 80–136; BP diastolic 56–82; PULSE 78–117; RESP 15–22; TEMP 36–36.7; O2SAT 91–100; BMI 20.7
[2024-04-21] MEDS: Heparin Sodium,Porcine 5,000 UNIT/ML VIAL 5000 UNIT SUBCUT ×3 (02:00→17:45)
[2024-04-21] MEDS: Piperacillin Sodium/Tazobactam 4.5 GM in 0.9 % Sodium Chloride 100 ML IV ×4 (02:10→19:52)
[2024-04-21] MEDS: methylPREDNISolone Sod Succ 40 MG/ML VIAL 20 MG IVPUSH (05:35)
[2024-04-21] MEDS: Docusate Sodium 100 MG CAPSULE PO ×2 (08:26→20:37)
[2024-04-21] MEDS: polyethylene glycoL 3350 17 GM POWD.PACK PO (08:26)
[2024-04-21] MEDS: guaiFENesin DM 600/30 1 TAB TAB.ER.12H PO ×2 (08:27→20:37)
[2024-04-21] MEDS: Thiamine HCL 100 MG TABLET PO (08:27)
[2024-04-21] MEDS: Atorvastatin Calcium 20 MG TABLET PO (08:27)
[2024-04-21] MEDS: Aspirin Enteric Coated 81 MG TABLET.DR PO (08:27)
[2024-04-21] MEDS: Metoprolol Tartrate 12.5 MG HALFTAB 37.5 MG PO (08:27)
[2024-04-21] MEDS: Folic Acid 1 MG TABLET PO (08:27)
[2024-04-21] MEDS: Multivitamin TABLET 1 TAB PO (08:27)
[2024-04-21] MEDS: Cholecalciferol (Vitamin D3) 25 MCG TABLET PO (08:27)
[2024-04-21] MEDS: Furosemide 40 MG/4 ML VIAL IVPUSH (08:27)
[2024-04-21] MEDS: Fluticasone/Vilanterol 200/25 BLST.W.DEV 1 PUFF INHALE (08:28)
[2024-04-21] MEDS: Albuterol/Iprat 2.5/0.5MG 3 ML AMPUL.NEB INHALE ×4 (08:28→18:43)
[2024-04-21] MEDS: 0.9 % Sodium Chloride Flush 3 ML SYRINGE IVFLUSH ×3 (08:39→15:12)
[2024-04-21] MEDS: Morphine Sulfate 2 MG/ML CARTRIDGE 4 MG IVPUSH (08:48)
--- NOTE | 2024-04-21 12:15 | MHC.CLN ---
F/U PT IS MODERATELY MALNOURISHED-NON SEVERE MALNUTRITION IN THE CONTEXT OF BEHAVIOR, SOCIAL OR ENVIRONMENTAL PT WITH DAILY WT FLUCTUATIONS FROM 04/18-04/21 CONTINUE DAILY WTS TO ESTABLISH A BASELINE PO INTAKE VARIABLE CONSUMING EITHER 25% OR 75% DIET RX: CARDIAC CHOPPED-APPROPRIATE PT RECEIVING ENSURE BID TO INCREASE KCALS SUPP PROVIDE 700KCALS, 40G PROTEIN WITH 100% ACCEPTANCE CONTINUE TO MONITOR PO INTAKE AND ENCOURAGE SUPPLEMENTS
[2024-04-21] MEDS: Lidocaine HCl 1 % MPF 5 ML VIAL SUBCUT (13:05)
--- NOTE | 2024-04-21 13:06 | PM.PROC ---
Brief Operative Note Date of procedure: 04/21/24 Pre-op diagnosis: Left pleural effusion Post-op diagnosis: same Procedure: US left thoracentesis 600 cc serous fluid removed and sent for requested analysis. Post CXR does not show any significant pneumothorax. Anesthesia: local
[2024-04-21 13:33] LABS: MN% 59.3 %; PMN% 40.7 %; WBC Pleural Fluid 0.097 X10*3/uL
[2024-04-21 13:34] LABS: RBC Pleural Fluid < 0.002 X10*6/uL
--- NOTE | 2024-04-21 13:56 | MHC.CM.PN ---
Per rounds, pt is not yet ready for DC. DCP is [facility], referrals out, [facility] pt[facility]s first choice, and is following.
[2024-04-21 14:13] LABS: MRSA Nasal PCR NEGATIVE (Negative); SA Nasal PCR NEGATIVE (Negative)
[2024-04-21 14:14] LABS: BF Shift QC OK YES; Lymphocytes Pleural Fluid 26 %; Man Diluent Bkgrd OK YES; Neutrophils Pleural Fluid 47 %; Other Cells Plerual Fl 24 %
--- NOTE | 2024-04-21 15:02 | HO.PM.IMPN ---
Subjective Subjective Date of Service: 04/21/24 Interval History: Being followed for syncope/bradycardia. Complaining of shortness of breath, denies worsening coughing, no fevers, no chills, denies PND, no orthopnea, oxygenation stable on 2 L, tolerating diet no nausea, no vomiting, no abdominal pain No diarrhea. Review of Systems All other systems are reviewed and are negative. Physical Exam Vital Signs: Vital Signs: Last Vital Signs Temp 97.6 F 04/21/24 12:45 Pulse 94 04/21/24 12:50 Resp 19 04/21/24 12:50 BP 99/57 L 04/21/24 12:50 Pulse Ox 94 04/21/24 12:50 O2 Del Method Nasal Cannula 04/21/24 12:50 O2 Flow Rate 2 04/21/24 12:50 BMI result Body Mass Index 20.7 Const: Other: General awake alert x3, in no acute distress. Neck no JVD. CVS regular rate rhythm, Respiratory lungs diminished breath sounds, coarse expirations, no crackles, no respiratory distress Gastrointestinal abdomen soft, non tender, bowel sounds audible , no rigidity. Extremities no edema. Neuro non focal Skin no rash Psych appropriate affect Objective Data Active Medications Acetaminophen (Acetaminophen 325 Mg Tablet) 975 mg PO Q6H PRN PRN Reason: Pain, Mild (Pain Scale 1-3), fever or headache Acetylcysteine (Acetylcysteine 10 % 400 Mg/4 Ml Vial) 400 mg INHALE RBID [facility] Albuterol Sulfate (Albuterol Sulfate (0.083%) 2.5 Mg/3 Ml Vial.Neb) 2.5 mg INHALE Q2H PRN PRN Reason: Shortness of Breath/Wheezing Last Admin: 04/20/24 20:59 Dose: 2.5 mg Documented By: LORY Albuterol/Ipratropium (Albuterol/Iprat 2.5/0.5mg 3 Ml Ampul.Neb) 3 ml INHALE RQ4H WHILE AWAKE [facility] Last Admin: 04/21/24 12:02 Dose: 3 ml Documented By: FALGUNI Aspirin (Aspirin Enteric Coated 81 Mg Tablet.) 81 mg PO DAILY [facility] Last Admin: 04/21/24 08:27 Dose: 81 mg Documented By: SARITA Atorvastatin Calcium (Atorvastatin Calcium 20 Mg Tablet) 20 mg PO DAILY [facility] Last Admin: 04/21/24 08:27 Dose: 20 mg Documented By: SARITA Docusate Sodium (Docusate Sodium 100 Mg Capsule) 100 mg PO BID [facility] Last Admin: 04/21/24 08:26 Dose: 100 mg Documented By: SARITA Fluticasone/Vilanterol (Fluticasone/Vilanterol 200/25 Blst.W.Dev) 1 puff INHALE RDAILY [facility] Last Admin: 04/21/24 08:28 Dose: 1 puff Documented By: FALGUNI Folic Acid (Folic Acid 1 Mg Tablet) 1 mg PO DAILY [facility] Last Admin: 04/21/24 08:27 Dose: 1 mg Documented By: SARITA Furosemide (Furosemide 40 Mg/4 Ml Vial) 40 mg IVPUSH DAILY [facility]; Protocol Last Admin: 04/21/24 08:27 Dose: 40 mg Documented By: SARITA Guaifenesin/Dextromethorphan (Guaifenesin Dm 600/30 1 Tab Tab.Er.12h) 1 tab PO BID [facility] Last Admin: 04/21/24 08:27 Dose: 1 tab Documented By: SARITA Heparin Sodium (Porcine) (Heparin Sodium,Porcine 5,000 Unit/Ml Vial) 5,000 unit SUBCUT Q8H [facility] Last Admin: 04/21/24 08:26 Dose: 5,000 unit Documented By: SARITA Piperacillin Sod/Tazobactam (Sod 4.5 gm/ Sodium Chloride) 100 mls @ 200 mls/hr IV Q6H [facility] Last Admin: 04/21/24 14:33 Dose: 200 mls/hr Documented By: SARITA Metoprolol Tartrate (Metoprolol Tartrate 50 Mg Tablet) 50 mg PO BID [facility]; Protocol Morphine Sulfate (Morphine Sulfate 2 Mg/Ml Cartridge) 3 mg IVPUSH Q4H PRN; Protocol PRN Reason: work of breathing Multivitamins/Vitamin C (Multivitamin Tablet) 1 tab PO DAILY [facility] Last Admin: 04/21/24 08:27 Dose: 1 tab Documented By: SARITA Polyethylene Glycol (Polyethylene Glycol 3350 17 Gm Powd.Pack) 17 gm PO DAILY [facility] Last Admin: 04/21/24 08:26 Dose: 17 gm Documented By: SARITA Sodium Chloride (0.9 % Sodium Chloride Flush 3 Ml Syringe) 3 ml IVFLUSH QSHIFT [facility] Last Admin: 04/21/24 08:39 Dose: 3 ml Documented By: SARITA Thiamine HCl (Thiamine Hcl 100 Mg Tablet) 100 mg PO DAILY [facility] Last Admin: 04/21/24 08:27 Dose: 100 mg Documented By: SARITA Vitamin D (Cholecalciferol (Vitamin D3) 25 Mcg Tablet) 25 mcg PO DAILY [facility] Last Admin: 04/21/24 08:27 Dose: 25 mcg Documented By: SARITA Labs 04/20/24 06:17 04/20/24 06:17 Labs: Laboratory Results - last 24 hr 04/21/24 04/21/24 11:30 12:45 Pleural WBC 0.097 Pleural RBC < 0.002 Pleural Neutrophils 47 Pleural Lymphocytes 26 Pleural Other Cells 24 Nasal Screen MRSA (PCR) NEGATIVE Nasal S. aureus Screen NEGATIVE Nasal MRSA/S.aureus Interp SEE NOTE Microbiology Microbiology Results: Microbiology 04/21/24 12:45 Gram Stain - Final Thoracentesis Fluid Assessment and Plan (1) Chronic atrial fibrillation: Status: Acute (2) Pneumonia: Status: Acute Plan Noble Valencia is a 68 y/o man admitted with Acute on chronic respiratory failure secondary to COPD exacerbation , aspiration pneumonia , and component of right-sided heart failure Oxygenation is stable on 2L , only uses as needed at home RPP neg cxr 04/18 showed worsening LLL infiltrate/CT chest showed moderate left pleural effusion with compressive atelectasis, new infiltrate in lingula and left lower lobe with areas of multiple mucus plugging, new masslike area posterior left upper lobe differential include mass/neoplasm versus consolidation, marked emphysema Continue IV zosyn (initiated 04/15/24) , started on IV vancomycin but noted to have elevated trough, therefore vanco discontinued Will DC IV Solu-Medrol continue duonebs Add Mucomyst 400 mg b.i.d./continue Mucinex Left Thoracocentesis done today, 600 mL fluid removed, fluid gm stain culture pending seen by pulmonary, agree with current management , recommend chest PT with aerobika ,ISS, out of bed to chair and serial chest x-ray if no further improvement or worsening symptoms then bronchoscopy for possible mucous plugging and to assess for foreign body As needed IV morphine for respiratory distress. Continue IV Lasix 40 mg Chronic Atrial fibrillation Stable ventricular rate, intermittent episodes of AFib with RVR,on lopressor 50 mg bid, avoid digoxin as per Cardiology Continue aspirin, Not on anticoagulation likely due to etoh use HFpEF/right heart failure Likely contributing to shortness of breath Echo showed EF 55-60%,WMA can not be excluded, moderate tricuspid regurgitation, moderately elevated right atrial pressure and pulmonary hypertension significantly elevated BNP Continue IV Lasix 40 mg daily, follow BNP and BMP Syncope + bigeminy/multiple PVCs + bradycardia orthostatic blood pressure negative trop negative echo with recovered EF 55-60% cardiology following> no clear indication for pacemaker at this time. avoid digoxin. Continue low-dose beta-blockers Due to ongoing alcoholism, poor nutritional status continue conservative/noninvasive management HFpEF/right heart failure preserved EF ,elevated BNP Treated with IV Lasix appears euvolemic will hold further diuretics follow clinical course, follow BNP and BMP. Hypokalemia. resolved with replacement Hyperkalemia. resolved after lokelma Hypomagnesemia. resolved with replacement TYESHA. Likely prerenal Resolved CAD. No chest pain. Continue aspirin and statin. Vitamin-D deficiency. Continue vitamin-D supplementation. Alcohol dependence CIWA low, no evidence of etoh withdrawal , continue thiamine folic acid and multivitamin Moderate Protein calorie malnutrition. BMI 20.8 kg/m2. dietary supplements Code status: Full DVT prophylaxis: Heparin DISPO PT rec pulmonary rehab ongoing inpatient stay for respiratory failure, continuous cardiac and pulmonary monitoring, on IV antibiotic, needs monitoring for possible bronchoscopy if not improving with current treatment. Quality Stroke Does the patient have a stroke diagnosis?: No VTE Prior VTE?: No VTE Risk Level:: Medical - moderate - high VTE Device Contraindication: Treatment Not Indicated VTE Drug Contraindication: N/A - Med Ordered
[2024-04-21] MEDS: Acetylcysteine 10 % 400 MG/4 ML VIAL INHALE (18:43)
--- NOTE | 2024-04-21 18:58 | PC.NURSE ---
Patient is alert and oriented X3. Patient is remains on tele monitor resulting in A-fib, and patient had episodes with HR increasing up to 140's and then going back to rates of 80-120's. Patient assessed and was asymptomatic denied chest pain, headache, or dizziness. Provider made aware and metoprolol medication adjusted. Patient was on 2L oxygen via N/C and lung sounds were diminished with expiratory wheezing noted. Patient has [place] catheter in place. Patient has foam dressings to bilateral elbows and coccyx for preventative measures. Patient experienced shortness of breath with minimal exertion. Provider at bedside to assess patient and patient received orders to have thoracentesis performed. Patient had thoracentesis performed this afternoon and had 600cc of fluid removed, and patient tolerated well. Dressing remains in placed to L upper back. Patient able to be weaned down to 1L oxygen this evening. Frequent rounding performed and safety maintained.
[2024-04-21] MEDS: Morphine Sulfate 2 MG/ML CARTRIDGE 3 MG IVPUSH (19:47)
[2024-04-21] MEDS: Albuterol Sulfate (0.083%) 2.5 MG/3 ML VIAL.NEB INHALE (23:58)
[2024-04-22] VITALS (10 sets, daily range): BP systolic 100–117; BP diastolic 61–79; PULSE 81–120; RESP 16–20; TEMP 36.1–36.6; O2SAT 92–100; BMI 19.7
[2024-04-22] MEDS: Heparin Sodium,Porcine 5,000 UNIT/ML VIAL 5000 UNIT SUBCUT ×3 (01:23→18:20)
[2024-04-22] MEDS: Piperacillin Sodium/Tazobactam 4.5 GM in 0.9 % Sodium Chloride 100 ML IV ×4 (01:24→20:02)
[2024-04-22] MEDS: 0.9 % Sodium Chloride Flush 3 ML SYRINGE IVFLUSH ×2 (01:24→20:51)
[2024-04-22] MEDS: Albuterol Sulfate (0.083%) 2.5 MG/3 ML VIAL.NEB INHALE (05:17)
[2024-04-22] MEDS: Albuterol/Iprat 2.5/0.5MG 3 ML AMPUL.NEB INHALE ×3 (07:50→18:34)
[2024-04-22] MEDS: Fluticasone/Vilanterol 200/25 BLST.W.DEV 1 PUFF INHALE (07:50)
[2024-04-22] MEDS: Acetylcysteine 10 % 400 MG/4 ML VIAL INHALE ×2 (07:50→18:34)
[2024-04-22 08:31] LABS: Hematocrit 35.1 % (42.0-52.0); Hemoglobin 11.8 g/dl (14.0-18.0); Mean Corpuscular HGB Conc 33.6 g/dl (31.0-36.0); Mean Corpuscular Hemoglobin 33.6 pg (27.0-33.0); Mean Platelet Volume 10.9 fL (9.4-12.4); Platelet Count 216 X10*3/uL (160-400); Red Blood Count 3.51 X10*6/uL (4.60-5.80); Red Cell Distribution Width 14.5 % (11.0-16.0); White Blood Count 12.2 X10*3/uL (4.8-10.8)
[2024-04-22] MEDS: Furosemide 40 MG/4 ML VIAL IVPUSH (08:48)
[2024-04-22 08:53] LABS: Anion Gap 13 (12-20); Blood Urea Nitrogen 30 mg/dL (9-16); Calcium 8.7 mg/dL (8.4-10.2); Carbon Dioxide 31 mmol/L (22-29); Chloride 102 mmol/L (96-108); Creatinine Clr Calc Pharmacy 64.3; Estimated Glomerular Filt Rate > 60; Glucose Random 93 mg/dL (60-115); Potassium 4.2 mmol/L (3.3-5.1); Sodium 142 mmol/L (135-145)
[2024-04-22] MEDS: Digoxin 0.5 MG/2 ML AMPUL 0.25 MG IVPUSH ×3 (09:11→20:50)
[2024-04-22] MEDS: Cholecalciferol (Vitamin D3) 25 MCG TABLET PO (11:07)
[2024-04-22] MEDS: Metoprolol Tartrate 50 MG TABLET PO ×2 (11:08→20:49)
[2024-04-22] MEDS: guaiFENesin DM 600/30 1 TAB TAB.ER.12H PO ×2 (11:09→20:50)
[2024-04-22] MEDS: Multivitamin TABLET 1 TAB PO (11:09)
[2024-04-22] MEDS: Folic Acid 1 MG TABLET PO (11:09)
[2024-04-22] MEDS: Aspirin Enteric Coated 81 MG TABLET.DR PO (11:09)
[2024-04-22] MEDS: Atorvastatin Calcium 20 MG TABLET PO (11:10)
[2024-04-22] MEDS: Docusate Sodium 100 MG CAPSULE PO ×2 (11:10→20:49)
[2024-04-22] MEDS: Thiamine HCL 100 MG TABLET PO (11:11)
[2024-04-22] MEDS: methylPREDNISolone Sod Succ 40 MG/ML VIAL 20 MG IVPUSH (11:18)
--- NOTE | 2024-04-22 11:57 | P.PNIM_ITS ---
Subjective Subjective Date of Service: 04/22/24 Interval History: Complaining of shortness of breath, denies PND, no orthopnea, no worsening cough, no fevers, no chills, tolerating diet, denies anxiety, denies pain, tolerating diet no nausea, no vomiting, no abdominal pain.. Review of Systems All other systems are reviewed and negative Physical Exam 2 Vital Signs: Vital Signs: Last Vital Signs Temp 97.5 F 04/22/24 08:00 Pulse 120 H 04/22/24 08:00 Resp 18 04/22/24 08:00 BP 100/75 04/22/24 08:00 Pulse Ox 98 04/22/24 08:00 O2 Del Method Nasal Cannula 04/22/24 08:00 O2 Flow Rate 2 04/22/24 08:00 BMI result Body Mass Index 19.7 Const: Other: General awake alert x3, does not appear to be in acute distress, no use of accessory muscles, no diaphoresis. Neck no JVD. CVS tachy irregular rate rhythm, Respiratory lungs diminished breath sounds, coarse expirations, no crackles, no respiratory distress Gastrointestinal abdomen soft, non tender, bowel sounds audible , no rigidity. Extremities no edema. Neuro non focal , speech clear, no tremors Skin no rash Psych appropriate affect Objective Data Active Medications Acetaminophen (Acetaminophen 325 Mg Tablet) 975 mg PO Q6H PRN PRN Reason: Pain, Mild (Pain Scale 1-3), fever or headache Acetylcysteine (Acetylcysteine 10 % 400 Mg/4 Ml Vial) 400 mg INHALE RBID [facility] Last Admin: 04/22/24 07:50 Dose: 400 mg Documented By: ZIA Albuterol/Ipratropium (Albuterol/Iprat 2.5/0.5mg 3 Ml Ampul.Neb) 3 ml INHALE RQ6H WHILE AWAKE [facility] Aspirin (Aspirin Enteric Coated 81 Mg Tablet.) 81 mg PO DAILY [facility] Last Admin: 04/22/24 11:09 Dose: 81 mg Documented By: ROCKY Atorvastatin Calcium (Atorvastatin Calcium 20 Mg Tablet) 20 mg PO DAILY [facility] Last Admin: 04/22/24 11:10 Dose: 20 mg Documented By: ROCKY Levalbuterol HCl 2.5 mg/ (Ipratropium [place] 0.5 mg) 0 mg INHALE Q2H PRN PRN Reason: sob Digoxin (Digoxin 0.5 Mg/2 Ml Ampul) 0.25 mg IVPUSH Q6H [facility] Stop: 04/22/24 15:01 Last Admin: 04/22/24 09:11 Dose: 0.25 mg Documented By: ROCKY Docusate Sodium (Docusate Sodium 100 Mg Capsule) 100 mg PO BID [facility] Last Admin: 04/22/24 11:10 Dose: 100 mg Documented By: ROCKY Fluticasone/Vilanterol (Fluticasone/Vilanterol 200/25 Blst.W.Dev) 1 puff INHALE RDAILY [facility] Last Admin: 04/22/24 07:50 Dose: 1 puff Documented By: ZIA Folic Acid (Folic Acid 1 Mg Tablet) 1 mg PO DAILY [facility] Last Admin: 04/22/24 11:09 Dose: 1 mg Documented By: ROCKY Furosemide (Furosemide 40 Mg/4 Ml Vial) 20 mg IVPUSH DAILY [facility]; Protocol Guaifenesin/Dextromethorphan (Guaifenesin Dm 600/30 1 Tab Tab.Er.12h) 1 tab PO BID [facility] Last Admin: 04/22/24 11:09 Dose: 1 tab Documented By: ROCKY Heparin Sodium (Porcine) (Heparin Sodium,Porcine 5,000 Unit/Ml Vial) 5,000 unit SUBCUT Q8H [facility] Last Admin: 04/22/24 08:38 Dose: 5,000 unit Documented By: ROCKY Piperacillin Sod/Tazobactam (Sod 4.5 gm/ Sodium Chloride) 100 mls @ 200 mls/hr IV Q6H [facility] Last Infusion: 04/22/24 11:18 Dose: Infused Documented By: ROCKY Methylprednisolone Sodium Succinate (Methylprednisolone Sod Succ 40 Mg/Ml Vial) 20 mg IVPUSH Q24H [facility] Last Admin: 04/22/24 11:18 Dose: 20 mg Documented By: ROCKY Metoprolol Tartrate (Metoprolol Tartrate 50 Mg Tablet) 50 mg PO BID [facility]; Protocol Last Admin: 04/22/24 11:08 Dose: 50 mg Documented By: ROCKY Comments: pt was refusing med previously Morphine Sulfate (Morphine Sulfate 2 Mg/Ml Cartridge) 2 mg IVPUSH Q4H PRN; Protocol PRN Reason: work of breathing Multivitamins/Vitamin C (Multivitamin Tablet) 1 tab PO DAILY [facility] Last Admin: 04/22/24 11:09 Dose: 1 tab Documented By: ROCKY Polyethylene Glycol (Polyethylene Glycol 3350 17 Gm Powd.Pack) 17 gm PO DAILY [facility] Last Admin: 04/22/24 08:49 Dose: Not Given Documented By: ROCKY Non-Admin Reason: Patient Refused Sodium Chloride (0.9 % Sodium Chloride Flush 3 Ml Syringe) 3 ml IVFLUSH QSHIFT [facility] Last Admin: 04/22/24 08:59 Dose: Not Given Documented By: ROCKY Non-Admin Reason: IV Running Thiamine HCl (Thiamine Hcl 100 Mg Tablet) 100 mg PO DAILY [facility] Last Admin: 04/22/24 11:11 Dose: 100 mg Documented By: ROCKY Vitamin D (Cholecalciferol (Vitamin D3) 25 Mcg Tablet) 25 mcg PO DAILY [facility] Last Admin: 04/22/24 11:07 Dose: 25 mcg Documented By: ROCKY Labs 04/22/24 08:15 04/22/24 08:15 Labs: Laboratory Results - last 24 hr 04/21/24 04/21/24 04/22/24 11:30 12:45 08:15 MCV 100.0 H MCH 33.6 H MCHC 33.6 RDW 14.5 Plt Count 216 MPV 10.9 Absolute Nucleated RBC 0.000 Nucleated RBC % (auto) 0.0 Anion Gap 13 Estim Creat Clear Calc 64.3 Estimated GFR > 60 Random Glucose 93 Calcium 8.7 Pleural WBC 0.097 Pleural RBC < 0.002 Pleural Neutrophils 47 Pleural Lymphocytes 26 Pleural Other Cells 24 Nasal Screen MRSA (PCR) NEGATIVE Nasal S. aureus Screen NEGATIVE Nasal MRSA/S.aureus Interp SEE NOTE Microbiology Microbiology Results: Microbiology 04/21/24 12:45 Gram Stain - Final Thoracentesis Fluid Assessment and Plan (1) Chronic atrial fibrillation: Status: Acute (2) Pneumonia: Status: Acute Plan Noble Valencia is a 68 y/o man admitted with Acute on chronic respiratory failure secondary to COPD exacerbation , aspiration pneumonia , and component of right-sided heart failure. Persistent shortness of breath Oxygenation is stable on 2L , only uses as needed at home RPP neg cxr 7/16 showed worsening LLL infiltrate/CT chest showed moderate left pleural effusion with compressive atelectasis, new infiltrate in lingula and left lower lobe with areas of multiple mucus plugging, new masslike area posterior left upper lobe differential include mass/neoplasm versus consolidation, marked emphysema Continue IV zosyn (initiated 04/15/24) , started on IV vancomycin but noted to have elevated trough, therefore vanco discontinued IV Solu-Medrol 20mg / continue duonebs change to qid and prn xopenex added. Mucomyst 400 mg b.i.d./continue Mucinex Left Thoracocentesis 04/21, 600 mL fluid removed, fluid gm stain culture pending seen by pulmonary, agree with current management , recommend chest PT with aerobika ,ISS, out of bed to chair and serial chest x-ray if no further improvement or worsening symptoms then bronchoscopy for possible mucous plugging and to assess for foreign body As needed IV morphine for respiratory distress. Continue IV Lasix 40 mg Chronic Atrial fibrillation Persistent atrial fibrillation with RVR,on lopressor 50 mg bid, due to soft blood pressures will give digoxin load 0.25mg x 3, continue tele monitor Continue aspirin, Not on anticoagulation likely due to etoh use HFpEF/right heart failure /pulmonary htn Likely contributing to shortness of breath, clinically no acute CHF Echo showed EF 55-60%,WMA can not be excluded, moderate tricuspid regurgitation, moderately elevated right atrial pressure and pulmonary hypertension significantly elevated BNP Continue IV Lasix 20 mg daily, follow BNP and BMP Syncope + bigeminy/multiple PVCs + bradycardia orthostatic blood pressure negative trop negative echo with recovered EF 55-60% cardiology following> no clear indication for pacemaker at this time. avoid digoxin. Continue low-dose beta-blockers Due to ongoing alcoholism, poor nutritional status continue conservative/noninvasive management Hypokalemia. resolved with replacement Hyperkalemia. resolved after lokelma Hypomagnesemia. resolved with replacement TYESHA. Likely prerenal Resolved CAD. No chest pain. Continue aspirin and statin. Vitamin-D deficiency. Continue vitamin-D supplementation. Alcohol dependence CIWA low, no evidence of etoh withdrawal , continue thiamine folic acid and multivitamin Moderate Protein calorie malnutrition. BMI 20.8 kg/m2. dietary supplements Code status: Full DVT prophylaxis: Heparin DISPO PT rec pulmonary rehab ongoing inpatient stay for respiratory failure, continuous cardiac and pulmonary monitoring, on IV antibiotic, needs monitoring for possible bronchoscopy if not improving with current treatment. Quality Stroke Does the patient have a stroke diagnosis?: No VTE Prior VTE?: No VTE Risk Level:: Medical - moderate - high VTE Device Contraindication: Treatment Not Indicated VTE Drug Contraindication: N/A - Med Ordered
[2024-04-22 12:37] LABS: Lactate Dehydrogenase 210 U/L (118-273)
--- NOTE | 2024-04-22 13:24 | PM.PNCARD ---
Subjective Subjective Date of Service: 04/22/24 Principal diagnosis: Atrial fibrillation with rapid ventricular response. Acute respiratory katelyn Interval history: I was requested to see the patient again because of difficult control atrial rate. Patient not able to tolerate higher dose of metoprolol with low blood pressure. Patient has significant hypoxemia and shortness of breath related to his very advanced pulmonary disease with pneumonia. Patient has permanent atrial fibrillation. Was admitted with acute kidney injury and that time had bradycardia and metoprolol and digoxin was withheld. His kidney functions have normalized. Complains of shortness of breath and says not feeling well but not very specific about it. Review of Systems Constitutional: Reports poor appetite and Reports weakness Cardiovascular: Denies chest pain, Denies lightheadedness, Denies palpitations, Reports dyspnea and Reports dyspnea on exertion Respiratory: Reports dyspnea and Reports dyspnea on exertion Gastrointestinal: Reports no additional gastrointestinal complaints Genitourinary: Reports no additional male genitourinary complaints Skin/Breast: Reports system reviewed and no additional complaints, except as docu Reports weakness Endocrine: Denies palpitations Physical Exam Vital Signs: Last Vital Signs Temp 97.5 F 04/22/24 12:00 Pulse 97 04/22/24 12:00 Resp 19 04/22/24 12:00 BP 108/79 04/22/24 12:00 Pulse Ox 92 04/22/24 12:00 O2 Del Method Nasal Cannula 04/22/24 12:00 O2 Flow Rate 2 04/22/24 12:00 BMI result Body Mass Index 19.7 Const General: cooperative, comfortable, alert and awake Nutritional Appearance: cachectic and malnourished Orientation/consciousness: patient oriented x3 Neck Neck: Yes trachea midline, Yes supple and Yes no JVD Resp Effort & Inspection: decreased respiratory effort Auscultation: wheezes, breath sounds absent and diminished lung sounds Cardio Rate: tachycardic Rhythm: abnormal rhythm irregularly irregular Heart sounds: S1 normal heart sound present and S2 normal heart sound present Skin General skin exam: no rashes or lesions noted and ecchymosis Neuro General: patient oriented x3 and no focal motor deficits Objective Labs and Meds 04/22/24 08:15 04/22/24 08:15 Lab results: Laboratory Results - last 24 hr 04/21/24 04/21/24 04/22/24 11:30 12:45 08:15 WBC 12.2 H RBC 3.51 L Hgb 11.8 L Hct 35.1 L MCV 100.0 H MCH 33.6 H MCHC 33.6 RDW 14.5 Plt Count 216 MPV 10.9 Absolute Nucleated RBC 0.000 Nucleated RBC % (auto) 0.0 Sodium 142 Potassium 4.2 Chloride 102 Carbon Dioxide 31 H Anion Gap 13 BUN 30 H Creatinine 0.90 Estim Creat Clear Calc 64.3 Estimated GFR > 60 Random Glucose 93 Calcium 8.7 Lactate Dehydrogenase 210 Pleural WBC 0.097 Pleural RBC < 0.002 Pleural Neutrophils 47 Pleural Lymphocytes 26 Pleural Other Cells 24 Nasal Screen MRSA (PCR) NEGATIVE Nasal S. aureus Screen NEGATIVE Nasal MRSA/S.aureus Interp SEE NOTE Progress Note: A&P Assessment and plan (1) Chronic atrial fibrillation: Status: Acute Assessment and Plan: Atrial fibrillation rapid ventricular response now. Most likely due to withdrawal if his medication. Renal function is normalized. I would digitalize him with digoxin 0.25 mg IV push q.6 x3 dose and start him on 0.125 mg daily. Continue current metoprolol dose. Blood pressure improved scan further uptitrate metoprolol therapy. Switch to Xopenex. Possibly could consider calcium channel jagruti if blood pressure allows. (2) Acute on chronic hypoxic respiratory failure: Status: Acute Assessment and Plan: Patient predominance significant shortness of breath related to most likely pulmonary parenchymal disease and pneumonia. He has advanced COPD and pneumonia. I do not think he is in overt heart failure despite worsening BNP. Will continue with Lasix at 20 mg. Would not uptitrate his diuretic regimen. Overall prognosis guarded. Will follow Time Spent With Patient Time: Total time managing care of this patient today ____ minutes. Progress Note: Quality Stroke Does the patient have a stroke diagnosis?: No Procedures Date of Service Date of Service: 04/22/24
[2024-04-23] VITALS (9 sets, daily range): BP systolic 101–120; BP diastolic 57–72; PULSE 58–105; RESP 18–20; TEMP 36.1–36.6; O2SAT 94–100; BMI 18.9
[2024-04-23] MEDS: levalbuterol HCL 2.5 MG, Ipratropium Bromide 0.5 MG INHALE (00:15)
[2024-04-23] MEDS: Heparin Sodium,Porcine 5,000 UNIT/ML VIAL 5000 UNIT SUBCUT ×2 (00:58→09:40)
[2024-04-23] MEDS: Piperacillin Sodium/Tazobactam 4.5 GM in 0.9 % Sodium Chloride 100 ML IV ×3 (01:28→15:52)
[2024-04-23] MEDS: Fluticasone/Vilanterol 200/25 BLST.W.DEV 1 PUFF INHALE (07:46)
[2024-04-23] MEDS: Acetylcysteine 10 % 400 MG/4 ML VIAL INHALE (07:46)
[2024-04-23] MEDS: Albuterol/Iprat 2.5/0.5MG 3 ML AMPUL.NEB INHALE ×2 (07:46→14:28)
[2024-04-23] MEDS: Docusate Sodium 100 MG CAPSULE PO (09:39)
[2024-04-23] MEDS: Atorvastatin Calcium 20 MG TABLET PO (09:39)
[2024-04-23] MEDS: Folic Acid 1 MG TABLET PO (09:39)
[2024-04-23] MEDS: guaiFENesin DM 600/30 1 TAB TAB.ER.12H PO (09:39)
[2024-04-23] MEDS: Multivitamin TABLET 1 TAB PO (09:39)
[2024-04-23] MEDS: Thiamine HCL 100 MG TABLET PO (09:39)
[2024-04-23] MEDS: Metoprolol Tartrate 50 MG TABLET PO (09:39)
[2024-04-23] MEDS: Aspirin Enteric Coated 81 MG TABLET.DR PO (09:39)
[2024-04-23] MEDS: Cholecalciferol (Vitamin D3) 25 MCG TABLET PO (09:39)
[2024-04-23] MEDS: Furosemide 40 MG/4 ML VIAL 20 MG IVPUSH (09:40)
[2024-04-23] MEDS: 0.9 % Sodium Chloride Flush 3 ML SYRINGE IVFLUSH (09:59)
--- NOTE | 2024-04-23 09:59 | HO.PM.IMPN ---
Subjective Subjective Date of Service: 04/23/24 Interval History: Being followed for acute on chronic hypoxic respiratory failure/pneumonia. Feels better this morning no complaining of shortness of breath, tele monitor showed stable ventricular rate persistent AFib, no increase in oxygen demand, no acute events overnight, tolerating diet with no nausea, no vomiting, no abdominal pain no diarrhea. Review of Systems All other system are reviewed and are negative. Physical Exam Vital Signs: Vital Signs: Last Vital Signs Temp 97.7 F 04/23/24 07:35 Pulse 80 04/23/24 07:48 Resp 18 04/23/24 07:48 BP 112/57 L 04/23/24 09:39 Pulse Ox 98 04/23/24 07:35 O2 Del Method Nasal Cannula 04/23/24 07:35 O2 Flow Rate 2 04/23/24 07:35 BMI result Body Mass Index 18.9 Const: Other: General awake alert x3, no acute distress Anicteric sclera Neck no JVD. CVS tachy irregular rate rhythm, Respiratory lungs diminished breath sounds, coarse expirations, no crackles, no respiratory distress Gastrointestinal abdomen soft, non tender, bowel sounds audible , no rigidity. Extremities no edema. Neuro non focal , speech clear, no tremors Skin no rash Psych appropriate affect Objective Data Active Medications Acetaminophen (Acetaminophen 325 Mg Tablet) 975 mg PO Q6H PRN PRN Reason: Pain, Mild (Pain Scale 1-3), fever or headache Acetylcysteine (Acetylcysteine 10 % 400 Mg/4 Ml Vial) 400 mg INHALE RBID [facility] Last Admin: 04/23/24 07:46 Dose: 400 mg Documented By: VAIBHAV Albuterol/Ipratropium (Albuterol/Iprat 2.5/0.5mg 3 Ml Ampul.Neb) 3 ml INHALE RQ6H WHILE AWAKE [facility] Last Admin: 04/23/24 07:46 Dose: 3 ml Documented By: VAIBHAV Aspirin (Aspirin Enteric Coated 81 Mg Tablet.) 81 mg PO DAILY [facility] Last Admin: 04/23/24 09:39 Dose: 81 mg Documented By: ROCKY Atorvastatin Calcium (Atorvastatin Calcium 20 Mg Tablet) 20 mg PO DAILY [facility] Last Admin: 04/23/24 09:39 Dose: 20 mg Documented By: ROCKY Levalbuterol HCl 2.5 mg/ (Ipratropium [place] 0.5 mg) 0 mg INHALE Q2H PRN PRN Reason: sob Last Admin: 04/23/24 00:15 Dose: 2.5 dose Documented By: LORY Docusate Sodium (Docusate Sodium 100 Mg Capsule) 100 mg PO BID [facility] Last Admin: 04/23/24 09:39 Dose: 100 mg Documented By: ROCKY Fluticasone/Vilanterol (Fluticasone/Vilanterol 200/25 Blst.W.Dev) 1 puff INHALE RDAILY [facility] Last Admin: 04/23/24 07:46 Dose: 1 puff Documented By: VAIBHAV Folic Acid (Folic Acid 1 Mg Tablet) 1 mg PO DAILY [facility] Last Admin: 04/23/24 09:39 Dose: 1 mg Documented By: ROCKY Furosemide (Furosemide 40 Mg/4 Ml Vial) 20 mg IVPUSH DAILY [facility]; Protocol Last Admin: 04/23/24 09:40 Dose: 20 mg Documented By: ROCKY Guaifenesin/Dextromethorphan (Guaifenesin Dm 600/30 1 Tab Tab.Er.12h) 1 tab PO BID [facility] Last Admin: 04/23/24 09:39 Dose: 1 tab Documented By: ROCKY Heparin Sodium (Porcine) (Heparin Sodium,Porcine 5,000 Unit/Ml Vial) 5,000 unit SUBCUT Q8H [facility] Last Admin: 04/23/24 09:40 Dose: 5,000 unit Documented By: ROCKY Piperacillin Sod/Tazobactam (Sod 4.5 gm/ Sodium Chloride) 100 mls @ 200 mls/hr IV Q6H [facility] Last Admin: 04/23/24 09:42 Dose: 200 mls/hr Documented By: ROCKY Methylprednisolone Sodium Succinate (Methylprednisolone Sod Succ 40 Mg/Ml Vial) 20 mg IVPUSH Q24H [facility] Last Admin: 04/22/24 11:18 Dose: 20 mg Documented By: ROCKY Metoprolol Tartrate (Metoprolol Tartrate 50 Mg Tablet) 50 mg PO BID [facility]; Protocol Last Admin: 04/23/24 09:39 Dose: 50 mg Documented By: ROCKY Morphine Sulfate (Morphine Sulfate 2 Mg/Ml Cartridge) 2 mg IVPUSH Q4H PRN; Protocol PRN Reason: work of breathing Multivitamins/Vitamin C (Multivitamin Tablet) 1 tab PO DAILY [facility] Last Admin: 04/23/24 09:39 Dose: 1 tab Documented By: ROCKY Polyethylene Glycol (Polyethylene Glycol 3350 17 Gm Powd.Pack) 17 gm PO DAILY [facility] Last Admin: 04/22/24 08:49 Dose: Not Given Documented By: ROCKY Non-Admin Reason: Patient Refused Sodium Chloride (0.9 % Sodium Chloride Flush 3 Ml Syringe) 3 ml IVFLUSH QSHIFT [facility] Last Admin: 04/23/24 09:59 Dose: 3 ml Documented By: ROCKY Thiamine HCl (Thiamine Hcl 100 Mg Tablet) 100 mg PO DAILY [facility] Last Admin: 04/23/24 09:39 Dose: 100 mg Documented By: ROCKY Vitamin D (Cholecalciferol (Vitamin D3) 25 Mcg Tablet) 25 mcg PO DAILY [facility] Last Admin: 04/23/24 09:39 Dose: 25 mcg Documented By: ROCKY Labs 04/22/24 08:15 04/22/24 08:15 Labs: Laboratory Results - last 24 hr 04/22/24 08:15 Lactate Dehydrogenase 210 Microbiology Microbiology Results: Microbiology 04/21/24 12:45 Gram Stain - Final Thoracentesis Fluid Anaerobic Culture - Preliminary No growth to date. Body Fluid Culture - Preliminary No growth after 1 day Assessment and Plan (1) Chronic atrial fibrillation: Status: Acute (2) Pneumonia: Status: Acute Plan Noble Valencia is a 68 y/o man admitted with Acute on chronic respiratory failure secondary to COPD exacerbation , aspiration pneumonia , and component of right-sided heart failure. shortness of breath improving, oxygenation stable on 2 L, only uses as needed at home RPP neg cxr 04/18 showed worsening LLL infiltrate/CT chest showed moderate left pleural effusion with compressive atelectasis, new infiltrate in lingula and left lower lobe with areas of multiple mucus plugging, new masslike area posterior left upper lobe differential include mass/neoplasm versus consolidation, marked emphysema on IV zosyn (initiated 04/15/24) , started on IV vancomycin but noted to have elevated trough, therefore vanco discontinued on IV Solu-Medrol 20mg / duonebs qid and prn xopenex Mucomyst 400 mg b.i.d./continue Mucinex Left Thoracocentesis 04/21, 600 mL fluid removed, fluid gm stain culture no growth Continue chest PT with MARIAM huynh, Will encourage out of bed to chair transition medications to by mouth will discuss discharge plan with pulmonology. Chronic Atrial fibrillation Persistent atrial fibrillation ventricular rate improved continue Lopressor 50 mg b.i.d. and digoxin 0.125 mg daily , strongly recommend to abstain from alcohol Continue aspirin, Not on anticoagulation likely due to etoh use HFpEF/right heart failure /pulmonary htn Evaluated by Cardiology, no acute CHF Echo showed EF 55-60%,WMA can not be excluded, moderate tricuspid regurgitation, moderately elevated right atrial pressure and pulmonary hypertension significantly elevated BNP on IV Lasix 20 mg daily, will transition to by mouth Lasix 20 mg daily, follow BNP and BMP Syncope + bigeminy/multiple PVCs + bradycardia orthostatic blood pressure negative trop negative echo with recovered EF 55-60% cardiology following> no clear indication for pacemaker at this time. avoid digoxin. Continue low-dose beta-blockers Due to ongoing alcoholism, poor nutritional status continue conservative/noninvasive management Hypokalemia. resolved with replacement Hyperkalemia. resolved after lokelma Hypomagnesemia. resolved with replacement TYESHA. Likely prerenal Resolved CAD. No chest pain. Continue aspirin and statin. Vitamin-D deficiency. Continue vitamin-D supplementation. Alcohol dependence CIWA low, no evidence of etoh withdrawal , continue thiamine folic acid and multivitamin Moderate Protein calorie malnutrition. BMI 20.8 kg/m2. dietary supplements Code status: Full DVT prophylaxis: Heparin DISPO PT rec pulmonary rehab /will discuss with dialysis social worker for rehab bed possible discharge in next 24 hours if remained medically stable. ongoing inpatient stay for respiratory failure, continuous cardiac and pulmonary monitoring, on IV antibiotic, needs monitoring for possible bronchoscopy if not improving with current treatment. Quality Stroke Does the patient have a stroke diagnosis?: No VTE Prior VTE?: No VTE Risk Level:: Medical - moderate - high VTE Device Contraindication: Treatment Not Indicated VTE Drug Contraindication: N/A - Med Ordered
--- NOTE | 2024-04-23 11:57 | P.PNPL_ITS ---
Subjective Subjective Date of Service: 04/23/24 Principal diagnosis: Atrial fibrillation with rapid ventricular response. Acute respiratory katelyn Interval history: The patient was seen on exam. The he had a thoracentesis draining of 600 mL of fluid. Still waiting for the cytology. The LDH and protein from the fluid is still pending. She has to be pretty thin though. The patient been treated for pneumonia. Still appears frail with significant muscle wasting. Does have episodes of shortness of breath. Wants to go home. It is reasonable to switch him to oral antibiotics. He likely will benefit from a bronchoscopy. I did offer him a bronchoscopy previously and had decline. I will go ahead and repeat the chest x-ray at this time. If he continues to be abnormal we can discussed with them again the benefits of a bronchoscopy. Still he appears frail would think that he will need some type of transitional care. Objective Data Labs 04/22/24 08:15 04/22/24 08:15 Labs: Laboratory Results - last 24 hr 04/22/24 08:15 Lactate Dehydrogenase 210 Microbiology Microbiology Results: Microbiology 04/21/24 12:45 Thoracentesis Fluid Gram Stain - Final 04/21/24 12:45 Thoracentesis Fluid Anaerobic Culture - Preliminary No growth to date. 04/21/24 12:45 Thoracentesis Fluid Body Fluid Culture - Final No growth after 2 days 04/13/24 Unknown Urine clean catch - Clean Catch Midstream Urine Culture - Final Review of Systems Constitutional: Denies night sweats Denies change in voice, Denies lip swelling, Denies mouth pain, Reports nasal congestion, Reports nasal discharge and Denies tongue swelling Cardiovascular: Denies chest pain and Reports dyspnea Respiratory: Reports chest congestion, Reports cough, Denies hemoptysis and Reports dyspnea Gastrointestinal: Denies abdominal pain Musculoskeletal: Denies no additional musculoskeletal complaints Denies Neuro-related abnormal movements Psychiatric: Denies no additional psychiatric complaints Hematologic/Lymphatic: Denies easy bleeding and Denies lymphadenopathy Allergic/Immunologic: Denies lip swelling and Denies tongue swelling Physical Exam 2 Vital Signs: Vital Signs: Last Vital Signs Temp 97.8 F 04/23/24 11:13 Pulse 100 04/23/24 11:13 Resp 19 04/23/24 11:13 BP 120/60 04/23/24 11:13 Pulse Ox 100 04/23/24 11:13 O2 Del Method Nasal Cannula 04/23/24 11:13 O2 Flow Rate 2 07/21/24 11:13 BMI result Body Mass Index 18.9 Const: Other: poor hygiene General: cooperative, no acute distress, alert and awake Nutritional Appearance: thin and underweight Orientation/consciousness: patient oriented x3 Neck: Neck: Yes supple Chest: Chest palpation & inspection: normal inspection of the chest Resp: Other: diminished breath sounds Effort & Inspection: normal respiratory effort and able to speak in complete sentences Auscultation: diminished lung sounds Cardio: Rate: regular rate GI: Inspection: No distended Palpation (GI): Soft to palpation and nontender Neuro: General: patient oriented x3 Extrem: General: Yes no pedal edema Psych: Affect: normal affect Procedures Date of Service Date of Service: 04/23/24 Assessment and Plan Assessment and plan (1) Pneumonia: Status: Acute (2) Pleural effusion: Status: Acute (3) Acute on chronic hypoxic respiratory failure: Status: Acute (4) COPD (chronic obstructive pulmonary disease): Problem details: PFT - C/W Severe Obstructive airway disorder - FVC 69% FEV1 24% TLC 78 Residual Vol 127, DLCO Markedly decreased. He claims that his respiratory condition has remained stable. Status: Acute Time Spent With Patient Time: Total time managing care of this patient today ____ minutes. Progress Note: Quality Stroke Does the patient have a stroke diagnosis?: No
[2024-04-23] MEDS: methylPREDNISolone Sod Succ 40 MG/ML VIAL 20 MG IVPUSH (12:14)
[2024-04-23 12:21] LABS: VBG Base Excess 10.6 mmol/L; VBG HCO3 33 mmol/L (22-26); VBG pCO2 36 mmHg; VBG pH 7.56 (7.32-7.43); VBG pO2 159 mmHg
[2024-04-23 12:24] LABS: Venous Blood Gas Refer to POC result
--- NOTE | 2024-04-23 13:27 | PM.PNCARD ---
Subjective Subjective Date of Service: 04/23/24 Principal diagnosis: Atrial fibrillation with rapid ventricular response. Acute respiratory katelyn Interval history: Atrial fibrillation is well controlled after digoxin dose. Pulmonary status is similar. Review of Systems Constitutional: Reports weakness Cardiovascular: Denies chest pain, Denies leg edema, Denies palpitations and Reports dyspnea on exertion Respiratory: Reports dyspnea on exertion and Reports wheezing Reports weakness Endocrine: Denies palpitations Allergic/Immunologic: Reports wheezing Physical Exam Vital Signs: Last Vital Signs Temp 97.8 F 04/23/24 11:13 Pulse 100 04/23/24 11:13 Resp 19 04/23/24 11:13 BP 120/60 04/23/24 11:13 Pulse Ox 100 04/23/24 11:13 O2 Del Method Nasal Cannula 04/23/24 11:13 O2 Flow Rate 2 04/23/24 11:13 BMI result Body Mass Index 18.9 Const General: cooperative, comfortable, alert and awake Nutritional Appearance: cachectic and malnourished Orientation/consciousness: patient oriented x3 Neck Neck: Yes trachea midline, Yes supple and Yes no JVD Resp Effort & Inspection: decreased respiratory effort Auscultation: wheezes, breath sounds absent and diminished lung sounds Cardio Rate: tachycardic Rhythm: abnormal rhythm irregularly irregular Heart sounds: S1 normal heart sound present and S2 normal heart sound present Skin General skin exam: no rashes or lesions noted and ecchymosis Neuro General: patient oriented x3 and no focal motor deficits Objective Labs and Meds 04/22/24 08:15 04/22/24 08:15 Lab results: Laboratory Results - last 24 hr 04/23/24 12:05 VBG pH 7.56 H VBG pCO2 36 VBG pO2 159 VBG HCO3 33 H VBG O2 Saturation 100.0 VBG Base Excess 10.6 Progress Note: A&P Assessment and plan (1) Chronic atrial fibrillation: Status: Acute Assessment and Plan: Chronic persistent atrial fibrillation has been difficult control. Currently heart rate is settled after digoxin loading as well as metoprolol therapy. Continue both. Will start him on digoxin 0.125 mg daily. Follow closely renal function. Digoxin assay in 1 week. (2) Acute on chronic hypoxic respiratory failure: Status: Acute Assessment and Plan: Management of acute respiratory failure as per hospitalist and Pulmonary team. Continue supportive care. He was Xopenex bronchodilators. No clinical evidence of heart failure. Will sign of the case. Thank you for allowing us to partake in his care Time Spent With Patient Time: Total time managing care of this patient today ____ minutes. Progress Note: Quality Stroke Does the patient have a stroke diagnosis?: No Procedures Date of Service Date of Service: 04/23/24
--- NOTE | 2024-04-23 14:22 | MHC.CM.PN ---
Patient has been medically cleared for dc to STR/SNF today. Patient will dc to his first choice SNF/[facility] today at 5PM, via [facility]. CM met with Patient at bedside and addressed IMM with him (original was given to Patient and a copy has been placed on the chart). CM spoke with Patient's Daughter/Sharmin @ [phone] and informed her of the dc plan.
--- NOTE | 2024-04-23 14:48 | P.DS_ITS ---
DS: Providers Provider Date of Service: 04/23/24 Date of admission: 04/12/24 20:38 Primary care physician: Kym Sebastian MD Consults: 04/13/24 08:09 Consult to Cardiology Routine Consulting Provider: [facility] Reason for consultation: syncope Has provider been notified: No 04/15/24 10:55 Consult to Pulmonology Routine Consulting Provider: [facility] Reason for consultation: copd, respiratory failure Has provider been notified: No 04/18/24 16:47 Consult to Pulmonology Routine Consulting Provider: [facility] Reason for consultation: worsening consolidation DS: Diagnosis Discharge Diagnosis (1) Chronic atrial fibrillation: Status: Acute (2) Acute on chronic hypoxic respiratory failure: Status: Acute DS: Summary Hospital Course Hospital Course: History of presenting illness: Date of Service: 04/12/24 Attending physician on admission: Moris Castro Chief Complaint: Loss of consciousness Noble Valencia is a 68 years old man with past medical history significant for HFrEF (30-35%) on digoxin, CAD, ongoing alcohol abuse, atrial fibrillation and COPD was brought to the ED via EMS after his was found on the floor unresponsive between 3-4 PM. Patient is a vague historian he does remember what happened. He denied palpitations, chest pain, fever, chills. dizziness or shortness on breath. He denied any acute gastrointestinal or genitourinary symptoms. He does have chronic back pain. Denied edema to the lower extremities. He has an ongoing alcohol abuse or and unable to tell me how many drinks he drinks daily. He smoke tobacco and denied illicit drug use. In the ED, he was found to have blood pressure 112/58 and intermittent bradycardia with bigeminy. Oxygen saturation is normal on room air are there is no fever. Blood workup showed no leukocytosis. Hemoglobin is 13.2 and platelets 427. INR is 1.4. There is magnesemia of 1.5 but no other significant electrolyte imbalances. BUN is 26 and creatinine 1.37 (prior was 0.84). LFTs are normal. BUN is 555 (similar to prior). Digoxin level is 1.7 (therapeutic). Ethanol level is 42. Viral testing for COVID-19, influenza and RSV is negative. Head and C-spine CT scans are unremarkable. CXR is negative for acute abnormalities. ECG showed multiple PVCs and a heart rate of 67 beats per minute. ED tx: NS 1 L bolus. Magnesium 2 g IV. 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 digoxin was initially held but later restarted since noted to be in AFib with RVR now ventricular rate is stable continue digoxin 0.125 mg daily and metoprolol 50 mg b.i.d., is not on anticoagulation likely due to alcohol use, recommend to continue aspirin, has been strongly advised to abstain from alcohol. Acute on chronic respiratory failure secondary to COPD exacerbation , aspiration pneumonia , and component of right-sided heart failure, treated with 2 L of oxygen that he uses as needed at home, respiratory viral panel was negative, cxr 04/18 showed worsening LLL infiltrate/CT chest showed moderate left pleural effusion with compressive atelectasis, new infiltrate in lingula and left lower lobe with areas of multiple mucus plugging, new masslike area posterior left upper lobe differential include mass/neoplasm versus consolidation, marked emph ysema, because of above abnormalities treated with IV Zosyn, IV Solu Medrol, scheduled and as needed updraft treatment, Mucomyst updraft, chest physical therapy, and underwent left thoracocentesis on April 21 600 mL fluid removed fluid Gram stain and culture sensitivity showed no growth, since oxygenation is stable and patient is feeling better he is being discharged home on 5 more days of Augmentin, prednisone 10 mg daily for 5 more days, recommend to continue updraft treatment and cough medications, patient will need pulmonary rehab therefore being discharged to rehab facility for less than 30 days, recommend to encourage incentive spirometry and continue chest PT with [facility]. Patient was followed closely by bag machine set up operator Dr. Christian recommend outpatient follow-up with him in 1 week. Chronic HFpEF/right heart failure /pulmonary htn, Evaluated by Cardiology, no acute CHF noted, Echo showed EF 55-60%,WMA can not be excluded, moderate tricuspid regurgitation, moderately elevated right atrial pressure and pulmonary hypertension, significantly elevated BNP likely due to pulmonary process recommend to continue Lasix 20 mg daily Noted to have multiple electrolyte abnormalities including Hypokalemia, hypo magnesemia repleted and normalized. resolved with replacement TYESHA. Likely prerenal Resolved CAD status post bypass surgery had no chest pain continue aspirin and statin. Vitamin-D deficiency. Continue vitamin-D supplementation. Alcohol dependence CIWA low, had no evidence of etoh withdrawal , continue thiamine Moderate Protein calorie malnutrition,BMI 20.8 kg/m2, recommend dietary supplements Time Attestation Discharge Coordination Time (in mins): 40 Quality: Safe Use of Opioids Does Pt have an Active Cancer Diagnosis on the Problem List?: No Quality: Stroke Does the patient have a stroke diagnosis?: No Physical Exam Vital Signs: Vital Signs: Last Vital Signs Temp 97.8 F 04/23/24 11:13 Pulse 100 04/23/24 11:13 Resp 20 04/23/24 14:29 BP 120/60 04/23/24 11:13 Pulse Ox 100 04/23/24 11:13 O2 Del Method Nasal Cannula 04/23/24 11:13 O2 Flow Rate 2 04/23/24 11:13 BMI result Body Mass Index 18.9 Const: Other: General awake alert x3, no acute distress Anicteric sclera Neck no JVD. CVS irregular rate rhythm, Respiratory lungs diminished breath sounds, coarse expirations, no crackles, no respiratory distress Gastrointestinal abdomen soft, non tender, bowel sounds audible , no rigidity. Extremities no edema. Neuro non focal , speech clear, no tremors Skin no rash Psych appropriate affect DS: Data Data Completed and Pending Completed studies during hospitalization [Text1]: Procedures Detoxification Services for Substance Abuse Treatment (10/19/20) Pending studies at discharge: Pending at discharge 04/21/24 11:08 Cytology [PTH] Routine Labs on day of discharge: Laboratory Results - last 24 hr 04/23/24 12:05 VBG pH 7.56 H VBG pCO2 36 VBG pO2 159 VBG HCO3 33 H VBG O2 Saturation 100.0 VBG Base Excess 10.6 Preliminary micro results at discharge 04/21/24 12:45 Anaerobic Culture - Preliminary Thoracentesis Fluid No growth to date. Discharge Plan Discharge Anticipated Discharge Date/Time: 04/23/24 14:35 Patient Disposition: Xfer SNF Discharge Diagnosis: Acute on chronic respiratory failure Atrial fibrillation with RVR Syncope Hypokalemia Referrals: [facility] [Outside] - 1 Week Kym Sebastian MD [Primary Care Provider] - 1 Week Discharge Medications: New Mucus DM 30-600 mg Tablet Extended Release 12 Hr 1 tab PO BID Qty: 20 0RF polyethylene glycol 3350 17 gram Powder In Packet 17 g PO DAILY Qty: 30 0RF ipratropium-albuterol 0.5 mg-3 mg(2.5 mg base)/3 mL Solution For Nebulization 3 ml inhalation RQ6H WHILE AWAKE Qty: 90 0RF metoprolol tartrate 50 mg Tablet 50 mg PO BID Qty: 60 0RF Protocol: Hold for SBP/HR < HOLD for SBP < : 90 HOLD for HR < : 60 famotidine 20 mg Tablet 20 mg PO DAILY Qty: 30 0RF levalbuterol HCl 1.25 mg/3 mL Solution For Nebulization 2.5 mg inhalation Q2H PRN (Reason: sob) Qty: 75 0RF ipratropium bromide 0.02 % Solution 0.5 mg inhalation Q2H PRN (Reason: sob) Qty: 75 0RF prednisone 10 mg tablet 10 mg PO DAILY Qty: 5 0RF amoxicillin-pot clavulanate 875-125 mg tablet 1 tab PO BID Qty: 10 0RF Continued digoxin 125 mcg (0.125 mg) tablet 125 mcg PO DAILY Qty: 90 3RF atorvastatin 20 mg tablet 20 mg PO DAILY Qty: 90 3RF fluticasone furoate-vilanterol [Breo Ellipta] 200-25 mcg/dose blister with device 1 inh inhalation Q24H 30 Days Qty: 60 4RF thiamine HCl (vitamin B1) [Vitamin B-1] 100 mg Tablet 100 mg PO DAILY cholecalciferol (vitamin D3) [Vitamin D3] 25 mcg (1,000 unit) Capsule 25 mcg PO DAILY aspirin 81 mg tablet,delayed release (DR/EC) 81 mg PO DAILY albuterol sulfate 90 mcg/actuation HFA aerosol inhaler 2 puff inhalation Q4-6H PRN (Reason: shortness of breath or wheezing) 30 Days Qty: 8.5 3RF Changed furosemide 20 mg tablet 20 mg PO DAILY Qty: 90 3RF Discontinued metoprolol tartrate 100 mg tablet 100 mg PO BID Qty: 225 3RF Discharge Orders: Discharge Order (Routine); Ordered 04/23/24 Ordered By: Coni Aguirre Diet: Low fat, low cholesterol Activity on Discharge: As tolerated Stand Alone Forms: Patient Portal Discharge page Print Language: Citizen Of [place] Care Plan Goals: Discharge to rehab facility for less than 30 days Take Augmentin 1 tablet twice daily for 5 more days Continue DuoNeb updraft 4 times a day and Xopenex updraft as needed for shortness of breath Continue all other medications as prescribed Encourage incentive spirometry q.2 hours as needed Encourage out of bed to chair and ambulation with PT as tolerated Continue 2 L of oxygen Take ensure supplements t.i.d. Health Concerns: History of coronary artery disease status post bypass surgery Persistent atrial fibrillation History of alcoholism strongly recommend to abstain from alcohol Plan of Treatment: Outpatient follow-up with pulmonology Dr. Christian call for appointment in 1 week Outpatient follow-up with PCP Assessment: As above
--- NOTE | 2024-04-23 17:12 | PC.NURSE ---
called [facility] to give RN -RN hand off report @ 17:11, but no answer
[2024-04-24 08:08] LABS: LDH Pleural Fluid 43
== END 2024-04-23 17:15 | disposition skilled nursing facility (03) | DRG 177 ==
LOC: HO.ED 19:53 → HO.EDOVER 20:44 → HO.IMC 04-13 13:36
PROVIDERS: Hospitalist; Internal Medicine Cardiovascular Disease; Nurse Practitioner Acute Care; Physician Assistant; Physician Assistant Medical; Admitting Provider Internal Medicine; Emergency Provider Internal Medicine; PCP Student in an Organized Health Care Education/Training Program; Visit Provider Hospitalist
DX: J69.0 Pneumonitis due to inhalation of food and vomit (principal); J96.21 Acute and chronic respiratory failure with hypoxia; J44.1 Chronic obstructive pulmonary disease with (acute) exacerbation; I50.22 Chronic systolic (congestive) heart failure; N17.9 Acute kidney failure, unspecified; E44.0 Moderate protein-calorie malnutrition; Z68.1 Body mass index [BMI] 19.9 or less, adult; I48.21 Permanent atrial fibrillation; J91.8 Pleural effusion in other conditions classified elsewhere; I25.10 Atherosclerotic heart disease of native coronary artery without angina pectoris; I49.3 Ventricular premature depolarization; I07.1 Rheumatic tricuspid insufficiency; F10.20 Alcohol dependence, uncomplicated; I27.29 Other secondary pulmonary hypertension; E87.5 Hyperkalemia; I50.812 Chronic right heart failure; E87.6 Hypokalemia; E83.42 Hypomagnesemia; F17.210 Nicotine dependence, cigarettes, uncomplicated; Y90.2 Blood alcohol level of 40-59 mg/100 ml; Z20.822 Contact with and (suspected) exposure to COVID-19; Z91.199 Patient's noncompliance with other medical treatment and regimen due to unspecified reason; Z99.81 Dependence on supplemental oxygen; Z95.1 Presence of aortocoronary bypass graft; Z71.6 Tobacco abuse counseling; Z79.82 Long term (current) use of aspirin; Z79.899 Other long term (current) drug therapy
CPT/HCPCS: 0241U; 32555; 36415; 70450; 71045; 71250; 72125; 80048; 80053; 80162; 80202; 80307; 81001; 82550; 82565; 82803; 83605; 83615; 83690; 83735; 83880; 84132; 84157; 84484; 85025; 85027; 85610; 87070; 87073; 87086; 87205; 87633; 87640; 87641; 88112; 88305; 89051; 92526; 92610; 93005; 93306; 94640; 97163; 97530; 99285; J0456; J1160; J1644; J1940; J2270; J2543; J2919; J3370; J3371; J3411; J3475; J3480; Q9957

== ENCOUNTER 2024-04-12 20:38 | Outpatient (BNV) | payer MEDICARE, MEDICAID, SELFPAY | END 2024-04-21 12:30 | PROVIDERS: Admitting Provider Internal Medicine; Emergency Provider Internal Medicine; PCP Student in an Organized Health Care Education/Training Program; Visit Provider Physician Assistant Surgical | DX: J90 Pleural effusion, not elsewhere classified (principal) | CPT/HCPCS: 32555 ==

== ENCOUNTER 2024-04-12 20:38 | Outpatient (BNV) | payer MEDICARE, MEDICAID, SELFPAY | END 2024-04-13 07:00 | PROVIDERS: Admitting Provider Internal Medicine; Emergency Provider Internal Medicine; PCP Student in an Organized Health Care Education/Training Program; Visit Provider Internal Medicine Cardiovascular Disease | DX: I36.1 Nonrheumatic tricuspid (valve) insufficiency (principal) | CPT/HCPCS: 93306 ==

== ENCOUNTER → 2024-04-12 20:38 | Outpatient (BNV) | payer MEDICARE, MEDICAID, SELFPAY | PROVIDERS: Admitting Provider Internal Medicine; Emergency Provider Internal Medicine; PCP Student in an Organized Health Care Education/Training Program; Visit Provider Internal Medicine Cardiovascular Disease | DX: I48.20 Chronic atrial fibrillation, unspecified (principal); J96.21 Acute and chronic respiratory failure with hypoxia | CPT/HCPCS: 93010; 99223; 99233 ==

== ENCOUNTER → 2024-04-12 20:38 | Outpatient (BNV) | payer MEDICARE, MEDICAID, SELFPAY | PROVIDERS: Admitting Provider Internal Medicine; Emergency Provider Internal Medicine; PCP Student in an Organized Health Care Education/Training Program; Visit Provider Internal Medicine | DX: J69.0 Pneumonitis due to inhalation of food and vomit (principal); J90 Pleural effusion, not elsewhere classified; J96.21 Acute and chronic respiratory failure with hypoxia; J44.0 Chronic obstructive pulmonary disease with (acute) lower respiratory infection | CPT/HCPCS: 99223; 99233 ==

== ENCOUNTER → 2024-04-12 20:38 | Outpatient (BNV) | payer MEDICARE, MEDICAID, SELFPAY | PROVIDERS: Admitting Provider Internal Medicine; Emergency Provider Internal Medicine; PCP Student in an Organized Health Care Education/Training Program; Visit Provider Internal Medicine | DX: I48.20 Chronic atrial fibrillation, unspecified (principal); J96.21 Acute and chronic respiratory failure with hypoxia; J44.1 Chronic obstructive pulmonary disease with (acute) exacerbation; J69.0 Pneumonitis due to inhalation of food and vomit | CPT/HCPCS: 99223; 99232; 99233; 99239; 99499 ==

== ENCOUNTER 2024-05-02 15:06 | Outpatient (AMB) | payer MEDICARE, MEDICAID, SELFPAY ==
--- NOTE | 2024-05-02 15:10 | MHC.OFFVIS ---
Vital Signs 05/02/24 15:11 Height 5 ft 7 in BP 98/58 L Blood Pressure Location Lt brachial Position Sitting Pulse 81 Pulse Source Pulse Oximeter Pulse Oximetry (%) 93 Oxygen Delivery Method Room Air Intake Visit Reasons: hosp follow up Intake Note: pt is here for follow up from , he is in rehab right now and states he is at his baseline with breathing prior to hospital stay. oxygen as needed at rehab and at home. Roadway Designer Required: No Allergies No Known Allergies [No Known Allergies*] Allergy (Verified 05/02/24 15:38) Medication List - Last Reconciled 05/02/24 by Shakira Galvez MD albuterol sulfate 90 mcg/actuation 2 puffs inhalation Q4-6H PRN 30 days amoxicillin-pot clavulanate 875-125 mg 1 tab PO BID aspirin 81 mg PO DAILY atorvastatin 20 mg PO DAILY Breo Ellipta 200-25 mcg/dose (fluticasone furoate-vilanterol) 1 inh inhalation Q24H 30 days NS cholecalciferol (vitamin D3) (Vitamin D3) 25 mcg PO DAILY dextromethorphan-guaifenesin 30-600 mg (Mucus DM) 1 tab PO BID digoxin 125 mcg PO DAILY famotidine 20 mg PO DAILY furosemide 20 mg PO DAILY ipratropium bromide 0.5 mg (2.5 mL) inhalation Q2H PRN ipratropium-albuterol 0.5 mg-3 mg(2.5 mg base)/3 mL 3 mL inhalation RQ6H WHILE AWAKE levalbuterol HCl 2.5 mg (6 mL) inhalation Q2H PRN metoprolol tartrate 50 mg See Protocol PO BID polyethylene glycol 3350 17 grams PO DAILY thiamine HCl (vitamin B1) (Vitamin B-1) 100 mg PO DAILY Do you need a note to return to daycare/school/sports/work: No HPI HPI hosp follow up: Details: This 68 years old gentleman, was recently treated at [facility] for bilateral pneumonia , left pleural effusion, and respiratory failure. He was considered to have aspiration pneumonia, initially treated with IV Zosyn then changed to oral Augmentin. He also needed IV Solu-Medrol followed by prednisone taper. He had a slow recovery and then sent to rehab unit. Patient was on oxygen while in the hospital, and at the rehab unit he is using oxygen only p.r.n.. He is slowly progressing, Still has frequent bouts of cough and chest congestion. He has no fever chills or chest pain He remains weak, not able to walk independently , but slowly improving. [facility] Medical History Pleural effusion Pneumonia Respiratory failure with hypoxia History of IA (myocardial infarction) History of seizure due to alcohol withdrawal Atrial fibrillation with slow ventricular response Hypoxemia CAP (community acquired pneumonia) Chronic respiratory failure Atherosclerotic cardiovascular disease CHF (congestive heart failure) CAD (coronary artery disease) History of ischemic cardiomyopathy Tobacco abuse Alcohol abuse Hypercholesteremia COPD (chronic obstructive pulmonary disease) Surgical History History of coronary artery bypass graft x 3 (~2012) History of surgery on lower extremity (~2018) Social History Household Members: Family Household Members Other:: CHILDREN,GRANDCHILDREN Housing: House Do you presently have visiting nurse or other home services: No Alcohol intake: current Alcohol intake frequency: 0-2 drinks per day Alcohol type: hard liquor Patient Tobacco Use Status: Former Tobacco user Tobacco use type: Cigarette Cigarette Packs Per Day: 0.5 Cigarettes Per Day: 7 Years Smoked: 40+ e-Cigarette/Vaping Use: Never Used Second Hand Smoke Exposure: No Advance Directives Date on File: 11/08/20 service: No Current occupational status: retired Review of Systems Const All systems reviewed & are unremarkable except as noted in HPI and below Physical Exam Vital Signs: Last Vital Signs Pulse 81 05/02/24 15:11 BP 98/58 L 05/02/24 15:11 Pulse Ox 93 05/02/24 15:11 Oxygen Delivery Method Room Air 05/02/24 15:11 Const Other: Chronically sick looking of a thin build. Not well kempt. General: comfortable, no acute distress, alert and awake Orientation/consciousness: patient oriented x3 HEENT Head: Yes normal to inspection General nose exam: No nasal polyps present and No nasal discharge present Face and sinus: Yes sinuses nontender Mouth: oropharynx normal Throat: Yes posterior oropharynx normal Eyes General: appearance normal, both eyes and all related structures Neck Neck: Yes normal visual inspection, Yes no lymphadenopathy, Yes trachea midline and Yes no JVD Thyroid: Thyroid normal Chest Chest palpation & inspection: abnormal inspection of the chest (Has mid sternal scar from previous cardiac surgery), normal palpation of entire chest wall and no tenderness Resp Other: Percussion note is resonant, breath sounds are quite distant with prolonged expiratory phase. But no wheezes or rhonchi are heard today Cardio Palpation: normal PMI Rate: not tachycardic Rhythm: abnormal rhythm (Atrial fibrillation) Heart sounds: no gallops and no murmurs Peripheral pulses: Peripheral pulses 2+ throughout GI Palpation (GI): Soft to palpation, Tenderness to palpation present (GI), No hepatosplenomegaly present and Palpable mass present Auscultation: normal bowel sounds Back/Spine/Pelvis Thoracic/Lumbar Spine: thoracic and lumbar spine normal to inspection Skin General skin exam: no rashes or lesions noted Neuro General: patient oriented x3 and no focal motor deficits Cranial nerves: Yes CN's II-XII intact bilaterally Extrem General: Yes normal to inspection, Yes no clubbing, cyanosis or edema and Yes no calf tenderness Psych Speech and movement: Normal speech and movement present Results Reviewed Results Reviewed: Hospital course reviewed Assessment & Plan Assessment & Plan (1) COPD (chronic obstructive pulmonary disease): Comment: PFT - C/W Severe Obstructive airway disorder - FVC 69% FEV1 24% TLC 78 Residual Vol 127, DLCO Markedly decreased. Status post bilateral pneumonia, most likely aspiration type, resolved. His respiratory status did worsen with the pneumonia but now coming back to his baseline slowly. Code(s): J44.9 - Chronic obstructive pulmonary disease, unspecified Category: Medical Qualifiers: COPD type: COPD with acute lower respiratory infection Qualified Code(s): J44.0 - Chronic obstructive pulmonary disease with (acute) lower respiratory infection Plan: Ipratropium-albuterol solution in the nebulizer Q 6 hours while awake. Levalbuterol 2.5 mg in 6 mL solution in the nebulizer Q 2-4 hours p.r.n. for acute distress. O2 2 L/minute p.r.n. if O2 sat is below 90% In the past he has been on Breo 200-25, may resume that 1 inhalation daily. (2) Tobacco abuse: Comment: LONG TIME SMOKER, currently in rehab place not smoking. Code(s): Z72.0 - Tobacco use Category: Medical Plan: Talked with the patient and encouraged him not to go back to smoking when he goes home (3) Alcohol abuse: Comment: HE DOES HAVE HISTORY OF ALCOHOL ABUSE WELL, HOPEFULLY WILL ABSTAIN FROM DRINKING WHEN HE GOES HOME. Code(s): F10.10 - Alcohol abuse, uncomplicated Category: Social Hx Plan: TALKED TO THE PATIENT, COUNSELED HIM NOT DO RESUME DRINKING ALCOHOL (4) Pleural effusion: Comment: HE HAD SECONDARY PLEURAL EFFUSION, PARAPNEUMONIC,, ON THE LEFT SIDE, RESOLVED AFTER THORACENTESES. Code(s): J90 - Pleural effusion, not elsewhere classified Category: Medical Plan: NO FURTHER TREATMENT NEEDED (5) Pneumonia: Comment: HAD BILATERAL MULTILOBAR PNEUMONIA CONSIDERED TO BE MOST LIKELY ASPIRATION PNEUMONIA. TREATED WITH THE IV BROAD-SPECTRUM ANTIBIOTICS FOLLOWED BY ORAL AUGMENTIN. THE PNEUMONIA HAS CLINICALLY RESOLVED. Code(s): J18.9 - Pneumonia, unspecified organism Category: Medical Qualifiers: Pneumonia type: aspiration pneumonia Aspiration pneumonia type: unspecified Laterality: left Lung location: lower lobe of lung Qualified Code(s): J69.0 - Pneumonitis due to inhalation of food and vomit Plan: PATIENT IS A HIGH ASPIRATION RISK. HE NEEDS TO BE ON THICKENED FLUID DIET , .AND FOLLOW WITH THE ASPIRATION PRECAUTIONS Coding Level of Care Code Est Pt Level 4 (49618) Diagnoses Chronic obstructive pulmonary disease with acute lower respiratory infection J44.0 COPD type: COPD with acute lower respiratory infection Tobacco abuse Z72.0 Alcohol abuse F10.10 Pleural effusion J90 Aspiration pneumonia of left lower lobe, unspecified aspiration pneumonia type J69.0 Pneumonia type: aspiration pneumonia Aspiration pneumonia type: unspecified Laterality: left Lung location: lower lobe of lung
[2024-05-02 15:11] VITALS: BP 98/58; PULSE 81; O2SAT 93
== END 2024-05-02 15:40 | disposition home or self-care (01) ==
PROVIDERS: PCP Student in an Organized Health Care Education/Training Program; Visit Provider Internal Medicine
DX: J44.0 Chronic obstructive pulmonary disease with (acute) lower respiratory infection (principal); Z72.0 Tobacco use; F10.10 Alcohol abuse, uncomplicated; J90 Pleural effusion, not elsewhere classified; J69.0 Pneumonitis due to inhalation of food and vomit
CPT/HCPCS: 99214

== ENCOUNTER → 2024-05-02 15:06 | Outpatient (BNVA) | payer MEDICARE, MEDICAID, SELFPAY | PROVIDERS: PCP Student in an Organized Health Care Education/Training Program; Visit Provider Internal Medicine | DX: J44.0 Chronic obstructive pulmonary disease with (acute) lower respiratory infection (principal); J90 Pleural effusion, not elsewhere classified; J69.0 Pneumonitis due to inhalation of food and vomit; F10.10 Alcohol abuse, uncomplicated; F17.210 Nicotine dependence, cigarettes, uncomplicated | CPT/HCPCS: 99212 ==

== ENCOUNTER 2024-11-13 11:53 | Inpatient (IN) | payer MEDICARE, MEDICAID, SELFPAY ==
[2024-11-13] VITALS (10 sets, daily range): BP systolic 117–154; BP diastolic 55–84; PULSE 65–115; RESP 16–22; TEMP 36.4–36.9; O2SAT 82–96; BMI 19.8
--- NOTE | ~2024-11-13 | XR_ITS ---
EXAMINATION: XR PELVIS 1-2 VIEWS, XR HIP 2 OR MORE VIEWS RIGHT HISTORY: PAIN COMPARISON: There are no prior studies for comparison. FINDINGS: A single AP view of the pelvis and 2 additional views of the right hip are submitted. The bones are osteopenic. There is no fracture or dislocation. The joint space is maintained. There are surgical clips in the right inguinal region. XR/XR pelvis 1-2V IMPRESSION: Osteopenia. No evidence of fracture of the right hip or pelvis. Electronically signed by: Albaro Avila MD 11/13/2024 02:18 PM [facility]
--- NOTE | ~2024-11-13 | XR_ITS ---
EXAMINATION: XR PELVIS 1-2 VIEWS, XR HIP 2 OR MORE VIEWS RIGHT HISTORY: PAIN COMPARISON: There are no prior studies for comparison. FINDINGS: A single AP view of the pelvis and 2 additional views of the right hip are submitted. The bones are osteopenic. There is no fracture or dislocation. The joint space is maintained. There are surgical clips in the right inguinal region. XR/XR hip RT min 2V IMPRESSION: Osteopenia. No evidence of fracture of the right hip or pelvis. Electronically signed by: Albaro Avila MD 11/13/2024 02:18 PM [facility]
--- NOTE | ~2024-11-13 | CT_ITS ---
EXAMINATION: CT HEAD WITHOUT CONTRAST CLINICAL INFORMATION: Fall, head strike COMPARISON: 04/12/2024 TECHNIQUE: Contiguous axial imaging was performed from the skull base to vertex without intravenous administration of contrast. This CT examination was performed using dose optimization techniques as appropriate, variously including the following: *Automated exposure control *Adjustment of mA and/or kV according to patient size (this includes techniques or standardized protocols for targeted exams where dose is matched to indication/reason for exam; i.e. extremities or head) *Use of iterative reconstruction technique FINDINGS: There is no evidence of intracranial hemorrhage or extra-axial fluid collection. There is no mass effect, or edema. No CT evidence of acute territorial infarct. Ventricles, sulci, and cisterns are normal in size and configuration for patient age. No hydrocephalus. No midline shift. Negative hyperdense MCA sign. Negative insular ribbon sign. Mild periventricular and deep white matter hypoattenuation is consistent with mild small vessel ischemic changes. Normal pituitary. Mild atheromatous calcification of the bilateral carotid siphons and V4 segments vertebral arteries bilaterally. Globes and orbital contents image normally. There are bilateral lens replacements. No extracranial soft tissue abnormalities. The paranasal sinuses, mastoid air cells, and tympanic cavities are normally aerated. No suspicious bony abnormalities. There are no acute fractures evident. Severe arthritic changes left greater than right TM joints. CT/CT head/brain wo IV con IMPRESSION: No acute intracranial abnormalities. No fracture evident. Electronically signed by: Francisco Odell MD 11/13/2024 04:22 PM [facility]
--- NOTE | ~2024-11-13 | XR_ITS ---
EXAMINATION: XR KNEE, LEFT CLINICAL INFORMATION: pain COMPARISON: 03/18/2020. TECHNIQUE: Two views of the left knee. FINDINGS: There is diffuse osteopenia. Lateral plate and screw fixation of the distal femur, without periprosthetic loosening or hardware abnormality. Of note, one of the inferior screws extends 5 mm medial to the cortex of the medial femoral condyle. There is to be overlying soft tissue prominence. There is no evidence of acute fracture, dislocation, or suspicious bone lesion. Old fracture deformity distal femur. Tricompartmental osteoarthritis of the knee joint. No significant joint effusion although lateral view is obliqued. There are vascular calcifications. XR/XR knee LT 2V IMPRESSION: 1. Osteopenia. No acute fracture. 2. Lateral fixation hardware distal femur intact without loosening. Of note, an inferior screw extends 5 mm medial to the cortex of the medial femoral condyle, into the medial soft tissues. There is overlying soft tissue prominence. Correlate with visual appearance. 3. Tricompartmental degenerative arthritis. Electronically signed by: Francisco Odell MD 11/13/2024 02:22 PM [facility]
--- NOTE | ~2024-11-13 | CT_ITS ---
CLINICAL HISTORY: pain, fall 3 views left knee Comparison: CR/MI/SR - XR KNEE LT 2V - 11/13/24 14:04 EST Findings: Evaluation is limited by the severe osteopenia and beam hardening artifact from the prosthesis. Chronic fracture of the distal femur. There is mild cortical irregularity of the posterior aspect of the distal femur. Intact compression plate and multiple screws of the distal femur. Small joint effusion. There is mild degenerative change. No radiopaque foreign body. Impression: Limited evaluation due to severe osteopenia. Mild cortical irregularity of the posterior aspect of the distal femur. Acute fracture can not be excluded. Further evaluation by MRI as indicated. This document has been electronically signed by: Dominic Wetzel MD on 11/15/2024 14:59:20
--- NOTE | ~2024-11-13 | XR_ITS ---
EXAMINATION: XR FEMUR, LEFT CLINICAL INFORMATION: pain COMPARISON: LT Knee radiograph performed concurrently. TECHNIQUE: AP and lateral views of the left femur were obtained. FINDINGS: Osteopenia. No acute fracture, dislocation, or suspicious bone lesion. Lateral fixation plate and screws distal metadiaphysis of the femur, without definite loosening or hardware failure. Refer to the dedicated knee x-ray. Mild arthritic changes right hip joint. Mild enthesopathy greater trochanter. Soft tissues demonstrate vascular calcifications but are otherwise normal. XR/XR femur LT 2V IMPRESSION: Intact left femur. Osteopenia. Refer to dedicated left knee x-ray. Electronically signed by: Francisco Odell MD 11/13/2024 02:24 PM [facility]
--- NOTE | ~2024-11-13 | CT_ITS ---
EXAMINATION: CT CERVICAL SPINE WITHOUT CONTRAST CLINICAL INFORMATION: Fall, head strike COMPARISON: 04/12/2024. TECHNIQUE: Spiral CT examination of the cervical spine performed in axial plane without contrast. Multiplanar reformatted imaging constructed from the axial data set. This CT examination was performed using dose optimization techniques as appropriate, variously including the following: *Automated exposure control *Adjustment of mA and/or kV according to patient size (this includes techniques or standardized protocols for targeted exams where dose is matched to indication/reason for exam; i.e. extremities or head) *Use of iterative reconstruction technique FINDINGS: There is a minimal levoconvex scoliosis, apex at C3. Compensatory right convex scoliosis of the cervicothoracic junction. Old fracture of the dens, with mildly irregular healing and bony fusion. Craniocervical junction intact otherwise. Moderate narrowing of the central canal at the C1 level. There is no acute fracture, evidence of traumatic subluxation, compression deformity, or suspicious bone lesion. Severe degenerative disc changes noted C3-4 with sclerosis of the endplates. Moderate changes noted C5-6. There is normal facet alignment. There are multilevel bilateral degenerative facet changes. Severe degenerative arthropathy both TM joints. No prevertebral soft tissue abnormality. Lung apices demonstrate advanced emphysema, with interlobular septal thickening consistent with CHF. CT/CT cervical spine wo IV con IMPRESSION: 1. No CT evidence of acute cervical spine fracture or injury. 2. Exaggerated lordosis. Mild S-shaped scoliosis. 3. Old fracture of the dens, with irregular healing resulting in moderate central canal stenosis at C1 level. 4. Degenerative spondylosis. Electronically signed by: Francisco Odell MD 11/13/2024 04:27 PM [facility]
--- NOTE | ~2024-11-13 | CT_ITS ---
EXAMINATION: CT ANGIOGRAM CHEST CLINICAL INFORMATION: Hypoxia COMPARISON: None available. TECHNIQUE: Multiple axial images were obtained through the chest after the administration of 50 mL of Omnipaque 350 intravenous contrast. Extensive vascular post-processing including two-dimensional and three-dimensional reformatted images were created and reviewed on an independent workstation. This CT examination was performed using dose optimization techniques as appropriate, variously including the following: *Automated exposure control *Adjustment of mA and/or kV according to patient size (this includes techniques or standardized protocols for targeted exams where dose is matched to indication/reason for exam; i.e. extremities or head) *Use of iterative reconstruction technique DLP: 1145 mGy/cm. FINDINGS: Vascular: There is good opacification of pulmonary artery and its branches . No intraluminal filling defect or narrowing seen. The thoracic aorta is of normal caliber. There is a three-vessel branching of the aortic arch with mild axis cortical calcifications through the arch. There is no pericardial effusion. Mild coronary artery calcifications are present. Nonvascular: There is diffuse centrilobular emphysema with multiple ill-defined nodules left upper lobe, axial image 10/25, 14/25, radicular nodular changes right upper lobe subpleural based axial image 28/5. The largest ill-defined nodule left upper lobe measures 1 cm with mild tenting of major fissure. Bibasilar compressive atelectasis is noted. There is a large bulla in anterior segment right lower lobe. There is focal dependent airspace consolidation/atelectasis right upper lobe posterior segment no abnormal size mediastinal lymph nodes seen. Central tracheal and bronchial airways widely patent. Thyroid lobes are symmetrical and normal. Axilla is unremarkable. The chest wall is unremarkable. Visualized liver and spleen, pancreas and adrenal glands are unremarkable. CT/CT angio chest PE protocol IMPRESSION: No evidence of PE. No evidence of aortic aneurysm. Diffuse centrilobular emphysema with dependent atelectasis in both lung bases. There is a small area of airspace consolidation/atelectasis in the dependent posterior segment right upper lobe. There are ill-defined nodules in the left upper lobe suspicious for primary or metastatic lung lesion. The largest lesion measures 1 cm on axial image 15/21. Fleischner guidelines were followed. Electronically signed by: Mariano Jovel MD 11/13/2024 04:32 PM EST RP
--- NOTE | 2024-11-13 12:20 | ECG_ITS ---
Test Reason : HYPOXIA Blood Pressure : */* mmHG Vent. Rate : 96 BPM Atrial Rate : * BPM P-R Int : * ms QRS Dur : 86 ms QT Int : 342 ms P-R-T Axes : * 96 266 degrees QTcB Int : 432 ms Atrial fibrillation with premature ventricular or aberrantly conducted complexes Rightward axis ST & T wave abnormality, consider inferolateral ischemia Abnormal ECG When compared with ECG of 12-Apr-2024 19:37, Previous ECG has undetermined rhythm, needs review T wave inversion now evident in Lateral leads Referred By: Rafael Longoria Electronically Signed By: NANCY SUAREZ MD
--- NOTE | 2024-11-13 12:20 | PC.RT ---
pt sats on room air 82% placed on 2 l sats 85% increased to 3 liters. sats at 89%
--- NOTE | 2024-11-13 12:22 | ED_ITS ---
HPI - General Adult General Chief complaint: Fall Stated complaint: SLIPP OUT OF CHAIR,L KNEE PAIN/INJURY IN PAST PER Source: patient Mode of arrival: EMS Limitations: other History of Present Illness HPI narrative: This is a 69-year-old man with a past medical history of CHF, CAD, alcohol abuse, atrial fibrillation and COPD who was brought in by EMS for evaluation after a fall. Patient endorses drinking alcohol today. Patient states that he stood up and he fell. He states that he does not recall exactly how he fell. He states that he is having pain in his left knee as a result of his fall. He states no chest pain. He states ?my breathing is no worse than it usually is ?. He states no headache, neck pain, paresthesias chest pain, abdominal pain, back pain or nausea/vomiting. He states no GI or symptoms. Related Data Home Medications ?Medication ?Instructions ?Recorded ?Confirmed aspirin 81 mg tablet,delayed 81 mg PO DAILY 08/12/20 05/02/24 release thiamine HCl (vitamin B1) 100 mg 100 mg PO DAILY 11/05/20 05/02/24 tablet (Vitamin B-1) cholecalciferol (vitamin D3) 25 25 mcg PO DAILY 11/07/20 05/02/24 mcg (1,000 unit) capsule (Vitamin D3) Previous Rx's ?Medication ?Instructions ?Recorded albuterol sulfate 90 mcg/actuation 2 puff inhalation Q4-6H PRN 11/09/23 aerosol inhaler shortness of breath or wheezing 30 days #8.5 grams atorvastatin 20 mg tablet 20 mg PO DAILY #90 tabs 01/10/24 Breo Ellipta 200 mcg-25 mcg/dose 1 inh inhalation Q24H SEVERE copd 04/07/24 powder for inhalation (fluticasone 30 days #60 ea furoate-vilanterol) dextromethorphan-guaifenesin 30 1 tab PO BID #20 tabs 04/23/24 mg-600 mg tablet extended [id number] hr (Mucus DM) famotidine 20 mg tablet 20 mg PO DAILY #30 tabs 04/23/24 ipratropium 0.5 mg-albuterol 3 mg 3 ml inhalation RQ6H WHILE AWAKE 04/23/24 (2.5 mg base)/3 mL nebulization #90 mL soln ipratropium bromide 0.02 % 0.5 mg (2.5 mL) inhalation Q2H PRN 04/23/24 solution for inhalation sob #75 mL levalbuterol HCl 1.25 mg/3 mL 2.5 mg (6 mL) inhalation Q2H PRN 04/23/24 solution for nebulization sob #75 mL polyethylene glycol 3350 17 gram 17 g PO DAILY #30 ea 04/23/24 oral powder packet furosemide 20 mg tablet 20 mg PO DAILY PRN for edema #90 05/03/24 tabs digoxin 125 mcg (0.125 mg) tablet 125 mcg PO DAILY #90 tabs 11/01/24 metoprolol tartrate 100 mg tablet 100 mg PO BID #60 tabs 11/07/24 Allergies Allergy/AdvReac Type Severity Reaction Status Date / Time No Known Allergies Allergy Verified 11/13/24 12:21 [No Known Allergies*] Review of Systems 2 Review of Systems: ROS as per HPI [facility] Past Medical History Medical History Pleural effusion Pneumonia Respiratory failure with hypoxia History of PA (myocardial infarction) History of seizure due to alcohol withdrawal Atrial fibrillation with slow ventricular response Hypoxemia CAP (community acquired pneumonia) Chronic respiratory failure Atherosclerotic cardiovascular disease CHF (congestive heart failure) CAD (coronary artery disease) History of ischemic cardiomyopathy Tobacco abuse Alcohol abuse Hypercholesteremia COPD (chronic obstructive pulmonary disease) Surgical History History of coronary artery bypass graft x 3 (~2012) History of surgery on lower extremity (~2017) Social History Social History Household Members: Family Household Members Other:: CHILDREN,GRANDCHILDREN Housing: House Do you presently have visiting nurse or other home services: No Alcohol intake: current Alcohol intake frequency: 3 or more drinks per day Alcohol type: hard liquor Patient Tobacco Use Status: Former Tobacco user Tobacco use type: Cigarette Cigarette Packs Per Day: 0.5 Cigarettes Per Day: 7 Years Smoked: 40+ Smoked in Last 30 Days: No e-Cigarette/Vaping Use: Never Used Second Hand Smoke Exposure: No Use of substances other than those prescribed or required for medical reasons: No Advance Directives: Yes Advance Directives on File: Yes Advance Directives Date on File: 11/08/20 Do you have a plan to hurt others: No Plan service: No Current occupational status: retired Physical Exam ED Vital Signs: Vital Signs - 24 hr 11/13/24 12:19 11/13/24 12:37 11/13/24 14:48 Temperature 97.6 F 98.0 F Pulse Rate 80 65 80 Respiratory Rate 20 16 16 Blood Pressure 117/59 L 123/63 Pulse Oximetry 82 L 95 Oxygen Delivery Method Room Air Nasal Cannula Oxygen Flow Rate 4 11/13/24 16:49 Temperature Pulse Rate 115 H Respiratory Rate 20 Blood Pressure Pulse Oximetry Oxygen Delivery Method Oxygen Flow Rate BMI result Body Mass Index 19.8 Gen: NAD, AOx3 HEENT: NCAT, EOMI, normal conjunctiva CV: RRR, 2+ bilateral radial and DP/PT pulses Pulm: Diminished lung sounds GI: Soft, NTND, no rebound, guarding or rigidity MSK: Bilateral contusion to the left medial knee with ecchymosis, bilateral lower extremity compartments are soft with intact overlying skin Neuro: Grossly non focal Skin: Warm, dry Medications Administered Discontinued Medications Generic Name Dose Route Start Last Admin Trade Name Freq PRN Reason Stop Dose Admin Albuterol Sulfate 12 puff 11/13/24 12:31 11/13/24 12:36 Albuterol Sulfate 90 Mcg 8 Gm Inhaler INHALE 11/13/24 12:32 12 puff ONCE ONE Administration Albuterol Sulfate 8 puff 11/13/24 16:47 11/13/24 16:48 Albuterol Sulfate 90 Mcg 8 Gm Inhaler INHALE 11/13/24 16:48 8 puff ONCE ONE Administration Fentanyl 50 mcg 11/13/24 14:03 11/13/24 14:21 Fentanyl Citrate/Pf 100 Mcg/2 Ml Vial IVPUSH 11/13/24 14:04 50 mcg ONCE ONE Administration Protocol Furosemide 20 mg 11/13/24 15:01 11/13/24 15:48 Furosemide 20 Mg/2 Ml Vial IVPUSH 11/13/24 15:02 20 mg ONCE ONE Administration Protocol Sodium Chloride 1,000 mls @ 999 mls/hr 11/13/24 12:30 11/13/24 14:41 Ns IV 11/13/24 13:30 Infused .Q1H1M JASPAL Infusion Iohexol 100 ml 11/13/24 16:08 11/13/24 16:08 Iohexol 350 Mg/Ml 100 Ml Infus..Btl IV 11/13/24 16:09 65 ml ONCE ONE Administration Medical Decision Making Medical Decision Making [facility] Narrative: Differential diagnosis includes, but is not limited to contusion, hematoma, fracture, strain, sprain, traumatic intracranial hemorrhage, traumatic cervical spine injury, pneumonia, viral URI, COPD exacerbation, pulmonary embolism, pneumothorax, acute decompensated congestive heart failure. Patient is afebrile and hemodynamically stable on room air. Exam is benign and reassuring. 1631 - on initial examination, auscultation of the lungs revealed diminished lung sounds. The patient was noted to be hypoxic and provided supplemental oxygen with improved SpO2. On re-examination following initial bronchodilator, lungs demonstrate diffuse expiratory wheezes with prolonged expiratory phase. Will request additional bronchodilator therapy from soil conservation technician at this time it and also provide 125 mg IV Solu-Medrol given suspected component of COPD exacerbation. I reviewed the patient's labs, EKG, CT imaging and viral testing as below. Patient is provided fentanyl for analgesia. Given patient is elevated BNP and suspected component of acute decompensated congestive heart failure as contributory to this patient's acute hypoxic respiratory failure, he is provided 20 mg IV Lasix. I discussed patient's case and management with the admitting hospitalist and patient was accepted for further workup and management. Critical Care Time: A total of 45 minutes spent in direct patient care with coordinating critical resuscitation, procedures, reviewing records, discussing with consultants, reviewing labs, and/or managing patient. Admission/Observation Consideration of admission/observation: Escalation of care including admission/observation considered Consult Healthcare Provider Management of the patient was discussed with: Hospitalist Lab Data [facility] Lab Attestation statement: I reviewed the patient's lab results. I independently reviewed interpreted the patient's labs, which demonstrates stable chronic anemia with hemoglobin 12.6 (previous 10.9), acute respiratory acidosis on a venous blood gas with pH 7.25, pCO2 58 and HCO3 26, metabolic panel is unremarkable, BNP 10 27, lipase within normal limits, magnesium within normal limits, digoxin within normal limits at 1.5, ethyl alcohol 89. Patient is negative for COVID-19, influenza and RSV. 11/13/24 14:24 11/13/24 14:24 Labs: Lab Results 11/13/24 11/13/24 Range/Units 14:24 14:29 WBC 10.2 (4.8-10.8) X10*3/uL RBC 4.08 L D (4.60-5.80) X10*6/uL Hgb 12.6 L (14.0-18.0) g/dl Hct 39.0 L D (42.0-52.0) % MCV 95.6 (80.0-98.0) fL MCH 30.9 (27.0-33.0) pg MCHC 32.3 (31.0-36.0) g/dl RDW 18.0 H (11.0-16.0) % Plt Count 215 D (160-400) X10*3/uL MPV 10.0 (9.4-12.4) fL Immature Gran % (Auto) 0.4 (0.0-0.4) % Neut % (Auto) 82.5 H (45-73) % Lymph % (Auto) 6.7 L (20-40) % [place] % (Auto) 9.7 (2-11) % Eos % (Auto) 0.2 (0-4) % Baso % (Auto) 0.5 (0-2) % Lymph # (Auto) 0.7 L (1.2-4.9) X10*3/uL [place] # (Auto) 1.0 (0.1-1.2) X10*3/uL Eos # (Auto) 0.0 (0.0-0.4) X10*3/uL Baso # (Auto) 0.1 (0.0-0.2) X10*3/uL Abs Immat Gran (auto) 0.04 H (0.00-0.03) X10*3/uL Absolute Neuts (auto) 8.4 H (2.0-8.3) x10*3/uL Absolute Nucleated RBC 0.000 (0.0-0.012) X10*3/uL Nucleated RBC % (auto) 0.0 (0.0-0.2) /100WBC VBG pH 7.25 L (7.32-7.43) VBG pCO2 58 mmHg VBG pO2 27 mmHg VBG HCO3 26 (22-26) mmol/L VBG O2 Saturation < 30.0 % VBG Base Excess -1.8 mmol/L Sodium 139 (135-145) mmol/L Potassium 4.5 (3.3-5.1) mmol/L Chloride 108 (96-108) mmol/L Carbon Dioxide 22 (22-29) mmol/L Anion Gap 14 (12-20) BUN 24 H (9-16) mg/dL Creatinine 1.00 (0.5-1.4) mg/dL Estim Creat Clear Calc 58.9 Estimated GFR > 60 Random Glucose 82 (60-115) mg/dL Calcium 8.2 L (8.4-10.2) mg/dL Magnesium 1.7 (1.6-2.6) mg/dL Total Bilirubin 0.6 (0.0-1.0) mg/dL AST 33 (5-37) U/L ALT 7 (0-40) U/L Alkaline Phosphatase 135 H (39-117) U/L B-Natriuretic Peptide 1027 H (<100) pg/mL Total Protein 6.8 (6.5-8.0) g/dL Albumin 3.7 (3.5-5.0) g/dL Lipase < 4 L (8-78) U/L Hold Red Top See Note Digoxin 1.5 (0.8-2.0) ng/mL Ethyl Alcohol 89 mg/dL Influenza Type A (PCR) NEGATIVE (Negative) Influenza Type B (PCR) NEGATIVE (Negative) RSV RNA Qual (PCR) NEGATIVE (Negative) SARS-CoV-2 RNA (RT-PCR) NEGATIVE (Negative) Independent Interpretation I performed an independent interpretation of an: EKG and CT Scan Interpretation: I independently reviewed and interpreted the patient's EKG, which demonstrates atrial fibrillation at 96 beats per minute, QRS 86, QTC 432, PVCs noted, no STEMI. I independently reviewed and interpreted the patient's CT imaging of the head and cervical spine, which demonstrates no acute intracranial hemorrhage or cervical spine fracture/subluxation. Radiology Impression Discussion of test interpretation with radiology: I have reviewed the radiologist's reading. Radiologist Impression: XR/XR hip RT min 2V IMPRESSION: Osteopenia. No evidence of fracture of the right hip or pelvis. Electronically signed by: Albaro Avila MD 11/13/2024 02:18 PM [facility] Dictated By: Albaro Avila MD Signed By: <Electronically signed by Albaro Avila MD in OV> 11/13/24 1418 XR/XR femur LT 2V IMPRESSION: Intact left femur. Osteopenia. Refer to dedicated left knee x-ray. Electronically signed by: Francisco Odell MD 11/13/2024 02:24 PM EST RP Dictated By: Francisco Odell MD Signed By: <Electronically signed by Francisco Odell MD in OV> 11/13/24 1424 XR/XR pelvis 1-2V IMPRESSION: Osteopenia. No evidence of fracture of the right hip or pelvis. Electronically signed by: Albaro Avila MD 11/13/2024 02:18 PM EST RP Dictated By: Albaro Avila MD Signed By: <Electronically signed by Albaro Avila MD in OV> 11/13/24 1418 XR/XR knee LT 2V IMPRESSION: 1. Osteopenia. No acute fracture. 2. Lateral fixation hardware distal femur intact without loosening. Of note, an inferior screw extends 5 mm medial to the cortex of the medial femoral condyle, into the medial soft tissues. There is overlying soft tissue prominence. Correlate with visual appearance. 3. Tricompartmental degenerative arthritis. Electronically signed by: Francisco Odell MD 11/13/2024 02:22 PM EST RP Dictated By: Francisco Odell MD Signed By: <Electronically signed by Francisco Odell MD in OV> 11/13/[address]/CT head/brain wo IV con IMPRESSION: No acute intracranial abnormalities. No fracture evident. Electronically signed by: Francisco Odell MD 11/13/2024 04:22 PM EST RP Dictated By: Francisco Odell MD Signed By: <Electronically signed by Francisco Odell MD in OV> 11/13/[address]/CT cervical spine wo IV con IMPRESSION: 1. No CT evidence of acute cervical spine fracture or injury. 2. Exaggerated lordosis. Mild S-shaped scoliosis. 3. Old fracture of the dens, with irregular healing resulting in moderate central canal stenosis at C1 level. 4. Degenerative spondylosis. Electronically signed by: Francisco Odell MD 11/13/2024 04:27 PM [facility] Dictated By: Francisco Odell MD Signed By: <Electronically signed by Francisco Odell MD in OV> 11/13/24 1588 Discharge Plan Discharge Clinical Impression: Alcohol use, Pneumonia, Acute respiratory failure with hypoxia and hypercapnia, Elevated brain natriuretic peptide (BNP) level Patient Disposition: Admitted As Inpatient Prescriptions: No Action atorvastatin 20 mg tablet 20 mg PO DAILY Qty: 90 3RF fluticasone furoate-vilanterol [Breo Ellipta] 200-25 mcg/dose blister with device 1 inh inhalation Q24H 30 Days Qty: 60 4RF furosemide 20 mg tablet 20 mg PO DAILY PRN (Reason: for edema) Qty: 90 3RF digoxin 125 mcg (0.125 mg) tablet 125 mcg PO DAILY Qty: 90 3RF metoprolol tartrate 100 mg tablet 100 mg PO BID Qty: 60 3RF thiamine HCl (vitamin B1) [Vitamin B-1] 100 mg Tablet 100 mg PO DAILY cholecalciferol (vitamin D3) [Vitamin D3] 25 mcg (1,000 unit) Capsule 25 mcg PO DAILY Mucus DM 30-600 mg Tablet Extended Release 12 Hr 1 tab PO BID Qty: 20 0RF polyethylene glycol 3350 17 gram Powder In Packet 17 g PO DAILY Qty: 30 0RF ipratropium-albuterol 0.5 mg-3 mg(2.5 mg base)/3 mL Solution For Nebulization 3 ml inhalation RQ6H WHILE AWAKE Qty: 90 0RF famotidine 20 mg Tablet 20 mg PO DAILY Qty: 30 0RF levalbuterol HCl 1.25 mg/3 mL Solution For Nebulization 2.5 mg inhalation Q2H PRN (Reason: sob) Qty: 75 0RF ipratropium bromide 0.02 % Solution 0.5 mg inhalation Q2H PRN (Reason: sob) Qty: 75 0RF aspirin 81 mg tablet,delayed release (DR/EC) 81 mg PO DAILY albuterol sulfate 90 mcg/actuation HFA aerosol inhaler 2 puff inhalation Q4-6H PRN (Reason: shortness of breath or wheezing) 30 Days Qty: 8.5 3RF Print Language: Georgian
[2024-11-13] MEDS: 0.9 % Sodium Chloride 1,000 ML 999 ML IV (12:27)
[2024-11-13] MEDS: Albuterol Sulfate 90 MCG 8 GM INHALER 12 PUFF INHALE (12:36)
[2024-11-13] MEDS: fentaNYL citrate/PF 100 MCG/2 ML VIAL 50 MCG IVPUSH (14:21)
--- NOTE | 2024-11-13 14:21 | PC.NURSE ---
Patient screaming in pain on XR table, verbal order for 50mcg fentanyl IV taken from Dr. harley & given, remainder of vial wasted w/ second KIRAN Allison in [facility], vial thrown in sharps bin unable to scan.
[2024-11-13 14:31] LABS: MANUAL DIFF FLAG NO
[2024-11-13 14:36] LABS: Venous Blood Gas Refer to POC result
[2024-11-13 14:37] LABS: Basophils Absolute Auto 0.1 X10*3/uL (0.0-0.2); Basophils Percent Auto 0.5 % (0-2); Eosinophils Percent Auto 0.2 % (0-4); Hemoglobin 12.6 g/dl (14.0-18.0); Imm Gran Abs Auto 0.04 X10*3/uL (0.00-0.03); Imm Gran Pct Auto 0.4 % (0.0-0.4); Lymphocytes Absolute Auto 0.7 X10*3/uL (1.2-4.9); Lymphocytes Percent Auto 6.7 % (20-40); Mean Corpuscular HGB Conc 32.3 g/dl (31.0-36.0); Mean Corpuscular Hemoglobin 30.9 pg (27.0-33.0); Mean Corpuscular Volume 95.6 fL (80.0-98.0); Monocytes Percent Auto 9.7 % (2-11); Neutrophils Absolute Auto 8.4 x10*3/uL (2.0-8.3); Neutrophils Percent Auto 82.5 % (45-73); Platelet Count 215 X10*3/uL (160-400); Red Blood Count 4.08 X10*6/uL (4.60-5.80); White Blood Count 10.2 X10*3/uL (4.8-10.8)
[2024-11-13 14:38] LABS: VBG Base Excess -1.8 mmol/L; VBG HCO3 26 mmol/L (22-26); VBG O2 % Saturation < 30.0 %; VBG pCO2 58 mmHg; VBG pH 7.25 (7.32-7.43); VBG pO2 27 mmHg
--- OUTSIDE RECORDS SUMMARY | 2024-11-13 14:48 | XMS_ITS | Encounter Summary ---
Author Organization [employer] Address [address] [place] [address] Care Team Providers Care Chrome Polisher Name Role Phone Kym Sebastian MD Primary Care Provider [phone] Encounter Details Date Type Department Care Team (Late st Contact Info) Description 06/21/[address] [facility] MED & PEDS [address] [place] [address] Martina Mcgregor LPN Social History Tobacco Use Types Packs/Day Years Used Date Smoking Tobacco: Never Assessed Sex and Gender Information Value Date Recorded Sex Assigned at Male 08/03/2022 10:20 AM EDT Legal Sex Male 10:20 AM EDT Gender Identity Male 08/03/2022 10:20 AM EDT Sexual Orientation Straight 08/03/2022 10 :20 AM EDT documented as of this encounter Plan of Treatment Not on file documented as of this encounter Procedures Procedure Name Priority Date/Time Associated Diagnosis Comments CBC WITH AUTO DIFFERENTIAL Routine 10/22/2023 2:38 PM EST DIGOXIN Routine 10/22/2023 2:38 PM EST COMPREHENSIVE METABOLIC PANEL Routine 10/22/2023 2:38 PM EST documented in this encounter Results * (ABNORMAL) CBC auto differential (10/22/2023 2:38 PM EST) White Blood Count 8.9 4.8 - 10.8 X10*3/uL [facility] Red Blood Count 4.10(L) 4.60 - 5.80 X10*6/uL [facility] Hemoglobin 14.1 14.0 - 18.0 g/dl [facility] Hematocrit 41.5(L) 42.0 - 52.0 % [facility] Mean Corpuscular Volume 101.2(H) 80.0 - 98.0 fL [facility] Mean Corpuscular Hemoglobin 34.4(H) 27.0 - 33.0 pg [facility] Mean Corpuscular HGB Conc 34.0 31.0 - 36.0 g/dl [facility] Red Cell Distribution Width 13.5 11.0 - 16.0 % [facility] Platelet Count 269 160 - 400 X10*3/uL [facility] Mean Platelet Volume 10.2 9.4 - 12.4 fL [facility] Neutrophils Percent Auto 69.9 45 - 73 % [facility] Imm Gran Pct Auto 0.4 0.0 - 0.4 % [facility] Lymphocytes Percent Auto 15.0(L) 20 - 40 % [facility] Monocytes Percent Auto 12.1(H) 2 - 11 % [facility] Eosinophils Percent Auto 1.5 0 - 4 % [facility] Basophils Percent Auto 1.1 0 - 2 % [facility] NRBC Pct Auto 0.0 0.0 - 0.2 /100WBC [facility] Neutrophils Absolute Auto 6.2 2.0 - 8.3 x10*3/uL [facility] Imm Gran Abs Auto 0.04(H) 0.00 - 0.03 X10*3/uL [facility] Lymphocytes Absolute Auto 1.3 1.2 - 4.9 X10*3/uL [facility] Monocytes Absolute Auto 1.1 0.1 - 1.2 X10*3/uL [facility] Eosinophils Absolute Auto 0.1 0.0 - 0.4 X10*3/uL [facility] Basophils Absolute Auto 0.1 0.0 - 0.2 X10*3/uL [facility] NRBC Abs Auto 0.000 0.0 - 0.012 X10*3/uL [facility] 10/22/2023 2:38 PM EST 10/22/2023 2:38 PM EST Generic External Data Provider LAB BLOOD ORDERAB LES Final Result Performing Organization Address [facility] Co de Phone Number [facility] [address] [place] [address] [phone] * (ABNORMAL) Digoxin (10/22/2023 2:38 PM EST) Pathologist [facility] Digoxin <0.2(L) 0.8 - 2.0 ng/mL [facility] Comment:Assay modified to mi nimize interference from aldosteroneantagonists (e.g. spironolactone and canrenone). 10/22/2023 2:38 PM EST 10/22/2023 2:38 PM EST [employer] External Data Provider LAB BLOOD ORDERAB LES Final Result Performing Organization Address [facility]/ZIP Co de Phone Number [facility] [address] [place] [address] [phone] * (ABNORMAL) Comprehensive Metabolic Panel (10/22/2023 2:38 PM EST) Pathologist [facility] Sodium 137 135 - 145 mmol/L [facility] Potassium 3.4 3.3 - 5.1 mmol/L [facility] Chloride 99 96 - 108 mmol/L [facility] Carbon Dioxide 25 22 - 29 mmol/L [facility] Anion Gap 16 12 - 20 [facility] Urea Nitrogen (BUN) 11 9 - 16 mg/dL [facility] Creatinine, Serum 0.84 0.5 - 1.4 mg/dL [facility] Estimated Glomerular Filt Rate >60 [facility] Comment:NOTE: For -Am erican individuals, multiply the result by 1.210.Chronic Kidney Disease: Estimated GFR < 60 mL/min/1.48x0Hrdsbh Kidney Disease: Estimated GFR < 15 mL/min/1.73m2 Glucose 87 60 - 115 mg/dL [facility] Calcium 9.5 8.4 - 10.2 mg/dL [facility] Bilirubin, Total 0.5 0.0 - 1.0 mg/dL [facility] Aspartate Amino Transferase 17 5 - 37 U/L [facility] Alanine Aminotransferase 8 0 - 40 U/L [facility] Total Protein 7.6 6.5 - 8.0 g/dL [facility] Albumin Level 4.2 3.5 - 5.0 g/dL [facility] Alkaline Phosphatase 149(H) 39 - 117 U/L [facility] 10/22/2023 2:38 PM EST 10/22/2023 2:38 PM EST us Generic External Data Provider LAB BLOOD ORDERAB LES Final Result Performing Organization Address City/State/[facility] Co de Phone Number [facility] [address] [place] [address] [phone] documented in this encounter Visit Diagnoses Not on filedocumented in this encounter Care Teams Chrome Polisher Relationship Specialty Start Date End Date Kym Sebastian MD [address] [place] [id number] PCP - General Family Medicine 08/02/12 Vish Mendosa 05/25/24 documented as of this encounter
--- OUTSIDE RECORDS SUMMARY | 2024-11-13 14:48 | XMS_ITS | Data Portability ---
Author Organization [facility] Address [address] [facility] [place] [address] Assessment Encounter Date Assessment Date Assessment LastModified by Organization Details LastModified Time 08/24/2016 08/24/2016 Noble Valencia is a 61 year old man with complaints of low back pain radiating into left lower extremity. On exam, he has pain on flexion. Straight leg raising test is positive on the left. I recommend a MRI Lumbar spine to elucidate the etiology of his pain. His MRI needs to be ordered by his PCP due to Insurance issues. He has had injections at [facility] and has signed a release and will obtain information for review. He has history of alcohol hepatitis . He will need PT/INR prior to procedures. He may also benefit from trial of aquatic physical therapy. [email or web address] Not available 09/09/2016 14:16:19 Plan of Treatment Reminders Order Date Submit Date Provider Last Modified By Organization Details Last Modified Time Details Appointments None record ed. Lab None record ed. Referral None record ed. Procedures None record ed. Surgeries None record ed. Imaging None record ed. Medication Orders None record ed. Patient TargetsNo targets recorded. Patient Instructions Encounter Date Encounter Id Patient Instructions Last Modified By Organization Details Last Modified Time 08/24/2016 [id number] He was advised against bedrest lasting longer than 4 days and to continue with activities as tolerated. The benefits of smoking cessation were reviewed with him. [email or web address] Not available 09/09/2016 14:17:28 Reason for Referral None Reported. Procedures Surgical History Date Name Laterality Status Provider Name and Address Organization Details Recorded Time 10/04/2012 CABG completed Nery Schmitz [facility] 08/24/2016 13:15:30 Imaging Results None recorded. Procedure Notes None recorded. Medical Equipment None Reported. Allergies No known drug allergies Medications Name Sig Start Date Stop Date Status Note LastModified by Organization Details LastModified Time atorvastatin 20 mg tablet Take 1 tablet every day by oral route. active Not Available Not Available No t Available alendronate 70 mg tablet Take 1 tablet every week by oral route. active Not Available Not Available No t Available aspirin 81 mg tablet,delay ed release Take 1 tablet every day by oral route. active Not Available Not Available No t Available metoprolol succinate ER 25 mg tablet,exten ded release 24 hr Take 1 tablet twice a day by oral route. active Not Available Not Available No t Available fluticasone propionate 50 mcg/actuatio n nasal spray,suspen thor [place] 1 spray every day by intranasal route. active Not Available Not Available No t Available Spiriva with HandiHaler 18 mcg and inhalation capsules Inhale 1 capsule every day by inhalation route. active Not Available Not Available No t Available Vitals Date Recorded Heart rate Oxygen saturation Oxygen saturation in Arterial blood by Pulse oximetry Body height Body weight Body mass index (BMI) Systolic blood pressure Diastolic blood pressure Provider Name and Address Organization Details Last Updated DateTime 6 88 /min 95 % 95 % 177.8 cm 00019.0 1 g 18.7 kg/m2 129 mm[Hg] 86 mm[Hg] Nery [facility] 6 13:08:46 Social History Question Answer Notes LastModified by Organizat ion Details LastModified Time Tobacco Smoking Status Current Every Day Smoker Not Available [facility] 07/19/2020 03:16:10 What Is Your Level Of Alcohol Consumption? Moderate [id number] Information not available 07/19/2020 Are You Currently Employed? No [id number] Information not available 07/19/2020 Which Illicit Or Recreational Drugs Have You Used? No [id number] Information not available 07/19/2020 Education 12 Information no t available 08/24/2016 Live Alone Or With Others? Alone Information not available 08/24/2016 Marital Status Informatio n not available 08/24/2016 How Much Tobacco Do You Smoke? 1 PPD [id number] Information not available 07/19/2020 How Many Years Have You Smoked Tobacco? 45 [id number] Information not available 07/19/2020 Sex: Unknown Functional Status None recorded. Mental Status None recorded. Family History Relationship Description Onset Age of this Age Resolved Age Notes LastModified by Organization Details LastModified Time Father No current problems or disability Not available 08/24 13:13:31 Mother No current problems or disability Not available 08/24 13:13:31 Medical History Condition Response Coronary Artery Disease Y Arthritis Y High Cholesterol Y Past Encounters Encounter ID Performer Location Encounter Start Date Encounter Closed Date Diagnosis/Indication Diagnosis SNOMED-CT Code Diagnosis ICD10 Code Diagnosis Note [id number] Moriah Bustillo MD PAIN OFFICE [address] [facility] [address] [place] [address] 08/24/2016 12:47:41 09/09/2016 15:25:13 Displacement of lumbar intervertebral disc without myelopathy 06844586 M51.26 Lumbosacra l radiculitis 64408697 M54.17 Spinal brionna nosis of lumbar region 20486723 M48.06 Health Concerns Section Related Observation LastModified by Organization Detai ls LastModified Time None Recorded Concern Status LastModified by Organization Details LastModified Time None Recorded Advance Directives Directive None Recorded Payers Encounter Date Sequence Insurance Name Policy Number Policy Manzanares Covered Member ID Manzanares Member ID Guarantor Name 08/24/2016 1 MEDICAID-[place]: [facility] Noble Valencia [id number] Noble Valencia Notes Date Note Type Note Provider Name and Address Organization Details Recorded Time 08/24/2016 text/html [facility] Management L-spineReported bypatient.Location: Nobel Valencia is a 61 year old man with complaints of low back pain radiating into left lower extremity Quality:He describes the pain in his low back as a sharp stabbing pain which radiates into his left lower extremity. 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 Alleviating Factors:nothing helps Aggravating Factors:going from sit to stand; standing; walking Associated Symptoms:no weakness; no numbness; no bladder compromise; no bowel compromise Radiation:left LE Work Related:yes ADL (Activities of Daily Living):walking; sweeping; mopping Prior Imaging:no recent studies; Xray Lumbar spine shows mild endplate superior depression of T12, L1 and L2 vertebraes. Prior EMG:none Previous Surgerynone Previous Injections:SHERON; helped a little; He states he had injections done at [facility] which helped temporarily Previous PT:did not help Previous chronic care nurse:did not help Moriah Bustillo MD [address] [place] [address] , [address], [place], [address], [place] [facility] 09/11/2016 12:09:41
--- OUTSIDE RECORDS SUMMARY | 2024-11-13 14:48 | XMS_ITS | Encounter Summary ---
Author Organization [employer] Address [address] [facility] [facility] [address] [place] [address] Care Team Providers Care Process Stripper Name Role Phone Kym Sebastian MD Primary Care Provider [phone] Reason for Visit * Reason Comments Med Refill Encounter Details Date Type Department Care Team ([facility] st Contact Info) Description 01/07/2024 Refill [facility] MED & PEDS [address] [place], [place] [phone] Kym Sebastian MD [address] [place] [address] Social History Tobacco Use Types Packs/Day Years [...] on file documented as of this encounter Visit Diagnoses Not on filedocumented in this encounter Care Teams Process Stripper Relationship Specialty Start Date End Date Kym Sebastian MD [address] [place] [address] PCP - General Family Medicine 08/02/12 Vish Mendosa 05/25/24 documented as of this encounter
--- OUTSIDE RECORDS SUMMARY | 2024-11-13 14:48 | XMS_ITS | Encounter Summary ---
Author Organization [employer] Address [address] [place] [address] Care Team Providers Care Physician Aide Name Role Phone Kym Sebastian MD Primary Care Provider [phone] Reason for Visit * Reason Comments Med Change Request Encounter Details Date Type Department Care Team ([facility] Contact Info) Description 08/02/2024 Refill [facility] MED & PEDS [address] [place], [place] [phone] Kym Sebastian MD [address] [place], [place] [phone] Chronic obstructive pulmonary disease, unspecified COPD type (CMS/HCC) Social History Tobacco Use Types Packs/Day Years Used Date Smoking Tobacco: Some Days Cigarettes Alcohol Use Standard Drinks/Week Comments Yes 0 (1 standard drink = 0.6 oz pur e alcohol) Housing Stability Answer Date Recorded What is your housing situation today? I have jessee olvera 01/20/[address] you li ve. Do you have problems with any of the following? None of the above 01/20/2024 Food Insecurity Answer Date Recorded Within the past 12 months, y ou worried that your food would run out before you got money to buy more: Never True 01/20/2024 Within the past 12 months,th e food you bought just didn't last and you didn't have enough money to get more: Never True Transportation Answer Date Recorded In the past 12 months, has l ack of transportation kept you from medical appts, meetings, work or from getting things needed for daily living? No 01/20/2024 Utilities Answer Date Recorded In the past 12 months, has t he electric, gas, oil or water [employer] threatened to shut off services in your home? No 01/20/2024 Sex and Gender Information Value Date Recorded Sex Assigned at Male 08/03/2022 10:20 AM EDT Legal Sex Male 10:20 AM EDT Gender Identity Male 08/03/2022 10:20 AM EDT Sexual Orientation Straight 08/03/2022 10 :20 AM EDT documented as of this encounter Plan of Treatment Not on file documented as of this encounter Visit Diagnoses Diagnosis Chronic obstructive pulmonary disease, unspecified COPD type (CMS/HCC) documented in this encounter Care Teams Physician Aide Relationship Specialty Start Date End Date Kym Sebastian MD [address] [place] [id number] PCP - General Family Medicine 08/02/12 Vish Mendosa 05/25/24 documented as of this encounter
--- OUTSIDE RECORDS SUMMARY | 2024-11-13 14:48 | XMS_ITS | Encounter Summary ---
Author Organization [employer] Address [address] [place] [address] Care Team Providers Care Coach Wirer Name Role Phone Kym Sebastian MD Primary Care Provider [phone] Reason for Visit * Reason Onset Date Comments Appointment Request 06/29/2024 Encounter Details Date Type Department Care Team ([facility] Contact Info) Description 06/29/2024 Telephone [facility] MED[facility]INE [address] [place] [address] Kym Sebastian MD [address] [place] [address] Appointment Request Social History Tobacco Use Types Packs/Day Years Used Date Smoking Tobacco: Never Assessed Housing Stability Answer Date Recorded What is [...] t he electric, gas, oil or water company threatened to shut off services in your home? No 01/20/2024 Sex and Gender Information Value Date Recorded Sex Assigned at Male 08/03/2022 10:20 AM EDT Legal Sex Male 10:20 AM EDT Gender Identity Male 08/03/2022 10:20 AM EDT Sexual Orientation Straight 08/03/2022 10 :20 AM EDT documented as of this encounter Miscellaneous Notes * Telephone Encounter - Ivory Roblero RN - 06/30/2024 1:53 PM EDT TC placed to only number in chart (daughter) to attempt to r/s most recent HDF from May, went straight to and left message requesting call back to [facility] RN upon receipt of message. A no show letter was sent. TC returned to [facility] to determine if they have any other contact number for him and they do not. They report currently seeing pt. For care home services. Reviewed pt. Archives and pt. Last seen March 2022. Please advise if home care orders can be signed for Vish Mendosa * Telephone Encounter - Carmine Christian - 06/29/2024 3:01 PM EDT Tc from [place] with [facility] mendosa was requesting home care orders to be signed but was informed pcpis unable to sign home care orders due to pt not being seen in roughly a year. Arelis is requesting pt have a telephone visit and see what can be done to have home care orders signed. If any questions you can contact Arelis [phone]. documented in this encounter Plan of Treatment Not on file documented as of this encounter Visit Diagnoses Not on filedocumented in this encounter Care Teams Coach Wirer Relationship Specialty Start Date End Date Kym Sebastian MD [address] [place] [id number] PCP - General Family Medicine 08/02/12 Vish Mendosa 05/25/24 documented as of this encounter
--- NOTE | 2024-11-13 14:49 | PC.NURSE ---
Patient needed to be changed in order for xrays to be completed, while changing patient, patient found to be incontinent of stool, looking days old. Patient unsure how long he's had said pants on.
--- OUTSIDE RECORDS SUMMARY | 2024-11-13 14:49 | XMS_ITS | Clinical Summary ---
Author Organization [employer] Address [address] [place] [address] Care Team Providers Care American Indian Policy Specialist Name Role Phone Kym Sebastian MD Primary Care Provider [phone] Allergies No known active allergies Medications albuterol 108 (90 Base) MCG/ACT inhaler Inhale 2 puffs in the morning, at noon, in the evening, and at bedtime. 18 g 11 08/02/20 Active aspirin (Aspirin Low Dose) 81 MG EC tablet Take 1 tablet (81 mg) by mouth Once per day. 90 tablet 2 08/02/20 Active atorvastatin (Lipitor) 20 MG tablet Take 1 tablet (20 mg) by mouth Once per day. 30 tablet 11 08/02/20 24 2024 Active Breo Ellipta 200-25 MCG/ACT aerosol powder Inhale 1 puff Once per day. 28 each 11 08/02/20 24 2024 Active digoxin (Lanoxin) 125 MCG tablet Take 1 tablet (125 mcg) by mouth Once per day. 30 tablet 11 08/02/20 24 2024 Active famotidine (Pepcid) 20 MG tablet Take 1 tablet (20 mg) by mouth Once per day. 30 tablet 11 08/02/20 24 2024 Active furosemide (Lasix) 20 MG tablet Take 1 tablet (20 mg) by mouth Once per day. 30 tablet 11 08/02/20 24 2024 Active albuterol (2.5 MG/3ML) 0.083% nebulizer solutionIndica tions:Chronic respiratory failure with hypoxia (CMS/HCC) Take 3 mL (2.5 mg) by nebulization every 6 (six) hours if needed for wheezing. 75 mL 11 08/02/20 24 2024 Active metoprolol tartrate (Lopressor) 25 MG tablet Take 1 tablet (25 mg) by mouth 2 times daily. 60 tablet 11 08/02/20 24 2024 Active thiamine (Vitamin B-1) 100 MG tablet Take 1 tablet (100 mg) by mouth Once per day. 90 tablet 3 08/02/20 Active tiotropium (Spiriva HandiHaler) 18 MCG inhalation capsuleIndicat ions:Chronic obstructive pulmonary disease, unspecified COPD type (CMS/HCC) Place 1 capsule (18 mcg) into inhaler and inhale in the morning. 30 capsule 11 08/02/20 24 2024 Active levalbuterol (Xopenex) 1.25 MG/3ML nebulizer solution Take 1 ampule by nebulization every 2 (two) hours if needed for shortness of breath. 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 03/22/2013 Chronic obstructive lung disease 03/02/2013 Encounters Date Type Department Care Team Description 11/13/2024 Orders Only [facility] External Provider, [facility] 10/10/2024 Telephone [facility] [address] [place] [address] Kym Sebastian MD Med Refill 10/09/2024 11:15 AM EST Office Visit [facility] [address] [place] [address] Kym Sebastian MD Chronic obstructive pulmonary disease, unspecified COPD type (CMS/HCC) (Primary Dx); Ischemic congestive cardiomyopathy (CMS/HCC); Alcoholic hepatitis without ascites; Protein-calorie malnutrition, unspecified severity (CMS/HCC) 10/09/2024 Travel 10/06/2024 Telephone [facility] [address] [place], [place] [id number] Kym Sebastian MD Chart Prep from Last 3 Months Immunizations Name Administration Dates Next Due Influenza injectable quadriv alent IIV4 with preservative 07/05/2018 Tdap 12/23/2017 Social History Tobacco Use Types Packs/Day Years Used Date Smoking Tobacco: Some Days Cigarettes Tobacco Cessation:Ready to Q uit: Not Asked; Counseling Given: Not Answered Alcohol Use Standard Drinks/Week Comments Yes 0 [...] Orientation Straight 08/03/2022 10 :20 AM EDT Last Filed Vital Signs Vital Sign Reading Time Taken Comments Blood Pressure 125/71 10/09/2024 11:30 AM EST Pulse 63 10/09/2024 11:30 AM EST Temperature 36.4 ??C (97.6 ??F) 10/09/2024 11:[address] Respiratory Rate 22 10/09/2024 11:30 AM EST Oxygen Saturation 80% 10/09/2024 11:30 AM EST Inhaled Oxygen Concentration - - Weight 49 kg (108 lb) 10/09/2024 11:30 AM EST Height 172.7 cm (5' 8 ) 10/09/2024 11:30 AM EST Body Mass Index 16.42 10/09/2024 11:30 AM EST Plan of Treatment Health Maintenance Due Date Last Done Comments CT Colonography 1955 Colonoscopy 1955 Colorectal Cancer Screening 1955 Depression Screening 1955 FIT DNA/Cologuard 1955 FIT 1955 FOBT 1955 Sigmoidoscopy 1956 Alcohol/Substance Use Screening 1968 Hepatitis C Screening 1974 Hepatitis A Vaccines (1 of 2 - Risk 2-dose series) 1975 Zoster Vaccines (1 of 2) 2006 Pneumococcal Vaccine: 50+ Years (2 of 2 - PCV) 02/18/2014 02/18/2013 Hepatitis B Vaccines (1 of 3 - Risk 3-dose series) 2016 RSV Patients and Patients Aged 60 years or older (1 - Risk 60-74 years 1-dose series) 2016 COVID-19 Vaccine (3 - 2023-2 5 season) 2024 01/19/2021, 12/22/2020 Influenza Vaccine (#1) 2024 07/05/2018 SDOH Screening 01/19/2025 01/20/2024 Tobacco Screening 08/02/2025 08/02/2024 Lipid Panel 04/02/2027 04/02/2022 DTaP/Tdap/Td Vaccines (2 - T d or Tdap) 12/24/2027 12/23/2017 HIB Vaccines Aged Out No longer eligi ble based on patient's age to complete this topic HPV Vaccines Aged Out No longer eligi ble based on patient's age to complete this topic IPV Vaccines Aged Out No longer eligi ble based on patient's age to complete this topic Meningococcal Vaccine Aged Out No phan kenny eligible based on patient's age to complete this topic RSV under 20 months Aged Out No longe r eligible based on patient's age to complete this topic Rotavirus Vaccines Aged Out No longer eligible based on patient's age to complete this topic Procedures Procedure Name Priority Date/Time Associated Diagnosis Comments VENOUS BLOOD GAS Routine 11/13/2024 2:29 PM EST XR HIP 2 OR 3 VIEWS RIGHT Routine 11/13/2024 1:57 PM EST XR FEMUR 2+ VIEWS LEFT Routine 11/13/2024 1:30 PM EST XR KNEE 1-2 VIEWS LEFT Routine 11/13/2024 12:24 PM EST XR PELVIS 1-2 VIEWS Routine 11/13/2024 1 2:24 PM EST LIPID PANEL, STANDARD Routine 04/02/2022 9:19 AM EDT from Last 3 Months or Most Recently Relevant to Health Maintenance Results * (ABNORMAL) VENOUS BLOOD GAS (11/13/2024 2:29 PM EST) VBG pH 7.25(L) 7.32 - 7.43 [facility] Comment:METER #: [id number] additional_comment: Constantine ulrich VBG PCO2 58 mmHg [facility] Comment:METER #: [id number] additional_comment: Constantine meansdj VBG PO2 27 mmHg [facility] Comment:METER #: [id number] additional_comment: Constantine meansdj VBG Base Excess -1.8 mmol/L [facility] Comment:METER #: [id number] additional_comment: Cb miguelangeldj VBG HCO3 26 22 - 26 mmol/L [facility] Comment:METER #: [id number] additional_comment: Constantine ulrich O2 Sat, Tej <30.0 % [facility] Comment:METER #: [id number] additional_comment: Constantine costamio 11/13/2024 2:29 PM EST 11/13/2024 2:37 PM EST us Generic External Data Provider LAB BLOOD ORDERAB LES Final Result [facility] [address] [place] [address] [phone] * XR Hip 2 or 3 Views Right (11/13/2024 1:57 PM EST) Anatomical Region Laterality Modality Lower Extremities, Hip Right Radiograp hic Imaging 11/13/2024 1:57 PM EST Narrative 11/13/2024 2:21 PM EST ? [facility] ?[address] ?[place] [address] ?XRay Report ? Signed ? Patient: Annie,Noble F ?MR#: [id number] ?? 412 ? : 1955 ?Acct:[id number] ? Age/Sex: 69 / M ?ADM Date: 11/13/24 ? Loc: HO.ED ? Attending Dr: ? Ordering Physician: Rafael Longoria MD ?? Date of Service: 11/13/24 ?? Procedure(s): XR hip RT min 2V ?? Accession Number(s): [id number] ? cc: Kym Sebastian MD; Rafael Longoria MD ? EXAMINATION: ??XR PELVIS 1-2 VIEWS, XR HIP 2 OR MORE VIEWS RIGHT ? HISTORY: PAIN ? COMPARISON: There are no prior studies for comparison. ? FINDINGS: ??A single AP view of the pelvis and 2 additional views of the ?? right hip are submitted. The bones are osteopenic. There is no fracture ?? or dislocation. The joint space is maintained. There are surgical clips ?? in the right inguinal region. ? XR/XR hip RT min 2V ?? IMPRESSION: ?? Osteopenia. No evidence of fracture of the right hip or pelvis. ? Electronically signed by: ??Albaro Avila MD ??11/13/2024 02:18 PM EST ?? RP ? Dictated By: ?Albaro Avila MD ? Signed By: ?<Electronically signed by Albaro Avila MD in OV> ?11/13/24 1418 ? DD/ ? TD/TT: 11/13/24 4005 ? Wan Support Specialist: ? Procedure Note Donotuseinterpreter, Image - 11/13/[address] [address] XRay Report Signed Patient: Noble Valencia FMR#: [id number] 412 : 6Acct:[id number] Age/Sex: 69 / MADM Date: 11/13/24 Loc: HO.ED Attending Dr: Ordering Physician: Rafael Longoria MD Date of Service: 11/13/24 Procedure(s): XR hip RT min 2V Accession Number(s): [id number] cc: Kym Sebastian MD; Rafael Longoria MD EXAMINATION: XR PELVIS 1-2 VIEWS, XR HIP 2 OR MORE VIEWS RIGHT HISTORY: PAIN COMPARISON: There are no prior studies for comparison. FINDINGS: A single AP view of the pelvis and 2 additional views of the right hip are submitted. The bones are osteopenic. There is no fracture or dislocation. The joint space is maintained. There are surgical clips in the right inguinal region. XR/XR hip RT min 2V IMPRESSION: Osteopenia. No evidence of fracture of the right hip or pelvis. Electronically signed by: Albaro Avila MD 11/13/2024 02:18 PM EST Dictated By: Albaro Avila MD Signed By: <Electronically signed by Albaro Avila MD in OV> 11/13/24 1418 DD/ 1357 TD/TT: 11/13/24 1355 Wan Support Specialist: us [facility] External Provider IMG XR PROCEDURES Final Result * XR Femur 2+ Views Left (11/13/2024 1:30 PM EST) Anatomical Region Laterality Modality Lower Extremities, Femur Left Radiogr aphic Imaging 11/13/2024 1:30 PM EST Narrative 11/13/2024 2:28 PM EST ? [facility] ?[address] ?[place] [address] ?XRay Report ? Signed ? Patient: Runions,Noble F ?MR#: [id number] ?? 412 ? : 1955 ?Acct:[id number] ? Age/Sex: 69 / M ?ADM Date: 02/10/25 ? Loc: HO.ED ? Attending Dr: ? Ordering Physician: Rafael Longoria MD ?? Date of Service: 11/13/24 ?? Procedure(s): XR femur LT 2V ?? Accession Number(s): [id number] ? cc: Kym Sebastian MD; Rafael Longoria MD ? EXAMINATION: ?? XR FEMUR, LEFT ? CLINICAL INFORMATION: ?? pain ? COMPARISON: ?? LT Knee radiograph performed concurrently. ? TECHNIQUE: ?? AP and lateral views of the left femur were obtained. ? FINDINGS: ?? Osteopenia. ?? No acute fracture, dislocation, or suspicious bone lesion. ?? Lateral fixation plate and screws distal metadiaphysis of the femur, ?? without definite loosening or hardware failure. Refer to the dedicated ?? knee x-ray. ? Mild arthritic changes right hip joint. Mild enthesopathy greater ?? trochanter. ? Soft tissues demonstrate vascular calcifications but are otherwise ?? normal. ? XR/XR femur LT 2V ?? IMPRESSION: ?? Intact left femur. Osteopenia. ?? Refer to dedicated left knee x-ray. ? Electronically signed by: ??Francisco Odell MD ??11/13/2024 02:24 PM EST RP ? Dictated By: ?Francisco Odell MD ? Signed By: ?<Electronically signed by Francisco Odell MD in OV> ?11/13/24 1424 ? DD/ 1330 ? TD/TT: 11/13/24 8345 ? Wan Support Specialist: ? Procedure Note Abril Klein - 11/13/[address] [address] XRay Report Signed Patient: Noble Valencia FMR#: [id number] 412 : 6Acct:[id number] Age/Sex: 69 / MADM Date: 11/13/24 Loc: HO.ED Attending Dr: Ordering Physician: Rafael Longoria MD Date of Service: 11/13/24 Procedure(s): XR femur LT 2V Accession Number(s): [id number] cc: Kym Sebastian MD; Rafael Longoria MD EXAMINATION: XR FEMUR, LEFT CLINICAL INFORMATION: pain COMPARISON: LT Knee radiograph performed concurrently. TECHNIQUE: AP and lateral views of the left femur were obtained. FINDINGS: Osteopenia. No acute fracture, dislocation, or suspicious bone lesion. Lateral fixation plate and screws distal metadiaphysis of the femur, without definite loosening or hardware failure. Refer to the dedicated knee x-ray. Mild arthritic changes right hip joint. Mild enthesopathy greater trochanter. Soft tissues demonstrate vascular calcifications but are otherwise normal. XR/XR femur LT 2V IMPRESSION: Intact left femur. Osteopenia. Refer to dedicated left knee x-ray. Electronically signed by: Francisco Odell MD 11/13/2024 02:24 PM EST Dictated By: Francisco Odell MD Signed By: <Electronically signed by Francisco Odell MD in OV> 11/13/24 1424 DD/ 1330 TD/TT: 11/13/24 1355 Wan Support Specialist: [facility] External Provider IMG XR PROCEDURES Final Result * XR Pelvis 1-2 Views (11/13/2024 12:24 PM EST) Anatomical Region Laterality Modality Body, Pelvis Radiographic Acacia ging 11/13/2024 12:2 4 PM EST Narrative 11/13/2024 2:21 PM EST ? [facility] ?[address] ?[place] [address] ?XRay Report ? Signed ? Patient: Runions,Noble F ?MR#: [id number] ?? 412 ? : 1955 ?Acct:[id number] ? Age/Sex: 69 / M ?ADM Date: 02/10/25 ? Loc: HO.ED ? Attending Dr: ? Ordering Physician: Rafael Longoria MD ?? Date of Service: 11/13/24 ?? Procedure(s): XR pelvis 1-2V ?? Accession Number(s): [id number] ? cc: Kym Sebastian MD; Rafael Longoria MD ? EXAMINATION: ??XR PELVIS 1-2 VIEWS, XR HIP 2 OR MORE VIEWS RIGHT ? HISTORY: PAIN ? COMPARISON: There are no prior studies for comparison. ? FINDINGS: ??A single AP view of the pelvis and 2 additional views of the ?? right hip are submitted. The bones are osteopenic. There is no fracture ?? or dislocation. The joint space is maintained. There are surgical clips ?? in the right inguinal region. ? XR/XR pelvis 1-2V ?? IMPRESSION: ?? Osteopenia. No evidence of fracture of the right hip or pelvis. ? Electronically signed by: ??Albaro Avila MD ??11/13/2024 02:18 PM EST ?? RP ? Dictated By: ?Albaro Avila MD ? Signed By: ?<Electronically signed by Albaro Avila MD in OV> ?11/13/24 1418 ? DD/ 1224 ? TD/TT: 11/13/24 1355 ? Wan Support Specialist: ? Procedure Note Donsiabellater, Image - 11/13/2024 [place] [address] XRay Report Signed Patient: Noble Valencia FMR#: [id number] 412 : 1955cct:[id number] Age/Sex: 69 / MADM Date: 11/13/24 Loc: HO.ED Attending Dr: Ordering Physician: Rafael Longoria MD Date of Service: 11/13/24 Procedure(s): XR pelvis 1-2V Accession Number(s): [id number] cc: Kym Sebastian MD; Rafael Longoria MD EXAMINATION: XR PELVIS 1-2 VIEWS, XR HIP 2 OR MORE VIEWS RIGHT HISTORY: PAIN COMPARISON: There are no prior studies for comparison. FINDINGS: A single AP view of the pelvis and 2 additional views of the right hip are submitted. The bones are osteopenic. There is no fracture or dislocation. The joint space is maintained. There are surgical clips in the right inguinal region. XR/XR pelvis 1-2V IMPRESSION: Osteopenia. No evidence of fracture of the right hip or pelvis. Electronically signed by: Albaro Avila MD 11/13/2024 02:18 PM [facility] Dictated By: Albaor Avila MD Signed By: <Electronically signed by Albaro Avila MD in OV> 11/13/24 1418 DD/ 1224 TD/TT: 11/13/24 1355 Wan Support Specialist: [facility] External Provider IMG XR PROCEDURES Final Result * XR Knee 1-2 Views Left (11/13/2024 12:24 PM EST) Anatomical Region Laterality Modality Lower Extremities, Knee Left Radiogra phic Imaging 11/13/2024 12:2 4 PM EST Narrative 11/13/2024 2:27 PM EST ? [facility] ?[address] ?[place] [address] ?XRay Report ? Signed ? Patient: Runions,Noble F ?MR#: [id number] ?? 412 ? : 1955 ?Acct:[id number] ? Age/Sex: 69 / M ?ADM Date: 11/13/24 ? Loc: HO.ED ? Attending Dr: ? Ordering Physician: Rafael Longoria MD ?? Date of Service: 11/13/24 ?? Procedure(s): XR knee LT 2V ?? Accession Number(s): [id number] ? cc: Kym Sebastian MD; Rafael Longoria MD ? EXAMINATION: ?? XR KNEE, LEFT ? CLINICAL INFORMATION: ?? pain ? COMPARISON: ?? 03/18/2020. ? TECHNIQUE: ?? Two views of the left knee. ? FINDINGS: ?? There is diffuse osteopenia. ?? Lateral plate and screw fixation of the distal femur, without ?? periprosthetic loosening or hardware abnormality. ?? Of note, one of the inferior screws extends 5 mm medial to the cortex ?? of the medial femoral condyle. ??There is to be overlying soft tissue ?? prominence. ? There is no evidence of acute fracture, dislocation, or suspicious bone ?? lesion. Old fracture deformity distal femur. ?? Tricompartmental osteoarthritis of the knee joint. ? No significant joint effusion although lateral view is obliqued. There ?? are vascular calcifications. ? XR/XR knee LT 2V ?? IMPRESSION: ?? 1. Osteopenia. No acute fracture. ?? 2. Lateral fixation hardware distal femur intact without loosening. Of ?? note, an inferior screw extends 5 mm medial to the cortex of the medial ?? femoral condyle, into the medial soft tissues. There is overlying soft ?? tissue prominence. Correlate with visual appearance. ?? 3. Tricompartmental degenerative arthritis. ? Electronically signed by: ??Francisco Odell MD ??11/13/2024 02:22 PM EST RP ? Dictated By: ?Francisco Odell MD ? Signed By: ?<Electronically signed by Francisco Odell MD in OV> ?11/13/24 1422 ? DD/ 1224 ? TD/TT: 11/13/24 1355 ? Wan Support Specialist: ? Procedure Note Donericka, Image - 11/13/2024 [place] [address] XRay Report Signed Patient: Noble Valencia FMR#: [id number] 412 : 1955cct:[id number] Age/Sex: 69 / MADM Date: 11/13/24 Loc: HO.ED Attending Dr: Ordering Physician: Rafael Longoria MD Date of Service: 11/13/24 Procedure(s): XR knee LT 2V Accession Number(s): [id number] cc: Kym Sebastian MD; Rafael Longoria MD EXAMINATION: XR KNEE, LEFT CLINICAL INFORMATION: pain COMPARISON: 03/18/2020. TECHNIQUE: Two views of the left knee. FINDINGS: There is diffuse osteopenia. Lateral plate and screw fixation of the distal femur, without periprosthetic loosening or hardware abnormality. Of note, one of the inferior screws extends 5 mm medial to the cortex of the medial femoral condyle. There is to be overlying soft tissue prominence. There is no evidence of acute fracture, dislocation, or suspicious bone lesion. Old fracture deformity distal femur. Tricompartmental osteoarthritis of the knee joint. No significant joint effusion although lateral view is obliqued. There are vascular calcifications. XR/XR knee LT 2V IMPRESSION: 1. Osteopenia. No acute fracture. 2. Lateral fixation hardware distal femur intact without loosening. Of note, an inferior screw extends 5 mm medial to the cortex of the medial femoral condyle, into the medial soft tissues. There is overlying soft tissue prominence. Correlate with visual appearance. 3. Tricompartmental degenerative arthritis. Electronically signed by: Francisco Odell MD 11/13/2024 02:22 PM EST Dictated By: Francisco Odell MD Signed By: <Electronically signed by Francisco Odell MD in OV> 11/13/24 1422 DD/ 1224 TD/TT: 11/13/24 1355 Wan Support Specialist: [facility] External Provider IMG XR PROCEDURES Final Result * LIPID PANEL, STANDARD (04/02/2022 9:19 AM EDT) Chol/HDLC Ratio 2.4 <5.0 (calc) [facility] Cholesterol, Total 133 <200 mg/dL [facility] HDL Cholesterol 55 > OR = 40 mg/dL [facility] LDL Cholesterol 62 mg/dL (calc) [facility] Comment: Reference range: <100 ?? Desirable range <100 mg/dL for primary prevention; ?? <70 mg/dL for patients with CHD or diabetic patients ?? with > or = 2 CHD risk factors. ?? LDL-C is now calculated using the Tyrel-Syed ?? calculation, which is a validated novel method providing ?? better accuracy than the Friedewald equation in the ?? estimation of LDL-C. ?? Tyrel SS et al. CASEY. 2013;310(19): 9203-2447 ?? (http://education.[employer].com/faq/CHH743) Non-HDL Cholesterol 78 <130 mg/dL (calc) [facility] Comment: For patients with diabetes plus 1 major ASCVD risk ?? factor, treating to a non-HDL-C goal of <100 mg/dL ?? (LDL-C of <70 mg/dL) is considered a therapeutic ?? option. Triglycerides 76 <150 mg/dL [facility] 04/02/2022 9:19 AM EDT Kym Sebastian MD LAB BLOOD ORDERABLES Final Resul t [facility] [address] from Last 3 Months or Most Recently Relevant to Health Maintenance Insurance [place] [id number] [facility] STANDARD Care Teams American Indian Policy Specialist Relationship Specialty Start Date End Date Kym Sebastian MD [address] [place] [id number] PCP - General Family Medicine 08/02/12 Vish Mendosa 05/25/24
[2024-11-13 14:50] LABS: Ethanol 89 mg/dL
[2024-11-13 14:53] LABS: Alanine Aminotransferase 7 U/L (0-40); Albumin Level 3.7 g/dL (3.5-5.0); Alkaline Phosphatase 135 U/L (39-117); Anion Gap 14 (12-20); Aspartate Amino Transferase 33 U/L (5-37); Bilirubin Total 0.6 mg/dL (0.0-1.0); Blood Urea Nitrogen 24 mg/dL (9-16); Calcium 8.2 mg/dL (8.4-10.2); Carbon Dioxide 22 mmol/L (22-29); Chloride 108 mmol/L (96-108); Creatinine Clr Calc Pharmacy 58.9; Estimated Glomerular Filt Rate > 60; Glucose Random 82 mg/dL (60-115); Lipase < 4 U/L (8-78); Magnesium 1.7 mg/dL (1.6-2.6); Potassium 4.5 mmol/L (3.3-5.1); Sodium 139 mmol/L (135-145); Total Protein 6.8 g/dL (6.5-8.0)
[2024-11-13 14:54] LABS: B Type Natriuretic Peptide 1027 pg/mL (<100)
[2024-11-13 14:55] LABS: Digoxin 1.5 ng/mL (0.8-2.0)
[2024-11-13 15:15] LABS: Influenza A PCR NEGATIVE (Negative); Influenza B PCR NEGATIVE (Negative); Resp Syncy Virus RNA Qual PCR NEGATIVE (Negative); SARS COV2 PCR INHOUSE NEGATIVE (Negative)
--- NOTE | 2024-11-13 15:39 | PC.NURSE ---
Patient's daughter, Sharmin called asking for update. Per Sharmin patient does have oxygen at home, supposed to be on 2L doesn't wear it all the time but probably should be. Sharmin's number is [phone], please call w/ updates.
[2024-11-13] MEDS: Furosemide 20 MG/2 ML VIAL IVPUSH (15:48)
[2024-11-13] MEDS: iohexoL 350 MG/ML 100 ML INFUS..BTL IV (16:08)
[2024-11-13] MEDS: Albuterol Sulfate 90 MCG 8 GM INHALER 8 PUFF INHALE (16:48)
--- NOTE | 2024-11-13 17:04 | PC.NURSE ---
Confirmed w/ provider no BC before abx - Dr. Longoria decided to order BC. ABX delayed d/t need to draw
[2024-11-13 17:05] LABS: Venous Blood Gas Refer to POC result
[2024-11-13 17:06] LABS: VBG Base Excess -3.4 mmol/L; VBG HCO3 23 mmol/L (22-26); VBG pCO2 50 mmHg; VBG pH 7.28 (7.32-7.43); VBG pO2 45 mmHg
--- NOTE | 2024-11-13 17:22 | P.HPHOSP_ITS ---
History of Present Illness Date of Service: 11/13/24 Chief Complaint: Fall, SOB, hypoxia A 69 years old male with PMH of sCHF on digoxin, CAD, Alcholol abuyse, Afib no on AC, COPD among others who presents to the hospital after a fall at home with left knee pain found to be hypoxic. The patient reports standing were he lost his balance and fell but doesnt recall details. was drinking today. .reporting left knee pain. XR lt leg showing intact lateral fixation hardward of distal femur. He denies No chest pain, palpitations, nausea, vomiting, diarrhea or urinary symptoms. reported more SOB the last few days. In ED found with BNP >1000, Alcohol of 87, CXR showing effusions. Review of Systems 2 Review of Systems: No fever, chills or weakness No chest pain, palpitation reporting shortness of breath or coughing No abdominal pain, nausea or vomiting No urinary symptoms left knee pain PMFSH Medical History Pleural effusion Pneumonia Respiratory failure with hypoxia History of CO (myocardial infarction) History of seizure due to alcohol withdrawal Atrial fibrillation with slow ventricular response Hypoxemia CAP (community acquired pneumonia) Chronic respiratory failure Atherosclerotic cardiovascular disease CHF (congestive heart failure) CAD (coronary artery disease) History of ischemic cardiomyopathy Tobacco abuse Alcohol abuse Hypercholesteremia COPD (chronic obstructive pulmonary disease) Surgical History History of coronary artery bypass graft x 3 (~2013) History of surgery on lower extremity (~2018) Social History Household Members: Family Household Members Other:: CHILDREN,GRANDCHILDREN Housing: House Do you presently have visiting nurse or other home services: Yes Alcohol intake: current Alcohol intake frequency: 3 or more drinks per day Alcohol type: hard liquor Patient Tobacco Use Status: Former Tobacco user Tobacco use type: Cigarette Cigarette Packs Per Day: 0.5 Cigarettes Per Day: 7 Years Smoked: 40+ Smoked in Last 30 Days: No e-Cigarette/Vaping Use: Never Used Second Hand Smoke Exposure: No Use of substances other than those prescribed or required for medical reasons: No Have you been hit, kicked, punched, or otherwise hurt by someone within the past year? If so, by whom?: No Do you feel safe in your current relationship?: Yes Are you made to feel afraid or neglected: No Advance Directives: Yes Advance Directives on File: Yes Advance Directives Date on File: 11/08/20 Do you have a plan to hurt others: No Plan Recently lost weight without trying: No Eating poorly because of decreased appetite: No Nutrition Risks: Dental problems, Emaciation/Cachexia and Poor intake 0-25% >4 days service: No Current occupational status: retired [employer] Allergies Allergy/AdvReac Type Severity Reaction Status Date / Time No Known Allergies Allergy Verified 11/13/24 12:21 [No Known Allergies*] Active Medications: Current Medications Doxycycline Hyclate 100 mg/ (Sodium Chloride) 250 mls @ 166.67 mls/hr IV ONCE ONE Stop: 11/13/24 18:10 Home Medications ?Medication ?Instructions ?Recorded ?Confirmed ?Last Taken ?Type aspirin 81 mg tablet,delayed 81 mg PO DAILY 08/12/20 11/13/24 1 Day Ago History release ~11/12/24 thiamine HCl (vitamin B1) 100 mg 100 mg PO DAILY 11/05/20 11/13/24 1 Day Ago History tablet (Vitamin B-1) ~11/12/24 cholecalciferol (vitamin D3) 25 25 mcg PO DAILY 11/07/20 11/13/24 1 Day Ago History mcg (1,000 unit) capsule (Vitamin ~11/12/24 D3) Physical Exam 2 Vital Signs and Narrative: Vital Signs: Last Vital Signs Temp 98.0 F 11/13/24 14:48 Pulse 115 H 11/13/24 16:49 Resp 20 11/13/24 16:49 BP 123/63 11/13/24 14:48 Pulse Ox 95 11/13/24 14:48 O2 Del Method Nasal Cannula 11/13/24 14:48 O2 Flow Rate 4 11/13/24 14:48 BMI result Body Mass Index 19.8 Const: Other: Constitutional : Awake, interactive, not in distress Neck : Normal inspection, Supple Cardiovascular : RRR, no JVP, +1 lower extremity edema Respiratory : good bilateral air entry, basal crackles, wheezes or rhonchi Gastrointestinal: soft, lax, Normal bowel sounds, Non tender Skin : Warm, Dry Neurological : Alert & oriented x3, No focal deficit Results Labs 11/14/24 05:31 11/14/24 05:31 Labs: Laboratory Results - last 24 hr 11/13/24 11/13/24 11/13/24 14:24 14:29 17:00 MCV 95.6 MCH 30.9 MCHC 32.3 RDW 18.0 H Plt Count 215 D MPV 10.0 Immature Gran % (Auto) 0.4 Neut % (Auto) 82.5 H Lymph % (Auto) 6.7 L Cloud % (Auto) 9.7 Eos % (Auto) 0.2 Baso % (Auto) 0.5 Lymph # (Auto) 0.7 L Cloud # (Auto) 1.0 Eos # (Auto) 0.0 Baso # (Auto) 0.1 Abs Immat Gran (auto) 0.04 H Absolute Neuts (auto) 8.4 H Absolute Nucleated RBC 0.000 Nucleated RBC % (auto) 0.0 VBG pH 7.25 L 7.28 L VBG pCO2 58 50 VBG pO2 27 45 VBG HCO3 26 23 VBG O2 Saturation < 30.0 67.0 VBG Base Excess -1.8 -3.4 Anion Gap 14 Estim Creat Clear Calc 58.9 Estimated GFR > 60 Random Glucose 82 Calcium 8.2 L Magnesium 1.7 Total Bilirubin 0.6 AST 33 ALT 7 Alkaline Phosphatase 135 H B-Natriuretic Peptide 1027 H Total Protein 6.8 Albumin 3.7 Lipase < 4 L Hold Red Top See Note Digoxin 1.5 Ethyl Alcohol 89 Influenza Type A (PCR) NEGATIVE Influenza Type B (PCR) NEGATIVE RSV RNA Qual (PCR) NEGATIVE SARS-CoV-2 RNA (RT-PCR) NEGATIVE Imaging Radiologist's Impressions: Impressions Cervical Spine CT 11/13/24 12:20 IMPRESSION: 1. No CT evidence of acute cervical spine fracture or injury. 2. Exaggerated lordosis. Mild S-shaped scoliosis. 3. Old fracture of the dens, with irregular healing resulting in moderate central canal stenosis at C1 level. 4. Degenerative spondylosis. Electronically signed by: Francisco Odell MD 11/13/2024 04:[address] [facility] Chest CTA 11/13/24 12:20 IMPRESSION: No evidence of PE. No evidence of aortic aneurysm. Diffuse centrilobular emphysema with dependent atelectasis in both lung bases. There is a small area of airspace consolidation/atelectasis in the dependent posterior segment right upper lobe. There are ill-defined nodules in the left upper lobe suspicious for primary or metastatic lung lesion. The largest lesion measures 1 cm on axial image . Fleischner guidelines were followed. Electronically signed by: Mariano Jovel MD 11/13/2024 04:32 PM EST RP Head CT 11/13/24 12:20 IMPRESSION: No acute intracranial abnormalities. No fracture evident. Electronically signed by: Francisco Odell MD 11/13/2024 04:22 PM EST RP Knee X-Ray 11/13/24 12:24 IMPRESSION: 1. Osteopenia. No acute fracture. 2. Lateral fixation hardware distal femur intact without loosening. Of note, an inferior screw extends 5 mm medial to the cortex of the medial femoral condyle, into the medial soft tissues. There is overlying soft tissue prominence. Correlate with visual appearance. 3. Tricompartmental degenerative arthritis. Electronically signed by: Francisco Odell MD 11/13/2024 02:22 PM EST RP Pelvis X-Ray 11/13/24 12:24 IMPRESSION: Osteopenia. No evidence of fracture of the right hip or pelvis. Electronically signed by: Albaro Avila MD 11/13/2024 02:18 PM EST RP Femur X-Ray 11/13/24 13:30 IMPRESSION: Intact left femur. Osteopenia. Refer to dedicated left knee x-ray. Electronically signed by: Francisco Odell MD 11/13/2024 02:24 PM EST RP Hip X-Ray 11/13/24 13:57 IMPRESSION: Osteopenia. No evidence of fracture of the right hip or pelvis. Electronically signed by: Albaro Avila MD 11/13/2024 02:18 PM EST RP Assessment and Plan (1) Elevated brain natriuretic peptide (BNP) level: Status: Acute (2) Acute respiratory failure with hypoxia and hypercapnia: Status: Acute (3) Pneumonia: Status: Acute (4) Alcohol use: Status: Acute (5) Acute lactic acidosis: Status: Acute Plan A 69 years old male with PMH of sCHF on digoxin, CAD, Alcholol abuse, Afib no on AC, COPD among others who presents to the hospital after a fall at home with left knee pain found to be hypoxic. Acute hypoxic respiratory failure secondary to dCHF and COPD exacerbation CXR showing effusion and edema BNP elevated IV lasix Wean O2 down as tolerated Alcohol abuse with hx of withdrawal Keep on CIWA Thiamin, Folic PHenobarb when needed addiction team acute Lactic acidosis secondary to hypoxia, nebulizers and alcohol intake not due to severe sepsis Give IV bolus Fall PT eval no fracutres in XR Pneumonia Atelactasis and consolidations in RUL Doxycycline and Ceftriaxone Lung nodules CTA reporting ill-defined nodules in the left upper lobe suspicious for primary or metastatic lung lesion. The largest lesion measures 1 cm on axial image . Hx Afib, chronic not on AC for falls Continue Metopfolol, Digoxin DVT PPx Lovenox The patient will need 2 overnight hospital stay for treatment of hypoxic respiratory failure Quality Stroke Does the patient have a stroke diagnosis?: No VTE Prior VTE?: No VTE Risk Level:: Medical - moderate - high VTE Device Contraindication: Treatment Not Indicated VTE Drug Contraindication: N/A - Med Ordered
[2024-11-13 17:35] LABS: Appearance Urine Cloudy; Color Urine Yellow; Glucose Urine UA Negative (Negative); Leukocyte Esterase Urine Moderate (2+) (Negative); Nitrite Urine Negative (Negative); Specific Gravity - Urine 1.015 (1.005-1.025); UMIC TRIGGER UACC YES; Urine Blood Trace (Negative); Urine Ketones Negative (Negative); Urine Protein Negative (Neg-Trace)
[2024-11-13 17:38] LABS: Bacteria Urine None Seen (None Seen); Hyaline Casts Urine 0-2 /LPF (0-2); Squamous Epithelial Cell Urine 0-2 /HPF (0-2); UACC Culture Trigger YES; WBC Urine >50 /HPF (0-5)
[2024-11-13] MEDS: Doxycycline Hyclate 100 MG in 0.9 % Sodium Chloride 250 ML 166.67 MG IV (17:42)
[2024-11-13] MEDS: cefTRIAXone sodium 1 GM VIAL IVPUSH (17:42)
[2024-11-13] MEDS: methylPREDNISolone Sod Succ 125 MG/2 ML VIAL IVPUSH (17:42)
[2024-11-13 17:43] LABS: Amphetamine Screen Urine Not Detected (Not Detect); Barbiturates, Urine Not Detected (Not Detect); Benzodiazepines Screen Urine Not Detected (Not Detect); Buprenorphine Scr Not Detected (Not Detect); Cannabinoid Screen Urine Not Detected (Not Detect); Cocaine Screen Urine Not Detected (Not Detect); Fentanyl, urine POSITIVE (Not Detect); Methadone Screen, Urine Not Detected (Not Detect); Opiate Screen Urine Not Detected (Not Detect); Oxycodone Screen Urine Not Detected (Not Detect); Phencyclidine Screen Urine Not Detected (Not Detect)
[2024-11-13 17:50] LABS: Lactic Acid 6.4 mmol/L (0.5-2.0)
--- NOTE | 2024-11-13 18:29 | PC.NURSE ---
Patient complaining of having to urinate, only able to void small amounts - 200 - 300 ccs at a time. Bladder scanned for 700+ ccs, provider Dr. Longoria made aware, verbal order for garcía. 16F coude w/ 30 cc balloon inflated w/ saline, patient tolerated procedure fairly well, initial OP >1L cloudy yellow urine.
[2024-11-13] MEDS: Albuterol/Iprat 2.5/0.5MG 3 ML AMPUL.NEB INHALE (18:55)
--- NOTE | 2024-11-13 19:05 | PHA.MEDREC ---
Addendum entered by Brynn Call [facility] 11/13/24 19:22: REVIEWED Original Note: Pharmacy Consult ? Medication Reconciliation Pharmacy has completed the medication reconciliation. Spoke with patient who was not sure at this time what he is taking for medicaitons or the last time he took them. I spoke with patient's daughter over the phone who was able to confirm her dads medications. She stated she assumes her dad took his morning medications this morning but knows he took them last night.
[2024-11-13 19:30] LABS: Reflex Lactate? Lactic Acid Added
[2024-11-13 20:34] LABS: ~Lactic Acid-LAB USE ONLY 3.1 mmol/L (0.5-2.0)
--- NOTE | 2024-11-13 21:57 | PC.NURSE ---
had to increase patients oxygen from 4L to 6L, MD Dr. Bai notified
[2024-11-13 22:14] LABS: Reflex Lactate? 2 Y
[2024-11-13] MEDS: Enoxaparin Sodium 40 MG/0.4 ML SYRINGE SUBCUT (22:38)
[2024-11-13] MEDS: Metoprolol Tartrate 100 MG TABLET PO (22:38)
[2024-11-13 22:49] LABS: ~Lactic Acid-LAB USE ONLY 2.4 mmol/L (0.5-2.0)
[2024-11-14] VITALS (9 sets, daily range): BP systolic 100–134; BP diastolic 54–60; PULSE 52–107; RESP 12–20; TEMP 36.2–36.6; O2SAT 90–100
--- NOTE | 2024-11-14 00:20 | PC.NURSE ---
patient placed on bedpan with assist of one.
[2024-11-14] MEDS: 0.9 % Sodium Chloride Flush 3 ML SYRINGE IVFLUSH ×2 (00:27→07:36)
[2024-11-14 06:04] LABS: Basophils Percent Auto 0.3 % (0-2); Hematocrit 37.6 % (42.0-52.0); Hemoglobin 12.6 g/dl (14.0-18.0); Imm Gran Abs Auto 0.05 X10*3/uL (0.00-0.03); Imm Gran Pct Auto 0.7 % (0.0-0.4); Lymphocytes Absolute Auto 0.3 X10*3/uL (1.2-4.9); Lymphocytes Percent Auto 4.1 % (20-40); MANUAL DIFF FLAG SCAN; Mean Corpuscular HGB Conc 33.5 g/dl (31.0-36.0); Mean Corpuscular Volume 92.6 fL (80.0-98.0); Mean Platelet Volume 9.6 fL (9.4-12.4); Monocytes Absolute Auto 0.2 X10*3/uL (0.1-1.2); Monocytes Percent Auto 2.5 % (2-11); Neutrophils Absolute Auto 7.1 x10*3/uL (2.0-8.3); Neutrophils Percent Auto 92.4 % (45-73); Platelet Count 209 X10*3/uL (160-400); Red Blood Count 4.06 X10*6/uL (4.60-5.80); Red Cell Distribution Width 18.2 % (11.0-16.0); SCAN SMEAR FLAG 1; White Blood Count 7.6 X10*3/uL (4.8-10.8)
[2024-11-14 06:23] LABS: Alanine Aminotransferase 6 U/L (0-40); Albumin Level 3.5 g/dL (3.5-5.0); Alkaline Phosphatase 125 U/L (39-117); Anion Gap 12 (12-20); Aspartate Amino Transferase 28 U/L (5-37); Blood Urea Nitrogen 25 mg/dL (9-16); Calcium 8.1 mg/dL (8.4-10.2); Carbon Dioxide 23 mmol/L (22-29); Chloride 108 mmol/L (96-108); Creatinine Clr Calc Pharmacy 71.9; Estimated Glomerular Filt Rate > 60; Glucose Random 138 mg/dL (60-115); Potassium 4.2 mmol/L (3.3-5.1); Sodium 139 mmol/L (135-145); Total Protein 6.5 g/dL (6.5-8.0)
[2024-11-14 06:33] LABS: SLIDE REVIEW VERIFIED
[2024-11-14 06:34] LABS: Bilirubin Total 0.9 mg/dL (0.0-1.0)
[2024-11-14] MEDS: Albuterol/Iprat 2.5/0.5MG 3 ML AMPUL.NEB INHALE ×3 (07:31→18:53)
[2024-11-14] MEDS: methylPREDNISolone Sod Succ 40 MG/ML VIAL IVPUSH ×2 (07:35→19:59)
--- NOTE | 2024-11-14 08:58 | MHC.CM.PN ---
Addendum entered by Priya Sandoval 11/14/24 09:29: CORRECTION! [facility]; he has a Nurse 1/week set up by [facility]. CM will follow. Original Note: CM met with Patient at bedside and addressed IMM with him, providing Patient with the original and a copy has been placed on the chart. Patient lives in a house with his Son, Brother, and Grandson and he uses both a cane and a walker to assist with mobility. Patient has a Nurse 1/week and he believes it is through [facility]. Patient's goal is home/resume services vs [facility] pending PT Eval; CM has initiated and will follow for dc planning. PCP is Dr. Kym Sebastian and HCP is Daughter/Kamla. If Patient is dc'd to home, Son or Brother will transport.
[2024-11-14] MEDS: Acetaminophen 325 MG TABLET 650 MG PO (09:32)
--- NOTE | 2024-11-14 11:30 | P.PNIM_ITS ---
Subjective Subjective Date of Service: 11/14/24 Interval History: Seen and evaluated this morning Feels weak and has no energy Knee pain CIWA score 1 On O2 supplement no other events Review of Systems No fever, chills or weakness No chest pain, palpitation reporting shortness of breath and coughing No abdominal pain, nausea or vomiting No urinary symptoms left knee pain Physical Exam 2 Vital Signs: Vital Signs: Last Vital Signs Temp 97.7 F 11/14/24 11:16 Pulse 53 11/14/24 11:16 Resp 20 11/14/24 11:16 BP 110/58 L 11/14/24 11:16 Pulse Ox 98 11/14/24 11:16 O2 Del Method Nasal Cannula 11/14/24 11:16 O2 Flow Rate 4 11/14/24 11:16 BMI result Body Mass Index 19.8 Const: Other: Constitutional : Awake, interactive, not in distress Neck : Normal inspection, Supple Cardiovascular : RRR, no JVP, +1 lower extremity edema Respiratory : good bilateral air entry, basal crackles, wheezes or rhonchi Gastrointestinal: soft, lax, Normal bowel sounds, Non tender Skin : Warm, Dry Neurological : Alert & oriented x3, No focal deficit Objective Data Active Medications Acetaminophen (Acetaminophen 325 Mg Tablet) 650 mg PO Q6H PRN PRN Reason: Pain, Mild 1-3,fever,headache Last Admin: 11/14/24 09:32 Dose: 650 mg Documented By: DELICIA Albuterol Sulfate (Albuterol Sulfate (0.083%) 2.5 Mg/3 Ml Vial.Neb) 2.5 mg INHALE Q4H PRN PRN Reason: Shortness of Breath/Wheezing Albuterol/Ipratropium (Albuterol/Iprat 2.5/0.5mg 3 Ml Ampul.Neb) 3 ml INHALE RQ6H WHILE AWAKE [facility] Last Admin: 11/14/24 07:31 Dose: 3 ml Documented By: RAFAEL Benzonatate (Benzonatate 100 Mg Capsule) 100 mg PO TID PRN PRN Reason: Cough Calcium Carbonate (Calcium Carbonate 750 Mg Tab.Chew) 750 mg PO Q4H PRN PRN Reason: Heartburn Ceftriaxone Sodium (Ceftriaxone Sodium 1 Gm Vial) 1 gm IVPUSH Q24H [facility] Enoxaparin Sodium (Enoxaparin Sodium 40 Mg/0.4 Ml Syringe) 40 mg SUBCUT Q24H [facility] Last Admin: 11/13/24 22:38 Dose: 40 mg Documented By: SAL Doxycycline Hyclate 100 mg/ (Sodium Chloride) 250 mls @ 166.67 mls/hr IV Q12H [facility] Magnesium Hydroxide (Milk Of Magnesia 30 Ml Oral.Susp) 30 ml PO DAILY PRN PRN Reason: Constipation Melatonin (Melatonin 3 Mg Tablet) 6 mg PO BEDTIME PRN PRN Reason: Insomnia Methylprednisolone Sodium Succinate (Methylprednisolone Sod Succ 40 Mg/Ml Vial) 40 mg IVPUSH Q12H [facility] Last Admin: 11/14/24 07:35 Dose: 40 mg Documented By: ANDRADE Metoprolol Tartrate (Metoprolol Tartrate 100 Mg Tablet) 100 mg PO BID [facility]; Protocol Last Admin: 11/14/24 09:32 Dose: Not Given Documented By: DELICIA Non-Admin Reason: Decreased Blood Pressure Ondansetron HCl (Ondansetron Hcl 4 Mg/2 Ml Vial) 4 mg IVPUSH Q8H PRN PRN Reason: Nausea and Vomiting Sodium Chloride (0.9 % Sodium Chloride Flush 3 Ml Syringe) 3 ml IVFLUSH QSHIFT [facility] Last Admin: 11/14/24 07:36 Dose: 3 ml Documented By: ANDRADE Labs 11/14/24 05:31 11/14/24 05:31 Labs: Laboratory Results - last 24 hr 11/13/24 11/13/24 11/13/24 14:24 14:29 17:00 MCV 95.6 MCH 30.9 MCHC 32.3 RDW 18.0 H Plt Count 215 D MPV 10.0 Immature Gran % (Auto) 0.4 Neut % (Auto) 82.5 H Lymph % (Auto) 6.7 L [place] % (Auto) 9.7 Eos % (Auto) 0.2 Baso % (Auto) 0.5 Lymph # (Auto) 0.7 L [place] # (Auto) 1.0 Eos # (Auto) 0.0 Baso # (Auto) 0.1 Abs Immat Gran (auto) 0.04 H Absolute Neuts (auto) 8.4 H Absolute Nucleated RBC 0.000 Nucleated RBC % (auto) 0.0 Smear Tech's Comments VBG pH 7.25 L 7.28 L VBG pCO2 58 50 VBG pO2 27 45 VBG HCO3 26 23 VBG O2 Saturation < 30.0 67.0 VBG Base Excess -1.8 -3.4 Anion Gap 14 Estim Creat Clear Calc 58.9 Estimated GFR > 60 Random Glucose 82 Lactic Acid Lactic Acid F/U @ 2Hr Lactic Acid F/U @ 4Hr Calcium 8.2 L Magnesium 1.7 Total Bilirubin 0.6 AST 33 ALT 7 Alkaline Phosphatase 135 H B-Natriuretic Peptide 1027 H Total Protein 6.8 Albumin 3.7 Lipase < 4 L Hold Red Top See Note Urine Color Urine Appearance Urine pH Ur Specific [place] Urine Protein Urine Glucose (UA) Urine Ketones Urine Blood Urine Nitrite Ur Leukocyte Esterase Urine RBC Urine WBC Ur Squamous Epith Cells Urine Bacteria Hyaline Casts Digoxin 1.5 Urine Opiates Screen Ur Buprenorphine Scrn Ur Oxycodone Screen Urine Methadone Screen Urine Fentanyl Screen Ur Barbiturates Screen Ur Phencyclidine Scrn Ur Amphetamines Screen U Benzodiazepines Scrn Urine Cocaine Screen U Marijuana (THC) Screen Ethyl Alcohol 89 Influenza Type A (PCR) NEGATIVE Influenza Type B (PCR) NEGATIVE RSV RNA Qual (PCR) NEGATIVE SARS-CoV-2 RNA (RT-PCR) NEGATIVE 11/13/24 11/13/24 11/13/24 17:13 17:25 20:12 MCV MCH MCHC RDW Plt Count MPV Immature Gran % (Auto) Neut % (Auto) Lymph % (Auto) [place] % (Auto) Eos % (Auto) Baso % (Auto) Lymph # (Auto) [place] # (Auto) Eos # (Auto) Baso # (Auto) Abs Immat Gran (auto) Absolute Neuts (auto) Absolute Nucleated RBC Nucleated RBC % (auto) Smear Tech's Comments VBG pH VBG pCO2 VBG pO2 VBG HCO3 VBG O2 Saturation VBG Base Excess Anion Gap Estim Creat Clear Calc Estimated GFR Random Glucose Lactic Acid 6.4 H* Lactic Acid F/U @ 2Hr 3.1 H* Lactic Acid F/U @ 4Hr Calcium Magnesium Total Bilirubin AST ALT Alkaline Phosphatase B-Natriuretic Peptide Total Protein Albumin Lipase Hold Red Top Urine Color Yellow Urine Appearance Cloudy Urine pH 5.0 Ur Specific [place] 1.015 Urine Protein Negative Urine Glucose (UA) Negative Urine Ketones Negative Urine Blood Trace H Urine Nitrite Negative Ur Leukocyte Esterase Moderate (2+) H Urine RBC 3-5 H Urine WBC >50 H Ur Squamous Epith Cells 0-2 Urine Bacteria None Seen Hyaline Casts 0-2 Digoxin Urine Opiates Screen Not Detected Ur Buprenorphine Scrn Not Detected Ur Oxycodone Screen Not Detected Urine Methadone Screen Not Detected Urine Fentanyl Screen POSITIVE H Ur Barbiturates Screen Not Detected Ur Phencyclidine Scrn Not Detected Ur Amphetamines Screen Not Detected U Benzodiazepines Scrn Not Detected Urine Cocaine Screen Not Detected U Marijuana (THC) Screen Not Detected Ethyl Alcohol Influenza Type A (PCR) Influenza Type B (PCR) RSV RNA Qual (PCR) SARS-CoV-2 RNA (RT-PCR) 11/13/24 11/14/24 22:20 05:31 MCV 92.6 MCH 31.0 MCHC 33.5 RDW 18.2 H Plt Count 209 MPV 9.6 Immature Gran % (Auto) 0.7 H Neut % (Auto) 92.4 H Lymph % (Auto) 4.1 L [place] % (Auto) 2.5 Eos % (Auto) 0.0 Baso % (Auto) 0.3 Lymph # (Auto) 0.3 L [place] # (Auto) 0.2 Eos # (Auto) 0.0 Baso # (Auto) 0.0 Abs Immat Gran (auto) 0.05 H Absolute Neuts (auto) 7.1 Absolute Nucleated RBC 0.000 Nucleated RBC % (auto) 0.0 Smear Tech's Comments VERIFIED VBG pH VBG pCO2 VBG pO2 VBG HCO3 VBG O2 Saturation VBG Base Excess Anion Gap 12 Estim Creat Clear Calc 71.9 Estimated GFR > 60 Random Glucose 138 H Lactic Acid Lactic Acid F/U @ 2Hr Lactic Acid F/U @ 4Hr 2.4 H* Calcium 8.1 L Magnesium Total Bilirubin 0.9 AST 28 ALT 6 Alkaline Phosphatase 125 H B-Natriuretic Peptide Total Protein 6.5 Albumin 3.5 Lipase Hold Red Top Urine Color Urine Appearance Urine pH Ur Specific [place] Urine Protein Urine Glucose (UA) Urine Ketones Urine Blood Urine Nitrite Ur Leukocyte Esterase Urine RBC Urine WBC Ur Squamous Epith Cells Urine Bacteria Hyaline Casts Digoxin Urine Opiates Screen Ur Buprenorphine Scrn Ur Oxycodone Screen Urine Methadone Screen Urine Fentanyl Screen Ur Barbiturates Screen Ur Phencyclidine Scrn Ur Amphetamines Screen U Benzodiazepines Scrn Urine Cocaine Screen U Marijuana (THC) Screen Ethyl Alcohol Influenza Type A (PCR) Influenza Type B (PCR) RSV RNA Qual (PCR) SARS-CoV-2 RNA (RT-PCR) Microbiology Microbiology Results: Microbiology 11/13/24 18:01 Urine Culture - Preliminary Urine clean catch - Clean Catch Midstream Culture in progress. Assessment and Plan (1) Acute lactic acidosis: Status: Acute (2) Elevated brain natriuretic peptide (BNP) level: Status: Acute (3) Acute respiratory failure with hypoxia and hypercapnia: Status: Acute (4) Pneumonia: Status: Acute (5) Alcohol use: Status: Acute (6) COPD (chronic obstructive pulmonary disease): Status: Acute Plan A 69 years old male with PMH of sCHF on digoxin, CAD, Alcholol abuse, Afib no on AC, COPD among others who presents to the hospital after a fall at home with left knee pain found to be hypoxic. Acute hypoxic respiratory failure secondary to dCHF and COPD exacerbation BNP elevated CTA showing emphysema but no significant fluid overload\effusion IV lasix in ED, hold on more now Give steroids and nebulizers Wean O2 down as tolerated Alcohol abuse with hx of withdrawal Keep on CIWA Thiamin, Folic PHenobarb when needed addiction team acute Lactic acidosis secondary to hypoxia, nebulizers and alcohol intake not due to severe sepsis trended down with IV boluses Fall PT eval no fracutres in XR Pneumonia\pneumonitis Atelactasis and consolidations in RUL Doxycycline and Ceftriaxone for now pending ucltures Lung nodules CTA reporting ill-defined nodules in the left upper lobe suspicious for primary or metastatic lung lesion. The largest lesion measures 1 cm on axial image . Hx Afib, chronic not on AC for falls Continue Metopfolol, Digoxin DVT PPx Lovenox The patient will need overnight hospital stay for treatment of hypoxic respiratory failure on IV antibiotics, IV steroids and nebulizers with O2 supplement. Quality Stroke Does the patient have a stroke diagnosis?: No VTE Prior VTE?: No VTE Risk Level:: Medical - moderate - high VTE Device Contraindication: Treatment Not Indicated VTE Drug Contraindication: N/A - Med Ordered
--- NOTE | 2024-11-14 13:06 | MHC.CM.PN ---
PT is recommending STR; CM will follow.
[2024-11-14] MEDS: cefTRIAXone sodium 1 GM VIAL IVPUSH (17:18)
[2024-11-14] MEDS: oxyCODONE HCl Immed Release 5 MG TABLET 2.5 MG PO (17:18)
[2024-11-14] MEDS: Doxycycline Hyclate 100 MG in 0.9 % Sodium Chloride 250 ML 166.67 MG IV (17:18)
[2024-11-14] MEDS: Metoprolol Tartrate 100 MG TABLET PO (19:59)
[2024-11-14] MEDS: Enoxaparin Sodium 40 MG/0.4 ML SYRINGE SUBCUT (19:59)
[2024-11-15] VITALS (11 sets, daily range): BP systolic 110–138; BP diastolic 65–87; PULSE 64–84; RESP 16–20; TEMP 36–36.6; O2SAT 89–95
[2024-11-15] MEDS: Doxycycline Hyclate 100 MG in 0.9 % Sodium Chloride 250 ML 166.67 MG IV ×2 (04:16→16:03)
[2024-11-15 06:44] LABS: Basophils Percent Auto 0.1 % (0-2); Eosinophils Percent Auto 0.1 % (0-4); Hematocrit 35.5 % (42.0-52.0); Hemoglobin 11.9 g/dl (14.0-18.0); Imm Gran Abs Auto 0.11 X10*3/uL (0.00-0.03); Imm Gran Pct Auto 0.7 % (0.0-0.4); Lymphocytes Absolute Auto 0.4 X10*3/uL (1.2-4.9); Lymphocytes Percent Auto 2.4 % (20-40); MANUAL DIFF FLAG SCAN; Mean Corpuscular HGB Conc 33.5 g/dl (31.0-36.0); Mean Corpuscular Hemoglobin 31.2 pg (27.0-33.0); Mean Corpuscular Volume 92.9 fL (80.0-98.0); Mean Platelet Volume 10.4 fL (9.4-12.4); Monocytes Absolute Auto 0.6 X10*3/uL (0.1-1.2); Neutrophils Absolute Auto 14.7 x10*3/uL (2.0-8.3); Neutrophils Percent Auto 92.7 % (45-73); Platelet Count 229 X10*3/uL (160-400); Red Blood Count 3.82 X10*6/uL (4.60-5.80); Red Cell Distribution Width 18.3 % (11.0-16.0); SCAN SMEAR FLAG 1; White Blood Count 15.9 X10*3/uL (4.8-10.8)
[2024-11-15 06:56] LABS: Anion Gap 13 (12-20); Blood Urea Nitrogen 28 mg/dL (9-16); Calcium 8.3 mg/dL (8.4-10.2); Carbon Dioxide 23 mmol/L (22-29); Chloride 106 mmol/L (96-108); Creatinine Clr Calc Pharmacy 66.2; Estimated Glomerular Filt Rate > 60; Glucose Random 130 mg/dL (60-115); Potassium 4.3 mmol/L (3.3-5.1); Sodium 138 mmol/L (135-145)
[2024-11-15] MEDS: Albuterol/Iprat 2.5/0.5MG 3 ML AMPUL.NEB INHALE ×3 (07:33→19:46)
[2024-11-15] MEDS: 0.9 % Sodium Chloride Flush 3 ML SYRINGE IVFLUSH ×3 (07:42→20:26)
[2024-11-15] MEDS: Metoprolol Tartrate 100 MG TABLET PO ×2 (07:42→20:26)
[2024-11-15] MEDS: methylPREDNISolone Sod Succ 40 MG/ML VIAL IVPUSH ×2 (07:42→20:26)
[2024-11-15 08:59] LABS: SLIDE REVIEW VERIFIED
--- NOTE | 2024-11-15 10:20 | MHC.CM.PN ---
Per ROUNDS discussion, Patient is not yet medically cleared for dc (Still being treated for PNA/COPD/CHF and CT of Knee today); PT is recommending STR and CM spoke with Patient at bedside today regarding that recommendation. Patient does not feel that he will need STR and prefers to go home. CM informed Patient that CM will check back with him, once medically cleared for dc. CM will follow.
--- NOTE | 2024-11-15 10:45 | P.PNIM_ITS ---
Subjective Subjective Date of Service: 11/15/24 Interval History: Left knee pain otherwise feels at baseline Physical Exam 2 Vital Signs: Vital Signs: Last Vital Signs Temp 96.8 F 11/15/24 07:15 Pulse 82 11/15/24 07:35 Resp 18 11/15/24 07:35 BP 127/74 11/15/24 07:15 Pulse Ox 91 L 11/15/24 07:15 O2 Del Method Nasal Cannula 11/15/24 07:15 O2 Flow Rate 2 11/15/24 07:15 BMI result Body Mass Index 19.8 Alert oriented x3, no acute distress, chronically ill-appearing, temporal wasting, poor air movement bilateral, knees nontender nonswollen Objective Data Active Medications Acetaminophen (Acetaminophen 325 Mg Tablet) 650 mg PO Q6H PRN PRN Reason: Pain, Mild 1-3,fever,headache Last Admin: 11/14/24 09:32 Dose: 650 mg Documented By: DELICIA Albuterol Sulfate (Albuterol Sulfate (0.083%) 2.5 Mg/3 Ml Vial.Neb) 2.5 mg INHALE Q4H PRN PRN Reason: Shortness of Breath/Wheezing Albuterol/Ipratropium (Albuterol/Iprat 2.5/0.5mg 3 Ml Ampul.Neb) 3 ml INHALE RQ6H WHILE AWAKE [facility] Last Admin: 11/15/24 07:33 Dose: 3 ml Documented By: RAFAEL Benzonatate (Benzonatate 100 Mg Capsule) 100 mg PO TID PRN PRN Reason: Cough Calcium Carbonate (Calcium Carbonate 750 Mg Tab.Chew) 750 mg PO Q4H PRN PRN Reason: Heartburn Ceftriaxone Sodium (Ceftriaxone Sodium 1 Gm Vial) 1 gm IVPUSH Q24H [facility] Last Admin: 11/14/24 17:18 Dose: 1 gm Documented By: TEMITOPE Enoxaparin Sodium (Enoxaparin Sodium 40 Mg/0.4 Ml Syringe) 40 mg SUBCUT Q24H [facility] Last Admin: 11/14/24 19:59 Dose: 40 mg Documented By: DAVID Doxycycline Hyclate 100 mg/ (Sodium Chloride) 250 mls @ 166.67 mls/hr IV Q12H [facility] Last Infusion: 11/15/24 06:19 Dose: Infused Documented By: DAVID Magnesium Hydroxide (Milk Of Magnesia 30 Ml Oral.Susp) 30 ml PO DAILY PRN PRN Reason: Constipation Melatonin (Melatonin 3 Mg Tablet) 6 mg PO BEDTIME PRN PRN Reason: Insomnia Methylprednisolone Sodium Succinate (Methylprednisolone Sod Succ 40 Mg/Ml Vial) 40 mg IVPUSH Q12H [facility] Last Admin: 11/15/24 07:42 Dose: 40 mg Documented By: STEPHAN Metoprolol Tartrate (Metoprolol Tartrate 100 Mg Tablet) 100 mg PO BID [facility]; Protocol Last Admin: 11/15/24 07:42 Dose: 100 mg Documented By: STEPHAN Ondansetron HCl (Ondansetron Hcl 4 Mg/2 Ml Vial) 4 mg IVPUSH Q8H PRN PRN Reason: Nausea and Vomiting Oxycodone HCl (Oxycodone Hcl Immed Release 5 Mg Tablet) 2.5 mg PO Q6H PRN PRN Reason: Pain, Severe (Pain Scale 7-10) Last Admin: 11/14/24 17:18 Dose: 2.5 mg Documented By: TEMITOPE Sodium Chloride (0.9 % Sodium Chloride Flush 3 Ml Syringe) 3 ml IVFLUSH QSHIFT [facility] Last Admin: 11/15/24 07:42 Dose: 3 ml Documented By: SETPHAN Labs 11/15/24 06:22 11/15/24 06:22 Labs: Laboratory Results - last 24 hr 11/15/24 06:22 MCV 92.9 MCH 31.2 MCHC 33.5 RDW 18.3 H Plt Count 229 MPV 10.4 Immature Gran % (Auto) 0.7 H Neut % (Auto) 92.7 H Lymph % (Auto) 2.4 L [place] % (Auto) 4.0 Eos % (Auto) 0.1 Baso % (Auto) 0.1 Lymph # (Auto) 0.4 L [place] # (Auto) 0.6 Eos # (Auto) 0.0 Baso # (Auto) 0.0 Abs Immat Gran (auto) 0.11 H Absolute Neuts (auto) 14.7 H Absolute Nucleated RBC 0.000 Nucleated RBC % (auto) 0.0 Smear Tech's Comments VERIFIED Anion Gap 13 Estim Creat Clear Calc 66.2 Estimated GFR > 60 Random Glucose 130 H Calcium 8.3 L Microbiology Microbiology Results: Microbiology 11/13/24 17:38 Blood Culture - Preliminary Blood - Venous No growth after 24 hours. 11/13/24 17:25 Blood Culture - Preliminary Blood - Venous No growth after 24 hours. 11/13/24 18:01 Urine Culture - Preliminary Urine clean catch - Clean Catch Midstream Culture in progress. Assessment and Plan (1) Acute lactic acidosis: Status: Acute (2) Elevated brain natriuretic peptide (BNP) level: Status: Acute (3) Acute respiratory failure with hypoxia and hypercapnia: Status: Acute (4) Pneumonia: Status: Acute (5) Alcohol use: Status: Acute (6) COPD (chronic obstructive pulmonary disease): Status: Acute Plan 69M PMH of CHF with recovered ejection fraction, CAD, Alcholol abuse, Afib not on AC, chronic hypoxic respiratory failure on 2 L due to COPD presented to the hospital after a fall at home with left knee pain Chronic hypoxic respiratory failure secondary COPD with acute decompensation and acute on chronic CHF with recovered ejection fraction BNP elevated CTA showing emphysema but no significant fluid overload\effusion IV lasix in ED, hold on more now steroids and nebulizers Wean O2 down as tolerated Alcohol dependence with hx of withdrawal Keep on CIWA Thiamin, Folic PHenobarb when needed addiction team acute Lactic acidosis secondary to hypoxia, nebulizers and alcohol intake not due to severe sepsis trended down with IV boluses Fall PT eval no fracutres in XR, still with left knee pain will check CT Pneumonia\pneumonitis Atelactasis and consolidations in RUL Doxycycline and Ceftriaxone for now pending ucltures Lung nodules CTA reporting ill-defined nodules in the left upper lobe suspicious for primary or metastatic lung lesion. The largest lesion measures 1 cm on axial image . Hx Afib, chronic not on AC for falls Continue Metopfolol, Digoxin DVT PPx Lovenox Full code reason for continued hospitalization: left knee pain Quality Stroke Does the patient have a stroke diagnosis?: No VTE Prior VTE?: No VTE Risk Level:: Medical - moderate - high VTE Device Contraindication: Treatment Not Indicated VTE Drug Contraindication: N/A - Med Ordered
[2024-11-15] MEDS: Fluticasone/Vilanterol 200/25 BLST.W.DEV 1 PUFF INHALE (11:34)
[2024-11-15] MEDS: cefTRIAXone sodium 1 GM VIAL IVPUSH (17:35)
[2024-11-15] MEDS: Enoxaparin Sodium 40 MG/0.4 ML SYRINGE SUBCUT (20:26)
[2024-11-16] VITALS (9 sets, daily range): BP systolic 127–159; BP diastolic 65–75; PULSE 53–85; RESP 16–20; TEMP 36.1–36.4; O2SAT 89–100
[2024-11-16] MEDS: Doxycycline Hyclate 100 MG in 0.9 % Sodium Chloride 250 ML 166.67 MG IV (03:58)
[2024-11-16] MEDS: Albuterol/Iprat 2.5/0.5MG 3 ML AMPUL.NEB INHALE ×3 (07:34→19:50)
[2024-11-16] MEDS: Fluticasone/Vilanterol 200/25 BLST.W.DEV 1 PUFF INHALE (07:34)
[2024-11-16 07:35] LABS: Hematocrit 35.8 % (42.0-52.0); Hemoglobin 11.9 g/dl (14.0-18.0); Mean Corpuscular HGB Conc 33.2 g/dl (31.0-36.0); Mean Corpuscular Hemoglobin 31.1 pg (27.0-33.0); Mean Corpuscular Volume 93.5 fL (80.0-98.0); Mean Platelet Volume 10.6 fL (9.4-12.4); Platelet Count 237 X10*3/uL (160-400); Red Blood Count 3.83 X10*6/uL (4.60-5.80); Red Cell Distribution Width 18.4 % (11.0-16.0); White Blood Count 13.6 X10*3/uL (4.8-10.8)
[2024-11-16 07:51] LABS: Anion Gap 11 (12-20); Blood Urea Nitrogen 26 mg/dL (9-16); Calcium 8.4 mg/dL (8.4-10.2); Carbon Dioxide 22 mmol/L (22-29); Chloride 108 mmol/L (96-108); Creatinine Clr Calc Pharmacy 75.5; Estimated Glomerular Filt Rate > 60; Glucose Random 129 mg/dL (60-115); Magnesium 1.6 mg/dL (1.6-2.6); Potassium 4.1 mmol/L (3.3-5.1); Sodium 137 mmol/L (135-145)
[2024-11-16] MEDS: methylPREDNISolone Sod Succ 40 MG/ML VIAL IVPUSH ×2 (07:52→20:20)
[2024-11-16] MEDS: Thiamine HCL 100 MG TABLET PO (07:52)
[2024-11-16] MEDS: Aspirin Enteric Coated 81 MG TABLET.DR PO (07:53)
[2024-11-16] MEDS: Cholecalciferol (Vitamin D3) 25 MCG TABLET PO (07:53)
[2024-11-16] MEDS: Atorvastatin Calcium 20 MG TABLET PO (07:53)
[2024-11-16] MEDS: 0.9 % Sodium Chloride Flush 3 ML SYRINGE IVFLUSH ×3 (07:53→20:20)
[2024-11-16] MEDS: Famotidine 20 MG TABLET PO (07:53)
[2024-11-16] MEDS: Metoprolol Tartrate 100 MG TABLET PO (07:53)
[2024-11-16] MEDS: Digoxin 0.125 MG TABLET PO (07:53)
--- NOTE | 2024-11-16 09:00 | P.PNIM_ITS ---
Subjective Subjective Date of Service: 11/16/24 Interval History: Still with left knee pain, unwilling to bear weight Physical Exam 2 Vital Signs: Vital Signs: Last Vital Signs Temp 96.9 F 11/16/24 07:46 Pulse 72 11/16/24 07:46 Resp 20 11/16/24 07:46 BP 142/67 H 11/16/24 07:46 Pulse Ox 93 11/16/24 07:46 O2 Del Method Nasal Cannula 11/16/24 07:46 O2 Flow Rate 2 11/16/24 07:46 BMI result Body Mass Index 19.8 Alert oriented x3, no acute distress, chronically ill-appearing, temporal wasting, poor air movement bilateral, knees nontender nonswollen Objective Data Active Medications Acetaminophen (Acetaminophen 325 Mg Tablet) 650 mg PO Q6H PRN PRN Reason: Pain, Mild 1-3,fever,headache Last Admin: 11/14/24 09:32 Dose: 650 mg Documented By: DELICIA Albuterol Sulfate (Albuterol Sulfate (0.083%) 2.5 Mg/3 Ml Vial.Neb) 2.5 mg INHALE Q4H PRN PRN Reason: Shortness of Breath/Wheezing Albuterol/Ipratropium (Albuterol/Iprat 2.5/0.5mg 3 Ml Ampul.Neb) 3 ml INHALE RQ6H WHILE AWAKE [facility] Last Admin: 11/16/24 07:34 Dose: 3 ml Documented By: MICHELLE Aspirin (Aspirin Enteric Coated 81 Mg Tablet.) 81 mg PO DAILY [facility] Last Admin: 11/16/24 07:53 Dose: 81 mg Documented By: STEPHAN Atorvastatin Calcium (Atorvastatin Calcium 20 Mg Tablet) 20 mg PO DAILY [facility] Last Admin: 11/16/24 07:53 Dose: 20 mg Documented By: STEPHAN Benzonatate (Benzonatate 100 Mg Capsule) 100 mg PO TID PRN PRN Reason: Cough Calcium Carbonate (Calcium Carbonate 750 Mg Tab.Chew) 750 mg PO Q4H PRN PRN Reason: Heartburn Ceftriaxone Sodium (Ceftriaxone Sodium 1 Gm Vial) 1 gm IVPUSH Q24H [facility] Last Admin: 11/15/24 17:35 Dose: 1 gm Documented By: DAMARIS Digoxin (Digoxin 0.125 Mg Tablet) 0.125 mg PO DAILY [facility]; Protocol Last Admin: 11/16/24 07:53 Dose: 0.125 mg Documented By: STEPHAN Enoxaparin Sodium (Enoxaparin Sodium 40 Mg/0.4 Ml Syringe) 40 mg SUBCUT Q24H [facility] Last Admin: 11/15/24 20:26 Dose: 40 mg Documented By: DAVID Famotidine (Famotidine 20 Mg Tablet) 20 mg PO DAILY [facility] Last Admin: 11/16/24 07:53 Dose: 20 mg Documented By: STEPHAN Fluticasone/Vilanterol (Fluticasone/Vilanterol 200/25 Blst.W.Dev) 1 puff INHALE RDAILY [facility] Last Admin: 11/16/24 07:34 Dose: 1 puff Documented By: MICHELLE Doxycycline Hyclate 100 mg/ (Sodium Chloride) 250 mls @ 166.67 mls/hr IV Q12H [facility] Last Infusion: 11/16/24 06:27 Dose: Infused Documented By: DAVID Magnesium Hydroxide (Milk Of Magnesia 30 Ml Oral.Susp) 30 ml PO DAILY PRN PRN Reason: Constipation Melatonin (Melatonin 3 Mg Tablet) 6 mg PO BEDTIME PRN PRN Reason: Insomnia Methylprednisolone Sodium Succinate (Methylprednisolone Sod Succ 40 Mg/Ml Vial) 40 mg IVPUSH Q12H [facility] Last Admin: 11/16/24 07:52 Dose: 40 mg Documented By: STEPHAN Metoprolol Tartrate (Metoprolol Tartrate 100 Mg Tablet) 100 mg PO BID [facility]; Protocol Last Admin: 11/16/24 07:53 Dose: 100 mg Documented By: STEPHAN Ondansetron HCl (Ondansetron Hcl 4 Mg/2 Ml Vial) 4 mg IVPUSH Q8H PRN PRN Reason: Nausea and Vomiting Oxycodone HCl (Oxycodone Hcl Immed Release 5 Mg Tablet) 2.5 mg PO Q6H PRN PRN Reason: Pain, Severe (Pain Scale 7-10) Last Admin: 11/14/24 17:18 Dose: 2.5 mg Documented By: TEMITOPE Sodium Chloride (0.9 % Sodium Chloride Flush 3 Ml Syringe) 3 ml IVFLUSH QSHIFT [facility] Last Admin: 11/16/24 07:53 Dose: 3 ml Documented By: STEPHAN Thiamine HCl (Thiamine Hcl 100 Mg Tablet) 100 mg PO DAILY [facility] Last Admin: 11/16/24 07:52 Dose: 100 mg Documented By: STEPHAN Vitamin D (Cholecalciferol (Vitamin D3) 25 Mcg Tablet) 25 mcg PO DAILY [facility] Last Admin: 11/16/24 07:53 Dose: 25 mcg Documented By: STEPHAN Labs 11/16/24 06:40 11/16/24 06:40 Labs: Laboratory Results - last 24 hr 11/16/24 06:40 MCV 93.5 MCH 31.1 MCHC 33.2 RDW 18.4 H Plt Count 237 MPV 10.6 Absolute Nucleated RBC 0.000 Nucleated RBC % (auto) 0.0 Anion Gap 11 L Estim Creat Clear Calc 75.5 Estimated GFR > 60 Random Glucose 129 H Calcium 8.4 Magnesium 1.6 Microbiology Microbiology Results: Microbiology 11/13/24 18:01 Urine Culture - Final Urine clean catch - Clean Catch Midstream Proteus mirabilis Enterococcus faecalis 11/13/24 17:38 Blood Culture - Preliminary Blood - Venous No growth after 48 hours. 11/13/24 17:25 Blood Culture - Preliminary Blood - Venous No growth after 48 hours. Assessment and Plan (1) Acute lactic acidosis: Status: Acute (2) Elevated brain natriuretic peptide (BNP) level: Status: Acute (3) Acute respiratory failure with hypoxia and hypercapnia: Status: Acute (4) Pneumonia: Status: Acute (5) Alcohol use: Status: Acute (6) COPD (chronic obstructive pulmonary disease): Status: Acute Plan 69M PMH of CHF with recovered ejection fraction, CAD, Alcholol abuse, Afib not on AC, chronic hypoxic respiratory failure on 2 L due to COPD presented to the hospital after a fall at home with left knee pain Chronic hypoxic respiratory failure secondary COPD with acute decompensation and acute on chronic CHF with recovered ejection fraction BNP elevated CTA showing emphysema but no significant fluid overload\effusion IV lasix in ED, hold on more now steroids and nebulizers Wean O2 down as tolerated Alcohol dependence with hx of withdrawal CIWA Thiamin, Folic PHenobarb when needed addiction team acute Lactic acidosis secondary to hypoxia, nebulizers and alcohol intake not due to severe sepsis trended down with IV boluses Fall with left knee pain PT no fracutres in XR, CT inconclusive Ortho eval Pneumonia\pneumonitis Atelactasis and consolidations in RUL Doxycycline and Ceftriaxone Lung nodules CTA reporting ill-defined nodules in the left upper lobe suspicious for primary or metastatic lung lesion. The largest lesion measures 1 cm on axial image . Hx Afib, chronic not on AC for falls Continue Metopfolol, Digoxin DVT PPx Lovenox Full code reason for continued hospitalization: left knee pain Quality Stroke Does the patient have a stroke diagnosis?: No VTE Prior VTE?: No VTE Risk Level:: Medical - moderate - high VTE Device Contraindication: Treatment Not Indicated VTE Drug Contraindication: N/A - Med Ordered
--- NOTE | 2024-11-16 12:44 | PM.CNOR ---
History of Present Illness HPI Consult date: 11/16/24 Chief complaint: hypoxia, pneumonia, alcoholism Narrative: Patient is a 69-year-old male who is admitted to the hospital after a fall Patient has been reporting left knee pain Of note, patient is status post ORIF of left distal femur with Dr. Yanez 2018 No acute fracture seen on x-ray, however there was an area of cortical disruption noted in the posterior aspect of the knee on CT scan that was concerning for potential acute fracture versus chronic abnormality Patient reports no pain in the knee at baseline, but does report pain with attempted ambulation Patient was in an immobilizer today Resting comfortably in bed Pain well managed Review of Systems Review of Systems: Yes all other systems are reviewed and are negative [facility] Past Medical History Medical History Pleural effusion Pneumonia Respiratory failure with hypoxia History of IA (myocardial infarction) History of seizure due to alcohol withdrawal Atrial fibrillation with slow ventricular response Hypoxemia CAP (community acquired pneumonia) Chronic respiratory failure Atherosclerotic cardiovascular disease CHF (congestive heart failure) CAD (coronary artery disease) History of ischemic cardiomyopathy Tobacco abuse Alcohol abuse Hypercholesteremia COPD (chronic obstructive pulmonary disease) Surgical History Surgical History History of coronary artery bypass graft x 3 (~2012) History of surgery on lower extremity (~2017) Social History Social History Household Members: Family Household Members Other:: CHILDREN,GRANDCHILDREN Housing: House Do you presently have visiting nurse or other home services: Yes Alcohol intake: current Alcohol intake frequency: 3 or more drinks per day Alcohol type: hard liquor Patient Tobacco Use Status: Former Tobacco user Tobacco use type: Cigarette Cigarette Packs Per Day: 0.5 Cigarettes Per Day: 7 Years Smoked: 40+ Smoked in Last 30 Days: No e-Cigarette/Vaping Use: Never Used Second Hand Smoke Exposure: No Use of substances other than those prescribed or required for medical reasons: No Currently Displaying Signs/Symptoms of Drug Intoxication Withdrawal: No Have you been hit, kicked, punched, or otherwise hurt by someone within the past year? If so, by whom?: No Do you feel safe in your current relationship?: Yes Are you made to feel afraid or neglected: No Advance Directives: Yes Advance Directives on File: Yes Advance Directives Date on File: 11/08/20 Do you have a plan to hurt others: No Plan Recently lost weight without trying: No Eating poorly because of decreased appetite: No Nutrition Risks: Dental problems, Emaciation/Cachexia and Poor intake 0-25% >4 days service: No Current occupational status: retired Meds Allergies Allergy/AdvReac Type Severity Reaction Status Date / Time No Known Allergies Allergy Verified 11/13/24 12:21 [No Known Allergies*] Active Medications: Current Medications Acetaminophen (Acetaminophen 325 Mg Tablet) 650 mg PO Q6H PRN PRN Reason: Pain, Mild 1-3,fever,headache Last Admin: 11/14/24 09:32 Dose: 650 mg Albuterol Sulfate (Albuterol Sulfate (0.083%) 2.5 Mg/3 Ml Vial.Neb) 2.5 mg INHALE Q4H PRN PRN Reason: Shortness of Breath/Wheezing Albuterol/Ipratropium (Albuterol/Iprat 2.5/0.5mg 3 Ml Ampul.Neb) 3 ml INHALE RQ6H WHILE AWAKE [facility] Last Admin: 11/16/24 07:34 Dose: 3 ml Aspirin (Aspirin Enteric Coated 81 Mg Tablet.Dr) 81 mg PO DAILY [facility] Last Admin: 11/16/24 07:53 Dose: 81 mg Atorvastatin Calcium (Atorvastatin Calcium 20 Mg Tablet) 20 mg PO DAILY [facility] Last Admin: 11/16/24 07:53 Dose: 20 mg Benzonatate (Benzonatate 100 Mg Capsule) 100 mg PO TID PRN PRN Reason: Cough Calcium Carbonate (Calcium Carbonate 750 Mg Tab.Chew) 750 mg PO Q4H PRN PRN Reason: Heartburn Digoxin (Digoxin 0.125 Mg Tablet) 0.125 mg PO DAILY [facility]; Protocol Last Admin: 11/16/24 07:53 Dose: 0.125 mg Enoxaparin Sodium (Enoxaparin Sodium 40 Mg/0.4 Ml Syringe) 40 mg SUBCUT Q24H [facility] Last Admin: 11/15/24 20:26 Dose: 40 mg Famotidine (Famotidine 20 Mg Tablet) 20 mg PO DAILY [facility] Last Admin: 11/16/24 07:53 Dose: 20 mg Fluticasone/Vilanterol (Fluticasone/Vilanterol 200/25 Blst.W.Dev) 1 puff INHALE RDAILY [facility] Last Admin: 11/16/24 07:34 Dose: 1 puff Magnesium Hydroxide (Milk Of Magnesia 30 Ml Oral.Susp) 30 ml PO DAILY PRN PRN Reason: Constipation Melatonin (Melatonin 3 Mg Tablet) 6 mg PO BEDTIME PRN PRN Reason: Insomnia Methylprednisolone Sodium Succinate (Methylprednisolone Sod Succ 40 Mg/Ml Vial) 40 mg IVPUSH Q12H [facility] Last Admin: 11/16/24 07:52 Dose: 40 mg Metoprolol Tartrate (Metoprolol Tartrate 50 Mg Tablet) 50 mg PO BID [facility]; Protocol Ondansetron HCl (Ondansetron Hcl 4 Mg/2 Ml Vial) 4 mg IVPUSH Q8H PRN PRN Reason: Nausea and Vomiting Oxycodone HCl (Oxycodone Hcl Immed Release 5 Mg Tablet) 2.5 mg PO Q6H PRN PRN Reason: Pain, Severe (Pain Scale 7-10) Last Admin: 11/14/24 17:18 Dose: 2.5 mg Sodium Chloride (0.9 % Sodium Chloride Flush 3 Ml Syringe) 3 ml IVFLUSH QSHIFT [facility] Last Admin: 11/16/24 07:53 Dose: 3 ml Thiamine HCl (Thiamine Hcl 100 Mg Tablet) 100 mg PO DAILY [facility] Last Admin: 11/16/24 07:52 Dose: 100 mg Vitamin D (Cholecalciferol (Vitamin D3) 25 Mcg Tablet) 25 mcg PO DAILY [facility] Last Admin: 11/16/24 07:53 Dose: 25 mcg Home Medications ?Medication ?Instructions ?Recorded ?Confirmed ?Last Taken ?Type aspirin 81 mg tablet,delayed 81 mg PO DAILY 08/12/20 11/13/24 1 Day Ago History release ~11/12/24 thiamine HCl (vitamin B1) 100 mg 100 mg PO DAILY 11/05/20 11/13/24 1 Day Ago History tablet (Vitamin B-1) ~11/12/24 cholecalciferol (vitamin D3) 25 25 mcg PO DAILY 11/07/20 11/13/24 1 Day Ago History mcg (1,000 unit) capsule (Vitamin ~11/12/24 D3) Physical Exam Vital Signs: Vital Signs: Last Vital Signs Temp 97.0 F 02/13/25 11:31 Pulse 67 11/16/24 11:31 Resp 20 11/16/24 11:31 BP 143/67 H 11/16/24 11:31 Pulse Ox 91 L 11/16/24 11:31 O2 Del Method Nasal Cannula 11/16/24 11:31 O2 Flow Rate 2 11/16/24 11:31 BMI result Body Mass Index 19.8 Extrem: Other: Left knee normal to inspection, with a slight area of edema on the medial aspect No evidence of surrounding erythema, ecchymosis No evidence of infection No tenderness to palpation of the medial or lateral joint lines, anterior knee, patella, posterior knee, or elsewhere on the left knee Patient is able to flex and extend the digits of the left foot without difficulty Compartments soft, nontender Distal sensation intact Capillary refill brisk Results Labs 11/16/24 06:40 11/16/24 06:40 Labs: Abnormal lab results 11/16/24 Range/Units 06:40 WBC 13.6 H (4.8-10.8) X10*3/uL RBC 3.83 L (4.60-5.80) X10*6/uL Hgb 11.9 L (14.0-18.0) g/dl Hct 35.8 L (42.0-52.0) % RDW 18.4 H (11.0-16.0) % Anion Gap 11 L (12-20) BUN 26 H (9-16) mg/dL Random Glucose 129 H (60-115) mg/dL H & H 11/13/24 11/14/24 11/15/24 Range/Units 14:24 05:31 06:22 Hgb 12.6 L 12.6 L 11.9 L (14.0-18.0) g/dl Hct 39.0 L D 37.6 L 35.5 L (42.0-52.0) % 11/16/24 Range/Units 06:40 Hgb 11.9 L (14.0-18.0) g/dl Hct 35.8 L (42.0-52.0) % All other labs normal. Diagnostic results Knee x-ray: report reviewed and image reviewed Knee CT: report reviewed and image reviewed Assessment and Plan (1) Left knee pain: Status: Acute (2) Status post open reduction and internal fixation (ORIF) of fracture of lateral condyle of left femur: Status: Acute Plan 1. pain of left knee status post fall Status post ORIF of left distal femur 2017 Some imaging findings concerning potential fracture Case was discussed with Dr. Canseco, and a collaborative treatment was formed: Per Dr. Canseco, no acute intervention is indicated this patient at this time Patient should remain nonweightbearing on the left lower extremity Patient should remain in immobilizer of left knee Patient will follow-up in 2-3 weeks in Orthopedic office Continue pain management per Medicine Continue with all other recommendations per Medicine Procedures Date of Service Date of Service: 11/16/24
[2024-11-16] MEDS: Metoprolol Tartrate 50 MG TABLET PO (20:17)
[2024-11-16] MEDS: Enoxaparin Sodium 40 MG/0.4 ML SYRINGE SUBCUT (20:21)
[2024-11-17 03:35] VITALS: BP 164/80; PULSE 88; RESP 16; TEMP 36.9; O2SAT 92
[2024-11-17 07:17] VITALS: BP 126/73; PULSE 71; RESP 16; TEMP 36; O2SAT 90
[2024-11-17] MEDS: Albuterol/Iprat 2.5/0.5MG 3 ML AMPUL.NEB INHALE (07:30)
[2024-11-17] MEDS: Fluticasone/Vilanterol 200/25 BLST.W.DEV 1 PUFF INHALE (07:30)
[2024-11-17 07:33] VITALS: PULSE 60; RESP 16; O2SAT 94
[2024-11-17] MEDS: methylPREDNISolone Sod Succ 40 MG/ML VIAL IVPUSH (08:14)
[2024-11-17] MEDS: Aspirin Enteric Coated 81 MG TABLET.DR PO (08:14)
[2024-11-17] MEDS: Cholecalciferol (Vitamin D3) 25 MCG TABLET PO (08:14)
[2024-11-17] MEDS: Digoxin 0.125 MG TABLET PO (08:14)
[2024-11-17] MEDS: Famotidine 20 MG TABLET PO (08:14)
[2024-11-17] MEDS: Metoprolol Tartrate 50 MG TABLET PO (08:14)
[2024-11-17] MEDS: Thiamine HCL 100 MG TABLET PO (08:14)
[2024-11-17] MEDS: Atorvastatin Calcium 20 MG TABLET PO (08:14)
[2024-11-17] MEDS: 0.9 % Sodium Chloride Flush 3 ML SYRINGE IVFLUSH (08:15)
--- NOTE | 2024-11-17 09:23 | P.DS_ITS ---
DS: Providers Provider Date of Service: 11/17/24 Date of admission: 11/13/24 18:04 Date of discharge: 11/17/24 Primary care physician: Kym Sebastian MD Consults: 11/13/24 18:04 Addiction Medicine Routine Consulting Provider: Addiction Covering Reason for consultation: alcoholism 11/16/24 07:27 Consult to Orthopedics Routine Consulting Provider[place] [facility] Reason for consultation: fall, unable to weight bear on left leg DS: Diagnosis Discharge Diagnosis (1) Left knee pain: Status: Acute (2) Status post open reduction and internal fixation (ORIF) of fracture of lateral condyle of left femur: Status: Acute DS: Summary Hospital Course Hospital Course: from initial hpi: 69 years old male with PMH of sCHF on digoxin, CAD, Alcholol abuyse, Afib no on AC, COPD among others who presents to the hospital after a fall at home with left knee pain found to be hypoxic. The patient reports standing were he lost his balance and fell but doesnt recall details. was drinking today. .reporting left knee pain. XR lt leg showing intact lateral fixation hardward of distal femur. He denies No chest pain, palpitations, nausea, vomiting, diarrhea or urinary symptoms. reported more SOB the last few days. In ED found with BNP >1000, Alcohol of 87, CXR showing effusions. hospital course: Patient admitted for chronic hypoxic respiratory failure secondary to COPD with acute decompensation acute on chronic CHF with recovered ejection fraction. Was treated with IV Lasix in the ER and diuresed well. Weaned down to baseline 2 L. for history of alcohol dependence did not have any withdrawal. Acute lactic acidosis was due to hypoxia not sepsis. For fall with left knee pain x-ray and CT did not show any conclusive evidence of fracture was seen by ortho recommended nonweightbearing for 2-4 weeks and outpatient follow up as well as knee immobilizer. For pneumonia/pneumonitis was treated with ceftriaxone doxycycline and will continue 5 more days of Ceftin. For lung nodules noted on CTA recommend outpatient follow-up largest was 1 cm and is suspicious for primary lung versus metastatic. For chronic AFib not on anticoagulation due to falls was continued on metoprolol and digoxin noted to have some episodes of asymptomatic bradycardia, metoprolol was decreased to 50 mg b.i.d.. expected to require less than 30 days at SNF. Time Attestation Discharge Coordination Time (in mins): 33 Quality: Safe Use of Opioids Does Pt have an Active Cancer Diagnosis on the Problem List?: No Quality: Stroke Does the patient have a stroke diagnosis?: No Physical Exam Vital Signs: Vital Signs: Last Vital Signs Temp 96.8 F 11/17/24 07:17 Pulse 60 11/17/24 07:33 Resp 16 11/17/24 07:33 BP 126/73 11/17/24 07:17 Pulse Ox 90 L 11/17/24 07:17 O2 Del Method Nasal Cannula 11/17/24 07:17 O2 Flow Rate 2 11/17/24 07:17 BMI result Body Mass Index 19.8 Extrem: Other: Left knee normal to inspection, with a slight area of edema on the medial aspect No evidence of surrounding erythema, ecchymosis No evidence of infection No tenderness to palpation of the medial or lateral joint lines, anterior knee, patella, posterior knee, or elsewhere on the left knee Patient is able to flex and extend the digits of the left foot without difficulty Compartments soft, nontender Distal sensation intact Capillary refill brisk DS: Data Data Completed and Pending Completed studies during hospitalization [Text1]: Procedures Detoxification Services for Substance Abuse Treatment (10/19/20) Drainage of Right Pleural Cavity, Percutaneous Approach (04/12/24) Labs on day of discharge: Preliminary micro results at discharge 11/13/24 17:38 Blood Culture - Preliminary Blood - Venous No growth after 48 hours. 11/13/24 17:25 Blood Culture - Preliminary Blood - Venous No growth after 48 hours. Discharge Plan Discharge Anticipated Discharge Date/Time: 11/17/24 09:13 Patient Disposition: Xfer SNF Discharge Diagnosis: copd, pna, chf Referrals: Noé Mary PA [Physician Reservations Agent] - 1 Month Kym Sebastian MD [Primary Care Provider] - 1 Week Gilbert Christian MD [Physician] - 1 Week (copd, lung nodules) Discharge Medications: New metoprolol tartrate 50 mg Tablet 50 mg PO BID Qty: 0 0RF Protocol: Hold for SBP/HR < HOLD for SBP < : 90 HOLD for HR < : 60 prednisone 20 mg tablet 40 mg PO DAILY Qty: 10 0RF cefuroxime axetil 500 mg tablet 500 mg PO BID Qty: 10 0RF Continued atorvastatin 20 mg tablet 20 mg PO DAILY Qty: 90 3RF fluticasone furoate-vilanterol [Breo Ellipta] 200-25 mcg/dose blister with device 1 inh inhalation Q24H 30 Days Qty: 60 4RF furosemide 20 mg tablet 20 mg PO DAILY PRN (Reason: for edema) Qty: 90 3RF digoxin 125 mcg (0.125 mg) tablet 125 mcg PO DAILY Qty: 90 3RF thiamine HCl (vitamin B1) [Vitamin B-1] 100 mg Tablet 100 mg PO DAILY cholecalciferol (vitamin D3) [Vitamin D3] 25 mcg (1,000 unit) Capsule 25 mcg PO DAILY famotidine 20 mg Tablet 20 mg PO DAILY Qty: 30 0RF aspirin 81 mg tablet,delayed release (DR/EC) 81 mg PO DAILY albuterol sulfate 90 mcg/actuation HFA aerosol inhaler 2 puff inhalation Q4-6H PRN (Reason: shortness of breath or wheezing) 30 Days Qty: 8.5 3RF Discontinued metoprolol tartrate 100 mg tablet 100 mg PO BID Qty: 60 3RF Discharge Orders: Discharge Order (Routine); Ordered 11/17/24 Ordered By: Anibal White Diet: Advance to usual diet Activity on Discharge: [facility]AR[facility]RA Stand Alone Forms: Patient Portal Discharge page Print Language: Faroese Care Plan Goals: recovery Health Concerns: copd, left knee pain Plan of Treatment: rehab, [facility] for 2-4 weeks, follow up ortho 5 more days prednisone and ceftin Workup incidentally found nodules on lung CT - follow up with Pulmonary Assessment: see above
--- NOTE | 2024-11-17 11:18 | MHC.CM.PN ---
Patient has been medically cleared for dc today to [facility]SNF. CM met with Patient at bedside and addressed IMM with him, providing Patient with the original and a copy has been placed on the chart. Patient is pleased with and has accepted a bed offer from [facility] and he will dc there today at 3:30 PM, via [facility]. With Patient's permission, DAVID spoke with Daughter/HCP/Kamla @ [phone] and she also is pleased with the dc plan.
[2024-11-17 11:56] VITALS: BP 138/60; PULSE 66; RESP 16; TEMP 36.1; O2SAT 91
[2024-11-17 15:43] VITALS: BP 141/67; PULSE 78; RESP 16; TEMP 36; O2SAT 94
--- NOTE | 2024-11-22 10:29 | MHC.CM.PN ---
Patient comes to [facility] from [facility], where he is a [facility] bed hold. Patient is on contact precautions and IMM was addressed verbally. Returning to [facility] is the goal and CM has initiated and will follow for dc planning. PCP is Dr. Kym Sebastian and Daughter/Kamla is the HCP.INTEGRATION MANAGER Patient lived in a house with his Son, Brother, and Grandson and he used a cane & walker to assist with mobility. Patient [place] B[place] transport [place].
== END 2024-11-17 15:54 | disposition skilled nursing facility (03) | DRG 193 ==
LOC: HO.ED 17:04 → HO.EDOVER 18:10 → HO.IMC 11-14 07:16
PROVIDERS: Admitting Provider Student in an Organized Health Care Education/Training Program; Emergency Provider Emergency Medicine; PCP Student in an Organized Health Care Education/Training Program; Visit Provider Internal Medicine
DX: J18.9 Pneumonia, unspecified organism (principal); I50.33 Acute on chronic diastolic (congestive) heart failure; J96.22 Acute and chronic respiratory failure with hypercapnia; J96.21 Acute and chronic respiratory failure with hypoxia; J44.1 Chronic obstructive pulmonary disease with (acute) exacerbation; I48.20 Chronic atrial fibrillation, unspecified; J98.11 Atelectasis; C34.12 Malignant neoplasm of upper lobe, left bronchus or lung; J44.0 Chronic obstructive pulmonary disease with (acute) lower respiratory infection; F10.20 Alcohol dependence, uncomplicated; I25.10 Atherosclerotic heart disease of native coronary artery without angina pectoris; Y90.4 Blood alcohol level of 80-99 mg/100 ml; Z20.822 Contact with and (suspected) exposure to COVID-19; Z87.891 Personal history of nicotine dependence; Z79.51 Long term (current) use of inhaled steroids; Z79.82 Long term (current) use of aspirin; Z79.899 Other long term (current) drug therapy
CPT/HCPCS: 0241U; 36415; 70450; 71275; 72125; 72170; 73502; 73552; 73560; 73700; 80048; 80053; 80162; 80307; 81001; 82803; 83605; 83690; 83735; 83880; 85025; 85027; 87040; 87086; 87088; 87186; 93005; 94640; 97162; 97530; 99285; C1758; J0696; J1650; J1940; J2919; J3010; Q9967; S9485

== ENCOUNTER → 2024-11-13 12:20 | Outpatient (BNV) | payer MEDICARE, MEDICAID, SELFPAY | PROVIDERS: Emergency Provider Emergency Medicine; PCP Student in an Organized Health Care Education/Training Program; Visit Provider Internal Medicine Cardiovascular Disease | DX: R94.31 Abnormal electrocardiogram [ECG] [EKG] (principal) | CPT/HCPCS: 93010 ==

== ENCOUNTER → 2024-11-13 12:24 | Outpatient (BNV) | payer MEDICARE, MEDICAID, SELFPAY | PROVIDERS: Emergency Provider Emergency Medicine; PCP Student in an Organized Health Care Education/Training Program; Visit Provider Radiology Diagnostic Radiology | DX: R91.8 Other nonspecific abnormal finding of lung field (principal); J43.2 Centrilobular emphysema; M48.02 Spinal stenosis, cervical region; S12.000S Unspecified displaced fracture of first cervical vertebra, sequela; M47.892 Other spondylosis, cervical region; M41.82 Other forms of scoliosis, cervical region; I65.23 Occlusion and stenosis of bilateral carotid arteries; M26.643 Arthritis of bilateral temporomandibular joint; M85.89 Other specified disorders of bone density and structure, multiple sites; Z96.7 Presence of other bone and tendon implants; I70.202 Unspecified atherosclerosis of native arteries of extremities, left leg; M17.12 Unilateral primary osteoarthritis, left knee | CPT/HCPCS: 70450; 71275; 72125; 73552; 73560 ==

== ENCOUNTER 2024-11-13 18:04 | Outpatient (BNV) | payer MEDICARE, MEDICAID, SELFPAY | END 2024-11-15 10:02 | PROVIDERS: Admitting Provider Student in an Organized Health Care Education/Training Program; Emergency Provider Emergency Medicine; PCP Student in an Organized Health Care Education/Training Program; Visit Provider Nuclear Medicine | DX: M85.89 Other specified disorders of bone density and structure, multiple sites (principal); T84.093A Other mechanical complication of internal left knee prosthesis, initial encounter; M84.352A Stress fracture, left femur, initial encounter for fracture | CPT/HCPCS: 73700 ==

== ENCOUNTER → 2024-11-13 18:04 | Outpatient (BNV) | payer MEDICARE, MEDICAID, SELFPAY | PROVIDERS: Admitting Provider Student in an Organized Health Care Education/Training Program; Emergency Provider Emergency Medicine; PCP Student in an Organized Health Care Education/Training Program; Visit Provider Student in an Organized Health Care Education/Training Program | DX: J96.21 Acute and chronic respiratory failure with hypoxia (principal); J96.22 Acute and chronic respiratory failure with hypercapnia; J44.0 Chronic obstructive pulmonary disease with (acute) lower respiratory infection; E87.21 Acute metabolic acidosis; R79.89 Other specified abnormal findings of blood chemistry; J18.9 Pneumonia, unspecified organism; F10.90 Alcohol use, unspecified, uncomplicated | CPT/HCPCS: 99223; 99232; 99233 ==

== ENCOUNTER → 2024-11-13 18:04 | Outpatient (BNV) | payer MEDICARE, MEDICAID, SELFPAY | PROVIDERS: Admitting Provider Student in an Organized Health Care Education/Training Program; Emergency Provider Emergency Medicine; PCP Student in an Organized Health Care Education/Training Program | DX: M25.562 Pain in left knee (principal); Z98.890 Other specified postprocedural states; Z87.81 Personal history of (healed) traumatic fracture | CPT/HCPCS: 99221 ==

== ENCOUNTER 2024-11-21 08:17 | Inpatient (IN) | payer MEDICARE, MEDICAID, SELFPAY ==
[2024-11-21] VITALS (15 sets, daily range): BP systolic 102–151; BP diastolic 49–110; PULSE 68–136; RESP 12–24; TEMP 36.4–38.6; O2SAT 94–100; BMI 18.3
--- NOTE | ~2024-11-21 | XR_ITS ---
EXAMINATION: XR CHEST CLINICAL INFORMATION: sob, hypoxia COMPARISON: [facility] 11/13/2024. Chest x-ray 04/23/2024, 04/21/2024. TECHNIQUE: Frontal view of the chest was obtained. FINDINGS: The cardiac, hilar, and mediastinal contours are normal. Prior CABG. Aortic mural calcifications. Lungs are diffusely hyperaerated and hyperlucent, consistent with COPD. Vague opacity lateral left upper lobe, and region of known pulmonary nodule. Scarring in the right upper lobe distribution. Lungs otherwise clear. No effusion or pneumothorax. No focal osseous or soft tissue abnormality. XR/XR chest 1V IMPRESSION: 1. COPD. Right upper lobe scarring. 2. Nodular opacity left upper lobe laterally and region of known suspected neoplasm. 3. No active superimposed disease. Electronically signed by: Francisco Odell MD 11/21/2024 12:53 PM EST
--- NOTE | 2024-11-21 08:26 | ED.SOB ---
HPI - SOB/Dyspnea General Chief Complaint: Dyspnea Stated Complaint: diff breathing, w/ wheezes Time Seen by Provider: 11/21/24 08:25 Source: patient, EMS, RN notes reviewed and old records reviewed Mode of arrival: EMS Limitations: physical limitation (SOB, tachypnea, resp distress) History of Present Illness ED Provider: Warren Mccloud PA-C HPI Narrative: 69 yo male with history of COPD on PRN O2, HFpEF, pulmonary HTN, ETOH use disorder, smoker w/ lung nodules, afib not on anticoagulation, CAD,[place] [facility] [place]/ [place] who presents to the ER via EMS from [facility] for evaluation of SOB and hypoxia. He was reportedly requiring 6L NC there to maintain saturations of 90%. He states he is very SOB and it started suddenly in the last day. He has been coughing. History limited due to SOB and WOB. MD elicited complaint: shortness of breath Pertinent past history: COPD Context: recent illness Timing: progressively worsening Severity: severe Relieving factors: nothing Known history of: COPD Treatment prior to arrival: oxygen and bronchodilator Related Data Home Medications ?Medication ?Instructions ?Recorded ?Confirmed aspirin 81 mg tablet,delayed 81 mg PO DAILY 08/12/20 11/13/24 release thiamine HCl (vitamin B1) 100 mg 100 mg PO DAILY 11/05/20 11/13/24 tablet (Vitamin B-1) cholecalciferol (vitamin D3) 25 25 mcg PO DAILY 11/07/20 11/13/24 mcg (1,000 unit) capsule (Vitamin D3) Previous Rx's ?Medication ?Instructions ?Recorded albuterol sulfate 90 mcg/actuation 2 puff inhalation Q4-6H PRN 11/09/23 aerosol inhaler shortness of breath or wheezing 30 days #8.5 grams atorvastatin 20 mg tablet 20 mg PO DAILY #90 tabs 01/10/24 Breo Ellipta 200 mcg-25 mcg/dose 1 inh inhalation Q24H SEVERE copd 04/07/24 powder for inhalation (fluticasone 30 days #60 ea furoate-vilanterol) famotidine 20 mg tablet 20 mg PO DAILY #30 tabs 04/23/24 furosemide 20 mg tablet 20 mg PO DAILY PRN for edema #90 05/03/24 tabs digoxin 125 mcg (0.125 mg) tablet 125 mcg PO DAILY #90 tabs 11/01/24 cefuroxime axetil 500 mg tablet 500 mg PO BID #10 tabs 11/17/24 metoprolol tartrate 50 mg tablet 50 mg PO BID #0 tabs 11/17/24 prednisone 20 mg tablet 40 mg (2 x 20 mg) PO DAILY #10 tabs 11/17/24 Allergies Allergy/AdvReac Type Severity Reaction Status Date / Time No Known Allergies Allergy Verified 11/21/24 08:28 [No Known Allergies*] Review of Systems Review of Systems: Yes Unobtainable due to mental condition [facility] Past Medical History Medical History Pleural effusion Pneumonia Respiratory failure with hypoxia History of ID (myocardial infarction) History of seizure due to alcohol withdrawal Atrial fibrillation with slow ventricular response Hypoxemia CAP (community acquired pneumonia) Chronic respiratory failure Atherosclerotic cardiovascular disease CHF (congestive heart failure) CAD (coronary artery disease) History of ischemic cardiomyopathy Tobacco abuse Alcohol abuse Hypercholesteremia COPD (chronic obstructive pulmonary disease) Surgical History History of coronary artery bypass graft x 3 (~2012) History of surgery on lower extremity (~2017) Social History Social History Household Members: Family Household Members Other:: CHILDREN,GRANDCHILDREN Housing: House Do you presently have visiting nurse or other home services: Yes Alcohol intake: current Alcohol intake frequency: 3 or more drinks per day Alcohol type: hard liquor Patient Tobacco Use Status: Former Tobacco user Tobacco use type: Cigarette Cigarette Packs Per Day: 0.5 Cigarettes Per Day: 7 Years Smoked: 40+ Smoked in Last 30 Days: No e-Cigarette/Vaping Use: Never Used Second Hand Smoke Exposure: No Use of substances other than those prescribed or required for medical reasons: No Advance Directives: Yes Advance Directives on File: Yes Advance Directives Date on File: 11/08/20 service: No Current occupational status: retired Physical Exam Vital Signs: Vital Signs: Last Vital Signs Temp 101.4 F H 11/21/24 09:25 Pulse 92 11/21/24 12:56 Resp 16 11/21/24 14:03 BP 116/62 11/21/24 12:56 Pulse Ox 99 11/21/24 12:56 O2 Del Method CPAP 11/21/24 12:56 Oxygen Flow Rate 7 11/21/24 08:26 BMI result Body Mass Index 18.3 Appearance: Alert with severe increased WOB, tachypneic, tripodding, speaking in 2 word sentences, chronically ill appearing Head: normocephalic, atraumatic. Eyes: Pupils equal, round and reactive to light. ENT: Pharynx normal. No tonsillar swelling or exudate. Neck: Normal inspection. Neck supple. CVS: tachycardic, irregularly irregular. Pulses normal. Respiratory: severe respiratory distress. Breath sounds diminished throughout with faint end expiratory wheezes Abdomen: Soft and nontender. +BS x4 Skin: Skin warm and dry. Normal skin color. Normal skin turgor. No rashes. Extremities: No lower extremity edema. No joint swelling. Neuro/psych: Oriented X 3, moving all extremities spontaneously and following commands. CN II-XII intact. Normal speech and cognition. Medications Administered Discontinued Medications Generic Name Dose Route Start Last Admin Trade Name Freq PRN Reason Stop Dose Admin Fentanyl 25 mcg 11/21/24 09:13 11/21/24 09:19 Fentanyl Citrate/Pf 100 Mcg/2 Ml Vial IVPUSH 11/21/24 09:14 25 mcg ONCE ONE Administration Protocol Furosemide 40 mg 11/21/24 08:32 11/21/24 08:45 Furosemide 40 Mg/4 Ml Vial IVPUSH 11/21/24 08:33 40 mg ONCE ONE Administration Protocol Vancomycin HCl 1,500 mg/ 500 mls @ 333.333 mls/hr 11/21/24 08:33 11/21/24 11:38 Sodium Chloride IV 11/21/24 10:02 Infused ONCE ONE Infusion Cefepime HCl 2 gm in 50 mls @ 100 mls/hr 11/21/24 08:33 11/21/24 09:24 Maxipime IV 11/21/24 09:02 Infused ONCE ONE Infusion Acetaminophen 1,000 mg in 100 mls @ 400 mls/hr 11/21/24 09:35 11/21/24 10:15 Ofirmev IV 11/21/24 09:49 Infused ONCE ONE Infusion Magnesium Sulfate 2 gm in 50 mls @ 25 mls/hr 11/21/24 10:00 11/21/24 14:19 Magnesium Sulfate/H2o IV 11/21/24 11:59 Infused ONCE ONE Infusion Methylprednisolone Sodium Succinate 60 mg 11/21/24 08:33 11/21/24 08:46 Methylprednisolone Sod Succ 125 Mg/2 Ml Vial IVPUSH 11/21/24 08:34 60 mg ONCE ONE Administration Medical Decision Making Medical Decision Making [facility] Narrative: 69 yo male with COPD on PRN O2, HFpEF, recent PNA, CAD, afib not on anticoagulation, coming in with SOB and hypoxia. Tripodding on arrival. DNR/DNI on paperwork. RT called for rescue CPAP. Tachycardic up to 170s with resp distress. Sepsis alert called. Temp 101.4. IV tylenol ordered. Concern for HCAP vs CHF vs COPD exacerbations. Empiric abx ordered along with IV lasix and IV steroids. Once on CPAP patient was restless and trying to pull off the mask. Fentanyl 25 mcg given x1 with improvement. He is now resting comfortably on CPAP and HR much improved. Patient found to have influenza A. starting tamiflu. Patient has been tolerating CPAP well for the last few hours, RR 20s with good minute ventilation. Taken off CPAP at 2pm and placed on HFNC will plan to admit for further management of the flu Differential Diagnosis Differential Diagnoses: The differential diagnosis associated with the presentation includes acute CHF exacerbation, acute COPD exacerbation, HCAP, viral sepsis, aspiration PNA Admission/Observation Consideration of admission/observation: Escalation of care including admission/observation considered Consult Healthcare Provider Management of the patient was discussed with: Hospitalist Lab Data [facility] Lab Attestation statement: I reviewed the patient's lab results. mild leukocytosis, mild normocytic anemia, lactic acid 2.2, troponin flat, BNP chronically elevated 11/21/24 08:38 11/21/24 09:07 Labs: Lab Results 11/21/24 11/21/24 11/21/24 Range/Units 08:38 08:39 08:46 WBC 11.8 H (4.8-10.8) X10*3/uL RBC 4.28 L (4.60-5.80) X10*6/uL Hgb 13.2 L (14.0-18.0) g/dl Hct 40.8 L (42.0-52.0) % MCV 95.3 (80.0-98.0) fL MCH 30.8 (27.0-33.0) pg MCHC 32.4 (31.0-36.0) g/dl RDW 18.1 H (11.0-16.0) % Plt Count 270 (160-400) X10*3/uL MPV 10.5 (9.4-12.4) fL Immature Gran % (Auto) 2.1 H (0.0-0.4) % Neut % (Auto) 82.0 H (45-73) % Lymph % (Auto) 4.5 L (20-40) % Stevens % (Auto) 11.1 H (2-11) % Eos % (Auto) 0.1 (0-4) % Baso % (Auto) 0.2 (0-2) % Lymph # (Auto) 0.5 L (1.2-4.9) X10*3/uL Stevens # (Auto) 1.3 H (0.1-1.2) X10*3/uL Eos # (Auto) 0.0 (0.0-0.4) X10*3/uL Baso # (Auto) 0.0 (0.0-0.2) X10*3/uL Abs Immat Gran (auto) 0.25 H (0.00-0.03) X10*3/uL Absolute Neuts (auto) 9.7 H (2.0-8.3) x10*3/uL Absolute Nucleated RBC 0.000 (0.0-0.012) X10*3/uL Nucleated RBC % (auto) 0.0 (0.0-0.2) /100WBC VBG pH 7.43 (7.32-7.43) VBG pCO2 39 mmHg VBG pO2 34 mmHg VBG HCO3 26 (22-26) mmol/L VBG O2 Saturation 54.0 % VBG Base Excess 2.1 mmol/L Sodium (135-145) mmol/L Potassium (3.3-5.1) mmol/L Chloride (96-108) mmol/L Carbon Dioxide (22-29) mmol/L Anion Gap (12-20) BUN (9-16) mg/dL Creatinine (0.5-1.4) mg/dL Estim Creat Clear Calc Estimated GFR Random Glucose (60-115) mg/dL Lactic Acid (0.5-2.0) mmol/L Lactic Acid F/U @ 2Hr (0.5-2.0) mmol/L Calcium (8.4-10.2) mg/dL Magnesium (1.6-2.6) mg/dL Total Bilirubin (0.0-1.0) mg/dL Direct Bilirubin (0.0-0.5) mg/dL AST (5-37) U/L ALT (0-40) U/L Alkaline Phosphatase (39-117) U/L Troponin I High Sens (<3.5-35.0) ng/L B-Natriuretic Peptide 1022 H (<100) pg/mL Total Protein (6.5-8.0) g/dL Albumin (3.5-5.0) g/dL Procalcitonin ng/mL Urine Color Urine Appearance Urine pH (5.0-9.0) Ur Specific [place] (1.005-1.025) Urine Protein (Neg-Trace) mg/dL Urine Glucose (UA) (Negative) mg/dL Urine Ketones (Negative) mg/dL Urine Blood (Negative) Urine Nitrite (Negative) Ur Leukocyte Esterase (Negative) Influenza Type A (PCR) POSITIVE A (Negative) Influenza Type B (PCR) NEGATIVE (Negative) RSV RNA Qual (PCR) NEGATIVE (Negative) SARS-CoV-2 RNA (RT-PCR) NEGATIVE (Negative) 11/21/24 11/21/24 11/21/24 Range/Units 09:07 09:08 09:29 WBC (4.8-10.8) X10*3/uL RBC (4.60-5.80) X10*6/uL Hgb (14.0-18.0) g/dl Hct (42.0-52.0) % MCV (80.0-98.0) fL MCH (27.0-33.0) pg MCHC (31.0-36.0) g/dl RDW (11.0-16.0) % Plt Count (160-400) X10*3/uL MPV (9.4-12.4) fL Immature Gran % (Auto) (0.0-0.4) % Neut % (Auto) (45-73) % Lymph % (Auto) (20-40) % Stevens % (Auto) (2-11) % Eos % (Auto) (0-4) % Baso % (Auto) (0-2) % Lymph # (Auto) (1.2-4.9) X10*3/uL Stevens # (Auto) (0.1-1.2) X10*3/uL Eos # (Auto) (0.0-0.4) X10*3/uL Baso # (Auto) (0.0-0.2) X10*3/uL Abs Immat Gran (auto) (0.00-0.03) X10*3/uL Absolute Neuts (auto) (2.0-8.3) x10*3/uL Absolute Nucleated RBC (0.0-0.012) X10*3/uL Nucleated RBC % (auto) (0.0-0.2) /100WBC VBG pH (7.32-7.43) VBG pCO2 mmHg VBG pO2 mmHg VBG HCO3 (22-26) mmol/L VBG O2 Saturation % VBG Base Excess mmol/L Sodium 141 (135-145) mmol/L Potassium 4.3 (3.3-5.1) mmol/L Chloride 102 (96-108) mmol/L Carbon Dioxide 28 (22-29) mmol/L Anion Gap 15 (12-20) BUN 21 H (9-16) mg/dL Creatinine 0.84 (0.5-1.4) mg/dL Estim Creat Clear Calc 68.6 Estimated GFR > 60 Random Glucose 122 H (60-115) mg/dL Lactic Acid 3.3 H* (0.5-2.0) mmol/L Lactic Acid F/U @ 2Hr (0.5-2.0) mmol/L Calcium 8.7 D (8.4-10.2) mg/dL Magnesium 1.5 L (1.6-2.6) mg/dL Total Bilirubin 1.0 (0.0-1.0) mg/dL Direct Bilirubin 0.4 (0.0-0.5) mg/dL AST 37 (5-37) U/L ALT 36 (0-40) U/L Alkaline Phosphatase 99 (39-117) U/L Troponin I High Sens 27.5 (<3.5-35.0) ng/L B-Natriuretic Peptide (<100) pg/mL Total Protein 6.9 (6.5-8.0) g/dL Albumin 3.8 (3.5-5.0) g/dL Procalcitonin 0.11 ng/mL Urine Color Yellow Urine Appearance Clear Urine pH 5.5 (5.0-9.0) Ur Specific [place] 1.020 (1.005-1.025) Urine Protein Negative (Neg-Trace) mg/dL Urine Glucose (UA) Negative (Negative) mg/dL Urine Ketones Negative (Negative) mg/dL Urine Blood Negative (Negative) Urine Nitrite Negative (Negative) Ur Leukocyte Esterase Negative (Negative) Influenza Type A (PCR) (Negative) Influenza Type B (PCR) (Negative) RSV RNA Qual (PCR) (Negative) SARS-CoV-2 RNA (RT-PCR) (Negative) 11/21/24 11/21/24 Range/Units 10:52 11:31 WBC (4.8-10.8) X10*3/uL RBC (4.60-5.80) X10*6/uL Hgb (14.0-18.0) g/dl Hct (42.0-52.0) % MCV (80.0-98.0) fL MCH (27.0-33.0) pg MCHC (31.0-36.0) g/dl RDW (11.0-16.0) % Plt Count (160-400) X10*3/uL MPV (9.4-12.4) fL Immature Gran % (Auto) (0.0-0.4) % Neut % (Auto) (45-73) % Lymph % (Auto) (20-40) % Stevens % (Auto) (2-11) % Eos % (Auto) (0-4) % Baso % (Auto) (0-2) % Lymph # (Auto) (1.2-4.9) X10*3/uL Stevens # (Auto) (0.1-1.2) X10*3/uL Eos # (Auto) (0.0-0.4) X10*3/uL Baso # (Auto) (0.0-0.2) X10*3/uL Abs Immat Gran (auto) (0.00-0.03) X10*3/uL Absolute Neuts (auto) (2.0-8.3) x10*3/uL Absolute Nucleated RBC (0.0-0.012) X10*3/uL Nucleated RBC % (auto) (0.0-0.2) /100WBC VBG pH (7.32-7.43) VBG pCO2 mmHg VBG pO2 mmHg VBG HCO3 (22-26) mmol/L VBG O2 Saturation % VBG Base Excess mmol/L Sodium (135-145) mmol/L Potassium (3.3-5.1) mmol/L Chloride (96-108) mmol/L Carbon Dioxide (22-29) mmol/L Anion Gap (12-20) BUN (9-16) mg/dL Creatinine (0.5-1.4) mg/dL Estim Creat Clear Calc Estimated GFR Random Glucose (60-115) mg/dL Lactic Acid (0.5-2.0) mmol/L Lactic Acid F/U @ 2Hr 1.2 (0.5-2.0) mmol/L Calcium (8.4-10.2) mg/dL Magnesium (1.6-2.6) mg/dL Total Bilirubin (0.0-1.0) mg/dL Direct Bilirubin (0.0-0.5) mg/dL AST (5-37) U/L ALT (0-40) U/L Alkaline Phosphatase (39-117) U/L Troponin I High Sens 26.8 (<3.5-35.0) ng/L B-Natriuretic Peptide (<100) pg/mL Total Protein (6.5-8.0) g/dL Albumin (3.5-5.0) g/dL Procalcitonin ng/mL Urine Color Urine Appearance Urine pH (5.0-9.0) Ur Specific [place] (1.005-1.025) Urine Protein (Neg-Trace) mg/dL Urine Glucose (UA) (Negative) mg/dL Urine Ketones (Negative) mg/dL Urine Blood (Negative) Urine Nitrite (Negative) Ur Leukocyte Esterase (Negative) Influenza Type A (PCR) (Negative) Influenza Type B (PCR) (Negative) RSV RNA Qual (PCR) (Negative) SARS-CoV-2 RNA (RT-PCR) (Negative) ABG Data Attestation ABG: I personally reviewed and interpreted this ABG as follows: Interpretation: normal pH, no CO2 retention to suggest acute or chronic respiratory acidosis Independent Interpretation I performed an independent interpretation of an: EKG and Plain X-Ray Interpretation: ekg with rapid afib, HR 105, t-wave inversions that are new in lead II, III, aVF, V4-V6 with mild ST depressions. cxr with hyperinflation, increased vascular markings Radiology Impression Discussion of test interpretation with radiology: I have reviewed the radiologist's reading. Radiologist Impression: XR/XR chest 1V IMPRESSION: 1. COPD. Right upper lobe scarring. 2. Nodular opacity left upper lobe laterally and region of known suspected neoplasm. 3. No active superimposed disease. Independent Historian Clinical information obtained from an independent historian. History obtained from or confirmed by: EMS External Record Review External record reviewed: Inpatient record, Office record, Outpatient record, Prior outpatient labs and Prior outpatient radiology Tests considered The following testing was considered but not selected: CTA considered Prescription Management I considered prescription management with: Pain Medication and Antibiotic Chronic Conditions Patient?s care impacted by: Hypertension and Other (afib, HFpEF, COPD) Critical Care Time Critical Care Time Critical Care Time: Yes Total Critical Care Time: 48 Attestation: I have personally provided critical care time exclusive of time spent on separately billable procedures. Time includes review of lab data, radiology results, discussion with consultants, and monitoring for potential decompensation. Intervention performed as documented. Discharge Plan Discharge Clinical Impression: Acute respiratory failure with hypoxia, Influenza A Patient Disposition: Admitted As Inpatient Print Language: Mongolian
--- NOTE | 2024-11-21 08:27 | ECG_ITS ---
Test Reason : sob Blood Pressure : */* mmHG Vent. Rate : 132 BPM Atrial Rate : 132 BPM P-R Int : 136 ms QRS Dur : 164 ms QT Int : 438 ms P-R-T Axes : * 153 206 degrees QTcB Int : 648 ms Suspect limb lead reversal, interpretation assumes no reversal Sinus tachycardia with frequent , and consecutive Premature ventricular complexes Non-specific intra-ventricular conduction block Lateral infarct , age undetermined Abnormal ECG When compared with ECG of 13-Nov-2024 12:51, Significant changes have occurred Referred By: Mila Mccloud Electronically Signed By:
[2024-11-21] MEDS: cefEPime HCl/D5W 2 GM/50 ML PIGGYBACK IV (08:45)
[2024-11-21] MEDS: Furosemide 40 MG/4 ML VIAL IVPUSH (08:45)
[2024-11-21] MEDS: methylPREDNISolone Sod Succ 125 MG/2 ML VIAL 60 MG IVPUSH (08:46)
[2024-11-21 08:49] LABS: MANUAL DIFF FLAG NO
[2024-11-21 08:52] LABS: Basophils Percent Auto 0.2 % (0-2); Eosinophils Percent Auto 0.1 % (0-4); Hematocrit 40.8 % (42.0-52.0); Hemoglobin 13.2 g/dl (14.0-18.0); Imm Gran Abs Auto 0.25 X10*3/uL (0.00-0.03); Imm Gran Pct Auto 2.1 % (0.0-0.4); Lymphocytes Absolute Auto 0.5 X10*3/uL (1.2-4.9); Lymphocytes Percent Auto 4.5 % (20-40); Mean Corpuscular HGB Conc 32.4 g/dl (31.0-36.0); Mean Corpuscular Hemoglobin 30.8 pg (27.0-33.0); Mean Corpuscular Volume 95.3 fL (80.0-98.0); Mean Platelet Volume 10.5 fL (9.4-12.4); Monocytes Absolute Auto 1.3 X10*3/uL (0.1-1.2); Monocytes Percent Auto 11.1 % (2-11); Neutrophils Absolute Auto 9.7 x10*3/uL (2.0-8.3); Platelet Count 270 X10*3/uL (160-400); Red Blood Count 4.28 X10*6/uL (4.60-5.80); Red Cell Distribution Width 18.1 % (11.0-16.0); White Blood Count 11.8 X10*3/uL (4.8-10.8)
[2024-11-21 08:52] LABS: Venous Blood Gas Refer to POC result
[2024-11-21 08:52] LABS: VBG Base Excess 2.1 mmol/L; VBG HCO3 26 mmol/L (22-26); VBG pCO2 39 mmHg; VBG pH 7.43 (7.32-7.43); VBG pO2 34 mmHg
[2024-11-21 09:14] LABS: B Type Natriuretic Peptide 1022 pg/mL (<100)
[2024-11-21] MEDS: fentaNYL citrate/PF 100 MCG/2 ML VIAL 25 MCG IVPUSH (09:19)
--- OUTSIDE RECORDS SUMMARY | 2024-11-21 09:20 | XMS_ITS | Encounter Summary ---
Author Organization [employer] Address [address] [facility] [address] [place] [address] Care Team Providers Care Display Associate Name Role Phone Kym Sebastian MD Primary Care Provider [phone] Encounter Details Date Type Department Care Team (Late st Contact Info) Description 11/13/2024 Orders Only [facility] External Provider, [facility] Social History Tobacco Use Types Packs/Day Years Used Date Smoking Tobacco: Some Days Cigarettes Alcohol Use Standard Drinks/Week Comments Yes 0 (1 standard drink = 0.6 oz pur e alcohol) Housing Stability Answer Date Recorded What is your housing situation today? I have jessee may 01/20/[address] you li [...] Procedure Name Priority Date/Time Associated Diagnosis Comments CT KNEE WO CONTRAST LEFT Routine 11/15/2024 2:59 PM EST LACTIC ACID Routine 11/13/2024 5:25 PM EST URINALYSIS, COMPLETE, WITH REFLEX TO CULTURE Routine 11/13/2024 5:13 PM EST DRUG MONITOR, PANEL 1, SCREEN, URINE Routine 11/13/2024 5:13 PM EST VENOUS BLOOD GAS Routine 11/13/2024 5:00 PM EST VENOUS BLOOD GAS Routine 11/13/2024 2:29 PM EST XR HIP 2 OR 3 VIEWS RIGHT Routine 11/13/2024 1:57 PM EST XR FEMUR 2+ VIEWS LEFT Routine 11/13/2024 1:30 PM EST XR PELVIS 1-2 VIEWS Routine 11/13/2024 1 2:24 PM EST XR KNEE 1-2 VIEWS LEFT Routine 11/13/2024 12:24 PM EST CTA CHEST PE PROTOCAL Routine 11/13/2024 12:[address] CERVICAL SPINE WO CONTRAST Routine 11/13/2024 12:[address] HEAD WO CONTRAST Routine 11/13/2024 1 2:20 PM EST documented in this encounter Results * CT Kne w/o Contrast Left (11/15/2024 2:59 PM EST) Anatomical Region Laterality Modality Lower Extremities, Knee Left Computed Tomography 11/15/2024 2:59 PM EST Narrative 11/15/2024 3:02 PM EST ? [facility] ?[address] ?[place] [address] ? CT Scan Report ? Signed ? Patient: Runions,Noble F ?MR#: [id number] ?? 412 ? : 1955 ?Acct:[id number] ? Age/Sex: 69 / M ?ADM Date: 11/13/24 ? Loc: HO.IMC ?450-1 ? Attending Dr: Anibal White MD ? Ordering Physician: Anibal White MD ?? Date of Service: 11/15/24 ?? Procedure(s): CT knee LT wo IV con ?? Accession Number(s): [id number] ? cc: Anibal White MD; Kym Sebastian MD ? Report Number: ?? [id number]: Total DLP = ??196.00 mGy-cm ? CLINICAL HISTORY: pain, fall ? 3 views left knee ? Comparison: CR/NM/SR - XR KNEE LT 2V - 11/13/24 14:04 EST ? Findings: Evaluation is limited by the severe osteopenia and beam ?? hardening artifact from the prosthesis. ?? Chronic fracture of the distal femur. There is mild cortical irregularity ?? of the posterior aspect of the distal femur. Intact compression plate and ?? multiple screws of the distal femur. ?? Small joint effusion. ?? There is mild degenerative change. ?? No radiopaque foreign body. ? Impression: ?? Limited evaluation due to severe osteopenia. Mild cortical irregularity of ?? the posterior aspect of the distal femur. Acute fracture can not be ?? excluded. Further evaluation by MRI as indicated. ? This document has been electronically signed by: Dominic Wetzel MD on ?? 11/15/2024 14:59:20 ? Dictated By: ?Dominic Wetzel MD ? Signed By: ?<Electronically signed by Dominic Wetzel MD in OV> ? 11/15/24 1501 ? DD/ 1459 ? TD/TT: 11/15/24 1459 ? Digital Operations Analyst: ? Procedure Note Abril Klein - 11/15/[address] [address] [address] Scan Report Signed Patient: Luis MigueledwinaNoble FMR#: [id number] 412 : 6Acct:[id number] Age/Sex: 69 / MADM Date: 11/13/24 Loc: .[facility] 450-[address]: Anibal White MD Ordering Physician: Anibal White MD Date of Service: 11/15/24 Procedure(s): CT knee LT wo IV con Accession Number(s): [id number] cc: Anibal White MD; Kym Sebastian MD Report Number: [id number]: Total DLP = 196.00 mGy-cm CLINICAL HISTORY: pain, fall 3 views left knee Comparison: CR/NM/SR - XR KNEE LT 2V - 11/13/24 14:04 EST Findings: Evaluation is limited by the severe osteopenia and beam hardening artifact from the prosthesis. Chronic fracture of the distal femur. There is mild cortical irregularity of the posterior aspect of the distal femur. Intact compression plate and multiple screws of the distal femur. Small joint effusion. There is mild degenerative change. No radiopaque foreign body. Impression: Limited evaluation due to severe osteopenia. Mild cortical irregularity of the posterior aspect of the distal femur. Acute fracture can not be excluded. Further evaluation by MRI as indicated. This document has been electronically signed by: Dominic Wetzel MD on 11/15/2024 14:59:20 Dictated By: Dominic Wetzel MD Signed By: <Electronically signed by Dominic Wetzel MD in OV> 11/15/24 1501 DD/ 1459 TD/TT: 11/15/24 1459 Digital Operations Analyst: [facility] External Provider IM CT PROCEDURES Final Result * (ABNORMAL) Lactic Acid (11/13/2024 5:25 PM EST) Lactic Acid 6.4(HH) 0.5 - 2.0 mmol/L [facility] Comment:Critical value for t est(s): LACTA Results called to keyanna back by: SYD Person calling: KULWINDERMINC Date: 11/13/24Time: 1848 11/13/2024 5:25 PM EST 11/13/2024 5:30 PM EST us Generic External Data Provider LAB BLOOD ORDERAB LES Final Result [facility] [address] [place] [phone] [phone] * (ABNORMAL) Drug Monitoring, Panel 1, Screen, Urine (11/13/2024 5:13 PM EST) Opiate Screen Urine Not Detected Not Detect [facility] Comment:Opiate cut-off is 30 0 ng/mL.Positive results are unconfirmed and should not be used fornon-medical purposes. Barbiturates, Urine Not Detected Not Detect [facility] Comment:Barbiturate cut-off is 200 ng/mL.Positive results are unconfirmed and should not be used fornon-medical purposes. Phencyclidine Screen Urine Not Detected Not Detect [facility] Comment:Phencyclidine cut-of f is 25 ng/mL.Positive results are unconfirmed and should not be used fornon-medical purposes. Amphetamine Screen Urine Not Detected Not Detect [facility] Comment:Amphetamine cut-off is 1000 ng/mL.Positive results are unconfirmed and should not be used fornon-medical purposes. Benzodiazepines Screen Urine Not Detected Not Detect [facility] Comment:Benzodiazepine cut-o ff is 200 ng/mL.Positive results are unconfirmed and should not be used fornon-medical purposes. Cocaine Screen Urine Not Detected Not Detect [facility] Comment:Cocaine cut-off is 3 00 ng/mL.Positive results are unconfirmed and should not be used fornon-medical purposes. Cannabinoid Screen Urine Not Detected Not Detect [facility] Comment:Cannabinoid cut-off is 50 ng/mL.Positive results are unconfirmed and should not be used fornon-medical purposes. Methadone Screen, Urine Not Detected Not Detect ng/mL [facility] Comment:Methadone cut-off is 300 ng/mL.Positive results are unconfirmed and should not be used fornon-medical purposes. FENTANYL URINE POSITIVE(A) Not Detect [facility] Comment:Fentanyl cut-off is 1 ng/mL.Positive results are unconfirmed and should not be used fornon-medical purposes. Oxycodone Urine Screen Not Detected Not Detect ng/mL [facility] Comment:Oxycodone cut-off is 100 ng/mL.Positive results are unconfirmed and should not be used fornon-medical purposes. Buprenorphine Screen Not Detected Not Detect ng/mL [facility] Comment:Buprenorphine cut-of f is 5 ng/mL.Positive results are unconfirmed and should not be used fornon-medical purposes. 11/13/2024 5:13 PM EST 11/13/2024 5:30 PM EST us Generic External Data Provider LAB URINE ORDERAB LES Final Result [facility] [address] [place] [phone] * (ABNORMAL) Urinalysis, Complete, with Reflex to Culture (11/13/2024 5:13 PM EST) Color Urine Yellow [facility] Appearance Urine Cloudy [facility] PH 5.0 5.0 - 9.0 [facility] Glucose Urine UA Negative Negative mg/dL [facility] Urine Blood Trace(A) Negative [facility] Specific [place] - Urine 1.015 1.005 - 1.025 [facility] Urine Protein Negative Neg-Trace mg/dL [facility] Urine Ketones Negative Negative mg/dL [facility] Nitrite Urine Negative Negative [facility] Leukocyte Esterase Urine Moderate (2+)(A) Negative [facility] RBC Urine 3-5(A) 0 - 2 /HPF [facility] Urine WBC >50(A) 0 - 5 /HPF [facility] Urine Squamous Epithelial Cell 0-2 0 - 2 /HPF [facility] Urine Bacteria None Seen None Seen [facility] Hyaline Casts, Urine 0-2 0 - 2 /LPF [facility] 11/13/2024 5:13 PM EST 11/13/2024 5:30 PM EST Narrative [facility] - 11/13/2024 5:39 PM EST Urine, Clean Catch us Generic External Data Provider LAB URINE ORDERAB LES Final Result Performing Organization Address [facility] de Phone Number [facility] [address] [place] [phone] * (ABNORMAL) VENOUS BLOOD GAS (11/13/2024 5:00 PM EST) VBG pH 7.28(L) 7.32 - 7.43 [facility] Comment:METER #: [id number] additional_comment: Cb mojgan VBG PCO2 50 mmHg [facility] Comment:METER #: [id number] additional_comment: Cb miguelangeldj VBG PO2 45 mmHg [facility] Comment:METER #: [id number] additional_comment: Cb miguelangeldmilagro VBG Base Excess -3.4 mmol/L [facility] Comment:METER #: [id number] additional_comment: Cb miguelangeldj VBG HCO3 23 22 - 26 mmol/L [facility] Comment:METER #: [id number] additional_comment: Constantine ulrich O2 Sat, Tej 67.0 % [facility] Comment:METER #: [id number] additional_comment: Constantine ulrich 11/13/2024 5:00 PM EST 11/13/2024 5:05 PM EST us Generic External Data Provider LAB BLOOD ORDERAB LES Final Result Performing Organization Address [facility] Co de Phone Number [facility] [address] [place] [phone] * (ABNORMAL) VENOUS BLOOD GAS (11/13/2024 2:29 PM EST) VBG pH 7.25(L) 7.32 - 7.43 [facility] Comment:METER #: [id number] additional_comment: Cb miguelangeldj VBG PCO2 58 mmHg [facility] Comment:METER #: [id number] additional_comment: Cb igorgadj VBG PO2 27 mmHg [facility] Comment:METER #: [id number] additional_comment: Constantine ulrich VBG Base Excess -1.8 mmol/L [facility] Comment:METER #: [id number] additional_comment: Constantine ulrich VBG HCO3 26 22 - 26 mmol/L [facility] Comment:METER #: [id number] additional_comment: Constantine ulrich O2 Sat, Tej <30.0 % [facility] Comment:METER #: [id number] additional_comment: Constantine ulrich 11/13/2024 2:29 PM EST 11/13/2024 2:37 PM EST us Generic External Data Provider LAB BLOOD ORDERAB LES Final Result [facility] [address] [place] [phone] * XR Hip 2 or 3 Views Right (11/13/2024 1:57 PM EST) Anatomical Region Laterality Modality Lower Extremities, Hip Right Radiograp hic Imaging 11/13/2024 1:57 PM EST Narrative 11/13/2024 2:21 PM EST ? [facility] ?[address] ?[place] [address] ?XRay Report ? Signed ? Patient: Runions,Noble F ?MR#: [id number] ?? 412 ? : 1955 ?Acct:[id number] ? Age/Sex: 69 / M ?ADM Date: 02/10/25 ? Loc: HO.ED ? Attending : ? Ordering Physician: Rafael Longoria MD ?? Date of Service: 11/13/24 ?? Procedure(s): XR hip RT min 2V ?? Accession Number(s): [id number] ? cc: Kym Sebastian MD; Rafael Longoria [...] ??Albaro Avila MD ??11/13/2024 02:18 PM EST ? Dictated By: ?Albaro Avila MD ? Signed By: ?<Electronically signed by Albaro Avila MD in OV> ?11/13/24 1418 ? DD/ 1357 ? TD/TT: 11/13/24 1355 ? Digital Operations Analyst: ? Procedure Note Latoya, Abril - 11/13/2024 [place] [address] XRay Report Signed Patient: Noble Valencia FMR#: [id number] 412 : 1955cct:[id number] Age/Sex: 69 / MADM Date: 11/13/24 Loc: HO.ED Attending Dr: Ordering Physician: Rafael Longoria MD Date of Service: 11/13/24 Procedure(s): XR hip RT min 2V Accession Number(s): [id number] cc: Kym Sebastian MD; Rafael Longoria MD [...] by: Albaro Avila MD 11/13/2024 02:18 PM [facility] Dictated By: Albaro Avila MD Signed By: <Electronically signed by Albaro Avila MD in OV> 11/13/24 1418 DD/ 1357 TD/TT: 11/13/24 1355 Digital Operations Analyst: [facility] External Provider IMG XR PROCEDURES Final Result * XR Femur 2+ Views Left (11/13/2024 1:30 PM EST) Anatomical Region Laterality Modality Lower Extremities, Femur Left Radiogr aphic Imaging 11/13/2024 1:30 PM EST Narrative 11/13/2024 2:28 PM EST ? [facility] ?[address] ?[place], [place] [address] ?XRay Report ? Signed ? Patient: Annie,Noble F ?MR#: [id number] ?? 412 ? : 1955 ?Acct:[id number] ? Age/Sex: 69 / M ?ADM Date: 11/13/24 ? Loc: HO.ED ? Attending Dr: ? Ordering Physician: Rafael Longoria MD ?? Date of Service: 11/13/24 ?? Procedure(s): XR femur LT 2V ?? Accession Number(s): [id number] ? cc: Kym Sebastian MD; Rafael Longoria [...] 1424 ? DD/ 1330 ? TD/TT: 11/13/24 1355 ? Digital Operations Analyst: ? Procedure Note Donotvickyter, Image - 11/13/[address] [address] XRay Report Signed Patient: Noble Valencia FMR#: [id number] 412 : 6Acct:[id number] Age/Sex: 69 / MADM Date: 11/13/24 Loc: HO.ED Attending Dr: Ordering Physician: Rafael Longoria MD Date of Service: 11/13/24 Procedure(s): XR femur LT 2V Accession Number(s): [id number] cc: Kym Sebastian MD; Rafael Longoria MD [...] OV> 11/13/24 1424 DD/ 1330 TD/TT: 11/13/24 1350 Digital Operations Analyst: [facility] External Provider IMG XR PROCEDURES Final Result * XR Knee 1-2 Views Left (11/13/2024 12:24 PM EST) Anatomical Region Laterality Modality Lower Extremities, Knee Left Radiogra phic Imaging 11/13/2024 12:2 4 PM EST Narrative 11/13/2024 2:27 PM EST ? [facility] ?[address] ?[place] [address] ?XRay Report ? Signed ? Patient: Runions,Noble F ?MR#: [id number] ?? 412 ? : 1955 ?Acct:[id number] ? Age/Sex: 69 / M ?ADM Date: 11/13/24 ? Loc: HO.ED ? Attending Dr: ? Ordering Physician: Rafael Longoria MD ?? Date of Service: 11/13/24 ?? Procedure(s): XR knee LT 2V ?? Accession Number(s): [id number] ? cc: Kym Sebastian MD; Rafael Longoria [...] 1422 ? DD/ 1224 ? TD/TT: 11/13/24 [facility]5 ? Digital Operations Analyst: ? Procedure Note Donotdonnyinterpreter, Image - 11/13/[address] [address] XRay Report Signed Patient: Noble Valencia FMR#: [id number] 412 : 1955cct:[id number] Age/Sex: 69 / MADM Date: 11/13/24 Loc: HO.ED Attending Dr: Ordering Physician: Rafael Longoria MD Date of Service: 11/13/24 Procedure(s): XR knee LT 2V Accession Number(s): [id number] cc: Kym Sebastian MD; Rafael Longoria MD [...] by: Francisco Odell MD 11/13/2024 02:22 PM [facility] Dictated By: Francisco Odell MD Signed By: <Electronically signed by Francisco Odell MD in OV> 11/13/24 1422 DD/ 1224 TD/TT: 11/13/24 1355 Digital Operations Analyst: us [facility] External Provider IMG XR PROCEDURES Final Result * XR Pelvis 1-2 Views (11/13/2024 12:24 PM EST) Anatomical Region Laterality Modality Body, Pelvis Radiographic Acacia ging 11/13/2024 12:2 4 PM EST Narrative 11/13/2024 2:21 PM EST ? [facility] ?[address] ?[place] [address] ?XRay Report ? Signed ? Patient: Runions,Noble F ?MR#: [id number] ?? 412 ? : 1955 ?Acct:[id number] ? Age/Sex: 69 / M ?ADM Date: 11/13/24 ? Loc: HO.ED ? Attending Dr: ? Ordering Physician: Rafael Longoria MD ?? Date of Service: 11/13/24 ?? Procedure(s): XR pelvis 1-2V ?? Accession Number(s): [id number] ? cc: Kym Sebastian MD; Rafael Longoria [...] 1418 ? DD/ 1224 ? TD/TT: 11/13/24 6945 ? Digital Operations Analyst: ? Procedure Note Abril Klein - 11/13/2024 [place] [address] [place] [address] XRay Report Signed Patient: Noble Valencia FMR#: [id number] 412 : 6Acct:[id number] Age/Sex: 69 / MADM Date: 11/13/24 Loc: HO.ED Attending Dr: Ordering Physician: Rafael Longoria MD Date of Service: 11/13/24 Procedure(s): XR pelvis 1-2V Accession Number(s): [id number] cc: Kym Sebastian MD; Rafael Longoria MD [...] 11/13/24 1418 DD/ 1224 TD/TT: 11/13/24 1355 Digital Operations Analyst: [facility] External Provider IMG XR PROCEDURES Final Result * CTA Chest PE Protocal (11/13/2024 12:20 PM EST) Anatomical Region Laterality Modality Body, Chest Computed Tomogra phy 11/13/2024 12:2 0 PM EST Narrative 11/13/2024 4:34 PM EST ? [facility] ?[address] ?[place] [address] ? CT Scan Report ? Signed ? Patient: Runions,Noble F ?MR#: [id number] ?? 412 ? : 1955 ?Acct:[id number] ? Age/Sex: 69 / M ?ADM Date: 02/10/25 ? Loc: HO.ED ? Attending Dr: ? Ordering Physician: Rafael Longoria MD ?? Date of Service: 11/13/24 ?? Procedure(s): CT angio chest PE protocol ?? Accession Number(s): [id number] ? cc: Kym Sebastian MD; Rafael Longoria MD ? Report Number: ?? [id number]: Total DLP = ?0.00 mGy-cm ?? EXAMINATION: ?? CT ANGIOGRAM CHEST ? CLINICAL INFORMATION: ?? Hypoxia ? COMPARISON: ?? None available. ? TECHNIQUE: ?? Multiple axial images were obtained through the chest after the ?? administration of 50 mL of Omnipaque 350 intravenous contrast. ?? Extensive vascular post-processing including two-dimensional and ?? three-dimensional reformatted images were created and reviewed on an ?? independent workstation. ? This CT examination was performed using dose optimization techniques as ?? appropriate, variously including the following: ?? *Automated exposure control ?? *Adjustment of mA and/or kV according to patient size (this includes ?? techniques or standardized protocols for targeted exams where dose is ?? matched to indication/reason for exam; i.e. extremities or head) ?? *Use of iterative reconstruction technique ?? DLP: 1145 mGy/cm. ? FINDINGS: ?? Vascular: There is good opacification of pulmonary artery and its ?? branches . No intraluminal filling defect or narrowing seen. The ?? thoracic aorta is of normal caliber. There is a three-vessel branching ?? of the aortic arch with mild axis cortical calcifications through the ?? arch. There is no pericardial effusion. Mild coronary artery ?? calcifications are present. ? Nonvascular: There is diffuse centrilobular emphysema with multiple ?? ill-defined nodules left upper lobe, axial image 07/28, , ?? radicular nodular changes right upper lobe subpleural based axial image ?? 28/5. The largest ill-defined nodule left upper lobe measures 1 cm with ?? mild tenting of major fissure. Bibasilar compressive atelectasis is ?? noted. There is a large bulla in anterior segment right lower lobe. ?? There is focal dependent airspace consolidation/atelectasis right upper ?? lobe posterior segment no abnormal size mediastinal lymph nodes seen. ?? Central tracheal and bronchial airways widely patent. Thyroid lobes are ?? symmetrical and normal. Axilla is unremarkable. The chest wall is ?? unremarkable. ? Visualized liver and spleen, pancreas and adrenal glands are ?? unremarkable. ? CT/CT angio chest PE protocol ?? IMPRESSION: ? No evidence of PE. No evidence of aortic aneurysm. ? Diffuse centrilobular emphysema with dependent atelectasis in both lung ?? bases. There is a small area of airspace consolidation/atelectasis in ?? the dependent posterior segment right upper lobe. ? There are ill-defined nodules in the left upper lobe suspicious for ?? primary or metastatic lung lesion. The largest lesion measures 1 cm on ?? axial image . ? Fleischner guidelines were followed. ? Electronically signed by: ??Mariano Jovel MD ??11/13/2024 04:32 PM EST RP ? Dictated By: ?Mariano Jovel MD ? Signed By: ?<Electronically signed by Mariano Jovel MD in OV> ?11/13/24 1632 ? DD/ 1220 ? TD/TT: 11/13/24 1615 ? Digital Operations Analyst: MSM ? Procedure Note Abril Klein - 11/13/[address] [address] [address] Scan Report Signed Patient: Noble Valencia FMR#: [id number] 412 : 6Acct:[id number] Age/Sex: 69 / MADM Date: 11/13/24 Loc: HO.ED Attending Dr: Ordering Physician: Rafael Longoria MD Date of Service: 11/13/24 Procedure(s): CT angio chest PE protocol Accession Number(s): [id number] cc: Kym Sebastian MD; Rafael Longoria MD Report Number: [id number]: Total DLP = 0.00 mGy-cm EXAMINATION: CT ANGIOGRAM CHEST CLINICAL INFORMATION: Hypoxia COMPARISON: None available. TECHNIQUE: Multiple axial images were obtained through the chest after the administration of 50 mL of Omnipaque 350 intravenous contrast. Extensive vascular post-processing including two-dimensional and three-dimensional reformatted images were created and reviewed on an independent workstation. This CT examination was performed using dose optimization techniques as appropriate, variously including the following: *Automated exposure control *Adjustment of mA and/or kV according to patient size (this includes techniques or standardized protocols for targeted exams where dose is matched to indication/reason for exam; i.e. extremities or head) *Use of iterative reconstruction technique DLP: 1145 mGy/cm. FINDINGS: Vascular: There is good opacification of pulmonary artery and its branches . No intraluminal filling defect or narrowing seen. The thoracic aorta is of normal caliber. There is a three-vessel branching of the aortic arch with mild axis cortical calcifications through the arch. There is no pericardial effusion. Mild coronary artery calcifications are present. Nonvascular: There is diffuse centrilobular emphysema with multiple ill-defined nodules left upper lobe, axial image 10, /, radicular nodular changes right upper lobe subpleural based axial image 28/5. The largest ill-defined nodule left upper lobe measures 1 cm with mild tenting of major fissure. Bibasilar compressive atelectasis is noted. There is a large bulla in anterior segment right lower lobe. There is focal dependent airspace consolidation/atelectasis right upper lobe posterior segment no abnormal size mediastinal lymph nodes seen. Central tracheal and bronchial airways widely patent. Thyroid lobes are symmetrical and normal. Axilla is unremarkable. The chest wall is unremarkable. Visualized liver and spleen, pancreas and adrenal glands are unremarkable. CT/CT angio chest PE protocol IMPRESSION: No evidence of PE. No evidence of aortic aneurysm. Diffuse centrilobular emphysema with dependent atelectasis in both lung bases. There is a small area of airspace consolidation/atelectasis in the dependent posterior segment right upper lobe. There are ill-defined nodules in the left upper lobe suspicious for primary or metastatic lung lesion. The largest lesion measures 1 cm on axial image . Fleischner guidelines were followed. Electronically signed by: Mariano Jovel MD 11/13/2024 04:32 PM EST Dictated By: Mariano Jovel MD Signed By: <Electronically signed by Mariano Jovel MD in OV> 11/13/24 1632 DD/ 1220 TD/TT: 11/13/24 1615 Digital Operations Analyst: MSM us [facility] External Provider IMG CT PROCEDURES Final Result * CT Cervical Spine w/o Contrast (11/13/2024 12:20 PM EST) Anatomical Region Laterality Modality Spine, C-spine Computed Tomogra phy 11/13/2024 12:2 0 PM EST Narrative 11/13/2024 4:30 PM EST ? [facility] ?[address] ?[place], [place] [address] ? CT Scan Report ? Signed ? Patient: Noble Valencia ?MR#: [id number] ?? 412 ? : 1955 ?Acct:[id number] ? Age/Sex: 69 / M ?ADM Date: 11/13/24 ? Loc: HO.ED ? Attending Dr: ? Ordering Physician: Rafael Longoria MD ?? Date of Service: 11/13/24 ?? Procedure(s): CT cervical spine wo IV con ?? Accession Number(s): [id number] ? cc: Kym Sebastian MD; Rafael Longoria MD ? Report Number: ?? [id number]: Total DLP = 1145.00 mGy-cm ?? EXAMINATION: ?? CT CERVICAL SPINE WITHOUT CONTRAST ? CLINICAL INFORMATION: ?? Fall, head strike ? COMPARISON: ?? 04/12/2024. ? TECHNIQUE: ?? Spiral CT examination of the cervical spine performed in axial plane ?? without contrast. Multiplanar reformatted imaging constructed from the ?? axial data set. ? This CT examination was performed using dose optimization techniques as ?? appropriate, variously including the following: ?? *Automated exposure control ?? *Adjustment of mA and/or kV according to patient size (this includes ?? techniques or standardized protocols for targeted exams where dose is ?? matched to indication/reason for exam; i.e. extremities or head) ?? *Use of iterative reconstruction technique ? FINDINGS: ?? There is a minimal levoconvex scoliosis, apex at C3. Compensatory right ?? convex scoliosis of the cervicothoracic junction. ?? Old fracture of the dens, with mildly irregular healing and bony ?? fusion. Craniocervical junction intact otherwise. Moderate narrowing of ?? the central canal at the C1 level. ?? There is no acute fracture, evidence of traumatic subluxation, ?? compression deformity, or suspicious bone lesion. ? Severe degenerative disc changes noted C3-4 with sclerosis of the ?? endplates. Moderate changes noted C5-6. ?? There is normal facet alignment. There are multilevel bilateral ?? degenerative facet changes. ? Severe degenerative arthropathy both TM joints. ? No prevertebral soft tissue abnormality. ?? Lung apices demonstrate advanced emphysema, with interlobular septal ?? thickening consistent with CHF. ? CT/CT cervical spine wo IV con ?? IMPRESSION: ?? 1. No CT evidence of acute cervical spine fracture or injury. ?? 2. Exaggerated lordosis. Mild S-shaped scoliosis. ?? 3. Old fracture of the dens, with irregular healing resulting in ?? moderate central canal stenosis at C1 level. ?? 4. Degenerative spondylosis. ? Electronically signed by: ??Francisco Odell MD ??11/13/2024 04:27 PM EST RP ? Dictated By: ?Francisco Odell MD ? Signed By: ?<Electronically signed by Francisco Odell MD in OV> ?11/13/24 1627 ? DD/ 1220 ? TD/TT: 11/13/24 1615 ? Digital Operations Analyst: ? Procedure Note Abril Klein - 11/13/[address] [address] [address] Scan Report Signed Patient: Noble Valencia FMR#: [id number] : 6Acct:[id number] Age/Sex: 69 / MADM Date: 11/13/24 Loc: HO.ED Attending Dr: Ordering Physician: Rafael Longoria MD Date of Service: 11/13/24 Procedure(s): CT cervical spine wo IV con Accession Number(s): [id number] cc: Kym Sebastian MD; Rafael Longoria MD Report Number: [id number]: Total DLP = 1145.00 mGy-cm EXAMINATION: CT CERVICAL SPINE WITHOUT CONTRAST CLINICAL INFORMATION: Fall, head strike COMPARISON: 04/12/2024. TECHNIQUE: Spiral CT examination of the cervical spine performed in axial plane without contrast. Multiplanar reformatted imaging constructed from the axial data set. This CT examination was performed using dose optimization techniques as appropriate, variously including the following: *Automated exposure control *Adjustment of mA and/or kV according to patient size (this includes techniques or standardized protocols for targeted exams where dose is matched to indication/reason for exam; i.e. extremities or head) *Use of iterative reconstruction technique FINDINGS: There is a minimal levoconvex scoliosis, apex at C3. Compensatory right convex scoliosis of the cervicothoracic junction. Old fracture of the dens, with mildly irregular healing and bony fusion. Craniocervical junction intact otherwise. Moderate narrowing of the central canal at the C1 level. There is no acute fracture, evidence of traumatic subluxation, compression deformity, or suspicious bone lesion. Severe degenerative disc changes noted C3-4 with sclerosis of the endplates. Moderate changes noted C5-6. There is normal facet alignment. There are multilevel bilateral degenerative facet changes. Severe degenerative arthropathy both TM joints. No prevertebral soft tissue abnormality. Lung apices demonstrate advanced emphysema, with interlobular septal thickening consistent with CHF. CT/CT cervical spine wo IV con IMPRESSION: 1. No CT evidence of acute cervical spine fracture or injury. 2. Exaggerated lordosis. Mild S-shaped scoliosis. 3. Old fracture of the dens, with irregular healing resulting in moderate central canal stenosis at C1 level. 4. Degenerative spondylosis. Electronically signed by: Francisco Odell MD 11/13/2024 04:27 PM EST Dictated By: Francisco Odell MD Signed By: <Electronically signed by Francisco Odell MD in OV> 11/13/24 1627 DD/ 1220 TD/TT: 11/13/24 1615 Digital Operations Analyst: [facility] External Provider IMG CT PROCEDURES Final Result * CT Head w/o Contrast (11/13/2024 12:20 PM EST) Anatomical Region Laterality Modality Head, Neck Computed Tomogra phy 11/13/2024 12:2 0 PM EST Narrative 11/13/2024 4:28 PM EST ? [facility] ?[address] ?[place] [address] ? CT Scan Report ? Signed ? Patient: Runions,Noble F ?MR#: [id number] ?? 412 ? : 1955 ?Acct:[id number] ? Age/Sex: 69 / M ?ADM Date: 11/13/24 ? Loc: HO.ED ? Attending Dr: ? Ordering Physician: Rafael Longoria MD ?? Date of Service: 11/13/24 ?? Procedure(s): CT head/brain wo IV con ?? Accession Number(s): [id number] ? cc: Kym Sebastian MD; Rafael Longoria MD ? Report Number: ?? [id number]: Total DLP = ?0.00 mGy-cm ?? EXAMINATION: ?? CT HEAD WITHOUT CONTRAST ? CLINICAL INFORMATION: ?? Fall, head strike ? COMPARISON: ?? 04/12/2024 ? TECHNIQUE: ?? Contiguous axial imaging was performed from the skull base to vertex ?? without intravenous administration of contrast. ? This CT examination was performed using dose optimization techniques as ?? appropriate, variously including the following: ?? *Automated exposure control ?? *Adjustment of mA and/or kV according to patient size (this includes ?? techniques or standardized protocols for targeted exams where dose is ?? matched to indication/reason for exam; i.e. extremities or head) ?? *Use of iterative reconstruction technique ? FINDINGS: ?? There is no evidence of intracranial hemorrhage or extra-axial fluid ?? collection. ?? There is no mass effect, or edema. No CT evidence of acute territorial ?? infarct. ?? Ventricles, sulci, and cisterns are normal in size and configuration ?? for patient age. No hydrocephalus. No midline shift. ?? Negative hyperdense MCA sign. Negative insular ribbon sign. ? Mild periventricular and deep white matter hypoattenuation is ?? consistent with mild small vessel ischemic changes. ?? Normal pituitary. ?? Mild atheromatous calcification of the bilateral carotid siphons and V4 ?? segments vertebral arteries bilaterally. ? Globes and orbital contents image normally. There are bilateral lens ?? replacements. ?? No extracranial soft tissue abnormalities. ? The paranasal sinuses, mastoid air cells, and tympanic cavities are ?? normally aerated. ?? No suspicious bony abnormalities. There are no acute fractures evident. ?? Severe arthritic changes left greater than right TM joints. ? CT/CT head/brain wo IV con ?? IMPRESSION: ?? No acute intracranial abnormalities. No fracture evident. ? Electronically signed by: ??Francisco Odell MD ??11/13/2024 04:22 PM EST RP ? Dictated By: ?Francisco Odell MD ? Signed By: ?<Electronically signed by Francisco Odell MD in OV> ?11/13/24 1622 ? DD/ 1220 ? TD/TT: 11/13/24 1615 ? Digital Operations Analyst: ? Procedure Note Donotuseinterpreter, Image - 11/13/[address] [place] [address] [address] Scan Report Signed Patient: Noble Valencia FMR#: [id number] 412 : 1955cct:[id number] Age/Sex: 69 / MADM Date: 11/13/24 Loc: HO.ED Attending Dr: Ordering Physician: Rafael Longoria MD Date of Service: 11/13/24 Procedure(s): CT head/brain wo IV con Accession Number(s): [id number] cc: Kym Sebastian MD; Rafael Longoria MD Report Number: [id number]: Total DLP = 0.00 mGy-cm EXAMINATION: CT HEAD WITHOUT CONTRAST CLINICAL INFORMATION: Fall, head strike COMPARISON: 04/12/2024 TECHNIQUE: Contiguous axial imaging was performed from the skull base to vertex without intravenous administration of contrast. This CT examination was performed using dose optimization techniques as appropriate, variously including the following: *Automated exposure control *Adjustment of mA and/or kV according to patient size (this includes techniques or standardized protocols for targeted exams where dose is matched to indication/reason for exam; i.e. extremities or head) *Use of iterative reconstruction technique FINDINGS: There is no evidence of intracranial hemorrhage or extra-axial fluid collection. There is no mass effect, or edema. No CT evidence of acute territorial infarct. Ventricles, sulci, and cisterns are normal in size and configuration for patient age. No hydrocephalus. No midline shift. Negative hyperdense MCA sign. Negative insular ribbon sign. Mild periventricular and deep white matter hypoattenuation is consistent with mild small vessel ischemic changes. Normal pituitary. Mild atheromatous calcification of the bilateral carotid siphons and V4 segments vertebral arteries bilaterally. Globes and orbital contents image normally. There are bilateral lens replacements. No extracranial soft tissue abnormalities. The paranasal sinuses, mastoid air cells, and tympanic cavities are normally aerated. No suspicious bony abnormalities. There are no acute fractures evident. Severe arthritic changes left greater than right TM joints. CT/CT head/brain wo IV con IMPRESSION: No acute intracranial abnormalities. No fracture evident. Electronically signed by: Francisco Odell MD 11/13/2024 04:22 PM [facility] [place] Dictated By: Francisco Odell MD Signed By: <Electronically signed by Francisco Odell MD in OV> 11/13/24 1622 DD/ 1220 TD/TT: 11/13/24 1615 Digital Operations Analyst: [facility] External Provider IMG CT PROCEDURES Final Result documented in this encounter Visit Diagnoses Not on filedocumented in this encounter Care Teams Display Associate Relationship Specialty Start Date End Date Kym Sebastian MD [address] [place] [id number] PCP - General Family Medicine 08/02/12 Vish Mendosa 05/25/24 documented as of this encounter
--- OUTSIDE RECORDS SUMMARY | 2024-11-21 09:20 | XMS_ITS | Data Portability ---
Author Organization [facility] [employer] [facility], Main Office Address [address] [facility], [address] [place] [address] Care Team Providers Care Manager Sap Name Role Phone SHEEBA LIRA - 2ND FLOOR OTHER Assessment Encounter Date Assessment Date Assessment LastModified by Organization Details LastModified Time 04/04/2018 04/04/2018 04/03/18 WBC 10.3, Hgb 9.9, Hct 29.4, Na 138, K 4.3, BUN 15, Industrial Maintenance Manager 0.62, mag 1.7 in hospital [email or web address] Not available 04/04/2018 09:13:06 04/13/2018 04/13/2018 7: wbc 12.2, hgb 10.6, hct 32.4 glord Not available 04/13/2018 10:56:37 Plan of Treatment Reminders Order Date Submit Date Provider Last Modified By Organization Details Last Modified Time Details Appointments None record ed. Lab None record ed. Referral None record ed. Procedures None record ed. Surgeries None record ed. Imaging None record ed. Medication Orders None record ed. Patient TargetsNo targets recorded. Patient InstructionsNo instructions recorded. Reason for Referral None Reported. 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 Active 2017 ABUNDIO SHERMAN [address] [place] [address], [address], [place], [address], [facility] 8 08:51:28 Smoker 39446710 Active 2017 ABUNDIO SHERMAN [address] [facility], [address], [place], [address], [facility] 8 08:51:34 Closed fracture of left femur 250798410763 84283 Active 2017 bicondyla r fracture DIAMANTE SHERMAN[address], [address], [place], [address], [facility] 8 08:52:57 Ventricul ar tachycard ia 91335782 Active 2017 BRAIN GRIERCHINTANABUNDIO [address] [place] [address], [address], [place], [address], [facility] 8 08:53:17 Atrial fibrillat ion 24207903 Active 2017 BRAIN GRIERCHINTANABUNDIO [address] [place] [address], [address], [place], [address], [facility] 8 08:53:22 Acute exacerbat ion of chronic obstructi ve pulmonary disease 819747248 Active 2017 BRAIN STEVEABUNDIO [address] [place] [address], [address], [place], [address], [facility] 8 08:53:40 Iron deficienc y anemia 78513571 Active 2017 BRAIN STEVE ABUNDIO [address] [place] [address], [address], [place], [address], [facility] 8 08:53:52 Alcoholic hepatitis 285189256 Active 2017 BRAIN WILSON [employer] [address] [place] [address], [address], [place], [address], [facility] 8 08:54:07 Hypomagne semia 636307279 Active 2017 BRAIN WILSON [employer], [address], [place], [address], [facility] 8 09:30:19 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 Medical Equipment None Reported. Allergies No known drug allergies Vitals Date Recorded Body temperature Heart rate Respiratory rate Oxygen saturation Oxygen saturation in Arterial blood by Pulse oximetry Systolic blood pressure Diastolic blood pressure Provider Name and Address Organization Details Last Updated DateTime 8 98.5 [degF] 75 /min 18 /min 94 % 94 % 137 mm[Hg] 77 mm[Hg] ABUNDIO SHERMAN [address] [facility], [address], [place], [address], [facility] 8 08:50:12 Date Recorded Heart rate Body temperature Provider N andrez and Address Organization Details Last Updated DateTime 04/06/2018 81 /min 98 [degF] Rafael Loera MD [address] [facility], [address], [place], [address], [facility] 04/06/2018 12:38:33 Date Recorded Heart rate Body temperature Oxygen saturation Oxygen saturation in Arterial blood by Pulse oximetry Systolic blood pressure Diastolic blood pressure Provider Name and Address Organization Details Last Updated DateTime 8 80 /min 97.3 [degF] 92 % 92 % 106 mm[Hg] 60 mm[Hg] SHONDA LACY [address] [facility], [address], [place], [address], [facility] 8 10:34:40 Social History Question Answer Notes LastModified by Organizat ion Details LastModified Time Tobacco Smoking Status Current Every Day Smoker Not Available [facility] 07/30/2020 03:13:20 Do You Have An Advance Directive? Yes FULL CODE [id number] Information not available 07/30/2020 What Is Your Level Of Alcohol Consumption? Heavy At Least A Gallon Of Vodka A Day [id number] Information not available 07/30/2020 Do You Have A Medical Power Of Director Of Software Development? No [id number] Information not available 07/30/2020 What Was The Date Of Your Most Recent Tobacco Screening? 04/13/2018 [id number] Information not available 07/30/2020 How Much Tobacco Do You Smoke? 1 PPD [id number] Information not available 07/30/2020 Has Tobacco Cessation Counseling Been Provided? Yes [id number] Information not available 07/30/2020 On What Date Was Tobacco Cessation Counseling Provided? 04/13/2018 [id number] Information not available 07/30/2020 How Many Years Have You Smoked Tobacco? 20 [id number] Information not available 07/30/2020 Sex: Unknown Functional Status None recorded. Mental Status None recorded. Family History Nothing Reported. Medical History No medical history recorded. Past Encounters Encounter ID Performer Location Encounter Start Date Encounter Closed Date Diagnosis/Indication Diagnosis SNOMED-CT Code Diagnosis ICD10 Code Diagnosis Note [id number] ABUNDIO SHERMAN [address] [address] 04/04/2018 08:47:06 04/19/2018 16:22:33 Closed fracture of left femur 0631012326 4806742 S72.002D PT/OT eval and treatNWB LLE x 6 weekskeep knee brace on in extensiona quacel dsg to stay in placeloven ox 40 mg qd x 28 daysoxycod one 5 mg q 6 hrs prnfollow up with ortho in 2 weeks Atrial fibrillation 4943 6004 I48.2 metoprolol 75 mg bidrate controlnot on anticoagul ation except lovenox currentlyw ill need to decide after 28 dayshigh fall riskmonito r Iron defic iency anemia 46078549 D50.8 iron 325 mg qdmonitor labs Acute exac erbation of chronic obstructive pulmonary disease 523106350 J44.1 oxygen as neededspir mary 18 mcg qdmonitor respirator y status Smoker 29235224 F17.213 nicotine patch 14 mg qdmonitor Alcohol abuse 86493128 F 10.230 folic acid 1 mg qdthiamine 100 mg qdmonitor for withdrawal symptoms Coronary atherosclerosis 744515225 I25.10 atorvastat in 20 mg qdmetoprol ol 75 mg bidwas on ASA but on lovenox at presentmon itor Hypomagnesemia 202463347 E83.42 magnesium oxide 800 mg bidmonitor mag level [id number] Rafael Loera MD [facility] [address] [address] 04/06/2018 12:23:27 04/19/2018 17:40:17 Closed fracture of left femur 3674754860 7860464 S72.8X2A see HPIleft femur fractrure now s/p ORIFfollow ortho recsnon weight bearing x 6 weeks till cleared by orthoPT OT eval and treatmonit or for pain control and constipati onlovenox for DVT prophylaxi s Alcohol abuse 05094903 F 10.10 see abovefall secondary to intoxicati on per report Anemia due to blood loss 867219769 D50.0 monitor cbc and need for txtransfus ed with 2 units pre-op Primary thrombocytopenia 535825854 D69.49 most likely secondary to ETOHmonito r plts in pt on lovenox Atrial fibrillation 4943 6004 I48.0 currently rate controlled with metoprolol 75 mg bidnot candidate for full anticoagul ation due to ETOH and fall hxIf remains off etoh this is to be reassessed 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 will request cards eval notes Coronary atherosclerosis 227367336 I25.10 lipitor 20 mg qdcontinue Alcoholic hepatitis 2358 69986 F10.188 [place] [id number] Lynda Jas [facility] [address] [address] 04/09/2018 09:10:47 04/19/2018 18:06:53 Closed fracture of left femur 8010180184 6806344 S72.8X2A see HPIleft femur fracture now s/p ORIFfollow ortho recsnon weight bearing x 6 weeks till cleared by orthoRefus ing lovenox, will d/c and start xarelto 10 mg dailyF/u ortho as scheduledC ont. PT/OT Atrial fibrillation 4943 6004 I48.0 currently rate controlled with metoprolol 75 mg bidnot candidate for full anticoagul ation due to ETOH and fall hxwill start xarelto given hx of a. fib and refusing lovenox injections -will need to be re-evaled prior to d/c home if patient is to resume ETOH use [id number] SHONDA LACY [address] [address] 04/13/2018 10:33:25 04/19/2018 18:31:06 Alcohol abuse 04138846 F10.10 see abovefall secondary to intoxicati on per report Anemia due to blood loss 277406223 D50.0 monitor cbc and need for txtransfus ed with 2 units pre-oplabs stable as of 04/04, refuses further lab work Primary thrombocytopenia 347056444 D69.49 most likely secondary to ETOHPCP to follow Ischemic c ongestive cardiomyopathy 420223807 I25.5 ischemic cardiomyop athy most likely secondary to ETOHd/c summary mentions coreg however med list has metoprolol Coronary atherosclerosis 021954463 I25.10 lipitor 20 mg qdcontinue Alcoholic hepatitis 2358 28781 F10.188 monitor LFTsGI consult prn Closed fra cture of left femur 1228109293 6314057 S72.8X2A see HPIleft femur fracture now s/p ORIFfollow ortho recsnon weight bearing x 6 weeks till cleared by orthoConti nue xarelto 10 mg dailyF/u ortho as scheduledC ont. PT/OT with [facility] Atrial fibrillation 4943 6004 I48.0 currently rate controlled with metoprolol 75 mg bidnot candidate for full anticoagul ation due to ETOH and fall hxContinue on Xarelto 10 mg daily, pt reports he will not use alcohol when he returns homediscus sed the side effects and warnings of mixing alcohol with this medication and the possibilit y of increased bleeding with falls- verbalized understand ingVNA to monitor is alcohol use continues and PCP will manage xarelto Health Concerns Section Related Observation LastModified by Organization Detai ls LastModified Time None Recorded Concern Status LastModified by Organization Details LastModified Time None Recorded Advance Directives Directive Y: FULL CODE Payers Encounter Date Sequence Insurance Name Policy Number Policy Manzanares Covered Member ID Manzanares Member ID Guarantor Name 04/04/2018 1 [place] D[place] [id number] Noble Runions 04/06/2018 1 [place] Noble Runions [id number] Noble Runions 04/09/2018 1 [place] Noble Runions [id number] Noble Runions 04/13/2018 1 [place] [facility] Noble Runions [id number] Noble Runions Notes Date Note Type Note Provider Name and Address Organization Details Recorded Time 018 text/ht ml A 62 year old male being seen for a initial intake note. Patient presented to [facility] ER after drinking and fell on his left knee. He was having a great deal of pain later and the x-ray revealed a comminuted distal left femoral fracture with a large knee effusion. A temporary cast was placed on and pain control given. His blood alcohol was 342 so he was admitted under medicine due to fear of alcohol withdrawal while in hospital. He was taken to the OR on 03/30/[address] Yanez and a ORIF was performed. He has an extension brace and made non weight bearing for 6 weeks. He had post operative anemia which required 2 units of blood. He was found to have acute bronchitis and COPD exacerbation that was treated with prednisone and IV levofloxacin. He met sepsis criteria. Chest x-ray revealed pulmonary emphysema and worsening peribronchial interstitial thickening in both lungs. He had non sustained v-tach so his metoprolol was ultimately increased. Echo revealed a normal LVEF and mild to moderate pulmonary hypertension. He was also found to be in afib, rate controlled and should be on anticoagulation after but due to his drinking/falling it is thought that this may not be a good idea. He was placed on a phenobarbital taper and did not experience any nathan withdrawal. He declined social service in the hospital. He was sent here for rehab. Medical history of smoker, [place], etoh abuse, CAD with CABG, anemia, alcoholic hepatitis and afib. BRAIN WILSON, ABUNDIO [address] [facility], [address], [place], [address], [facility] 04/04/2018 09:45:52 018 text/ht ml Patient is a 62 yo male admit from hospital presenting after fall while intoxicated which resulted in left distal femur fracture. Underwent ORIF on 03/28 now with immobilizer in place. Non-weightbearing till cleared by ortho. In hospital patient became tachycardic with elevated temp, concern for sepsis secondary to possible pneumonia treated with levaquin [facility] signficant forciodetohhx V tacha fibthrombocytopeniaanemiatobacco usealcoholic hepatitis admit to facility for continued care and therapy Rafael Loera MD [address] [place] [address], [address], [place], [address], [facility] [employer] 04/06/2018 12:50:38 018 text/ht ml 62 yo male seen for acute rounding visit. Patient refused lovenox injection this morning. Patient states he does not want any needles and says he will continue to refuse this. Explain to patient the importance of anticoagulation following hip fracture and repair and patient states there must be a pill you can use. [facility] wilder marshall, ETOH abuse, cad. Lynda olvera, [facility] 04/09/2018 09:29:01 018 text/ht ml Patient is a 62 yo male admit from hospital presenting after fall while intoxicated which resulted in left distal femur fracture. Underwent ORIF on 03/28 now with immobilizer in place. Non-weightbearing till cleared by ortho. In hospital patient became tachycardic with elevated temp, concern for sepsis secondary to possible pneumonia treated with levaquin. Pt recently has been refusing all blood work and anything that requires injection. His last blood draw was on 04/04 showing an elevated white count but refuses to allow redraw. He also is refusing his lovenox injections and was started on xarelto, there is concern for his high risk of falls due to ETOH abuse and continuing this medication. Had conversation with patient about the possibility of infection somewhere in the body and the need to check his labs, he continues to refuse and states I feel that I am fine, I do not want to be stuck with any more needles . Patient also states that he will not resume drinking alcohol when he gets home so the xarelto should not be an issue. [facility] signficant forcopdetohhx V tacha fibthrombocytopeniaanemiatobacco usealcoholic hepatitis SHONDA LORD [address] [facility], [place], [address], [facility] 04/13/2018 10:56:59
--- OUTSIDE RECORDS SUMMARY | 2024-11-21 09:20 | XMS_ITS | Data Portability ---
Author Organization [facility], PAIN OFFICE Address [address] [facility] [place] [address] Assessment Encounter Date Assessment Date Assessment LastModified [...] Insurance issues. He has had injections at [facility] and has signed a release and [...] By Organization Details Last Modified Time 08/24/2016 [id number] He was advised against bedrest lasting longer than 4 days and to continue with activities as tolerated. The benefits of smoking cessation were reviewed with him. [email or web address] Not available 09/09/2016 14:17:28 Reason for Referral None Reported. Procedures Surgical History Date Name Laterality Status Provider Name and Address Organization Details Recorded Time 10/04/2012 CABG completed Nery Schmitz [facility] 08/24/2016 13:15:30 Imaging Results None [...] propionate 50 mcg/actuatio n nasal spray,suspen thor Griffith 1 spray every day by intranasal route. [...] /min 95 % 95 % 177.8 cm 43096.0 1 g 18.7 kg/m2 129 mm[Hg] 86 mm[Hg] Nery Davis [facility] 6 13:08:46 Social History Question Answer Notes LastModified by Organizat ion Details LastModified Time Tobacco Smoking Status Current Every Day Smoker Not Available [facility] 07/19/2020 03:16:10 What Is Your Level Of Alcohol Consumption? Moderate [id number] Information not available 07/19/2020 Are You Currently Employed? No [id number] Information not available 07/19/2020 Which Illicit Or Recreational Drugs Have You Used? No [id number] Information not available 07/19/2020 Education 12 Information no t available 08/24/2016 Live Alone Or With Others? Alone Information not available 08/24/2016 Marital Status Informatio n not available 08/24/2016 How Much Tobacco Do You Smoke? 1 PPD [id number] Information not available 07/19/2020 How Many Years Have You Smoked Tobacco? 45 [id number] Information not available 07/19/2020 Sex: Unknown Functional [...] SNOMED-CT Code Diagnosis ICD10 Code Diagnosis Note [id number] Moriah Bustillo MD PAIN OFFICE [address] [facility] [address] [place] [address] 08/24/2016 12:47:41 09/09/2016 15:25:13 Displacement of lumbar intervertebral disc without myelopathy 49001118 M51.26 Lumbosacra l radiculitis 20319769 M54.17 Spinal brionna nosis of lumbar region 30746537 M48.06 Health Concerns Section Related Observation LastModified by Organization Detai ls LastModified Time None Recorded Concern Status LastModified by Organization Details LastModified Time None Recorded Advance Directives Directive None Recorded Payers Encounter Date Sequence Insurance Name Policy Number Policy Manzanares Covered Member ID Manzanares Member ID Guarantor Name 08/24/2016 1 [place] [facility] Noble Valencia [id number] Noble Valencia Notes Date Note Type Note Provider Name and Address Organization Details Recorded Time 08/24/2016 text/html Pain Management L-spineReported bypatient.Location: Noble Valencia is a 61 year old [...] 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 Alleviating Factors:nothing helps Aggravating Factors:going from sit [...] He states he had injections done at [facility] which helped temporarily Previous PT:did not help Previous care specialist:did not help Moriah Bustillo MD [address] [place] [address] , [address], [place], [address], [place] [facility] 09/11/2016 12:09:41
--- OUTSIDE RECORDS SUMMARY | 2024-11-21 09:20 | XMS_ITS | Encounter Summary ---
Author Organization [employer] Address [address] [place] [address] Care Team Providers Care Driver Service Technician Name Role Phone Kym Sebastian MD Primary Care Provider [phone] Encounter Details Date Type Department Care Team (Late st Contact Info) Description 06/21/2023 Orders Only [facility] [address] [place] [address] Martina Mcgregor LPN Social History Tobacco Use [...] Blood Count 8.9 4.8 - 10.8 X10*3/uL [facility] Red Blood Count 4.10(L) 4.60 - 5.80 X10*6/uL [facility] Hemoglobin 14.1 14.0 - 18.0 g/dl [facility] Hematocrit 41.5(L) 42.0 - 52.0 % [facility] Mean Corpuscular Volume 101.2(H) 80.0 - 98.0 fL [facility] Mean Corpuscular Hemoglobin 34.4(H) 27.0 - 33.0 pg [facility] Mean Corpuscular HGB Conc 34.0 31.0 - 36.0 g/dl [facility] Red Cell Distribution Width 13.5 11.0 - 16.0 % [facility] Platelet Count 269 160 - 400 X10*3/uL [facility] Mean Platelet Volume 10.2 9.4 - 12.4 fL [facility] Neutrophils Percent Auto 69.9 45 - 73 % [facility] Imm Gran Pct Auto 0.4 0.0 - 0.4 % [facility] Lymphocytes Percent Auto 15.0(L) 20 - 40 % [facility] Monocytes Percent Auto 12.1(H) 2 - 11 % [facility] Eosinophils Percent Auto 1.5 0 - 4 % [facility] Basophils Percent Auto 1.1 0 - 2 % [facility] NRBC Pct Auto 0.0 0.0 - 0.2 /100WBC [facility] Neutrophils Absolute Auto 6.2 2.0 - 8.3 x10*3/uL [facility] Imm Gran Abs Auto 0.04(H) 0.00 - 0.03 X10*3/uL [facility] Lymphocytes Absolute Auto 1.3 1.2 - 4.9 X10*3/uL [facility] Monocytes Absolute Auto 1.1 0.1 - 1.2 X10*3/uL [facility] Eosinophils Absolute Auto 0.1 0.0 - 0.4 X10*3/uL [facility] Basophils Absolute Auto 0.1 0.0 - 0.2 X10*3/uL [facility] NRBC Abs Auto 0.000 0.0 - 0.012 X10*3/uL [facility] 10/22/2023 2:38 PM EST 10/22/2023 2:38 PM EST Generic External Data Provider LAB BLOOD ORDERAB LES Final Result Performing Organization Address [facility] Co de Phone Number [facility] [address] [place] [address] [phone] * (ABNORMAL) Digoxin (10/22/2023 2:38 PM EST) Pathologist [facility] Digoxin <0.2(L) 0.8 - 2.0 ng/mL [facility] Comment:Assay modified to mi nimize interference from aldosteroneantagonists (e.g. spironolactone and canrenone). 10/22/2023 2:38 PM EST 10/22/2023 2:38 PM EST [employer] External Data Provider LAB BLOOD ORDERAB LES Final Result Performing Organization Address [facility]/ZIP Co de Phone Number [facility] [address] [place] [address] [phone] * (ABNORMAL) Comprehensive Metabolic Panel (10/22/2023 2:38 PM EST) Pathologist [facility] Sodium 137 135 - 145 mmol/L [facility] Potassium 3.4 3.3 - 5.1 mmol/L [facility] Chloride 99 96 - 108 mmol/L [facility] Carbon Dioxide 25 22 - 29 mmol/L [facility] Anion Gap 16 12 - 20 [facility] Urea Nitrogen (BUN) 11 9 - 16 mg/dL [facility] Creatinine, Serum 0.84 0.5 - 1.4 mg/dL [facility] Estimated Glomerular Filt Rate >60 [facility] Comment:NOTE: For -Am erican individuals, multiply the result by 1.210.Chronic Kidney Disease: Estimated GFR < 60 mL/min/1.96v2Dtjqyi Kidney Disease: Estimated GFR < 15 mL/min/1.73m2 Glucose 87 60 - 115 mg/dL [facility] Calcium 9.5 8.4 - 10.2 mg/dL [facility] Bilirubin, Total 0.5 0.0 - 1.0 mg/dL [facility] Aspartate Amino Transferase 17 5 - 37 U/L [facility] Alanine Aminotransferase 8 0 - 40 U/L [facility] Total Protein 7.6 6.5 - 8.0 g/dL [facility] Albumin Level 4.2 3.5 - 5.0 g/dL [facility] Alkaline Phosphatase 149(H) 39 - 117 U/L [facility] 10/22/2023 2:38 PM EST 10/22/2023 2:38 PM EST us Generic External Data Provider LAB BLOOD ORDERAB LES Final Result Performing Organization Address City/State/[facility] Co de Phone Number [facility] [address] [place] [address] [phone] documented in this encounter Visit Diagnoses Not on filedocumented in this encounter Care Teams Driver Service Technician Relationship Specialty Start Date End Date Kym Sebastian MD [address] [place] [id number] PCP - General Family Medicine 08/02/12 Vish Mendosa 05/25/24 documented as of this encounter
--- OUTSIDE RECORDS SUMMARY | 2024-11-21 09:20 | XMS_ITS | Encounter Summary ---
Author Organization [employer] Address [address] [facility] [address] [place] [address] Care Team Providers Care Science Tutor Name Role Phone Kym Sebastian MD Primary Care Provider [phone] Reason for Visit * Reason Comments Med Refill Encounter Details Date Type Department Care Team ([facility] st Contact Info) Description 01/07/2024 Refill [facility] [address] [place], [place] [phone] Kym Sebastian MD [address] [place] [address] Social History Tobacco Use Types Packs/Day Years [...] on filedocumented in this encounter Care Teams Science Tutor Relationship Specialty Start Date End Date Kym Sebastian MD [address] [place] [id number] PCP - General Family Medicine 08/02/12 Vish Mendosa 05/25/24 documented as of this encounter
--- OUTSIDE RECORDS SUMMARY | 2024-11-21 09:20 | XMS_ITS | Encounter Summary ---
Author Organization [employer] Address [address] [facility] [address] [place] [address] Care Team Providers Care Spanish Speaking Babysitter Name Role Phone Kmy Sebastian MD Primary Care Provider [phone] Reason for Visit * Reason Onset Date Comments Appointment Request 06/29/2024 Encounter Details Date Type Department Care Team ([facility] Contact Info) Description 06/29/2024 Telephone [facility] [address] [place] [address] Kym Sebastian MD [address] [place] [address] Appointment Request Social History Tobacco Use Types [...] and left message requesting call back to [facility] RN upon receipt of message. A no show letter was sent. TC returned to [facility] to determine if they have any other contact number for him and they do not. They report currently seeing pt. For fpc services. Reviewed pt. Archives and pt. Last seen March 2022. Please advise if home care orders can be signed for Vish Mendosa * Telephone Encounter - Carmine Christian - 06/29/2024 3:01 PM EDT Tc from [employer] with Vish mendosa was requesting home care orders to be signed but was informed pcpis unable to sign home care orders due to pt not being seen in roughly a year. [facility] is requesting pt have a telephone visit and see what can be done to have home care orders signed. If any questions you can contact [facility] [phone]. documented in this encounter Plan of Treatment Not on file documented as of this encounter Visit Diagnoses Not on filedocumented in this encounter Care Teams Spanish Speaking Babysitter Relationship Specialty Start Date End Date Kym Sebastian MD [address] [place] [id number] PCP - General Family Medicine 08/02/12 Vish Mendosa 05/25/24 documented as of this encounter
--- OUTSIDE RECORDS SUMMARY | 2024-11-21 09:21 | XMS_ITS | Encounter Summary ---
Author Organization [employer] Address [address] [facility] [address] [place] [address] Care Team Providers Care Wind Turbine Erector Name Role Phone Kym Sebastian MD Primary Care Provider [phone] Reason for Visit * Reason Comments Med Change Request Encounter Details Date Type Department Care Team ([facility] Contact Info) Description 08/02/2024 Refill [facility] & [facility]EDS [address] [place], [place] [phone] Kym Sebastian MD [address] [place] [address] Chronic obstructive pulmonary disease, unspecified COPD type [...] t he electric, gas, oil or water [employer] threatened to shut off services in your [...] (CMS/HCC) documented in this encounter Care Teams Wind Turbine Erector Relationship Specialty Start Date End Date Kym Sebastian MD [address] [place] [id number] PCP - General Family Medicine 08/02/12 Vish Mendosa 05/25/24 documented as of this encounter
--- OUTSIDE RECORDS SUMMARY | 2024-11-21 09:21 | XMS_ITS | Clinical Summary ---
Author Organization [employer] Address [address] [facility] [address] [place] [address] Care Team Providers Care Aluminizer Name Role Phone Kym Sebastian MD Primary Care Provider [phone] Allergies No known active allergies Medications albuterol [...] Encounters Date Type Department Care Team Description 11/21/2024 Orders Only GENERIC EXTERNAL DATA DEPARTMENT Provider, Generic External Data 11/13/2024 Orders Only [facility] External Provider, [facility] 10/10/2024 Telephone [facility] [address] [place] [address] Kym Sebastian MD Med Refill 10/09/2024 11:15 AM EST Office Visit [facility] [address] [place], [place] [phone] Kym Sebastian MD Chronic obstructive pulmonary disease, unspecified COPD type (CMS/HCC) (Primary Dx); Ischemic congestive cardiomyopathy (CMS/HCC); Alcoholic hepatitis without ascites; Protein-calorie malnutrition, unspecified severity (CMS/HCC) 10/09/2024 Travel 10/06/2024 Telephone [facility]S [address] [place] [address] Kym Sebastian MD Chart Prep from Last [...] Associated Diagnosis Comments VENOUS BLOOD GAS Routine 11/21/2024 8:46 AM EST B TYPE NATRIURETIC PEPTIDE (BNP) Routine 11/21/2024 8:38 AM EST CBC WITH AUTO DIFFERENTIAL Routine 11/21/2024 8:[address] KNEE WO CONTRAST LEFT Routine 11/15/2024 2:59 PM EST LACTIC ACID Routine 11/13/2024 5:25 PM EST DRUG MONITOR, PANEL 1, SCREEN, URINE Routine 11/13/2024 5:13 PM EST URINALYSIS, COMPLETE, WITH REFLEX TO CULTURE Routine 11/13/2024 5:13 PM EST VENOUS BLOOD GAS Routine 11/13/2024 5:00 PM EST VENOUS BLOOD GAS Routine 11/13/2024 2:29 PM EST XR HIP 2 OR 3 VIEWS RIGHT Routine 11/13/2024 1:57 PM EST XR FEMUR 2+ VIEWS LEFT Routine 11/13/2024 1:30 PM EST XR KNEE 1-2 VIEWS LEFT Routine 11/13/2024 12:24 PM EST XR PELVIS 1-2 VIEWS Routine 11/13/2024 1 2:24 PM EST CTA CHEST PE PROTOCAL Routine 11/13/2024 12:[address] CERVICAL SPINE WO CONTRAST Routine 11/13/2024 12:[address] HEAD WO CONTRAST Routine 11/13/2024 1 2:20 PM EST LIPID PANEL, STANDARD Routine 04/02/2022 9:19 AM EDT from Last 3 Months or Most Recently Relevant to Health Maintenance Results * VENOUS BLOOD GAS (11/21/2024 8:46 AM EST) Only the most recent of3 resultswithin the time period is included. [facility] VBG pH 7.43 7.32 - 7.43 [facility] Comment:METER #: [id number] additional_comment: Cb olliea VBG PCO2 39 mmHg [facility] Comment:METER #: [id number] additional_comment: Cb bonaa VBG PO2 34 mmHg [facility] Comment:METER #: [id number] additional_comment: Cb olliea VBG Base Excess 2.1 mmol/L [facility] Comment:METER #: [id number] additional_comment: Cb olliea VBG HCO3 26 22 - 26 mmol/L [facility] Comment:METER #: [id number] additional_comment: Constantine cortez O2 Sat, Tej 54.0 % [facility] Comment:METER #: [id number] additional_comment: Constantine cortez 11/21/2024 8:46 AM EST 11/21/2024 8:52 AM EST us Generic External Data Provider LAB BLOOD ORDERAB LES Final Result [facility] [address] [place] [address] [phone] * (ABNORMAL) CBC auto differential (11/21/2024 8:38 AM EST) [facility] White Blood Count 11.8(H) 4.8 - 10.8 X10*3/uL [facility] Red Blood Count 4.28(L) 4.60 - 5.80 X10*6/uL [facility] Hemoglobin 13.2(L) 14.0 - 18.0 g/dl [facility] Hematocrit 40.8(L) 42.0 - 52.0 % [facility] Mean Corpuscular Volume 95.3 80.0 - 98.0 fL [facility] Mean Corpuscular Hemoglobin 30.8 27.0 - 33.0 pg [facility] Mean Corpuscular HGB Conc 32.4 31.0 - 36.0 g/dl [facility] Red Cell Distribution Width 18.1(H) 11.0 - 16.0 % [facility] Platelet Count 270 160 - 400 X10*3/uL [facility] Mean Platelet Volume 10.5 9.4 - 12.4 fL [facility] Neutrophils Percent Auto 82.0(H) 45 - 73 % [facility] Imm Gran Pct Auto 2.1(H) 0.0 - 0.4 % [facility] Lymphocytes Percent Auto 4.5(L) 20 - 40 % [facility] Monocytes Percent Auto 11.1(H) 2 - 11 % [facility] Eosinophils Percent Auto 0.1 0 - 4 % [facility] Basophils Percent Auto 0.2 0 - 2 % [facility] NRBC Pct Auto 0.0 0.0 - 0.2 /100WBC [facility] Neutrophils Absolute Auto 9.7(H) 2.0 - 8.3 x10*3/uL [facility] Imm Gran Abs Auto 0.25(H) 0.00 - 0.03 X10*3/uL [facility] Lymphocytes Absolute Auto 0.5(L) 1.2 - 4.9 X10*3/uL [facility] Monocytes Absolute Auto 1.3(H) 0.1 - 1.2 X10*3/uL [facility] Eosinophils Absolute Auto 0.0 0.0 - 0.4 X10*3/uL [facility] Basophils Absolute Auto 0.0 0.0 - 0.2 X10*3/uL [facility] NRBC Abs Auto 0.000 0.0 - 0.012 X10*3/uL [facility] 11/21/2024 8:38 AM EST 11/21/2024 8:47 AM EST us Generic External Data Provider LAB BLOOD ORDERAB LES Final Result Performing Organization Address [facility] Co de Phone Number [facility] [address] [place] [address] [phone] * (ABNORMAL) B Type Natriuretic Peptide (BNP) (11/21/2024 8:38 AM EST) B Type Natriuretic Peptide 1,022(H) <100 pg/mL [facility] Comment:For those patients w ho are being treated with Natrecor(nesiritide, recombinant BNP), BNP testing should beperformed at least two hours post treatment in order toensure that only endogenous levels of BNP are detected. 11/21/2024 8:38 AM EST 11/21/2024 8:47 AM EST us Generic External Data Provider LAB BLOOD ORDERAB LES Final Result Performing Organization Address [facility] Co de Phone Number [facility] [address] [place] [address] [phone] * CT Kne w/o Contrast Left (11/15/2024 2:59 PM EST) Anatomical Region Laterality Modality Lower Extremities, Knee Left Computed Tomography 11/15/2024 2:59 PM EST Narrative 11/15/2024 3:02 PM EST ? [facility] ?[address] ?[place] [address] ? CT Scan Report ? Signed ? Patient: Runions,Noble F ?MR#: [id number] ?? 412 ? : 1955 ?Acct:[id number] ? Age/Sex: 69 / M ?ADM Date: 02/10/25 ? Loc: HO.IMC ?450-1 ? Attending Dr: Anibal White MD ? Ordering Physician: Anibal White MD ?? Date of Service: 11/15/24 ?? Procedure(s): CT knee LT wo IV con ?? Accession Number(s): [id number] ? cc: Anibal White MD; Kym Sebastian MD ? Report Number: ?? [id number]: Total DLP = ??196.00 mGy-cm ? CLINICAL HISTORY: pain, fall ? 3 views left knee ? Comparison: CR/ND/SR - XR KNEE LT 2V - 11/13/24 [...] in OV> ? 11/15/24 1501 ? DD/ 58 ? TD/TT: 11/15/241458 ? [employer]: ? Procedure Note Abril Klein - 11/15/[address] [address] [address] Scan Report Signed Patient: Noble Valencia R#: [id number] 412 : 6Acct:[id number] Age/Sex: 69 / MADM Date: 11/13/24 Loc: [facility] 450-[address]: Anibal White MD Ordering Physician: Anibal White MD Date of Service: 11/15/24 Procedure(s): CT knee LT wo IV con Accession Number(s): [id number] cc: Anibal White MD; Kym Sebastian MD Report Number: [id number]: Total DLP = 196.00 mGy-cm CLINICAL HISTORY: pain, fall 3 views left knee Comparison: CR/ND/SR - XR KNEE LT 2V - 11/13/24 [...] OV> 11/15/24 1501 DD/ 1459 TD/TT: 11/15/24 145 [employer]: [facility] External Provider IMG CT PROCEDURES Final Result * (ABNORMAL) Lactic Acid (11/13/2024 5:25 PM EST) Lactic Acid 6.4(HH) 0.5 - 2.0 mmol/L [facility] Comment:Critical value for t est(s): LACTA Results called to keyanna back by: SYD Person calling: KULWINDERSmarter Agent Mobile Date: 11/13/24Time: 1848 11/13/2024 5:25 PM EST 11/13/2024 5:30 PM EST Generic External Data Provider LAB BLOOD ORDERAB LES Final Result [facility] [address] [place] [phone] * (ABNORMAL) Urinalysis, Complete, with Reflex to Culture (11/13/2024 5:13 PM EST) Color Urine Yellow [facility] Appearance Urine Cloudy [facility] PH 5.0 5.0 - 9.0 [facility] Glucose Urine UA Negative Negative mg/dL [facility] Urine Blood Trace(A) Negative [facility] Specific [place] - Urine 1.015 1.005 - 1.025 [facility] Urine Protein Negative Neg-Trace mg/dL [facility] Urine Ketones Negative Negative mg/dL [facility] Nitrite Urine Negative Negative [facility] Leukocyte Esterase Urine Moderate (2+)(A) Negative [facility] RBC Urine 3-5(A) 0 - 2 /HPF [facility] Urine WBC >50(A) 0 - 5 /HPF [facility] Urine Squamous Epithelial Cell 0-2 0 - 2 /HPF [facility] Urine Bacteria None Seen None Seen [facility] Hyaline Casts, Urine 0-2 0 - 2 /LPF [facility] 11/13/2024 5:13 PM EST 11/13/2024 5:30 PM EST Narrative [facility] - 11/13/2024 5:39 PM EST Urine, Clean Catch us Generic External Data Provider LAB URINE ORDERAB LES Final Result [facility] [address] [place] [phone] * (ABNORMAL) Drug Monitoring, Panel 1, Screen, Urine (11/13/2024 5:13 PM EST) Opiate Screen Urine Not Detected Not Detect [facility] Comment:Opiate cut-off is 30 0 ng/mL.Positive results are unconfirmed and should not be used fornon-medical purposes. Barbiturates, Urine Not Detected Not Detect [facility] Comment:Barbiturate cut-off is 200 ng/mL.Positive results are unconfirmed and should not be used fornon-medical purposes. Phencyclidine Screen Urine Not Detected Not Detect [facility] Comment:Phencyclidine cut-of f is 25 ng/mL.Positive results are unconfirmed and should not be used fornon-medical purposes. Amphetamine Screen Urine Not Detected Not Detect [facility] Comment:Amphetamine cut-off is 1000 ng/mL.Positive results are unconfirmed and should not be used fornon-medical purposes. Benzodiazepines Screen Urine Not Detected Not Detect [facility] Comment:Benzodiazepine cut-o ff is 200 ng/mL.Positive results are unconfirmed and should not be used fornon-medical purposes. Cocaine Screen Urine Not Detected Not Detect [facility] Comment:Cocaine cut-off is 3 00 ng/mL.Positive results are unconfirmed and should not be used fornon-medical purposes. Cannabinoid Screen Urine Not Detected Not Detect [facility] Comment:Cannabinoid cut-off is 50 ng/mL.Positive results are unconfirmed and should not be used fornon-medical purposes. Methadone Screen, Urine Not Detected Not Detect ng/mL [facility] Comment:Methadone cut-off is 300 ng/mL.Positive results are unconfirmed and should not be used fornon-medical purposes. FENTANYL URINE POSITIVE(A) Not Detect [facility] Comment:Fentanyl cut-off is 1 ng/mL.Positive results are unconfirmed and should not be used fornon-medical purposes. Oxycodone Urine Screen Not Detected Not Detect ng/mL [facility] Comment:Oxycodone cut-off is 100 ng/mL.Positive results are unconfirmed and should not be used fornon-medical purposes. Buprenorphine Screen Not Detected Not Detect ng/mL [facility] Comment:Buprenorphine cut-of f is 5 ng/mL.Positive results are unconfirmed and should not be used fornon-medical purposes. 11/13/2024 5:13 PM EST 11/13/2024 5:30 PM EST us Generic External Data Provider LAB URINE ORDERAB LES Final Result [facility] [address] [place] [phone] * XR Hip 2 or 3 Views Right (11/13/2024 1:57 PM EST) Anatomical Region Laterality Modality Lower Extremities, Hip Right Radiograp hic Imaging 11/13/2024 1:5 7 PM EST Narrative 11/13/2024 2:21 PM EST ? [facility] ?[address] ?[place] [address] ?XRay Report ? Signed ? Patient: Runions,Noble F ?MR#: [id number] ?? 412 ? : 1955 ?Acct:[id number] ? Age/Sex: 69 / M ?ADM Date: 11/13/24 ? Loc: HO.ED ? Attending Dr: ? Ordering Physician: Rafael Longoria MD ?? Date of Service: 11/13/24 ?? Procedure(s): XR hip RT min 2V ?? Accession Number(s): [id number] ? cc: Kym Sebastian MD; Rafael Longoria [...] DD/ 1357 ? TD/TT: 11/13/24 1355 ? [employer]: ? Procedure Note Abril Klein - 11/13/[address] [address] XRay Report Signed Patient: Noble Valencia FMR#: [id number] 412 : 6Acct:[id number] Age/Sex: 69 / MADM Date: 11/13/24 Loc: HO.ED Attending Dr: Ordering Physician: Rafael Longoria MD Date of Service: 11/13/24 Procedure(s): XR hip RT min 2V Accession Number(s): [id number] cc: Kym Sebastian MD; Rafael Longoria MD [...] Albaro Avila MD 11/13/2024 02:18 PM EST RP Dictated By: Albaro Avila MD Signed By: <Electronically signed by Albaro Avila MD in OV> 11/13/24 1418 DD/ 1357 TD/TT: 11/13/24 1355 [employer]: [facility] External Provider IMG XR PROCEDURES Final Result * XR Femur 2+ Views Left (11/13/2024 1:30 PM EST) Anatomical Region Laterality Modality Lower Extremities, Femur Left Radiogr aphic Imaging 11/13/2024 1:30 PM EST Narrative 11/13/2024 2:28 PM EST ? [facility] ?[address] ?[place] [address] ?XRay Report ? Signed ? Patient: Runions,Noble F ?MR#: [id number] ?? 412 ? : 1955 ?Acct:[id number] ? Age/Sex: 69 / M ?ADM Date: // ? Loc: HO.ED ? Attending Dr: ? Ordering Physician: Rafael Longoria MD ?? Date of Service: 02/10/25 ?? Procedure(s): XR femur LT 2V ?? Accession Number(s): [id number] ? cc: Kym Sebastian MD; Rafael Longoria [...] DD/ 1330 ? TD/TT: 11/13/24 1355 ? [employer]: ? Procedure Note Abril Klein - 11/13/[address] [address] XRay Report Signed Patient: Noble Valencia FMR#: [id number] 412 : 1955cct:[id number] Age/Sex: 69 / MADM Date: 11/13/24 Loc: HO.ED Attending Dr: Ordering Physician: Rafael Longoria MD Date of Service: 11/13/24 Procedure(s): XR femur LT 2V Accession Number(s): [id number] cc: Kym Sebastian MD; Rafael Longoria MD [...] Francisco Odell MD 11/13/2024 02:24 PM EST RP Dictated By: Francisco Odell MD Signed By: <Electronically signed by Francisco Odell MD in OV> 11/13/24 1424 DD/ 1330 TD/TT: 11/13/24 1355 [employer]: [facility] External Provider IMG XR PROCEDURES Final Result * XR Pelvis 1-2 Views (11/13/2024 12:24 PM EST) Anatomical Region Laterality Modality Body, Pelvis Radiographic Acacia ging 11/13/2024 12:2 4 PM EST Narrative 11/13/2024 2:21 PM EST ? [facility] ?[address] ?[place] [address] ?XRay Report ? Signed ? Patient: Noble Valencia ?MR#: [id number] ?? 412 ? : 1955 ?Acct:[id number] ? Age/Sex: 69 / M ?ADM Date: 11/13/24 ? Loc: HO.ED ? Attending Dr: ? Ordering Physician: Rafael Longoria MD ?? Date of Service: 11/13/24 ?? Procedure(s): XR pelvis 1-2V ?? Accession Number(s): [id number] ? cc: Kym Sebastian MD; Rafael Longoria [...] DD/ 1224 ? TD/TT: 11/13/24 1355 ? [employer]: ? Procedure Note Latoya, Image - 11/13/[address] [address] XRay Report Signed Patient: Noble Valencia FMR#: [id number] 412 : 6Acct:[id number] Age/Sex: 69 / MADM Date: 11/13/24 Loc: HO.ED Attending Dr: Ordering Physician: Rafael Longoria MD Date of Service: 11/13/24 Procedure(s): XR pelvis 1-2V Accession Number(s): [id number] cc: Kym Sebastian MD; Rafael Longoria MD [...] 11/13/24 1418 DD/ 1224 TD/TT: 11/13/24 1355 [employer]: [facility] External Provider IMG XR PROCEDURES Final Result * XR Knee 1-2 Views Left (11/13/2024 12:24 PM EST) Anatomical Region Laterality Modality Lower Extremities, Knee Left Radiogra phic Imaging 11/13/2024 12:2 4 PM EST Narrative 11/13/2024 2:27 PM EST ? [facility] ?[address] ?[place] [address] ?XRay Report ? Signed ? Patient: Runions,Noble F ?MR#: [id number] ?? 412 ? : 1955 ?Acct:[id number] ? Age/Sex: 69 / M ?ADM Date: 11/13/24 ? Loc: HO.ED ? Attending Dr: ? Ordering Physician: Rafael Longoria MD ?? Date of Service: 11/13/24 ?? Procedure(s): XR knee LT 2V ?? Accession Number(s): [id number] ? cc: Kym Sebastian MD; Rafael Longoria [...] 1422 ? DD/ 1224 ? TD/TT: 11/13/24 [facility]5 ? [employer]: ? Procedure Note Donotuseinterpreter, Image - 11/13/[address] [address] XRay Report Signed Patient: Noble Valencia FMR#: [id number] 412 : 1955cct:[id number] Age/Sex: 69 / MADM Date: 11/13/24 Loc: HO.ED Attending Dr: Ordering Physician: Rafael Longoria MD Date of Service: 11/13/24 Procedure(s): XR knee LT 2V Accession Number(s): [id number] cc: Kym Sebastian MD; Rafael Longoria MD [...] by: Francisco Odell MD 11/13/2024 02:22 PM [facility] Dictated By: Francisco Odell MD Signed By: <Electronically signed by Francisco Odell MD in OV> 11/13/24 1422 DD/ 1224 TD/TT: 11/13/24 1355 [employer]: us [facility] External Provider IMG XR PROCEDURES Final Result * CTA Chest PE Protocal (11/13/2024 12:20 PM EST) Anatomical Region Laterality Modality Body, Chest Computed Tomogra phy 11/13/2024 12:2 0 PM EST Narrative 11/13/2024 4:34 PM EST ? [facility] ?[address] ?[place] [address] ? CT Scan Report ? Signed ? Patient: Runions,Noble F ?MR#: [id number] ?? 412 ? : 1955 ?Acct:[id number] ? Age/Sex: 69 / M ?ADM Date: 11/13/24 ? Loc: HO.ED ? Attending Dr: ? Ordering Physician: Rafael Longoria MD ?? Date of Service: 11/13/24 ?? Procedure(s): CT angio chest PE protocol ?? Accession Number(s): [id number] ? cc: Kym Sebastian MD; Rafael Longoria MD ? Report Number: ?? [id number]: Total DLP = ?0.00 mGy-cm ?? EXAMINATION: [...] upper lobe subpleural based axial image ?? 28/02. The largest ill-defined nodule left upper lobe [...] 04:32 PM EST RP ? Dictated By: ?Becka,Mariano S MD ? Signed By: ?<Electronically signed by Mariano S Becka, MD in OV> ?11/13/24 1632 ? DD/ 1220 ? TD/TT: 11/13/24 1615 ? [employer]: MSM ? Procedure Note Abril Klein - 11/13/2024 [facility] [address] [facility] [place] [address] CT Scan Report Signed Patient: Noble Valencia FMR#: [id number] 412 : 6Acct:[id number] Age/Sex: 69 / MADM Date: 11/13/24 Loc: HO.ED Attending Dr: Ordering Physician: Rafael Longoria MD Date of Service: 11/13/24 Procedure(s): CT angio chest PE protocol Accession Number(s): [id number] cc: Kym Sebastian MD; Rafael Longoria MD Report Number: [id number]: Total DLP = 0.00 mGy-cm EXAMINATION: CT [...] left upper lobe, axial image 07/28, , radicular nodular changes right upper lobe subpleural based axial image /. The largest ill-defined nodule left upper lobe [...] 11/13/24 1632 DD/ 1220 TD/TT: 11/13/24 1615 [employer]: PAIGE [facility] External Provider IMG CT PROCEDURES Final Result * CT Cervical Spine w/o Contrast (11/13/2024 12:20 PM EST) Anatomical Region Laterality Modality Spine, C-spine Computed Tomogra phy 11/13/2024 12:2 0 PM EST Narrative 11/13/2024 4:30 PM EST ? [facility] ?[address] ?[place] [address] ? CT Scan Report ? Signed ? Patient: Runions,Noble F ?MR#: [id number] ?? 412 ? : 1955 ?Acct:[id number] ? Age/Sex: 69 / M ?ADM Date: 11/13/24 ? Loc: HO.ED ? Attending Dr: ? Ordering Physician: Rafael Longoria MD ?? Date of Service: 11/13/24 ?? Procedure(s): CT cervical spine wo IV con ?? Accession Number(s): [id number] ? cc: Kym Sebastian MD; Rafael Longoria MD ? Report Number: ?? [id number]: Total DLP = 1145.00 mGy-cm ?? EXAMINATION: [...] DD/ 1220 ? TD/TT: 11/13/24 1615 ? [employer]: ? Procedure Note Donotuseinterpreter, Image - 11/13/[address] [address] CT Scan Report Signed Patient: Noble Valencia FMR#: [id number] 412 : 6Acct:[id number] Age/Sex: 69 / MADM Date: 11/13/24 Loc: HO.ED Attending Dr: Ordering Physician: Rafael Longoria MD Date of Service: 11/13/24 Procedure(s): CT cervical spine wo IV con Accession Number(s): [id number] cc: Kym Sebastian MD; Rafael Longoria MD Report Number: [id number]: Total DLP = 1145.00 mGy-cm EXAMINATION: CT [...] 11/13/24 1627 DD/ 1220 TD/TT: 11/13/24 1615 [employer]: [facility] External Provider IMG CT PROCEDURES Final Result * CT Head w/o Contrast (11/13/2024 12:20 PM EST) Anatomical Region Laterality Modality Head, Neck Computed Tomogra phy 11/13/2024 12:2 0 PM EST Narrative 11/13/2024 4:28 PM EST ? [facility] ?[address] ?[place] [address] ? CT Scan Report ? Signed ? Patient: Noble Valencia ?MR#: [id number] ?? 412 ? : 1955 ?Acct:[id number] ? Age/Sex: 69 / M ?ADM Date: 11/13/24 ? Loc: HO.ED ? Attending Dr: ? Ordering Physician: Rafael Longoria MD ?? Date of Service: 11/13/24 ?? Procedure(s): CT head/brain wo IV con ?? Accession Number(s): [id number] ? cc: Kym Sebastian MD; Rafael Longoria MD ? Report Number: ?? [id number]: Total DLP = ?0.00 mGy-cm ?? EXAMINATION: [...] DD/ 1220 ? TD/TT: 11/13/24 1615 ? [employer]: ? Procedure Note Abril Klein - 11/13/[address] [address] CT Scan Report Signed Patient: Noble Valencia FMR#: [id number] 412 : 6Acct:[id number] Age/Sex: 69 / MADM Date: 11/13/24 Loc: HO.ED Attending Dr: Ordering Physician: Rafael Longoria MD Date of Service: 11/13/24 Procedure(s): CT head/brain wo IV con Accession Number(s): [id number] cc: Kym Sebastian MD; Rafael Longoria MD Report Number: [id number]: Total DLP = 0.00 mGy-cm EXAMINATION: CT [...] by: Francisco Odell MD 11/13/2024 04:22 PM [facility] Dictated By: Francisco Odell MD Signed By: <Electronically signed by Francisco Odell MD in OV> 11/13/24 1622 DD/ 1220 TD/TT: 11/13/24 1615 [employer]: [facility] External Provider IMG CT PROCEDURES Final Result * LIPID PANEL, STANDARD (04/02/2022 9:19 AM EDT) Chol/HDLC Ratio 2.4 <5.0 (calc) [facility] Cholesterol, Total 133 <200 mg/dL [facility] HDL Cholesterol 55 > OR = 40 mg/dL [facility] LDL Cholesterol 62 mg/dL (calc) [facility] Comment: Reference range: <100 ?? Desirable range <100 mg/dL for primary prevention; ?? <70 mg/dL for patients with CHD or diabetic patients ?? with > or = 2 CHD risk factors. ?? LDL-C is now calculated using the Yuniel ?? calculation, which is a validated novel method providing ?? better accuracy than the Friedewald equation in the ?? estimation of LDL-C. ?? Tyrel SALTER et al. CASEY. 2013;310(19): 2475-5096 ?? (http://education.MedaNext/faq/OPD651) Non-HDL Cholesterol 78 <130 mg/dL (calc) [facility] Comment: For patients with diabetes plus 1 major ASCVD risk ?? factor, treating to a non-HDL-C goal of <100 mg/dL ?? (LDL-C of <70 mg/dL) is considered a therapeutic ?? option. Triglycerides 76 <150 mg/dL [facility] 04/02/2022 9:19 AM EDT us Kym Sebastian MD LAB BLOOD ORDERABLES Final Resul t [facility] [address] from Last 3 Months or Most Recently Relevant to Health Maintenance Insurance MEDICARE [facility] STANDARD Care Teams Aluminizer Relationship Specialty Start Date End Date Kym Sebastian MD [address] [place] [phone] PCP - General Family Medicine 08/02/12 Vish Mendosa 05/25/24
--- OUTSIDE RECORDS SUMMARY | 2024-11-21 09:21 | XMS_ITS | Encounter Summary ---
Author Organization [employer] Address [address] [place] [address] Care Team Providers Care Mechanic Driver Name Role Phone Kym Sebastian MD Primary Care Provider [phone] Encounter Details Date Type Department Care Team (Late st Contact Info) Description 11/21/2024 Orders Only GENERIC EXTERNAL DATA DEPARTMENT Provider, Generic External Data Social History Tobacco Use Types Packs/Day Years [...] BLOOD GAS Routine 11/21/2024 8:46 AM EST CBC WITH AUTO DIFFERENTIAL Routine 11/21/2024 8:38 AM EST B TYPE NATRIURETIC PEPTIDE (BNP) Routine 11/21/2024 8:38 AM EST documented in this encounter Results * VENOUS BLOOD GAS (11/21/2024 8:46 AM EST) Pathologist [facility] VBG pH 7.43 7.32 - 7.43 [facility] Comment:METER #: [id number] additional_comment: Constantine levina VBG PCO2 39 mmHg [facility] Comment:METER #: [id number] additional_comment: Cb olliea VBG PO2 34 mmHg [facility] Comment:METER #: [id number] additional_comment: Cb olliea VBG Base Excess 2.1 mmol/L [facility] Comment:METER #: [id number] additional_comment: Constantine cortez VBG HCO3 26 22 - 26 mmol/L [facility] Comment:METER #: [id number] additional_comment: Constantine cortez O2 Sat, Tej 54.0 % [facility] Comment:METER #: [id number] additional_comment: Constantine cortez 11/21/2024 8:46 AM EST 11/21/2024 8:52 AM EST us Generic External Data Provider LAB BLOOD ORDERAB LES Final Result [facility] [address] [place] [phone] * (ABNORMAL) B Type Natriuretic Peptide (BNP) (11/21/2024 8:38 AM EST) Pathologist [facility] B Type Natriuretic Peptide 1,022(H) <100 pg/mL [facility] Comment:For those patients w ho are being treated with Natrecor(nesiritide, recombinant BNP), BNP testing should beperformed at least two hours post treatment in order toensure that only endogenous levels of BNP are detected. 11/21/2024 8:38 AM EST 11/21/2024 8:47 AM EST us Generic External Data Provider LAB BLOOD ORDERAB LES Final Result [facility] [address] [place] [phone] * (ABNORMAL) CBC auto differential (11/21/2024 8:38 AM EST) White Blood Count 11.8(H) 4.8 - 10.8 X10*3/uL [facility] Red Blood Count 4.28(L) 4.60 - 5.80 X10*6/uL [facility] Hemoglobin 13.2(L) 14.0 - 18.0 g/dl [facility] Hematocrit 40.8(L) 42.0 - 52.0 % [facility] Mean Corpuscular Volume 95.3 80.0 - 98.0 fL [facility] Mean Corpuscular Hemoglobin 30.8 27.0 - 33.0 pg [facility] Mean Corpuscular HGB Conc 32.4 31.0 - 36.0 g/dl [facility] Red Cell Distribution Width 18.1(H) 11.0 - 16.0 % [facility] Platelet Count 270 160 - 400 X10*3/uL [facility] Mean Platelet Volume 10.5 9.4 - 12.4 fL [facility] Neutrophils Percent Auto 82.0(H) 45 - 73 % [facility] Imm Gran Pct Auto 2.1(H) 0.0 - 0.4 % [facility] Lymphocytes Percent Auto 4.5(L) 20 - 40 % [facility] Monocytes Percent Auto 11.1(H) 2 - 11 % [facility] Eosinophils Percent Auto 0.1 0 - 4 % [facility] Basophils Percent Auto 0.2 0 - 2 % [facility] NRBC Pct Auto 0.0 0.0 - 0.2 /100WBC [facility] Neutrophils Absolute Auto 9.7(H) 2.0 - 8.3 x10*3/uL [facility] Imm Gran Abs Auto 0.25(H) 0.00 - 0.03 X10*3/uL [facility] Lymphocytes Absolute Auto 0.5(L) 1.2 - 4.9 X10*3/uL [facility] Monocytes Absolute Auto 1.3(H) 0.1 - 1.2 X10*3/uL [facility] Eosinophils Absolute Auto 0.0 0.0 - 0.4 X10*3/uL [facility] Basophils Absolute Auto 0.0 0.0 - 0.2 X10*3/uL [facility] NRBC Abs Auto 0.000 0.0 - 0.012 X10*3/uL [facility] 11/21/2024 8:38 AM EST 11/21/2024 8:47 AM EST us Generic External Data Provider LAB BLOOD ORDERAB LES Final Result Performing Organization Address City/State/[facility] Co de Phone Number [facility] [address] [place] [phone] documented in this encounter Visit Diagnoses Not on filedocumented in this encounter Care Teams Mechanic Driver Relationship Specialty Start Date End Date Kym Sebastian MD [address] [place] [address] PCP - General Family Medicine 08/02/12 Vish Mendosa 05/25/24 documented as of this encounter
[2024-11-21 09:29] LABS: Influenza A PCR POSITIVE (Negative); Influenza B PCR NEGATIVE (Negative); Resp Syncy Virus RNA Qual PCR NEGATIVE (Negative); SARS COV2 PCR INHOUSE NEGATIVE (Negative)
--- NOTE | 2024-11-21 09:34 | PC.NURSE ---
pt came in via EMS from [facility] with reports off diff breathing since the night before. pt was tachy, tachypneic with wet cough upon arrival. Arrived on NRB and switched first to oxymask with 100% spot, and then to BiPAP. Pt struggled with bipap - after abx, solu medrol and lasix given, 25mcg fentanyl was given for increased WOB and fighting BiPap mask. Fentanyl had good effect and pt better able to tolerate mask. SpO2 has been in the high 90s consistently. HR usually 120 or above, irregular on tele - EKG pending. labs sent, urine sent, tech doing EKG. plan of care ongoing
[2024-11-21 09:40] LABS: Alanine Aminotransferase 36 U/L (0-40); Albumin Level 3.8 g/dL (3.5-5.0); Alkaline Phosphatase 99 U/L (39-117); Anion Gap 15 (12-20); Aspartate Amino Transferase 37 U/L (5-37); Bilirubin Direct 0.4 mg/dL (0.0-0.5); Blood Urea Nitrogen 21 mg/dL (9-16); Calcium 8.7 mg/dL (8.4-10.2); Carbon Dioxide 28 mmol/L (22-29); Chloride 102 mmol/L (96-108); Creatinine Clr Calc Pharmacy 68.6; Estimated Glomerular Filt Rate > 60; Glucose Random 122 mg/dL (60-115); Magnesium 1.5 mg/dL (1.6-2.6); Potassium 4.3 mmol/L (3.3-5.1); Sodium 141 mmol/L (135-145); Total Protein 6.9 g/dL (6.5-8.0)
[2024-11-21 09:41] LABS: Troponin-I High Sensitivity 27.5 ng/L (<3.5-35.0)
[2024-11-21 09:42] LABS: Lactic Acid 3.3 mmol/L (0.5-2.0)
[2024-11-21 09:42] LABS: Appearance Urine Clear; Color Urine Yellow; Glucose Urine UA Negative (Negative); Leukocyte Esterase Urine Negative (Negative); Nitrite Urine Negative (Negative); PH 5.5 (5.0-9.0); Urine Blood Negative (Negative); Urine Ketones Negative (Negative); Urine Protein Negative (Neg-Trace)
[2024-11-21] MEDS: Acetaminophen 1,000 MG/100 ML PIGGYBACK 400 MG IV (09:47)
[2024-11-21] MEDS: vancomycin HCL 1,500 MG in 0.9 % Sodium Chloride 500 ML 333.33 MG IV (09:49)
[2024-11-21 09:55] LABS: Procalcitonin 0.11 ng/mL
[2024-11-21 11:12] LABS: Reflex Lactate? Lactic Acid Added
[2024-11-21 11:21] LABS: Troponin-I High Sensitivity 26.8 ng/L (<3.5-35.0)
[2024-11-21] MEDS: Magnesium Sulfate/H2O 2 GM/50 ML PIGGYBACK IV (11:46)
[2024-11-21 12:03] LABS: ~Lactic Acid-LAB USE ONLY 1.2 mmol/L (0.5-2.0)
[2024-11-21] MEDS: Oseltamivir Phosphate 75 MG CAPSULE PO ×2 (14:53→21:54)
--- NOTE | 2024-11-21 14:53 | PC.NURSE ---
600ml output urine after lasix
--- NOTE | 2024-11-21 15:04 | PM.IMHP ---
History of Present Illness Date of Service: 11/21/24 Attending physician on admission: Anibal White Chief Complaint: SOB and difficulty breathing Pt is a 69-year-old male with a PMH significant for?COPD on p.r.n. home O2, HFpEF on digoxin, CAD, paroxysmal AFib not on anticoagulation due to hx of falls, pulmonary hypertension, and lung nodules who presents to the ED from [facility] for evaluation of SOB, hypoxia, and difficulty breathing. Pt was recently admitted to the hospital on 11/13-11/17 for COPD and CHF exacerbations with likely underlying pneumonia. Was discharged to [facility] on Ceftin x5 days which is set to be completed tomorrow. Staff at [facility] report they found pt hypoxic and requiring 6 L NC to maintain saturation of 90%. Pt was initially placed on rescue CPAP in the ED and then transitioned to high-flow. Pt continues to have increased work of breathing and complains that he ?can't breathe?. Pt otherwise is a limited historian and simply repeats that he is having difficulty. In the ED pt was febrile up to 101.4, tachycardic up to 134, and tachypneic up to 24. EMS found pt satting at 90% on 6 L NC at facility. Pt was placed on rescue CPAP in the ED and eventually transitioned to high-flow. Labs were significant for testing positive for influenza type a, leukocytosis of 11.8, and magnesium 1.5. Stable normocytic anemia. Renal function WNL. Hepatic function WNL. Serial troponins flat 27.5 and 26.8. BNP elevated at 1022, but similar to previous and at baseline. Procalcitonin 0.11. UA negative for UTI. CXR showed no active superimposed disease, but showed COPD, right upper lobe scarring, and nodular opacity of left upper lobe suspected of neoplasm. EKG demonstrated AFib with RVR of 105, and ST depressions in anterolateral leads. Pt was treated with Lasix, Solu-Medrol, fentanyl, Tylenol, magnesium sulfate, vancomycin, cefepime, and Tamiflu. Pt will be admitted to the hospital for treatment and further evaluation of acute on chronic hypoxic respiratory failure in the setting of COPD exacerbation secondary to influenza type A infection. Review of Systems Review of Systems: Negative except for that which is stated in the HPI, though difficult to obtain as pt is a limited historian [facility] Medical History Pleural effusion Pneumonia Respiratory failure with hypoxia History of DC (myocardial infarction) History of seizure due to alcohol withdrawal Atrial fibrillation with slow ventricular response Hypoxemia CAP (community acquired pneumonia) Chronic respiratory failure Atherosclerotic cardiovascular disease CHF (congestive heart failure) CAD (coronary artery disease) History of ischemic cardiomyopathy Tobacco abuse Alcohol abuse Hypercholesteremia COPD (chronic obstructive pulmonary disease) Surgical History History of coronary artery bypass graft x 3 (~2012) History of surgery on lower extremity (~2018) Social History Household Members: Family Household Members Other:: CHILDREN,GRANDCHILDREN Housing: House Do you presently have visiting nurse or other home services: Yes Alcohol intake: current Alcohol intake frequency: 3 or more drinks per day Alcohol type: hard liquor Patient Tobacco Use Status: Former Tobacco user Tobacco use type: Cigarette Cigarette Packs Per Day: 0.5 Cigarettes Per Day: 7 Years Smoked: 40+ Smoked in Last 30 Days: No e-Cigarette/Vaping Use: Never Used Second Hand Smoke Exposure: No Use of substances other than those prescribed or required for medical reasons: No Advance Directives: Yes Advance Directives on File: Yes Advance Directives Date on File: 11/08/20 service: No Current occupational status: retired [employer] Allergies Allergy/AdvReac Type Severity Reaction Status Date / Time No Known Allergies Allergy Verified 11/21/24 08:28 [No Known Allergies*] Home Medications ?Medication ?Instructions ?Recorded ?Confirmed ?Last Taken ?Type aspirin 81 mg tablet,delayed 81 mg PO DAILY 08/12/20 11/21/24 1 Day Ago History release ~11/12/24 thiamine HCl (vitamin B1) 100 mg 100 mg PO DAILY 11/05/20 11/21/24 1 Day Ago History tablet (Vitamin B-1) ~11/12/24 cholecalciferol (vitamin D3) 25 25 mcg PO DAILY 11/07/20 11/21/24 1 Day Ago History mcg (1,000 unit) capsule (Vitamin ~11/12/24 D3) acetaminophen 325 mg tablet 650 mg PO Q6H PRN Pain 11/21/24 11/21/24 Unknown History albuterol sulfate 90 mcg/actuation 2 puff inhalation Q6H PRN 11/21/24 11/21/24 Unknown History aerosol inhaler shortness of breath or wheezing bisacodyl 10 mg rectal suppository 10 mg RI Q3D PRN Constipation 11/21/24 11/21/24 Unknown History (Dulcolax (bisacodyl)) fluticasone furoate 200 1 inh inhalation DAILY SEVERE copd 11/21/24 11/21/24 Unknown History mcg-vilanterol 25 mcg/dose inhalation powder (Breo Ellipta) magnesium hydroxide 400 mg/5 mL 30 ml PO DAILY PRN Constipation 11/21/24 11/21/24 Unknown History oral suspension (Milk of Magnesia) sodium phosphates 19 gram-7 118 ml RI DAILY PRN Constipation 11/21/24 11/21/24 Unknown History gram/118 mL enema (Fleet Enema) Physical Exam Vital Signs and Narrative: Vital Signs: Last Vital Signs Temp 97.8 F 11/21/24 14:52 Pulse 68 11/21/24 14:52 Resp 12 11/21/24 14:52 BP 102/49 L 11/21/24 14:52 Pulse Ox 98 11/21/24 14:52 O2 Del Method High Flow Nasal C annula 11/21/24 14:52 Oxygen Flow Rate 7 11/21/24 08:26 BMI result Body Mass Index 18.3 General: AOx3, disheveled, cachectic Resp: Diffuse wheezing. Lung sounds diminished bilaterally. Increased work of breathing, pt on high-flow. Speaking in 1-2 word sentences CVS: S1, S2, RRR GI: +BS, NT, no distention Skin: Warm, dry Neuro: Cranial nerves II-XII grossly intact bilaterally. Motor grossly intact bilaterally Extremities: No edema Psych: Appropriate affect Results Labs 11/21/24 08:38 11/21/24 09:07 Labs: Laboratory Results - last 24 hr 11/21/24 11/21/24 11/21/24 08:38 08:39 08:46 MCV 95.3 MCH 30.8 MCHC 32.4 RDW 18.1 H Plt Count 270 MPV 10.5 Immature Gran % (Auto) 2.1 H Neut % (Auto) 82.0 H Lymph % (Auto) 4.5 L [place] % (Auto) 11.1 H Eos % (Auto) 0.1 Baso % (Auto) 0.2 Lymph # (Auto) 0.5 L [place] # (Auto) 1.3 H Eos # (Auto) 0.0 Baso # (Auto) 0.0 Abs Immat Gran (auto) 0.25 H Absolute Neuts (auto) 9.7 H Absolute Nucleated RBC 0.000 Nucleated RBC % (auto) 0.0 VBG pH 7.43 VBG pCO2 39 VBG pO2 34 VBG HCO3 26 VBG O2 Saturation 54.0 VBG Base Excess 2.1 Anion Gap Estim Creat Clear Calc Estimated GFR Random Glucose Lactic Acid Lactic Acid F/U @ 2Hr Calcium Magnesium Total Bilirubin Direct Bilirubin AST ALT Alkaline Phosphatase B-Natriuretic Peptide 1022 H Total Protein Albumin Procalcitonin Urine Color Urine Appearance Urine pH Ur Specific [place] Urine Protein Urine Glucose (UA) Urine Ketones Urine Blood Urine Nitrite Ur Leukocyte Esterase Influenza Type A (PCR) POSITIVE A Influenza Type B (PCR) NEGATIVE RSV RNA Qual (PCR) NEGATIVE SARS-CoV-2 RNA (RT-PCR) NEGATIVE 11/21/24 11/21/24 11/21/24 09:07 09:29 11:31 MCV MCH MCHC RDW Plt Count MPV Immature Gran % (Auto) Neut % (Auto) Lymph % (Auto) [place] % (Auto) Eos % (Auto) Baso % (Auto) Lymph # (Auto) [place] # (Auto) Eos # (Auto) Baso # (Auto) Abs Immat Gran (auto) Absolute Neuts (auto) Absolute Nucleated RBC Nucleated RBC % (auto) VBG pH VBG pCO2 VBG pO2 VBG HCO3 VBG O2 Saturation VBG Base Excess Anion Gap 15 Estim Creat Clear Calc 68.6 Estimated GFR > 60 Random Glucose 122 H Lactic Acid 3.3 H* Lactic Acid F/U @ 2Hr 1.2 Calcium 8.7 D Magnesium 1.5 L Total Bilirubin 1.0 Direct Bilirubin 0.4 AST 37 ALT 36 Alkaline Phosphatase 99 B-Natriuretic Peptide Total Protein 6.9 Albumin 3.8 Procalcitonin 0.11 Urine Color Yellow Urine Appearance Clear Urine pH 5.5 Ur Specific [place] 1.020 Urine Protein Negative Urine Glucose (UA) Negative Urine Ketones Negative Urine Blood Negative Urine Nitrite Negative Ur Leukocyte Esterase Negative Influenza Type A (PCR) Influenza Type B (PCR) RSV RNA Qual (PCR) SARS-CoV-2 RNA (RT-PCR) Imaging Radiologist's Impressions: Impressions Chest X-Ray 11/21/24 09:40 IMPRESSION: 1. COPD. Right upper lobe scarring. 2. Nodular opacity left upper lobe laterally and region of known suspected neoplasm. 3. No active superimposed disease. Electronically signed by: Francisco Odell MD 11/21/2024 12:53 PM [facility] Assessment and Plan (1) Influenza A: Status: Acute (2) Acute on chronic hypoxic respiratory failure: Status: Resolved Plan Pt is a 69-year-old male with a PMH significant for?COPD on p.r.n. home O2, HFpEF on digoxin, CAD, persistent AFib not on anticoagulation due to hx of falls, pulmonary hypertension, and lung nodules who presents to the ED from [facility] for evaluation of SOB, hypoxia, and difficulty breathing. Pt will be admitted to the hospital for treatment and further evaluation of acute on chronic hypoxic respiratory failure in the setting of COPD exacerbation secondary to influenza type A infection. Acute on chronic hypoxic respiratory failure in the setting of acute influenza type a infection Pt severely dyspneic, required rescue CPAP currently on high-flow, flu+, increased work of breathing DuoNebs, Solu-Medrol, Tamiflu, guaifenesin Titrate supplemental O2 >90, wean as tolerated Monitor respiratory status Viral sepsis Pt with fever, tachycardia, and tachypnea Secondary to viral infection from COVID Pt currently being treated with antibiotics for pneumonia Acute lactic acidosis, resolved Initial lactic acid 3.3 with repeat 1.2 after IVF Secondary to hypoxia and viral sepsis Community-acquired pneumonia From previous admission Continue Ceftin, last day tomorrow Lung nodules CTA from 11/13/2024 found ill-defined nodules in the left upper lobe suspicious for primary or metastatic lung lesion Follow up outpatient Persistent AFib Not on anticoagulation due to hx of frequent falls Continue, digoxin HFpEF Not in acute exacerbation Continue home Lasix HLD Continue statin Full Code Attending:?Dr. White DVT Prophylaxis: Lovenox Pt will require a hospitalization of at least two nights for treatment of?acute on chronic hypoxic respiratory failure in the setting of COPD exacerbation secondary to acute influenza type a infection. Pt currently on high-flow and will require hospital level care for administration of supplemental oxygen, IV steroids, breathing treatments, and close monitoring of respiratory status. Quality Stroke Does the patient have a stroke diagnosis?: No VTE Prior VTE?: No VTE Risk Level:: Medical - moderate - high VTE Device Contraindication: Treatment Not Indicated VTE Drug Contraindication: N/A - Med Ordered
--- NOTE | 2024-11-21 15:32 | PHA.MEDREC ---
Addendum entered by Corby Sykes 11/21/24 17:09: reviewed Original Note: Pharmacy Consult ? Medication Reconciliation Pharmacy has completed the medication reconciliation. Utilized list from [facility] to confirm med list.
[2024-11-21] MEDS: methylPREDNISolone Sod Succ 40 MG/ML VIAL IVPUSH (18:11)
[2024-11-21] MEDS: Enoxaparin Sodium 40 MG/0.4 ML SYRINGE SUBCUT (18:12)
--- NOTE | 2024-11-21 18:25 | PC.NURSE ---
[facility] hospitalist called to bedside and RT due to severe SOB, and increased WOB. pts sat were good (high 90s) but tripoding and unable to sepak full sentences. Verbal order for 4mg morphine given with improvement.
[2024-11-21] MEDS: Morphine Sulfate 4 MG/ML CARTRIDGE IVPUSH (19:13)
[2024-11-21] MEDS: Albuterol/Iprat 2.5/0.5MG 3 ML AMPUL.NEB INHALE (20:11)
[2024-11-21] MEDS: Acetaminophen 325 MG TABLET 650 MG PO (20:23)
[2024-11-21] MEDS: guaiFEN/Codeine SF 200/20/10ML 10 ML LIQUID PO (20:23)
[2024-11-21] MEDS: Metoprolol Tartrate 50 MG TABLET PO (20:23)
[2024-11-21] MEDS: cefuroxime axetiL 500 MG TABLET PO (20:23)
[2024-11-22] VITALS (12 sets, daily range): BP systolic 102–122; BP diastolic 48–70; PULSE 52–130; RESP 13–20; TEMP 36.4–36.7; O2SAT 94–100; BMI 18.3
[2024-11-22] MEDS: methylPREDNISolone Sod Succ 40 MG/ML VIAL IVPUSH ×2 (04:44→15:50)
--- NOTE | 2024-11-22 06:07 | PC.NURSE ---
RT switched from HFNC to 6L [place]. maintaining >95% SpO2 at this time. pt denies complaints, calm sitting in bed, verbalizes that needs are met. call styles in reach. plan of care ongoing.
[2024-11-22] MEDS: Albuterol/Iprat 2.5/0.5MG 3 ML AMPUL.NEB INHALE ×4 (07:57→18:35)
[2024-11-22] MEDS: Fluticasone/Vilanterol 200/25 BLST.W.DEV 1 PUFF INHALE (07:57)
[2024-11-22] MEDS: Cholecalciferol (Vitamin D3) 25 MCG TABLET PO (08:59)
[2024-11-22] MEDS: Famotidine 20 MG TABLET PO (08:59)
[2024-11-22] MEDS: Metoprolol Tartrate 50 MG TABLET PO ×2 (09:00→22:18)
[2024-11-22] MEDS: Thiamine HCL 100 MG TABLET PO (09:00)
[2024-11-22] MEDS: Digoxin 0.125 MG TABLET PO (09:00)
[2024-11-22] MEDS: Aspirin Enteric Coated 81 MG TABLET.DR PO (09:00)
[2024-11-22] MEDS: cefuroxime axetiL 500 MG TABLET PO ×2 (09:00→22:18)
[2024-11-22] MEDS: Atorvastatin Calcium 20 MG TABLET PO (09:00)
[2024-11-22] MEDS: 0.9 % Sodium Chloride Flush 3 ML SYRINGE IVFLUSH ×3 (09:01→22:19)
--- NOTE | 2024-11-22 09:16 | PC.NURSE ---
Pt is alert/oriented but slow to respond to questions asked. Appears uncomfortable, occasional groaning but denies pain and states overall feeling unwell. Rapid A fib on tele intermittently and briefly noted up to 140s. Meds given, Dr Briones notified. Morales patent with dark yellow urine. Skin pale, warm and dry. Remains on 4lpm via flores with humidified 02.
--- NOTE | 2024-11-22 10:16 | P.PNIM_ITS ---
Subjective Subjective Date of Service: 11/22/24 Interval History: sob improved Physical Exam 2 Vital Signs: Vital Signs: Last Vital Signs Temp 98.1 F 11/22/24 08:50 Pulse 130 H 11/22/24 09:00 Resp 15 11/22/24 08:50 BP 121/70 11/22/24 09:00 Pulse Ox 94 11/22/24 08:50 O2 Del Method Nasal Cannula 11/22/24 08:50 O2 Flow Rate 6 11/22/24 08:50 Oxygen Flow Rate 7 11/21/24 08:26 BMI result Body Mass Index 18.3 General: AO X 3, less distress, but frail and ill appearing, cachexic Resp: diminished bilateral, mild accessory muscles used CVS: S1,S2,Rapid irregular GI: soft, non tender, non distended Neuro: motor grossly intact, alert Psych: appropriate affect, appropriate insight Objective Data Active Medications Acetaminophen (Acetaminophen 325 Mg Tablet) 650 mg PO Q6H PRN PRN Reason: Pain, Mild 1-3,fever,headache Last Admin: 11/21/24 20:23 Dose: 650 mg Documented By: KRISHNA Comments: pt requested Albuterol/Ipratropium (Albuterol/Iprat 2.5/0.5mg 3 Ml Ampul.Neb) 3 ml INHALE RQ4H WHILE AWAKE [facility] Last Admin: 11/22/24 07:57 Dose: 3 ml Documented By: ZIA Albuterol/Ipratropium (Albuterol/Iprat 2.5/0.5mg 3 Ml Ampul.Neb) 3 ml INHALE RQ4H WHILE AWAKE PRN PRN Reason: Shortness of Breath/Wheezing Aspirin (Aspirin Enteric Coated 81 Mg Tablet.Dr) 81 mg PO DAILY [facility] Last Admin: 11/22/24 09:00 Dose: 81 mg Documented By: ARMAND Atorvastatin Calcium (Atorvastatin Calcium 20 Mg Tablet) 20 mg PO DAILY [facility] Last Admin: 11/22/24 09:00 Dose: 20 mg Documented By: ARMAND Bisacodyl (Bisacodyl 10 Mg Supp.Rect) 10 mg GA Q3D PRN PRN Reason: Constipation Calcium Carbonate (Calcium Carbonate 750 Mg Tab.Chew) 750 mg PO Q4H PRN PRN Reason: Heartburn Cefuroxime Axetil (Cefuroxime Axetil 500 Mg Tablet) 500 mg PO BID [facility] Stop: 11/22/24 21:01 Last Admin: 11/22/24 09:00 Dose: 500 mg Documented By: ARMAND Digoxin (Digoxin 0.125 Mg Tablet) 0.125 mg PO DAILY [facility]; Protocol Last Admin: 11/22/24 09:00 Dose: 0.125 mg Documented By: ARMAND Enoxaparin Sodium (Enoxaparin Sodium 40 Mg/0.4 Ml Syringe) 40 mg SUBCUT Q24H [facility] Last Admin: 11/21/24 18:12 Dose: 40 mg Documented By: SUSAN Famotidine (Famotidine 20 Mg Tablet) 20 mg PO DAILY [facility] Last Admin: 11/22/24 08:59 Dose: 20 mg Documented By: ARMAND Fluticasone/Vilanterol (Fluticasone/Vilanterol 200/25 Blst.W.Dev) 1 puff INHALE DAILY [facility] Last Admin: 11/22/24 07:57 Dose: 1 puff Documented By: ZIA Furosemide (Furosemide 20 Mg Tablet) 20 mg PO DAILY PRN; Protocol PRN Reason: for edema Guaifenesin/Codeine Phosphate (Guaifen/Codeine Sf 200/20/10ml 10 Ml Liquid) 10 ml PO Q4H PRN PRN Reason: Cough Last Admin: 11/21/24 20:23 Dose: 10 ml Documented By: KRISHNA Magnesium Hydroxide (Milk Of Magnesia 30 Ml Oral.Susp) 30 ml PO DAILY PRN PRN Reason: Constipation Magnesium Hydroxide (Milk Of Magnesia 30 Ml Oral.Susp) 30 ml PO DAILY PRN PRN Reason: Constipation Melatonin (Melatonin 3 Mg Tablet) 6 mg PO BEDTIME PRN PRN Reason: Insomnia Methylprednisolone Sodium Succinate (Methylprednisolone Sod Succ 40 Mg/Ml Vial) 40 mg IVPUSH Q12H [facility] Last Admin: 11/22/24 04:44 Dose: 40 mg Documented By: KRISHNA Metoprolol Tartrate (Metoprolol Tartrate 50 Mg Tablet) 50 mg PO BID [facility]; Protocol Last Admin: 11/22/24 09:00 Dose: 50 mg Documented By: ARMAND Morphine Sulfate (Morphine Sulfate 4 Mg/Ml Cartridge) 4 mg IVPUSH Q6H PRN; Protocol PRN Reason: anxiety/restlessness Ondansetron HCl (Ondansetron Hcl 4 Mg/2 Ml Vial) 4 mg IVPUSH Q8H PRN PRN Reason: Nausea and Vomiting Oseltamivir Phosphate (Oseltamivir Phosphate 75 Mg Capsule) 75 mg PO Q12H [facility] Stop: 11/25/24 22:46 Last Admin: 11/21/24 21:54 Dose: 75 mg Documented By: KRISHNA Sodium Biphosphate/Sodium Phosphate (Sodium Phosphate,Yell-Dibasic 133 Ml Enema) 118 ml GA DAILY PRN PRN Reason: Constipation Sodium Chloride (0.9 % Sodium Chloride Flush 3 Ml Syringe) 3 ml IVFLUSH QSHIFT [facility] Last Admin: 11/22/24 09:01 Dose: 3 ml Documented By: ARMAND Thiamine HCl (Thiamine Hcl 100 Mg Tablet) 100 mg PO DAILY [facility] Last Admin: 11/22/24 09:00 Dose: 100 mg Documented By: ARMAND Vitamin D (Cholecalciferol (Vitamin D3) 25 Mcg Tablet) 25 mcg PO DAILY [facility] Last Admin: 11/22/24 08:59 Dose: 25 mcg Documented By: ARMAND Labs 11/21/24 08:38 11/21/24 09:07 Labs: Laboratory Results - last 24 hr 11/21/24 11:31 Lactic Acid F/U @ 2Hr 1.2 Assessment and Plan (1) CAD (coronary artery disease): Status: Acute Plan 69M PMH copd on prn o2, heart failure with recovered EF, CAD, persistent aib, pulm htn, lung nodules, presented with sob, hypoxia, flu a positive Viral sepsis and acute on chronic hypoxic respiratory failure secondary to COPD with acute decompensation due to influenza a Steroids, DuoNebs, Tamiflu Weaned off high-flow, continue to wean to baseline O2 Recent pneumonia 1 more day of Ceftin Suspicious lung nodules Outpatient follow up Persistent atrial fibrillation with rapid ventricular response Continue digoxin Chronic CHF with recovered ejection fraction Continue Lasix Hyperlipidemia Continue statin CAD Aspirin, statin DVT prophylaxis with Lovenox Full Code reason for continued hospitalization: Hypoxia Quality Stroke Does the patient have a stroke diagnosis?: No VTE Prior VTE?: No VTE Risk Level:: Medical - moderate - high VTE Device Contraindication: Treatment Not Indicated VTE Drug Contraindication: N/A - Med Ordered
--- NOTE | 2024-11-22 10:34 | MHC.CM.PN ---
11/22/24 10:29 - Case Mgmt Progress Note by Priya Sandoval Acct Num: [id number] : 1955 Patient Age: 69 Patient comes to [facility] from [facility], where he is a [facility] bed hold. Patient is on contact precautions and IMM was addressed verbally. Returning to [facility] is the goal and CM has initiated and will follow for dc planning. PCP is Dr. Kym Sebastian and Daughter/Kamla is the HCP.BUSINESS SOLUTIONS ARCHITECT Patient lived in a house with his Son, Brother, and Grandson and he used a cane & walker to assist with mobility. [place] Initialized on 11/22/24 10:29 - END OF NOTE
[2024-11-22] MEDS: Oseltamivir Phosphate 75 MG CAPSULE PO ×2 (10:46→22:18)
--- NOTE | 2024-11-22 12:20 | PC.NURSE ---
Addendum entered by Elizabeth Busch, RN 11/22/24 12:21: Messaged covering provider, Dr. White RE: lasix order - only ordered PRN for edema, no scheduled doses ordered. Christopher Ring to review, no new orders at this time. Original Note: Assumed care of patient at 1100, patient titrated down to 2L by RT, resting quietly denies SOB/pain at this time.
[2024-11-22] MEDS: Morphine Sulfate 4 MG/ML CARTRIDGE IVPUSH (15:49)
[2024-11-22] MEDS: ondansetron HCL 4 MG/2 ML VIAL IVPUSH (15:49)
[2024-11-22] MEDS: guaiFEN/Codeine SF 200/20/10ML 10 ML LIQUID PO (15:49)
--- NOTE | 2024-11-22 20:47 | PM.EVENT ---
Event Note Date of Service: 11/22/24 Event Note: Patient has MOLST form> DNR/DNI. Will change code status. Time Spent With Patient Time: Total time managing care of this patient today ____ minutes.
[2024-11-23] VITALS (10 sets, daily range): BP systolic 92–140; BP diastolic 55–74; PULSE 67–146; RESP 16–20; TEMP 36.1–36.7; O2SAT 88–98; BMI 19.9
[2024-11-23] MEDS: methylPREDNISolone Sod Succ 40 MG/ML VIAL IVPUSH ×2 (06:17→17:22)
[2024-11-23] MEDS: levalbuterol HCL 1.25 MG/3 ML VIAL.NEB INHALE ×4 (07:26→20:15)
[2024-11-23] MEDS: Fluticasone/Vilanterol 200/25 BLST.W.DEV 1 PUFF INHALE (07:26)
[2024-11-23] MEDS: Aspirin Enteric Coated 81 MG TABLET.DR PO (07:54)
[2024-11-23] MEDS: Thiamine HCL 100 MG TABLET PO (07:54)
[2024-11-23] MEDS: Atorvastatin Calcium 20 MG TABLET PO (07:54)
[2024-11-23] MEDS: Digoxin 0.125 MG TABLET PO (07:55)
[2024-11-23] MEDS: Famotidine 20 MG TABLET PO (07:55)
[2024-11-23] MEDS: Metoprolol Tartrate 50 MG TABLET PO ×2 (07:55→20:13)
[2024-11-23] MEDS: Cholecalciferol (Vitamin D3) 25 MCG TABLET PO (07:55)
[2024-11-23 08:12] LABS: Hemoglobin 12.5 g/dl (14.0-18.0); Mean Corpuscular HGB Conc 32.9 g/dl (31.0-36.0); Mean Corpuscular Volume 94.3 fL (80.0-98.0); Mean Platelet Volume 10.8 fL (9.4-12.4); Platelet Count 252 X10*3/uL (160-400); Red Blood Count 4.03 X10*6/uL (4.60-5.80); Red Cell Distribution Width 17.8 % (11.0-16.0); White Blood Count 17.2 X10*3/uL (4.8-10.8)
[2024-11-23 08:24] LABS: Anion Gap 12 (12-20); Blood Urea Nitrogen 30 mg/dL (9-16); Calcium 8.5 mg/dL (8.4-10.2); Carbon Dioxide 28 mmol/L (22-29); Chloride 105 mmol/L (96-108); Creatinine Clr Calc Pharmacy 76.9; Estimated Glomerular Filt Rate > 60; Glucose Random 102 mg/dL (60-115); Potassium 4.6 mmol/L (3.3-5.1); Sodium 140 mmol/L (135-145)
[2024-11-23] MEDS: 0.9 % Sodium Chloride Flush 3 ML SYRINGE IVFLUSH ×2 (09:26→17:22)
--- NOTE | 2024-11-23 09:30 | HO.PM.IMPN ---
Subjective Subjective Date of Service: 11/23/24 Interval History: sob improved, feels about 50% better Physical Exam Vital Signs: Vital Signs: Last Vital Signs Temp 97.4 F 11/23/24 08:00 Pulse 146 H 11/23/24 08:00 Resp 19 11/23/24 08:00 BP 111/64 11/23/24 08:00 Pulse Ox 94 11/23/24 08:00 O2 Del Method Nasal Cannula 11/23/24 08:00 O2 Flow Rate 2 11/23/24 08:00 Oxygen Flow Rate 7 11/21/24 08:26 BMI result Body Mass Index 18.3 General: AO X 3, less distress, but frail and ill appearing, cachexic Resp: diminished bilateral, mild accessory muscles used CVS: S1,S2,Rapid irregular GI: soft, non tender, non distended Neuro: motor grossly intact, alert Psych: appropriate affect, appropriate insight Objective Data Active Medications Acetaminophen (Acetaminophen 325 Mg Tablet) 650 mg PO Q6H PRN PRN Reason: Pain, Mild 1-3,fever,headache Last Admin: 11/21/24 20:23 Dose: 650 mg Documented By: KRISHNA Comments: pt requested Aspirin (Aspirin Enteric Coated 81 Mg Tablet.) 81 mg PO DAILY [facility] Last Admin: 11/23/24 07:54 Dose: 81 mg Documented By: MINAL Atorvastatin Calcium (Atorvastatin Calcium 20 Mg Tablet) 20 mg PO DAILY [facility] Last Admin: 11/23/24 07:54 Dose: 20 mg Documented By: MINAL Bisacodyl (Bisacodyl 10 Mg Supp.Rect) 10 mg DE Q3D PRN PRN Reason: Constipation Calcium Carbonate (Calcium Carbonate 750 Mg Tab.Chew) 750 mg PO Q4H PRN PRN Reason: Heartburn Digoxin (Digoxin 0.125 Mg Tablet) 0.125 mg PO DAILY [facility]; Protocol Last Admin: 11/23/24 07:55 Dose: 0.125 mg Documented By: MINAL Enoxaparin Sodium (Enoxaparin Sodium 40 Mg/0.4 Ml Syringe) 40 mg SUBCUT Q24H [facility] Last Admin: 11/22/24 18:33 Dose: Not Given Documented By: OLIVIA Non-Admin Reason: Patient Refused Famotidine (Famotidine 20 Mg Tablet) 20 mg PO DAILY [facility] Last Admin: 11/23/24 07:55 Dose: 20 mg Documented By: MINAL Fluticasone/Vilanterol (Fluticasone/Vilanterol 200/25 Blst.W.Dev) 1 puff INHALE DAILY [facility] Last Admin: 11/23/24 07:26 Dose: 1 puff Documented By: ZIA Furosemide (Furosemide 20 Mg Tablet) 20 mg PO DAILY PRN; Protocol PRN Reason: for edema Guaifenesin/Codeine Phosphate (Guaifen/Codeine Sf 200/20/10ml 10 Ml Liquid) 10 ml PO Q4H PRN PRN Reason: Cough Last Admin: 11/22/24 15:49 Dose: 10 ml Documented By: BERTRAM Levalbuterol HCl (Levalbuterol Hcl 1.25 Mg/3 Ml Vial.Neb) 1.25 mg INHALE Q4H PRN PRN Reason: Wheezing Levalbuterol HCl (Levalbuterol Hcl 1.25 Mg/3 Ml Vial.Neb) 1.25 mg INHALE RQ4H WHILE AWAKE [facility] Last Admin: 11/23/24 07:26 Dose: 1.25 mg Documented By: ZIA Magnesium Hydroxide (Milk Of Magnesia 30 Ml Oral.Susp) 30 ml PO DAILY PRN PRN Reason: Constipation Magnesium Hydroxide (Milk Of Magnesia 30 Ml Oral.Susp) 30 ml PO DAILY PRN PRN Reason: Constipation Melatonin (Melatonin 3 Mg Tablet) 6 mg PO BEDTIME PRN PRN Reason: Insomnia Methylprednisolone Sodium Succinate (Methylprednisolone Sod Succ 40 Mg/Ml Vial) 40 mg IVPUSH Q12H [facility] Last Admin: 11/23/24 06:17 Dose: 40 mg Documented By: ANDERSON Metoprolol Tartrate (Metoprolol Tartrate 50 Mg Tablet) 50 mg PO BID [facility]; Protocol Last Admin: 11/23/24 07:55 Dose: 50 mg Documented By: MINAL Morphine Sulfate (Morphine Sulfate 4 Mg/Ml Cartridge) 4 mg IVPUSH Q6H PRN; Protocol PRN Reason: anxiety/restlessness Last Admin: 11/22/24 15:49 Dose: 4 mg Documented By: BERTRAM Ondansetron HCl (Ondansetron Hcl 4 Mg/2 Ml Vial) 4 mg IVPUSH Q8H PRN PRN Reason: Nausea and Vomiting Last Admin: 02/19/25 15:49 Dose: 4 mg Documented By: DITOLC Oseltamivir Phosphate (Oseltamivir Phosphate 75 Mg Capsule) 75 mg PO Q12H [facility] Stop: 11/25/24 22:46 Last Admin: 11/22/24 22:18 Dose: 75 mg Documented By: JUDI Sodium Biphosphate/Sodium Phosphate (Sodium Phosphate,Scioto-Dibasic 133 Ml Enema) 118 ml DE DAILY PRN PRN Reason: Constipation Sodium Chloride (0.9 % Sodium Chloride Flush 3 Ml Syringe) 3 ml IVFLUSH QSHIFT [facility] Last Admin: 11/23/24 09:26 Dose: 3 ml Documented By: MINAL Thiamine HCl (Thiamine Hcl 100 Mg Tablet) 100 mg PO DAILY [facility] Last Admin: 11/23/24 07:54 Dose: 100 mg Documented By: MINAL Vitamin D (Cholecalciferol (Vitamin D3) 25 Mcg Tablet) 25 mcg PO DAILY [facility] Last Admin: 11/23/24 07:55 Dose: 25 mcg Documented By: MINAL Labs 11/23/24 07:36 11/23/24 07:36 Labs: Laboratory Results - last 24 hr 11/23/24 07:36 MCV 94.3 MCH 31.0 MCHC 32.9 RDW 17.8 H Plt Count 252 MPV 10.8 Absolute Nucleated RBC 0.000 Nucleated RBC % (auto) 0.0 Anion Gap 12 Estim Creat Clear Calc 76.9 Estimated GFR > 60 Random Glucose 102 Calcium 8.5 Microbiology Microbiology Results: Microbiology 11/21/24 08:44 Blood Culture - Preliminary Blood - Venous No growth after 24 hours. 11/21/24 08:37 Blood Culture - Preliminary Blood - Venous No growth after 24 hours. Assessment and Plan (1) CAD (coronary artery disease): Status: Acute Plan 69M PMH copd on prn o2, heart failure with recovered EF, CAD, persistent aib, pulm htn, lung nodules, presented with sob, hypoxia, flu a positive Viral sepsis and acute on chronic hypoxic respiratory failure secondary to COPD with acute decompensation due to influenza a Steroids, DuoNebs, Tamiflu Weaned off high-flow, continue to wean to baseline O2 Recent pneumonia completed course of Ceftin Suspicious lung nodules with moderate protein calorie malnutrition concern for lung malignancy patient aware and is not interested in further work up Persistent atrial fibrillation with rapid ventricular response Continue digoxin Chronic CHF with recovered ejection fraction Continue Lasix Hyperlipidemia Continue statin CAD Aspirin, statin DVT prophylaxis with Lovenox Full Code reason for continued hospitalization: Hypoxia Quality Stroke Does the patient have a stroke diagnosis?: No VTE Prior VTE?: No VTE Risk Level:: Medical - moderate - high VTE Device Contraindication: Treatment Not Indicated VTE Drug Contraindication: N/A - Med Ordered
[2024-11-23] MEDS: Oseltamivir Phosphate 75 MG CAPSULE PO ×2 (11:25→22:44)
--- NOTE | 2024-11-23 16:34 | MHC.CLN ---
NUTRITION DIET=2 GRAM SODIUM. ADDING ENSURE TID TO INCREASE NUTRITIONAL INTAKE. SUPPLEMENT PROVIDES 1050 KCALS, 60 G PROTEIN. REPORTED POOR PO PRIOR TO ADMISSION. WEIGHT IS 86% OF IBW. QUALIFIES NON SEVERE MALNUTRITION IN THE CONTEXT OF ACUTE ILLNESS. MILD DEPLETION OF BODY FAT AND MUSCLE MASS NOTED. SKIN WITH REDNESS TO COCCYX, NO OPEN AREAS. FOLLOW FOR PO INTAKE. SEE CLINICAL NUTRITION ASSESSMENT 11/23/24.
[2024-11-23] MEDS: Enoxaparin Sodium 40 MG/0.4 ML SYRINGE SUBCUT (17:22)
[2024-11-24] VITALS (7 sets, daily range): BP systolic 125–131; BP diastolic 58–90; PULSE 69–128; RESP 16–20; TEMP 36.4–37.2; O2SAT 90–94
[2024-11-24] MEDS: 0.9 % Sodium Chloride Flush 3 ML SYRINGE IVFLUSH ×2 (01:28→09:30)
[2024-11-24] MEDS: methylPREDNISolone Sod Succ 40 MG/ML VIAL IVPUSH (05:14)
[2024-11-24 07:09] LABS: Hematocrit 35.6 % (42.0-52.0); Hemoglobin 11.6 g/dl (14.0-18.0); Mean Corpuscular HGB Conc 32.6 g/dl (31.0-36.0); Mean Corpuscular Hemoglobin 30.5 pg (27.0-33.0); Mean Corpuscular Volume 93.7 fL (80.0-98.0); Mean Platelet Volume 10.4 fL (9.4-12.4); Platelet Count 229 X10*3/uL (160-400); Red Cell Distribution Width 17.7 % (11.0-16.0); White Blood Count 18.2 X10*3/uL (4.8-10.8)
[2024-11-24 07:37] LABS: Anion Gap 11 (12-20); Blood Urea Nitrogen 37 mg/dL (9-16); Calcium 8.4 mg/dL (8.4-10.2); Carbon Dioxide 27 mmol/L (22-29); Chloride 104 mmol/L (96-108); Creatinine Clr Calc Pharmacy 82.4; Estimated Glomerular Filt Rate > 60; Glucose Random 125 mg/dL (60-115); Magnesium 2.1 mg/dL (1.6-2.6); Potassium 4.8 mmol/L (3.3-5.1); Sodium 137 mmol/L (135-145)
[2024-11-24] MEDS: levalbuterol HCL 1.25 MG/3 ML VIAL.NEB INHALE (07:54)
[2024-11-24] MEDS: Fluticasone/Vilanterol 200/25 BLST.W.DEV 1 PUFF INHALE (07:54)
[2024-11-24] MEDS: Metoprolol Tartrate 50 MG TABLET PO (09:27)
[2024-11-24] MEDS: Aspirin Enteric Coated 81 MG TABLET.DR PO (09:27)
[2024-11-24] MEDS: Atorvastatin Calcium 20 MG TABLET PO (09:27)
[2024-11-24] MEDS: Famotidine 20 MG TABLET PO (09:28)
[2024-11-24] MEDS: Cholecalciferol (Vitamin D3) 25 MCG TABLET PO (09:28)
[2024-11-24] MEDS: Oseltamivir Phosphate 75 MG CAPSULE PO (09:28)
[2024-11-24] MEDS: Digoxin 0.125 MG TABLET PO (09:28)
[2024-11-24] MEDS: Thiamine HCL 100 MG TABLET PO (09:28)
--- NOTE | 2024-11-24 11:18 | PM.DS ---
DS: Providers Provider Date of Service: 11/24/24 Date of admission: 11/21/24 17:50 Date of discharge: 11/24/24 Primary care physician: Kym Sebastian MD DS: Diagnosis Discharge Diagnosis (1) Sepsis: Status: Acute (2) Acute on chronic hypoxic respiratory failure: Status: Acute DS: Summary Hospital Course Hospital Course: HPI from admission H&P: Pt is a 69-year-old male with a PMH significant for?COPD on p.r.n. home O2, HFpEF on digoxin, CAD, paroxysmal AFib not on anticoagulation due to hx of falls, pulmonary hypertension, and lung nodules who presents to the ED from [facility] for evaluation of SOB, hypoxia, and difficulty breathing. Pt was recently admitted to the hospital on 11/13-11/17 for COPD and CHF exacerbations with likely underlying pneumonia. Was discharged to [facility] on Ceftin x5 days which is set to be completed tomorrow. Staff at [facility] report they found pt hypoxic and requiring 6 L NC to maintain saturation of 90%. Pt was initially placed on rescue CPAP in the ED and then transitioned to high-flow. Pt continues to have increased work of breathing and complains that he ?can't breathe?. Pt otherwise is a limited historian and simply repeats that he is having difficulty. In the ED pt was febrile up to 101.4, tachycardic up to 134, and tachypneic up to 24. EMS found pt satting at 90% on 6 L NC at facility. Pt was placed on rescue CPAP in the ED and eventually transitioned to high-flow. Labs were significant for testing positive for influenza type a, leukocytosis of 11.8, and magnesium 1.5. Stable normocytic anemia. Renal function WNL. Hepatic function WNL. Serial troponins flat 27.5 and 26.8. BNP elevated at 1022, but similar to previous and at baseline. Procalcitonin 0.11. UA negative for UTI. CXR showed no active superimposed disease, but showed COPD, right upper lobe scarring, and nodular opacity of left upper lobe suspected of neoplasm. EKG demonstrated AFib with RVR of 105, and ST depressions in anterolateral leads. Pt was treated with Lasix, Solu-Medrol, fentanyl, Tylenol, magnesium sulfate, vancomycin, cefepime, and Tamiflu. Pt will be admitted to the hospital for treatment and further evaluation of acute on chronic hypoxic respiratory failure in the setting of COPD exacerbation secondary to influenza type A infection. Hospital Course: Patient was started on Tamiflu as well as systemic steroids and scheduled bronchodilators. Over the course of 3 days, the patient's symptoms have improved. He is tolerating 2 L of supplemental oxygen. His wheezing has improved. He will be transitioned to prednisone for 5 more days and to complete a course of Tamiflu. Patient was previously being treated for community-acquired pneumonia and has completed his treatment while in the hospital. Patient also had intermittent AFib with RVR which resolved with his baseline oral medications. Patient also has lung nodules diagnosis during the previous hospitalization and this should be followed up as an outpatient. Patient's final discharge diagnoses 1. Acute on chronic respiratory failure with hypoxia 2. Acute COPD exacerbation due to underlying influenza URI 3. Intermittent AFib with RVR 4. Viral sepsis 5. Acute lactic acidosis 6. Chronic HFpEF 7. Hyperlipidemia Time Attestation Discharge Coordination Time (in mins): 40 Quality: Safe Use of Opioids Does Pt have an Active Cancer Diagnosis on the Problem List?: No Quality: Stroke Does the patient have a stroke diagnosis?: No Physical Exam Vital Signs: Vital Signs: Last Vital Signs Temp 98.5 F 11/24/24 11:07 Pulse 69 11/24/24 11:07 Resp 16 11/24/24 11:07 BP 125/67 11/24/24 11:07 Pulse Ox 94 11/24/24 11:07 O2 Del Method Nasal Cannula 11/24/24 11:07 O2 Flow Rate 2 11/24/24 11:07 Oxygen Flow Rate 7 11/21/24 08:26 BMI result Body Mass Index 19.9 Const: Other: Awake and alert, frail looking Diminished breath sounds but no accessory muscle use S1-S2, irregular Alert and oriented x3 DS: Data Data Completed and Pending Completed studies during hospitalization [Text1]: Procedures Detoxification Services for Substance Abuse Treatment (10/19/20) Drainage of Right Pleural Cavity, Percutaneous Approach (04/12/24) Labs on day of discharge: Laboratory Results - last 24 hr 11/24/24 06:56 WBC 18.2 H RBC 3.80 L Hgb 11.6 L Hct 35.6 L MCV 93.7 MCH 30.5 MCHC 32.6 RDW 17.7 H Plt Count 229 MPV 10.4 Absolute Nucleated RBC 0.000 Nucleated RBC % (auto) 0.0 Sodium 137 Potassium 4.8 Chloride 104 Carbon Dioxide 27 Anion Gap 11 L BUN 37 H Creatinine 0.70 Estim Creat Clear Calc 82.4 Estimated GFR > 60 Random Glucose 125 H Calcium 8.4 Magnesium 2.1 Preliminary micro results at discharge 11/21/24 08:44 Blood Culture - Preliminary Blood - Venous No growth after 48 hours. 11/21/24 08:37 Blood Culture - Preliminary Blood - Venous No growth after 48 hours. Discharge Plan Discharge Anticipated Discharge Date/Time: 11/24/24 13:00 Patient Disposition: Xfer SNF Discharge Diagnosis: viral sepsis, pneumonia Referrals: [facility] [Outside] - 1 Week Kym Sebastian MD [Primary Care Provider] - 1 Week Discharge Medications: New oseltamivir [Tamiflu] 75 mg capsule 75 mg PO BID Qty: 3 0RF Continued atorvastatin 20 mg tablet 20 mg PO DAILY Qty: 90 3RF furosemide 20 mg tablet 20 mg PO DAILY PRN (Reason: for edema) Qty: 90 3RF digoxin 125 mcg (0.125 mg) tablet 125 mcg PO DAILY Qty: 90 3RF thiamine HCl (vitamin B1) [Vitamin B-1] 100 mg Tablet 100 mg PO DAILY cholecalciferol (vitamin D3) [Vitamin D3] 25 mcg (1,000 unit) Capsule 25 mcg PO DAILY famotidine 20 mg Tablet 20 mg PO DAILY Qty: 30 0RF acetaminophen 325 mg Tablet 650 mg PO Q6H PRN (Reason: Pain) magnesium hydroxide [Milk of Magnesia] 400 mg/5 mL Suspension 30 ml PO DAILY PRN (Reason: Constipation) bisacodyl [Dulcolax (bisacodyl)] 10 mg Suppository 10 mg ID Q3D PRN (Reason: Constipation) Rx Instructions: If no BM and M.O.M ineffective. Fleet Enema 19-7 gram/118 mL Enema 118 ml ID DAILY PRN (Reason: Constipation) albuterol sulfate 90 mcg/actuation HFA aerosol inhaler 2 puff inhalation Q6H PRN (Reason: shortness of breath or wheezing) fluticasone furoate-vilanterol [Breo Ellipta] 200-25 mcg/dose blister with device 1 inh inhalation DAILY prednisone 20 mg tablet 40 mg PO DAILY Qty: 10 0RF metoprolol tartrate 50 mg Tablet 50 mg PO BID Qty: 0 0RF Protocol: Hold for SBP/HR < HOLD for SBP < : 90 HOLD for HR < : 60 aspirin 81 mg tablet,delayed release (DR/EC) 81 mg PO DAILY Discontinued cefuroxime axetil 500 mg tablet 500 mg PO BID Qty: 10 0RF Discharge Orders: Discharge Order (Routine); Ordered 11/24/24 Ordered By: Minor Gutierrez Diet: Advance to usual diet Activity on Discharge: As tolerated Stand Alone Forms: Patient Portal Discharge page Print Language: Frisian Care Plan Goals: To stay healthy and out of the hospital. Health Concerns: see discharge summary Plan of Treatment: see discharge summary Assessment: see discharge summary
--- NOTE | 2024-11-24 12:18 | MHC.CM.PN ---
Pt is medically cleared for discharge back to [facility] at [facility] today, he will transport there via BLS/Jose today.
== END 2024-11-24 15:20 | disposition skilled nursing facility (03) | DRG 871 ==
LOC: HO.ED 17:44 → HO.EDOVER 18:19 → HO.IMC 11-22 16:42
PROVIDERS: Internal Medicine; Physician Assistant; Admitting Provider Student in an Organized Health Care Education/Training Program; Emergency Provider Emergency Medicine Emergency Medical Services; PCP Student in an Organized Health Care Education/Training Program; Visit Provider Family Medicine
DX: A41.89 Other specified sepsis (principal); J10.00 Influenza due to other identified influenza virus with unspecified type of pneumonia; J96.21 Acute and chronic respiratory failure with hypoxia; J44.0 Chronic obstructive pulmonary disease with (acute) lower respiratory infection; J44.1 Chronic obstructive pulmonary disease with (acute) exacerbation; I50.32 Chronic diastolic (congestive) heart failure; I48.19 Other persistent atrial fibrillation; E44.0 Moderate protein-calorie malnutrition; Z68.1 Body mass index [BMI] 19.9 or less, adult; R64 Cachexia; E78.5 Hyperlipidemia, unspecified; I27.20 Pulmonary hypertension, unspecified; Z66 Do not resuscitate; D64.9 Anemia, unspecified; R91.8 Other nonspecific abnormal finding of lung field; Z99.81 Dependence on supplemental oxygen; I25.10 Atherosclerotic heart disease of native coronary artery without angina pectoris; Z20.822 Contact with and (suspected) exposure to COVID-19; Z87.891 Personal history of nicotine dependence; Z79.51 Long term (current) use of inhaled steroids; Z79.82 Long term (current) use of aspirin; Z79.899 Other long term (current) drug therapy
CPT/HCPCS: 0241U; 36415; 71045; 80048; 80076; 81003; 82803; 83605; 83735; 83880; 84145; 84484; 85025; 85027; 87040; 93005; 94640; 97162; 99285; J0131; J0692; J1650; J1940; J2270; J2405; J2919; J3010; J3371; J3475

== ENCOUNTER → 2024-11-21 08:27 | Outpatient (BNV) | payer MEDICARE, MEDICAID, SELFPAY | PROVIDERS: Emergency Provider Emergency Medicine Emergency Medical Services; PCP Student in an Organized Health Care Education/Training Program; Visit Provider Radiology Diagnostic Radiology | DX: R91.8 Other nonspecific abnormal finding of lung field (principal); J44.9 Chronic obstructive pulmonary disease, unspecified; I70.0 Atherosclerosis of aorta; Z95.1 Presence of aortocoronary bypass graft | CPT/HCPCS: 71045 ==

== ENCOUNTER → 2024-11-21 17:50 | Outpatient (BNV) | payer MEDICARE, MEDICAID, SELFPAY | PROVIDERS: Admitting Provider Student in an Organized Health Care Education/Training Program; Emergency Provider Emergency Medicine Emergency Medical Services; PCP Student in an Organized Health Care Education/Training Program; Visit Provider Student in an Organized Health Care Education/Training Program | DX: A41.89 Other specified sepsis (principal); J96.21 Acute and chronic respiratory failure with hypoxia; I25.10 Atherosclerotic heart disease of native coronary artery without angina pectoris | CPT/HCPCS: 99223; 99232; 99239; 99499 ==

== ENCOUNTER 2024-11-26 20:19 | Emergency (ER) | payer MEDICARE, MEDICAID, SELFPAY ==
--- NOTE | ~2024-11-26 | XR_ITS ---
CLINICAL HISTORY: sob 1 view chest x-ray Comparison: CR/SR - XR CHEST 1V - 11/21/24 09:35 EST Findings: Left basilar infiltrative changes may represent early airspace disease such as pneumonia. Mild diffuse interstitial prominence may represent pulmonary vascular congestion/mild pulmonary edema. Heart size is normal. No acute fracture. IMPRESSION: Left basilar infiltrative changes may represent early airspace disease such as pneumonia. Mild diffuse interstitial prominence may represent pulmonary vascular congestion/mild pulmonary edema. This document has been electronically signed by: Carina Molina MD on 11/26/2024 21:34:49
[2024-11-26 20:34] VITALS: BP 130/72; BP 159/90; PULSE 62; PULSE 88; RESP 26; TEMP 36.4; O2SAT 99; BMI 16.7
--- NOTE | 2024-11-26 20:49 | ED_ITS ---
HPI - SOB/Dyspnea General Chief Complaint: Dyspnea Stated Complaint: difficulty breathing hx rsv Time Seen by Provider: 11/26/24 20:39 History of Present Illness HPI Narrative: Patient with PMH significant for?COPD on p.r.n. home O2, HFpEF on digoxin, CAD, paroxysmal AFib not on anticoagulation due to hx of falls, pulmonary hypertension, and lung nodules who presents to the ED from [facility] for evaluation of SOB, hypoxia, and difficulty breathing. Patient was just admitted on 11/21 discharged on 11/24 for acute on chronic hypoxia respiratory failure with influenza A after arrival patient was saturating 92% at room air and on 2 L 95% Related Data Home Medications ?Medication ?Instructions ?Recorded ?Confirmed aspirin 81 mg tablet,delayed 81 mg PO DAILY 08/12/20 11/21/24 release thiamine HCl (vitamin B1) 100 mg 100 mg PO DAILY 11/05/20 11/21/24 tablet (Vitamin B-1) cholecalciferol (vitamin D3) 25 25 mcg PO DAILY 11/07/20 11/21/24 mcg (1,000 unit) capsule (Vitamin D3) acetaminophen 325 mg tablet 650 mg PO Q6H PRN Pain 11/21/24 11/21/24 albuterol sulfate 90 mcg/actuation 2 puff inhalation Q6H PRN 11/21/24 11/21/24 aerosol inhaler shortness of breath or wheezing bisacodyl 10 mg rectal suppository [address] Q3D PRN Constipation 11/21/24 11/21/24 (Dulcolax (bisacodyl)) fluticasone furoate 200 1 inh inhalation DAILY SEVERE copd 11/21/24 11/21/24 mcg-vilanterol 25 mcg/dose inhalation powder (Breo Ellipta) magnesium hydroxide 400 mg/5 mL 30 ml PO DAILY PRN Constipation 11/21/24 11/21/24 oral suspension (Milk of Magnesia) sodium phosphates 19 gram-[address] DAILY PRN Constipation 11/21/24 11/21/24 gram/118 mL enema (Fleet Enema) Previous Rx's ?Medication ?Instructions ?Recorded atorvastatin 20 mg tablet 20 mg PO DAILY #90 tabs 01/10/24 famotidine 20 mg tablet 20 mg PO DAILY #30 tabs 04/23/24 furosemide 20 mg tablet 20 mg PO DAILY PRN for edema #90 05/03/24 tabs digoxin 125 mcg (0.125 mg) tablet 125 mcg PO DAILY #90 tabs 11/01/24 metoprolol tartrate 50 mg tablet 50 mg PO BID #0 tabs 11/17/24 oseltamivir 75 mg capsule (Tamiflu) 75 mg PO BID 0 days #3 caps 11/24/24 prednisone 20 mg tablet 40 mg (2 x 20 mg) PO DAILY #10 tabs 11/24/24 doxycycline hyclate 100 mg tablet 100 mg PO BID #20 tabs 11/26/24 Allergies Allergy/AdvReac Type Severity Reaction Status Date / Time No Known Allergies Allergy Verified 11/26/24 20:49 [No Known Allergies*] Review of Systems 2 Review of Systems: Yes all other systems are reviewed and are negative [facility] Past Medical History Medical History Influenza A Acute respiratory failure with hypoxia Pleural effusion Pneumonia Respiratory failure with hypoxia History of NV (myocardial infarction) History of seizure due to alcohol withdrawal Atrial fibrillation with slow ventricular response Hypoxemia CAP (community acquired pneumonia) Chronic respiratory failure Atherosclerotic cardiovascular disease CHF (congestive heart failure) CAD (coronary artery disease) History of ischemic cardiomyopathy Tobacco abuse Alcohol abuse Hypercholesteremia COPD (chronic obstructive pulmonary disease) Surgical History History of coronary artery bypass graft x 3 (~2012) History of surgery on lower extremity (~2017) Social History Social History Household Members: None Household Members Other:: CHILDREN,GRANDCHILDREN Housing: Correction Do you presently have visiting nurse or other home services: No Alcohol intake: current Alcohol intake frequency: 3 or more drinks per day Alcohol type: hard liquor Patient Tobacco Use Status: Former Tobacco user Tobacco use type: Cigarette Cigarette Packs Per Day: 0.5 Cigarettes Per Day: 7 Years Smoked: 40+ Smoked in Last 30 Days: Yes e-Cigarette/Vaping Use: Never Used Second Hand Smoke Exposure: No Use of substances other than those prescribed or required for medical reasons: No Advance Directives: Yes Advance Directives on File: Yes Advance Directives Date on File: 11/08/20 Do you have a plan to hurt others: No Plan service: No Current occupational status: retired Physical Exam 2 Vital Signs: Vital Signs: Last Vital Signs Temp 98.2 F 11/27/24 00:41 Pulse 60 11/27/24 00:41 Resp 20 11/27/24 00:41 BP 165/90 H 11/27/24 00:41 Pulse Ox 94 11/27/24 00:41 O2 Del Method Nasal Cannula 11/27/24 00:41 O2 Flow Rate 2 11/27/24 00:41 Oxygen Flow Rate 6 11/26/24 20:34 BMI result Body Mass Index 16.7 Appearance: Alert. Oriented X3. No acute distress. Emaciated Eyes: No pallor or icterus ENT: Pharynx normal. Oral Mucosa moist Neck: Normal inspection. Neck supple. CVS: Normal heart rate and rhythm. Pulses normal. Respiratory: No respiratory distress. Equal air entry bilateral, bilateral wheezing and decreased air entry fine crackles Abdomen: Soft and nontender. Bowel sounds are present, no mass palpable, no CVA tenderness Skin: Skin warm and dry. Normal skin color. Normal skin turgor. Extremities: No lower extremity edema. No calf tenderness Neuro: Oriented X 3. No motor deficit. No sensory deficit.No cerebellar signs , cranial nerves II-XII intact Medications Administered Discontinued Medications Generic Name Dose Route Start Last Admin Trade Name Freq PRN Reason Stop Dose Admin Doxycycline Monohydrate 100 mg 11/26/24 23:04 11/26/24 23:20 Doxycycline Monohydrate 100 Mg Capsule PO 11/26/24 23:05 100 mg ONCE ONE Administration Methylprednisolone Sodium Succinate 125 mg 11/26/24 21:10 11/26/24 21:29 Methylprednisolone Sod Succ 125 Mg/2 Ml Vial IVPUSH 11/26/24 21:11 125 mg ONCE ONE Administration Medical Decision Making Medical Decision Making MDM Narrative: Patient with PMH significant for?COPD on p.r.n. home O2, HFpEF on digoxin, CAD, paroxysmal AFib not on anticoagulation due to hx of falls, pulmonary hypertension, and lung nodules who presents to the ED from [facility] for evaluation of SOB, hypoxia, and difficulty breathing. Patient was admitted for influenza on 11/21 for same after coming to the hospital patient has received albuterol treatment and Solu-Medrol IV feeling better saturating 92% at room air will discharge patient back to [facility] chest x-ray showed atypical infiltrate will prescribe doxycycline Differential Diagnosis Differential Diagnoses: The differential diagnosis associated with the presentation includes Pneumonia/COPD/chronic hypoxic failure/viral syndrome Admission/Observation Consideration of admission/observation: Escalation of care including admission/observation considered Lab Data MDM Lab Attestation statement: I reviewed the patient's lab results. 11/26/24 21:45 11/26/24 21:45 Labs: Lab Results 11/26/24 Range/Units 21:45 WBC 12.8 H (4.8-10.8) X10*3/uL RBC 3.94 L (4.60-5.80) X10*6/uL Hgb 12.1 L (14.0-18.0) g/dl Hct 36.6 L (42.0-52.0) % MCV 92.9 (80.0-98.0) fL MCH 30.7 (27.0-33.0) pg MCHC 33.1 (31.0-36.0) g/dl RDW 17.1 H (11.0-16.0) % Plt Count 215 (160-400) X10*3/uL MPV 10.6 (9.4-12.4) fL Immature Gran % (Auto) 1.6 H (0.0-0.4) % Neut % (Auto) 82.9 H (45-73) % Lymph % (Auto) 7.1 L (20-40) % [place] % (Auto) 8.1 (2-11) % Eos % (Auto) 0.1 (0-4) % Baso % (Auto) 0.2 (0-2) % Lymph # (Auto) 0.9 L (1.2-4.9) X10*3/uL [place] # (Auto) 1.0 (0.1-1.2) X10*3/uL Eos # (Auto) 0.0 (0.0-0.4) X10*3/uL Baso # (Auto) 0.0 (0.0-0.2) X10*3/uL Abs Immat Gran (auto) 0.20 H (0.00-0.03) X10*3/uL Absolute Neuts (auto) 10.6 H (2.0-8.3) x10*3/uL Absolute Nucleated RBC 0.000 (0.0-0.012) X10*3/uL Nucleated RBC % (auto) 0.0 (0.0-0.2) /100WBC Sodium 137 (135-145) mmol/L Potassium 4.7 (3.3-5.1) mmol/L Chloride 105 (96-108) mmol/L Carbon Dioxide 24 (22-29) mmol/L Anion Gap 13 (12-20) BUN 21 H (9-16) mg/dL Creatinine 0.77 (0.5-1.4) mg/dL Estim Creat Clear Calc 68.5 Estimated GFR > 60 Random Glucose 115 (60-115) mg/dL Calcium 8.5 (8.4-10.2) mg/dL Total Bilirubin 0.5 (0.0-1.0) mg/dL AST 32 (5-37) U/L ALT 52 H (0-40) U/L Alkaline Phosphatase 112 (39-117) U/L Troponin I High Sens 10.5 D (<3.5-35.0) ng/L B-Natriuretic Peptide 911 H (<100) pg/mL Total Protein 6.3 L (6.5-8.0) g/dL Albumin 3.3 L (3.5-5.0) g/dL Radiology Impression Discussion of test interpretation with radiology: I have reviewed the radiologist's reading. Radiologist Impression: cc: Kym Sebastian MD; Agustin Hamilton MD~ CLINICAL HISTORY: sob 1 view chest x-ray Comparison: CR/SR - XR CHEST 1V - 11/21/24 09:35 EST Findings: Left basilar infiltrative changes may represent early airspace disease such as pneumonia. Mild diffuse interstitial prominence may represent pulmonary vascular congestion/mild pulmonary edema. Heart size is normal. No acute fracture. IMPRESSION: Left basilar infiltrative changes may represent early airspace disease such as pneumonia. Mild diffuse interstitial prominence may represent pulmonary vascular congestion/mild pulmonary edema. This document has been electronically signed by: Carina Molina MD on 11/26/2024 21:34:49 Discharge Plan Discharge Clinical Impression: Acute exacerbation of chronic obstructive airways disease Patient Disposition: Xfer SNF Transfer Details: Continue nebulizing treatment and prednisone, will give a course of doxycycline for possible pneumonia at the left base of the lung Instructions: COPD (Chronic Obstructive Pulmonary Disease) (ED) Additional Instructions: Continue your medication as prescribed at the time of discharge Antibiotics as prescribed Continue prednisone and nebulizing. Treatment Prescriptions: New doxycycline hyclate 100 mg tablet 100 mg PO BID Qty: 20 0RF No Action atorvastatin 20 mg tablet 20 mg PO DAILY Qty: 90 3RF furosemide 20 mg tablet 20 mg PO DAILY PRN (Reason: for edema) Qty: 90 3RF digoxin 125 mcg (0.125 mg) tablet 125 mcg PO DAILY Qty: 90 3RF thiamine HCl (vitamin B1) [Vitamin B-1] 100 mg Tablet 100 mg PO DAILY cholecalciferol (vitamin D3) [Vitamin D3] 25 mcg (1,000 unit) Capsule 25 mcg PO DAILY famotidine 20 mg Tablet 20 mg PO DAILY Qty: 30 0RF acetaminophen 325 mg Tablet 650 mg PO Q6H PRN (Reason: Pain) magnesium hydroxide [Milk of Magnesia] 400 mg/5 mL Suspension 30 ml PO DAILY PRN (Reason: Constipation) bisacodyl [Dulcolax (bisacodyl)] 10 mg Suppository [address] Q3D PRN (Reason: Constipation) Rx Instructions: If no BM and M.O.M ineffective. Fleet Enema 19-7 gram/118 mL Enema [address] DAILY PRN (Reason: Constipation) albuterol sulfate 90 mcg/actuation HFA aerosol inhaler 2 puff inhalation Q6H PRN (Reason: shortness of breath or wheezing) fluticasone furoate-vilanterol [Breo Ellipta] 200-25 mcg/dose blister with device 1 inh inhalation DAILY prednisone 20 mg tablet 40 mg PO DAILY Qty: 10 0RF oseltamivir [Tamiflu] 75 mg capsule 75 mg PO BID Qty: 3 0RF metoprolol tartrate 50 mg Tablet 50 mg PO BID Qty: 0 0RF Protocol: Hold for SBP/HR < HOLD for SBP < : 90 HOLD for HR < : 60 aspirin 81 mg tablet,delayed release (DR/EC) 81 mg PO DAILY Interventions: ED Discharge Assessment Last Done: 11/27/24 00:41 Discharge Date/Time: 11/27/24 00:42 Print Language: Armenian
[2024-11-26 21:22] VITALS: BP 126/56; PULSE 99; RESP 16; TEMP 36.7; O2SAT 100
[2024-11-26] MEDS: methylPREDNISolone Sod Succ 125 MG/2 ML VIAL IVPUSH (21:29)
[2024-11-26 21:49] LABS: MANUAL DIFF FLAG NO
[2024-11-26 21:51] LABS: Basophils Percent Auto 0.2 % (0-2); Eosinophils Percent Auto 0.1 % (0-4); Hematocrit 36.6 % (42.0-52.0); Hemoglobin 12.1 g/dl (14.0-18.0); Imm Gran Pct Auto 1.6 % (0.0-0.4); Lymphocytes Absolute Auto 0.9 X10*3/uL (1.2-4.9); Lymphocytes Percent Auto 7.1 % (20-40); Mean Corpuscular HGB Conc 33.1 g/dl (31.0-36.0); Mean Corpuscular Hemoglobin 30.7 pg (27.0-33.0); Mean Corpuscular Volume 92.9 fL (80.0-98.0); Mean Platelet Volume 10.6 fL (9.4-12.4); Monocytes Percent Auto 8.1 % (2-11); Neutrophils Absolute Auto 10.6 x10*3/uL (2.0-8.3); Neutrophils Percent Auto 82.9 % (45-73); Platelet Count 215 X10*3/uL (160-400); Red Blood Count 3.94 X10*6/uL (4.60-5.80); Red Cell Distribution Width 17.1 % (11.0-16.0); White Blood Count 12.8 X10*3/uL (4.8-10.8)
[2024-11-26 22:07] LABS: Alanine Aminotransferase 52 U/L (0-40); Albumin Level 3.3 g/dL (3.5-5.0); Alkaline Phosphatase 112 U/L (39-117); Anion Gap 13 (12-20); Aspartate Amino Transferase 32 U/L (5-37); Bilirubin Total 0.5 mg/dL (0.0-1.0); Blood Urea Nitrogen 21 mg/dL (9-16); Calcium 8.5 mg/dL (8.4-10.2); Carbon Dioxide 24 mmol/L (22-29); Chloride 105 mmol/L (96-108); Creatinine Clr Calc Pharmacy 68.5; Estimated Glomerular Filt Rate > 60; Glucose Random 115 mg/dL (60-115); Potassium 4.7 mmol/L (3.3-5.1); Sodium 137 mmol/L (135-145); Total Protein 6.3 g/dL (6.5-8.0)
[2024-11-26 22:13] LABS: B Type Natriuretic Peptide 911 pg/mL (<100)
[2024-11-26 22:14] LABS: Troponin-I High Sensitivity 10.5 ng/L (<3.5-35.0)
[2024-11-26 23:20] VITALS: PULSE 93; RESP 17; O2SAT 94
[2024-11-26] MEDS: Doxycycline Monohydrate 100 MG CAPSULE PO (23:20)
[2024-11-27 00:41] VITALS: BP 165/90; PULSE 60; RESP 20; TEMP 36.8; O2SAT 94
== END 2024-11-27 00:42 | disposition skilled nursing facility (03) ==
PROVIDERS: Emergency Provider Internal Medicine; PCP Student in an Organized Health Care Education/Training Program
DX: J44.1 Chronic obstructive pulmonary disease with (acute) exacerbation (principal); R06.02 Shortness of breath; Z87.891 Personal history of nicotine dependence; Z79.899 Other long term (current) drug therapy; Z99.81 Dependence on supplemental oxygen
CPT/HCPCS: 36415; 71045; 80053; 83880; 84484; 85025; 96374; 99284; J2919

== ENCOUNTER → 2024-11-26 20:59 | Outpatient (BNV) | payer MEDICARE, MEDICAID, SELFPAY | PROVIDERS: Emergency Provider Internal Medicine; PCP Student in an Organized Health Care Education/Training Program; Visit Provider Student in an Organized Health Care Education/Training Program | DX: J18.9 Pneumonia, unspecified organism (principal) | CPT/HCPCS: 71045 ==

== ENCOUNTER 2024-12-07 10:54 | Outpatient (REF) | payer MEDICAID, SELFPAY ==
--- OUTSIDE RECORDS SUMMARY | 2024-12-08 12:30 | XMS_ITS | Encounter Summary ---
Author Organization [employer] Address [address] [place] [address] Care Team Providers Care Social Services Designee Name Role Phone Kym Sebastian MD Primary Care Provider [phone] Reason for Visit * Reason Onset Date Comments Appointment Request 06/29/2024 Encounter Details Date Type Department Care Team ([facility] Contact Info) Description 06/29/2024 Telephone [facility] MEDICINE [address] [place] [address] Kym Sebastian MD [address] [place] [address] Appointment Request Social History Tobacco Use Types [...] and left message requesting call back to [facility] RN upon receipt of message. A no show letter was sent. TC returned to [facility] to determine if they have any other contact number for him and they do not. They report currently seeing pt. For [facility]ci services. Reviewed pt. Archives and pt. Last seen March 2022. Please advise if home care orders can be signed for Vish Mendosa * Telephone Encounter - Carmine Christian - 06/29/2024 3:01 PM EDT Tc from [place] with [facility]ish mendosa was requesting home care orders to be signed but was informed pcpis unable to sign home care orders due to pt not being seen in roughly a year. Arel[facility] is requesting pt have a telephone visit and see what can be done to have home care orders signed. If any questions you can contact A[facility] [phone]. documented in this encounter Plan of Treatment Not on file documented as of this encounter Visit Diagnoses Not on filedocumented in this encounter Care Teams Social Services Designee Relationship Specialty Start Date End Date Kym Sebastian MD [address] [place] [id number] PCP - General Family Medicine 08/02/12 Vish Mendosa 05/25/24 documented as of this encounter
--- OUTSIDE RECORDS SUMMARY | 2024-12-08 12:31 | XMS_ITS | Encounter Summary ---
Author Organization [employer] Address [address] [place] [address] Care Team Providers Care Senior Administrative Assistant Name Role Phone Kym Sebastian MD Primary Care Provider [phone] Reason for Visit * Reason Comments Med Refill Encounter Details Date Type Department Care Team ([facility] st Contact Info) Description 01/07/2024 Refill [facility] CHC MED & PEDS [address] [place], [place] [phone] Kym Sebastian MD [address] [place] [address] Social History Tobacco Use Types Packs/Day Years [...] on filedocumented in this encounter Care Teams Senior Administrative Assistant Relationship Specialty Start Date End Date Kym Sebastian MD [address] [place] [phone] PCP - General Family Medicine 08/02/12 Vish Mendosa 05/25/24 documented as of this encounter
--- OUTSIDE RECORDS SUMMARY | 2024-12-08 12:31 | XMS_ITS | Encounter Summary ---
Author Organization [employer] Address [address] [place] [address] Care Team Providers Care Oxygraph Operator Name Role Phone Kym Sebastian MD Primary Care Provider [phone] Encounter Details Date Type Department Care Team (Late st Contact Info) Description 06/21/2023 Orders Only [facility] CHC MED & PEDS [address] [place] [address] Martina Mcgregor LPN Social History Tobacco Use [...] Blood Count 8.9 4.8 - 10.8 X10*3/uL [facility] Red Blood Count 4.10(L) 4.60 - 5.80 X10*6/uL [facility] Hemoglobin 14.1 14.0 - 18.0 g/dl [facility] Hematocrit 41.5(L) 42.0 - 52.0 % [facility] Mean Corpuscular Volume 101.2(H) 80.0 - 98.0 fL [facility] Mean Corpuscular Hemoglobin 34.4(H) 27.0 - 33.0 pg [facility] Mean Corpuscular HGB Conc 34.0 31.0 - 36.0 g/dl [facility] Red Cell Distribution Width 13.5 11.0 - 16.0 % [facility] Platelet Count 269 160 - 400 X10*3/uL [facility] Mean Platelet Volume 10.2 9.4 - 12.4 fL [facility] Neutrophils Percent Auto 69.9 45 - 73 % [facility] Imm Gran Pct Auto 0.4 0.0 - 0.4 % [facility] Lymphocytes Percent Auto 15.0(L) 20 - 40 % [facility] Monocytes Percent Auto 12.1(H) 2 - 11 % [facility] Eosinophils Percent Auto 1.5 0 - 4 % [facility] Basophils Percent Auto 1.1 0 - 2 % [facility] NRBC Pct Auto 0.0 0.0 - 0.2 /100WBC [facility] Neutrophils Absolute Auto 6.2 2.0 - 8.3 x10*3/uL [facility] Imm Gran Abs Auto 0.04(H) 0.00 - 0.03 X10*3/uL [facility] Lymphocytes Absolute Auto 1.3 1.2 - 4.9 X10*3/uL [facility] Monocytes Absolute Auto 1.1 0.1 - 1.2 X10*3/uL [facility] Eosinophils Absolute Auto 0.1 0.0 - 0.4 X10*3/uL [facility] Basophils Absolute Auto 0.1 0.0 - 0.2 X10*3/uL [facility] NRBC Abs Auto 0.000 0.0 - 0.012 X10*3/uL [facility] 10/22/2023 2:38 PM EST 10/22/2023 2:38 PM EST Generic External Data Provider LAB BLOOD ORDERAB LES Final Result Performing Organization Address [facility] Co de Phone Number [facility] [address] [place] [address] [phone] * (ABNORMAL) Digoxin (10/22/2023 2:38 PM EST) Pathologist [facility] Digoxin <0.2(L) 0.8 - 2.0 ng/mL [facility] Comment:Assay modified to mi nimize interference from aldosteroneantagonists (e.g. spironolactone and canrenone). 10/22/2023 2:38 PM EST 10/22/2023 2:38 PM EST [facility] External Data Provider LAB BLOOD ORDERAB LES Final Result Performing Organization Address [facility]/ZIP Co de Phone Number [facility] [address] [place] [address] [phone] * (ABNORMAL) Comprehensive Metabolic Panel (10/22/2023 2:38 PM EST) Pathologist [facility] Sodium 137 135 - 145 mmol/L [facility] Potassium 3.4 3.3 - 5.1 mmol/L [facility] Chloride 99 96 - 108 mmol/L [facility] Carbon Dioxide 25 22 - 29 mmol/L [facility] Anion Gap 16 12 - 20 [facility] Urea Nitrogen (BUN) 11 9 - 16 mg/dL [facility] Creatinine, Serum 0.84 0.5 - 1.4 mg/dL [facility] Estimated Glomerular Filt Rate >60 [facility] Comment:NOTE: For -Am erican individuals, multiply the result by 1.210.Chronic Kidney Disease: Estimated GFR < 60 mL/min/1.99h3Dqoltd Kidney Disease: Estimated GFR < 15 mL/min/1.73m2 Glucose 87 60 - 115 mg/dL [facility] Calcium 9.5 8.4 - 10.2 mg/dL [facility] Bilirubin, Total 0.5 0.0 - 1.0 mg/dL [facility] Aspartate Amino Transferase 17 5 - 37 U/L [facility] Alanine Aminotransferase 8 0 - 40 U/L [facility] Total Protein 7.6 6.5 - 8.0 g/dL [facility] Albumin Level 4.2 3.5 - 5.0 g/dL [facility] Alkaline Phosphatase 149(H) 39 - 117 U/L [facility] 10/22/2023 2:38 PM EST 10/22/2023 2:38 PM EST us Generic External Data Provider LAB BLOOD ORDERAB LES Final Result Performing Organization Address City/State/[facility] Co de Phone Number [facility] [address] [place] [address] [phone] documented in this encounter Visit Diagnoses Not on filedocumented in this encounter Care Teams Oxygraph Operator Relationship Specialty Start Date End Date Kym Sebastian MD [address] [place] [id number] PCP - General Family Medicine 08/02/12 Vish Mendosa 05/25/24 documented as of this encounter
--- OUTSIDE RECORDS SUMMARY | 2024-12-08 12:31 | XMS_ITS | Encounter Summary ---
Author Organization [employer] Address [address] [place] [address] Care Team Providers Care Cash Application Representative Name Role Phone Kym Sebastian MD Primary Care Provider [phone] Reason for Visit * Reason Comments Med Change Request Encounter Details Date Type Department Care Team ([facility] Contact Info) Description 08/02/2024 Refill [facility] CHC MED & PEDS [address] [place], [place] [phone] Kym Sebastain MD [address] [place] [address] Chronic obstructive pulmonary disease, unspecified COPD type [...] t he electric, gas, oil or water [employer] threatened to shut off services in your [...] (CMS/HCC) documented in this encounter Care Teams Cash Application Representative Relationship Specialty Start Date End Date Kym Sebastian MD [address] [place] [phone] PCP - General Family Medicine 08/02/12 Vish Mendosa 05/25/24 documented as of this encounter
--- OUTSIDE RECORDS SUMMARY | 2024-12-08 12:31 | XMS_ITS | Data Portability ---
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 Name Role Phone SHEEBA LIRA - 2ND FLOOR OTHER Assessment Encounter Date Assessment Date Assessment LastModified by Organization Details LastModified Time 04/04/2018 04/04/2018 04/03/18 WBC 10.3, Hgb 9.9, Hct 29.4, Na 138, K 4.3, BUN 15, Human Resources Analyst 0.62, mag 1.7 in hospital [email or web address] Not available 04/04/2018 09:13:06 04/13/2018 04/13/2018 72: wbc 12.2, hgb 10.6, hct 32.4 glord [...] Organization Details Recorded Time Coronary atheroscl erosis 469923445 Active 2017 triple bypass done in past ABUNDIO SHERMAN [address], [address], [place], [address], [facility] 8 09:22:07 Alcohol abuse 20686885 Active 2017 ABUNDIO SHERMAN [address], [address], [place], [address], [facility] 8 08:51:19 Myocardia l infarctio n 73496557 Active 2017 ABUNDIO SHERMAN [address] [place] [address], [address], [place], [address], [facility] 8 08:51:28 Smoker 00824676 Active 2017 ABUNDIO SHERMAN [address], [address], [place], [address], [facility] 8 08:51:34 Closed fracture of left femur [id number] 44453 Active 2017 bicondyla r fracture DIAMANTE SHERMAN[address], [address], [place], [address], [facility] 8 08:52:57 Ventricul ar tachycard ia 44732281 Active 2017 BRAIN GRIERCHINTANABUNDIO [address] [place] [address], [address], [place], [address], [facility] 8 08:53:17 Atrial fibrillat ion 94331120 Active 2017 BRAIN GRIERCHINTANABUNDIO [address] [place] [address], [address], [place], [address], [facility] 8 08:53:22 Acute exacerbat ion of chronic obstructi ve pulmonary disease 028221324 Active 2017 BRAIN STEVEABUNDIO [address] [place] [address], [address], [place], [address], [facility] 8 08:53:40 Iron deficienc y anemia 46593337 Active 2017 BRAIN STEVE ABUNDIO [address] [place] [address], [address], [place], [address], [facility] 8 08:53:52 Alcoholic hepatitis 531429090 Active 2017 BRAIN WILSON SENIOR APPLICATION SECURITY CONSULTANT [address] [place] [address], [address], [place], [address], [facility] 8 08:54:07 Hypomagne semia 355339718 Active 2017 BRAIN WILSON SENIOR APPLICATION SECURITY CONSULTANT[address], [address], [place], [address], [email or web address] 8 09:30:19 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 Medical [...] 137 mm[Hg] 77 mm[Hg] ABUNDIO SHERMAN [address], [address], [place], [address], [facility] 8 08:50:12 Date Recorded Heart rate Body temperature Provider N andrez and Address Organization Details Last Updated DateTime 04/06/2018 81 /min 98 [degF] Rafael Loera MD [address], [address], [place], [address], [facility] 04/06/2018 12:38:33 Date Recorded Heart rate Body temperature Oxygen saturation Oxygen saturation in Arterial blood by Pulse oximetry Systolic blood pressure Diastolic blood pressure Provider Name and Address Organization Details Last Updated DateTime 8 80 /min 97.3 [degF] 92 % 92 % 106 mm[Hg] 60 mm[Hg] SHONDA LACY [address], [address], [place], [address], [facility] 8 10:34:40 Social History Question Answer Notes LastModified by Organizat ion Details LastModified Time Tobacco Smoking Status Current Every Day Smoker Not Available [facility] 07/30/2020 03:13:20 Do You Have An Advance Directive? Yes FULL CODE [id number] Information not available 07/30/2020 What Is Your Level Of Alcohol Consumption? Heavy At Least A Gallon Of Vodka A Day [id number] Information not available 07/30/2020 Do You Have A Medical Power Of Desk Pen Set Assembler? No [id number] Information not available 07/30/2020 What Was The Date Of Your Most Recent Tobacco Screening? 04/13/2018 [id number] Information not available 07/30/2020 How Much Tobacco Do You Smoke? 1 PPD [id number] Information not available 07/30/2020 Has Tobacco Cessation Counseling Been Provided? Yes [id number] Information not available 07/30/2020 On What Date Was Tobacco Cessation Counseling Provided? 04/13/2018 [id number] Information not available 07/30/2020 How Many Years Have You Smoked Tobacco? 20 [id number] Information not available 07/30/2020 Sex: Unknown Functional Status None recorded. Mental Status None recorded. Family History Nothing Reported. Medical History No medical history recorded. Past Encounters Encounter ID Performer Location Encounter Start Date Encounter Closed Date Diagnosis/Indication Diagnosis SNOMED-CT Code Diagnosis ICD10 Code Diagnosis Note [id number] ABUNDIO SHERMAN [address] [address] 04/04/2018 08:47:06 04/19/2018 16:22:33 Closed fracture of left femur [id number] 2536571 S72.002D PT/OT eval and treatNWB LLE x [...] fall riskmonito r Iron defic iency anemia 23792984 D50.8 iron 325 mg qdmonitor labs Acute exac erbation of chronic obstructive pulmonary disease 421920914 J44.1 oxygen as neededspir mary 18 mcg qdmonitor respirator y status Smoker 56749094 F17.213 nicotine patch 14 mg qdmonitor Alcohol abuse 39096548 F 10.230 folic acid 1 mg qdthiamine 100 mg qdmonitor for withdrawal symptoms Coronary atherosclerosis 406754526 I25.10 atorvastat in 20 mg qdmetoprol ol 75 mg bidwas on ASA but on lovenox at presentmon itor Hypomagnesemia 874458158 E83.42 magnesium oxide 800 mg bidmonitor mag level [id number] Rafael Loera MD [facility] [address] [address] 04/06/2018 12:23:27 04/19/2018 17:40:17 Closed fracture of left femur 2743562997 5530346 S72.8X2A see HPIleft femur fractrure now s/p ORIFfollow ortho recsnon weight bearing x 6 weeks till cleared by orthoPT OT eval and treatmonit or for pain control and constipati onlovenox for DVT prophylaxi s Alcohol abuse 66907523 F 10.10 see abovefall secondary to intoxicati on per report Anemia due to blood loss 509181988 D50.0 monitor cbc and need for txtransfus ed with 2 units pre-op Primary thrombocytopenia 215387849 D69.49 most likely secondary to ETOHmonito r plts in pt on lovenox Atrial fibrillation 4943 6004 I48.0 currently rate controlled with metoprolol 75 mg bidnot candidate for full anticoagul ation due to ETOH and fall hxIf remains off etoh this is to be reassessed 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 will request cards eval notes Coronary atherosclerosis 766685026 I25.10 lipitor 20 mg qdcontinue Alcoholic hepatitis 2358 68007 F10.188 [place] [id number] Lynda Jas [facility] [address] [address] 04/09/2018 09:10:47 04/19/2018 18:06:53 Closed fracture of left femur 0579751482 7719210 S72.8X2A see HPIleft femur fracture now s/p [...] if patient is to resume ETOH use [id number] SHONDA LACY [address] [address] 04/13/2018 10:33:25 04/19/2018 18:31:06 Alcohol abuse 02934159 F10.10 see abovefall secondary to intoxicati on per report Anemia due to blood loss 455386506 D50.0 monitor cbc and need for txtransfus ed with 2 units pre-oplabs stable as of 04/04, refuses further lab work Primary thrombocytopenia 194887011 D69.49 most likely secondary to ETOHPCP to follow Ischemic c ongestive cardiomyopathy 746435479 I25.5 ischemic cardiomyop athy most likely secondary to ETOHd/c summary mentions coreg however med list has metoprolol Coronary atherosclerosis 572219176 I25.10 lipitor 20 mg qdcontinue Alcoholic hepatitis 2358 27175 F10.188 monitor LFTsGI consult prn Closed fra cture of left femur 8214040643 6240152 S72.8X2A see HPIleft femur fracture now s/p [...] Name 04/04/2018 1 [place] [facility] [id number] [facility] 04/06/2018 1 [place] [facility] [id number] [facility] 04/09/2018 1 [place] [facility] [id number] [facility] 04/13/2018 1 [facility] [id number] [facility] Notes Date Note Type Note Provider Name and Address Organization Details Recorded Time 018 text/ht ml A 62 year old male being seen for a initial intake note. Patient presented to [facility] after drinking and fell on his [...] here for rehab. Medical history of smoker, [place], etoh abuse, CAD with CABG, anemia, alcoholic hepatitis and afib. BRAIN WILSON, ABUNDIO [address], [address], [place], [address], [facility] 04/04/2018 09:45:52 018 text/ht ml Patient is a 62 yo male admit from hospital presenting after fall while intoxicated which resulted in left distal femur fracture. Underwent ORIF on 03/28 now with immobilizer in place. Non-weightbearing till cleared by ortho. In hospital patient became tachycardic with elevated temp, concern for sepsis secondary to possible pneumonia treated with levaquin [facility] signficant forciodetohhx V tacha fibthrombocytopeniaanemiatobacco usealcoholic hepatitis admit to facility for continued care and therapy Rafael Loera MD [address] [place] [address], [address], [place], [address], [facility] [employer] 04/06/2018 12:50:38 018 text/ht ml 62 yo male seen for acute rounding visit. Patient refused lovenox injection this morning. Patient states he does not want any needles and says he will continue to refuse this. Explain to patient the importance of anticoagulation following hip fracture and repair and patient states there must be a pill you can use. [facility] wilder marshall, ETOH abuse, cad. Lynda olvera, [facility] 04/09/2018 09:29:01 018 text/ht ml Patient is [...] the xarelto should not be an issue. [facility] signficant forcopdetohhx V tacha fibthrombocytopeniaanemiatobacco usealcoholic hepatitis SHONDA LORD [address], [address], [place], [address], [facility] 04/13/2018 10:56:59
--- OUTSIDE RECORDS SUMMARY | 2024-12-08 12:31 | XMS_ITS | Encounter Summary ---
Author Organization [employer] Address [address] [place] [address] Care Team Providers Care Stringed Instrument Tuner Name Role Phone Kym Sebastian MD Primary Care Provider [phone] Encounter Details Date Type Department Care Team (Late st Contact Info) Description 11/13/2024 Orders Only [facility] External Provider, [facility] Social History Tobacco Use Types Packs/Day [...] EST Narrative 11/15/2024 3:02 PM EST ? [facility] ?[address] ?[place] [address] ? CT Scan Report ? Signed ? Patient: Runions,Noble F ?MR#: [id number] ?? 412 ? : 1955 ?Acct:[id number] ? Age/Sex: 69 / M ?ADM Date: 11/13/24 ? Loc: HO.[facility] ?450-1 ? Attending Dr: Anibal White MD ? Ordering Physician: Anibal White MD ?? Date of Service: 11/15/24 ?? Procedure(s): CT knee LT wo IV con ?? Accession Number(s): [id number] ? cc: Anibal White MD; Kym Sebastian MD ? Report Number: ?? [id number]: Total DLP = ??196.00 mGy-cm ? CLINICAL HISTORY: pain, fall ? 3 views left knee ? Comparison: CR/MT/SR - XR KNEE LT 2V - 11/13/24 [...] DD/ 1459 ? TD/TT: 11/15/24 1459 ? Director Of Preclinical Research: ? Procedure Note Abril Klein - 11/15/[address] [address] [place] Scan Report Signed Patient: Luis MigueledwinaNoble FMR#: [id number] 412 : 6Acct:[id number] Age/Sex: 69 / MADM Date: 11/13/24 Loc: [facility]-[address]: Anibal White MD Ordering Physician: Anibal White MD Date of Service: 11/15/24 Procedure(s): CT knee LT wo IV con Accession Number(s): [id number] cc: Anibal White MD; Kym Sebastian MD Report Number: [id number]: Total DLP = 196.00 mGy-cm CLINICAL HISTORY: pain, fall 3 views left knee Comparison: CR/MT/SR - XR KNEE LT 2V - 11/13/24 [...] 11/15/24 1501 DD/ 1459 TD/TT: 11/15/24 1459 Director Of Preclinical Research: [facility] External Provider IM CT PROCEDURES Final Result * (ABNORMAL) Lactic Acid (11/13/2024 5:25 PM EST) Lactic Acid 6.4(HH) 0.5 - 2.0 mmol/L [facility] Comment:Critical value for t est(s): LACTA Results called to keyanna back by: SYD Person calling: KULWINDERMINC Date: 11/13/24Time: 1848 11/13/2024 5:25 PM EST 11/13/2024 5:30 PM EST us Generic External Data Provider LAB BLOOD ORDERAB LES Final Result [facility] [address] [place] [address] [phone] * (ABNORMAL) Drug Monitoring, Panel 1, Screen, Urine (11/13/2024 5:13 PM EST) Opiate Screen Urine Not Detected Not Detect [facility] Comment:Opiate cut-off is 30 0 ng/mL.Positive results are unconfirmed and should not be used fornon-medical purposes. Barbiturates, Urine Not Detected Not Detect [facility] Comment:Barbiturate cut-off is 200 ng/mL.Positive results are unconfirmed and should not be used fornon-medical purposes. Phencyclidine Screen Urine Not Detected Not Detect [facility] Comment:Phencyclidine cut-of f is 25 ng/mL.Positive results are unconfirmed and should not be used fornon-medical purposes. Amphetamine Screen Urine Not Detected Not Detect [facility] Comment:Amphetamine cut-off is 1000 ng/mL.Positive results are unconfirmed and should not be used fornon-medical purposes. Benzodiazepines Screen Urine Not Detected Not Detect [facility] Comment:Benzodiazepine cut-o ff is 200 ng/mL.Positive results are unconfirmed and should not be used fornon-medical purposes. Cocaine Screen Urine Not Detected Not Detect [facility] Comment:Cocaine cut-off is 3 00 ng/mL.Positive results are unconfirmed and should not be used fornon-medical purposes. Cannabinoid Screen Urine Not Detected Not Detect [facility] Comment:Cannabinoid cut-off is 50 ng/mL.Positive results are unconfirmed and should not be used fornon-medical purposes. Methadone Screen, Urine Not Detected Not Detect ng/mL [facility] Comment:Methadone cut-off is 300 ng/mL.Positive results are unconfirmed and should not be used fornon-medical purposes. FENTANYL URINE POSITIVE(A) Not Detect [facility] Comment:Fentanyl cut-off is 1 ng/mL.Positive results are unconfirmed and should not be used fornon-medical purposes. Oxycodone Urine Screen Not Detected Not Detect ng/mL [facility] Comment:Oxycodone cut-off is 100 ng/mL.Positive results are unconfirmed and should not be used fornon-medical purposes. Buprenorphine Screen Not Detected Not Detect ng/mL [facility] Comment:Buprenorphine cut-of f is 5 ng/mL.Positive results are unconfirmed and should not be used fornon-medical purposes. 11/13/2024 5:13 PM EST 11/13/2024 5:30 PM EST us Generic External Data Provider LAB URINE ORDERAB LES Final Result [facility] [address] [place] [phone] * (ABNORMAL) Urinalysis, Complete, with Reflex to Culture (11/13/2024 5:13 PM EST) Color Urine Yellow [facility] Appearance Urine Cloudy [facility] PH 5.0 5.0 - 9.0 [facility] Glucose Urine UA Negative Negative mg/dL [facility] Urine Blood Trace(A) Negative [facility] Specific [place] - Urine 1.015 1.005 - 1.025 [facility] Urine Protein Negative Neg-Trace mg/dL [facility] Urine Ketones Negative Negative mg/dL [facility] Nitrite Urine Negative Negative [facility] Leukocyte Esterase Urine Moderate (2+)(A) Negative [facility] RBC Urine 3-5(A) 0 - 2 /HPF [facility] Urine WBC >50(A) 0 - 5 /HPF [facility] Urine Squamous Epithelial Cell 0-2 0 - 2 /HPF [facility] Urine Bacteria None Seen None Seen [facility] Hyaline Casts, Urine 0-2 0 - 2 /LPF [facility] 11/13/2024 5:13 PM EST 11/13/2024 5:30 PM EST Narrative [facility] - 11/13/2024 5:39 PM EST Urine, Clean Catch us Generic External Data Provider LAB URINE ORDERAB LES Final Result Performing Organization Address [facility] de Phone Number [facility] [address] [place] [phone] * (ABNORMAL) VENOUS BLOOD GAS (11/13/2024 5:00 PM EST) VBG pH 7.28(L) 7.32 - 7.43 [facility] Comment:METER #: [id number] additional_comment: Cb mojgan VBG PCO2 50 mmHg [facility] Comment:METER #: [id number] additional_comment: Cb miguelangeldj VBG PO2 45 mmHg [facility] Comment:METER #: [id number] additional_comment: Cb miguelangeldmilagro VBG Base Excess -3.4 mmol/L [facility] Comment:METER #: [id number] additional_comment: Cb miguelangeldj VBG HCO3 23 22 - 26 mmol/L [facility] Comment:METER #: [id number] additional_comment: Constantine ulrich O2 Sat, Tej 67.0 % [facility] Comment:METER #: [id number] additional_comment: Constantine ulrich 11/13/2024 5:00 PM EST 11/13/2024 5:05 PM EST us Generic External Data Provider LAB BLOOD ORDERAB LES Final Result Performing Organization Address [facility] Co de Phone Number [facility] [address] [place] [phone] * (ABNORMAL) VENOUS BLOOD GAS (11/13/2024 2:29 PM EST) VBG pH 7.25(L) 7.32 - 7.43 [facility] Comment:METER #: [id number] additional_comment: Cb miguelangeldj VBG PCO2 58 mmHg [facility] Comment:METER #: [id number] additional_comment: Cb igorgadj VBG PO2 27 mmHg [facility] Comment:METER #: [id number] additional_comment: Constantine ulrich VBG Base Excess -1.8 mmol/L [facility] Comment:METER #: [id number] additional_comment: Constantine ulrich VBG HCO3 26 22 - 26 mmol/L [facility] Comment:METER #: [id number] additional_comment: Constantine ulrich O2 Sat, Tej <30.0 % [facility] Comment:METER #: [id number] additional_comment: Constantine ulrich 11/13/2024 2:29 PM EST 11/13/2024 2:37 PM EST us Generic External Data Provider LAB BLOOD ORDERAB LES Final Result [facility] [address] [place] [address] [phone] * XR Hip 2 or 3 Views Right (11/13/2024 1:57 PM EST) Anatomical Region Laterality Modality Lower Extremities, Hip Right Radiograp hic Imaging 11/13/2024 1:57 PM EST Narrative 11/13/2024 2:21 PM EST ? [facility] ?[address] ?[place] [address] ?XRay Report ? Signed ? Patient: Runions,Noble F ?MR#: [id number] ?? 412 ? : 1955 ?Acct:[id number] ? Age/Sex: 69 / M ?ADM Date: 02/10/25 ? Loc: HO.ED ? Attending : ? Ordering Physician: Rafael Longoria MD ?? Date of Service: 11/13/24 ?? Procedure(s): XR hip RT min 2V ?? Accession Number(s): [id number] ? cc: Kym Sebastian MD; Rafael Longoria [...] DD/ 1357 ? TD/TT: 11/13/24 1355 ? Director Of Preclinical Research: ? Procedure Note Latoya, Abril - 11/13/2024 [place] [address] XRay Report Signed Patient: Noble Valencia FMR#: [id number] 412 : 1955cct:[id number] Age/Sex: 69 / MADM Date: 11/13/24 Loc: HO.ED Attending Dr: Ordering Physician: Rafael Longoria MD Date of Service: 11/13/24 Procedure(s): XR hip RT min 2V Accession Number(s): [id number] cc: Kym Sebastian MD; Rafael Longoria MD [...] by: Albaro Avila MD 11/13/2024 02:18 PM [facility] Dictated By: Albrao Avila MD Signed By: <Electronically signed by Albaro Avila MD in OV> 11/13/24 1418 DD/ 1357 TD/TT: 11/13/24 1355 Director Of Preclinical Research: [facility] External Provider IMG XR PROCEDURES Final Result * XR Femur 2+ Views Left (11/13/2024 1:30 PM EST) Anatomical Region Laterality Modality Lower Extremities, Femur Left Radiogr aphic Imaging 11/13/2024 1:30 PM EST Narrative 11/13/2024 2:28 PM EST ? [facility] ?[address] ?[place], [place] [address] ?XRay Report ? Signed ? Patient: Annie,Noble F ?MR#: [id number] ?? 412 ? : 1955 ?Acct:[id number] ? Age/Sex: 69 / M ?ADM Date: 11/13/24 ? Loc: HO.ED ? Attending Dr: ? Ordering Physician: Rafael Longoria MD ?? Date of Service: 11/13/24 ?? Procedure(s): XR femur LT 2V ?? Accession Number(s): [id number] ? cc: Kym Sebastian MD; Rafael Longoria [...] DD/ 1330 ? TD/TT: 11/13/24 1355 ? Director Of Preclinical Research: ? Procedure Note Donotvickyter, Image - 11/13/[address] [address] XRay Report Signed Patient: Noble Valencia FMR#: [id number] 412 : 6Acct:[id number] Age/Sex: 69 / MADM Date: 11/13/24 Loc: HO.ED Attending Dr: Ordering Physician: Rafael Longoria MD Date of Service: 11/13/24 Procedure(s): XR femur LT 2V Accession Number(s): [id number] cc: Kym Sebastian MD; Rafael Longoria MD [...] 11/13/24 1424 DD/ 1330 TD/TT: 11/13/24 1350 Director Of Preclinical Research: [facility] External Provider IMG XR PROCEDURES Final Result * XR Knee 1-2 Views Left (11/13/2024 12:24 PM EST) Anatomical Region Laterality Modality Lower Extremities, Knee Left Radiogra phic Imaging 11/13/2024 12:2 4 PM EST Narrative 11/13/2024 2:27 PM EST ? [facility] ?[address] ?[place] [address] ?XRay Report ? Signed ? Patient: Runions,Noble F ?MR#: [id number] ?? 412 ? : 1955 ?Acct:[id number] ? Age/Sex: 69 / M ?ADM Date: 11/13/24 ? Loc: HO.ED ? Attending Dr: ? Ordering Physician: Rafael Longoria MD ?? Date of Service: 11/13/24 ?? Procedure(s): XR knee LT 2V ?? Accession Number(s): [id number] ? cc: Kym Sebastian MD; Rafael Longoria [...] 1422 ? DD/ 1224 ? TD/TT: 11/13/24 [facility] ? Director Of Preclinical Research: ? Procedure Note Donotdonnyinterpreter, Image - 11/13/[address] [address] XRay Report Signed Patient: Noble Valencia FMR#: [id number] 412 : 1955cct:[id number] Age/Sex: 69 / MADM Date: 11/13/24 Loc: HO.ED Attending Dr: Ordering Physician: Rafael Longoria MD Date of Service: 11/13/24 Procedure(s): XR knee LT 2V Accession Number(s): [id number] cc: Kym Sebastian MD; Rafael Longoria MD [...] by: Francisco Odell MD 11/13/2024 02:22 PM [facility] Dictated By: Francisco Odell MD Signed By: <Electronically signed by Francisco Odell MD in OV> 11/13/24 1422 DD/ 1224 TD/TT: 11/13/24 1355 Director Of Preclinical Research: us [facility] External Provider IMG XR PROCEDURES Final Result * XR Pelvis 1-2 Views (11/13/2024 12:24 PM EST) Anatomical Region Laterality Modality Body, Pelvis Radiographic Acacia ging 11/13/2024 12:2 4 PM EST Narrative 11/13/2024 2:21 PM EST ? [facility] ?[address] ?[place] [address] ?XRay Report ? Signed ? Patient: Runions,Noble F ?MR#: [id number] ?? 412 ? : 1955 ?Acct:[id number] ? Age/Sex: 69 / M ?ADM Date: 11/13/24 ? Loc: HO.ED ? Attending Dr: ? Ordering Physician: Rafael Longoria MD ?? Date of Service: 11/13/24 ?? Procedure(s): XR pelvis 1-2V ?? Accession Number(s): [id number] ? cc: Kym Sebastian MD; Rafael Longoria [...] 1418 ? DD/ 1224 ? TD/TT: 11/13/24 9245 ? Director Of Preclinical Research: ? Procedure Note Abril Klein - 11/13/2024 [place] [address] [place] [address] XRay Report Signed Patient: Noble Valencia FMR#: [id number] 412 : 6Acct:[id number] Age/Sex: 69 / MADM Date: 11/13/24 Loc: HO.ED Attending Dr: Ordering Physician: Rafael Longoria MD Date of Service: 11/13/24 Procedure(s): XR pelvis 1-2V Accession Number(s): [id number] cc: Kym Sebastian MD; Rafael Longoria MD [...] 11/13/24 1418 DD/ 1224 TD/TT: 11/13/24 1355 Director Of Preclinical Research: [facility] External Provider IMG XR PROCEDURES Final Result * CTA Chest PE Protocal (11/13/2024 12:20 PM EST) Anatomical Region Laterality Modality Body, Chest Computed Tomogra phy 11/13/2024 12:2 0 PM EST Narrative 11/13/2024 4:34 PM EST ? [facility] ?[address] ?[place] [address] ? CT Scan Report ? Signed ? Patient: Runions,Noble F ?MR#: [id number] ?? 412 ? : 1955 ?Acct:[id number] ? Age/Sex: 69 / M ?ADM Date: 02/10/25 ? Loc: HO.ED ? Attending Dr: ? Ordering Physician: Rafael Longoria MD ?? Date of Service: 11/13/24 ?? Procedure(s): CT angio chest PE protocol ?? Accession Number(s): [id number] ? cc: Kym Sebastian MD; Rafael Longoria MD ? Report Number: ?? [id number]: Total DLP = ?0.00 mGy-cm ?? EXAMINATION: [...] DD/ 1220 ? TD/TT: 11/13/24 1615 ? Director Of Preclinical Research: MSM ? Procedure Note Abril Klein - 11/13/[address] [address] CT Scan Report Signed Patient: Noble Valencia FMR#: [id number] 412 : 6Acct:[id number] Age/Sex: 69 / MADM Date: 11/13/24 Loc: HO.ED Attending Dr: Ordering Physician: Rafael Longoria MD Date of Service: 11/13/24 Procedure(s): CT angio chest PE protocol Accession Number(s): [id number] cc: Kym Sebastian MD; Rafael Longoria MD Report Number: [id number]: Total DLP = 0.00 mGy-cm EXAMINATION: CT [...] 11/13/24 1632 DD/ 1220 TD/TT: 11/13/24 1615 Director Of Preclinical Research: MSM us [facility] External Provider IMG CT PROCEDURES Final Result * CT Cervical Spine w/o Contrast (11/13/2024 12:20 PM EST) Anatomical Region Laterality Modality Spine, C-spine Computed Tomogra phy 11/13/2024 12:2 0 PM EST Narrative 11/13/2024 4:30 PM EST ? [facility] ?[address] ?[place], [place] [address] ? CT Scan Report ? Signed ? Patient: Noble Valencia ?MR#: [id number] ?? 412 ? : 1955 ?Acct:[id number] ? Age/Sex: 69 / M ?ADM Date: 11/13/24 ? Loc: HO.ED ? Attending Dr: ? Ordering Physician: Rafael Longoria MD ?? Date of Service: 11/13/24 ?? Procedure(s): CT cervical spine wo IV con ?? Accession Number(s): [id number] ? cc: Kym Seabstian MD; Rafael Longoria MD ? Report Number: ?? [id number]: Total DLP = 1145.00 mGy-cm ?? EXAMINATION: [...] DD/ 1220 ? TD/TT: 11/13/24 1615 ? Director Of Preclinical Research: ? Procedure Note Abril Klein - 11/13/[address] [address] CT Scan Report Signed Patient: Noble Valencia FMR#: [id number] 412 : 6Acct:[id number] Age/Sex: 69 / MADM Date: 11/13/24 Loc: HO.ED Attending Dr: Ordering Physician: Rafael Longoria MD Date of Service: 11/13/24 Procedure(s): CT cervical spine wo IV con Accession Number(s): [id number] cc: Kym Sebastian MD; Rafael Longoria MD Report Number: [id number]: Total DLP = 1145.00 mGy-cm EXAMINATION: CT [...] 11/13/24 1627 DD/ 1220 TD/TT: 11/13/24 1615 Director Of Preclinical Research: [facility] External Provider IMG CT PROCEDURES Final Result * CT Head w/o Contrast (11/13/2024 12:20 PM EST) Anatomical Region Laterality Modality Head, Neck Computed Tomogra phy 11/13/2024 12:2 0 PM EST Narrative 11/13/2024 4:28 PM EST ? [facility] ?[address] ?[place] [address] ? CT Scan Report ? Signed ? Patient: Runions,Noble F ?MR#: [id number] ?? 412 ? : 1955 ?Acct:[id number] ? Age/Sex: 69 / M ?ADM Date: 11/13/24 ? Loc: HO.ED ? Attending Dr: ? Ordering Physician: Rafael Longoria MD ?? Date of Service: 11/13/24 ?? Procedure(s): CT head/brain wo IV con ?? Accession Number(s): [id number] ? cc: Kym Sebastian MD; Rafael Longoria MD ? Report Number: ?? [id number]: Total DLP = ?0.00 mGy-cm ?? EXAMINATION: [...] DD/ 1220 ? TD/TT: 11/13/24 1615 ? Director Of Preclinical Research: ? Procedure Note Donotuseinterpreter, Image - 11/13/[address] [place] [address] [address] Scan Report Signed Patient: Noble Valencia FMR#: [id number] 412 : 1955cct:[id number] Age/Sex: 69 / MADM Date: 11/13/24 Loc: HO.ED Attending Dr: Ordering Physician: Rafael Longoria MD Date of Service: 11/13/24 Procedure(s): CT head/brain wo IV con Accession Number(s): [id number] cc: Kym Sebastian MD; Rafael Longoria MD Report Number: [id number]: Total DLP = 0.00 mGy-cm EXAMINATION: CT [...] by: Francisco Odell MD 11/13/2024 04:22 PM [facility] Dictated By: Francisco Odell MD Signed By: <Electronically signed by Francisco Odell MD in OV> 11/13/24 1622 DD/ 1220 TD/TT: 11/13/24 1615 Director Of Preclinical Research: [facility] External Provider IMG CT PROCEDURES Final Result documented in this encounter Visit Diagnoses Not on filedocumented in this encounter Care Teams Stringed Instrument Tuner Relationship Specialty Start Date End Date Kym Sebastian MD [address] [place] [phone] PCP - General Family Medicine 08/02/12 Vish [place] 05/25/24 documented as of this encounter
--- OUTSIDE RECORDS SUMMARY | 2024-12-08 12:31 | XMS_ITS | Encounter Summary ---
Author Organization [employer] Address [address] [place] [address] Care Team Providers Care Manager Of Radiology Name Role Phone Kym Sebastian MD Primary Care Provider [phone] Encounter Details Date Type Department Care Team (Late st Contact Info) Description 11/26/2024 Orders Only [facility] External Provider, [facility] Social History Tobacco Use Types Packs/Day [...] Procedure Name Priority Date/Time Associated Diagnosis Comments XR CHEST 1 VIEW Routine 11/26/2024 9:34 PM EST documented in this encounter Results * XR Chest 1 View (11/26/2024 9:34 PM EST) Anatomical Region Laterality Modality Chest Radiographic Acacia ging 11/26/2024 9:34 PM EST Narrative 11/26/2024 9:36 PM EST ? [facility] ?[address] ?[place] [address] ?XRay Report ? Signed ? Patient: Annie,Noble F ?MR#: [id number] ?? 412 ? : 1955 ?Acct:[id number] ? Age/Sex: 69 / M ?ADM Date: 11/26/24 ? Loc: HO.ED ? Attending Dr: ? Ordering Physician: Agustin Hamilton MD ?? Date of Service: 11/26/24 ?? Procedure(s): XR chest 1V ?? Accession Number(s): [id number] ? cc: Kym Sebastian MD; Agustin Hamilton MD ? CLINICAL HISTORY: sob ? 1 view chest x-ray ? Comparison: CR/SR - XR CHEST 1V - 11/21/24 09:35 EST ? Findings: ?? Left basilar infiltrative changes may represent early airspace disease ?? such as pneumonia. Mild diffuse interstitial prominence may represent ?? pulmonary vascular congestion/mild pulmonary edema. ?? Heart size is normal. ?? No acute fracture. ? IMPRESSION: ?? Left basilar infiltrative changes may represent early airspace disease ?? such as pneumonia. Mild diffuse interstitial prominence may represent ?? pulmonary vascular congestion/mild pulmonary edema. ? This document has been electronically signed by: Carina Molina MD on ?? 11/26/2024 21:34:49 ? Dictated By: ?Carina Molina MD ? Signed By: ?<Electronically signed by Carina Molina MD in OV> ?11/26/242135 ? DD/ ? TD/TT: 11/26/244 ? Brine Supervisor: ? Procedure Note Latoya, Image - 11/26/[address] [address] XRay Report Signed Patient: Noble Valencia FMR#: [id number] 412 : 6Acct:[id number] Age/Sex: 69 / MADM Date: 11/26/24 Loc: HO.ED Attending Dr: Ordering Physician: Agustin Hamilton MD Date of Service: 11/26/24 Procedure(s): XR chest 1V Accession Number(s): [id number] cc: Kym Sebastian MD; Agustin Hamilton MD CLINICAL HISTORY: sob 1 view chest x-ray Comparison: CR/SR - XR CHEST 1V - 11/21/24 09:35 EST Findings: Left basilar infiltrative changes may represent early airspace disease such as pneumonia. Mild diffuse interstitial prominence may represent pulmonary vascular congestion/mild pulmonary edema. Heart size is normal. No acute fracture. IMPRESSION: Left basilar infiltrative changes may represent early airspace disease such as pneumonia. Mild diffuse interstitial prominence may represent pulmonary vascular congestion/mild pulmonary edema. This document has been electronically signed by: Carina Molina MD on 11/26/2024 21:34:49 Dictated By: Carina Molina MD Signed By: <Electronically signed by Carina Molina MD in OV> 11/26/242135 DD/ 33 TD/TT: 11/26/242133 Brine Supervisor: [facility] External Provider IMG XR PROCEDURES Edited Result - Final documented in this encounter Visit Diagnoses Not on filedocumented in this encounter Care Teams Manager Of Radiology Relationship Specialty Start Date End Date Kym Sebastian MD [address] [place] [phone] PCP - General Family Medicine 08/02/12 Vish [place] 05/25/24 documented as of this encounter
--- OUTSIDE RECORDS SUMMARY | 2024-12-08 12:31 | XMS_ITS | Clinical Summary ---
Author Organization Unknown Care Team Providers Care Quality Assurance Consultant Name Role Phone JOELLEN COLVIN, MARYLOU Unavailable Unavailable NOHELIA RN, KARLY Unavailable Unavailable MELANIE RN, CORETTA Unavailable Unavailable HAIDER RN, SHAYE Unavailable Unavailable ALONSO RN, AILSSA Unavailable Unavailable ANAHI RN, NOEL Unavailable Unavailfern BARNEY RN, BERRY Unavailable Unavailable GHAZAL OPERATIONS CONTROLLER, JALYN Unavailable Un available LENKA RN, NITHYA Unavailable Unavailfern HERNANDES RN, MICHAEL Unavailable Unavailable JONE RN, YADIRA Unavailable Unavailable ARIAN RN, JAUN Unavailable Unavailable JULIA RN, LEONARDO Unavailable Unavailable SILVIO RN, ASHANTI Unavailable Unavailable ARIAS RN, TIARA Unavailable Unavailable CHRISTOPHER RAON, GUZMAN Unavailable Unavailable LARISSA RN, TIARA Unavailable Unavailable ELE RN, DIRK Unavailable Unavailable ROXANNA RN, GAUTAM Unavailable Unavailable CURET CH, ESTEFANÍA Unavailable Unavailable ANNMARIE OPERATIONS CONTROLLER, STUART Unavailable Unavailable PRIJAIR CH, FAY Unavailable Unavailable NIKITA SALDIVAR, FABIAN Unavailable Unavailfern DEVLIN RN, MEREDITH Unavailable Unavailable INDIGO TELEVISION DIRECTOR, RAMÓN Unavailable Unavailable BHAVNA RN, AUGUSTIN Unavailable Unavailab alberto SIERRA TELEVISION DIRECTOR, MAYA Unavailable Unavailable MARVA, JORGE LUIS Unavailable Unavailable ALEJANDRA RANDLEW, NATIVIDAD Unavailable Unavailable Payers Payer Name Policy Type Policy Number Effective Date Expira tion Date MEDICARE.NGS.HSP [id number] [place] [id number] [place]SP[place] [id number] Problems Condition Name Condition Details Condition Category Status Onset Date Resolution Date Last Treatment Date Treating Clinician Comments CHRONIC RESPIRATORY FAILURE, UNSP W HYPOXIA OR HYPERCAPNIA Active 11-28 00:00: 00 UNSPECIFIED SYSTOLIC (CONGESTIVE) HEART FAILURE Active 11-28 00:00: 00 CHRONIC OBSTRUCTIVE PULMONARY DISEASE, UNSPECIFIED Active 11-28 00:00: 00 PULMONARY HYPERTENSION , UNSPECIFIED Active 11-28 00:00: 00 DYSPNEA, UNSPECIFIED Active 11-28 00:00: 00 PNEUMONIA, UNSPECIFIED ORGANISM Active 11-28 00:00: 00 FLU DUE TO OTH IDENT INFLUENZA VIRUS W OTH RESP MANIFEST Active 11-28 00:00: 00 UNSPECIFIED PROTEIN-MAYUR LISSETTE MALNUTRITION Active 11-28 00:00: 00 UNSPECIFIED ATRIAL FIBRILLATION Active 11-28 00:00: 00 ATHSCL HEART DISEASE OF [place] CORONARY ARTERY W/O ANG PCTRS Active 11-28 00:00: 00 ISCHEMIC CARDIOMYOPAT HY Active 11-28 00:00: 00 VITAMIN D DEFICIENCY, UNSPECIFIED Active 11-28 00:00: 00 REPEATED FALLS Active 11-28 00:00: 00 PAIN IN LEFT KNEE Active 11-28 00:00: 00 LOW BACK PAIN, UNSPECIFIED Active 11-28 00:00: 00 MUSCLE WASTING AND ATROPHY, NEC, MULTIPLE SITES Active 11-28 00:00: 00 ALCOHOL USE, UNSPECIFIED, UNCOMPLICATE D Active 11-28 00:00: 00 DEPENDENCE ON SUPPLEMENTAL OXYGEN Active 11-28 00:00: 00 Allergies, Adverse Reactions, Alerts Allergy Name Allergy Type Status Severity Reaction(s) Onset Date Inactive Date Treating Clinician Comments NO KNOWN ALLERGIES Propensity to adverse reactions Active 11-28 20:31: 17 Medications Ordered Medication Name Filled Medication Name Start Date Stop Date Current Medication? Ordering Clinician Indication Dosage Frequency Signature (SIG) Comments Components oseltamivir 75 mg capsule 11-24 00:00: 00 11-28 00:00 :00 No [id number] Per instruc tions Per instructio ns (route: oral) Med Classific ation: Anti-Infe ctive Agents prednisone 20 mg tablet 11-28 00:00: 00 Yes [id number] BREATHING 2 tablet DAILY 2 tablet DAILY (route: oral) Med Classific ation: Endocrine metoprolol tartrate 100 mg tablet 2-04 00:00: 00 11-28 00:00 :00 No [id number] Per instruc tions TWICE A DAY Per instructio ns TWICE A DAY (route: oral) Med Classific ation: Cardiovas cular Therapy Agents aspirin 81 mg tablet,aayush yed release 11-02 00:00: 00 11-28 00:00 :00 No [id number] Per instruc tions ONCE PER DAY Per instructio ns ONCE PER DAY (route: oral) Med Classific ation: Hematolog ical Agents atorvastati n 20 mg tablet 11-02 00:00: 00 11-28 00:00 :00 No [id number] Per instruc tions EVERY DAY Per instructio ns EVERY DAY (route: oral) Med Classific ation: Cardiovas cular Therapy Agents famotidine 20 mg tablet 11-02 00:00: 00 11-28 00:00 :00 No [id number] Per instruc tions ONCE PER DAY Per instructio ns ONCE PER DAY (route: oral) Med Classific ation: Gastroint estinal Therapy Agents thiamine HCl (vitamin B1) 100 mg tablet 11-02 00:00: 00 11-28 00:00 :00 No [id number] Per instruc tions ONCE DAILY Per instructio ns ONCE DAILY (route: oral) Med Classific ation: Electroly te Balance-N utritiona l Products digoxin 125 mcg (0.125 mg) tablet 11-01 00:00: 00 11-28 00:00 :00 No [id number] Per instruc tions EVERY DAY Per instructio ns EVERY DAY (route: oral) Med Classific ation: Cardiovas cular Therapy Agents Ativan 0.5 mg tablet 11-28 00:00: 00 Yes [id number] ANXIETY 1 tablet EVERY 2 HOURS 1 tablet EVERY 2 HOURS (route: oral) Alternate Route: UNDER THE TONGUE. Med Classific ation: Central Nervous System Agents doxycycline hyclate 100 mg capsule 11-28 00:00: 00 12-07 23:59 :00 No [id number] PNA 1 capsule 2 TIMES DAILY 1 capsule 2 TIMES DAILY (route: oral) Med Classific ation: Anti-Infe ctive Agents Dulcolax (bisacodyl) 10 mg rectal suppository 11-28 00:00: 00 Yes [id number] CONSTIPATIO N 1 supposi tory, rectal DAILY 1 suppositor y, rectal DAILY (route: rectal) Med Classific ation: Gastroint estinal Therapy Agents Levsin 0.125 mg tablet 11-28 00:00: 00 Yes [id number] SECRETIONS 1 tablet EVERY 2 HOURS 1 tablet EVERY 2 HOURS (route: oral) Alternate Route: UNDER THE TONGUE. Med Classific ation: Gastroint estinal Therapy Agents Milk of Magnesia 400 mg/5 mL oral suspension 11-28 00:00: 00 Yes [id number] CONSTIPATIO N 30 mL DAILY 30 mL DAILY (route: oral) Med Classific ation: Gastroint estinal Therapy Agents morphine concentrate 100 mg/5 mL (20 mg/mL) oral solution 11-28 00:00: 00 Yes [id number] SOB, MODERATE TO SEVERE PAIN 4-10 0.25 mL EVERY 2 HOURS 0.25 mL EVERY 2 HOURS (route: oral) Alternate Route: UNDER THE TONGUE. Med Classific ation: Analgesic , Anti-infl ammatory or Antipyret ic oxygen gas for inhalation 11-28 00:00: 00 Yes [id number] HYPOXIA/RES PIRATORY FAILURE 2 Liter O2 - CONTINUOUS 2 Liter O2 - CONTINUOUS (route: inhalation ) Alternate Route: OXYGEN (O2) - NASAL CANNULA. Med Classific ation: Medical Supplies and Durable Medical Equipment (DME) Fleet Enema 19 gram-7 gram/118 mL 11-28 00:00: 00 Yes [id number] CONSTIPATIO N 118 mL DAILY 118 mL DAILY (route: rectal) Med Classific ation: Gastroint estinal Therapy Agents acetaminoph en 325 mg tablet 11-28 00:00: 00 Yes [id number] MILD PAIN 1-3/FEVER 2 tablet EVERY 6 HOURS 2 tablet EVERY 6 HOURS (route: oral) Med Classific ation: Analgesic , Anti-infl ammatory or Antipyret ic ipratropium 0.5 mg-albutero l 2.5 mg/2.5 mL solution for nebulizatio n 11-30 00:00: 00 Yes [id number] SOB DYSPNEA 2.5 mg EVERY 6 HOURS 2.5 mg EVERY 6 HOURS (route: inhalation ) Med Classific ation: Respirato ry Therapy Agents Vital Signs Vital Name Observation Time Observation Value Commen ts Temperature 2024-12-01 09:17:00.000 100.7 [degF] Temperature 2024-11-30 11:31:00.000 98 [degF] Temperature 2024-11-29 15:12:00.000 97.6 [degF] Pulse 2024-12-01 09:17:00.000 90 /min Pulse 2024-11-30 11:31:00.000 99 /min Pulse 2024-11-29 15:12:00.000 85 /min O2 Saturation (%) 2024-11-30 11:31:00.000 94 % O2 Saturation (%) 2024-11-29 15:12:00.000 97 % Respirations 2024-12-01 09:17:00.000 32 /min Respirations 2024-11-30 11:31:00.000 18 /min Respirations 2024-11-29 15:12:00.000 30 /min Systolic Blood Pressure 2024-11-30 11:31:00.000 100 mm [Hg] Systolic Blood Pressure 2024-11-29 15:12:00.000 110 mm [Hg] Diastolic Blood Pressure 2024-11-30 11:31:00.000 46 mm [Hg] Diastolic Blood Pressure 2024-11-29 15:12:00.000 61 mm [Hg] Plan of Treatment Planned Activity Planned Date Details Comments Future Scheduled Test BANQUET FOOD SERVER TO EVALUATE PATIENT, DISEASE PROCESS, SYMPTOMS, AND OTHER CONDITIONS AND DEVELOP A NURSING PLAN OF CARE PART OF THE COMPREHENSIVE PLAN OF CARE DEVELOPMENT PROCESS. [code = BANQUET FOOD SERVER TO EVALUATE PATIENT, DISEASE PROCESS, SYMPTOMS, AND OTHER CONDITIONS AND DEVELOP A NURSING PLAN OF CARE PART OF THE COMPREHENSIVE PLAN OF CARE DEVELOPMENT PROCESS.] Future Scheduled Test RN/DIAMOND SORTER/CH TO EVALUATE PT/CAREGIVER THOUGHTS REGARDING WHAT IS IMPORTANT/MEANINGFUL TO THEM TO IMPROVE QOL AND ENHANCE PATIENT EXPERIENCE WHILE ON HOSPICE SERVICES. [code = RN/DIAMOND SORTER/CH TO EVALUATE PT/CAREGIVER THOUGHTS REGARDING WHAT IS IMPORTANT/MEANINGFUL TO THEM TO IMPROVE QOL AND ENHANCE PATIENT EXPERIENCE WHILE ON HOSPICE SERVICES.] Future Scheduled Test HOSPICE NU RSE TO ASSESS MEDICATION RESPONSE AND INSTRUCT ON SCHEDULE, ACTIONS, PURPOSE, SIDE EFFECTS, COMPLIANCE AND NEED TO REPORT SIDE EFFECTS TO HOSPICE STAFF. [code = HOSPICE NURSE TO ASSESS MEDICATION RESPONSE AND INSTRUCT ON SCHEDULE, ACTIONS, PURPOSE, SIDE EFFECTS, COMPLIANCE AND NEED TO REPORT SIDE EFFECTS TO HOSPICE STAFF.] Future Scheduled Test HOSPICE NU RSE TO MONITOR PATIENT'S PAIN LEVEL AND REPORT INEFFECTIVE PAIN CONTROL TO THE PHYSICIAN. [code = HOSPICE NURSE TO MONITOR PATIENT'S PAIN LEVEL AND REPORT INEFFECTIVE PAIN CONTROL TO THE PHYSICIAN.] Future Scheduled Test HOSPICE NU RSE TO ASSESS NUTRITION AND HYDRATION STATUS [code = HOSPICE NURSE TO ASSESS NUTRITION AND HYDRATION STATUS] Future Scheduled Test HOSPICE NU RSE TO OBSERVE AND ASSESS INTEGUMENTARY STATUS TO IDENTIFY CHANGES AND INTERVENE TO MINIMIZE COMPLICATIONS. SKILLED NURSE TO PROVIDE SKILLED TEACHING OF DISEASE PROCESS MANAGEMENT RELATED TO ALTERED SKIN INTEGRITY TO INCLUDE OFFLOADING, FREQUENT POSITION CHANGES, KEEP SKIN CLEAN AND DRY TO PREVENT SKIN BREAKDOWN AND MINIMIZE FRICTION AND SHEARING. SKILLED NURSE TO REPORT SIGNIFICANT CHANGES IN STATUS TO PHYSICIAN FOR EARLY INTERVENTION. [code = HOSPICE NURSE TO OBSERVE AND ASSESS INTEGUMENTARY STATUS TO IDENTIFY CHANGES AND INTERVENE TO MINIMIZE COMPLICATIONS. SKILLED NURSE TO PROVIDE SKILLED TEACHING OF DISEASE PROCESS MANAGEMENT RELATED TO ALTERED SKIN INTEGRITY TO INCLUDE OFFLOADING, FREQUENT POSITION CHANGES, KEEP SKIN CLEAN AND DRY TO PREVENT SKIN BREAKDOWN AND MINIMIZE FRICTION AND SHEARING. SKILLED NURSE TO REPORT SIGNIFICANT CHANGES IN STATUS TO PHYSICIAN FOR EARLY INTERVENTION.] Future Scheduled Test MEDICAL SO CIAL WORKER TO EVALUATE SOCIAL, EMOTIONAL AND FINANCIAL FACTORS RELATED TO THE PATIENT'S ILLNESS, NEED FOR ADDITIONAL CARE/RESOURCES, ADJUSTMENT TO CARE AND DEVELOP A PLAN OF CARE. [code = SYSTEMS ANALYST DEVELOPER TO EVALUATE SOCIAL, EMOTIONAL AND FINANCIAL FACTORS RELATED TO THE PATIENT'S ILLNESS, NEED FOR ADDITIONAL CARE/RESOURCES, ADJUSTMENT TO CARE AND DEVELOP A PLAN OF CARE.] Future Scheduled Test SOLAR ENERGY SPECIALIST T O CONDUCT SPIRITUAL ASSESSMENT OF PATIENT/FAMILY/CAREGIVER AND DEVELOP A PLAN OF CARE. [code = SOLAR ENERGY SPECIALIST TO CONDUCT SPIRITUAL ASSESSMENT OF PATIENT/FAMILY/CAREGIVER AND DEVELOP A PLAN OF CARE.] Future Scheduled Test HOSPICE NU RSE TO ASSESS EFFECTIVENESS OF CARDIOPULMONARY SYMPTOM RELIEF MEASURES INCLUDING OXYGEN TREATMENT AND COMFORT MODALITIES [code = HOSPICE NURSE TO ASSESS EFFECTIVENESS OF CARDIOPULMONARY SYMPTOM RELIEF MEASURES INCLUDING OXYGEN TREATMENT AND COMFORT MODALITIES] Future Scheduled Test HOSPICE NU RSE TO INSTRUCT REGARDING OXYGEN MANAGEMENT INCLUDE ADMINISTRATION AT 5-6 L/MIN VIA NASAL CANNULA CONTINUOUSLY, CARE OF EQUIPMENT AND SAFETY. [code = HOSPICE NURSE TO INSTRUCT REGARDING OXYGEN MANAGEMENT INCLUDE ADMINISTRATION AT 5-6 L/MIN VIA NASAL CANNULA CONTINUOUSLY, CARE OF EQUIPMENT AND SAFETY.] Future Scheduled Test HOSPICE NU RSE FOR ASSESSMENT OF PATIENT SAFETY, INSTRUCT SAFETY MEASURES APPLICABLE. [code = HOSPICE NURSE FOR ASSESSMENT OF PATIENT SAFETY, INSTRUCT SAFETY MEASURES APPLICABLE.] Future Scheduled Test HOSPICE NU RSE TO OBTAIN O2 SATS VIA PULSE OXIMETER PRN FOR DYSPNEA AND RECERTIFICATION. [code = HOSPICE NURSE TO OBTAIN O2 SATS VIA PULSE OXIMETER PRN FOR DYSPNEA AND RECERTIFICATION.] Future Scheduled Test HOSPICE NU RSE WILL REVIEW, COORDINATE, COLLABORATE WITH FACILITY STAFF AND TRAIN FACILITY STAFF REGARDING THE HOSPICE PATIENTS PLAN OF CARE EVERY VISIT. FACILITY STAFF TO PROVIDE REPORTS ON PATIENTS CONDITION AND PROGRESS, TO HOSPICE AGENCY EVERY VISIT; TO PARTICIPATE IN CARE MANAGEMENT CONFERENCE WITH HOSPICE STAFF EVERY VISIT. HOSPICE STAFF TO PROVIDE ALL CORE SERVICES/PROVISION OF CARE OUTLINED IN THE HOSPICE PLAN OF CARE INCLUDING. ASSISTANCE WITH SHOWERS/BATHING EVERY OPERATIONS CONTROLLER VISIT. ASSISTANCE WITH ALL ADLS PER LINE INSTALLER PLAN OF CARE WOUND CARE ORDERED, TREATMENTS PER INCLUDED IN THE HOSPICE PLAN OF CARE, PAIN AND SYMPTOM MANAGEMENT, MEDICATION MANAGEMENT ADMINISTRATION AND REVIEW RESP FAILURE RELATED TO SYMPTOM MANAGEMENT. EDUCATION ON RESP FAILURE DISEASE PROCESS AND MANAGEMENT [code = HOSPICE NURSE WILL REVIEW, COORDINATE, COLLABORATE WITH FACILITY STAFF AND TRAIN FACILITY STAFF REGARDING THE HOSPICE PATIENTS PLAN OF CARE EVERY VISIT. FACILITY STAFF TO PROVIDE REPORTS ON PATIENTS CONDITION AND PROGRESS, TO HOSPICE AGENCY EVERY VISIT; TO PARTICIPATE IN CARE MANAGEMENT CONFERENCE WITH HOSPICE STAFF EVERY VISIT. HOSPICE STAFF TO PROVIDE ALL CORE SERVICES/PROVISION OF CARE OUTLINED IN THE HOSPICE PLAN OF CARE INCLUDING. ASSISTANCE WITH SHOWERS/BATHING EVERY OPERATIONS CONTROLLER VISIT. ASSISTANCE WITH ALL ADLS PER LINE INSTALLER PLAN OF CARE WOUND CARE ORDERED, TREATMENTS PER INCLUDED IN THE HOSPICE PLAN OF CARE, PAIN AND SYMPTOM MANAGEMENT, MEDICATION MANAGEMENT ADMINISTRATION AND REVIEW RESP FAILURE RELATED TO SYMPTOM MANAGEMENT. EDUCATION ON RESP FAILURE DISEASE PROCESS AND MANAGEMENT ] Future Scheduled Test SKILLED NU RSE FOR OBSERVATION / ASSESSMENT OF SIGNS / SYMPTOMS OF INFECTION [code = SKILLED NURSE FOR OBSERVATION / ASSESSMENT OF SIGNS / SYMPTOMS OF INFECTION] Future Scheduled Test RN MAY PER FORM PRONOUNCEMENT OF PER STATE REGULATION. [code = RN MAY PERFORM PRONOUNCEMENT OF PER STATE REGULATION.] Goal Provider Goal - A NURSING PLAN OF CARE WILL BE ESTABLISHED THAT MEETS THE PATIENT'S NEEDS Goal Provider Goal - PT/FAMILY WILL EXPERIENCE COMFORT KNOWING THAT WHAT MATTERS TO THE PATIENT/FAMILY HAS BEEN IDENTIFIED AND HONORED Goal Provider Goal - MEDICATIONS WILL BE MANAGED APPROPRIATELY EVIDENCED BY STEADY SYMPTOM CONTROL. PATIENT/CAREGIVER WILL VERBALIZE/DEMONSTRATE COMPLIANCE WITH MEDICATION REGIMEN. Goal Provider Goal - PAIN WILL BE MANAGED AT A LEVEL ACCEPTABLE TO THE PATIENT . PATIENT/CAREGIVER WILL VERBALIZE UNDERSTANDING OF PHARMACOLOGIC AND NON-PHARMACOLOGIC PAIN CONTROL Goal Provider Goal - PATIENT/CAREGIVER EXPRESSES INCREASED SENSE OF COMFORT REGARDING NUTRITIONAL STATUS AND DIETARY PLAN. Goal Provider Goal - CHANGES IN SKIN INTEGRITY STATUS WILL BE IDENTIFIED AND REPORTED TO THE PHYSICIAN FOR PROMPT INTERVENTION. PATIENT / CAREGIVER WILL VERBALIZE/DEMONSTRATE ADEQUATE KNOWLEDGE OF INTEGUMENTARY STATUS AND APPROPRIATE MEASURES TO PROMOTE SKIN INTEGRITY AND PREVENT INJURY Goal Provider Goal - A SYSTEMS ANALYST DEVELOPER PLAN OF CARE WILL BE ESTABLISHED. Goal Provider Goal - A SOLAR ENERGY SPECIALIST PLAN OF CARE WILL BE ESTABLISHED. Goal Provider Goal - PATIENT WILL VERBALIZE/DEMONSTRATE REDUCTION OR RELIEF OF CARDIOPULMONARY SYMPTOMS. Goal Provider Goal - PATIENT CAREGIVER WILL VERBALIZE/DEMONSTRATE UNDERSTANDING OF CARE AND MANAGEMENT OF OXYGEN THERAPY IN A SAFE AND EFFECTIVE MANNER. Goal Provider Goal - PATIENT WILL HAVE SAFETY NEEDS MET Goal Provider Goal - O2 LEVELS WILL BE MONITORED APPROPRIATE. Goal Provider Goal - FACILITY STAFF WILL BE TRAINED IN THE HOSPICE PHILOSOPHY OF CARE AND PROVIDING PATIENT CARE ACCORDING TO THE HOSPICE PLAN OF CARE, KNOWLEDGEABLE OF WHEN TO NOTIFY THE [facility]. FACILITY STAFF WILL PARTICIPATE IN CONFERENCES REGARDING HOSPICE PATIENT.CARE COORDINATION BETWEEN FACILITY STAFF AND HOSPICE AGENCY WILL BE ACHIEVED AND MAINTAINED THROUGHOUT PATIENTS HOSPICE SERVICE. Goal Provider Goal - S/S OF INFECTION WILL BE IDENTIFIED AND PHYSICIAN NOTIFIED FOR PROMPT INTERVENTION TO MINIMIZE ASSOCIATED RISKS Goal Provider Goal - RN TO PERFORM PRONOUCEMENT OF PER STATE REGULATION. Reason for Visit PATIENT Encounters Start Date/Time End Date/Time Encounter Type Admission Type Attending Clinicians Care Facility Care Department Encounter ID Discharge Date Discharge Status Discharge Condition Discharge Reason Percent Goals Met 2024-11-28 00:00:00 2024-12-01 00:00:00 Outpatient NEW ADMISSION KARLY [facility] [id number] 2024-12-01 00:00:00 IN A MEDICAL FACILITY, SUCH A HOSPITAL, SENIOR CARE FACILITY (SNF), INTERMEDIA TE CARE FACILITY (ICF), OR FREE-STAND ING HOSPICE PATIENT HH/HSP/PAL - PATIENT 77.55
--- OUTSIDE RECORDS SUMMARY | 2024-12-08 12:31 | XMS_ITS | Encounter Summary ---
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 Name Role Phone Kym Sebastian MD Primary Care Provider [phone] Encounter Details Date Type Department Care Team [...] Procedure Name Priority Date/Time Associated Diagnosis Comments LACTIC ACID LAB USE ONLY Routine 11/21/2024 11:31 AM EST HIGH SENSITIVITY TROPONIN I Routine 11/21/2024 10:52 AM EST XR CHEST 1 VIEW Routine 11/21/2024 9:40 AM EST URINALYSIS WITH REFLEX MICROSCOPIC Routine 11/21/2024 9:29 AM EST HIGH SENSITIVITY TROPONIN I Routine 11/21/2024 9:08 AM EST PROCALCITONIN Routine 11/21/2024 9:07 AM EST MAGNESIUM Routine 11/21/2024 9:07 AM EST LACTIC ACID Routine 11/21/2024 9:07 AM EST HEPATIC FUNCTION PANEL Routine 9:07 AM EST BASIC METABOLIC PANEL Routine 11/21/2024 9:07 AM EST VENOUS BLOOD GAS Routine 11/21/2024 8:46 AM EST SARS COV2/INFLUENZA A/B AND RSV RNA QL NAAT Routine 11/21/2024 8:39 AM EST CBC WITH AUTO DIFFERENTIAL Routine 11/21/2024 8:38 AM EST B TYPE NATRIURETIC PEPTIDE (BNP) Routine 11/21/2024 8:38 AM EST documented in this encounter Results * Lactic Acid (11/21/2024 11:31 AM EST) Lactic Acid 1.2 0.5 - 2.0 mmol/L [facility] 11/21/2024 11:3 1 AM EST 11/21/2024 11:34 AM EST Generic External Data Provider LAB BLOOD ORDERAB LES Final Result Performing Organization Address [facility] de Phone Number [facility] [address] [place] [address] [phone] * High Sensitivity Troponin I (11/21/2024 10:52 AM EST) TROPONIN I HIGH SENSITIVITY 26.8 <3.5 - 35.0 ng/L [facility] Comment:The Malik high sens itivity Troponin-I results should beused in conjunction with other diagnostic information suchas ECG, clinical observations and information, and patientsymptoms to aid in the diagnosis of [place]. 11/21/2024 10:5 2 AM EST 11/21/2024 10:54 AM EST Generic External Data Provider LAB BLOOD ORDERAB LES Final Result Performing Organization Address [facility] de Phone Number [facility] [address] [place] [address] [phone] * XR Chest 1 View (11/21/2024 9:40 AM EST) Anatomical Region Laterality Modality Chest Radiographic Acacia ging 11/21/2024 9:40 AM EST Narrative 11/21/2024 12:56 PM EST ? [facility] ?[address] ?[place] [address] ?XRay Report ? Signed ? Patient: Runions,Noble F ?MR#: [id number] ?? 412 ? : 1955 ?Acct:[id number] ? Age/Sex: 69 / M ?ADM Date: 02/18/25 ? Loc: HO.ED ? Attending Dr: ? Ordering Physician: Mila Mccloud ?? Date of Service: 11/21/24 ?? Procedure(s): XR chest 1V ?? Accession Number(s): [id number] ? cc: Kym Sebastian MD; Mila Mccloud ? EXAMINATION: ?? XR CHEST ? CLINICAL INFORMATION: ?? sob, hypoxia ? COMPARISON: ?? CTPA 11/13/2024. ?? Chest x-ray 04/23/2024, 04/21/2024. ? TECHNIQUE: ?? Frontal view of the chest was obtained. ? FINDINGS: ?? The cardiac, hilar, and mediastinal contours are normal. Prior CABG. ?? Aortic mural calcifications. ? Lungs are diffusely hyperaerated and hyperlucent, consistent with COPD. ?? Vague opacity lateral left upper lobe, and region of known pulmonary ?? nodule. Scarring in the right upper lobe distribution. Lungs otherwise ?? clear. No effusion or pneumothorax. ? No focal osseous or soft tissue abnormality. ? XR/XR chest 1V ?? IMPRESSION: ?? 1. COPD. Right upper lobe scarring. ?? 2. Nodular opacity left upper lobe laterally and region of known ?? suspected neoplasm. ?? 3. No active superimposed disease. ? Electronically signed by: ??Francisco Odell MD ??11/21/2024 12:53 PM EST RP ? Dictated By: ?Francisco Odell MD ? Signed By: ?<Electronically signed by Francisco Odell MD in OV> ?11/21/24 1253 ? DD/ 0940 ? TD/TT: 11/21/24 0944 ? Bridal Sales Consultant: ? Procedure Note Latoya, Image - 11/21/[address] [address] XRay Report Signed Patient: Noble Valencia FMR#: [id number] : 6Acct:[id number] Age/Sex: 69 / MADM Date: 11/21/24 Loc: HO.ED Attending Dr: Ordering Physician: Mila Mccloud Date of Service: 11/21/24 Procedure(s): XR chest 1V Accession Number(s): [id number] cc: Kym Sebastian MD; Mila Mccloud EXAMINATION: XR CHEST CLINICAL INFORMATION: sob, hypoxia COMPARISON: [facility] 11/13/2024. Chest x-ray 04/23/2024, 04/21/2024. TECHNIQUE: Frontal view of the chest was obtained. FINDINGS: The cardiac, hilar, and mediastinal contours are normal. Prior CABG. Aortic mural calcifications. Lungs are diffusely hyperaerated and hyperlucent, consistent with COPD. Vague opacity lateral left upper lobe, and region of known pulmonary nodule. Scarring in the right upper lobe distribution. Lungs otherwise clear. No effusion or pneumothorax. No focal osseous or soft tissue abnormality. XR/XR chest 1V IMPRESSION: 1. COPD. Right upper lobe scarring. 2. Nodular opacity left upper lobe laterally and region of known suspected neoplasm. 3. No active superimposed disease. Electronically signed by: Francisco Odell MD 11/21/2024 12:53 PM EST Dictated By: Francisco Odell MD Signed By: <Electronically signed by Francisco Odell MD in OV> 11/21/24 1253 DD/ 0940 TD/TT: 11/21/24 0944 Bridal Sales Consultant: [facility] External Provider IMG XR PROCEDURES Edited Result - Final * Urinalysis w/reflex microscopic (11/21/2024 9:29 AM EST) Color Urine Yellow [facility] Appearance Urine Clear [facility] PH 5.5 5.0 - 9.0 [facility] Glucose Urine UA Negative Negative mg/dL [facility] Urine Blood Negative Negative [facility] Specific [place] - Urine 1.020 1.005 - 1.025 [facility] Urine Protein Negative Neg-Trace mg/dL [facility] Urine Ketones Negative Negative mg/dL [facility] Nitrite Urine Negative Negative [facility] Leukocyte Esterase Urine Negative Negative [facility] 11/21/2024 9:29 AM EST 11/21/2024 9:39 AM EST Narrative [facility] - 11/21/2024 9:43 AM EST Urine, Clean Catch Generic External Data Provider LAB URINE ORDERAB LES Final Result Performing Organization Address [facility] Co de Phone Number [facility] [address] [place] [address] [phone] * High Sensitivity Troponin I (11/21/2024 9:08 AM EST) TROPONIN I HIGH SENSITIVITY 27.5 <3.5 - 35.0 ng/L [facility] Comment:The Malik high sens itivity Troponin-I results should beused in conjunction with other diagnostic information suchas ECG, clinical observations and information, and patientsymptoms to aid in the diagnosis of MA. 11/21/2024 9:08 AM EST 11/21/2024 9:12 AM EST us Generic External Data Provider LAB BLOOD ORDERAB LES Final Result Performing Organization Address [facility] de Phone Number [facility] [address] [place] [phone] * Procalcitonin (11/21/2024 9:07 AM EST) Procalcitonin 0.11 ng/mL [facility] Comment: Procalcitonin (PCT) Reference Range:PCT greater than 2.0 ng/mL: ??A PCT level above 2.0 ng/mL onthe first day of ICU admission is associated with a highrisk for progression to severe sepsis and/or septic shock.PCT less than 0.5 ng/mL: ??A PCT level below 0.5 ng/mL on thefirst day of ICU admission is associated with a low risk forprogression to severe sepsis and/or septic shock.PCT levels below 0.5 ng/mL do not exclude an infection.Care must be taken in interpreting PCT results fromdifferent laboratories and methodologies.References:[place] [employer]/Society of CriticalCare Medicine Consensus Conference Committee. ??Definitionsfor sepsis and organ failure and guidelines for the use ofinnovative therapies in sepsis. ??Crit Care Pdy6846;20(6):864-874.Wilmar B, Casi COOMBS, Corrie H, et al. ??Calcitoninprecursors are reliable markers of sepsis in a medicalintensive care unit. ??Crit Care Med 2000;363:600-607.Melyssa S, Sara K, Mana C, et al. ??Diagnosticvalue of procalcitonin, interleukin-6 and interleukin-8 incritically ill patients admitted with suspected sepsis. ??AMJ Respir Crit Care Med 2001;164:396-402.US Food and Drug Administration. ??510(k) substantialequivalence determination decision summary for [employer].http://www.accessdata.fda.fov/cdrh_docs/reviews/J110721.pdf.Published October 2004. ??Accessed March 2017. 11/21/2024 9:07 AM EST 11/21/2024 9:12 AM EST Generic External Data Provider LAB BLOOD ORDERAB LES Final Result Performing Organization Address [facility] Co de Phone Number [facility] [address] [place] [phone] * (ABNORMAL) Lactic Acid (11/21/2024 9:07 AM EST) Lactic Acid 3.3(HH) 0.5 - 2.0 mmol/L [facility] Comment:Critical value for t est(s): LACTA Results called to keyanna back by: JOSE DE JESUS Person calling: LEAT Date: 11/21/24Time: 0941 11/21/2024 9:07 AM EST 11/21/2024 9:12 AM EST Generic External Data Provider LAB BLOOD ORDERAB LES Final Result Performing Organization Address [facility] Co de Phone Number [facility] [address] [place] [phone] * (ABNORMAL) Magnesium (11/21/2024 9:07 AM EST) Magnesium 1.5(L) 1.6 - 2.6 mg/dL [facility] 11/21/2024 9:07 AM EST 11/21/2024 9:12 AM EST us Generic External Data Provider LAB BLOOD ORDERAB LES Final Result Performing Organization Address City/[facility]/ZIP Co de Phone Number [facility] [address] [place] [address] [phone] * (ABNORMAL) Basic Metabolic Panel (11/21/2024 9:07 AM EST) Sodium 141 135 - 145 mmol/L [facility] Potassium 4.3 3.3 - 5.1 mmol/L [facility] Chloride 102 96 - 108 mmol/L [facility] Carbon Dioxide 28 22 - 29 mmol/L [facility] Anion Gap 15 12 - 20 [facility] Urea Nitrogen (BUN) 21(H) 9 - 16 mg/dL [facility] Creatinine, Serum 0.84 0.5 - 1.4 mg/dL [facility] Creatinine Clr Calc Pharmacy 68.6 [facility] Comment:eGFR (calculated fro m the MDRD study equation) and eCrCl(calculated from the Cockcroft-Gault equation) are based ondifferent parameters and may not yield comparable results.If eCrCl result is absurd, please check patient'sheight/weight. Estimated Glomerular Filt Rate >60 [facility] Comment:Chronic Kidney Disea se: Estimated GFR < 60 mL/min/1.97d3Tkozlw Kidney Disease: Estimated GFR < 15 mL/min/1.73m2 Glucose 122(H) 60 - 115 mg/dL [facility] Calcium 8.7 8.4 - 10.2 mg/dL [facility] 11/21/2024 9:07 AM EST 11/21/2024 9:12 AM EST us Generic External Data Provider LAB BLOOD ORDERAB LES Final Result Performing Organization Address City/[facility]/ZIP Co de Phone Number [facility] [address] [place] [address] [phone] * Hepatic Function Panel (11/21/2024 9:07 AM EST) Bilirubin, Total 1.0 0.0 - 1.0 mg/dL [facility] Bilirubin, Direct 0.4 0.0 - 0.5 mg/dL [facility] Aspartate Amino Transferase 37 5 - 37 U/L [facility] Alanine Aminotransferase 36 0 - 40 U/L [facility] Total Protein 6.9 6.5 - 8.0 g/dL [facility] Albumin Level 3.8 3.5 - 5.0 g/dL [facility] Alkaline Phosphatase 99 39 - 117 U/L [facility] 11/21/2024 9:07 AM EST 11/21/2024 9:12 AM EST us Generic External Data Provider LAB BLOOD ORDERAB LES Final Result Performing Organization Address City/State/[facility] Co de Phone Number [facility] [address] [place] [phone] * VENOUS BLOOD GAS (11/21/2024 8:46 AM EST) VBG pH 7.43 7.32 - 7.43 [facility] Comment:METER #: [id number] additional_comment: Cb olliea VBG PCO2 39 mmHg [facility] Comment:METER #: [id number] additional_comment: Cb olliea VBG PO2 34 mmHg [facility] Comment:METER #: [id number] additional_comment: Cb olliea VBG Base Excess 2.1 mmol/L [facility] Comment:METER #: [id number] additional_comment: Cb olliea VBG HCO3 26 22 - 26 mmol/L [facility] Comment:METER #: [id number] additional_comment: Cb olliea O2 Sat, Tej 54.0 % [facility] Comment:METER #: [id number] additional_comment: Cb olliea 11/21/2024 8:46 AM EST 11/21/2024 8:52 AM EST Generic External Data Provider LAB BLOOD ORDERAB LES Final Result Performing Organization Address [facility] de Phone Number [facility] [address] [place] [phone] * (ABNORMAL) SARS-CoV-2 RNA, Influenza A/B, and RSV RNA, Ql NAAT (11/21/2024 8:39 AM EST) Pathologist [facility] Influenza A PCR POSITIVE(A) Negative [facility] Influenza B PCR NEGATIVE Negative [facility] Resp Syncy Virus RNA Qual PCR NEGATIVE Negative [facility] SARS COV2 PCR NEGATIVE Negative [facility] Comment:All test results mus t be correlated with clinical findings.Negative results do not preclude SARS-CoV2, influenza Avirus, influenza B virus and/or RSV infectionand should not be used as the sole basis for treatment orother patient management decisions. Negative results must becombined with clinical observations, patient history, andepidemiological information.This test has not been evaluated for monitoring treatment ofinfection.This test has been authorized by the FDA under an EmergencyUse Authorization (EUA) for use by authorized laboratories.Testing performed on the [employer] GeneXpert utilizingreal-time RT-PCR.All SARS CoV2 and positive influenza A/B results arereported to [facility]. 11/21/2024 8:39 AM EST 11/21/2024 8:43 AM EST Generic External Data Provider LAB MICROBIOLOGY - GENERAL ORDERABLES Final Result Performing Organization Address [facility]/ZIP Co de Phone Number [facility] [address] [place] [phone] * (ABNORMAL) B Type Natriuretic Peptide (BNP) (11/21/2024 8:38 AM EST) B Type Natriuretic Peptide 1,022(H) <100 pg/mL [facility] Comment:For those patients w ho are being treated with Natrecor(nesiritide, recombinant BNP), BNP testing should beperformed at least two hours post treatment in order toensure that only endogenous levels of BNP are detected. 11/21/2024 8:38 AM EST 11/21/2024 8:47 AM EST us Generic External Data Provider LAB BLOOD ORDERAB LES Final Result [facility] [address] [place] [address] [phone] * (ABNORMAL) CBC auto differential (11/21/2024 8:38 AM EST) White Blood Count 11.8(H) 4.8 - 10.8 X10*3/uL [facility] Red Blood Count 4.28(L) 4.60 - 5.80 X10*6/uL [facility] Hemoglobin 13.2(L) 14.0 - 18.0 g/dl [facility] Hematocrit 40.8(L) 42.0 - 52.0 % [facility] Mean Corpuscular Volume 95.3 80.0 - 98.0 fL [facility] Mean Corpuscular Hemoglobin 30.8 27.0 - 33.0 pg [facility] Mean Corpuscular HGB Conc 32.4 31.0 - 36.0 g/dl [facility] Red Cell Distribution Width 18.1(H) 11.0 - 16.0 % [facility] Platelet Count 270 160 - 400 X10*3/uL [facility] Mean Platelet Volume 10.5 9.4 - 12.4 fL [facility] Neutrophils Percent Auto 82.0(H) 45 - 73 % [facility] Imm Gran Pct Auto 2.1(H) 0.0 - 0.4 % [facility] Lymphocytes Percent Auto 4.5(L) 20 - 40 % [facility] Monocytes Percent Auto 11.1(H) 2 - 11 % [facility] Eosinophils Percent Auto 0.1 0 - 4 % [facility] Basophils Percent Auto 0.2 0 - 2 % [facility] NRBC Pct Auto 0.0 0.0 - 0.2 /100WBC [facility] Neutrophils Absolute Auto 9.7(H) 2.0 - 8.3 x10*3/uL [facility] Imm Gran Abs Auto 0.25(H) 0.00 - 0.03 X10*3/uL [facility] Lymphocytes Absolute Auto 0.5(L) 1.2 - 4.9 X10*3/uL [facility] Monocytes Absolute Auto 1.3(H) 0.1 - 1.2 X10*3/uL [facility] Eosinophils Absolute Auto 0.0 0.0 - 0.4 X10*3/uL [facility] Basophils Absolute Auto 0.0 0.0 - 0.2 X10*3/uL [facility] NRBC Abs Auto 0.000 0.0 - 0.012 X10*3/uL [facility] 11/21/2024 8:38 AM EST 11/21/2024 8:47 AM EST us Generic External Data Provider LAB BLOOD ORDERAB LES Final Result Performing Organization Address City/State/[facility] Co de Phone Number [facility] [address] [place] [phone] documented in this encounter Visit Diagnoses Not on filedocumented in this encounter Care Teams Cattle Dipper Relationship Specialty Start Date End Date Kym Sebastian MD [address] [place] [phone] PCP - General Family Medicine 08/02/12 [facility] 05/25/24 documented as of this encounter
--- OUTSIDE RECORDS SUMMARY | 2024-12-08 12:31 | XMS_ITS | Clinical Summary ---
Author Organization [employer] Address [address] [facility] [place] [address] Care Team Providers Care Station Manager Name Role Phone Kym Sebastian MD Primary Care Provider [phone] Allergies No known active allergies Medications albuterol [...] Encounters Date Type Department Care Team Description 11/26/2024 Orders Only [facility] External Provider, [facility] 11/21/2024 Orders Only GENERIC EXTERNAL DATA DEPARTMENT Provider, Generic External Data 11/13/2024 Orders Only [facility] External Provider, [facility] 10/10/[address] [facility] [address] [place] [address] Kym Sebastian MD Med Refill 10/09/2024 11:15 AM EST Office Visit [facility] [address] [place] [address] Kym Sebastian MD Chronic obstructive pulmonary disease, unspecified COPD type (CMS/HCC) (Primary Dx); Ischemic congestive cardiomyopathy (CMS/HCC); Alcoholic hepatitis without ascites; Protein-calorie malnutrition, unspecified severity (CMS/HCC) 10/09/2024 Travel 10/06/2024 Telephone [facility] [address] [place] [address] Kym Sebastian MD Chart Prep from Last [...] t he electric, gas, oil or water [employer] threatened to shut off services in your [...] 1 VIEW Routine 11/26/2024 9:34 PM EST LACTIC ACID LAB USE ONLY Routine 11/21/2024 11:31 AM EST HIGH SENSITIVITY TROPONIN I Routine 11/21/2024 10:52 AM EST XR CHEST 1 VIEW Routine 11/21/2024 9:40 AM EST URINALYSIS WITH REFLEX MICROSCOPIC Routine 11/21/2024 9:29 AM EST HIGH SENSITIVITY TROPONIN I Routine 11/21/2024 9:08 AM EST PROCALCITONIN Routine 11/21/2024 9:07 AM EST LACTIC ACID Routine 11/21/2024 9:07 AM EST MAGNESIUM Routine 11/21/2024 9:07 AM EST BASIC METABOLIC PANEL Routine 11/21/2024 9:07 AM EST HEPATIC FUNCTION PANEL Routine 9:07 AM EST VENOUS BLOOD GAS Routine 11/21/2024 8:46 AM EST SARS COV2/INFLUENZA A/B AND RSV RNA QL NAAT Routine 11/21/2024 8:39 AM EST B TYPE NATRIURETIC PEPTIDE (BNP) [...] EST XR FEMUR 2+ VIEWS LEFT Routine 1:30 PM EST XR KNEE 1-2 VIEWS LEFT Routine 12:24 PM EST XR PELVIS 1-2 VIEWS Routine 11/13/2024 1 2:24 PM EST CTA CHEST PE PROTOCAL Routine 11/13/2024 12:[address] CERVICAL SPINE WO CONTRAST Routine 11/13/2024 12:[address] HEAD WO CONTRAST Routine 11/13/2024 1 2:20 PM EST LIPID PANEL, STANDARD Routine 04/02/2022 9:19 AM EDT from Last 3 Months or Most Recently Relevant to Health Maintenance Results * XR Chest 1 View (11/26/2024 9:34 PM EST) Only the most recent of2 resultswithin the time period is included. Anatomical Region Laterality Modality Chest Radiographic Acacia ging 11/26/2024 9:34 PM EST Narrative 11/26/2024 9:36 PM EST ? [facility] ?[address] ?[place] [address] ?XRay Report ? Signed ? Patient: Runions,Noble F ?MR#: [id number] ?? 412 ? : 1955 ?Acct:[id number] ? Age/Sex: 69 / M ?ADM Date: 11/26/24 ? Loc: HO.ED ? Attending Dr: ? Ordering Physician: Agustin Hamilton MD ?? Date of Service: 11/26/24 ?? Procedure(s): XR chest 1V ?? Accession Number(s): [id number] ? cc: Kym Sebastian MD; Agustin Hamilton [...] Molina MD in OV> ?11/26/242135 ? DD/ 33 ? TD/TT: 11/26/242133 ? Youth Care Professional: ? Procedure Note Abril Klein - 11/26/[address] [address] XRay Report Signed Patient: Noble Valencia FMR#: [id number] 412 : 1955cct:[id number] Age/Sex: 69 / MADM Date: 11/26/24 Loc: HO.ED Attending Dr: Ordering Physician: Agustin Hamilton MD Date of Service: 11/26/24 Procedure(s): XR chest 1V Accession Number(s): [id number] cc: Kym Sebastian MD; Agustin Hamilton MD [...] in OV> 11/26/242135 DD/ 33 TD/TT: 11/26/242133 Youth Care Professional: [facility] External Provider IMG XR PROCEDURES Edited Result - Final * Lactic Acid (11/21/2024 11:31 AM EST) Lactic Acid 1.2 0.5 - 2.0 mmol/L [facility] 11/21/2024 11:3 1 AM EST 11/21/2024 11:34 AM EST Generic External Data Provider LAB BLOOD ORDERAB LES Final Result [facility] [address] [place] [phone] * High Sensitivity Troponin I (11/21/2024 10:52 AM EST) Only the most recent of2 resultswithin the time period is included. TROPONIN I HIGH SENSITIVITY 26.8 <3.5 - 35.0 ng/L [facility] Comment:The Malik high sens itivity Troponin-I results should beused in conjunction with other diagnostic information suchas ECG, clinical observations and information, and patientsymptoms to aid in the diagnosis of SC. 11/21/2024 10:5 2 AM EST 11/21/2024 10:54 AM EST us Generic External Data Provider LAB BLOOD ORDERAB LES Final Result Performing Organization Address [facility] Co de Phone Number [facility] [address] [place] [phone] * Urinalysis w/reflex microscopic (11/21/2024 9:29 AM EST) Color Urine Yellow [facility] Appearance Urine Clear [facility] PH 5.5 5.0 - 9.0 [facility] Glucose Urine UA Negative Negative mg/dL [facility] Urine Blood Negative Negative [facility] Specific Baggs - Urine 1.020 1.005 - 1.025 [facility] Urine Protein Negative Neg-Trace mg/dL [facility] Urine Ketones Negative Negative mg/dL [facility] Nitrite Urine Negative Negative [facility] Leukocyte Esterase Urine Negative Negative [facility] 11/21/2024 9:29 AM EST 11/21/2024 9:39 AM EST Narrative [facility] - 11/21/2024 9:43 AM EST Urine, Clean Catch us Generic External Data Provider LAB URINE ORDERAB LES Final Result Performing Organization Address [facility] de Phone Number [facility] [address] [place] [phone] * Procalcitonin (11/21/2024 9:07 AM EST) Procalcitonin 0.11 ng/mL [facility] Comment: Procalcitonin (PCT) Reference Range:PCT greater [...] in interpreting PCT results fromdifferent laboratories and methodologies.References:[place] [employer]/Society of CriticalCare Medicine Consensus Conference Committee. ??Definitionsfor sepsis and organ failure and guidelines for the use ofinnovative therapies in sepsis. ??Crit Care Nte3019;20(6):864-874.Wilmar B, Casi COOMBS, Corrie H, et al. ??Calcitoninprecursors are reliable markers of sepsis in a medicalintensive care unit. ??Crit Care Med 2000;363:600-607.Melyssa S, Sara K, Mana C, et al. ??Diagnosticvalue of procalcitonin, interleukin-6 and interleukin-8 incritically ill patients admitted with suspected sepsis. ??AMJ Respir Crit Care Med 2001;164:396-402.US Food and Drug Administration. ??510(k) substantialequivalence determination decision summary for [facility] PCTLIA.http://www.accessdata.fda.fov/cdrh_docs/reviews/T940795.pdf.Published October 2004. ??Accessed March 2017. 11/21/2024 9:07 AM EST 11/21/2024 9:12 AM EST us Generic External Data Provider LAB BLOOD ORDERAB LES Final Result Performing Organization Address City/[facility] Co de Phone Number [facility] [address] [place] [phone] * (ABNORMAL) Magnesium (11/21/2024 9:07 AM EST) Magnesium 1.5(L) 1.6 - 2.6 mg/dL [facility] 11/21/2024 9:07 AM EST 11/21/2024 9:12 AM EST Generic External Data Provider LAB BLOOD ORDERAB LES Final Result Performing Organization Address [facility] Co de Phone Number [facility] [address] [place] [phone] * (ABNORMAL) Lactic Acid (11/21/2024 9:07 AM EST) Only the most recent of2 resultswithin the time period is included. Lactic Acid 3.3(HH) 0.5 - 2.0 mmol/L [facility] Comment:Critical value for t est(s): LACTA Results called to keyanna back by: JOSE DE JESUS Person calling: LEAT Date: 11/21/24Time: 940 11/21/2024 9:07 AM EST 11/21/2024 9:12 AM EST Generic External Data Provider LAB BLOOD ORDERAB LES Final Result Performing Organization Address [facility] Co de Phone Number [facility] [address] [place] [phone] * Hepatic Function Panel (11/21/2024 9:07 AM EST) Bilirubin, Total 1.0 0.0 - 1.0 mg/dL [facility] Bilirubin, Direct 0.4 0.0 - 0.5 mg/dL [facility] Aspartate Amino Transferase 37 5 - 37 U/L [facility] Alanine Aminotransferase 36 0 - 40 U/L [facility] Total Protein 6.9 6.5 - 8.0 g/dL [facility] Albumin Level 3.8 3.5 - 5.0 g/dL [facility] Alkaline Phosphatase 99 39 - 117 U/L [facility] 11/21/2024 9:07 AM EST 11/21/2024 9:12 AM EST us Generic External Data Provider LAB BLOOD ORDERAB LES Final Result Performing Organization Address [facility] Co de Phone Number [facility] [address] [place] [phone] * (ABNORMAL) Basic Metabolic Panel (11/21/2024 9:07 AM EST) Sodium 141 135 - 145 mmol/L [facility] Potassium 4.3 3.3 - 5.1 mmol/L [facility] Chloride 102 96 - 108 mmol/L [facility] Carbon Dioxide 28 22 - 29 mmol/L [facility] Anion Gap 15 12 - 20 [facility] Urea Nitrogen (BUN) 21(H) 9 - 16 mg/dL [facility] Creatinine, Serum 0.84 0.5 - 1.4 mg/dL [facility] Creatinine Clr Calc Pharmacy 68.6 [facility] Comment:eGFR (calculated fro m the MDRD study equation) and eCrCl(calculated from the Cockcroft-Gault equation) are based ondifferent parameters and may not yield comparable results.If eCrCl result is absurd, please check patient'sheight/weight. Estimated Glomerular Filt Rate >60 [facility] Comment:Chronic Kidney Disea se: Estimated GFR < 60 mL/min/1.74u2Cvphft Kidney Disease: Estimated GFR < 15 mL/min/1.73m2 Glucose 122(H) 60 - 115 mg/dL [facility] Calcium 8.7 8.4 - 10.2 mg/dL [facility] 11/21/2024 9:07 AM EST 11/21/2024 9:12 AM EST us Generic External Data Provider LAB BLOOD ORDERAB LES Final Result [facility] [address] [place] [phone] [phone] * VENOUS BLOOD GAS (11/21/2024 8:46 AM EST) Only the most recent of3 resultswithin the time period is included. VBG pH 7.43 7.32 - 7.43 [facility] Comment:METER #: [id number] additional_comment: Cb bonaa VBG PCO2 39 mmHg [facility] Comment:METER #: [id number] additional_comment: Constantine cortez VBG PO2 34 mmHg [facility] Comment:METER #: [id number] additional_comment: Constantine cortez VBG Base Excess 2.1 mmol/L [facility] Comment:METER #: [id number] additional_comment: Constantine ROPERG HCO3 26 22 - 26 mmol/L [facility] Comment:METER #: [id number] additional_comment: Constantine cortez O2 Sat, Tje 54.0 % [facility] Comment:METER #: [id number] additional_comment: Constantine cortez 11/21/2024 8:46 AM EST 11/21/2024 8:52 AM EST us Generic External Data Provider LAB BLOOD ORDERAB LES Final Result [facility] [address] [place] [phone] * (ABNORMAL) SARS-CoV-2 RNA, Influenza A/B, and RSV RNA, Ql NAAT (11/21/2024 8:39 AM EST) Influenza A PCR POSITIVE(A) Negative [facility] Influenza B PCR NEGATIVE Negative [facility] Resp Syncy Virus RNA Qual PCR NEGATIVE Negative [facility] SARS COV2 PCR NEGATIVE Negative [facility] Comment:All test results mus t be [...] use by authorized laboratories.Testing performed on the [employer] GeneXpert utilizingreal-time RT-PCR.All SARS CoV2 and positive influenza A/B results arereported to [facility]. 11/21/2024 8:39 AM EST 11/21/2024 8:43 AM EST us Generic External Data Provider LAB MICROBIOLOGY - GENERAL ORDERABLES Final Result [facility] [address] [place] [address] [phone] * (ABNORMAL) CBC auto differential (11/21/2024 8:38 AM EST) White Blood Count 11.8(H) 4.8 - 10.8 X10*3/uL [facility] Red Blood Count 4.28(L) 4.60 - 5.80 X10*6/uL [facility] Hemoglobin 13.2(L) 14.0 - 18.0 g/dl [facility] Hematocrit 40.8(L) 42.0 - 52.0 % [facility] Mean Corpuscular Volume 95.3 80.0 - 98.0 fL [facility] Mean Corpuscular Hemoglobin 30.8 27.0 - 33.0 pg [facility] Mean Corpuscular HGB Conc 32.4 31.0 - 36.0 g/dl [facility] Red Cell Distribution Width 18.1(H) 11.0 - 16.0 % [facility] Platelet Count 270 160 - 400 X10*3/uL [facility] Mean Platelet Volume 10.5 9.4 - 12.4 fL [facility] Neutrophils Percent Auto 82.0(H) 45 - 73 % [facility] Imm Gran Pct Auto 2.1(H) 0.0 - 0.4 % [facility] Lymphocytes Percent Auto 4.5(L) 20 - 40 % [facility] Monocytes Percent Auto 11.1(H) 2 - 11 % [facility] Eosinophils Percent Auto 0.1 0 - 4 % [facility] Basophils Percent Auto 0.2 0 - 2 % [facility] NRBC Pct Auto 0.0 0.0 - 0.2 /100WBC [facility] Neutrophils Absolute Auto 9.7(H) 2.0 - 8.3 x10*3/uL [facility] Imm Gran Abs Auto 0.25(H) 0.00 - 0.03 X10*3/uL [facility] Lymphocytes Absolute Auto 0.5(L) 1.2 - 4.9 X10*3/uL [facility] Monocytes Absolute Auto 1.3(H) 0.1 - 1.2 X10*3/uL [facility] Eosinophils Absolute Auto 0.0 0.0 - 0.4 X10*3/uL [facility] Basophils Absolute Auto 0.0 0.0 - 0.2 X10*3/uL [facility] NRBC Abs Auto 0.000 0.0 - 0.012 X10*3/uL [facility] 11/21/2024 8:38 AM EST 11/21/2024 8:47 AM EST us Generic External Data Provider LAB BLOOD ORDERAB LES Final Result Performing Organization Address [facility]/ZIP Co de Phone Number [facility] [address] [place] [phone] * (ABNORMAL) B Type Natriuretic Peptide (BNP) (11/21/2024 8:38 AM EST) B Type Natriuretic Peptide 1,022(H) <100 pg/mL [facility] Comment:For those patients w ho are being treated with Natrecor(nesiritide, recombinant BNP), BNP testing should beperformed at least two hours post treatment in order toensure that only endogenous levels of BNP are detected. 11/21/2024 8:38 AM EST 11/21/2024 8:47 AM EST us Generic External Data Provider LAB BLOOD ORDERAB LES Final Result Performing Organization Address [facility]/ZIP Co de Phone Number [facility] [address] [place] [phone] * CT Kne w/o Contrast Left (11/15/2024 2:59 PM EST) Anatomical Region Laterality Modality Lower Extremities, Knee Left Computed Tomography 11/15/2024 2:59 PM EST Narrative 11/15/2024 3:02 PM EST ? [facility] ?[address] ?[place] [address] ? CT Scan Report ? Signed ? Patient: Runions,Noble F ?MR#: [id number] ?? 412 ? : 1955 ?Acct:[id number] ? Age/Sex: 69 / M ?ADM Date: 11/13/24 ? Loc: HO.IMC ?450-1 ? Attending Dr: Anibal White MD ? Ordering Physician: Anibal White MD ?? Date of Service: 11/15/24 ?? Procedure(s): CT knee LT wo IV con ?? Accession Number(s): [id number] ? cc: Anibal White MD; Kym Sebastian MD ? Report Number: ?? [id number]: Total DLP = ??196.00 mGy-cm ? CLINICAL HISTORY: pain, fall ? 3 views left knee ? Comparison: CR/AR/SR - XR KNEE LT 2V - 11/13/24 [...] 11/15/24 1501 ? DD/ 1459 ? TD/TT: 11/15/241458 ? Youth Care Professional: ? Procedure Note Latoya, Image - 11/15/[address] [address] [address] Scan Report Signed Patient: Noble Valencia FMR#: [id number] 412 : 6Acct:[id number] Age/Sex: 69 / MADM Date: 11/13/24 Loc: [place] [place]: Anibal White MD Ordering Physician: Anibal White MD Date of Service: 11/15/24 Procedure(s): CT knee LT wo IV con Accession Number(s): [id number] cc: Anibal White MD; Kym Sebastian MD Report Number: [id number]: Total DLP = 196.00 mGy-cm CLINICAL HISTORY: pain, fall 3 views left knee Comparison: CR/AR/SR - XR KNEE LT 2V - 11/13/24 [...] 11/15/24 1501 DD/ 1459 TD/TT: 11/15/24 1459 Youth Care Professional: [facility] External Provider IMG CT PROCEDURES Final Result * (ABNORMAL) Urinalysis, Complete, with Reflex to Culture (11/13/2024 5:13 PM EST) Color Urine Yellow [facility] Appearance Urine Cloudy [facility] PH 5.0 5.0 - 9.0 [facility] Glucose Urine UA Negative Negative mg/dL [facility] Urine Blood Trace(A) Negative [facility] Specific Baggs - Urine 1.015 1.005 - 1.025 [facility] Urine Protein Negative Neg-Trace mg/dL [facility] Urine Ketones Negative Negative mg/dL [facility] Nitrite Urine Negative Negative [facility] Leukocyte Esterase Urine Moderate (2+)(A) Negative [facility] RBC Urine 3-5(A) 0 - 2 /HPF [facility] Urine WBC >50(A) 0 - 5 /HPF [facility] Urine Squamous Epithelial Cell 0-2 0 - 2 /HPF [facility] Urine Bacteria None Seen None Seen [facility] Hyaline Casts, Urine 0-2 0 - 2 /LPF [facility] 11/13/2024 5:13 PM EST 11/13/2024 5:30 PM EST Narrative [facility] - 11/13/2024 5:39 PM EST Urine, Clean Catch us Generic External Data Provider LAB URINE ORDERAB LES Final Result [facility] [address] [place] [phone] * (ABNORMAL) Drug Monitoring, Panel 1, Screen, Urine (11/13/2024 5:13 PM EST) Opiate Screen Urine Not Detected Not Detect [facility] Comment:Opiate cut-off is 30 0 ng/mL.Positive results are unconfirmed and should not be used fornon-medical purposes. Barbiturates, Urine Not Detected Not Detect [facility] Comment:Barbiturate cut-off is 200 ng/mL.Positive results are unconfirmed and should not be used fornon-medical purposes. Phencyclidine Screen Urine Not Detected Not Detect [facility] Comment:Phencyclidine cut-of f is 25 ng/mL.Positive results are unconfirmed and should not be used fornon-medical purposes. Amphetamine Screen Urine Not Detected Not Detect [facility] Comment:Amphetamine cut-off is 1000 ng/mL.Positive results are unconfirmed and should not be used fornon-medical purposes. Benzodiazepines Screen Urine Not Detected Not Detect [facility] Comment:Benzodiazepine cut-o ff is 200 ng/mL.Positive results are unconfirmed and should not be used fornon-medical purposes. Cocaine Screen Urine Not Detected Not Detect [facility] Comment:Cocaine cut-off is 3 00 ng/mL.Positive results are unconfirmed and should not be used fornon-medical purposes. Cannabinoid Screen Urine Not Detected Not Detect [facility] Comment:Cannabinoid cut-off is 50 ng/mL.Positive results are unconfirmed and should not be used fornon-medical purposes. Methadone Screen, Urine Not Detected Not Detect ng/mL [facility] Comment:Methadone cut-off is 300 ng/mL.Positive results are unconfirmed and should not be used fornon-medical purposes. FENTANYL URINE POSITIVE(A) Not Detect [facility] Comment:Fentanyl cut-off is 1 ng/mL.Positive results are unconfirmed and should not be used fornon-medical purposes. Oxycodone Urine Screen Not Detected Not Detect ng/mL [facility] Comment:Oxycodone cut-off is 100 ng/mL.Positive results are unconfirmed and should not be used fornon-medical purposes. Buprenorphine Screen Not Detected Not Detect ng/mL [facility] Comment:Buprenorphine cut-of f is 5 ng/mL.Positive results are unconfirmed and should not be used fornon-medical purposes. 11/13/2024 5:13 PM EST 11/13/2024 5:30 PM EST us Generic External Data Provider LAB URINE ORDERAB LES Final Result [facility] [address] [place] [address] [phone] * XR Hip 2 or 3 Views Right (11/13/2024 1:57 PM EST) Anatomical Region Laterality Modality Lower Extremities, Hip Right Radiograp hic Imaging 11/13/2024 1:57 PM EST Narrative 11/13/2024 2:21 PM EST ? [facility] [facility] ?[address] ?[place] [address] ?XRay Report ? Signed ? Patient: Runions,Noble F ?MR#: [id number] ?? 412 ? : 1955 ?Acct:[id number] ? Age/Sex: 69 / M ?ADM Date: 11/13/24 ? Loc: HO.ED ? Attending Dr: ? Ordering Physician: Rafael Longoria MD ?? Date of Service: 11/13/24 ?? Procedure(s): XR hip RT min 2V ?? Accession Number(s): [id number] ? cc: Kym Sebastian MD; Rafael Longoria [...] MD in OV> ?11/13/24 1418 ? DD/ 9277 ? TD/TT: 11/13/24 9624 ? Youth Care Professional: ? Procedure Note Abril Klein - 11/13/[address] [address] XRay Report Signed Patient: Noble Valencia FMR#: [id number] 412 : 6Acct:[id number] Age/Sex: 69 / MADM Date: 11/13/24 Loc: HO.ED Attending Dr: Ordering Physician: Rafael Longoria MD Date of Service: 11/13/24 Procedure(s): XR hip RT min 2V Accession Number(s): [id number] cc: Kym Sebastian MD; Rafael Longoria MD [...] 11/13/24 1418 DD/ 1357 TD/TT: 11/13/24 1355 Youth Care Professional: [facility] External Provider IMG XR PROCEDURES Final Result * XR Femur 2+ Views Left (11/13/2024 1:30 PM EST) Anatomical Region Laterality Modality Lower Extremities, Femur Left Radiogr aphic Imaging 11/13/2024 1:30 PM EST Narrative 11/13/2024 2:28 PM EST ? [facility] ?[address] ?[place] [address] ?XRay Report ? Signed ? Patient: Runions,Noble F ?MR#: [id number] ?? 412 ? : 1955 ?Acct:[id number] ? Age/Sex: 69 / M ?ADM Date: 11/13/ ? Loc: HO.ED ? Attending Dr: ? Ordering Physician: Rafael Longoria MD ?? Date of Service: 11/13/24 ?? Procedure(s): XR femur LT 2V ?? Accession Number(s): [id number] ? cc: Kym Sebastian MD; Rafael Longoria [...] DD/ 1330 ? TD/TT: 11/13/24 1355 ? Youth Care Professional: ? Procedure Note Abril Klein - 11/13/[address] [address] XRay Report Signed Patient: Noble Valencia FMR#: [id number] 412 : 6Acct:[id number] Age/Sex: 69 / MADM Date: 11/13/24 Loc: HO.ED Attending Dr: Ordering Physician: Rafael Longoria MD Date of Service: 11/13/24 Procedure(s): XR femur LT 2V Accession Number(s): [id number] cc: Kym Sebastian MD; Rafael Longoria MD [...] 11/13/24 1424 DD/ 1330 TD/TT: 11/13/24 1355 Youth Care Professional: us [facility] External Provider IMG XR PROCEDURES Final Result * XR Pelvis 1-2 Views (11/13/2024 12:24 PM EST) Anatomical Region Laterality Modality Body, Pelvis Radiographic Acacia ging 11/13/2024 12:2 4 PM EST Narrative 11/13/2024 2:21 PM EST ? [facility] ?[address] ?[place] [address] ?XRay Report ? Signed ? Patient: Runions,Noble F ?MR#: [id number] ?? 412 ? : 1955 ?Acct:[id number] ? Age/Sex: 69 / M ?ADM Date: 11/13/24 ? Loc: HO.ED ? Attending Dr: ? Ordering Physician: Rafael Longoria MD ?? Date of Service: 11/13/24 ?? Procedure(s): XR pelvis 1-2V ?? Accession Number(s): [id number] ? cc: Kym Sebastian MD; Rafael Longoria [...] DD/ 1224 ? TD/TT: 11/13/24 1355 ? Youth Care Professional: ? Procedure Note Donotuseinterpreter, Image - 11/13/2024 [place] [address] XRay Report Signed Patient: Noble Valencia FMR#: [id number] 412 : 6Acct:[id number] Age/Sex: 69 / MADM Date: 11/13/24 Loc: HO.ED Attending Dr: Ordering Physician: Rafael Longoria MD Date of Service: 11/13/24 Procedure(s): XR pelvis 1-2V Accession Number(s): [id number] cc: Kym Sebastian MD; Rafael Longoria MD [...] 11/13/24 1418 DD/ 1224 TD/TT: 11/13/24 1355 Youth Care Professional: [facility] External Provider IMG XR PROCEDURES Final Result * XR Knee 1-2 Views Left (11/13/2024 12:24 PM EST) Anatomical Region Laterality Modality Lower Extremities, Knee Left Radiogra phic Imaging 11/13/2024 12:2 4 PM EST Narrative 11/13/2024 2:27 PM EST ? [facility] ?[address] ?[place] [address] ?XRay Report ? Signed ? Patient: Runions,Noble F ?MR#: [id number] ?? 412 ? : 1955 ?Acct:[id number] ? Age/Sex: 69 / M ?ADM Date: 11/13/24 ? Loc: HO.ED ? Attending Dr: ? Ordering Physician: Rafael Longoria MD ?? Date of Service: 11/13/24 ?? Procedure(s): XR knee LT 2V ?? Accession Number(s): [id number] ? cc: Kym Sebastian MD; Rafael Longoria [...] 1422 ? DD/ 1224 ? TD/TT: 11/13/24 1895 ? Youth Care Professional: ? Procedure Note Donotuseinterpreter, Image - 11/13/[address] [address] XRay Report Signed Patient: Noble Valencia FMR#: [id number] 412 : 1955cct:[id number] Age/Sex: 69 / MADM Date: 11/13/24 Loc: HO.ED Attending Dr: Ordering Physician: Rafael Lognoria MD Date of Service: 11/13/24 Procedure(s): XR knee LT 2V Accession Number(s): [id number] cc: Kym Sebastian MD; Rafael Longoria MD [...] MD 11/13/2024 02:22 PM [facility] Dictated By: Francisco Odell MD Signed By: <Electronically signed by Francisco Odell MD in OV> 11/13/24 1422 DD/ 1224 TD/TT: 11/13/24 1355 Youth Care Professional: us [facility] External Provider IMG XR PROCEDURES Final Result * CTA Chest PE Protocal (11/13/2024 12:20 PM EST) Anatomical Region Laterality Modality Body, Chest Computed Tomogra phy 11/13/2024 12:2 0 PM EST Narrative 11/13/2024 4:34 PM EST ? [facility] ?[address] ?[place], [place] [address] ? CT Scan Report ? Signed ? Patient: Runions,Noble F ?MR#: [id number] ?? 412 ? : 1955 ?Acct:[id number] ? Age/Sex: 69 / M ?ADM Date: 11/13/24 ? Loc: HO.ED ? Attending Dr: ? Ordering Physician: Rafael Longoria MD ?? Date of Service: 11/13/24 ?? Procedure(s): CT angio chest PE protocol ?? Accession Number(s): [id number] ? cc: Kym Sebastian MD; Rafael Longoria MD ? Report Number: ?? [id number]: Total DLP = ?0.00 mGy-cm ?? EXAMINATION: [...] upper lobe subpleural based axial image ?? /. The largest ill-defined nodule left upper [...] By: ?<Electronically signed by Mariano S Becka, in OV> ?11/13/24 1632 ? DD/ 1220 ? TD/TT: 11/13/24 1615 ? Youth Care Professional: MSM ? Procedure Note Abril Klein - 11/13/2024 [place] [address] [facility] [place] [address] CT Scan Report Signed Patient: Noble Valencia FMR#: [id number] 412 : 6Acct:[id number] Age/Sex: 69 / MADM Date: 11/13/24 Loc: HO.ED Attending Dr: Ordering Physician: Rafael Longoria MD Date of Service: 11/13/24 Procedure(s): CT angio chest PE protocol Accession Number(s): [id number] cc: Kym Sebastian MD; Rafael Longoria MD Report Number: [id number]: Total DLP = 0.00 mGy-cm EXAMINATION: CT [...] Mariano Jovel MD 11/13/2024 04:32 PM EST RP Dictated By: Mariano Jovel MD Signed By: <Electronically signed by Mariano Jovel MD in OV> 11/13/24 1632 DD/ 1220 TD/TT: 11/13/24 1615 Youth Care Professional: PAIGE [facility] External Provider IMG CT PROCEDURES Final Result * CT Cervical Spine w/o Contrast (11/13/2024 12:20 PM EST) Anatomical Region Laterality Modality Spine, C-spine Computed Tomogra phy 11/13/2024 12:2 0 PM EST Narrative 11/13/2024 4:30 PM EST ? [facility] ?[address] ?[place] [address] ? CT Scan Report ? Signed ? Patient: Runions,Noble F ?MR#: [id number] ?? 412 ? : 1955 ?Acct:[id number] ? Age/Sex: 69 / M ?ADM Date: 11/13/24 ? Loc: HO.ED ? Attending Dr: ? Ordering Physician: Rafael Longoria MD ?? Date of Service: 11/13/24 ?? Procedure(s): CT cervical spine wo IV con ?? Accession Number(s): [id number] ? cc: Kym Sebastian MD; Rafael Longoria MD ? Report Number: ?? [id number]: Total DLP = 1145.00 mGy-cm ?? EXAMINATION: [...] DD/ 1220 ? TD/TT: 11/13/24 1615 ? Youth Care Professional: ? Procedure Note Donotuseinterpreter, Image - 11/13/[address] [address] [address] Scan Report Signed Patient: Noble Valencia FMR#: [id number] 412 : 6Acct:[id number] Age/Sex: 69 / MADM Date: 11/13/24 Loc: HO.ED Attending Dr: Ordering Physician: Rafael Longoria MD Date of Service: 11/13/24 Procedure(s): CT cervical spine wo IV con Accession Number(s): [id number] cc: Kym Sebastian MD; Rafael Longoria MD Report Number: [id number]: Total DLP = 1145.00 mGy-cm EXAMINATION: CT [...] Francisco Odell MD 11/13/2024 04:27 PM EST RP Dictated By: Francisco Odell MD Signed By: <Electronically signed by Francisco Odell MD in OV> 11/13/24 1627 DD/ 1220 TD/TT: 11/13/24 1615 Youth Care Professional: us [facility] External Provider IMG CT PROCEDURES Final Result * CT Head w/o Contrast (11/13/2024 12:20 PM EST) Anatomical Region Laterality Modality Head, Neck Computed Tomogra phy 11/13/2024 12:2 0 PM EST Narrative 11/13/2024 4:28 PM EST ? [facility] ?[address] ?[place] [address] ? CT Scan Report ? Signed ? Patient: Runedwina,Noble F ?MR#: [id number] ?? 412 ? : 1955 ?Acct:[id number] ? Age/Sex: 69 / M ?ADM Date: 11/13/24 ? Loc: HO.ED ? Attending Dr: ? Ordering Physician: Rafael Longoria MD ?? Date of Service: 11/13/24 ?? Procedure(s): CT head/brain wo IV con ?? Accession Number(s): [id number] ? cc: Kym Sebastian MD; Rafael Longoria MD ? Report Number: ?? [id number]: Total DLP = ?0.00 mGy-cm ?? EXAMINATION: [...] DD/ 1220 ? TD/TT: 11/13/24 1615 ? Youth Care Professional: ? Procedure Note Latoya, Abril - 11/13/[address] [address] [address] Scan Report Signed Patient: Noble Valencia FMR#: [id number] 412 : 6Acct:[id number] Age/Sex: 69 / MADM Date: 11/13/24 Loc: HO.ED Attending Dr: Ordering Physician: Rafael Longoria MD Date of Service: 11/13/24 Procedure(s): CT head/brain wo IV con Accession Number(s): [id number] cc: Kym Sebastian MD; Rafael Longoria MD Report Number: [id number]: Total DLP = 0.00 mGy-cm EXAMINATION: CT [...] MD 11/13/2024 04:22 PM [facility] Dictated By: Francisco Odell MD Signed By: <Electronically signed by Francisco Odell MD in OV> 11/13/24 1622 DD/ 1220 TD/TT: 11/13/24 1615 Youth Care Professional: [facility] External Provider IMG CT PROCEDURES Final [...] ?? Tyrel SALTER et al. CASEY. 2013;310(19): 4853-1701 ?? (http://Feedo.VipVenta/faq/LLZ533) Non-HDL Cholesterol 78 <130 mg/dL (calc) [facility] Comment: For patients with diabetes plus 1 major ASCVD risk ?? factor, treating to a non-HDL-C goal of <100 mg/dL ?? (LDL-C of <70 mg/dL) is considered a therapeutic ?? option. Triglycerides 76 <150 mg/dL [facility] 04/02/2022 9:19 AM EDT us Kym Sebastian MD LAB BLOOD ORDERABLES Final Resul t [facility] [address] from Last 3 Months or Most Recently Relevant to Health Maintenance Insurance MEDICARE [facility] Care Teams Station Manager Relationship Specialty Start Date End Date Kym Sebastian MD [address] [place] [address] [place] [address] PCP - General Family Medicine 08/02/12 Vish Mendosa 05/25/24
--- OUTSIDE RECORDS SUMMARY | 2024-12-08 12:31 | XMS_ITS | Clinical Summary ---
Author Organization Unknown Care Team Providers Care Clinical Documentation Manager Name Role Phone JOELLEN COLVIN, MARYLOU Unavailable Unavailable NOHELIA RN, KARLY Unavailable Unavailable MELANIE RN, CORETTA Unavailable Unavailable HAIDER RN, SHAYE Unavailable Unavailable ALONSO RN, ALISSA Unavailable Unavailable ANAHI RN, NOEL Unavailable Unavailfern BARNEY RN, BERRY Unavailable Unavailable GHAZAL SOLUTIONS DEVELOPMENT ANALYST, JALYN Unavailable Un available LENKA RN, NITHYA [...] Unavailable CURET CH, ESTEFANÍA Unavailable Unavailable ANNMARIE SOLUTIONS DEVELOPMENT ANALYST, STUART Unavailable Unavailable PRIAJIR CH, FAY Unavailable Unavailable NIKITA SALDIVAR, FABIAN Unavailable Unavailfern DEVLIN RN, MEREDITH Unavailable Unavailable INDIGO DIRECTOR OF QUALITY CONTROL, RAMÓN Unavailable Unavailable BHAVNA RN, AUGUSTIN Unavailable Unavailab alberto SIERRA DIRECTOR OF QUALITY CONTROL, MAYA Unavailable Unavailable MARVA, JORGE LUIS Unavailable Unavailable ALEJANDRA RANDLEW, NATIVIDAD Unavailable Unavailable Payers Payer Name Policy Type Policy Number Effective Date Expira tion Date MEDICARE.NGS.HSP [id number] [place] [id number] [place] [id number] Problems Condition Name Condition Details Condition Category [...] 11-28 00:00: 00 ATHSCL HEART DISEASE OF [place] CORONARY ARTERY W/O ANG PCTRS Active 11-28 [...] 11-24 00:00: 00 11-28 00:00 :00 No [id number] Per instruc tions Per instructio ns (route: oral) Med Classific ation: Anti-Infe ctive Agents prednisone 20 mg tablet 11-28 00:00: 00 Yes [id number] BREATHING 2 tablet DAILY 2 tablet DAILY (route: oral) Med Classific ation: Endocrine metoprolol tartrate 100 mg tablet 2-04 00:00: 00 11-28 00:00 :00 No [id number] Per instruc tions TWICE A DAY Per instructio ns TWICE A DAY (route: oral) Med Classific ation: Cardiovas cular Therapy Agents aspirin 81 mg tablet,aayush yed release 11-02 00:00: 00 11-28 00:00 :00 No [id number] Per instruc tions ONCE PER DAY Per instructio ns ONCE PER DAY (route: oral) Med Classific ation: Hematolog ical Agents atorvastati n 20 mg tablet 11-02 00:00: 00 11-28 00:00 :00 No [id number] Per instruc tions EVERY DAY Per instructio ns EVERY DAY (route: oral) Med Classific ation: Cardiovas cular Therapy Agents famotidine 20 mg tablet 11-02 00:00: 00 11-28 00:00 :00 No [id number] Per instruc tions ONCE PER DAY Per instructio ns ONCE PER DAY (route: oral) Med Classific ation: Gastroint estinal Therapy Agents thiamine HCl (vitamin B1) 100 mg tablet 11-02 00:00: 00 11-28 00:00 :00 No [id number] Per instruc tions ONCE DAILY Per instructio ns ONCE DAILY (route: oral) Med Classific ation: Electroly te Balance-N utritiona l Products digoxin 125 mcg (0.125 mg) tablet 11-01 00:00: 00 11-28 00:00 :00 No [id number] Per instruc tions EVERY DAY Per instructio ns EVERY DAY (route: oral) Med Classific ation: Cardiovas cular Therapy Agents Ativan 0.5 mg tablet 11-28 00:00: 00 Yes [id number] ANXIETY 1 tablet EVERY 2 HOURS 1 tablet EVERY 2 HOURS (route: oral) Alternate Route: UNDER THE TONGUE. Med Classific ation: Central Nervous System Agents doxycycline hyclate 100 mg capsule 11-28 00:00: 00 12-07 23:59 :00 No [id number] PNA 1 capsule 2 TIMES DAILY 1 capsule 2 TIMES DAILY (route: oral) Med Classific ation: Anti-Infe ctive Agents Dulcolax (bisacodyl) 10 mg rectal suppository 11-28 00:00: 00 Yes [id number] CONSTIPATIO N 1 supposi tory, rectal DAILY 1 suppositor y, rectal DAILY (route: rectal) Med Classific ation: Gastroint estinal Therapy Agents Levsin 0.125 mg tablet 11-28 00:00: 00 Yes [id number] SECRETIONS 1 tablet EVERY 2 HOURS 1 tablet EVERY 2 HOURS (route: oral) Alternate Route: UNDER THE TONGUE. Med Classific ation: Gastroint estinal Therapy Agents Milk of Magnesia 400 mg/5 mL oral suspension 11-28 00:00: 00 Yes [id number] CONSTIPATIO N 30 mL DAILY 30 mL DAILY (route: oral) Med Classific ation: Gastroint estinal Therapy Agents morphine concentrate 100 mg/5 mL (20 mg/mL) oral solution 11-28 00:00: 00 Yes [id number] SOB, MODERATE TO SEVERE PAIN 4-10 0.25 mL EVERY 2 HOURS 0.25 mL EVERY 2 HOURS (route: oral) Alternate Route: UNDER THE TONGUE. Med Classific ation: Analgesic , Anti-infl ammatory or Antipyret ic oxygen gas for inhalation 11-28 00:00: 00 Yes [id number] HYPOXIA/RES PIRATORY FAILURE 2 Liter O2 - CONTINUOUS 2 Liter O2 - CONTINUOUS (route: inhalation ) Alternate Route: OXYGEN (O2) - NASAL CANNULA. Med Classific ation: Medical Supplies and Durable Medical Equipment (DME) Fleet Enema 19 gram-7 gram/118 mL 11-28 00:00: 00 Yes [id number] CONSTIPATIO N 118 mL DAILY 118 mL DAILY (route: rectal) Med Classific ation: Gastroint estinal Therapy Agents acetaminoph en 325 mg tablet 11-28 00:00: 00 Yes [id number] MILD PAIN 1-3/FEVER 2 tablet EVERY 6 HOURS 2 tablet EVERY 6 HOURS (route: oral) Med Classific ation: Analgesic , Anti-infl ammatory or Antipyret ic ipratropium 0.5 mg-albutero l 2.5 mg/2.5 mL solution for nebulizatio n 11-30 00:00: 00 Yes [id number] SOB DYSPNEA 2.5 mg EVERY 6 HOURS [...] Planned Date Details Comments Future Scheduled Test CLEAT THROWER TO EVALUATE PATIENT, DISEASE PROCESS, SYMPTOMS, AND OTHER CONDITIONS AND DEVELOP A NURSING PLAN OF CARE PART OF THE COMPREHENSIVE PLAN OF CARE DEVELOPMENT PROCESS. [code = CLEAT THROWER TO EVALUATE PATIENT, DISEASE PROCESS, SYMPTOMS, AND OTHER CONDITIONS AND DEVELOP A NURSING PLAN OF CARE PART OF THE COMPREHENSIVE PLAN OF CARE DEVELOPMENT PROCESS.] Future Scheduled Test RN/RESEARCH AFFILIATE/CH TO EVALUATE PT/CAREGIVER THOUGHTS REGARDING WHAT IS IMPORTANT/MEANINGFUL TO THEM TO IMPROVE QOL AND ENHANCE PATIENT EXPERIENCE WHILE ON HOSPICE SERVICES. [code = RN/RESEARCH AFFILIATE/CH TO EVALUATE PT/CAREGIVER THOUGHTS REGARDING WHAT IS [...] DEVELOP A PLAN OF CARE. [code = FIELD UNDERWRITER TO EVALUATE SOCIAL, EMOTIONAL AND FINANCIAL FACTORS RELATED TO THE PATIENT'S ILLNESS, NEED FOR ADDITIONAL CARE/RESOURCES, ADJUSTMENT TO CARE AND DEVELOP A PLAN OF CARE.] Future Scheduled Test OVERLOCK OPERATOR T O CONDUCT SPIRITUAL ASSESSMENT OF PATIENT/FAMILY/CAREGIVER AND DEVELOP A PLAN OF CARE. [code = OVERLOCK OPERATOR TO CONDUCT SPIRITUAL ASSESSMENT OF PATIENT/FAMILY/CAREGIVER AND [...] OF CARE INCLUDING. ASSISTANCE WITH SHOWERS/BATHING EVERY SOLUTIONS DEVELOPMENT ANALYST VISIT. ASSISTANCE WITH ALL ADLS PER MVA OPERATOR PLAN OF CARE WOUND CARE ORDERED, TREATMENTS [...] OF CARE INCLUDING. ASSISTANCE WITH SHOWERS/BATHING EVERY SOLUTIONS DEVELOPMENT ANALYST VISIT. ASSISTANCE WITH ALL ADLS PER MVA OPERATOR PLAN OF CARE WOUND CARE ORDERED, TREATMENTS [...] PREVENT INJURY Goal Provider Goal - A FIELD UNDERWRITER PLAN OF CARE WILL BE ESTABLISHED. Goal Provider Goal - A OVERLOCK OPERATOR PLAN OF CARE WILL BE ESTABLISHED. Goal [...] 2024-12-01 00:00:00 Outpatient NEW ADMISSION KARLY POZO [facility] [id number] 2024-12-01 00:00:00 IN A MEDICAL FACILITY, SUCH A HOSPITAL, ALF FACILITY (SNF), INTERMEDIA TE CARE FACILITY (ICF), OR FREE-STAND ING HOSPICE PATIENT HH/HSP/PAL - PATIENT 77.55
--- OUTSIDE RECORDS SUMMARY | 2024-12-08 12:31 | XMS_ITS | Data Portability ---
Author Organization [facility], PAIN OFFICE Address [address] [facility],[address] [place] [address] Assessment Encounter Date Assessment Date Assessment LastModified [...] Insurance issues. He has had injections at [facility] and has signed a release and [...] By Organization Details Last Modified Time 08/24/2016 [id number] He was advised against bedrest lasting longer than 4 days and to continue with activities as tolerated. The benefits of smoking cessation were reviewed with him. [email or web address] Not available 09/09/2016 14:17:28 Reason for Referral None Reported. Procedures Surgical History Date Name Laterality Status Provider Name and Address Organization Details Recorded Time 10/04/2012 CABG completed Nery Schmitz [facility] 08/24/2016 13:15:30 Imaging [...] propionate 50 mcg/actuatio n nasal spray,suspen thor [place] 1 spray every day by intranasal route. [...] /min 95 % 95 % 177.8 cm 05750.0 1 g 18.7 kg/m2 129 mm[Hg] 86 mm[Hg] Nery [facility] 6 13:08:46 Social History Question Answer Notes LastModified by Organizat ion Details LastModified Time Tobacco Smoking Status Current Every Day Smoker Not Available [facility] 07/19/2020 03:16:10 What Is Your Level Of Alcohol Consumption? Moderate [id number] Information not available 07/19/2020 Are You Currently Employed? No [id number] Information not available 07/19/2020 Which Illicit Or Recreational Drugs Have You Used? No [id number] Information not available 07/19/2020 Education 12 Information no t available 08/24/2016 Live Alone Or With Others? Alone Information not available 08/24/2016 Marital Status Informatio n not available 08/24/2016 How Much Tobacco Do You Smoke? 1 PPD [id number] Information not available 07/19/2020 How Many Years Have You Smoked Tobacco? 45 [id number] Information not available 07/19/2020 Sex: Unknown Functional [...] SNOMED-CT Code Diagnosis ICD10 Code Diagnosis Note [id number] Moriah Bustillo MD PAIN OFFICE [address] [facility] [address] [place] [address] 08/24/2016 12:47:41 09/09/2016 15:25:13 Displacement of lumbar intervertebral disc without myelopathy 88663382 M51.26 Lumbosacra l radiculitis 28252120 M54.17 Spinal brionna nosis of lumbar region 37085903 M48.06 Health Concerns Section Related Observation LastModified by Organization Detai ls LastModified Time None Recorded Concern Status LastModified by Organization Details LastModified Time None Recorded Advance Directives Directive None Recorded Payers Encounter Date Sequence Insurance Name Policy Number Policy Man[place]ana[place] Covered Member ID Manzanares Member ID Guarantor Name 08/24/2016 1 MEDICAID-[place]: [facility] Noble Valencia [id number] Noble Valencia Notes Date Note Type Note [...] 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 Alleviating Factors:nothing helps Aggravating Factors:going from sit [...] He states he had injections done at [facility] which helped temporarily Previous PT:did not help Previous healthcare financial analyst:did not help Moriah Bustillo MD [address] [place] [address] , [address], [place], [address], [place] [facility] 09/11/2016 12:09:41
== END 2024-12-07 10:55 | disposition home or self-care (01) ==
LOC: HO.HOSX 10:54
PROVIDERS: Visit Provider Physician Assistant
DX: Z13.89 Encounter for screening for other disorder (principal)